=== PATIENT | male | born 1940 | race Caucasian/White ===

== ENCOUNTER → 2017-12-11 09:37 | Outpatient (CLI) | payer MEDICARE, OTHER, SELFPAY ==
--- NOTE | 2017-12-11 09:43 | ECHOD_ITS ---
Reason For Study: S/P CABG Procedure This was a 2D Doppler, Color Flow transthoracic echocardiogram. Exam performed in department. Left Ventricle Normal LV size. Left ventricular systolic function is normal. The estimated ejection fraction is 50 %. Transmitral diastolic flow velocities suggest severe (stage 3) diastolic dysfunction. No regional wall motion abnormalities noted. Right Ventricle Normal RV size. Normal systolic function. Atria Normal left atrium. Normal right atrium. Mitral Valve Bileaflet diffuse mitral valve thickening. Mild (1+) eccentric mitral valve insufficiency. Tricuspid Valve Normal tricuspid valve. Mild (1+) tricuspid valve insufficiency. Pulmonary artery systolic pressure is 35 mmHg. Aortic Valve Trisinus/trileaflet aortic valve. Mild diffuse aortic valve thickening. Pulmonic Valve Normal pulmonic valve. Mild (1+) pulmonic valve insufficiency. Great Vessels Normal aortic root. The pulmonary artery is normal size. Normal inferior vena cava. Pericardium/Pleural Small pericardial effusion. MMode/2D Measurements & Calculations LVIDd: 5.6 cm IVSd: 1.1 cm Ao root diam: 3.1 cm LVIDs: 4.4 cm LVPWd: 1.1 cm RVDd: 3.3 cm FS: 21.0 % LAV(MOD-bp): 51.8 ml EDV(MOD-sp4): 157.6 ml SV(MOD-sp4): 77.5 ml LAV(MOD-bp) Indexed: 24.4 ml/m2 ESV(MOD-sp4): 80.1 ml LAV(MOD-sp2): 54.1 ml EF(MOD-sp4): 49.2 % LAV(MOD-sp4): 46.0 ml LA A4 area: 17.0 cm2 RA A4 area: 16.3 cm2 Doppler Measurements & Calculations MV E max dre: 90.9 cm/sec Lat Peak E' Dre: 7.4 cm/sec Med Peak E' Dre: 4.8 cm/sec MV A max dre: 39.4 cm/sec E/E' lat: 12.3 E/E' med: 19.0 MV E/A: 2.3 Ao V2 max: 128.9 cm/sec LV V1 max: 105.0 cm/sec PA V2 max: 128.1 cm/sec Ao max P.6 mmHg LV V1 max P.4 mmHg TR max dre: 278.4 cm/sec TR max P.0 mmHg Interpretation Summary Normal LV size. Left ventricular systolic function is normal. The estimated ejection fraction is 50 %. Transmitral diastolic flow velocities suggest severe (stage 3) diastolic dysfunction Mild (1+) tricuspid valve insufficiency. Bileaflet diffuse mitral valve thickening. Compared to prior study, changes are noted. Ordering Physician: Jose Marquez Referring Physician: YESSICA KOWALSKI Performed By: Taya Amezcua, ANNEMARIE
== END ==
PROVIDERS: Family Provider Internal Medicine; PCP Internal Medicine; Visit Provider Internal Medicine Cardiovascular Disease
DX: Z98.890 Other specified postprocedural states (principal)
CPT/HCPCS: 93306

== ENCOUNTER → 2018-03-25 09:31 | Outpatient (CLI) | payer MEDICARE, OTHER, SELFPAY ==
[2018-03-25 11:21] LABS: AST(SGOT) 24 U/L (15-37); Alanine Aminotransfer ALT/SGPT 29 U/L (16-61); Albumin, Serum 3.4 g/dL (3.2-5.0); Alkaline Phosphatase 52 U/L (45-117); Bilirubin, Direct 0.23 mg/dL (0.00-0.30); Cholesterol 115 mg/dL (200); Globulin 3.8 g/dL (2.2-4.2); High Density Lipoprotein 44 mg/dL; Protein, Total 7.2 g/dL (6.4-8.2); Triglycerides 67 mg/dL; Very Low Density Lipoprotein 13 mg/dL (5-40)
--- NOTE | 2018-03-25 13:09 | LEAS ---
Arterial Study - Arterial Study Arterial Study: Bilateral extremity noninvasive arterial exam at rest Right lower extremity The right PT and DP ankle-brachial indices at rest are 0.39 and 0.37 respectively with digital index of 0.35. The right PT and DP upper waveforms are biphasic. Volume pulse recordings do demonstrate application the calf but the ankle waveforms are moderately depressed as are the digital waveforms. Left lower extremity The left PT and DP ankle-brachial index at rest are 1.06 and 1.06 respectively. The left digital index is 0.53. The left PT and DP Doppler waveforms are biphasic. Volume pulse recordings do not demonstrate amplification the calf ankle waveforms moderately depressed but interestingly the digital waveforms are well maintained. Impression Findings are consistent with multi segmental peripheral vascular occlusive disease involving the right lower extremity in the range of rest pain. The location of the disease cannot be determined the likely popliteal and infrageniculate. Resting indices are normal for the left lower extremity but digital brachial index are diminished suggestive distal small vessel disease. The patient could not be exercised secondary to the severe disease on the right. An exercise protocol might further delineate additional disease on the left. Clinical correlation would be appropriate. Julio Cesar Suarez M.D., F.A.C.S.
== END ==
PROVIDERS: Family Provider Internal Medicine; PCP Internal Medicine; Visit Provider Physician Assistant Medical
DX: I73.9 Peripheral vascular disease, unspecified (principal); I25.10 Atherosclerotic heart disease of native coronary artery without angina pectoris; I77.9 Disorder of arteries and arterioles, unspecified; I25.2 Old myocardial infarction
CPT/HCPCS: 36415; 80061; 80076; 93923

== ENCOUNTER → 2018-10-28 09:26 | Outpatient (CLI) | payer MEDICARE, OTHER, SELFPAY ==
[2018-10-07 10:01] VITALS: BMI 24.9
--- NOTE | 2018-10-28 09:30 | CDU_ITS ---
Reason For Study: bruit Rt. Velocities/BP Lt. Velocities/BP Prox CCA 51.3/9.5 cm/sec. Prox CCA 65.6/9.5 cm/sec. Mid CCA 51.3/5.2 cm/sec. Mid CCA 55.1/10.8 cm/sec. Dist CCA 47.3/9.5 cm/sec. Dist CCA 40.8/8.2 cm/sec. Prox ICA 46.0/10.8 cm/sec. Prox ICA 76.0/13.4 cm/sec. Mid ICA 90.4/21.3 cm/sec. Mid ICA 130.2/27.9 cm/sec. Dist ICA 86.5/18.6 cm/sec. Dist ICA 95.5/20.6 cm/sec. Rt. ICA/CCA = 1.8. Lt. ICA/CCA = 2.4. Prox ECA 59.1 cm/sec. Prox ECA 69.5 cm/sec. Rt. Vert. 53.9/9.5 cm/sec. Lt. Vert. 35.5/10.2 cm/sec. Right Extracranial There is homogeneous, smooth atherosclerotic plaque noted in the right common carotid artery. There is homogeneous, smooth atherosclerotic plaque noted in the right internal carotid artery. There is heterogeneous, irregular atherosclerotic plaque noted in the right external carotid artery. Antegrade flow is noted in the right vertebral artery. Left Extracranial There is homogeneous, smooth atherosclerotic plaque noted in the left common carotid artery. There is heterogeneous, irregular atherosclerotic plaque noted in the left internal carotid artery. There is homogeneous, smooth atherosclerotic plaque noted in the left external carotid artery. Antegrade flow is noted in the left vertebral artery. 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
== END ==
PROVIDERS: Family Provider Internal Medicine; PCP Internal Medicine; Referring Provider Internal Medicine Cardiovascular Disease; Visit Provider Internal Medicine Cardiovascular Disease
DX: I77.9 Disorder of arteries and arterioles, unspecified (principal); R55 Syncope and collapse
CPT/HCPCS: 93880

== ENCOUNTER → 2019-04-29 12:50 | Outpatient (CLI) | payer MEDICARE, OTHER, SELFPAY ==
[2019-04-12 13:26] VITALS: BMI 24.7
--- NOTE | 2019-04-29 12:52 | ECHOCS_ITS ---
Reason For Study: MURMUR Procedure This was a 2D Doppler, Color Flow transthoracic echocardiogram. The study was technically difficult. PT had difficulty lying in the left lateral decubitus position even with wedge aids. Contrast injection was performed. Exam performed in department. Left Ventricle Normal LV size. The estimated ejection fraction is 40 %. Moderate segmental systolic dysfunction (see wall motion). Stage 2 diastolic dysfunction. Mid-Inferior: Akinetic. Infero-Basal: Akinetic. Inferior [place] : Hypokinetic. Basal inferoseptal: Hypokinetic. Mid-Posterior: Hypokinetic. Right Ventricle Normal RV size. Normal systolic function. Atria The left atrium is moderately enlarged. Normal right atrium. Mitral Valve Mild diffuse mitral valve thickening. Mild (1+) eccentric mitral valve insufficiency. Tricuspid Valve Normal tricuspid valve. Aortic Valve Trisinus/trileaflet aortic valve. Mild focal aortic valve calcification. Pulmonic Valve Normal pulmonic valve. Great Vessels Normal aortic root. The pulmonary artery is normal size. Normal inferior vena cava. Pericardium/Pleural No pericardial effusion. Medication 22 gauge I.V. with prn adaptor inserted into right arm. Diluted definity 3.0ml given slow IV push to enhance endocardial definition. MMode/2D Measurements & Calculations LVIDd: 5.8 cm IVSd: 1.1 cm Ao root diam: 3.1 cm LVIDs: 3.9 cm LVPWd: 1.1 cm FS: 32.4 % LAV(MOD-bp): 90.6 ml LA A4 area: 26.3 cm2 LA dimension(2D): 4.0 cm LAV(MOD-bp) Indexed: 44.3 ml/m2 LAV(MOD-sp2): 77.5 ml LAV(MOD-sp4): 101.7 ml RA A4 area: 17.1 cm2 Time Measurements MV dec time: 0.18 sec Doppler Measurements & Calculations MV E max dre: 79.2 cm/sec Lat Peak E' Dre: 7.7 cm/sec Med Peak E' Dre: 3.7 cm/sec MV A max dre: 62.8 cm/sec E/E' lat: 10.3 E/E' med: 21.1 MV E/A: 1.3 Ao V2 max: 95.1 cm/sec LV V1 max: 72.8 cm/sec PA V2 max: 100.3 cm/sec Ao max P.6 mmHg LV V1 max P.1 mmHg Interpretation Summary Normal LV size. The estimated ejection fraction is 40 %. Moderate segmental systolic dysfunction (see wall motion). Stage 2 diastolic dysfunction. The left atrium is moderately enlarged. Segmental wall motion is new. Compared to previous study, the left ventricular systolic function has worsened.. Ordering Physician: Seema Yanes Referring Physician: Karen Lowe Performed By: Tamika Marley RDCS, RVT
== END ==
PROVIDERS: Family Provider Internal Medicine; PCP Internal Medicine; Referring Provider Physician Assistant Medical; Visit Provider Physician Assistant Medical
DX: I25.10 Atherosclerotic heart disease of native coronary artery without angina pectoris (principal); R01.1 Cardiac murmur, unspecified
CPT/HCPCS: 93306; Q9957; A4216; C8929

== ENCOUNTER 2019-08-21 20:11 | Emergency (ER) | payer MEDICARE, OTHER, SELFPAY ==
[2019-04-12 13:26] VITALS: BMI 24.7
[2019-08-21 20:12] VITALS: BP 149/84; PULSE 107; RESP 24; TEMP 36.8; O2SAT 100; BMI 25.2
--- NOTE | 2019-08-21 20:40 | EKG12_ITS ---
Test Reason : WEAKNESS Blood Pressure : / mmHG Vent. Rate : 103 BPM Atrial Rate : 103 BPM P-R Int : 218 ms QRS Dur : 138 ms QT Int : 352 ms P-R-T Axes : 037 -65 095 degrees QTc Int : 461 ms Sinus tachycardia with 1st degree A-V block with Premature supraventricular complexes Possible Left atrial enlargement Left axis deviation Right bundle branch block Left ventricular hypertrophy with repolarization abnormality Lateral infarct , age undetermined Inferior infarct , age undetermined Abnormal ECG Confirmed by LUISA URENA, CARLOS ([id number]), book or script editor JUANITA JANE ([id number]) on 08/24/2019 1:40:31 PM Referred By: BOUBACAR Confirmed By:CARLOS MORAN MD
--- NOTE | 2019-08-21 20:40 | RAD_ITS ---
STUDY: X-RAY CHEST REASON FOR EXAM: Male, 79 years old. Pt has been weak for last 2 days, Pleural effusion, CAD, CABG TECHNIQUE: Single frontal view of the chest. COMPARISON: 07/31/27. FINDINGS: Cardiac silhouette unremarkable. Pulmonary vascularity unremarkable. Aorta unremarkable. Median sternotomy wires are noted. Left base opacity opacity No pleural effusions. Upper abdomen unremarkable. Osseous structures intact. No pneumothorax. RAD/Chest 1 View (Portable) IMPRESSION: Opacity at the left base most likely represents atelectasis and effusion. Underlying pneumonia should be excluded clinically. Electronically Signed: Zohaib Carrillo, at 21:09 EST Tel , Service support ,
[2019-08-21 20:55] LABS: Absolute Neutrophil Count 14.3 X10^3/uL (2.0-7.7); Basophil# 0.03 X10^3/uL; Basophil% 0.2 % (0-1); Eosinophil# 0.03 X10^3/uL; Eosinophils% 0.2 % (0-5); Hematocrit 39.4 % (40-54); Hemoglobin 13.2 g/dL (13.0-16.5); Lymphocyte % 3.6 % (19-41); Mean Corp Hgb Conc 33.5 g/dL (32-36); Mean Corpuscular Hgb 30.3 pg (27.0-32.0); Mean Corpuscular Volume 90.4 fL (80-94); Mean Platelet Vol. 11.5 fl (6.2-12.0); Monocyte# 1.66 X10^3/uL; NRBC Flagged by Analyzer 0 % (0-5); Neutrophil # 14.25 X10^3/uL (2.7-7.7); Neutrophil % 85.5 % (47-70); POSITIVE DIFFERENTIAL YES; Platelet Count 250 K/mm3 (150-450); RBC Distribution Width CV 13.9 % (11.6-14.6); RBC Distribution Width SD 46.3 fl (35.1-43.9); Red Blood Count 4.36 M/mm3 (4.6-6.2); White Blood Count 16.7 K/mm3 (4.4-11.0)
[2019-08-21 20:56] LABS: Differential Indicated SCAN CRITERIA MET
[2019-08-21 21:01] LABS: International Normalized Ratio 1.3; Prothrombin Time (Protime)PT. 16.4 SECONDS (11.7-14.9)
[2019-08-21 21:02] LABS: Partial Thromboplast Time 42.6 Seconds (24.1-36.2)
[2019-08-21] MEDS: 0.9% Normal Saline 1,000 ML 999 ML IV (21:05)
[2019-08-21 21:06] VITALS: BP 142/78; PULSE 99; RESP 18; O2SAT 99
[2019-08-21 21:10] LABS: ALB/GLOB Ratio 0.7 RATIO (0.9-2.4); AST(SGOT) 159 U/L (15-37); Alanine Aminotransfer ALT/SGPT 132 U/L (16-61); Albumin, Serum 3.1 g/dL (3.2-5.0); Alkaline Phosphatase 107 U/L (45-117); Anion Gap 7 (5-15); BUN 26 mg/dL (7-18); BUN/Creat Ratio 19.3 RATIO (10-20); Calcium,Total 9.5 mg/dL (8.5-10.1); Chloride 102 mmol/L (98-107); Creatinine, Serum 1.35 mg/dL (0.70-1.30); EST Glomerular Filtration Rate 54 mL/min (>60); Est Glom Filt Rate - Afr Amer 66 mL/min (>60); Globulin 4.6 g/dL (2.2-4.2); Glucose 198 mg/dL (74-106); Potassium 4.2 mmol/L (3.5-5.1); Protein, Total 7.7 g/dL (6.4-8.2); Sodium Level 136 mmol/L (136-145)
--- NOTE | 2019-08-21 21:26 | CT_ITS ---
ACR Level 3 findings have been noted. An addendum which confirms receipt of the report will follow. HISTORY: WEAKNESS X 2 DAYS,ELEVATED WBC,LT SIDED PLEURAL EFFUSION BOGDAN ON CXR,VOMITINGHX:DIABETES,CAD WITH CABG TECHNIQUE: Helically acquired images were obtained of the chest. A radiation dose optimization technique was used for this scan. IV Contrast dosage and agent: None. COMPARISON: Comparison chest x-ray is from 1-1/2 hours earlier FINDINGS: # of images incl. paperwork: [phone] Sternal wires are present. The sternum has incompletely healed from the median sternotomy, but it is a chronic finding. Mediastinal clips related to CABG LUNGS AND LARGE AIRWAYS: Left lower lobe is mostly collapsed with little aeration. Volume loss within the left upper lobe as well. An assessory fissure is present within the right lower lobe extending from a right hilar partially calcified mass. This mass measures 3.7 x 2.5 cm. There appears to be some gas in a cavity surrounding this mass. There is some bronchiectasis to the bronchi surrounding the mass and peripheral to the mass. This mass appears to be within the bronchus to the right lower lobe perhaps. PLEURA: The moderate-sized left pleural effusion appears to have an enhancing rind of tissue surrounding it suggesting that it is chronic and possibly an empyema. Tiny right pleural effusion BONES: Degenerative disc disease. No lytic or blastic disease. Within the thoracic spine vertebral body height is well preserved other than some mild wedging of mid thoracic spine at the apex of a mild kyphosis. Many bridging anterior enthesophytes. Some facet arthropathy. Ossification of the interspinous ligaments at many levels without ankylosing. No acute rib lesions are perceived HEART AND PERICARDIUM: Severe coronary artery calcific ASCVD. Some left ventricular hypertrophy VESSELS: Atherosclerotic plaque within the thoracic aorta with slight elongation of the aorta, but without aneurysm MEDIASTINUM AND ELINA: Some mediastinal adenopathy is present. I can perceived no hilar adenopathy, however, differentiation of hilar tissues without the use of intravenous contrast is diminished SOFT TISSUES: Included thyroid gland is unremarkable. There is no axillary, supraclavicular or lower cervical adenopathy. UPPER ABDOMEN: The gallbladder is distended. A right renal mass is present, likely a benign cyst. CT/Chest without Contrast IMPRESSION: Moderately sized loculated left pleural effusion possibly an empyema. Severe left lower lobe volume loss. Severe coronary artery calcific ASCVD. 3.7 x 2.5 cm mass within the right hilar region extending to the right lower lobe with air surrounding this mass. I believe this may be a large broncholith. A fungus ball with calcification from chronic infection is also within the differential. Individualized dose optimization techniques were used for this CT. at 2323 Reported and signed by: Antonino Kohli MD Electronically Signed: Antonino Kohli MD at 23:21 EST Tel , Service support ,
--- NOTE | 2019-08-21 21:26 | CT_ITS ---
HISTORY: WEAKNESS AND VOMITING X 2 DAYS,ELEVATED WBC,LT SIDED PLEURAL EFFUSION SEEN ON CXRHX:DIABETES,CAD WITH CABG TECHNIQUE: Helically acquired images were obtained of the abdomen and pelvis following the intravenous administration of 100 ML of Isovue 300 Iodinated contrast. 2D reformats. No oral contrast was administered. A radiation dose optimization technique was used for this scan. COMPARISON: No previous cross-sectional imaging of the abdomen and pelvis FINDINGS: # of images incl. paperwork: [phone] LUNG BASES: Rim-enhancing rind of left pleural fluid suggestive of possible empyema. Severe volume loss to the left hemithorax. Some interstitial pulmonary edema. Coronary artery calcific ASCVD. Left ventricular hypertrophy. CT abdomen: Distended gallbladder with thickened enhancing wall. The gallbladder is without identified stones. Multilevel degenerative disc disease with lower lumbar spine facet arthropathy. Liver, spleen, pancreas, and adrenal glands, are normal. Hypodense mass within the right kidney statistically represents a benign cyst. There appears to be some old scarring within the superior lateral aspect of the left kidney.. The aorta is diseased with atherosclerotic plaque, without aneurysm or dissection. CT pelvis: No ascites is present. The prostate gland is not enlarged. The appendix is normal. Series 5 image 84. The bladder is normal. Bowel-gas pattern is normal. CT/Abdomen/Pelvis W IV Cont ONLY IMPRESSION: Rind of tissue in the left hemithorax consistent with a empyema. Calcified mass within the bronchi to the right lower lobe better described on the chest CT findings. Gallbladder wall thickening and distention of the gallbladder suggestive of acute cholecystitis. Some additional images were obtained through the pelvis and scrotum after a delay. The bladder begins to fill with excreted contrast. A specific mass is present within the right hemipelvis of unknown etiology. It measures 8 cm. It may just be a large right hydrocele. It appears to be herniating up into the right inguinal canal. Recommend comparison to physical exam, and consider possible testicular ultrasound for further evaluation. Individualized dose optimization techniques were used for this CT. at 2328 Reported and signed by: Antonino Kohli MD Electronically Signed: Antonino Kohli MD at 23:27 EST Tel , Service support ,
[2019-08-21 21:31] LABS: Differential Comment SCANNED
[2019-08-21 21:56] VITALS: TEMP 37.4
[2019-08-21 22:30] LABS: Lactic Acid 1.3 mmol/L (0.4-1.9)
--- NOTE | 2019-08-21 22:34 | ED.DCSUM_ITS ---
History of Present Illness Chief Complaint: Weakness Informant: Patient Onset: Days Context: Gradual Onset Timing: Continuous Narrative: Patient is a 79-year-old male presenting with worsening weakness. His symptoms have been significantly worsened over the past few days but the exact time of onset is not clear. She notes 3 days ago he had an episode of vomiting. He notes he had intermittent pain in his right upper quadrant that he describes as a gas bubble. He feels that if he rubs it the pain gets better. Patient also notes has had intermittent pain in his arms and his shoulders. He denies any shortness of breath or chest pain. He has had associated cough. Today he was so weak that he was not able to get himself out of bed. Family called 911 because of this. Patient actually had a lower himself to the ground because he was so weak he could not stand. Patient denies any fever or chills. He states his cough is been productive of some sputum intermittently. Patient notes he has been eating and drinking less because he has been feeling so unwell. Patient denies any other complaints at this time. Past Medical History - Allergies and Home Meds Allergies/Adverse Reactions: Allergies Ovvgejj-Kon-Clc Reductase Inhibitor Adverse Reaction (Severe, Verified 08/21/19 20:15) mylagias Primary Care Physician: Karen Lowe MD [Primary Care Provider] - Past Medical History: - - [place] artery disease, history of [place], insulin-dependent diabetes mellitus, history of stroke as a complication of his CABG Surgical History: coronary bypass surgery Smoking Status: Never smoker Alcohol: None Drugs: None - Family History Paternal Family History: Reports: Heart Disease Review of Systems General: Reports: Malaise, Sweats. Denies: Chills, Fever Eyes: Denies: Visual changes - bilaterally, Diplopia ENT: Denies: Rhinorrhea, Sore throat Cardiovascular: Denies: Chest pain, Palpitations Respiratory: Reports: Cough. Denies: Dyspnea, Dyspnea on exertion Gastrointestinal: Reports: Abdominal pain - Upper quadrant?intermittent, Nausea, Vomiting - X1. Denies: Diarrhea, Melena, Hematochezia Genitourinary: Denies: Dysuria, Hematuria, Frequency Musculoskeletal: Denies: Back pain, Extremity Pain Skin: Denies: Rash, Wounds Neurological: Reports: Weakness - Generalized. Denies: Headache, Numbness Physical Exam Vital Signs/Narrative: Vital Signs Temp Pulse Resp BP Pulse Ox 08/21/19 21:56 99.4 F H 08/21/19 21:06 99 18 142/78 H 99 08/21/19 20:12 98.3 F 107 H 24 H 149/84 H 100 Inital Vital Signs reviewed: Yes General: Well nourished, Well developed, No Acute Distress Head: Normocephalic, Atraumatic Eyes: Perrl, EOMI ENT: Moist mucous membranes, No rhinorrhea, TM's clear Neck: Supple, Nontender, No JVD Cardiovascular: Regular rhythm, No murmurs, Tachycardia Respiratory: No distress, Chest nontender, Diminished - Left side. Negative for: Rales, Rhonchi, Wheezing, Chest tenderness Abdomen: Soft, Nondistended, Normal bowel sounds, Tender - Mild tenderness, nonspecific. Negative for: Guarding, Rebound tenderness Back: Nontender, Normal Inspection. Negative for: CVA tenderness Extremities: Nontender, No edema Skin: Normal color, No rash Neurological: Alert, Oriented x3, Cranial nerves II-XII grossly intact, Normal Strength, Normal Sensation Psychological: Normal affect, Normal Mood Diagnostic/Tx/Re-eval Chest X-Ray - ED: 1 View, Read by ED Physician, Read by Radiologist, Left Effusion Clinical Impression(s) from Imaging Studies Chest X-Ray 08/21/19 20:40 IMPRESSION: Opacity at the left base most likely represents atelectasis and effusion. Underlying pneumonia should be excluded clinically. Electronically Signed: Zohaib Carrillo, at 21:09 EST Tel , Service support , Abdomen/Pelvis CT 08/21/19 21:26 IMPRESSION: Rind of tissue in the left hemithorax consistent with a empyema. Calcified mass within the bronchi to the right lower lobe better described on the chest CT findings. Gallbladder wall thickening and distention of the gallbladder suggestive of acute cholecystitis. Some additional images were obtained through the pelvis and scrotum after a delay. The bladder begins to fill with excreted contrast. A specific mass is present within the right hemipelvis of unknown etiology. It measures 8 cm. It may just be a large right hydrocele. It appears to be herniating up into the right inguinal canal. Recommend comparison to physical exam, and consider possible testicular ultrasound for further evaluation. Individualized dose optimization techniques were used for this CT. at 2328 Reported and signed by: Antonino Kohli MD Electronically Signed: Antonino Kohli MD at 23:27 EST Tel , Service support , Chest CT 08/21/19 21:26 IMPRESSION: Moderately sized loculated left pleural effusion possibly an empyema. Severe left lower lobe volume loss. Severe coronary artery calcific ASCVD. 3.7 x 2.5 cm mass within the right hilar region extending to the right lower lobe with air surrounding this mass. I believe this may be a large broncholith. A fungus ball with calcification from chronic infection is also within the differential. Individualized dose optimization techniques were used for this CT. at 2323 Reported and signed by: Antonino Kohli MD Electronically Signed: Antonino Kohli MD at 23:21 EST Tel , Service support , ADDENDUM: 08/21/19 2332 IMPRESSION: Moderately sized loculated left pleural effusion possibly an empyema. Severe left lower lobe volume loss. Severe coronary artery calcific ASCVD. 3.7 x 2.5 cm mass within the right hilar region extending to the right lower lobe with air surrounding this mass. I believe this may be a large broncholith. A fungus ball with calcification from chronic infection is also within the differential. Individualized dose optimization techniques were used for this CT. at 2323 Reported and signed by: Antonino Kohli MD N.B. : Dr. Angela Peraza MD, confirmed on 08/21/2019 23:25:54 (ET) that the referring physician received the radiology report. Electronically Signed: Antonino Kohli MD at 23:21 EST Tel , Service support , Laboratory Data 08/21/19 08/21/19 08/21/19 20:20 20:20 20:20 WBC 16.7 H RBC 4.36 L Hgb 13.2 Hct 39.4 L MCV 90.4 MCH 30.3 MCHC 33.5 RDW Std Deviation 46.3 H RDW Coeff of Sacha 13.9 Plt Count 250 MPV 11.5 Immature Gran % (Auto) 0.500 Neut % (Auto) 85.5 H Lymph % (Auto) 3.6 L [place] % (Auto) 10.0 Eos % (Auto) 0.2 Baso % (Auto) 0.2 Absolute Neuts (auto) 14.3 H Absolute Lymphs (auto) 0.60 L Nucleated RBC % 0 Differential Comment SCANNED Diff Path Review May foll PT 16.4 H INR 1.3 APTT 42.6 H Sodium 136 Potassium 4.2 Chloride 102 Carbon Dioxide 27.0 Anion Gap 7 BUN 26 H Creatinine 1.35 H Estim Creat Clear Calc 49.50 Est GFR (MDRD) Af Amer 66 Est GFR (MDRD) Non-Af 54 L BUN/Creatinine Ratio 19.3 Glucose 198 H Lactic Acid Calcium 9.5 Total Bilirubin 4.30 H Direct Bilirubin AST 159 H ALT 132 H Alkaline Phosphatase 107 Troponin I 0.033 Total Protein 7.7 Albumin 3.1 L Globulin 4.6 H Albumin/Globulin Ratio 0.7 L Urine Color Urine Clarity Urine pH Ur Specific [place] Urine Protein Urine Glucose (UA) Urine Ketones Urine Occult Blood Urine Nitrite Urine Bilirubin Urine Urobilinogen Ur Leukocyte Esterase Urine RBC Urine WBC Ur Squamous Epith Cells Ur Renal Epithelial Cell Urine Bacteria Hyaline Casts Urine Mucus 08/21/19 08/21/19 08/21/19 20:20 20:58 21:50 WBC RBC Hgb Hct MCV MCH MCHC RDW Std Deviation RDW Coeff of Sacha Plt Count MPV Immature Gran % (Auto) Neut % (Auto) Lymph % (Auto) [place] % (Auto) Eos % (Auto) Baso % (Auto) Absolute Neuts (auto) Absolute Lymphs (auto) Nucleated RBC % Differential Comment Diff Path Review PT INR APTT Sodium Potassium Chloride Carbon Dioxide Anion Gap BUN Creatinine Estim Creat Clear Calc Est GFR (MDRD) Af Amer Est GFR (MDRD) Non-Af BUN/Creatinine Ratio Glucose Lactic Acid Cancelled 1.3 Calcium Total Bilirubin Direct Bilirubin 3.33 H AST ALT Alkaline Phosphatase Troponin I Total Protein Albumin Globulin Albumin/Globulin Ratio Urine Color Urine Clarity Urine pH Ur Specific [place] Urine Protein Urine Glucose (UA) Urine Ketones Urine Occult Blood Urine Nitrite Urine Bilirubin Urine Urobilinogen Ur Leukocyte Esterase Urine RBC Urine WBC Ur Squamous Epith Cells Ur Renal Epithelial Cell Urine Bacteria Hyaline Casts Urine Mucus 08/21/19 22:45 WBC RBC Hgb Hct MCV MCH MCHC RDW Std Deviation RDW Coeff of Sacha Plt Count MPV Immature Gran % (Auto) Neut % (Auto) Lymph % (Auto) [place] % (Auto) Eos % (Auto) Baso % (Auto) Absolute Neuts (auto) Absolute Lymphs (auto) Nucleated RBC % Differential Comment Diff Path Review PT INR APTT Sodium Potassium Chloride Carbon Dioxide Anion Gap BUN Creatinine Estim Creat Clear Calc Est GFR (MDRD) Af Amer Est GFR (MDRD) Non-Af BUN/Creatinine Ratio Glucose Lactic Acid Calcium Total Bilirubin Direct Bilirubin AST ALT Alkaline Phosphatase Troponin I Total Protein Albumin Globulin Albumin/Globulin Ratio Urine Color Dk Yello Urine Clarity Sl. Cloudy Urine pH 5.0 Ur Specific [place] 1.015 Urine Protein 100 H Urine Glucose (UA) Normal Urine Ketones 5 H Urine Occult Blood 25 H Urine Nitrite Negative Urine Bilirubin 3 H Urine Urobilinogen 12 H Ur Leukocyte Esterase 25 H Urine RBC 0 SEEN Urine WBC 0 SEEN Ur Squamous Epith Cells 0-5 SEEN Ur Renal Epithelial Cell 0-5 SEEN Urine Bacteria RARE Hyaline Casts 0-5 SEEN Urine Mucus RARE - Rhythm Strip Rhythm Strip: Sinus Tach Rate: 103 Ectopy: None - EKG Initial EKG Interpretation: Sinus Tachycardia, RBBB, - - Sinus tachycardia at a rate of 103 with first-degree AV block AR interval 218 QRS 138 QTc [address] depressions in V2 and V3, no reciprocal changes Compared to prior EKG on 07/21/[address] depressions are more pronounced but there is no other changes - Medical Decision Making She is evaluated for generalized weakness. On arrival he is tachycardic and tachypneic. He is not requiring supplemental oxygen and his blood pressure is normal. Patient does appear clinically dry. He also comments that he has had episode of vomiting and this intermittent abdominal discomfort. Flu swab is negative. EKG shows some ST depressions in V3. I suspect this is more of a strain pattern secondary to his critical illness. Patient's troponin is normal. He is not having any chest pain. Patient is given a liter of IV fluids. Chest x-ray shows a possible effusion on the left side with questionable underlying pneumonia. CT of the chest without contrast is added on for further evaluation of this. In addition patient is found to have an elevated bilirubin, ALT and AST. His alkaline phosphatase is normal. Leukocytosis is present on his CBC. Patient has a mild VALERIO. On repeat abdominal exam patient is having some tenderness in his right upper quadrant. A CT of the abdomen pelvis with IV contrast is added on. CT of the chest shows a likely empyema on the left as wel l as mass on the right concerning for broncholith or possibly a fungal ball. CT of the abdomen and pelvis shows likely acute cholecystitis as well as a right hemipelvis mass (is possibly a large right hydrocele). Patient's clinical presentation is most concerning for acute cholecystitis. He is not been having any testicular pain or swelling. I discussed with Dr. Power, surgery on- call, who is concerned because we do not have cardiothoracic capabilities and recommends transfer to a higher level of care. Patient and family would like to go to [facility]. Transfer line discussed the case with cardiothoracic as well as general surgery. They request the patient be transferred to the emergency room where surgical scrub technologist can evaluate him and final disposition can be made. Case discussed with ER physician, Dr. Arango who is agreeable with plan. Patient is started on vancomycin and Zosyn prior to transfer. Patient is kept n.p.o. Patient and family are counseled on plan. Patient remains hemodynamically stable in the emergency room. ED Disposition - Plan for ED Patient: Disposition: [facility] Diagnosis: Acute cholecystitis, Transaminitis, Leukocytosis, Elevated bilirubin, Empyema of left pleural space, Mass of right lung, Dehydration, Abnormal EKG, VALERIO (acute kidney injury) Referrals: Karen Lowe MD [Primary Care Provider] -
[2019-08-21 22:52] LABS: Red Blood Cells-Urine 0 SEEN /hpf (0-5); White Blood Cells 0 SEEN /hpf (0-5)
[2019-08-21 22:58] LABS: Glucose, Dipstick Normal (Normal); Ketone-Dipstick 5 mg/dl (Negative); Leukocyte Esterase-Dipstick 25 /ul (Negative); Nitrite-Dipstick Negative (Negative); Occult Blood-Urine 25 /ul (Negative); Protein-Dipstick 100 mg/dl (Negative); Specific Gravity, Urine 1.015 (1.002-1.030); Urine Clarity Sl. Cloudy (Clear); Urine Urobilinogen 12 mg/dl (Normal)
[2019-08-21 22:59] VITALS: BP 136/68; PULSE 95; RESP 20; O2SAT 98
[2019-08-21 22:59] LABS: Color, Urine Dk Yello (Yellow); Urine Bilirubin Dipstick 3 mg/dL (Negative)
[2019-08-21 22:59] LABS: Bilirubin, Direct 3.33 mg/dL (0.00-0.30)
[2019-08-21 23:00] VITALS: BP 136/68; PULSE 95; RESP 20; O2SAT 98
[2019-08-21 23:04] LABS: Renal Epithelial Cells 0-5 SEEN /hpf (0-5); Squamous Epithelial Cells - UA 0-5 SEEN /hpf (0-5)
[2019-08-21 23:05] LABS: Bacteria RARE /hpf (None Seen); Mucous, Urine RARE /hpf (<or=2+)
[2019-08-21 23:06] LABS: Hyaline Cast 0-5 SEEN /lpf (0-5)
[2019-08-22 00:14] VITALS: BP 147/77; PULSE 94; RESP 20; TEMP 36.6; O2SAT 98
--- NOTE | 2019-08-22 00:16 | ED.RN ---
DR. GRANDA INFORMED OF SEPSIS ALERT. NO NEW ORDERS AT THIS TIME. PT AWAITING TRANSFER TO [facility].
[2019-08-22 01:03] VITALS: BP 153/74; PULSE 95; RESP 27; TEMP 36.6; O2SAT 98
[2019-08-22 01:05] VITALS: TEMP 36.6
--- NOTE | 2019-08-22 01:38 | ED.RN ---
IV VANCOMYCIN CONTINUED ON TRANSPORT.
[2019-08-22 12:30] LABS: Pathologist Review Reviewed
== END 2019-08-22 01:45 | disposition short-term general hospital (02) ==
PROVIDERS: Emergency Provider Emergency Medicine; PCP Internal Medicine
DX: K81.0 Acute cholecystitis (principal); R74.0 Nonspecific elevation of levels of transaminase and lactic acid dehydrogenase [LDH]; D72.829 Elevated white blood cell count, unspecified; E80.6 Other disorders of bilirubin metabolism; J86.9 Pyothorax without fistula; R91.8 Other nonspecific abnormal finding of lung field; E86.0 Dehydration; R94.31 Abnormal electrocardiogram [ECG] [EKG]; N17.9 Acute kidney failure, unspecified; R10.11 Right upper quadrant pain; I45.10 Unspecified right bundle-branch block; I25.2 Old myocardial infarction; E11.9 Type 2 diabetes mellitus without complications; Z79.4 Long term (current) use of insulin; Z95.1 Presence of aortocoronary bypass graft; Z86.73 Personal history of transient ischemic attack (TIA), and cerebral infarction without residual deficits
CPT/HCPCS: 36415; 71045; 71250; 74177; 80053; 81001; 82248; 83605; 84484; 85025; 85610; 85730; 87040; 87086; 87804; 93005; 96361; 96365; 96367; 99285; J7030; J7050; Q9967; A4216

== ENCOUNTER 2020-07-22 12:02 | Inpatient (IN) | payer MEDICARE, OTHER, SELFPAY ==
[2020-05-16 13:01] VITALS: BMI 25.0
[2020-07-22] VITALS (12 sets, daily range): BP systolic 135–169; BP diastolic 11–101; PULSE 81–104; RESP 15–27; TEMP 36.7–37.3; O2SAT 95–100; BMI 25.2; BMI 24.6
--- NOTE | 2020-07-22 12:34 | RAD_ITS ---
STUDY: X-RAY CHEST REASON FOR EXAM: Male, 79 years old. Slid out of bed yesterday TECHNIQUE: Single AP portable view of the chest. COMPARISON: 08/21/2019 FINDINGS: Persistent blunting of left costophrenic angle. Mild stranding/scarring in the left lung base. No new infiltrate is seen. Sternal cerclage wires and vascular clips are present from a prior sternotomy and coronary artery bypass graft procedure (CABG). Normal mediastinum and pretty. Normal visualized pulmonary arteries. Normal visualized aortic arch and descending thoracic aorta. No demonstrated acute osseous changes. There is no demonstrated abnormality of the visualized soft tissue structures of the upper abdomen. RAD/Chest 1 View (Portable) IMPRESSION: Blunting of the left costophrenic angle likely due to pleural thickening. Otherwise no active pulmonary disease. Electronically Signed: Esteban Zaidi MD at 13:24 EST Tel , Service support ,
--- NOTE | 2020-07-22 12:34 | EKG12_ITS ---
Test Reason : Blood Pressure : / mmHG Vent. Rate : 095 BPM Atrial Rate : 095 BPM P-R Int : 292 ms QRS Dur : 140 ms QT Int : 404 ms P-R-T Axes : -23 -65 100 degrees QTc Int : 507 ms Sinus rhythm with 1st degree A-V block with Premature supraventricular complexes and with occasional Premature ventricular complexes Left axis deviation Right bundle branch block Left ventricular hypertrophy with repolarization abnormality Possible Lateral infarct , age undetermined Inferior infarct , age undetermined Abnormal ECG Confirmed by KRIS URENA, MARCO ([id number]), supervising editor trailer JUANITA JANE ([id number]) on 07/26/2020 10:19:07 AM Referred By: GUILLAUME Confirmed By:STEPHANIE PONCE MD
--- NOTE | 2020-07-22 12:36 | ED.DCSUM_ITS ---
History of Present Illness Chief Complaint: General Illness Informant: Patient Narrative: 79-year-old male presenting with generalized weakness. He states he had a fall yesterday in which he states he slid down off of his mattress. He denies hitting his head. Prior to this he felt lightheaded and generally weak. Normally is able to ambulate. He does not describe vertiginous dizziness. He denies chest pain, palpitations, shortness of breath. He has a chronic cough which is unchanged. She denies fever, chills, change in taste or smell. On arrival to the ED he had one episode of emesis but he states it is because the EMS cot was spun around several times and made him feel dizzy. 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 Past Medical History - Allergies and Home Meds Allergies/Adverse Reactions: Allergies Mheyjyn-Ipl-Qzp Reductase Inhibitor Adverse Reaction (Severe, Verified 07/22/20 12:09) mylagias lisinopril Adverse Reaction (Verified 07/22/20 12:09) cough Prior records reviewed: Yes Past Medical History: - - Reviewed in problem list Surgical History: coronary bypass surgery Lives: Alone Smoking Status: Never smoker Alcohol: None Drugs: None - Family History Paternal Family History: Reports: Heart Disease Maternal Family History: Reports: - - Patient denies any [place] maternal family history including heart disease, diabetes, cancer. Review of Systems General: Reports: Malaise, - - Lightheadedness. Denies: Chills, Fever, Sweats Eyes: Denies: Visual changes - bilaterally, Diplopia ENT: Denies: Rhinorrhea, Sore throat Cardiovascular: Denies: Chest pain, Palpitations, Heart racing Respiratory: Denies: Dyspnea, Sputum Gastrointestinal: Denies: Abdominal pain, Nausea, Vomiting Genitourinary: Denies: Dysuria, Hematuria Musculoskeletal: Reports: Back pain. Denies: Myalgias, Arthralgias Skin: Denies: Rash, Wounds Neurological: Denies: Parasthesia, Numbness Psych: Denies: Depression Physical Exam Vital Signs/Narrative: Vital Signs Temp Pulse Resp BP Pulse Ox 07/22/20 12:08 169/85 H 07/22/20 12:03 99.1 F 104 H 20 H 95 General: Well nourished, No Acute Distress Head: Normocephalic, Atraumatic Eyes: Perrl, EOMI ENT: Moist mucous membranes, No rhinorrhea Cardiovascular: Regular rate, Regular rhythm Respiratory: No distress, Diminished - Left lung base Abdomen: Soft, Nontender : - - Right-sided scrotal swelling. Nontender. No ecchymosis. No rash. Extremities: Negative for: Nontender, No edema Skin: Negative for: Normal color, No rash, Cyanosis Neurological: Alert, Oriented x3, Cranial nerves II-XII grossly intact Psychological: Normal affect, Normal Mood Diagnostic/Tx/Re-eval Clinical Impression(s) from Imaging Studies Chest X-Ray 07/22/20 12:34 IMPRESSION: Blunting of the left costophrenic angle likely due to pleural thickening. Otherwise no active pulmonary disease. Electronically Signed: Esteban Zaidi MD at 13:24 EST Tel , Service support , Lumbar Spine X-Ray 07/22/20 12:39 IMPRESSION: 1. Degenerative changes of the spine, as detailed above. 2. No demonstrated acute fracture. Electronically Signed: Esteban Zaidi MD at 13:26 EST Tel , Service support , Chest CTA 07/22/20 14:16 IMPRESSION: Normal CTA chest examination, without a demonstrated pulmonary embolism or arterial dissection. Stable prominent loculated left pleural effusion with a thick wall causing marked compressive atelectasis of the left lung. Electronically Signed: Juancarlos Lynch MD at 15:35 EST , Service support , Laboratory Data 07/22/20 07/22/20 07/22/20 12:23 12:23 12:23 WBC 9.8 RBC 4.17 L Hgb 12.6 L Hct 38.2 L MCV 91.6 MCH 30.2 MCHC 33.0 RDW Std Deviation 46.7 H RDW Coeff of Sacha 14.1 Plt Count 223 MPV 11.3 Immature Gran % (Auto) 0.200 Neut % (Auto) 88.6 H Lymph % (Auto) 3.5 L [place] % (Auto) 7.4 Eos % (Auto) 0.1 Baso % (Auto) 0.2 Absolute Neuts (auto) 8.7 H Absolute Lymphs (auto) 0.34 L Nucleated RBC % 0 Differential Comment SCANNED D-Dimer Quant (PE/DVT) Sodium 136 Potassium 4.3 Chloride 104 Carbon Dioxide 26.0 Anion Gap 6 BUN 22 H Creatinine 1.10 Estim Creat Clear Calc 60.75 Est GFR (MDRD) Af Amer 83 Est GFR (MDRD) Non-Af 69 BUN/Creatinine Ratio 20.0 Glucose 221 H Lactic Acid 1.7 Calcium 8.8 Total Bilirubin 1.30 H AST 25 ALT 24 Alkaline Phosphatase 59 Troponin I 0.136 H Total Protein 7.3 Albumin 3.2 Globulin 4.1 Albumin/Globulin Ratio 0.8 L Procalcitonin Urine Color Urine Clarity Urine pH Ur Specific [place] Urine Protein Urine Glucose (UA) Urine Ketones Urine Occult Blood Urine Nitrite Urine Bilirubin Urine Urobilinogen Ur Leukocyte Esterase Urine RBC Urine WBC Ur Squamous Epith Cells Ur Transition Epith Cell Ur Renal Epithelial Cell Urine Bacteria Hyaline Casts Urine Mucus 07/22/20 07/22/20 07/22/20 12:23 12:23 12:40 WBC RBC Hgb Hct MCV MCH MCHC RDW Std Deviation RDW Coeff of Sacha Plt Count MPV Immature Gran % (Auto) Neut % (Auto) Lymph % (Auto) [place] % (Auto) Eos % (Auto) Baso % (Auto) Absolute Neuts (auto) Absolute Lymphs (auto) Nucleated RBC % Differential Comment D-Dimer Quant (PE/DVT) 2.68 H* Sodium Potassium Chloride Carbon Dioxide Anion Gap BUN Creatinine Estim Creat Clear Calc Est GFR (MDRD) Af Amer Est GFR (MDRD) Non-Af BUN/Creatinine Ratio Glucose Lactic Acid Calcium Total Bilirubin AST ALT Alkaline Phosphatase Troponin I Total Protein Albumin Globulin Albumin/Globulin Ratio Procalcitonin 0.18 H Urine Color Yellow Urine Clarity Clear Urine pH 5.0 Ur Specific [place] 1.020 Urine Protein 100 H Urine Glucose (UA) Normal Urine Ketones 50 H Urine Occult Blood 25 H Urine Nitrite Negative Urine Bilirubin Negative Urine Urobilinogen Normal Ur Leukocyte Esterase 25 H Urine RBC 0-5 SEEN Urine WBC 0-5 SEEN Ur Squamous Epith Cells 0-5 SEEN Ur Transition Epith Cell 0-5 SEEN Ur Renal Epithelial Cell 0-5 SEEN Urine Bacteria 1+ Hyaline Casts 0-5 SEEN Urine Mucus 0 SEEN 07/22/20 17:00 WBC RBC Hgb Hct MCV MCH MCHC RDW Std Deviation RDW Coeff of Sacha Plt Count MPV Immature Gran % (Auto) Neut % (Auto) Lymph % (Auto) [place] % (Auto) Eos % (Auto) Baso % (Auto) Absolute Neuts (auto) Absolute Lymphs (auto) Nucleated RBC % Differential Comment D-Dimer Quant (PE/DVT) Sodium Potassium Chloride Carbon Dioxide Anion Gap BUN Creatinine Estim Creat Clear Calc Est GFR (MDRD) Af Amer Est GFR (MDRD) Non-Af BUN/Creatinine Ratio Glucose Lactic Acid Calcium Total Bilirubin AST ALT Alkaline Phosphatase Troponin I 0.161 H Total Protein Albumin Globulin Albumin/Globulin Ratio Procalcitonin Urine Color Urine Clarity Urine pH Ur Specific [place] Urine Protein Urine Glucose (UA) Urine Ketones Urine Occult Blood Urine Nitrite Urine Bilirubin Urine Urobilinogen Ur Leukocyte Esterase Urine RBC Urine WBC Ur Squamous Epith Cells Ur Transition Epith Cell Ur Renal Epithelial Cell Urine Bacteria Hyaline Casts Urine Mucus - Rhythm Strip Rhythm Strip: Sinus Rhythm Rate: 95 - EKG Initial EKG Interpretation: Sinus Rhythm, RBBB, - - LVH Prior: Unchanged Follow-up EKG Interpretation: Sinus Rhythm, No Acute Injury Pattern, RBBB Prior: Unchanged - Medical Decision Making 79-year-old male presenting with weakness and falls. He states has been lightheaded for the last 2 days. He also reports that his son had to pick him up off the floor twice today. He denies hitting his head or LOC. He states he has had a chronic cough which is fairly unchanged with his generalized weakness. Given his symptoms of near syncopal event I did check an EKG which is interpreted by myself to have a sinus rhythm without acute ischemic change. There are no changes from previous. His delta EKG is interpreted by myself looks very similar. Chest x-ray is interpreted by myself and the radiologist shows no acute pulmonary findings. His lab work shows that he is slightly dehydrated however his troponin is also elevated at 0.136 with the second troponin at 0.161. He was given aspirin. Given his elevated troponin and the fact that he is a poor informant of his history I felt that the patient would benefit for admission to the hospital for monitoring. Patient was amenable to this plan. Patient is admitted to the hospital in stabilized condition. Impression: 1. Near syncope 2. Generalized weakness 3. Indeterminate troponins ED Disposition - Plan for ED Patient: Disposition: Acute Care Hospital [facility]
--- NOTE | 2020-07-22 12:39 | RAD_ITS ---
STUDY: X-RAY - LUMBAR SPINE REASON FOR EXAM: Male, 79 years old. Slid out of bed yesterday, back pain TECHNIQUE: AP and lateral view(s) of the lumbar spine were obtained. COMPARISON: None FINDINGS: Normal lumbar lordosis. There is no substantial scoliosis. There is a normal alignment of the vertebrae. There is no demonstrated acute compression fracture deformity. Narrowing of L3-L4 and L4-L5 disc spaces. Posterior degenerative spur at the level of L2-L3. Degenerative osteophyte formations at multiple levels. There is atherosclerotic calcification of the abdominal aorta without a demonstrated aneurysm. RAD/Lumbar Spine 2 or 3 Views IMPRESSION: 1. Degenerative changes of the spine, as detailed above. 2. No demonstrated acute fracture. Electronically Signed: Esteban Zaidi MD at 13:26 EST Tel , Service support ,
[2020-07-22 12:45] LABS: Absolute Lymphocyte Count 0.34 X10^3/uL (0.83-4.51); Absolute Neutrophil Count 8.7 X10^3/uL (2.0-7.7); Basophil# 0.02 X10^3/uL; Basophil% 0.2 % (0-1); Eosinophil# 0.01 X10^3/uL; Eosinophils% 0.1 % (0-5); Hematocrit 38.2 % (40-54); Hemoglobin 12.6 g/dL (13.0-16.5); Lymphocyte # 0.34 X10^3/ul (4.0); Lymphocyte % 3.5 % (19-41); Mean Corpuscular Hgb 30.2 pg (27.0-32.0); Mean Corpuscular Volume 91.6 fL (80-94); Mean Platelet Vol. 11.3 fl (6.2-12.0); Monocyte# 0.73 X10^3/uL; Monocyte% 7.4 % (0-10); NRBC Flagged by Analyzer 0 % (0-5); Neutrophil % 88.6 % (47-70); POSITIVE DIFFERENTIAL YES; Platelet Count 223 K/mm3 (150-450); RBC Distribution Width CV 14.1 % (11.6-14.6); RBC Distribution Width SD 46.7 fl (35.1-43.9); Red Blood Count 4.17 M/mm3 (4.6-6.2); White Blood Count 9.8 K/mm3 (4.4-11.0)
[2020-07-22 12:47] LABS: Mucous, Urine 0 SEEN /hpf (<or=2+)
[2020-07-22] MEDS: Ondansetron 4 MG/2 ML Vial IM (12:50)
[2020-07-22 12:53] LABS: Color, Urine Yellow (Yellow); Glucose, Dipstick Normal (Normal); Ketone-Dipstick 50 mg/dl (Negative); Leukocyte Esterase-Dipstick 25 /ul (Negative); Nitrite-Dipstick Negative (Negative); Occult Blood-Urine 25 /ul (Negative); Protein-Dipstick 100 mg/dl (Negative); Urine Bilirubin Dipstick Negative (Negative); Urine Clarity Clear (Clear); Urine Urobilinogen Normal (Normal)
[2020-07-22 13:00] LABS: Bacteria 1+ /hpf (None Seen); Hyaline Cast 0-5 SEEN /lpf (0-5); Red Blood Cells-Urine 0-5 SEEN /hpf (0-5); Renal Epithelial Cells 0-5 SEEN /hpf (0-5); Squamous Epithelial Cells - UA 0-5 SEEN /hpf (0-5); Transitional Epithelial - Ur 0-5 SEEN /hpf (0-5); White Blood Cells 0-5 SEEN /hpf (0-5)
[2020-07-22 13:01] LABS: ALB/GLOB Ratio 0.8 RATIO (0.9-2.4); AST(SGOT) 25 U/L (15-37); Alanine Aminotransfer ALT/SGPT 24 U/L (16-61); Albumin, Serum 3.2 g/dL (3.2-5.0); Alkaline Phosphatase 59 U/L (45-117); Anion Gap 6 (5-15); BUN 22 mg/dL (7-18); Calcium,Total 8.8 mg/dL (8.5-10.1); Chloride 104 mmol/L (98-107); EST Glomerular Filtration Rate 69 mL/min (>60); Est Glom Filt Rate - Afr Amer 83 mL/min (>60); Estimated Creatinine Clearance 60.75 ml/min; Globulin 4.1 g/dL (2.2-4.2); Glucose 221 mg/dL (74-106); Lactic Acid 1.7 mmol/L (0.4-1.9); Potassium 4.3 mmol/L (3.5-5.1); Protein, Total 7.3 g/dL (6.4-8.2); Sodium Level 136 mmol/L (136-145)
[2020-07-22 13:03] LABS: Differential Comment SCANNED; Differential Indicated SCAN CRITERIA MET
[2020-07-22 13:05] LABS: Procalcitonin 0.18 ng/mL (0.00-0.09)
[2020-07-22] MEDS: Aspirin 81 MG TAB.CHEW 324 MG PO (14:06)
[2020-07-22 14:12] LABS: D-Dimer Quantitative (DVT/PE) 2.68 FEU/ug/m (0.27-0.49)
--- NOTE | 2020-07-22 14:16 | CT_ITS ---
STUDY: CTA CHEST REASON FOR EXAM: Male, 79 years old. Cough, weakness. Hx MS, CABG, diabetes. RADIATION DOSAGE (If Supplied By Facility): CTDIvol = ( 13.75 ) mGy, DLP = ( 561.04 ) mGycm TECHNIQUE: The examination was performed with the intravenous administration of IV 100mL Isovue-370. Post-processing of the angiographic images was performed, with multiplanar reformation and 3D reconstruction. Individualized dose optimization techniques were used for this CT. COMPARISON: None. FINDINGS: Normal enhancement of the main pulmonary artery and right and left pulmonary arteries. Normal enhancement of the bilateral peripheral pulmonary arteries. There is no demonstrated pulmonary embolism. Normal thoracic aorta and visualized great vessels. There is no demonstrated aortic dissection. Normal heart and pericardium. There are calcifications of the coronary arteries. Normal mediastinum. Stable calcified mass 3.2 cm size in the right infrahilar region. Normal visualized trachea and bronchi. The lungs are hyper expanded, with flattening of the hemidiaphragms. Diffuse interstitial prominence is seen possible fibrosis or interstitial edema. Stable loculated thick walled chronic pleural effusion along the posterior and posterolateral aspects of the left hemithorax causing marked compressive atelectasis of the left lower lobe. Trace right pleural effusion and mild subsegmental atelectasis of the right lower lobe. There are degenerative changes of thoracic spine. Normal visualized upper abdomen. CT/CTA Chest W/WO Contrast IMPRESSION: Normal CTA chest examination, without a demonstrated pulmonary embolism or arterial dissection. Stable prominent loculated left pleural effusion with a thick wall causing marked compressive atelectasis of the left lung. Electronically Signed: Juancarlos Lynch MD at 15:35 EST , Service support ,
[2020-07-22] MEDS: TICAGRELOR 90 MG TABLET 180 MG PO (15:17)
--- NOTE | 2020-07-22 16:52 | EKG12_ITS ---
Test Reason : REPEAT Blood Pressure : / mmHG Vent. Rate : 080 BPM Atrial Rate : 080 BPM P-R Int : 258 ms QRS Dur : 134 ms QT Int : 434 ms P-R-T Axes : 079 -65 102 degrees QTc Int : 500 ms Sinus rhythm with 1st degree A-V block Left axis deviation Right bundle branch block Possible Lateral infarct , age undetermined Inferior infarct , age undetermined Abnormal ECG Confirmed by KRIS URENA, MARCO ([id number]), desk editor JUANITA JANE ([id number]) on 07/26/2020 10:18:42 AM Referred By: GUILLAUME Confirmed By:STEPHANIE PONCE MD
--- NOTE | 2020-07-22 17:51 | HP.PCM_ITS ---
Problem List (1) Elevation of cardiac enzymes Status: Acute (2) Near syncope Status: Acute (3) CAD (coronary artery disease) Status: Chronic Qualifiers: Coronary Disease-Associated Artery/Lesion type: unspecified vessel or lesion type [place] vs. transplanted heart: unspecified whether [place] or transplanted heart Associated angina: angina presence unspecified Qualified Code(s): I25.10 - Atherosclerotic heart disease of [place] coronary artery without angina pectoris (4) Pleural effusion on left Status: Chronic Comment: loculated per CT Chest 07/2019 thoracentesis 07/2019 (5) Atherosclerotic heart disease of [place] coronary artery without angina p ectoris Status: Chronic Qualifiers: [place] vs. transplanted heart: [place] heart Qualified Code(s): I25.10 - Atherosclerotic heart disease of [place] coronary artery without angina pectoris (6) History of non-ST elevation myocardial infarction (NSTEMI) Status: Resolved (7) Ischemic cardiomyopathy Status: Chronic (8) H/O coronary artery bypass surgery Status: Resolved (9) History of CVA (cerebrovascular accident) Status: Chronic (10) Carotid artery stenosis Status: Chronic Qualifiers: Laterality: right Qualified Code(s): I65.21 - Occlusion and stenosis of right carotid artery Comment: R CEA 2018 (11) Essential (primary) hypertension Status: Chronic (12) Peripheral vascular occlusive disease Status: Chronic Comment: RLE History of Present Illness Date of Admission: 07/22/20 Chief Complaint: Weakness, debility, recent fall The patient is a 79 y/o M w/ PMHx: CAD s/p CABG, Ischemic cardiomyopathy, Carotid disease s/p R CEA, Diabetes mellitus type II, HTN, LD, Hx CVA, PVD/PAOD, Hx L pleural space empyema who presents to the [facility] ED on 07/22/20 with history of fatigue, weakness, notable lightheadedness, recent fall with back discomfort following x 2 days with no recent fever, chills, nausea, emesis, chest pain, diarrhea, alteration to his sense of taste/smell with unchanged chronic cough per his report with no recent increased dyspnea associated. He notes he was seen earlier in the year secondary to L sided loculated effusion with drainage with no abx therapy administered at that time. He specifically denies any chest discomfort recently or previously in the last several weeks and denies any dyspnea or exertional dyspnea. Work-up in the ED included T 99.1, heart rate initially 104, BP 169/85, respiratory rate 20, 95% on room air, CBC with WC 9.8, hemoglobin 12.6, platelet 223 with left shift and lymphopenia, D-dimer 2.68, CMP with BUN/creatinine 22/1.10, glucose 221, lactic acid 1.7, total bilirubin 1.30, AST/ALT 25/24, alk phos 59, initial troponin 0.136 with repeat 0.161, procalcitonin 0.18, urinalysis with specific gravity 1.020, protein 100, ketone 50, occult blood 25, leukocyte esterase 25, urine WBC 0-5 with 1+ urine bacteria, blood culture x2 pending per ED, SARS rapid antigen testing negative, chest x-ray with blunting of the left costophrenic angle likely secondary to pleural thickening with no other active cardio pulmonary findings, plain film of the lumbar spine with degenerative changes with no demonstrated acute fracture, CTPA with no demonstrated pulmonary emboli or arterial dissection with a stable prominent loculated left pleural effusion with a thick wall causing marked compressive atelectasis of the left lung, EKG with sinus rhythm with right bundle branch block with no acute evidence of ischemia unchanged from previous. In the ED patient ministered aspirin 324 mg p.o. x1, normal saline and Zofran. Past Medical History Past Medical History (Chronic Problems): Chronic Problems (Last Reviewed 05/16/20 @ 13:29 by Seema REID, PA) CAD (coronary artery disease) (Chronic) Pleural effusion on left (Chronic) loculated per CT Chest 07/2019 thoracentesis 07/2019 Mass of right lung (Chronic) bronchoscopy 07/2019 Old inferior wall myocardial infarction (Chronic) Atherosclerotic heart disease of [place] coronary artery without angina pectoris (Chronic) Ischemic cardiomyopathy (Chronic) History of CVA (cerebrovascular accident) (Chronic 07/2017) Right bundle branch block (RBBB) (Chronic) Carotid artery stenosis (Chronic) R CEA 2018 Essential (primary) hypertension (Chronic) Claudication of both lower extremities (Chronic) Peripheral vascular occlusive disease (Chronic) RLE Medical History: Medical History (Last Reviewed 05/16/20 @ 13:29 by Seema REID, PA) Pleural effusion on left (Chronic) J90 loculated per CT Chest 07/2019 thoracentesis 07/2019 Elevated LFTs (Resolved) R79.89 Hepatic steatosis Mass of right lung (Chronic) R91.8 bronchoscopy 07/2019 Old inferior wall myocardial infarction (Chronic) I25.2 Atherosclerotic heart disease of [place] coronary artery without angina pectoris (Chronic) I25.10 History of non-ST elevation myocardial infarction (NSTEMI) (Resolved) Onset Date: 07/21/17 I25.2 Ischemic cardiomyopathy (Chronic) I25.5 History of CVA (cerebrovascular accident) (Chronic) Onset Date: 07/2017 Z86.73 Right bundle branch block (RBBB) (Chronic) I45.10 Carotid artery stenosis (Chronic) I65.29 R CEA 2018 Essential (primary) hypertension (Chronic) I10 Claudication of both lower extremities (Chronic) I73.9 Peripheral vascular occlusive disease (Chronic) I73.9 RLE DM2 (diabetes mellitus, type 2) E11.9 Hepatic steatosis K76.0 Hydrocele, right N43.3 Pleural effusion (Resolved) J90 Empyema of left pleural space (Ruled-out) J86.9 Allergies Rgchdyx-Rhl-Uhw Reductase Inhibitor Adverse Reaction (Severe, Verified 07/22/20 12:09) mylagias lisinopril Adverse Reaction (Verified 07/22/20 12:09) cough Home Medications: Ambulatory Orders Medication Instructions Recorded insulin human U-100 NPH-regulr 12 unit SC .COMPLEX 11/18/17 70-30 mix 100 unit/mL subcutaneous susp ascorbic acid (vitamin C) 1,000 mg 1 g PO DAILY tab 11/15/19 tablet aspirin 81 mg tablet,delayed 81 mg PO DAILY 11/15/19 release chromium picolinate 1,000 mcg 1,000 mcg PO DAILY 11/15/19 tablet coenzyme Q10 200 mg capsule 200 mg PO DAILY 11/15/19 dandelion 500 mg capsule 500 mg PO DAILY cap 11/15/19 grape seed extract 50 mg capsule 50 mg PO DAILY cap 11/15/19 pantoprazole 40 mg tablet,delayed 40 mg PO DAILY tab 11/15/19 release losartan 25 mg tablet 25 mg PO DAILY #30 tab 05/16/20 montelukast 10 mg tablet 10 mg PO DAILY 05/16/20 Surgical History: Surgical History (Last Reviewed 05/16/20 @ 13:29 by Seema Yanes PA, PA) H/O coronary artery bypass surgery (Resolved) Onset Date: 08/04/17 Z95.1 History of bronchoscopy Onset Date: 08/25/19 Z98.890 LUNG, RIGHT LOWER LOBE, BIOPSY - FEATURES SUGGEST ORGANIZING INFLAMMATION. SEE COMMENT. 08/25/2019 COMMENT; There is no evidence of malignancy. Immunohistochemical stain for S100 is negative for Langerhans cells. Special stains for AFB and GMS were negative for fungal elements and mycobacteria, respectively. History of right-sided carotid endarterectomy Onset Date: 09/24/17 Z98.890 09/24/[address] Reyes @ [facility] History of thoracentesis Onset Date: 07/2019 Z98.890 left Surgical History: coronary bypass surgery, - - CABG x3, right CEA. Psychiatric History: No pertinent psych hx Lives: Alone Smoking Status: Never smoker Tobacco Use: Non-smoker Alcohol: None Drugs: None - *Family History Paternal History Items: Heart Disease Maternal History Items: - - Patient denies any market maternal family history including heart disease, diabetes, cancer. Review of Systems Constitutional: Reports: Anorexia, Malaise, Weakness, Fatigue. Denies: Chills, Fever, Weight Change HEENT: Denies: Head Aches, Sinus Congestion, Sinus Drainage Cardiovascular: Denies: Chest Pain, Palpitations Respiratory: Reports: Cough. Denies: Shortness of Breath, Shortness of breath at rest, Shortness of breath upon exertion, Sputum production, Wheezing Gastrointestinal: Denies: Abdominal Pain, Nausea, Vomiting Genitourinary: Denies: Dysuria Musculoskeletal: Reports: Back Pain, Joint Pain. Denies: Joint Tenderness Skin: Denies: Rash, Wounds Neurological: Denies: Numbness, Tingling, Focal weakness Psychiatric: Denies: Anxiety, Depression, Homicidal Ideations, Suicidal Idea tions Hematologic/ Lymphatic: Reports: Easy Bruising, Easy Bleeding VTE Information - Inpt Only VTE Present on Admission: No VTE Mechan Device Prophylaxis: SCD's VTE Pharm Prophylaxis ordered?: Yes Subjective: Patient seated upright in ED bed, fatigued appearing, no acute distress, denies any current chest discomfort. Objective: Physical Examination: General: awake, alert, oriented x 3, hard of hearing, remains cooperative, sea hung upright in the ED bed, fatigued appearing, denies any chest discomfort. Skin: normal color, turgor, no icterus, cyanosis. HEENT: AT/NC, EOMI, PERRLA, dry MM, no carotid bruits or JVD noted. Lungs: Diminished breath sounds, greater bases, moderate effort, no rales, ronchi or wheezing. Heart: Regular rate and rhythm; no gallop, rub audible. Abdomen: soft, NTTP, ND, normal BS, no HSM. Extremities: no cyanosis, clubbing, or edema. Neurological: patient awake, alert, oriented as noted; cognitive function suspect near baseline intact; pupils equally reactive to light and accomodation; cranial nerves II-XII grossly normal, moving all 4 extremities, strength moderately to severely globally decreased. Psychiatric: affect appears fatigued otherwise normal, no acute evidence of depressive or anxiety feelings. - Physical Exam Vitals/I&O's: Vital Signs Temp Pulse Resp BP Pulse Ox 99.1 F 81 25 H 135/76 H 97 07/22/20 12:03 07/22/20 17:34 07/22/20 17:34 07/22/20 17:34 07/22/20 17:34 Oxygen Delivery Method Room Air Weight: 186 lb 4.65 oz Body Mass Index (BMI) 25.2 Intake and Output for Last 24 Hours 07/20/20 07/21/20 07/22/20 23:59 23:59 23:59 Intake Total 500 / 500 Balance 500 / 500 Microbiology Past 72 Hours 07/22/20 12:39 Mucosa - Nose SARS-CoV-2 Antigen (Rapid) - Final Laboratory Results 07/22/20 12:23: WBC 9.8, RBC 4.17 L, Hgb 12.6 L, Hct 38.2 L, MCV 91.6, MCH 30.2, MCHC 33.0, RDW Std Deviation 46.7 H, RDW Coeff of Sacha 14.1, Plt Count 223, MPV 11.3, Immature Gran % (Auto) 0.200, Neut % (Auto) 88.6 H, Lymph % (Auto) 3.5 L, [place] % (Auto) 7.4, Eos % (Auto) 0.1, Baso % (Auto) 0.2, Absolute Neuts (auto) 8.7 H, Absolute Lymphs (auto) 0.34 L, Nucleated RBC % 0, Differential Comment SCANNED 07/22/20 12:23: Sodium 136, Potassium 4.3, Chloride 104, Carbon Dioxide 26.0, Anion Gap 6, BUN 22 H, Creatinine 1.10, Estim Creat Clear Calc 60.75, Est GFR (MDRD) Af Amer 83, Est GFR (MDRD) Non-Af 69, BUN/Creatinine Ratio 20.0, Glucose 221 H, Calcium 8.8, Total Bilirubin 1.30 H, AST 25, ALT 24, Alkaline Phosphatase 59, Troponin I 0.136 H, Total Protein 7.3, Albumin 3.2, Globulin 4.1, Albumin/Globulin Ratio 0.8 L 07/22/20 12:23: Lactic Acid 1.7 07/22/20 12:23: Procalcitonin 0.18 H 07/22/20 12:23: D-Dimer Quant (PE/DVT) 2.68 H* 07/22/20 12:40: Urine Color Yellow, Urine Clarity Clear, Urine pH 5.0, Ur Specific [place] 1.020, Urine Protein 100 H, Urine Glucose (UA) Normal, Urine Ketones 50 H, Urine Occult Blood 25 H, Urine Nitrite Negative, Urine Bilirubin Negative, Urine Urobilinogen Normal, Ur Leukocyte Esterase 25 H, Urine RBC 0-5 SEEN, Urine WBC 0-5 SEEN, Ur Squamous Epith Cells 0-5 SEEN, Ur Transition Epith Cell 0-5 SEEN, Ur Renal Epithelial Cell 0-5 SEEN, Urine Bacteria 1+, Hyaline Casts 0-5 SEEN, Urine Mucus 0 SEEN 07/22/20 17:00: Troponin I 0.161 H Assessment/Plan All Active Problems (Last Reviewed 05/16/20 @ 13:29 by Seema Yanes PA, PA) Elevation of cardiac enzymes (Acute) Near syncope (Acute) Elevated LFTs (Resolved) History of non-ST elevation myocardial infarction (NSTEMI) (Resolved 07/21/17) H/O coronary artery bypass surgery (Resolved 08/04/17) Pleural effusion (Resolved) Empyema of left pleural space (Ruled-out) The patient is a 79 y/o M w/ PMHx: CAD s/p CABG, Ischemic cardiomyopathy, Carotid disease s/p R CEA, Diabetes mellitus type II, HTN, LD, Hx CVA, PVD/PAOD, Hx L pleural space empyema who presents to the [facility] ED on 07/22/20 with history of fatigue, weakness, notable lightheadedness, recent fall with back discomfort following x 2 days with no recent fever, chills, nausea, emesis, chest pain, diarrhea, alteration to his sense of taste/smell with unchanged chronic cough per his report with no recent increased dyspnea associated. 1. Acute Near Syncope with Indeterminant Cardiac Enzyme, ? early NSTEMI: EKG in ED w/ sinus rhythm with right bundle branch block unchanged from prior with no acute evidence of ischemia, chest x-ray with blunting of the left costophrenic angle likely secondary to pleural thickening with no other active cardio pulmonary findings, plain film of the lumbar spine with degenerative changes with no demonstrated acute fracture, CTPA with no demonstrated pulmonary emboli or arterial dissection with a stable prominent loculated left pleural effusion with a thick wall causing marked compressive atelectasis of the left lung. Will admit to PCU, maintain on a monitored bed, continue serial cardiac enzymes and EKGs. ECHO requested. Obtain orthostatic VS. Judiciously hydrate. Obtain magnesium level upon admission. Will start therapeutic lovenox in case troponin further rises, will request Cardiology consultation given ongoing rise. Continue medical management w/ asa, add BB, noted statin allergy w/ AM FLP. Cardiology consulted given cardiac history and increasing enzyme. Maintain NPO after midnight in case of intervention versus stress decision. ASA, NG, morphine. 2. Chronic left-sided effusion, loculated: Patient previously seen for this, evaluated at [facility], status post prior thoracentesis and notes that he was not treated with any antibiotics at that time but not the best historian, records requested. Patient is afebrile and CBC with no marked WBC elevation, continue to monitor and if further concerning needs may require repeat assessment. 3. CAD with Ischemic cardiomyopathy: Status post CABG previously, will continue aspirin as noted, not on statin secondary to allergy, adding low-dose beta- kam, continue losartan, continue treatment as noted above #1. 4. Carotid disease, POD: Status post right CEA previously, significant vasculopath, will continue aspirin, not on statin secondary to allergy, adjusting BP regimen as noted, will obtain hemoglobin A1c given significant blood sugar elevation, continue diabetic regimen pending this result. 5. Diabetes mellitus type II: Hold oral home regimen, continue home insulin regimen, hemoglobin A1c pending and suspect will need further regimen adjustments, ADA diet until n.p.o. status, accu checks w/ ISS. 6. History CVA: We will continue aspirin, not on statin secondary to allergy, continue hypertensive and diabetic regimen with adjustments as noted. 7. Hypertension: Continue home regimen including losartan, adding low-dose beta-kam, PRN hydralazine. 8. Hyperlipidemia: Noted statin allergy, FLP in AM. 9. GERD: We will continue PPI. 10. DVT Prophylaxis: SCDs, lovenox. 11. CODE status: Patient leaves that his son is his healthcare power of workers compensation attorney but denies having living will in place. Encouraged him to discuss these items with case management/social work to assure these items are set up appropriately. Discussed CODE status at length including difference between FULL code, DNR-CCA and DNR-CC status. Following discussions about the differences in these status, requested Full Code status. Advanced Care Planning Face to Face Time: 16 minutes. Inpatient E&M: 83595 Init Hosp L3 Procedures: 30609 Advncd Care Plan 30 Min
--- NOTE | 2020-07-22 18:37 | EKG12_ITS ---
Test Reason : NON-STEMI Blood Pressure : / mmHG Vent. Rate : 091 BPM Atrial Rate : 091 BPM P-R Int : 276 ms QRS Dur : 138 ms QT Int : 404 ms P-R-T Axes : 070 -61 102 degrees QTc Int : 496 ms Sinus rhythm with 1st degree A-V block with Premature atrial complexes Left axis deviation Right bundle branch block Left ventricular hypertrophy with repolarization abnormality Lateral infarct , age undetermined Inferior infarct , age undetermined Abnormal ECG When compared with ECG of 22-JUL-2020 17:06, MANUAL COMPARISON REQUIRED, DATA IS UNCONFIRMED Confirmed by KRIS URENA, MARCO ([id number]), assistant editor JUANITA JANE ([id number]) on 07/26/2020 11:58:39 AM Referred By: DR FERREIRA Confirmed By:STEPHANIE PONCE MD
--- NOTE | 2020-07-22 18:37 | ECHOCS_ITS ---
Reason For Study: CAD/ASHD, NSTEMI Procedure This was a 2D Doppler, Color Flow transthoracic echocardiogram. Very technically difficult study, patient unable to stay on left side for testing even with wedges. Contrast injection was performed. Exam performed in department. Left Ventricle Normal LV size. The estimated ejection fraction is 25-30 %. Stage 1 diastolic dysfunction. Hypokinesis of the inferior wall, lateral wall and septum. Right Ventricle Normal RV size. Normal systolic function. Atria The left atrium is mildly enlarged. Normal right atrium. No doppler evidence for ASD. Mitral Valve There is no mitral valve stenosis. Trivial mitral valve insufficiency. Tricuspid Valve There is no tricuspid stenosis. Trivial tricuspid valve insufficiency. Unable to estimate RV systolic pressure due to insufficient tricuspid regurgitant envelope. Aortic Valve Aortic sclerosis, no stenosis. No aortic valve insufficiency. Pulmonic Valve There is no pulmonic valvular stenosis. Trivial pulmonic valve insufficiency. Great Vessels Normal aortic root. Pericardium/Pleural No pericardial effusion. Medication Diluted definity 4ml given slow IV push to enhance endocardial definition. MMode/2D Measurements & Calculations LVIDd: 5.5 cm IVSd: 1.2 cm LA dimension: 4.3 cm LVIDs: 4.8 cm LVPWd: 1.3 cm FS: 11.7 % LAV(MOD-sp4): 52.1 ml LVAd ap4: 45.9 cm2 SV(MOD-sp4): 52.9 ml EDV(MOD-sp4): 184.6 ml EDV(sp4-el): 195.3 ml LVAs ap4: 35.1 cm2 ESV(MOD-sp4): 131.7 ml ESV(sp4-el): 134.5 ml EF(MOD-sp4): 28.7 % EF(sp4-el): 31.1 % SV(sp4-el): 60.8 ml LA A4 area: 19.8 cm2 RA A4 area: 17.8 cm2 Time Measurements MV dec time: 0.24 sec Doppler Measurements & Calculations MV E max dre: 87.0 cm/sec Lat Peak E' Dre: 6.8 cm/sec Med Peak E' Dre: 2.3 cm/sec MV A max dre: 65.9 cm/sec E/E' lat: 12.7 E/E' med: 38.0 MV E/A: 1.3 Ao V2 max: 124.6 cm/sec LV V1 max: 95.6 cm/sec MR max dre: 501.3 cm/sec Ao max P.2 mmHg LV V1 max P.7 mmHg MR max P.5 mmHg PA V2 max: 83.8 cm/sec Interpretation Summary The estimated ejection fraction is 25-30 %. Stage 1 diastolic dysfunction. Hypokinesis of the inferior wall, lateral wall and septum Trivial mitral valve insufficiency. Ordering Physician: Chloe Marshall Referring Physician: Karen Lowe Performed By: Julito Mccarty RCS
[2020-07-22 19:00] LABS: Magnesium 1.4 mg/dL (1.6-2.6)
[2020-07-22] MEDS: Enoxaparin 100 MG/ML Syringe 90 MG SC (20:16)
[2020-07-22] MEDS: 0.9% Normal Saline 1,000 ML 100 ML IV (20:17)
[2020-07-22] MEDS: Insulin Lispro 100 UNIT/ML INSULN.PEN SC (20:31)
[2020-07-22] MEDS: 0.9% Saline Lock 10 ML Syringe IV (20:32)
[2020-07-22 21:25] LABS: Bedside Glucose 202 mg/dL (70-110)
--- NOTE | 2020-07-22 21:37 | PCM.CONS.C ---
Problem List (1) Elevation of cardiac enzymes Status: Acute (2) CAD (coronary artery disease) Status: Chronic Qualifiers: Coronary Disease-Associated Artery/Lesion type: unspecified vessel or lesion type [place] vs. 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 Due to the worsening in his symptoms, the patient presented inpatient for further evaluation. During the work-up for the patient presyncopal episode, the patient was found to have elevated troponin level. For this reason, cardiology was consulted for further evaluation. Further discussion with the patient reviewed that the patient is not complaining of any typical anginal symptoms. Patient reported he ran out of his co-Q10 vitamins recently. He thinks this is the reason why he is feeling on this. Other than this, the patient said he has been taking all his medication as instructed. The patient does admit to feeling more fatigue lately. The patient denies any recent exposure to COVID-19, fever, out of the ordinary shortness of breath, recent travel. Past Medical History Allergies/Adverse Reactions: Allergies Pqkykaq-Cag-Etu Reductase Inhibitor Adverse Reaction (Severe, Verified 07/22/20 12:09) mylagias lisinopril Adverse Reaction (Verified 07/22/20 12:09) cough Home Medications: Ambulatory Orders Medication Instructions Recorded insulin human U-100 NPH-regulr 12 unit SC .COMPLEX 11/18/17 70-30 mix 100 unit/mL subcutaneous susp ascorbic acid (vitamin C) 1,000 mg 1 g PO DAILY tab 11/15/19 tablet aspirin 81 mg tablet,delayed 81 mg PO DAILY 11/15/19 release chromium picolinate 1,000 mcg 1,000 mcg PO DAILY 11/15/19 tablet coenzyme Q10 200 mg capsule 200 mg PO DAILY 11/15/19 dandelion 500 mg capsule 500 mg PO DAILY cap 11/15/19 grape seed extract 50 mg capsule 50 mg PO DAILY cap 11/15/19 pantoprazole 40 mg tablet,delayed 40 mg PO DAILY tab 11/15/19 release losartan 25 mg tablet 25 mg PO DAILY #30 tab 05/16/20 montelukast 10 mg tablet 10 mg PO DAILY 05/16/20 Past Medical History (Chronic Problems): Chronic Problems (Last Reviewed 05/16/20 @ 13:29 by Seema Yanes PA, PA) CAD (coronary artery disease) (Chronic) Pleural effusion on left (Chronic) loculated per CT Chest 07/2019 thoracentesis 07/2019 Mass of right lung (Chronic) bronchoscopy 07/2019 Old inferior wall myocardial infarction (Chronic) Atherosclerotic heart disease of [place] coronary artery without angina pectoris (Chronic) Ischemic cardiomyopathy (Chronic) History of CVA (cerebrovascular accident) (Chronic 07/2017) Right bundle branch block (RBBB) (Chronic) Carotid artery stenosis (Chronic) R CEA 2017 Essential (primary) hypertension (Chronic) Claudication of both lower extremities (Chronic) Peripheral vascular occlusive disease (Chronic) RLE Surgical History: coronary bypass surgery, - - CABG x3, right CEA. Psychiatric History: No pertinent psych hx - *Family History Paternal History Items: Heart Disease Maternal History Items: - - Patient denies any [place] maternal family history including heart disease, diabetes, cancer. Lives: Alone Smoking Status: Never smoker Tobacco Use: Non-smoker Alcohol: None Drugs: None Objective: Vital Signs Temp Pulse Resp BP Pulse Ox 98.1 F 95 18 156/93 H 95 07/22/20 18:41 07/22/20 18:41 07/22/20 19:15 07/22/20 18:41 07/22/20 19:15 Oxygen Delivery Method Room Air Weight: 181 lb 11.2 oz Body Mass Index (BMI) 24.6 Intake and Output for Last 24 Hours 07/20/20 07/21/20 07/22/20 23:59 23:59 23:59 Intake Total 561.67 / 561.67 Balance 561.67 / 561.67 The 14 point review of system was done. Pertinent positive are mentioned in HPI. Physical Exam GENERAL: This is a nourished who is appropriate and articulate at the time of evaluation. VITAL SIGNS: please see collected data HEENT: Exam is benign. Normocephalic and atraumatic. Oral mucosa is pink and moist. NECK: Jugular venous pulsations are normal. Carotid upstrokes are palpable bilaterally. There is no audible bruit. LUNGS: Clear to Auscultation Bilaterally, No rales, rhonchi or wheezes CARDIAC: Regular rhythm and rate. S1 and S2 with JAYDEN at apex, no rub, or gallop appreciated. The point of maximal impulse is normal. ABDOMEN: Obese, soft with active bowel sounds. No organomegaly. No audible bruit. Nontender To Palpation EXTREMITIES: Femoral pulses were deferred. No Lower extremities edema. Pulse +2/4 OMM: Patient was examined in supine position; there was no acute tissue changes other stated in Lymphs: No lymphadenopathy Neuro: CN 2-12 are grossly intact, no focal neurological deficit. Psych: No anxiety 07/22/20 12:23: WBC 9.8, RBC 4.17 L, Hgb 12.6 L, Hct 38.2 L, MCV 91.6, MCH 30.2, MCHC 33.0, Plt Count 223, MPV 11.3, Immature Gran % (Auto) 0.200, Neut % (Auto) 88.6 H, Lymph % (Auto) 3.5 L, [place] % (Auto) 7.4, Eos % (Auto) 0.1, Baso % (Auto) 0.2, Absolute Neuts (auto) 8.7 H, Nucleated RBC % 0 07/22/20 12:23: Sodium 136, Potassium 4.3, Chloride 104, Carbon Dioxide 26.0, Anion Gap 6, BUN 22 H, Creatinine 1.10, Est GFR (MDRD) Af Amer 83, Est GFR (MDRD) Non-Af 69, BUN/Creatinine Ratio 20.0, Glucose 221 H, Calcium 8.8, Total Bilirubin 1.30 H, Troponin I 0.136 H 07/22/20 12:23: Lactic Acid 1.7 07/22/20 12:23: D-Dimer Quant (PE/DVT) 2.68 H* 07/22/20 12:40: Urine Color Yellow, Urine Clarity Clear, Urine pH 5.0, Ur Specific [place] 1.020, Urine Protein 100 H, Urine Glucose (UA) Normal, Urine Ketones 50 H, Urine Occult Blood 25 H, Urine Nitrite Negative, Urine Bilirubin Negative, Urine Urobilinogen Normal, Ur Leukocyte Esterase 25 H, Urine RBC 0-5 SEEN, Urine WBC 0-5 SEEN 07/22/20 17:00: Troponin I 0.161 H 07/22/20 : Magnesium 1.4 L Rhythm: EKG: ECHO: Stress Test: Cardiac Cath: PCI: CT Surgery: Holter monitor: EPS: PPM: CXR: Chest CT Scan: Assessment/Plan Impression and recommendation + NSTEMI -Likely multifactorial. ECG shows sinus rhythm with right bundle branch block. There is no acute ischemic changes. The patient is not having any typical anginal symptoms. The patient received IV fluid, and he is feeling better. The patient procalcitonin is elevated, but then we are not sure of the source of infection. The patient does have chronic lung disease with empyema. -The patient was resumed on his aspirin and was started on full dose Lovenox. Depending on how the troponin trends, will determine whether the patient will need a stress test versus a coronary angiogram for further evaluation. Meanwhile, we recommend continue with the optimizing the medical therapy. -Echo is ordered to evaluate for LV and structure + Coronary disease with history of CABG likely LEIGH to the LAD, SVG to the OM and to the RCA possibly to the diagonal -The patient has a cath done in June 2017 which showed multivessel coronary disease and then he underwent CABG -We recommend resume home medications -See recommendation above + History of carotid artery disease status post right CEA -The patient may need carotid ultrasound to rule out progressive disease + Hypertension -Monitor for now + Hyperlipidemia -The patient has allergy to statin + Diabetes type 2 -We recommend close blood sugar control. +Chronic left-sided effusion with history of empyema -Primary team is managing
[2020-07-23] VITALS (13 sets, daily range): BP systolic 132–152; BP diastolic 65–86; PULSE 75–109; RESP 16–18; TEMP 36.4–37.2; O2SAT 94–99
[2020-07-23] MEDS: Aspirin 81 MG TAB.CHEW PO (05:46)
[2020-07-23] MEDS: Losartan Potassium 25 MG Tablet PO (05:46)
--- NOTE | 2020-07-23 05:55 | EKG12_ITS ---
Test Reason : MORNING EKG Blood Pressure : / mmHG Vent. Rate : 095 BPM Atrial Rate : 095 BPM P-R Int : 250 ms QRS Dur : 134 ms QT Int : 388 ms P-R-T Axes : 044 -61 099 degrees QTc Int : 487 ms Sinus rhythm with 1st degree A-V block with Premature atrial complexes Left axis deviation Right bundle branch block Left ventricular hypertrophy with repolarization abnormality Lateral infarct , age undetermined Inferior infarct , age undetermined Abnormal ECG When compared with ECG of 22-JUL-2020 19:23, MANUAL COMPARISON REQUIRED, DATA IS UNCONFIRMED Confirmed by KRIS URENA, MARCO ([id number]), state editor JUANITA JANE ([id number]) on 07/30/2020 9:37:02 AM Referred By: HANNA Confirmed By:STEPHANIE PONCE MD
[2020-07-23 06:14] LABS: Absolute Lymphocyte Count 0.54 X10^3/uL (0.83-4.51); Absolute Neutrophil Count 8.8 X10^3/uL (2.0-7.7); Basophil# 0.02 X10^3/uL; Basophil% 0.2 % (0-1); Eosinophil# 0.04 X10^3/uL; Eosinophils% 0.4 % (0-5); Hematocrit 36.8 % (40-54); Lymphocyte # 0.54 X10^3/ul (4.0); Lymphocyte % 5.2 % (19-41); Mean Corp Hgb Conc 32.6 g/dL (32-36); Mean Corpuscular Hgb 29.6 pg (27.0-32.0); Mean Corpuscular Volume 90.6 fL (80-94); Mean Platelet Vol. 11.4 fl (6.2-12.0); Monocyte# 1.07 X10^3/uL; Monocyte% 10.2 % (0-10); NRBC Flagged by Analyzer 0 % (0-5); Neutrophil # 8.75 X10^3/uL (2.7-7.7); Neutrophil % 83.7 % (47-70); POSITIVE DIFFERENTIAL YES; Platelet Count 215 K/mm3 (150-450); RBC Distribution Width CV 14.1 % (11.6-14.6); RBC Distribution Width SD 47.3 fl (35.1-43.9); Red Blood Count 4.06 M/mm3 (4.6-6.2); White Blood Count 10.5 K/mm3 (4.4-11.0)
[2020-07-23 06:18] LABS: Differential Indicated SCAN CRITERIA MET
[2020-07-23 06:41] LABS: Bedside Glucose 170 mg/dL (70-110)
[2020-07-23 06:43] LABS: ALB/GLOB Ratio 0.7 RATIO (0.9-2.4); AST(SGOT) 35 U/L (15-37); Alanine Aminotransfer ALT/SGPT 24 U/L (16-61); Albumin, Serum 2.8 g/dL (3.2-5.0); Alkaline Phosphatase 54 U/L (45-117); Anion Gap 7 (5-15); BUN 19 mg/dL (7-18); BUN/Creat Ratio 19.6 RATIO (10-20); Calcium,Total 8.2 mg/dL (8.5-10.1); Chloride 104 mmol/L (98-107); Cholesterol 123 mg/dL (200); Creatinine, Serum 0.97 mg/dL (0.70-1.30); EST Glomerular Filtration Rate 80 mL/min (>60); Est Glom Filt Rate - Afr Amer 96 mL/min (>60); Estimated Creatinine Clearance 68.89 ml/min; Globulin 3.8 g/dL (2.2-4.2); Glucose 171 mg/dL (74-106); High Density Lipoprotein 39 mg/dL; Potassium 3.9 mmol/L (3.5-5.1); Protein, Total 6.6 g/dL (6.4-8.2); Sodium Level 137 mmol/L (136-145); Triglycerides 83 mg/dL; Very Low Density Lipoprotein 17 mg/dL (5-40)
[2020-07-23] MEDS: 0.9% Normal Saline 1,000 ML 100 ML IV ×3 (06:57→20:22)
[2020-07-23 09:32] LABS: Magnesium 1.6 mg/dL (1.6-2.6)
[2020-07-23] MEDS: Metoprolol(XL)Succ 25 MG Tablet 12.5 MG PO (10:23)
[2020-07-23] MEDS: Montelukast 10 MG Tablet PO (10:24)
[2020-07-23] MEDS: Pantoprazole Sodium 40 MG Tablet PO (10:24)
[2020-07-23] MEDS: Insulin Lispro 100 UNIT/ML INSULN.PEN SC (11:02)
[2020-07-23 11:10] LABS: Bedside Glucose 247 mg/dL (70-110)
--- NOTE | 2020-07-23 11:52 | STRESSREP_ITS ---
Stress Test Report Date: 07/23/2020 Procedure: Pharmacologic stress nuclear imaging study Indications: Near syncope Consent: Per the patient Procedure: The patient underwent pharmacologic (Regadenoson) evaluation with a peak heart rate of 96 beats per minute (67% predicted maximal heart rate) and a peak blood pressure of 130/66 mmHg. The baseline ECG demonstrated normal sinus rhythm, right bundle branch block, occasional PVCs, occasional PACs. EKG during lexiscan infusion revealed no significant ischemic changes. EKG post infusion revealed no significant ischemic changes [There were no significant cardiac dysrhythmias pretest, during pharmacologic infusion, or recovery]. [There was no complaint of chest discomfort during pharmacologic infusion or recovery]. The examination was discontinued secondary to completion of protocol. Impression: 1. Lexiscan stress test test is negative for Lexiscan infusion induced EKG changes of ischemia. 2. Lexiscan stress test test is negative for Lexiscan infusion induced chest pain. 3. Results of the nuclear portion of the test is as below Myocardial perfusion imaging study: Technique: The patient was injected with 11.9 millicuries of technetium 99m Cardiolite and subsequently rest SPECT Cardiolite nuclear imaging was obtained in the horizontal long, vertical long, and short axis views. The patient underwent pharmacologic (Regadenoson) evaluation. Please see above for details. The patient was injected with 33.3 millicuries of technetium 99m Cardiolite and subsequently stress SPECT Cardiolite nuclear imaging was obtained in the horizontal long, vertical long, and short axis views. A gated Cardiolite study at peak stress was obtained. Interpretation: Rest and stress SPECT Cardiolite nuclear imaging status post realignment, normalization, and attenuation correction demonstrate absent myocardial radioisotope uptake in the inferior wall on both the rest and stress images and moderately decreased radioisotope uptake in the inferolateral wall on both the rest and stress images. There is no significant reversibility suggestive of ischemia. These findings are suggestive of prior inferior and inferolateral myocardial infarction. Gated images reveal severe hypokinesis of the inferior wall and lateral wall, moderate hypokinesis of the septum. The reported LVEF is 25%. Impression: 1. There is no evidence of significant ischemia. Evidence of prior inferior and inferolateral myocardial infarction. 2. Estimated ejection fraction is 25%. This note was generated with [employer] software. It may contain incorrect words, spelling, and punctuation that were not noted in checking the note before signing.
--- NOTE | 2020-07-23 13:02 | PN_ITS ---
<John Sierra - Last Filed: 07/23/20 13:02> Patient Problems: Active and Suspected Problems (Last Reviewed 05/16/20 @ 13:29 by Seema REID, PA) Elevation of cardiac enzymes (Acute) Near syncope (Acute) Reason for Visit: Pt denies chest pain, pressure, tightness, heaviness. He denies lightheaded or dizziness. He has no SOB. He states he has just been very weak. He never lost consciousness. He denies LH leading to his collapse. He states that he felt overall extremely weak, could not lift his legs to get in bed, felt too weak to continue sitting on the bed, so he slid down on to the floor where he then called for help. Vitals/I&O's: Vital Signs Temp Pulse Resp BP Pulse Ox 97.6 F L 86 18 132/65 H 98 07/23/20 10:22 07/23/20 10:23 07/23/20 10:22 07/23/20 10:23 07/23/20 10:22 Oxygen Delivery Method Room Air Weight: 181 lb 3.52 oz Body Mass Index (BMI) 24.6 Orthostatic Vital Signs Start: 07/22/20 22:54 Freq: q24h Status: Active Protocol: Activity Type Activity Date Activity User E-Sign Co-Sign Detail Recorded Client Recorded Date Recorded By Document 07/23/20 02:30 AML [id number] 07/23/20 04:18 AML 07/23/20 02:30 Orthostatic Vitals Sitting -Blood Pressure (90/60-120/80) 147/83 H -Extremity Use Right Arm -Pulse Rate (60-100) 89 Lying -Blood Pressure (90/60-120/80) 152/77 H -Extremity Use Right Arm -Pulse Rate (60-100) 79 Intake and Output for Last 24 Hours 07/21/20 07/22/20 07/23/20 23:59 23:59 23:59 Intake Total 660.47 / 900.47 1643.33 / 1643.33 Output Total 600 / 600 Balance 660.47 / 700.47 1043.33 / 1043.33 General: Alert, Oriented x3, Cooperative, - - masked facies HEENT: Atraumatic, PERRLA, EOMI, Normocephalic Neck: Supple, No JVD, Negative Carotid Bruits Lungs: Clear to auscultation, Normal air movement Cardiovascular: No murmurs, Irregular Rate Abdomen: Bowel Sounds Present, Soft, Non Tender Extremities: No edema, Capillary Refill Less than 3 Seconds Skin: No rashes, No breakdown Musculoskeletal: No Tenderness to Palpation of Joints or Extremities Neurological: Cranial nerves II-XII grossly intact, - - difficulty tracking with eyes, particularly upward, delayed responses Psych/Mental Status: Normal Affect, Appropriate, Alert and oriented to time, place, person, mood and affect Microbiology Past 72 Hours 07/22/20 19:25 Mucosa - Nasopharyngeal Respiratory Panel (PCR) - Final 07/22/20 12:39 Mucosa - Nose SARS-CoV-2 Antigen (Rapid) - Final Laboratory Results 07/22/20 12:23: WBC 9.8, RBC 4.17 L, Hgb 12.6 L, Hct 38.2 L, MCV 91.6, MCH 30.2, MCHC 33.0, RDW Std Deviation 46.7 H, RDW Coeff of Sacha 14.1, Plt Count 223, MPV 11.3, Immature Gran % (Auto) 0.200, Neut % (Auto) 88.6 H, Lymph % (Auto) 3.5 L, [place] % (Auto) 7.4, Eos % (Auto) 0.1, Baso % (Auto) 0.2, Absolute Neuts (auto) 8.7 H, Absolute Lymphs (auto) 0.34 L, Nucleated RBC % 0, Differential Comment SCANNED 07/22/20 12:23: Procalcitonin 0.18 H 07/22/20 12:23: D-Dimer Quant (PE/DVT) 2.68 H* 07/22/20 17:00: Troponin I 0.161 H 07/22/20 20:14: POC Glucose 202 H 07/22/20 23:14: Troponin I 0.153 H 07/22/20 : Magnesium 1.4 L 07/23/20 05:20: WBC 10.5, RBC 4.06 L, Hgb 12.0 L, Hct 36.8 L, MCV 90.6, MCH 29.6, MCHC 32.6, RDW Std Deviation 47.3 H, RDW Coeff of Sacha 14.1, Plt Count 215, MPV 11.4, Immature Gran % (Auto) 0.300, Neut % (Auto) 83.7 H, Lymph % (Auto) 5.2 L, [place] % (Auto) 10.2 H, Eos % (Auto) 0.4, Baso % (Auto) 0.2, Absolute Neuts (auto) 8.8 H, Absolute Lymphs (auto) 0.54 L, Nucleated RBC % 0 07/23/20 05:20: Sodium 137, Potassium 3.9, Chloride 104, Carbon Dioxide 26.0, Anion Gap 7, BUN 19 H, Creatinine 0.97, Estim Creat Clear Calc 68.89, Est GFR (MDRD) Af Amer 96, Est GFR (MDRD) Non-Af 80, BUN/Creatinine Ratio 19.6, Glucose 171 H, Calcium 8.2 L, Total Bilirubin 1.40 H, AST 35, ALT 24, Alkaline Phosphatase 54, Total Protein 6.6, Albumin 2.8 L, Globulin 3.8, Albumin/Globulin Ratio 0.7 L, Triglycerides 83, Cholesterol 123, LDL Cholesterol 67, VLDL Cholest richard 17, HDL Cholesterol 39 L 07/23/20 05:20: Phosphorus 2.0 L, Magnesium 1.6 07/23/20 05:42: POC Glucose 170 H 07/23/20 11:01: POC Glucose 247 H Current Medications Acetaminophen (Acetaminophen 325 Mg Tablet) 650 mg PO Q6H PRN PRN PRN Reason: Pain Score 1-10/Temp > 100.7 F Al Hydroxide/Mg Hydroxide (Mag Hydrox/Al Hydrox/Simeth 30 Ml Udc) 30 ml PO Q6H PRN PRN PRN Reason: Gastric Burning Albuterol Sulfate (Albuterol 2.5 Mg/3 Ml Vial.Neb.) 2.5 mg INHALATION Q2H PRN PRN PRN Reason: Dyspnea, wheezing Aspirin (Aspirin 81 Mg Tab.Chew) 81 mg PO DAILY@0800 [facility] Last Admin: 07/23/20 05:46 Dose: 81 mg Documented by: Enoxaparin Sodium (Enoxaparin 100 Mg/Ml Syringe) 90 mg SC Q12@0600,1800 [facility] Last Admin: 07/23/20 01:16 Dose: Not Given Documented by: Guaifenesin (Guaifenesin 10 Ml Udc (200mg/10ml)) 20 ml PO Q4H PRN PRN PRN Reason: COUGH Hydralazine HCl (Hydralazine 20 Mg/Ml Vial) 10 mg IV Q4H PRN PRN PRN Reason: SBP > 160 Sodium Chloride () 1,000 mls @ 100 mls/hr IV .Q10H [facility] Last Admin: 07/23/20 10:26 Dose: 100 mls/hr Documented by: Insulin Human Lispro (Insulin Lispro 100 Unit/Ml Insuln.Pen) 0 unit SC ACHS [facility]; Protocol Last Admin: 07/23/20 11:02 Dose: 3 u Documented by: Insulin Lispro Protam/Lispro Human (Insulin Human 75/25 [place]) 20 unit SC BREAKFAST [facility] Last Admin: 07/23/20 09:26 Dose: Not Given Documented by: Insulin Lispro Protam/Lispro Human (Insulin Human 75/25 [place]) 10 unit SC DINNER [facility] Losartan Potassium (Losartan Potassium 25 Mg Tablet) 25 mg PO DAILY [facility] Last Admin: 07/23/20 05:46 Dose: 25 mg Documented by: Magnesium Hydroxide (Magnesium Hydroxide 30 Ml Udc) 30 ml PO DAILY PRN PRN PRN Reason: Constipation Melatonin (Melatonin 3 Mg Tablet) 3 mg PO QHS PRN PRN PRN Reason: INSOMNIA Metoprolol Succinate (Metoprolol(Xl)Succ 25 Mg Tablet) 12.5 mg PO DAILY [facility] Last Admin: 07/23/20 10:23 Dose: 12.5 mg Documented by: Montelukast Sodium (Montelukast 10 Mg Tablet) 10 mg PO DAILY [facility] Last Admin: 07/23/20 10:24 Dose: 10 mg Documented by: Morphine Sulfate (Morphine 2 Mg/Ml Syringe) 2 mg IV Q3H PRN PRN PRN Reason: Pain Score 6-10 Nitroglycerin (Nitroglycerin (Inpatient Use) 0.4 Mg Tab.Subl) 0.4 mg SUBLINGUAL Q5M PRN PRN Reason: CARDIAC/CHEST PAIN Ondansetron HCl (Ondansetron 4 Mg/2 Ml Vial) 4 mg IV Q8H PRN PRN PRN Reason: NAUSEA/VOMITING Oxycodone HCl (Oxycodone 5 Mg Tablet) 5 mg PO Q4H PRN PRN PRN Reason: Pain Score 4-5 Pantoprazole Sodium (Pantoprazole Sodium 40 Mg Tablet) 40 mg PO DAILY [facility] Last Admin: 07/23/20 10:24 Dose: 40 mg Documented by: Prochlorperazine Edisylate (Prochlorperazine 10 Mg/2 Ml Vial) 5 mg IV Q4H PRN PRN PRN Reason: Breakthrough Nausea/Vomiting Psyllium Hydrophilic Mucilloid (Psyllium 1 Packet) 1 packet PO DAILY PRN PRN PRN Reason: Constipation Senna/Docusate Sodium (Senna/Docusate Sodium 1 Tablet) 2 tablet PO BID PRN PRN PRN Reason: Constipation Sodium Chloride (0.9% Saline Lock 10 Ml Syringe) 10 - 40 ml IV UD PRN PRN Reason: SALINE FLUSH Last Admin: 07/22/20 20:32 Dose: 10 ml Documented by: Throat Lozenges (Benzocaine/Menthol 1 Lozenge) 1 lozenge MUCOUS MEM Q2H PRN PRN PRN Reason: SORE THROAT STROKE Vital Signs/Narrative: Vital Signs Temp Pulse Resp BP Pulse Ox 07/23/20 10:23 86 132/65 H 07/23/20 10:22 97.6 F L 86 18 132/65 H 98 Medical Necessity - Tobacco Use Smoking Status: Never smoker Tobacco Use: Non-smoker Assessment/Plan All Active Problems (Last Reviewed 05/16/20 @ 13:29 by Seema REID, PA) Elevation of cardiac enzymes (Acute) Near syncope (Acute) Elevated LFTs (Resolved) History of non-ST elevation myocardial infarction (NSTEMI) (Resolved 07/21/17) H/O coronary artery bypass surgery (Resolved 08/04/17) Pleural effusion (Resolved) Empyema of left pleural space (Ruled-out) 1. Near syncope vs generalized weakness - tele with PVCs, no chest pain. Trop indeterminate (max 0.161). Decreased EF per Stress test - no acute ischemic changes. Obtain PTOT evals. Check orthostatic vitals. CTA with no PE. 2. Abnormal trop - as above 3. Suspected parkinsons - masked facies, weakness, soft voice. recommend neuro follow up. PTOT evals. 4. Hx CAD with prior CABG - continue home meds. 5. Chronic Systolic CHF/ischemic CM - no acute process at this time. Chronic pleural effusion. 6. DMt2 - continue home insulin regimen. 7. hx CVA - asp/statin DVT ppx: Lovenox DC planning: PTOT evals. Attempted to call son (he has been helping at home), no answer at this time. This patient was seen by John Sierra PA-C under the supervision of Dr Ledezma <Yosi Ledezma - Last Filed: 07/23/20 15:02> Subjective: [place] weak and to be helped up by family. Denies any chest pain. Denies falls. Still drives. Vitals/I&O's: Vital Signs Temp Pulse Resp BP Pulse Ox 36.4 C L 86 18 132/65 H 98 07/23/20 10:22 07/23/20 10:23 07/23/20 10:22 07/23/20 10:23 07/23/20 10:22 Oxygen Delivery Method Room Air Weight: 82.2 kg Body Mass Index (BMI) 24.6 Orthostatic Vital Signs Start: 07/22/20 22:54 Freq: q24h Status: Active Protocol: Activity Type Activity Date Activity User E-Sign Co-Sign Detail Recorded Client Recorded Date Recorded By Document 07/23/20 02:30 AML [id number] 07/23/20 04:18 AML 07/23/20 02:30 Orthostatic Vitals Sitting -Blood Pressure (90/60-120/80) 147/83 H -Extremity Use Right Arm -Pulse Rate (60-100) 89 Lying -Blood Pressure (90/60-120/80) 152/77 H -Extremity Use Right Arm -Pulse Rate (60-100) 79 Intake and Output for Last 24 Hours 07/21/20 07/22/20 07/23/20 23:59 23:59 23:59 Intake Total 660.47 / 900.47 1643.33 / 1643.33 Output Total 600 / 600 Balance 660.47 / 700.47 1043.33 / 1043.33 General: Alert, Cooperative, - HEENT: - - impaired vertical saccades. horizontal nystagmus. Neck: Supple, Negative Carotid Bruits Lungs: Clear to auscultation, Normal air movement Cardiovascular: No murmurs, Irregular Rate Abdomen: Bowel Sounds Present, Soft, Non Tender Extremities: No edema, No Calf Tenderness Skin: No rashes, No breakdown Musculoskeletal: No Tenderness to Palpation of Joints or Extremities Psych/Mental Status: Normal Affect, Appropriate Microbiology Past 72 Hours 07/22/20 19:25 Mucosa - Nasopharyngeal Respiratory Panel (PCR) - Final 07/22/20 12:39 Mucosa - Nose SARS-CoV-2 Antigen (Rapid) - Final Laboratory Results 07/22/20 17:00: Troponin I 0.161 H 07/22/20 20:14: POC Glucose 202 H 07/22/20 23:14: Troponin I 0.153 H 07/22/20 : Magnesium 1.4 L 07/23/20 05:20: WBC 10.5, RBC 4.06 L, Hgb 12.0 L, Hct 36.8 L, MCV 90.6, MCH 29.6, MCHC 32.6, RDW Std Deviation 47.3 H, RDW Coeff of Sacha 14.1, Plt Count 215, MPV 11.4, Immature Gran % (Auto) 0.300, Neut % (Auto) 83.7 H, Lymph % (Auto) 5.2 L, [place] % (Auto) 10.2 H, Eos % (Auto) 0.4, Baso % (Auto) 0.2, Absolute Neuts (auto) 8.8 H, Absolute Lymphs (auto) 0.54 L, Nucleated RBC % 0 07/23/20 05:20: Sodium 137, Potassium 3.9, Chloride 104, Carbon Dioxide 26.0, Anion Gap 7, BUN 19 H, Creatinine 0.97, Estim Creat Clear Calc 68.89, Est GFR (MDRD) Af Amer 96, Est GFR (MDRD) Non-Af 80, BUN/Creatinine Ratio 19.6, Glucose 171 H, Calcium 8.2 L, Total Bilirubin 1.40 H, AST 35, ALT 24, Alkaline Phosphatase 54, Total Protein 6.6, Albumin 2.8 L, Globulin 3.8, Albumin/Globulin Ratio 0.7 L, Triglycerides 83, Cholesterol 123, LDL Cholesterol 67, VLDL Cholesterol 17, HDL Cholesterol 39 L 07/23/20 05:20: Phosphorus 2.0 L, Magnesium 1.6 07/23/20 05:42: POC Glucose 170 H 07/23/20 11:01: POC Glucose 247 H Current Medications Acetaminophen (Acetaminophen 325 Mg Tablet) 650 mg PO Q6H PRN PRN PRN Reason: Pain Score 1-10/Temp > 100.7 F Al Hydroxide/Mg Hydroxide (Mag Hydrox/Al Hydrox/Simeth 30 Ml Udc) 30 ml PO Q6H PRN PRN PRN Reason: Gastric Burning Albuterol Sulfate (Albuterol 2.5 Mg/3 Ml Vial.Neb.) 2.5 mg INHALATION Q2H PRN PRN PRN Reason: Dyspnea, wheezing Aspirin (Aspirin 81 Mg Tab.Chew) 81 mg PO DAILY@0800 [facility] Last Admin: 07/23/20 05:46 Dose: 81 mg Documented by: Enoxaparin Sodium (Enoxaparin 100 Mg/Ml Syringe) 90 mg SC Q12@0600,1800 [facility] Last Admin: 07/23/20 01:16 Dose: Not Given Documented by: Guaifenesin (Guaifenesin 10 Ml Udc (200mg/10ml)) 20 ml PO Q4H PRN PRN PRN Reason: COUGH Hydralazine HCl (Hydralazine 20 Mg/Ml Vial) 10 mg IV Q4H PRN PRN PRN Reason: SBP > 160 Sodium Chloride () 1,000 mls @ 100 mls/hr IV .Q10H [facility] Last Admin: 07/23/20 10:26 Dose: 100 mls/hr Documented by: Insulin Human Lispro (Insulin Lispro 100 Unit/Ml Insuln.Pen) 0 unit SC ACHS [facility]; Protocol Last Admin: 07/23/20 11:02 Dose: 3 u Documented by: Insulin Lispro Protam/Lispro Human (Insulin Human 75/25 Kwickpen) 20 unit SC BREAKFAST [facility] Last Admin: 07/23/20 09:26 Dose: Not Given Documented by: Insulin Lispro Protam/Lispro Human (Insulin Human 75/25 [place]wickpen) 10 unit SC DINNER [facility] Losartan Potassium (Losartan Potassium 25 Mg Tablet) 25 mg PO DAILY [facility] Last Admin: 07/23/20 05:46 Dose: 25 mg Documented by: Magnesium Hydroxide (Magnesium Hydroxide 30 Ml Udc) 30 ml PO DAILY PRN PRN PRN Reason: Constipation Melatonin (Melatonin 3 Mg Tablet) 3 mg PO QHS PRN PRN PRN Reason: INSOMNIA Metoprolol Succinate (Metoprolol(Xl)Succ 25 Mg Tablet) 12.5 mg PO DAILY [facility] Last Admin: 07/23/20 10:23 Dose: 12.5 mg Documented by: Montelukast Sodium (Montelukast 10 Mg Tablet) 10 mg PO DAILY [facility] Last Admin: 07/23/20 10:24 Dose: 10 mg Documented by: Morphine Sulfate (Morphine 2 Mg/Ml Syringe) 2 mg IV Q3H PRN PRN PRN Reason: Pain Score 6-10 Nitroglycerin (Nitroglycerin (Inpatient Use) 0.4 Mg Tab.Subl) 0.4 mg SUBLINGUAL Q5M PRN PRN Reason: CARDIAC/CHEST PAIN Ondansetron HCl (Ondansetron 4 Mg/2 Ml Vial) 4 mg IV Q8H PRN PRN PRN Reason: NAUSEA/VOMITING Oxycodone HCl (Oxycodone 5 Mg Tablet) 5 mg PO Q4H PRN PRN PRN Reason: Pain Score 4-5 Pantoprazole Sodium (Pantoprazole Sodium 40 Mg Tablet) 40 mg PO DAILY [facility] Last Admin: 07/23/20 10:24 Dose: 40 mg Documented by: Prochlorperazine Edisylate (Prochlorperazine 10 Mg/2 Ml Vial) 5 mg IV Q4H PRN PRN PRN Reason: Breakthrough Nausea/Vomiting Psyllium Hydrophilic Mucilloid (Psyllium 1 Packet) 1 packet PO DAILY PRN PRN PRN Reason: Constipation Senna/Docusate Sodium (Senna/Docusate Sodium 1 Tablet) 2 tablet PO BID PRN PRN PRN Reason: Constipation Sodium Chloride (0.9% Saline Lock 10 Ml Syringe) 10 - 40 ml IV UD PRN PRN Reason: SALINE FLUSH Last Admin: 07/22/20 20:32 Dose: 10 ml Documented by: Throat Lozenges (Benzocaine/Menthol 1 Lozenge) 1 lozenge MUCOUS MEM Q2H PRN PRN PRN Reason: SORE THROAT Assessment/Plan Patient seen and examined independently. Data reviewed. I agree with the above note by the physician golf player assistant. 1. NSTEMI: * peak troponin 0.161 * stress test negative for acute ischemia * likely type 2 * follow up echo * cardiology following. 2. failure to thrive * suspect patient has an underlying neurodegenerative disorder (parkinson's, PSP, MSA). Pt dismissive to the prospect, however, pt w impaired vertical saccades, masked facies, hypophonia * PT recommends additional therapy, max assistance with walking * pt lives by himself Inpatient E&M: [id number] Subs Hosp L2
--- NOTE | 2020-07-23 13:20 | NURSING ---
RN CM Assessment Introduced role of RN CM to patient.? Patient is alert, oriented and able?to participate in RN CM Assessment. ?Care providers, pharmacy, and demographics verified. Admit Dx: Near syncope, ? NSTEMI Re-Admit: No Barriers/Issues: Patient lives alone, does wear a medical alert device. States did get OOB with PT- pending assessment/recommendation notes- RNCM to f/u. Patient provided a list of SNF facilities to look over if recommended. Patient denies HHC as he states both him and his () had in the past and they did not do much/help. Patient states may be open to outpatient PT but would have to discuss it with his son. PCP: Karen Lowe Specialists: None [facility]acy: [facility] Insurance: [employer] A/B, [employer] Rx Benefit:?Yes LNOK: Son Emanuel Baker, Dtr Elida Marcia LW/HPOA: None. Denies wanting to complete on this admission or wanting any information. Aware can return as an outpatient to complete with social service dept and to notify staff if changes mind and wishing to complete on this admit. Living Arrangements:?Lives alone in a [place] [facility], 3 steps to enter with rails. ADL?s: Ambulates independently, independent with ADLs Transportation: Patient states that he drives some, dtr drives for grocery shopping and gi Castellanos drives when road conditions/weather conditions are bad and will upon hospital DC DME: Two 2WW and 2-3 cans that his had and is accessible for use. States she also had other DME. Patient has Medical alert device. HHC: Past, cannot recall agency. SNF: [facility] in the past Goal: Patient would like to go home and states/feels that he would do better in his home environment as he has his own regimen of rails by bed to get up ect. States if PT recommends additional therapy at SNF level- not opposed and would have to think about it, look over list that was provided. Does not want HH but would consider outpatient PT and would have to discuss with his son. Denies any other issues, concerns, or questions with DC planning at this time and aware RNCM remains available for any emerging needs. DC PLAN: TBD- F/u PT/OT recommendations. SNF vs Home with outpatient PT/OT. F/u on anticoagulation needs. Brie Vieira RNCM
[2020-07-23] MEDS: Na Biphos/Potassium Phosphate PACKET 1 PACKET PO ×3 (16:45→20:32)
[2020-07-23] MEDS: Magnesium Chloride 64 MG Delay Rel.Tablet 128 MG PO ×2 (16:45→20:32)
[2020-07-23] MEDS: Insulin Human 75/25 Kwickpen 20 UNIT SC (16:46)
[2020-07-23] MEDS: Insulin Human 75/25 Kwickpen 10 UNIT SC (16:49)
[2020-07-23] MEDS: Enoxaparin 100 MG/ML Syringe 90 MG SC (16:56)
[2020-07-23 17:40] LABS: Bedside Glucose 126 mg/dL (70-110)
[2020-07-23 20:45] LABS: Bedside Glucose 136 mg/dL (70-110)
[2020-07-24] VITALS (11 sets, daily range): BP systolic 138–152; BP diastolic 70–98; PULSE 70–98; RESP 16–20; TEMP 36.7–37.1; O2SAT 97–100
[2020-07-24] MEDS: guaiFENesin 10 ML UDC (200MG/10ML) 20 ML PO (03:35)
[2020-07-24] MEDS: Enoxaparin 100 MG/ML Syringe 90 MG SC (05:09)
[2020-07-24] MEDS: 0.9% Normal Saline 1,000 ML 100 ML IV ×2 (06:30→17:28)
[2020-07-24] MEDS: Insulin Lispro 100 UNIT/ML INSULN.PEN SC (06:35)
[2020-07-24 07:00] LABS: Bedside Glucose 153 mg/dL (70-110)
[2020-07-24] MEDS: Aspirin 81 MG TAB.CHEW PO (08:21)
[2020-07-24] MEDS: Magnesium Chloride 64 MG Delay Rel.Tablet 128 MG PO ×2 (08:21→22:14)
[2020-07-24] MEDS: Losartan Potassium 25 MG Tablet PO (08:21)
[2020-07-24] MEDS: Pantoprazole Sodium 40 MG Tablet PO (08:22)
[2020-07-24] MEDS: Metoprolol(XL)Succ 25 MG Tablet 12.5 MG PO (08:22)
[2020-07-24] MEDS: Montelukast 10 MG Tablet PO (08:22)
[2020-07-24] MEDS: Insulin Human 75/25 Kwickpen 20 UNIT SC (08:40)
--- NOTE | 2020-07-24 08:49 | CASEMGMT ---
MIRTHA met with patient. MIRTHA introduced self and role at [facility]. SW asked patient if he feels like he is safe to go home. He said he feels like he is fine to go home at discharge. MIRTHA asked if he would like home health. MIRTHA explained he would not have to pay for it as Medicare covers it. He said he will think about it. MIRTHA told him we will see how he does with therapy today. Stephie CASTILLO
--- NOTE | 2020-07-24 10:18 | NURSING ---
wound photo: right great toe
[2020-07-24 11:50] LABS: Bedside Glucose 111 mg/dL (70-110)
[2020-07-24] MEDS: Na Biphos/Potassium Phosphate PACKET 1 PACKET PO (14:03)
--- NOTE | 2020-07-24 14:27 | PCM.PN.HOSP ---
<John Sierra - Last Filed: 07/24/20 14:27> Patient Problems: Active and Suspected Problems (Last Reviewed 05/16/20 @ 13:29 by Seema REID PA) Elevation of cardiac enzymes (Acute) Near syncope (Acute) Reason for Visit: Weakness Subjective: Pt with ongoing weakness tho he is ambulating with 1 assist today, able to stand up and get out of bed on his own. He has wounds on his great toes as well. He has no fever/chills. There is redness and pain in the great toes. He has not seen a manager council before. Vitals/I&O's: Vital Signs Temp Pulse Resp BP Pulse Ox 98.0 F 76 18 138/70 H 98 07/24/20 11:30 07/24/20 12:46 07/24/20 11:30 07/24/20 11:30 07/24/20 11:30 Oxygen Delivery Method Room Air Weight: 186 lb 1.122 oz Body Mass Index (BMI) 24.6 Orthostatic Vital Signs Start: 07/22/20 22:54 Freq: q24h Status: Active Protocol: Activity Type Activity Date Activity User E-Sign Co-Sign Detail Recorded Client Recorded Date Recorded By Document 07/23/20 16:53 [id number] 07/23/20 16:54 07/23/20 16:53 Orthostatic Vitals Standing -Blood Pressure (90/60-120/80) 147/72 H -Pulse Rate (60-100) 86 Sitting -Blood Pressure (90/60-120/80) 151/72 H -Pulse Rate (60-100) 84 Lying -Blood Pressure (90/60-120/80) 145/86 H -Pulse Rate (60-100) 83 Intake and Output for Last 24 Hours 07/22/20 07/23/20 07/24/20 23:59 23:59 23:59 Intake Total 660.47 / 900.47 2876.66 / 2976.66 1450 / 1450 Output Total 700 / 775 675 / 675 Balance 660.47 / 700.47 2176.66 / 2201.66 775 / 775 General: Alert, Oriented x3, Cooperative HEENT: Atraumatic, PERRLA, EOMI, Normocephalic Neck: Supple, No JVD, Negative Carotid Bruits Lungs: Clear to auscultation, Normal air movement Cardiovascular: Regular rate, No murmurs Abdomen: Bowel Sounds Present, Soft, Non Tender Extremities: No edema, Capillary Refill Less than 3 Seconds Skin: No rashes, No breakdown, - - right great toe with ulceration, black eschar, surrounding erythema and warmth. left great toe with ulceration. BL feet with onychomycosis, right foot with dry skin, cracked, peeling Musculoskeletal: No Tenderness to Palpation of Joints or Extremities Neurological: Cranial nerves II-XII grossly intact Psych/Mental Status: Normal Affect, Appropriate Microbiology Past 72 Hours 07/22/20 12:25 Blood Culture (Wb) - Left Hand Blood Culture - Preliminary No growth in 48 hours. 07/22/20 12:23 Blood Culture (Wb) - Left Forearm Blood Culture - Preliminary No growth in 48 hours. 07/22/20 19:25 Mucosa - Nasopharyngeal Respiratory Panel (PCR) - Final 07/22/20 12:39 Mucosa - Nose SARS-CoV-2 Antigen (Rapid) - Final Laboratory Results 07/23/20 16:44: POC Glucose 126 H 07/23/20 20:39: POC Glucose 136 H 07/24/20 06:34: POC Glucose 153 H 07/24/20 11:43: POC Glucose 111 H Current Medications Acetaminophen (Acetaminophen 325 Mg Tablet) 650 mg PO Q6H PRN PRN PRN Reason: Pain Score 1-10/Temp > 100.7 F Al Hydroxide/Mg Hydroxide (Mag Hydrox/Al Hydrox/Simeth 30 Ml Udc) 30 ml PO Q6H PRN PRN PRN Reason: Gastric Burning Albuterol Sulfate (Albuterol 2.5 Mg/3 Ml Vial.Neb.) 2.5 mg INHALATION Q2H PRN PRN PRN Reason: Dyspnea, wheezing Aspirin (Aspirin 81 Mg Tab.Chew) 81 mg PO DAILY@0800 [facility] Last Admin: 07/24/20 08:21 Dose: 81 mg Documented by: Enoxaparin Sodium (Enoxaparin 100 Mg/Ml Syringe) 90 mg SC Q12@0600,1800 [facility] Last Admin: 07/24/20 05:09 Dose: 90 mg Documented by: Guaifenesin (Guaifenesin 10 Ml Udc (200mg/10ml)) 20 ml PO Q4H PRN PRN PRN Reason: COUGH Last Admin: 07/24/20 03:35 Dose: 20 ml Documented by: Hydralazine HCl (Hydralazine 20 Mg/Ml Vial) 10 mg IV Q4H PRN PRN PRN Reason: SBP > 160 Sodium Chloride () 1,000 mls @ 100 mls/hr IV .Q10H [facility] Last Admin: 07/24/20 06:30 Dose: 100 mls/hr Documented by: Insulin Human Lispro (Insulin Lispro 100 Unit/Ml Insuln.Pen) 0 unit SC ACHS [facility]; Protocol Last Admin: 07/24/20 12:07 Dose: Not Given Documented by: Insulin Lispro Protam/Lispro Human (Insulin Human 75/25 [place]) 20 unit SC BREAKFAST [facility] Last Admin: 07/24/20 08:40 Dose: 20 u Documented by: Insulin Lispro Protam/Lispro Human (Insulin Human 75/25 [place]) 10 unit SC DINNER [facility] Last Admin: 07/23/20 16:49 Dose: 10 u Documented by: Losartan Potassium (Losartan Potassium 25 Mg Tablet) 25 mg PO DAILY [facility] Last Admin: 07/24/20 08:21 Dose: 25 mg Documented by: Magnesium Chloride (Magnesium Chloride 64 Mg Delay Rel.Tablet) 128 mg PO BID [facility] Last Admin: 07/24/20 08:21 Dose: 128 mg Documented by: Magnesium Hydroxide (Magnesium Hydroxide 30 Ml Udc) 30 ml PO DAILY PRN PRN PRN Reason: Constipation Melatonin (Melatonin 3 Mg Tablet) 3 mg PO QHS PRN PRN PRN Reason: INSOMNIA Metoprolol Succinate (Metoprolol(Xl)Succ 25 Mg Tablet) 12.5 mg PO DAILY [facility] Last Admin: 07/24/20 08:22 Dose: 12.5 mg Documented by: Montelukast Sodium (Montelukast 10 Mg Tablet) 10 mg PO DAILY [facility] Last Admin: 07/24/20 08:22 Dose: 10 mg Documented by: Morphine Sulfate (Morphine 2 Mg/Ml Syringe) 2 mg IV Q3H PRN PRN PRN Reason: Pain Score 6-10 Nitroglycerin (Nitroglycerin (Inpatient Use) 0.4 Mg Tab.Subl) 0.4 mg SUBLINGUAL Q5M PRN PRN Reason: CARDIAC/CHEST PAIN Ondansetron HCl (Ondansetron 4 Mg/2 Ml Vial) 4 mg IV Q8H PRN PRN PRN Reason: NAUSEA/VOMITING Oxycodone HCl (Oxycodone 5 Mg Tablet) 5 mg PO Q4H PRN PRN PRN Reason: Pain Score 4-5 Pantoprazole Sodium (Pantoprazole Sodium 40 Mg Tablet) 40 mg PO DAILY [facility] Last Admin: 07/24/20 08:22 Dose: 40 mg Documented by: Prochlorperazine Edisylate (Prochlorperazine 10 Mg/2 Ml Vial) 5 mg IV Q4H PRN PRN PRN Reason: Breakthrough Nausea/Vomiting Psyllium Hydrophilic Mucilloid (Psyllium 1 Packet) 1 packet PO DAILY PRN PRN PRN Reason: Constipation Senna/Docusate Sodium (Senna/Docusate Sodium 1 Tablet) 2 tablet PO BID PRN PRN PRN Reason: Constipation Sodium Chloride (0.9% Saline Lock 10 Ml Syringe) 10 - 40 ml IV UD PRN PRN Reason: SALINE FLUSH Last Admin: 07/22/20 20:32 Dose: 10 ml Documented by: Throat Lozenges (Benzocaine/Menthol 1 Lozenge) 1 lozenge MUCOUS MEM Q2H PRN PRN PRN Reason: SORE THROAT STROKE Vital Signs/Narrative: Vital Signs Temp Pulse Resp BP Pulse Ox 07/24/20 12:46 76 07/24/20 11:30 98.0 F 70 18 138/70 H 98 Medical Necessity - Tobacco Use Smoking Status: Never smoker Tobacco Use: Non-smoker Assessment/Plan All Active Problems (Last Reviewed 05/16/20 @ 13:29 by Seema REID, PA) Elevation of cardiac enzymes (Acute) Near syncope (Acute) Elevated LFTs (Resolved) History of non-ST elevation myocardial infarction (NSTEMI) (Resolved 07/21/17) H/O coronary artery bypass surgery (Resolved 08/04/17) Pleural effusion (Resolved) Empyema of left pleural space (Ruled-out) 1. Near syncope vs generalized weakness - this does not appear to have been syncope/near syncope but rather generalized workup. acute cardiac workup thus far negative. 2. Abnormal trop - as above. no further workup at this time. follow up as outpatient with cardiology. 3. BL great toe ulcerations likely nonhealing diabetic wounds - right toe appears to have acute cellulitis. Podiatry consulted. Xray ordered. Unasyn started. Obtain culture. BL onychomycosis and right tinea pedis as well - clotrimazole added. callus' and nails need trimming. No fever/leukocytosis. 4. Suspected parkinsons - masked facies, weakness, soft voice. recommend neuro follow up. PTOT evals. 5. Hx CAD with prior CABG - continue home meds. 6. Chronic Systolic CHF/ischemic CM - no acute process at this time. Chronic pleural effusion. EF 25%. 7. DMt2 - continue home insulin regimen. 8. hx CVA - asp/statin DVT ppx: Lovenox [place] planning: PTOT evals. Pt weak but wants to go home. [facility]. No driving at [place]. This patient was seen by John Sierra PA-C under the supervision of Dr Ledezma <Yosi Ledezma - Last Filed: 07/24/20 14:52> Subjective: Patient continues to states that he will be fine, states that he is fine driving unsure is at people have a safe distance in front of them. States that he has not changed his driving behavior whatsoever and feels that he is strong enough to return home. When addressing the fact that he falls and that he even states that he patient places a chair right next to his bed in case he falls, he is dismissive of that. Patient states that he developed a sore on his right toe and was pouring Listerine over it. States that he wears very tight fitting shoes because anything looser makes him feel unsteady. Vitals/I&O's: Vital Signs Temp Pulse Resp BP Pulse Ox 36.7 C 76 18 138/70 H 98 07/24/20 11:30 07/24/20 12:46 07/24/20 11:30 07/24/20 11:30 07/24/20 11:30 Oxygen Delivery Method Room Air Weight: 84.4 kg Body Mass Index (BMI) 24.6 Orthostatic Vital Signs Start: 07/22/20 22:54 Freq: q24h Status: Active Protocol: Activity Type Activity Date Activity User E-Sign Co-Sign Detail Recorded Client Recorded Date Recorded By Document 07/23/20 16:53 [id number] 07/23/20 16:54 07/23/20 16:53 Orthostatic Vitals Standing -Blood Pressure (90/60-120/80) 147/72 H -Pulse Rate (60-100) 86 Sitting -Blood Pressure (90/60-120/80) 151/72 H -Pulse Rate (60-100) 84 Lying -Blood Pressure (90/60-120/80) 145/86 H -Pulse Rate (60-100) 83 Intake and Output for Last 24 Hours 07/22/20 07/23/20 07/24/20 23:59 23:59 23:59 Intake Total 660.47 / 900.47 2876.66 / 2976.66 1450 / 1450 Output Total 700 / 775 675 / 675 Balance 660.47 / 700.47 2176.66 / 2201.66 775 / 775 General: Alert, Cooperative HEENT: Atraumatic, Normocephalic Lungs: Clear to auscultation, Normal air movement, No rhonchi, No wheeze Cardiovascular: Regular rate, Regular Rhythm, Normal S1, Normal S2, No murmurs Abdomen: Bowel Sounds Present, Soft, Non Tender, Non-Distended Extremities: No edema Skin: Ulcer/ Wound - Patient has calluses on the distal great toes bilaterally. Patient has discoloration at the right great toe callus. Patient was has erythema extending up his right great toe to the foot. Neurological: - - Patient set up on his own took roughly about 2 minutes. Then had the patient stand up. Patient was able to stand up on his own however rested this back of his legs against the bed. Masked facies. Voice is a little bit stronger but still weak overall. Microbiology Past 72 Hours 07/22/20 12:25 Blood Culture (Wb) - Left Hand Blood Culture - Preliminary No growth in 48 hours. 07/22/20 12:23 Blood Culture (Wb) - Left Forearm Blood Culture - Preliminary No growth in 48 hours. 07/22/20 19:25 Mucosa - Nasopharyngeal Respiratory Panel (PCR) - Final 07/22/20 12:39 Mucosa - Nose SARS-CoV-2 Antigen (Rapid) - Final Laboratory Results 07/23/20 16:44: POC Glucose 126 H 07/23/20 20:39: POC Glucose 136 H 07/24/20 06:34: POC Glucose 153 H 07/24/20 11:43: POC Glucose 111 H Current Medications Acetaminophen (Acetaminophen 325 Mg Tablet) 650 mg PO Q6H PRN PRN PRN Reason: Pain Score 1-10/Temp > 100.7 F Al Hydroxide/Mg Hydroxide (Mag Hydrox/Al Hydrox/Simeth 30 Ml Udc) 30 ml PO Q6H PRN PRN PRN Reason: Gastric Burning Albuterol Sulfate (Albuterol 2.5 Mg/3 Ml Vial.Neb.) 2.5 mg INHALATION Q2H PRN PRN PRN Reason: Dyspnea, wheezing Aspirin (Aspirin 81 Mg Tab.Chew) 81 mg PO DAILY@0800 [facility] Last Admin: 07/24/20 08:21 Dose: 81 mg Documented by: Clotrimazole (Clotrimazole 1 Tube) 1 applicatio TOPICAL BID [facility]; Protocol Enoxaparin Sodium (Enoxaparin 40 Mg/0.4 Ml Syringe) 40 mg SC DAILY@0600 [facility] Guaifenesin (Guaifenesin 10 Ml Udc (200mg/10ml)) 20 ml PO Q4H PRN PRN PRN Reason: COUGH Last Admin: 07/24/20 03:35 Dose: 20 ml Documented by: Hydralazine HCl (Hydralazine 20 Mg/Ml Vial) 10 mg IV Q4H PRN PRN PRN Reason: SBP > 160 Sodium Chloride () 1,000 mls @ 100 mls/hr IV .Q10H [facility] Last Admin: 07/24/20 06:30 Dose: 100 mls/hr Documented by: Ampicillin Sodium/Sulbactam (Sodium 3 gm/ Sodium Chloride) 112 mls @ 150 mls/hr IV Q8 [facility] Insulin Human Lispro (Insulin Lispro 100 Unit/Ml Insuln.Pen) 0 unit SC ACHS [facility]; Protocol Last Admin: 07/24/20 12:07 Dose: Not Given Documented by: Insulin Lispro Protam/Lispro Human (Insulin Human 75/25 [place]) 20 unit SC BREAKFAST [facility] Last Admin: 07/24/20 08:40 Dose: 20 u Documented by: Insulin Lispro Protam/Lispro Human (Insulin Human 75/25 [place]) 10 unit SC DINNER [facility] Last Admin: 07/23/20 16:49 Dose: 10 u Documented by: Losartan Potassium (Losartan Potassium 25 Mg Tablet) 25 mg PO DAILY [facility] Last Admin: 07/24/20 08:21 Dose: 25 mg Documented by: Magnesium Chloride (Magnesium Chloride 64 Mg Delay Rel.Tablet) 128 mg PO BID [facility] Last Admin: 07/24/20 08:21 Dose: 128 mg Documented by: Magnesium Hydroxide (Magnesium Hydroxide 30 Ml Udc) 30 ml PO DAILY PRN PRN PRN Reason: Constipation Melatonin (Melatonin 3 Mg Tablet) 3 mg PO QHS PRN PRN PRN Reason: INSOMNIA Metoprolol Succinate (Metoprolol(Xl)Succ 25 Mg Tablet) 12.5 mg PO DAILY [facility] Last Admin: 07/24/20 08:22 Dose: 12.5 mg Documented by: Montelukast Sodium (Montelukast 10 Mg Tablet) 10 mg PO DAILY [facility] Last Admin: 07/24/20 08:22 Dose: 10 mg Documented by: Morphine Sulfate (Morphine 2 Mg/Ml Syringe) 2 mg IV Q3H PRN PRN PRN Reason: Pain Score 6-10 Nitroglycerin (Nitroglycerin (Inpatient Use) 0.4 Mg Tab.Subl) 0.4 mg SUBLINGUAL Q5M PRN PRN Reason: CARDIAC/CHEST PAIN Ondansetron HCl (Ondansetron 4 Mg/2 Ml Vial) 4 mg IV Q8H PRN PRN PRN Reason: NAUSEA/VOMITING Oxycodone HCl (Oxycodone 5 Mg Tablet) 5 mg PO Q4H PRN PRN PRN Reason: Pain Score 4-5 Pantoprazole Sodium (Pantoprazole Sodium 40 Mg Tablet) 40 mg PO DAILY [facility] Last Admin: 07/24/20 08:22 Dose: 40 mg Documented by: Prochlorperazine Edisylate (Prochlorperazine 10 Mg/2 Ml Vial) 5 mg IV Q4H PRN PRN PRN Reason: Breakthrough Nausea/Vomiting Psyllium Hydrophilic Mucilloid (Psyllium 1 Packet) 1 packet PO DAILY PRN PRN PRN Reason: Constipation Senna/Docusate Sodium (Senna/Docusate Sodium 1 Tablet) 2 tablet PO BID PRN PRN PRN Reason: Constipation Sodium Chloride (0.9% Saline Lock 10 Ml Syringe) 10 - 40 ml IV UD PRN PRN Reason: SALINE FLUSH Last Admin: 07/22/20 20:32 Dose: 10 ml Documented by: Throat Lozenges (Benzocaine/Menthol 1 Lozenge) 1 lozenge MUCOUS MEM Q2H PRN PRN PRN Reason: SORE THROAT STROKE Vital Signs/Narrative: Vital Signs Temp Pulse Resp BP Pulse Ox 07/24/20 12:46 76 07/24/20 11:30 36.7 C 70 18 138/70 H 98 Assessment/Plan Patient seen and examined independently. Data reviewed. I agree with the above note by the physician mortgage loan assistant. 1. NSTEMI: peak troponin 0.161 stress test negative for acute ischemia likely type 2 follow up echo cardiology following. 2. failure to thrive suspect patient has an underlying neurodegenerative disorder (parkinson's, PSP, MSA). Pt dismissive to the prospect, however, pt w impaired vertical saccades, masked facies, hypophonia PT recommends additional therapy, max assistance with walking pt lives by himself Had a long conversation about the patient's weakness and his falls. As mentioned earlier, patient was dismissive of disclaims though he does endorse that he falls but states that he has family history of falls regards to his father and uncles and so forth. Explained that if he falls another time by going home that he could potentially fracture something such as a hip from his back worse have some more severe injury. And also expressed concern about his reaction time being potentially impaired and I did advise that he hold off on driving until he is a former geriatric driving assessment to see if his reaction time is appropriate enough to drive safely. Patient expressed no interest in doing that. I told them that given his overall debility that he is at higher risk of causing an accident because his reaction time may be impaired though no fault of his own. I did tell him that if he were to cause any accident or injury that he could be personally liable for injuries potentially sustained. I did tell him this several times. The told him that if he were to cause an accident appeared to be deposed that he should answer honestly if he was ever told that he should not drive. 3. Right great toe cellulitis: Likely from the large callus that he has Started on ampicillin/sulbactam Check culture Likely from him wearing tight fitting shoes Podiatry on consultation Check foot x-ray. Patient may need further imaging if there is any concern for osteomyelitis. Greater than 35 minutes of which greater than 50% time was at bedside discussing with the patient about his weakness, potential etiology, returning home and driving restrictions. Inpatient E&M: 84850 Subs Hosp L3
--- NOTE | 2020-07-24 15:29 | RAD_ITS ---
STUDY: X-RAY - RIGHT FOOT CLINICAL: Male, 79 years old. GREAT TOE ULCERATION. TECHNIQUE: 3 view(s) of the foot. COMPARISON: None. FINDINGS: Normal talus, calcaneus, and tarsal bones. Calcific atherosclerotic disease. Normal visualized subtalar, talonavicular, calcaneocuboid, tarsal and tarsometatarsal articulations. Normal metatarsi. Normal metatarsophalangeal joint of the great toe. Normal tibial and fibular sesamoid bones. Normal interphalangeal joint of the great toe. Normal phalanges of the great toe. Normal second through fifth metatarsophalangeal joints. Normal interphalangeal joints and phalanges of the lesser toes. The soft tissue structures are unremarkable. RAD/Foot min 3 Views IMPRESSION: Normal x-ray examination of the foot. Electronically Signed: Jacques Killian MD at 20:35 EST , Service support ,
--- NOTE | 2020-07-24 16:58 | MRI_ITS ---
RIGHT distal great toe wound x 2 weeks, diabetes EXAMINATION: MR Forefoot W/O Contrast TECHNIQUE: Sagittal T1 and STIR, axial T1 and T2 and coronal T2 IV Contrast dosage and agent: None COMPARISON: Radiograph of the right foot on July 24, 2020 FINDINGS: JOINTS: Small joint effusion is seen at the first metatarsophalangeal joint BONE: There is marrow edema involving the distal phalanx of the great toe demonstrating decreased signal on T1-weighted images there is a subtle area of low density is seen at the base of the tuft. I cannot exclude a small nondisplaced fracture. This is seen on coronal image 9 series 9 and sagittal image 11 series 3. Differential includes osteomyelitis. No additional edema is seen within the osseous structures visualized. SOFT TISSUES: There is edema surrounding the great toe in the soft tissues. A bandage overlies the medial tip of the great toe partially obscuring visualization. There is no evidence of tenosynovitis. Minimal subcutaneous edema is seen overlying the lateral dorsum of the foot. No gross plantar plate injury MRI/Lower Ext/No Jt/w/o IMPRESSION: Marrow edema is seen within the distal phalanx of the great toe. There is an overlying soft tissue defect and bandage. Question linear area of low density seen at the base of the tuft. I cannot exclude a displaced fracture. These findings are suspicious for osteomyelitis. Would consider a CT scan follow-up to assess for fracture. Without contrast it is difficult to assess for an abscess There is subcutaneous edema overlying the lateral dorsal aspect of the foot. at [id number] Reported and signed by: Zina Carrasco DO Electronically Signed: Zina Carrasco DO at 22:47 EST Tel , Service support ,
--- NOTE | 2020-07-24 16:58 | ART_ITS ---
Reason For Study: ulcer Procedure A bilateral lower extremity continuous wave Doppler with analog waveform analysis,segmental pressures,and ankle brachial indexes without exercise. Left Segmental Pressures Left posterior tibial artery = 254mmHg. Left digit = 68 mmHg. DPA is noncompressible. The left dorsalis pedis waveforms are biphasic. The left posterior tibial artery waveforms are biphasic. Right Segmental Pressures Right brachial= 169mmHg. Right thigh = 175mmHg. Right calf = 115mmHg. Right posterior tibial artery = 82mmHg. Right dorsalis pedis artery = 102mmHg. Right digit = 32 mmHg. The right dorsalis pedis waveforms are monophasic. The right posterior tibial artery waveforms are monophasic. Indices The right ankle brachial index by the dorsalis pedis is .6. The right ankle brachial index by the posterior tibial artery is .49. The left ankle brachial index by the posterior tibial artery is 1.16. The left digital-brachial index is .4. DPA is noncompressible. 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 Abnormal right digital brachial index of only 0.19 Minimal investigation of the left lower extremity with a normal left PT ankle-brachial index of 1.16 but a noncalculable left DP index due to noncompressibility. Based upon left posterior tibial and dorsalis pedis biphasic waveforms moderately severe occlusive disease noted Abnormal left digital brachial index 0.4 Ordering Physician: Clarita Carbajal Performed By: REJI MAS Shara
--- NOTE | 2020-07-24 17:02 | CON.PCM_ITS ---
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 right foot cellulitis History of Present Illness: The patient is a 79 year old M who presents to the hospital for debility and near syncable episode. Patient complained of toe pain was was noted to have ulceration to his right hallux. Patient relates that he has had this for about a week. He states he has been soaking it in listerine. Patient states he has some pain in area sometimes. Patient denies any vascular problems. Patient states he isn't much of a 'doctor person', He states he is diabetic but it is well controlled. Patient denies any N/F/V/C/CP/SOB/Streaking/purulence/cough.[] Past Medical History Past Medical History (Chronic Problems): Chronic Problems (Last Reviewed 05/16/20 @ 13:29 by Seema REID, PA) CAD (coronary artery disease) (Chronic) Pleural effusion on left (Chronic) loculated per CT Chest 07/2019 thoracentesis 07/2019 Mass of right lung (Chronic) bronchoscopy 07/2019 Old inferior wall myocardial infarction (Chronic) Atherosclerotic heart disease of kaw coronary artery without angina pectoris (Chronic) Ischemic cardiomyopathy (Chronic) History of CVA (cerebrovascular accident) (Chronic 07/2017) Right bundle branch block (RBBB) (Chronic) Carotid artery stenosis (Chronic) R CEA 2018 Essential (primary) hypertension (Chronic) Claudication of both lower extremities (Chronic) Peripheral vascular occlusive disease (Chronic) RLE Medical History: Medical History (Last Reviewed 05/16/20 @ 13:29 by Seema REID, PA) Pleural effusion on left (Chronic) J90 loculated per CT Chest 07/2019 thoracentesis 07/2019 Elevated LFTs (Resolved) R79.89 Hepatic steatosis Mass of right lung (Chronic) R91.8 bronchoscopy 07/2019 Old inferior wall myocardial infarction (Chronic) I25.2 Atherosclerotic heart disease of kaw coronary artery without angina pectoris (Chronic) I25.10 History of non-ST elevation myocardial infarction (NSTEMI) (Resolved) Onset Date: 07/21/17 I25.2 Ischemic cardiomyopathy (Chronic) I25.5 History of CVA (cerebrovascular accident) (Chronic) Onset Date: 07/2017 Z86.73 Right bundle branch block (RBBB) (Chronic) I45.10 Carotid artery stenosis (Chronic) I65.29 R CEA 2018 Essential (primary) hypertension (Chronic) I10 Claudication of both lower extremities (Chronic) I73.9 Peripheral vascular occlusive disease (Chronic) I73.9 RLE DM2 (diabetes mellitus, type 2) E11.9 Hepatic steatosis K76.0 Hydrocele, right N43.3 Pleural effusion (Resolved) J90 Empyema of left pleural space (Ruled-out) J86.9 Allergies Atxauhc-Zlm-Gyt Reductase Inhibitor Adverse Reaction (Severe, Verified 07/22/20 12:09) mylagias lisinopril Adverse Reaction (Verified 07/22/20 12:09) cough Home Medications: Ambulatory Orders Medication Instructions Recorded insulin human U-100 NPH-regulr 12 unit SC .COMPLEX 11/18/17 70-30 mix 100 unit/mL subcutaneous susp ascorbic acid (vitamin C) 1,000 mg 1 g PO DAILY tab 11/15/19 tablet aspirin 81 mg tablet,delayed 81 mg PO DAILY 11/15/19 release chromium picolinate 1,000 mcg 1,000 mcg PO DAILY 11/15/19 tablet coenzyme Q10 200 mg capsule 200 mg PO DAILY 11/15/19 dandelion 500 mg capsule 500 mg PO DAILY cap 11/15/19 grape seed extract 50 mg capsule 50 mg PO DAILY cap 11/15/19 pantoprazole 40 mg tablet,delayed 40 mg PO DAILY tab 11/15/19 release losartan 25 mg tablet 25 mg PO DAILY #30 tab 05/16/20 montelukast 10 mg tablet 10 mg PO DAILY 05/16/20 Surgical History: Surgical History (Last Reviewed 07/24/20 @ 17:[address] Clarita Carbajal, DPM) H/O coronary artery bypass surgery (Resolved) Onset Date: 08/04/17 Z95.1 History of bronchoscopy Onset Date: 08/25/19 Z98.890 LUNG, RIGHT LOWER LOBE, BIOPSY - FEATURES SUGGEST ORGANIZING INFLAMMATION. SEE COMMENT. 08/25/2019 COMMENT; There is no evidence of malignancy. Immunohistochemical stain for S100 is negative for Langerhans cells. Special stains for AFB and GMS were negative for fungal elements and mycobacteria, respectively. History of right-sided carotid endarterectomy Onset Date: 09/24/17 Z98.890 09/24/[address] Reyes @ [facility] History of thoracentesis Onset Date: 07/2019 Z98.890 left Surgical History: coronary bypass surgery, - - CABG x3, right CEA. Psychiatric History: No pertinent psych hx Lives: Alone Smoking Status: Never smoker Tobacco Use: Non-smoker Alcohol: None Drugs: None - *Family History Paternal History Items: Heart Disease Maternal History Items: - - Patient denies any market maternal family history including heart disease, diabetes, cancer. Review of Systems Constitutional: Denies: Chills, Fever Cardiovascular: Denies: Chest Pain Respiratory: Reports: Cough - chronic. 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 (Acute) - Physical Exam Vitals/I&O's: Vital Signs Temp Pulse Resp BP Pulse Ox 98.0 F 81 20 H 143/77 H 99 07/24/20 15:30 07/24/20 15:30 07/24/20 15:30 07/24/20 15:30 07/24/20 15:30 Oxygen Delivery Method Room Air Weight: 84.4 kg Body Mass Index (BMI) 24.6 Orthostatic Vital Signs Start: 07/22/20 22:54 Freq: q24h Status: Active Protocol: Activity Type Activity Date Activity User E-Sign Co-Sign Detail Recorded Client Recorded Date Recorded By Document 07/23/20 16:53 [id number] 07/23/20 16:54 07/23/20 16:53 Orthostatic Vitals Standing -Blood Pressure (90/60-120/80) 147/72 H -Pulse Rate (60-100) 86 Sitting -Blood Pressure (90/60-120/80) 151/72 H -Pulse Rate (60-100) 84 Lying -Blood Pressure (90/60-120/80) 145/86 H -Pulse Rate (60-100) 83 Intake and Output for Last 24 Hours 07/22/20 07/23/20 07/24/20 23:59 23:59 23:59 Intake Total 660.47 / 900.47 2876.66 / 2976.66 2363.33 / 2363.33 Output Total 700 / 775 675 / 675 Balance 660.47 / 700.47 2176.66 / 2201.66 1688.33 / 1688.33 General: Alert, Cooperative HEENT: Atraumatic Extremities: No clubbing, No cyanosis, Capillary Refill Less than 3 Seconds, No Calf Tenderness, Diminished Peripheral Pulses - bilateral PT and DP, Edema - right foot, Tenderness - right great toe, - - elongated, thickened, discolored, dystrophic nails 1-5 bilateral Skin: Ulcer/ Wound - Right distal hallux. Probes to bone. Necrotic tissue noted. Sanginous drainage. Surrounding erythema/edema/callus tissue. No malodor, no purulence. Surrounding erythema and edema noted Musculoskeletal: Muscle Wasting, Tenderness - right hallux Neurological: - - decreased light touch sensation Psych/Mental Status: Normal Affect, Appropriate Microbiology Past 72 Hours 07/22/20 12:25 Blood Culture (Wb) - Left Hand Blood Culture - Preliminary No growth in 48 hours. 07/22/20 12:23 Blood Culture (Wb) - Left Forearm Blood Culture - Preliminary No growth in 48 hours. 07/22/20 19:25 Mucosa - Nasopharyngeal Respiratory Panel (PCR) - Final 07/22/20 12:39 Mucosa - Nose SARS-CoV-2 Antigen (Rapid) - Final Laboratory Results 07/23/20 16:44: POC Glucose 126 H 07/23/20 20:39: POC Glucose 136 H 07/24/20 06:34: POC Glucose 153 H 07/24/20 11:43: POC Glucose 111 H Current Medications Acetaminophen (Acetaminophen 325 Mg Tablet) 650 mg PO Q6H PRN PRN PRN Reason: Pain Score 1-10/Temp > 100.7 F Al Hydroxide/Mg Hydroxide (Mag Hydrox/Al Hydrox/Simeth 30 Ml Udc) 30 ml PO Q6H PRN PRN PRN Reason: Gastric Burning Albuterol Sulfate (Albuterol 2.5 Mg/3 Ml Vial.Neb.) 2.5 mg INHALATION Q2H PRN PRN PRN Reason: Dyspnea, wheezing Aspirin (Aspirin 81 Mg Tab.Chew) 81 mg PO DAILY@0800 [facility] Last Admin: 07/24/20 08:21 Dose: 81 mg Documented by: Clotrimazole (Clotrimazole 1 Tube) 1 applicatio TOPICAL BID [facility]; Protocol Enoxaparin Sodium (Enoxaparin 40 Mg/0.4 Ml Syringe) 40 mg SC DAILY@0600 [facility] Guaifenesin (Guaifenesin 10 Ml Udc (200mg/10ml)) 20 ml PO Q4H PRN PRN PRN Reason: COUGH Last Admin: 07/24/20 03:35 Dose: 20 ml Documented by: Hydralazine HCl (Hydralazine 20 Mg/Ml Vial) 10 mg IV Q4H PRN PRN PRN Reason: SBP > 160 Sodium Chloride () 1,000 mls @ 100 mls/hr IV .Q10H [facility] Last Infusion: 07/24/20 15:38 Dose: 0 mls/hr Documented by: Ampicillin Sodium/Sulbactam (Sodium 3 gm/ Sodium Chloride) 112 mls @ 150 mls/hr IV Q8 [facility] Last Admin: 07/24/20 15:38 Dose: 150 mls/hr Documented by: Insulin Human Lispro (Insulin Lispro 100 Unit/Ml Insuln.Pen) 0 unit SC ACHS [facility]; Protocol Last Admin: 07/24/20 12:07 Dose: Not Given Documented by: Insulin Lispro Protam/Lispro Human (Insulin Human 75/25 [place]) 20 unit SC BREAKFAST [facility] Last Admin: 07/24/20 08:40 Dose: 20 u Documented by: Insulin Lispro Protam/Lispro Human (Insulin Human 75/25 [place]wick[place]) 10 unit SC DINNER [facility] Last Admin: 07/23/20 16:49 Dose: 10 u Documented by: Losartan Potassium (Losartan Potassium 25 Mg Tablet) 25 mg PO DAILY [facility] Last Admin: 07/24/20 08:21 Dose: 25 mg Documented by: Magnesium Chloride (Magnesium Chloride 64 Mg Delay Rel.Tablet) 128 mg PO BID [facility] Last Admin: 07/24/20 08:21 Dose: 128 mg Documented by: Magnesium Hydroxide (Magnesium Hydroxide 30 Ml Udc) 30 ml PO DAILY PRN PRN PRN Reason: Constipation Melatonin (Melatonin 3 Mg Tablet) 3 mg PO QHS PRN PRN PRN Reason: INSOMNIA Metoprolol Succinate (Metoprolol(Xl)Succ 25 Mg Tablet) 12.5 mg PO DAILY [facility] Last Admin: 07/24/20 08:22 Dose: 12.5 mg Documented by: Montelukast Sodium (Montelukast 10 Mg Tablet) 10 mg PO DAILY [facility] Last Admin: 07/24/20 08:22 Dose: 10 mg Documented by: Morphine Sulfate (Morphine 2 Mg/Ml Syringe) 2 mg IV Q3H PRN PRN PRN Reason: Pain Score 6-10 Nitroglycerin (Nitroglycerin (Inpatient Use) 0.4 Mg Tab.Subl) 0.4 mg SUBLINGUAL Q5M PRN PRN Reason: CARDIAC/CHEST PAIN Ondansetron HCl (Ondansetron 4 Mg/2 Ml Vial) 4 mg IV Q8H PRN PRN PRN Reason: NAUSEA/VOMITING Oxycodone HCl (Oxycodone 5 Mg Tablet) 5 mg PO Q4H PRN PRN PRN Reason: Pain Score 4-5 Pantoprazole Sodium (Pantoprazole Sodium 40 Mg Tablet) 40 mg PO DAILY [facility] Last Admin: 07/24/20 08:22 Dose: 40 mg Documented by: Prochlorperazine Edisylate (Prochlorperazine 10 Mg/2 Ml Vial) 5 mg IV Q4H PRN PRN PRN Reason: Breakthrough Nausea/Vomiting Psyllium Hydrophilic Mucilloid (Psyllium 1 Packet) 1 packet PO DAILY PRN PRN PRN Reason: Constipation Senna/Docusate Sodium (Senna/Docusate Sodium 1 Tablet) 2 tablet PO BID PRN PRN PRN Reason: Constipation Sodium Chloride (0.9% Saline Lock 10 Ml Syringe) 10 - 40 ml IV UD PRN PRN Reason: SALINE FLUSH Last Admin: 07/22/20 20:32 Dose: 10 ml Documented by: Throat Lozenges (Benzocaine/Menthol 1 Lozenge) 1 lozenge MUCOUS MEM Q2H PRN PRN PRN Reason: SORE THROAT Assessment/Plan All Active Problems (Last Reviewed 05/16/20 @ 13:29 by Seema REID, PA) Elevation of cardiac enzymes (Acute) Near syncope (Acute) 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 (Acute) 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 without evidence of necrosis (Acute) Elevated LFTs (Resolved) History of non-ST elevation myocardial infarction (NSTEMI) (Resolved 07/21/17) H/O coronary artery bypass surgery (Resolved 08/04/17) Pleural effusion (Resolved) Empyema of left pleural space (Ruled-out) Right hallux ulceration- suspected osteomyelitis right foot cellulitis PVD DM with neuropathy onychogryphosis Patient seen and examined Noted wound with surrounding callus tissue noted to right hallux Sharp excisional nonselective debridement of right hallux ulceration into the level of bone carried out with a #15 blade with sanguinous drainage noted. Removal of devitalized, slough, biofilm, fibrous, necrotic tissue. Tolerated due to neuropathy. Without incident. Predebridement measurements 1.5x2.5x0.1cm, post debridement measurements are 2x3x0.4cm. Right hallux and surrounding foot is erythematous and edematous Wound cultures taken. Follow results ESR/CRP/Hgb a1c ordered no leukocytosis noted LEAS ordered Patient noted to have LEAS done in February 2018 showing right GABBI of 0.39 and TBI of 0.35 and left GABBI 1.06 and TBI 0.53. DP and PT were biphasic bilaterally. Patient denies any intervention or following up with a vascular specialist MRI ordered to assess for OM as wound probed to bone Patient started on unasyn Discussed with the patient the potential for bone infection which may require long course of IV antibiotics, wound care, surgical debridement or amputation. Will discuss further with patient once LEAS, MRI, and blood work returns. Podiatry will continue to follow. Thank you for the consult. Please contact if any concerns
[2020-07-24 17:25] LABS: Bedside Glucose 148 mg/dL (70-110)
[2020-07-24 17:49] LABS: Hemoglobin A1c 5.9 % (3.8-5.6)
[2020-07-24] MEDS: Insulin Human 75/25 Kwickpen 10 UNIT SC (18:24)
--- NOTE | 2020-07-24 18:30 | RAD_ITS ---
STUDY: X-RAY - ORBITS REASON FOR EXAM: Male, 79 years old. PRE MRI. HX OF METAL TO EYE. TECHNIQUE: 2 view(s) of the orbits were obtained. COMPARISON: None. FINDINGS: Normal bilateral orbits without a metallic orbital foreign body. Normal visualized facial bones. Normal paranasal sinuses. The soft tissue structures are unremarkable. RAD/Orbits for Foreign Body IMPRESSION: No demonstrated metallic orbital foreign body. The patient is cleared for an MRI examination. Electronically Signed: Jacques Killian MD at 19:04 EST , Service support ,
[2020-07-24 18:41] LABS: Erythrocyte Sedimentation Rate 46 mm/hr (0-20)
[2020-07-24] MEDS: BENZOCAINE/MENTHOL 1 LOZENGE MUCOUS MEM (22:14)
[2020-07-24] MEDS: 0.9% Saline Lock 10 ML Syringe IV (22:19)
[2020-07-24 22:25] LABS: Bedside Glucose 139 mg/dL (70-110)
[2020-07-25] VITALS (12 sets, daily range): BP systolic 140–159; BP diastolic 71–88; PULSE 63–89; RESP 16–20; TEMP 36.6–37.2; O2SAT 94–99
[2020-07-25] MEDS: 0.9% Normal Saline 1,000 ML 100 ML IV ×2 (05:41→18:10)
[2020-07-25] MEDS: Enoxaparin 40 MG/0.4 ML Syringe SC (05:41)
[2020-07-25 08:21] LABS: Bedside Glucose 129 mg/dL (70-110)
--- NOTE | 2020-07-25 08:30 | BONBX_PTH ---
PATIENT: TATI MARIA LOC: [facility] U#:[id number] AGE/SX: 79/M ROOM: [facility] RE07/22/[address]: Dr. Fly Taylor MD : 1940 BED: 1 DIS: 07/31/2020 SPEC #: [id number] RECD: 07/25/20 08:39 STATUS: MAKENNA KERRY #: [id number] LAURENT: 07/25/20 08:[address]: Clarita Carbajal DEPT: SURGICAL PATHOLOGY RECD BY: Doug Gao ENTERED: 07/25/20 10:26 SP TYPE: Bone OTHR DR: MD Dr. Chloe Rhodes MD Dr. Eric Jopperi, DO Dr. Robert Leininger, MD Dr. Tu Cao, MD Tissues: Bone of foot, NOS Procedures: Decalcification bone/plaque Surgery Specimen Level IV HEADER OPERATION: Bone biopsy right distal phalanx, hallux PRE-OP DIAGNOSIS: Osteomyelitis, DM2 foot ulcer TISSUE SUBMITTED: Bone distal phalanx right hallux MICROSCOPIC DIAGNOSIS Bone, distal phalanx, right hallux, biopsy: Fibrocartilaginous tissue with microcalcifications. Minute fragment of bone with no pathologic change. No evidence of acute osteomyelitis. AM:tyler 07/26/20 MICROSCOPIC DESCRIPTION Slides are reviewed. GROSS DESCRIPTION Received in fixative is one container labeled with the patient's name and designated bone. The specimen consists of an irregular fragment of packer bone measuring 0.5 x 0.5 x 0.1 cm. The specimen is submitted in one cassette after light decalcification. / AM:tyler 07/25/20 TC:5 CPT: 00746, [id number]
--- NOTE | 2020-07-25 08:34 | PN_ITS ---
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 Patient denies any new pedal complaints. Patient denies nausea, fever, vomiting, chills, chest pain, shortness of breath, streaking, purulence - Physical Exam Vitals/I&O's: Vital Signs Temp Pulse Resp BP Pulse Ox 98 F 85 18 159/78 H 94 07/25/20 03:00 07/25/20 06:59 07/25/20 03:00 07/25/20 03:00 07/25/20 07:15 Oxygen Delivery Method Room Air Weight: 88.178 kg Body Mass Index (BMI) 24.6 Orthostatic Vital Signs Start: 07/22/20 22:54 Freq: q24h Status: Active Protocol: Activity Type Activity Date Activity User E-Sign Co-Sign Detail Recorded Client Recorded Date Recorded By Document 07/23/20 16:53 [id number] 07/23/20 16:54 07/23/20 16:53 Orthostatic Vitals Standing -Blood Pressure (90/60-120/80) 147/72 H -Pulse Rate (60-100) 86 Sitting -Blood Pressure (90/60-120/80) 151/72 H -Pulse Rate (60-100) 84 Lying -Blood Pressure (90/60-120/80) 145/86 H -Pulse Rate (60-100) 83 Intake and Output for Last 24 Hours 07/23/20 07/24/20 07/25/20 23:59 23:59 23:59 Intake Total 2876.66 / 2976.66 3864.00 / 3864.00 867 / 867 Output Total 700 / 775 675 / 675 100 / 100 Balance 2176.66 / 2201.66 3189.00 / 3189.00 767 / 767 General: Alert, Oriented x3 HEENT: Atraumatic Extremities: No cyanosis, Capillary Refill Less than 3 Seconds, No Calf Tenderness, Diminished Peripheral Pulses, Edema - right foot/toes, - - elongated, thickened, dystrophic, discolored nails [id number] bilateral Skin: Ulcer/ Wound - right plantar distal hallux ulceration to bone. Sanginous draiange with minimal purulent drainage. Surrounding erythema/edema. about 50% of plantar aspect of hallux distal phalanx exposed. Bone is soft. No malodor. Necrotic tissue present Musculoskeletal: Muscle Wasting, Tenderness - right hallux ulceration, mild Neurological: - - decreased epicritic sensation Psych/Mental Status: Normal Affect, Appropriate Microbiology Past 72 Hours 07/22/20 12:25 Blood Culture (Wb) - Left Hand Blood Culture - Preliminary No growth in 48 hours. 07/22/20 12:23 Blood Culture (Wb) - Left Forearm Blood Culture - Preliminary No growth in 48 hours. 07/22/20 19:25 Mucosa - Nasopharyngeal Respiratory Panel (PCR) - Final 07/22/20 12:39 Mucosa - Nose SARS-CoV-2 Antigen (Rapid) - Final Laboratory Results 07/24/20 05:20: C-React Prot Ext Range 97.60 H 07/24/20 05:20: Hemoglobin A1c 5.9 H 07/24/20 11:43: POC Glucose 111 H 07/24/20 17:15: POC Glucose 148 H 07/24/20 17:45: ESR 46 H 07/24/20 22:12: POC Glucose 139 H 07/25/20 08:10: POC Glucose 129 H Current Medications Acetaminophen (Acetaminophen 325 Mg Tablet) 650 mg PO Q6H PRN PRN PRN Reason: Pain Score 1-10/Temp > 100.7 F Al Hydroxide/Mg Hydroxide (Mag Hydrox/Al Hydrox/Simeth 30 Ml Udc) 30 ml PO Q6H PRN PRN PRN Reason: Gastric Burning Albuterol Sulfate (Albuterol 2.5 Mg/3 Ml Vial.Neb.) 2.5 mg INHALATION Q2H PRN PRN PRN Reason: Dyspnea, wheezing Aspirin (Aspirin 81 Mg Tab.Chew) 81 mg PO DAILY@0800 [facility] Last Admin: 07/24/20 08:21 Dose: 81 mg Documented by: Clotrimazole (Clotrimazole 1 Tube) 1 applicatio TOPICAL BID [facility]; Protocol Last Admin: 07/25/20 07:26 Dose: 1 applicatio Documented by: Enoxaparin Sodium (Enoxaparin 40 Mg/0.4 Ml Syringe) 40 mg SC DAILY@0600 [facility] Last Admin: 07/25/20 05:41 Dose: 40 mg Documented by: Guaifenesin (Guaifenesin 10 Ml Udc (200mg/10ml)) 20 ml PO Q4H PRN PRN PRN Reason: COUGH Last Admin: 07/24/20 03:35 Dose: 20 ml Documented by: Hydralazine HCl (Hydralazine 20 Mg/Ml Vial) 10 mg IV Q4H PRN PRN PRN Reason: SBP > 160 Sodium Chloride () 1,000 mls @ 100 mls/hr IV .Q10H [facility] Last Infusion: 07/25/20 06:26 Dose: 100 mls/hr Documented by: Ampicillin Sodium/Sulbactam (Sodium 3 gm/ Sodium Chloride) 112 mls @ 150 mls/hr IV Q8 [facility] Last Infusion: 07/25/20 06:26 Dose: Infused Documented by: Insulin Human Lispro (Insulin Lispro 100 Unit/Ml Insuln.Pen) 0 unit SC ACHS [facility]; Protocol Last Admin: 07/24/20 22:14 Dose: Not Given Documented by: Insulin Lispro Protam/Lispro Human (Insulin Human 75/25 [place]) 20 unit SC BREAKFAST [facility] Last Admin: 07/24/20 08:40 Dose: 20 u Documented by: Insulin Lispro Protam/Lispro Human (Insulin Human 75/25 [place]) 10 unit SC DINNER [facility] Last Admin: 07/24/20 18:24 Dose: 10 u Documented by: Losartan Potassium (Losartan Potassium 25 Mg Tablet) 25 mg PO DAILY [facility] Last Admin: 07/24/20 08:21 Dose: 25 mg Documented by: Magnesium Chloride (Magnesium Chloride 64 Mg Delay Rel.Tablet) 128 mg PO BID [facility] Last Admin: 07/24/20 22:14 Dose: 128 mg Documented by: Magnesium Hydroxide (Magnesium Hydroxide 30 Ml Udc) 30 ml PO DAILY PRN PRN PRN Reason: Constipation Melatonin (Melatonin 3 Mg Tablet) 3 mg PO QHS PRN PRN PRN Reason: INSOMNIA Metoprolol Succinate (Metoprolol(Xl)Succ 25 Mg Tablet) 12.5 mg PO DAILY [facility] Last Admin: 07/24/20 08:22 Dose: 12.5 mg Documented by: Montelukast Sodium (Montelukast 10 Mg Tablet) 10 mg PO DAILY [facility] Last Admin: 07/24/20 08:22 Dose: 10 mg Documented by: Nitroglycerin (Nitroglycerin (Inpatient Use) 0.4 Mg Tab.Subl) 0.4 mg SUBLINGUAL Q5M PRN PRN Reason: CARDIAC/CHEST PAIN Ondansetron HCl (Ondansetron 4 Mg/2 Ml Vial) 4 mg IV Q8H PRN PRN PRN Reason: NAUSEA/VOMITING Oxycodone HCl (Oxycodone 5 Mg Tablet) 5 mg PO Q4H PRN PRN PRN Reason: Pain Score 4-5 Pantoprazole Sodium (Pantoprazole Sodium 40 Mg Tablet) 40 mg PO DAILY [facility] Last Admin: 07/24/20 08:22 Dose: 40 mg Documented by: Prochlorperazine Edisylate (Prochlorperazine 10 Mg/2 Ml Vial) 5 mg IV Q4H PRN PRN PRN Reason: Breakthrough Nausea/Vomiting Psyllium Hydrophilic Mucilloid (Psyllium 1 Packet) 1 packet PO DAILY PRN PRN PRN Reason: Constipation Senna/Docusate Sodium (Senna/Docusate Sodium 1 Tablet) 2 tablet PO BID PRN PRN PRN Reason: Constipation Sodium Chloride (0.9% Saline Lock 10 Ml Syringe) 10 - 40 ml IV UD PRN PRN Reason: SALINE FLUSH Last Admin: 07/24/20 22:19 Dose: 10 ml Documented by: Throat Lozenges (Benzocaine/Menthol 1 Lozenge) 1 lozenge MUCOUS MEM Q2H PRN PRN PRN Reason: SORE THROAT Last Admin: 07/24/20 22:14 Dose: 1 lozenge Documented by: Medical Necessity - Tobacco Use Smoking Status: Never smoker Tobacco Use: Non-smoker Assessment/Plan All Active Problems (Last Reviewed 05/16/20 @ 13:29 by Seema REID, PA) Elevation of cardiac enzymes (Acute) Near syncope (Acute) 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 Follow results Bone biopsy taken. Follow results Some pus noted from wound site today with necrotic tissue and bone exposed Continue daily dressing changes with aquacel silver covered by DSD. Patient has noted muscle weakness. Try to not put weight through right hallux. Discussed this with PT and realize that due to patient's high fall risk this may not be feasible. Patient is aware of this and knows that putting weight through toe will slow wound healing. ESR 46, CRP 97.6, Hgb a1c 5.9 no leukocytosis noted Patient started on unasyn New LEAS ordered, will follow results Patient noted to have LEAS done in February 2018 showing right GABBI of 0.39 and TBI of 0.35 and left GABBI 1.06 and TBI 0.53. DP and PT were biphasic bilaterally. Patient denies any intervention or following up with a vascular specialist MRI showed suspicion for OM as well as possible fracture to the distal phalanx of hallux. Discussed with the patient at length the results of the MRI showing likely bone infection. Also discussed that clinically about 50% of the plantar aspect of the distal phalanx is visible through the wound defect which is highly suspicious for bone infection. Discussed his lab results as well. Discussed options including long course of IV antibiotics, wound care, surgical debridement or amputation in depth with the patient. Discussed that due to the amount of bone exposed and how soft the bone is that I believe the bone is infected and that any wound care options would take months to try to get this to heal. Discussed my recommendation would be an amputation especially as patient has some contraction to his hallux which would predispose him to future ulcerations in this area. Patient would like to try to save the toe and would like to try wound care with IV antibiotics. Patient would also like to discuss this with family. If he changes his mind patient instructed to let his nurse know who can let the rest of his care team know. All questions answered. Recommend ID consult for management of IV antibiotics outpatient Bedside bone biopsy was taken through ulceration site. This was done after verbal consent was obtained by the patient. A sample of bone was obtained and sent to both pathology and microbiology with tissue nippers. This was well tolerated due to patient's neuropathy. Good healthy bleeding was noted. Distal phalanx bone of the hallux was soft. [place]brided[place] [address] bilateral toenails, manually with a nail nipper, nail nippers were angled to reduce height as well. This was done without incident. Follow up in 2-3 months, sooner if needed. This is medically necessary due to neuropathy findings, and performance of this service by a nonprofessional person would put the patient at risk. Podiatry will continue to follow. Patient to follow up with Dr Carbajal at wound care center at [place] in 1 week Please contact if any concerns
--- NOTE | 2020-07-25 09:07 | CASEMGMT ---
Addendum entered by Luz Lindsay 07/25/20 10:09: Referral sent to [facility]. KALYN Dubois Original Note: SW met w/pt in regard to going home vs going to a group home at discharge. Pt states he wants to go home and feels he can manage at home. Pt states he only needs to get himself breakfast, go to his chair to watch TV, and get to bed. Pt feels he can manage this on his own. SW asked if his children would be able to stay w/him for a few days after discharge, as he is needing minimal assist to get up. Pt states he can get up on his own, just needs to take his time. Pt states he will speak to his children today to see what they think. SW offered to call pt's children, he states he will call them. He states his son helps him w/finances. Pt did state that [facility] is close to where he lives, did give SW permission to call and check on bed availability. Pt states also that he is concerned about getting COVID in a group home. SW explained we can call [facility] and at least check on beds, pt agreeable to this. SW explained will check back with him later today after he talks to his children. Pt now asking to get back to bed, aide to room to assist pt. SW called [facility], they may have beds available. SW will send an initial referral. KALYN Dubois
[2020-07-25] MEDS: Aspirin 81 MG TAB.CHEW PO (10:15)
[2020-07-25] MEDS: Insulin Human 75/25 Kwickpen 20 UNIT SC (10:16)
[2020-07-25] MEDS: Losartan Potassium 25 MG Tablet PO (10:17)
[2020-07-25] MEDS: Metoprolol(XL)Succ 25 MG Tablet 12.5 MG PO (10:17)
[2020-07-25] MEDS: Magnesium Chloride 64 MG Delay Rel.Tablet 128 MG PO (10:17)
[2020-07-25] MEDS: Montelukast 10 MG Tablet PO (10:17)
[2020-07-25] MEDS: Pantoprazole Sodium 40 MG Tablet PO (10:17)
[2020-07-25] MEDS: Insulin Lispro 100 UNIT/ML INSULN.PEN SC (12:00)
[2020-07-25 12:51] LABS: Bedside Glucose 167 mg/dL (70-110)
--- NOTE | 2020-07-25 13:10 | PCM.PN.HOSP ---
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 Pt underwent bedside debridement with podiatry today down to the bone with no sensation in the affected area. No fever/chills. No CP, pressure, tightness, SOB, or LH Vitals/I&O's: Vital Signs Temp Pulse Resp BP Pulse Ox 98.1 F 79 18 140/71 H 98 07/25/20 09:00 07/25/20 10:17 07/25/20 09:00 07/25/20 10:17 07/25/20 09:00 Oxygen Delivery Method Room Air Weight: 194 lb 6.4 oz Body Mass Index (BMI) 24.6 Orthostatic Vital Signs Start: 07/22/20 22:54 Freq: q24h Status: Active Protocol: Activity Type Activity Date Activity User E-Sign Co-Sign Detail Recorded Client Recorded Date Recorded By Document 07/23/20 16:53 [id number] 07/23/20 16:54 07/23/20 16:53 Orthostatic Vitals Standing -Blood Pressure (90/60-120/80) 147/72 H -Pulse Rate (60-100) 86 Sitting -Blood Pressure (90/60-120/80) 151/72 H -Pulse Rate (60-100) 84 Lying -Blood Pressure (90/60-120/80) 145/86 H -Pulse Rate (60-100) 83 Intake and Output for Last 24 Hours 07/23/20 07/24/20 07/25/20 23:59 23:59 23:59 Intake Total 2876.66 / 2976.66 3864.00 / 3864.00 867 / 867 Output Total 700 / 775 675 / 675 100 / 100 Balance 2176.66 / 2201.66 3189.00 / 3189.00 767 / 767 General: Alert, Oriented x3, Cooperative HEENT: Atraumatic, PERRLA, EOMI, Normocephalic Neck: Supple, No JVD, Negative Carotid Bruits Lungs: Clear to auscultation, Normal air movement Cardiovascular: Regular rate, No murmurs Abdomen: Bowel Sounds Present, Soft, Non Tender Extremities: No edema, Capillary Refill Less than 3 Seconds Skin: No rashes, No breakdown Musculoskeletal: No Tenderness to Palpation of Joints or Extremities Neurological: Cranial nerves II-XII grossly intact Psych/Mental Status: Normal Affect, Appropriate, Alert and oriented to time, place, person, mood and affect Microbiology Past 72 Hours 07/25/20 08:30 Other - Toe Gram Stain - Final 07/24/20 16:50 Wound - Toe Gram Stain - Final 07/24/20 16:50 Wound - Toe Wound Culture - Preliminary Staphylococcus aureus 07/22/20 12:25 Blood Culture (Wb) - Left Hand Blood Culture - Preliminary No growth in 48 hours. 07/22/20 12:23 Blood Culture (Wb) - Left Forearm Blood Culture - Preliminary No growth in 48 hours. 07/22/20 19:25 Mucosa - Nasopharyngeal Respiratory Panel (PCR) - Final 07/22/20 12:39 Mucosa - Nose SARS-CoV-2 Antigen (Rapid) - Final Laboratory Results 07/24/20 05:20: C-React Prot Ext Range 97.60 H 07/24/20 05:20: Hemoglobin A1c 5.9 H 07/24/20 17:15: POC Glucose 148 H 07/24/20 17:45: ESR 46 H 07/24/20 22:12: POC Glucose 139 H 07/25/20 08:10: POC Glucose 129 H 07/25/20 11:58: POC Glucose 167 H Current Medications Acetaminophen (Acetaminophen 325 Mg Tablet) 650 mg PO Q6H PRN PRN PRN Reason: Pain Score 1-10/Temp > 100.7 F Al Hydroxide/Mg Hydroxide (Mag Hydrox/Al Hydrox/Simeth 30 Ml Udc) 30 ml PO Q6H PRN PRN PRN Reason: Gastric Burning Albuterol Sulfate (Albuterol 2.5 Mg/3 Ml Vial.Neb.) 2.5 mg INHALATION Q2H PRN PRN PRN Reason: Dyspnea, wheezing Aspirin (Aspirin 81 Mg Tab.Chew) 81 mg PO DAILY@0800 JOSIE Last Admin: 07/25/20 10:15 Dose: 81 mg Documented by: Clotrimazole (Clotrimazole 1 Tube) 1 applicatio TOPICAL BID [facility]; Protocol Last Admin: 07/25/20 07:26 Dose: 1 applicatio Documented by: Enoxaparin Sodium (Enoxaparin 40 Mg/0.4 Ml Syringe) 40 mg SC DAILY@0600 [facility] Last Admin: 07/25/20 05:41 Dose: 40 mg Documented by: Guaifenesin (Guaifenesin 10 Ml Udc (200mg/10ml)) 20 ml PO Q4H PRN PRN PRN Reason: COUGH Last Admin: 07/24/20 03:35 Dose: 20 ml Documented by: Hydralazine HCl (Hydralazine 20 Mg/Ml Vial) 10 mg IV Q4H PRN PRN PRN Reason: SBP > 160 Sodium Chloride () 1,000 mls @ 100 mls/hr IV .Q10H [facility] Last Infusion: 07/25/20 06:26 Dose: 100 mls/hr Documented by: Ampicillin Sodium/Sulbactam (Sodium 3 gm/ Sodium Chloride) 112 mls @ 150 mls/hr IV Q8 [facility] Last Infusion: 07/25/20 06:26 Dose: Infused Documented by: Insulin Human Lispro (Insulin Lispro 100 Unit/Ml Insuln.Pen) 0 unit SC ACHS [facility]; Protocol Last Admin: 07/25/20 12:00 Dose: 1 u Documented by: Insulin Lispro Protam/Lispro Human (Insulin Human 75/25 [place]) 20 unit SC BREAKFAST [facility] Last Admin: 07/25/20 10:16 Dose: 20 u Documented by: Insulin Lispro Protam/Lispro Human (Insulin Human 75/25 [place]) 10 unit SC DINNER [facility] Last Admin: 07/24/20 18:24 Dose: 10 u Documented by: Losartan Potassium (Losartan Potassium 25 Mg Tablet) 25 mg PO DAILY [facility] Last Admin: 07/25/20 10:17 Dose: 25 mg Documented by: Magnesium Chloride (Magnesium Chloride 64 Mg Delay Rel.Tablet) 128 mg PO BID [facility] Last Admin: 07/25/20 10:17 Dose: 128 mg Documented by: Magnesium Hydroxide (Magnesium Hydroxide 30 Ml Udc) 30 ml PO DAILY PRN PRN PRN Reason: Constipation Melatonin (Melatonin 3 Mg Tablet) 3 mg PO QHS PRN PRN PRN Reason: INSOMNIA Metoprolol Succinate (Metoprolol(Xl)Succ 25 Mg Tablet) 12.5 mg PO DAILY [facility] Last Admin: 07/25/20 10:17 Dose: 12.5 mg Documented by: Montelukast Sodium (Montelukast 10 Mg Tablet) 10 mg PO DAILY [facility] Last Admin: 07/25/20 10:17 Dose: 10 mg Documented by: Nitroglycerin (Nitroglycerin (Inpatient Use) 0.4 Mg Tab.Subl) 0.4 mg SUBLINGUAL Q5M PRN PRN Reason: CARDIAC/CHEST PAIN Ondansetron HCl (Ondansetron 4 Mg/2 Ml Vial) 4 mg IV Q8H PRN PRN PRN Reason: NAUSEA/VOMITING Oxycodone HCl (Oxycodone 5 Mg Tablet) 5 mg PO Q4H PRN PRN PRN Reason: Pain Score 4-5 Pantoprazole Sodium (Pantoprazole Sodium 40 Mg Tablet) 40 mg PO DAILY [facility] Last Admin: 07/25/20 10:17 Dose: 40 mg Documented by: Prochlorperazine Edisylate (Prochlorperazine 10 Mg/2 Ml Vial) 5 mg IV Q4H PRN PRN PRN Reason: Breakthrough Nausea/Vomiting Psyllium Hydrophilic Mucilloid (Psyllium 1 Packet) 1 packet PO DAILY PRN PRN PRN Reason: Constipation Senna/Docusate Sodium (Senna/Docusate Sodium 1 Tablet) 2 tablet PO BID PRN PRN PRN Reason: Constipation Sodium Chloride (0.9% Saline Lock 10 Ml Syringe) 10 - 40 ml IV UD PRN PRN Reason: SALINE FLUSH Last Admin: 07/24/20 22:19 Dose: 10 ml Documented by: Throat Lozenges (Benzocaine/Menthol 1 Lozenge) 1 lozenge MUCOUS MEM Q2H PRN PRN PRN Reason: SORE THROAT Last Admin: 07/24/20 22:14 Dose: 1 lozenge Documented by: STROKE Vital Signs/Narrative: Vital Signs Pulse BP 07/25/20 10:17 79 140/71 H Medical Necessity - Tobacco Use Smoking Status: Never smoker Tobacco Use: Non-smoker Assessment/Plan All Active Problems (Last Reviewed 05/16/20 @ 13:29 by Seema REID, PA) Elevation of cardiac enzymes (Acute) Near syncope (Acute) 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 Near syncope vs generalized weakness - this does not appear to have been syncope/near syncope but rather generalized workup. acute cardiac workup thus far negative. 2. Abnormal trop - as above. no further workup at this time. follow up as outpatient with cardiology. 3. Right great toe osteomyelitis - debrided per podiatry. Culture shows staph. No hx MRSA. Continue unasyn while culture pending. infectious disease consulted for [facility] abx management. 4. Suspected parkinsons - masked facies, weakness, soft voice. Recommend neuro follow up. PTOT evals. 5. Hx CAD with prior CABG - continue home meds. 6. Chronic Systolic CHF/ischemic CM - no acute process at this time. Chronic pleural effusion. EF 25%. 7. DMt2 - continue home insulin regimen. 8. hx CVA - asp/statin DVT ppx: Lovenox DC planning: PTOT evals. Pt weak but wants to go home. [facility]. No driving at [place]. This patient was seen by John Sierra PA-C under the supervision of Dr Ledezma <Yosi Ledezma - Last Filed: 07/25/20 13:23> Vitals/I&O's: Vital Signs Temp Pulse Resp BP Pulse Ox 36.7 C 79 18 140/71 H 98 07/25/20 09:00 07/25/20 10:17 07/25/20 09:00 07/25/20 10:17 07/25/20 09:00 Oxygen Delivery Method Room Air Weight: 88.178 kg Body Mass Index (BMI) 24.6 Orthostatic Vital Signs Start: 07/22/20 22:54 Freq: q24h Status: Active Protocol: Activity Type Activity Date Activity User E-Sign Co-Sign Detail Recorded Client Recorded Date Recorded By Document 07/23/20 16:53 [id number] 07/23/20 16:54 07/23/20 16:53 Orthostatic Vitals Standing -Blood Pressure (90/60-120/80) 147/72 H -Pulse Rate (60-100) 86 Sitting -Blood Pressure (90/60-120/80) 151/72 H -Pulse Rate (60-100) 84 Lying -Blood Pressure (90/60-120/80) 145/86 H -Pulse Rate (60-100) 83 Intake and Output for Last 24 Hours 07/23/20 07/24/20 07/25/20 23:59 23:59 23:59 Intake Total 2876.66 / 2976.66 3864.00 / 3864.00 1267 / 1267 Output Total 700 / 775 675 / 675 100 / 100 Balance 2176.66 / 2201.66 3189.00 / 3189.00 1167 / 1167 General: Alert, Cooperative HEENT: Atraumatic, Normocephalic Lungs: Clear to auscultation, Normal air movement Cardiovascular: Regular rate, No murmurs Abdomen: Bowel Sounds Present, Soft, Non Tender Skin: No rashes, No breakdown Microbiology Past 72 Hours 07/25/20 08:30 Other - Toe Gram Stain - Final 07/24/20 16:50 Wound - Toe Gram Stain - Final 07/24/20 16:50 Wound - Toe Wound Culture - Preliminary Staphylococcus aureus 07/22/20 12:25 Blood Culture (Wb) - Left Hand Blood Culture - Preliminary No growth in 48 hours. 07/22/20 12:23 Blood Culture (Wb) - Left Forearm Blood Culture - Preliminary No growth in 48 hours. 07/22/20 19:25 Mucosa - Nasopharyngeal Respiratory Panel (PCR) - Final 07/22/20 12:39 Mucosa - Nose SARS-CoV-2 Antigen (Rapid) - Final Laboratory Results 07/24/20 05:20: C-React Prot Ext Range 97.60 H 07/24/20 05:20: Hemoglobin A1c 5.9 H 07/24/20 17:15: POC Glucose 148 H 07/24/20 17:45: ESR 46 H 07/24/20 22:12: POC Glucose 139 H 07/25/20 08:10: POC Glucose 129 H 07/25/20 11:58: POC Glucose 167 H Current Medications Acetaminophen (Acetaminophen 325 Mg Tablet) 650 mg PO Q6H PRN PRN PRN Reason: Pain Score 1-10/Temp > 100.7 F Al Hydroxide/Mg Hydroxide (Mag Hydrox/Al Hydrox/Simeth 30 Ml Udc) 30 ml PO Q6H PRN PRN PRN Reason: Gastric Burning Albuterol Sulfate (Albuterol 2.5 Mg/3 Ml Vial.Neb.) 2.5 mg INHALATION Q2H PRN PRN PRN Reason: Dyspnea, wheezing Aspirin (Aspirin 81 Mg Tab.Chew) 81 mg PO DAILY@0800 [facility] Last Admin: 07/25/20 10:15 Dose: 81 mg Documented by: Clotrimazole (Clotrimazole 1 Tube) 1 applicatio TOPICAL BID [facility]; Protocol Last Admin: 07/25/20 07:26 Dose: 1 applicatio Documented by: Enoxaparin Sodium (Enoxaparin 40 Mg/0.4 Ml Syringe) 40 mg SC DAILY@0600 [facility] Last Admin: 07/25/20 05:41 Dose: 40 mg Documented by: Guaifenesin (Guaifenesin 10 Ml Udc (200mg/10ml)) 20 ml PO Q4H PRN PRN PRN Reason: COUGH Last Admin: 07/24/20 03:35 Dose: 20 ml Documented by: Hydralazine HCl (Hydralazine 20 Mg/Ml Vial) 10 mg IV Q4H PRN PRN PRN Reason: SBP > 160 Sodium Chloride () 1,000 mls @ 100 mls/hr IV .Q10H [facility] Last Infusion: 07/25/20 06:26 Dose: 100 mls/hr Documented by: Ampicillin Sodium/Sulbactam (Sodium 3 gm/ Sodium Chloride) 112 mls @ 150 mls/hr IV Q8 [facility] Last Infusion: 07/25/20 06:26 Dose: Infused Documented by: Vancomycin IV Pharmacy to Dose (1 ea/ Sodium Chloride) 500 mls @ 250 mls/hr IV X1 PRN; Protocol PRN Reason: Rx to Dose Insulin Human Lispro (Insulin Lispro 100 Unit/Ml Insuln.Pen) 0 unit SC ACHS [facility]; Protocol Last Admin: 07/25/20 12:00 Dose: 1 u Documented by: Insulin Lispro Protam/Lispro Human (Insulin Human 75/25 [place]) 20 unit SC BREAKFAST [facility] Last Admin: 07/25/20 10:16 Dose: 20 u Documented by: Insulin Lispro Protam/Lispro Human (Insulin Human 75/25 [place]) 10 unit SC DINNER [facility] Last Admin: 07/24/20 18:24 Dose: 10 u Documented by: Losartan Potassium (Losartan Potassium 25 Mg Tablet) 25 mg PO DAILY [facility] Last Admin: 07/25/20 10:17 Dose: 25 mg Documented by: Magnesium Chloride (Magnesium Chloride 64 Mg Delay Rel.Tablet) 128 mg PO BID [facility] Last Admin: 07/25/20 10:17 Dose: 128 mg Documented by: Magnesium Hydroxide (Magnesium Hydroxide 30 Ml Udc) 30 ml PO DAILY PRN PRN PRN Reason: Constipation Melatonin (Melatonin 3 Mg Tablet) 3 mg PO QHS PRN PRN PRN Reason: INSOMNIA Metoprolol Succinate (Metoprolol(Xl)Succ 25 Mg Tablet) 12.5 mg PO DAILY [facility] Last Admin: 07/25/20 10:17 Dose: 12.5 mg Documented by: Montelukast Sodium (Montelukast 10 Mg Tablet) 10 mg PO DAILY [facility] Last Admin: 07/25/20 10:17 Dose: 10 mg Documented by: Nitroglycerin (Nitroglycerin (Inpatient Use) 0.4 Mg Tab.Subl) 0.4 mg SUBLINGUAL Q5M PRN PRN Reason: CARDIAC/CHEST PAIN Ondansetron HCl (Ondansetron 4 Mg/2 Ml Vial) 4 mg IV Q8H PRN PRN PRN Reason: NAUSEA/VOMITING Oxycodone HCl (Oxycodone 5 Mg Tablet) 5 mg PO Q4H PRN PRN PRN Reason: Pain Score 4-5 Pantoprazole Sodium (Pantoprazole Sodium 40 Mg Tablet) 40 mg PO DAILY [facility] Last Admin: 07/25/20 10:17 Dose: 40 mg Documented by: Prochlorperazine Edisylate (Prochlorperazine 10 Mg/2 Ml Vial) 5 mg IV Q4H PRN PRN PRN Reason: Breakthrough Nausea/Vomiting Psyllium Hydrophilic Mucilloid (Psyllium 1 Packet) 1 packet PO DAILY PRN PRN PRN Reason: Constipation Senna/Docusate Sodium (Senna/Docusate Sodium 1 Tablet) 2 tablet PO BID PRN PRN PRN Reason: Constipation Sodium Chloride (0.9% Saline Lock 10 Ml Syringe) 10 - 40 ml IV UD PRN PRN Reason: SALINE FLUSH Last Admin: 07/24/20 22:19 Dose: 10 ml Documented by: Throat Lozenges (Benzocaine/Menthol 1 Lozenge) 1 lozenge MUCOUS MEM Q2H PRN PRN PRN Reason: SORE THROAT Last Admin: 07/24/20 22:14 Dose: 1 lozenge Documented by: STROKE Vital Signs/Narrative: Vital Signs Pulse BP 07/25/20 10:17 79 140/71 H Assessment/Plan 1. NSTEMI: peak troponin 0.161 stress test negative for acute ischemia likely type 2 follow up echo cardiology following. 2. failure to thrive suspect patient has an underlying neurodegenerative disorder (parkinson's, PSP, MSA). Pt dismissive to the prospect, however, pt w impaired vertical saccades, masked facies, hypophonia PT recommends additional therapy, max assistance with walking pt lives by himself Had a long conversation about the patient's weakness and his falls. As mentioned earlier, patient was dismissive of disclaims though he does endorse that he falls but states that he has family history of falls regards to his father and uncles and so forth. Explained that if he falls another time by going home that he could potentially fracture something such as a hip from his back worse have some more severe injury. And also expressed concern about his reaction time being potentially impaired and I did advise that he hold off on driving until he is a former geriatric driving assessment to see if his reaction time is appropriate enough to drive safely. Patient expressed no interest in doing that. I told them that given his overall debility that he is at higher risk of causing an accident because his reaction time may be impaired though no fault of his own. I did tell him that if he were to cause any accident or injury that he could be personally liable for injuries potentially sustained. I did tell him this several times. The told him that if he were to cause an accident appeared to be deposed that he should answer honestly if he was ever told that he should not drive. 3. Right great toe cellulitis and OM: Likely from the large callus that he has Started on ampicillin/sulbactam Check culture Likely from him wearing tight fitting shoes Patient preferring to salvage his toe continue with IV antibiotics. Infectious disease on consultation to help facilitate course and length of antibiotics. Wound culture growing out staph aureus. On vancomycin Inpatient E&M: 49747 Subs Hosp L2
--- NOTE | 2020-07-25 14:12 | CASEMGMT ---
SW spoke w/Tanya from [facility]. They may be able to take pt, it will depend on what, if any, IV antibiotics are needed. Also, he will need a negative COVID test. SW spoke w/pt again about discharge plan. He states he has not spoken with his children about the discharge plan as they have not been in to see him. SW asked pt again about how going home would work as he will need dressing changes and possibly IV antibiotics. Pt still stating he thinks he can go home, states he was taught how to do the dressing change and he goes to the wound center. Pt explained he needs to know the timeline to make a decision. SW explained that we are waiting for cultures from his foot and for the infectious disease doctor to see him, in regard to what type of antibiotics pt will need. Pt again stated he needs to know the timeline. SW again reiterated that we are waiting for cultures and the other doctor to see him. SW did let pt know that [facility] may be able to take him if needed. SW will continue to follow, will follow up w/pt again in regard to discharge plan. KALYN Dubois
[2020-07-25 14:56] LABS: Magnesium 1.5 mg/dL (1.6-2.6)
[2020-07-25 15:06] LABS: Anion Gap 3 (5-15); BUN 16 mg/dL (7-18); BUN/Creat Ratio 16.6 RATIO (10-20); Calcium,Total 8.2 mg/dL (8.5-10.1); Chloride 109 mmol/L (98-107); Creatinine, Serum 0.97 mg/dL (0.70-1.30); EST Glomerular Filtration Rate 80 mL/min (>60); Est Glom Filt Rate - Afr Amer 97 mL/min (>60); Estimated Creatinine Clearance 68.89 ml/min; Glucose 168 mg/dL (74-106); Potassium 3.9 mmol/L (3.5-5.1); Sodium Level 138 mmol/L (136-145)
--- NOTE | 2020-07-25 15:20 | NURSING ---
wound photo: right great toe
--- NOTE | 2020-07-25 16:03 | PCM.HP.ID ---
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 Ledezma History of Present Illness: The patient is a 79 year old M with DM, PVD, presented with several weeks of R 1st toe swelling, pain, redness, drainage. No inciting event. No fever, no outpt abx. Denies any neuropathy or issues with blood flow. Lives by himself. MRI done. Seen by podiatry, bone biopsy done at bedside without anaesthesia. On unasyn. Full ROS performed and neg except as noted above. - Medical History Past Medical History (Chronic Problems): Chronic Problems (Last Reviewed 05/16/20 @ 13:29 by Seema Yanes PA, PA) CAD (coronary artery disease) (Chronic) Pleural effusion on left (Chronic) loculated per CT Chest 07/2019 thoracentesis 07/2019 Mass of right lung (Chronic) bronchoscopy 07/2019 Old inferior wall myocardial infarction (Chronic) Atherosclerotic heart disease of hoh coronary artery without angina pectoris (Chronic) Ischemic cardiomyopathy (Chronic) History of CVA (cerebrovascular accident) (Chronic 07/2017) Right bundle branch block (RBBB) (Chronic) Carotid artery stenosis (Chronic) R CEA 2018 Essential (primary) hypertension (Chronic) Claudication of both lower extremities (Chronic) Peripheral vascular occlusive disease (Chronic) RLE Allergies/Adverse Reactions: Allergies Tatbhsj-Dns-Tjd Reductase Inhibitor Adverse Reaction (Severe, Verified 07/22/20 12:09) mylagias lisinopril Adverse Reaction (Verified 07/22/20 12:09) cough Home Medications: Ambulatory Orders Medication Instructions Recorded insulin human U-100 NPH-regulr 12 unit SC .COMPLEX 11/18/17 70-30 mix 100 unit/mL subcutaneous susp ascorbic acid (vitamin C) 1,000 mg 1 g PO DAILY tab 11/15/19 tablet aspirin 81 mg tablet,delayed 81 mg PO DAILY 11/15/19 release chromium picolinate 1,000 mcg 1,000 mcg PO DAILY 11/15/19 tablet coenzyme Q10 200 mg capsule 200 mg PO DAILY 11/15/19 dandelion 500 mg capsule 500 mg PO DAILY cap 11/15/19 grape seed extract 50 mg capsule 50 mg PO DAILY cap 11/15/19 pantoprazole 40 mg tablet,delayed 40 mg PO DAILY tab 11/15/19 release losartan 25 mg tablet 25 mg PO DAILY #30 tab 05/16/20 montelukast 10 mg tablet 10 mg PO DAILY 05/16/20 - Social History Tobacco Use: non-smoker Vital Signs Temp Pulse Resp BP Pulse Ox 98.1 F 81 18 140/71 H 98 07/25/20 09:00 07/25/20 14:02 07/25/20 09:00 07/25/20 10:17 07/25/20 09:00 Oxygen Delivery Method Room Air Weight: 88.178 kg Body Mass Index (BMI) 24.6 Orthostatic Vital Signs Start: 07/22/20 22:54 Freq: q24h Status: Active Protocol: Activity Type Activity Date Activity User E-Sign Co-Sign Detail Recorded Client Recorded Date Recorded By Document 07/23/20 16:53 [id number] 07/23/20 16:54 07/23/20 16:53 Orthostatic Vitals Standing -Blood Pressure (90/60-120/80) 147/72 H -Pulse Rate (60-100) 86 Sitting -Blood Pressure (90/60-120/80) 151/72 H -Pulse Rate (60-100) 84 Lying -Blood Pressure (90/60-120/80) 145/86 H -Pulse Rate (60-100) 83 Microbiology Past 72 Hours 07/25/20 08:30 Gram Stain - Final Other - Toe 07/24/20 16:50 Gram Stain - Final Wound - Toe Wound Culture - Preliminary Staphylococcus aureus 07/22/20 12:25 Blood Culture - Preliminary Blood Culture (Wb) - Left Hand No growth in 48 hours. 07/22/20 12:23 Blood Culture - Preliminary Blood Culture (Wb) - Left Forearm No growth in 48 hours. 07/22/20 19:25 Respiratory Panel (PCR) - Final Mucosa - Nasopharyngeal 07/22/20 12:39 SARS-CoV-2 Antigen (Rapid) - Final Mucosa - Nose Laboratory Tests Past 24 Hrs 07/24/20 07/24/20 07/24/20 05:20 05:20 17:45 ESR 46 H Sodium Potassium Chloride Carbon Dioxide Anion Gap BUN Creatinine Estim Creat Clear Calc Est GFR (MDRD) Af Amer Est GFR (MDRD) Non-Af BUN/Creatinine Ratio Glucose Hemoglobin A1c 5.9 H Calcium Magnesium C-React Prot Ext Range 97.60 H 07/25/20 07/25/20 14:35 14:35 ESR Sodium 138 Potassium 3.9 Chloride 109 H Carbon Dioxide 26.0 Anion Gap 3 L BUN 16 Creatinine 0.97 Estim Creat Clear Calc 68.89 Est GFR (MDRD) Af Amer 97 Est GFR (MDRD) Non-Af 80 BUN/Creatinine Ratio 16.6 Glucose 168 H Hemoglobin A1c Calcium 8.2 L Magnesium 1.5 L C-React Prot Ext Range - Other Studies Radiology: [] reviewed Other Studies: [] Route of nutrition/ use of supplements: [] Nutritional Intake: [] IV Site: [] Rosenberg Catheter: [] - Physical Exam General: Alert, Cooperative, No apparent distress HEENT: Atraumatic, PERRLA, EOMI Neck: Supple, No Nodes Lungs: Clear to auscultation, Normal air movement Cardiovascular: Irregular Rate, Murmur Abdomen: Soft, Non Tender, Non-Distended Extremities: No edema Skin: Ulcer/ Wound - reviewed photo IV Site: Peripheral, without redness Musculoskeletal: No Tenderness to Palpation of Joints or Extremities Neurological: Cranial nerves II-XII grossly intact - Assessment/Plan Antibiotics: [] Assessment/Plan: [] Active and Suspected Problems (Last Reviewed 05/16/20 @ 13:29 by Seema Yanes PA, PA) Elevation of cardiac enzymes (Acute) Near syncope (Acute) 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 Carbajal pending. Pt does not want to go to [facility], but I doubt his ability to manage wound care and iv abx. Discussed benefits of amputation to avoid need for [place] [facility] abx, but he is not interested. States he has normal feeling in his feet, normal blood flow, and can drive and take care of himself without any problem. Cont unasyn, will add vanc empirically. Will follow, thank you, d/w case investigator and primary team.
--- NOTE | 2020-07-25 16:42 | PCM.RX.CS ---
Consult Pharmacy has been consulted to manage selected antiobiotic: Vancomycin Type of Consult: New start Suspected Infection: Osteomyelitis Prior Doses of Antibiotics Received/Current Regimen: FIRST DOSE OF 1250MG ADMINISTERED 07/25/20 AT 1552 Labs: Sodium 138 mmol/L (136-145) 07/25/20 14:35 Potassium 3.9 mmol/L (3.5-5.1) 07/25/20 14:35 Chloride 109 mmol/L (98-107) H 07/25/20 14:35 Carbon Dioxide 26.0 mmol/L (21.0-32.0) 07/25/20 14:35 Anion Gap 3 (5-15) L 07/25/20 14:35 BUN 16 mg/dL (7-18) 07/25/20 14:35 Creatinine 0.97 mg/dL (0.70-1.30) 07/25/20 14:35 Est GFR (MDRD) Af Amer 97 mL/min (>60) 07/25/20 14:35 Est GFR (MDRD) Non-Af 80 mL/min (>60) 07/25/20 14:35 BUN/Creatinine Ratio 16.6 RATIO (10-20) 07/25/20 14:35 Glucose 168 mg/dL (74-106) H 07/25/20 14:35 VANCO TROUGH ORDERED PRIOR TO 4TH DOSE = 07/27/20 AT 0330 Microbiology: Microbiology 07/25/20 08:30 Other - Toe Gram Stain - Final 07/24/20 16:50 Wound - Toe Gram Stain - Final 07/24/20 16:50 Wound - Toe Wound Culture - Preliminary Staphylococcus aureus 07/22/20 12:25 Blood Culture (Wb) - Left Hand Blood Culture - Preliminary No growth in 48 hours. 07/22/20 12:23 Blood Culture (Wb) - Left Forearm Blood Culture - Preliminary No growth in 48 hours. 07/22/20 19:25 Mucosa - Nasopharyngeal Respiratory Panel (PCR) - Final 07/22/20 12:39 Mucosa - Nose SARS-CoV-2 Antigen (Rapid) - Final Weight used for dosin.2 kg Estimated Creatinine Clearance: 69 Goal Trough: 15-20 mcg/mL Pharmacy Plan for Drug Dosing: Pharmacy Service will continue to monitor and adjust dosing as required.
[2020-07-25 17:31] LABS: Bedside Glucose 138 mg/dL (70-110)
[2020-07-25] MEDS: Insulin Human 75/25 Kwickpen 10 UNIT SC (18:08)
[2020-07-25] MEDS: Acetaminophen 325 MG Tablet 650 MG PO (22:28)
[2020-07-25 22:41] LABS: Bedside Glucose 134 mg/dL (70-110)
[2020-07-26] VITALS (12 sets, daily range): BP systolic 130–156; BP diastolic 74–93; PULSE 60–89; RESP 16–20; TEMP 36.4–37.2; O2SAT 95–98
[2020-07-26] MEDS: Vancomycin IV 1,000 MG/200 ML BAG 200 MG IV ×2 (03:35→16:04)
[2020-07-26] MEDS: Enoxaparin 40 MG/0.4 ML Syringe SC (05:05)
[2020-07-26 05:28] LABS: Absolute Lymphocyte Count 1.24 X10^3/uL (0.83-4.51); Absolute Neutrophil Count 9.8 X10^3/uL (2.0-7.7); Basophil# 0.06 X10^3/uL; Basophil% 0.5 % (0-1); Eosinophil# 0.39 X10^3/uL; Eosinophils% 3.1 % (0-5); Hematocrit 36.8 % (40-54); Hemoglobin 11.2 g/dL (13.0-16.5); Lymphocyte # 1.24 X10^3/ul (4.0); Lymphocyte % 9.8 % (19-41); Mean Corp Hgb Conc 30.4 g/dL (32-36); Mean Corpuscular Hgb 29.3 pg (27.0-32.0); Mean Corpuscular Volume 96.3 fL (80-94); Mean Platelet Vol. 11.6 fl (6.2-12.0); Monocyte# 1.14 X10^3/uL; NRBC Flagged by Analyzer 0 % (0-5); Neutrophil # 9.83 X10^3/uL (2.7-7.7); Neutrophil % 77.2 % (47-70); Platelet Count 243 K/mm3 (150-450); RBC Distribution Width CV 14.4 % (11.6-14.6); RBC Distribution Width SD 50.4 fl (35.1-43.9); Red Blood Count 3.82 M/mm3 (4.6-6.2); White Blood Count 12.7 K/mm3 (4.4-11.0)
[2020-07-26 05:46] LABS: Anion Gap 6 (5-15); BUN 15 mg/dL (7-18); Calcium,Total 8.1 mg/dL (8.5-10.1); Chloride 107 mmol/L (98-107); Creatinine, Serum 0.83 mg/dL (0.70-1.30); EST Glomerular Filtration Rate 95 mL/min (>60); Est Glom Filt Rate - Afr Amer 114 mL/min (>60); Estimated Creatinine Clearance 80.51 ml/min; Glucose 104 mg/dL (74-106); Potassium 3.6 mmol/L (3.5-5.1); Sodium Level 136 mmol/L (136-145)
[2020-07-26] MEDS: 0.9% Normal Saline 1,000 ML 100 ML IV ×3 (06:10→22:12)
[2020-07-26 07:41] LABS: Bedside Glucose 118 mg/dL (70-110)
[2020-07-26] MEDS: Insulin Human 75/25 Kwickpen 20 UNIT SC (08:26)
[2020-07-26] MEDS: Aspirin 81 MG TAB.CHEW PO (08:26)
[2020-07-26] MEDS: Pantoprazole Sodium 40 MG Tablet PO (09:39)
[2020-07-26] MEDS: Losartan Potassium 25 MG Tablet PO (09:39)
[2020-07-26] MEDS: Metoprolol(XL)Succ 25 MG Tablet 12.5 MG PO (09:39)
[2020-07-26] MEDS: Montelukast 10 MG Tablet PO (09:39)
--- NOTE | 2020-07-26 09:57 | PCM.PROGNOTE ---
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 Patient denies any new pedal complaints. Patient denies nausea, fever, vomiting, chills, chest pain, shortness of breath, streaking, purulence - Physical Exam Vitals/I&O's: Vital Signs Temp Pulse Resp BP Pulse Ox 98.2 F 84 16 156/78 H 96 07/26/20 09:24 07/26/20 09:39 07/26/20 09:24 07/26/20 09:24 07/26/20 09:24 Oxygen Delivery Method Room Air Weight: 89.9 kg Body Mass Index (BMI) 24.6 Orthostatic Vital Signs Start: 07/22/20 22:54 Freq: q24h Status: Active Protocol: Activity Type Activity Date Activity User E-Sign Co-Sign Detail Recorded Client Recorded Date Recorded By Document 07/25/20 16:00 bm [id number] 07/25/20 16:24 bm 07/25/20 16:00 Orthostatic Vitals Standing -Blood Pressure (90/60-120/80) 155/83 H -Extremity Use Right Arm -Pulse Rate (60-100) 70 Sitting -Blood Pressure (90/60-120/80) 149/76 H -Extremity Use Right Arm -Pulse Rate (60-100) 80 Lying -Blood Pressure (90/60-120/80) 154/85 H -Extremity Use Right Arm -Pulse Rate (60-100) 83 Intake and Output for Last 24 Hours 07/24/20 07/25/20 07/26/20 23:59 23:59 23:59 Intake Total 3864.00 / 3864.00 2965 / 3085 1332 / 1332 Output Total 675 / 675 500 / 925 1025 / 1025 Balance 3189.00 / 3189.00 2465 / 2160 307 / 307 General: Alert, Oriented x3 HEENT: Atraumatic Extremities: No clubbing, No cyanosis, Capillary Refill Less than 3 Seconds, Diminished Peripheral Pulses, Edema - right foot/hallux Skin: Ulcer/ Wound - right hallux ucler, no malodor, probes to bone, sanginous drainage, periwound erythema and edema no change, periwound area is warm wound is cool with necrotic base, increase in necrotic tissue noted to base likely from poor blood flow even though bleeding is noted when wound was debrided, no pus Musculoskeletal: Muscle Wasting, Tenderness - toes Neurological: - - decreased epicritic sensation Psych/Mental Status: Normal Affect, Appropriate Microbiology Past 72 Hours 07/24/20 16:50 Wound - Toe Gram Stain - Final 07/24/20 16:50 Wound - Toe Wound Culture - Final Staphylococcus aureus 07/24/20 16:50 Wound - Toe Anaerobic Culture - Preliminary Checking for anaerobes, further studies to follow. 07/25/20 18:25 Mucosa - Nose SARS-CoV-2 Antigen (Rapid) - Final 07/25/20 08:30 Other - Toe Gram Stain - Final 07/22/20 12:25 Blood Culture (Wb) - Left Hand Blood Culture - Preliminary No growth in 48 hours. 07/22/20 12:23 Blood Culture (Wb) - Left Forearm Blood Culture - Preliminary No growth in 48 hours. Laboratory Results 07/25/20 11:58: POC Glucose 167 H 07/25/20 14:35: Magnesium 1.5 L 07/25/20 14:35: Sodium 138, Potassium 3.9, Chloride 109 H, Carbon Dioxide 26.0, Anion Gap 3 L, BUN 16, Creatinine 0.97, Estim Creat Clear Calc 68.89, Est GFR (MDRD) Af Amer 97, Est GFR (MDRD) Non-Af 80, BUN/Creatinine Ratio 16.6, Glucose 168 H, Calcium 8.2 L 07/25/20 16:48: POC Glucose 138 H 07/25/20 22:24: POC Glucose 134 H 07/26/20 04:58: WBC 12.7 H, RBC 3.82 L, Hgb 11.2 L, Hct 36.8 L, MCV 96.3 H D, MCH 29.3, MCHC 30.4 L D, RDW Std Deviation 50.4 H, RDW Coeff of Sacha 14.4, Plt Count 243, MPV 11.6, Immature Gran % (Auto) 0.400, Neut % (Auto) 77.2 H, Lymph % (Auto) 9.8 L, [place] % (Auto) 9.0, Eos % (Auto) 3.1, Baso % (Auto) 0.5, Absolute Neuts (auto) 9.8 H, Absolute Lymphs (auto) 1.24, Nucleated RBC % 0 07/26/20 04:58: Sodium 136, Potassium 3.6, Chloride 107, Carbon Dioxide 23.0, Anion Gap 6, BUN 15, Creatinine 0.83, Estim Creat Clear Calc 80.51, Est GFR (MDRD) Af Amer 114, Est GFR (MDRD) Non-Af 95, BUN/Creatinine Ratio 18.0, Glucose 104, Calcium 8.1 L 07/26/20 07:34: POC Glucose 118 H Current Medications Acetaminophen (Acetaminophen 325 Mg Tablet) 650 mg PO Q6H PRN PRN PRN Reason: Pain Score 1-10/Temp > 100.7 F Last Admin: 07/25/20 22:28 Dose: 650 mg Documented by: Al Hydroxide/Mg Hydroxide (Mag Hydrox/Al Hydrox/Simeth 30 Ml Udc) 30 ml PO Q6H PRN PRN PRN Reason: Gastric Burning Albuterol Sulfate (Albuterol 2.5 Mg/3 Ml Vial.Neb.) 2.5 mg INHALATION Q2H PRN PRN PRN Reason: Dyspnea, wheezing Aspirin (Aspirin 81 Mg Tab.Chew) 81 mg PO DAILY@0800 [facility] Last Admin: 07/26/20 08:26 Dose: 81 mg Documented by: Clotrimazole (Clotrimazole 1 Tube) 1 applicatio TOPICAL BID [facility]; Protocol Last Admin: 07/26/20 09:45 Dose: 1 applicatio Documented by: Enoxaparin Sodium (Enoxaparin 40 Mg/0.4 Ml Syringe) 40 mg SC DAILY@0600 [facility] Last Admin: 07/26/20 05:05 Dose: 40 mg Documented by: Guaifenesin (Guaifenesin 10 Ml Udc (200mg/10ml)) 20 ml PO Q4H PRN PRN PRN Reason: COUGH Last Admin: 07/24/20 03:35 Dose: 20 ml Documented by: Hydralazine HCl (Hydralazine 20 Mg/Ml Vial) 10 mg IV Q4H PRN PRN PRN Reason: SBP > 160 Sodium Chloride () 1,000 mls @ 100 mls/hr IV .Q10H [facility] Last Admin: 07/26/20 06:10 Dose: 100 mls/hr Documented by: Ampicillin Sodium/Sulbactam (Sodium 3 gm/ Sodium Chloride) 112 mls @ 150 mls/hr IV Q8 [facility] Last Infusion: 07/26/20 05:53 Dose: Infused Documented by: Vancomycin IV Pharmacy to Dose (1 ea/ Sodium Chloride) 500 mls @ 250 mls/hr IV X1 PRN; Protocol PRN Reason: Rx to Dose Vancomycin HCl (Vancomycin) 1,000 mg in 200 mls @ 200 mls/hr IV Q12H [facility] Last Infusion: 07/26/20 04:37 Dose: Infused Documented by: Insulin Human Lispro (Insulin Lispro 100 Unit/Ml Insuln.Pen) 0 unit SC ACHS [facility]; Protocol Last Admin: 07/26/20 08:22 Dose: Not Given Documented by: Insulin Lispro Protam/Lispro Human (Insulin Human 75/25 [place]) 20 unit SC BREAKFAST [facility] Last Admin: 07/26/20 08:26 Dose: 20 u Documented by: Insulin Lispro Protam/Lispro Human (Insulin Human 75/25 [place]) 10 unit SC DINNER [facility] Last Admin: 07/25/20 18:08 Dose: 10 u Documented by: Losartan Potassium (Losartan Potassium 25 Mg Tablet) 25 mg PO DAILY [facility] Last Admin: 07/26/20 09:39 Dose: 25 mg Documented by: Magnesium Hydroxide (Magnesium Hydroxide 30 Ml Udc) 30 ml PO DAILY PRN PRN PRN Reason: Constipation Melatonin (Melatonin 3 Mg Tablet) 3 mg PO QHS PRN PRN PRN Reason: INSOMNIA Metoprolol Succinate (Metoprolol(Xl)Succ 25 Mg Tablet) 12.5 mg PO DAILY [facility] Last Admin: 07/26/20 09:39 Dose: 12.5 mg Documented by: Montelukast Sodium (Montelukast 10 Mg Tablet) 10 mg PO DAILY [facility] Last Admin: 07/26/20 09:39 Dose: 10 mg Documented by: Nitroglycerin (Nitroglycerin (Inpatient Use) 0.4 Mg Tab.Subl) 0.4 mg SUBLINGUAL Q5M PRN PRN Reason: CARDIAC/CHEST PAIN Ondansetron HCl (Ondansetron 4 Mg/2 Ml Vial) 4 mg IV Q8H PRN PRN PRN Reason: NAUSEA/VOMITING Oxycodone HCl (Oxycodone 5 Mg Tablet) 5 mg PO Q4H PRN PRN PRN Reason: Pain Score 4-5 Pantoprazole Sodium (Pantoprazole Sodium 40 Mg Tablet) 40 mg PO DAILY [facility] Last Admin: 07/26/20 09:39 Dose: 40 mg Documented by: Prochlorperazine Edisylate (Prochlorperazine 10 Mg/2 Ml Vial) 5 mg IV Q4H PRN PRN PRN Reason: Breakthrough Nausea/Vomiting Psyllium Hydrophilic Mucilloid (Psyllium 1 Packet) 1 packet PO DAILY PRN PRN PRN Reason: Constipation Senna/Docusate Sodium (Senna/Docusate Sodium 1 Tablet) 2 tablet PO BID PRN PRN PRN Reason: Constipation Sodium Chloride (0.9% Saline Lock 10 Ml Syringe) 10 - 40 ml IV UD PRN PRN Reason: SALINE FLUSH Last Admin: 07/24/20 22:19 Dose: 10 ml Documented by: Throat Lozenges (Benzocaine/Menthol 1 Lozenge) 1 lozenge MUCOUS MEM Q2H PRN PRN PRN Reason: SORE THROAT Last Admin: 07/24/20 22:14 Dose: 1 lozenge Documented by: Medical Necessity - Tobacco Use Smoking Status: Never smoker Tobacco Use: Non-smoker Assessment/Plan All Active Problems (Last Reviewed 05/16/20 @ 13:29 by Seema Yanes PA, PA) Elevation of cardiac enzymes (Acute) Near syncope (Acute) 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 Growing staph aureus Bone biopsy taken. Follow results Some serous necrotic drainage noted from wound site today with increased necrotic tissue and bone exposed Continue daily dressing changes with aquacel silver covered by DSD. Patient has noted muscle weakness. Try to not put weight through right hallux. Discussed this with PT and realize that due to patient's high fall risk this may not be feasible. Patient is aware of this and knows that putting weight through toe will slow wound healing. Surgical shoe ordered ESR 46, CRP 97.6, Hgb a1c 5.9 WBC 12.7 Cont antibiotics per ID New LEAS ordered showing Left biphasic with GABBI 1.16 on PT and DP is noncompressible TBI 0.4 as well as on right is monophasic wiht GABBI 1.49 and TBI 0.19. This is not adaquate to allow for wound healing either of wound or of amputation site. Discussed this with the patient. Recommend vascular consult to assess if any intervention is possible. Given the amount of new necrotic tissue present to wound since yesterday I don't think he is currently capable of healing the wound or amputation at this time. Would recommend vascular intervention prior to any podiatry intervention. Patient noted to have LEAS done in February 2018 showing right GABBI of 0.39 and TBI of 0.35 and left GABBI 1.06 and TBI 0.53. DP and PT were biphasic bilaterally. Patient denies any intervention or following up with a vascular specialist MRI showed suspicion for OM as well as possible fracture to the distal phalanx of hallux. Discussed with the patient at length the results of the MRI showing likely bone infection. Also discussed that clinically about 50% of the plantar aspect of the distal phalanx is visible through the wound defect which is highly suspicious for bone infection. Discussed his lab results as well. Discussed options including long course of IV antibiotics, wound care, surgical debridement or amputation in depth with the patient. Discussed that due to the amount of bone exposed and how soft the bone is that I believe the bone is infected and that any wound care options would take months to try to get this to heal. Discussed my recommendation would be an amputation especially as patient has some contraction to his hallux which would predispose him to future ulcerations in this area. Patient has changed his mind and would like to have an amputation now. Discussed that he currently doesn't have the blood flow to heal an amputation. Discussed doing vascular intervention prior to any podiatry intervention. Patient understood. Discussed all risks, benefits, alternatives, and complications including but not limited to infection, delayed healing, non healing, need for further surgery or wound care or amputation. All questions answered. Patient understood and agreed to treatment course Discussed case with Dr Ledezma, patient is stable to undergo surgery. Given amount of necrotic tissue buildup overnight recommend vascular consult and intervention prior to podiatry intervention Podiatry will continue to follow. Please contact if any concerns
--- NOTE | 2020-07-26 12:19 | PN_ITS ---
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 States that he would be fine at home given himself antibiotics and take care of himself. When asked why he is here he really does not give a specific answer and seems to be evasive pertaining to this other than he can take care of himself. . The patient that I feel uncomfortable with him going home and being able to administer IV antibiotics being that is not able to adequately care for himself at home. He then states that he would be fine to just get an amputation. I did tell him that there still could be an issue in regards to his ambulation as he would not be able to have any weight on his forefoot because of the surgery on his right foot if he does have an amputation. And he is already unsteady on his feet. Vitals/I&O's: Vital Signs Temp Pulse Resp BP Pulse Ox 36.8 C 80 16 156/78 H 96 07/26/20 09:24 07/26/20 09:58 07/26/20 09:24 07/26/20 09:24 07/26/20 09:24 Oxygen Delivery Method Room Air Weight: 89.9 kg Body Mass Index (BMI) 24.6 Orthostatic Vital Signs Start: 07/22/20 22:54 Freq: q24h Status: Active Protocol: Activity Type Activity Date Activity User E-Sign Co-Sign Detail Recorded Client Recorded Date Recorded By Document 07/25/20 16:00 bm [id number] 07/25/20 16:24 bm 07/25/20 16:00 Orthostatic Vitals Standing -Blood Pressure (90/60-120/80) 155/83 H -Extremity Use Right Arm -Pulse Rate (60-100) 70 Sitting -Blood Pressure (90/60-120/80) 149/76 H -Extremity Use Right Arm -Pulse Rate (60-100) 80 Lying -Blood Pressure (90/60-120/80) 154/85 H -Extremity Use Right Arm -Pulse Rate (60-100) 83 Intake and Output for Last 24 Hours 07/24/20 07/25/20 07/26/20 23:59 23:59 23:59 Intake Total 3864.00 / 3864.00 2965 / 3085 1332 / 1332 Output Total 675 / 675 500 / 925 1025 / 1025 Balance 3189.00 / 3189.00 2465 / 2160 307 / 307 General: Alert, No apparent distress HEENT: Atraumatic, Normocephalic Oral: Moist Mucosa, No Gingival or Mucosal Lesions/ Ulcerations Neck: No Nodes, Thyroid Normal Size and Texture Lungs: Clear to auscultation, Normal air movement, No rhonchi, No wheeze Cardiovascular: Regular rate, Regular Rhythm, Normal S1, Normal S2 Abdomen: Bowel Sounds Present, Soft, Non Tender, Non-Distended, No Hepato- splenomegaly Extremities: - - decreased erythema of right great toe. Skin: No rashes, No breakdown Psych/Mental Status: Normal Affect, Appropriate Microbiology Past 72 Hours 07/25/20 08:30 Other - Toe Miscellaneous Culture - Preliminary Staphylococcus aureus 07/25/20 08:30 Other - Toe Gram Stain - Final 07/24/20 16:50 Wound - Toe Gram Stain - Final 07/24/20 16:50 Wound - Toe Wound Culture - Final Staphylococcus aureus 07/24/20 16:50 Wound - Toe Anaerobic Culture - Preliminary Checking for anaerobes, further studies to follow. 07/25/20 18:25 Mucosa - Nose SARS-CoV-2 Antigen (Rapid) - Final 07/22/20 12:25 Blood Culture (Wb) - Left Hand Blood Culture - Preliminary No growth in 48 hours. 07/22/20 12:23 Blood Culture (Wb) - Left Forearm Blood Culture - Preliminary No growth in 48 hours. Laboratory Results 07/25/20 11:58: POC Glucose 167 H 07/25/20 14:35: Magnesium 1.5 L 07/25/20 14:35: Sodium 138, Potassium 3.9, Chloride 109 H, Carbon Dioxide 26.0, Anion Gap 3 L, BUN 16, Creatinine 0.97, Estim Creat Clear Calc 68.89, Est GFR (MDRD) Af Amer 97, Est GFR (MDRD) Non-Af 80, BUN/Creatinine Ratio 16.6, Glucose 168 H, Calcium 8.2 L 07/25/20 16:48: POC Glucose 138 H 07/25/20 22:24: POC Glucose 134 H 07/26/20 04:58: WBC 12.7 H, RBC 3.82 L, Hgb 11.2 L, Hct 36.8 L, MCV 96.3 H D, MCH 29.3, MCHC 30.4 L D, RDW Std Deviation 50.4 H, RDW Coeff of Sacha 14.4, Plt Count 243, MPV 11.6, Immature Gran % (Auto) 0.400, Neut % (Auto) 77.2 H, Lymph % (Auto) 9.8 L, [place] % (Auto) 9.0, Eos % (Auto) 3.1, Baso % (Auto) 0.5, Absolute Neuts (auto) 9.8 H, Absolute Lymphs (auto) 1.24, Nucleated RBC % 0 07/26/20 04:58: Sodium 136, Potassium 3.6, Chloride 107, Carbon Dioxide 23.0, Anion Gap 6, BUN 15, Creatinine 0.83, Estim Creat Clear Calc 80.51, Est GFR (MDRD) Af Amer 114, Est GFR (MDRD) Non-Af 95, BUN/Creatinine Ratio 18.0, Glucose 104, Calcium 8.1 L 07/26/20 07:34: POC Glucose 118 H Current Medications Acetaminophen (Acetaminophen 325 Mg Tablet) 650 mg PO Q6H PRN PRN PRN Reason: Pain Score 1-10/Temp > 100.7 F Last Admin: 07/25/20 22:28 Dose: 650 mg Documented by: Al Hydroxide/Mg Hydroxide (Mag Hydrox/Al Hydrox/Simeth 30 Ml Udc) 30 ml PO Q6H PRN PRN PRN Reason: Gastric Burning Albuterol Sulfate (Albuterol 2.5 Mg/3 Ml Vial.Neb.) 2.5 mg INHALATION Q2H PRN PRN PRN Reason: Dyspnea, wheezing Aspirin (Aspirin 81 Mg Tab.Chew) 81 mg PO DAILY@0800 [facility] Last Admin: 07/26/20 08:26 Dose: 81 mg Documented by: Clotrimazole (Clotrimazole 1 Tube) 1 applicatio TOPICAL BID [facility]; Protocol Last Admin: 07/26/20 09:45 Dose: 1 applicatio Documented by: Enoxaparin Sodium (Enoxaparin 40 Mg/0.4 Ml Syringe) 40 mg SC DAILY@0600 [facility] Last Admin: 07/26/20 05:05 Dose: 40 mg Documented by: Guaifenesin (Guaifenesin 10 Ml Udc (200mg/10ml)) 20 ml PO Q4H PRN PRN PRN Reason: COUGH Last Admin: 07/24/20 03:35 Dose: 20 ml Documented by: Hydralazine HCl (Hydralazine 20 Mg/Ml Vial) 10 mg IV Q4H PRN PRN PRN Reason: SBP > 160 Sodium Chloride () 1,000 mls @ 100 mls/hr IV .Q10H [facility] Last Admin: 07/26/20 06:10 Dose: 100 mls/hr Documented by: Ampicillin Sodium/Sulbactam (Sodium 3 gm/ Sodium Chloride) 112 mls @ 150 mls/hr IV Q8 [facility] Last Infusion: 07/26/20 05:53 Dose: Infused Documented by: Vancomycin IV Pharmacy to Dose (1 ea/ Sodium Chloride) 500 mls @ 250 mls/hr IV X1 PRN; Protocol PRN Reason: Rx to Dose Vancomycin HCl (Vancomycin) 1,000 mg in 200 mls @ 200 mls/hr IV Q12H [facility] Last Infusion: 07/26/20 04:37 Dose: Infused Documented by: Insulin Human Lispro (Insulin Lispro 100 Unit/Ml Insuln.Pen) 0 unit SC ACHS [facility]; Protocol Last Admin: 07/26/20 08:22 Dose: Not Given Documented by: Insulin Lispro Protam/Lispro Human (Insulin Human 75/25 [place]) 20 unit SC BREAKFAST [facility] Last Admin: 07/26/20 08:26 Dose: 20 u Documented by: Insulin Lispro Protam/Lispro Human (Insulin Human 75/25 [place]) 10 unit SC DINNER [facility] Last Admin: 07/25/20 18:08 Dose: 10 u Documented by: Losartan Potassium (Losartan Potassium 25 Mg Tablet) 25 mg PO DAILY [facility] Last Admin: 07/26/20 09:39 Dose: 25 mg Documented by: Magnesium Hydroxide (Magnesium Hydroxide 30 Ml Udc) 30 ml PO DAILY PRN PRN PRN Reason: Constipation Melatonin (Melatonin 3 Mg Tablet) 3 mg PO QHS PRN PRN PRN Reason: INSOMNIA Metoprolol Succinate (Metoprolol(Xl)Succ 25 Mg Tablet) 12.5 mg PO DAILY [facility] Last Admin: 07/26/20 09:39 Dose: 12.5 mg Documented by: Montelukast Sodium (Montelukast 10 Mg Tablet) 10 mg PO DAILY [facility] Last Admin: 07/26/20 09:39 Dose: 10 mg Documented by: Nitroglycerin (Nitroglycerin (Inpatient Use) 0.4 Mg Tab.Subl) 0.4 mg SUBLINGUAL Q5M PRN PRN Reason: CARDIAC/CHEST PAIN Ondansetron HCl (Ondansetron 4 Mg/2 Ml Vial) 4 mg IV Q8H PRN PRN PRN Reason: NAUSEA/VOMITING Oxycodone HCl (Oxycodone 5 Mg Tablet) 5 mg PO Q4H PRN PRN PRN Reason: Pain Score 4-5 Pantoprazole Sodium (Pantoprazole Sodium 40 Mg Tablet) 40 mg PO DAILY [facility] Last Admin: 07/26/20 09:39 Dose: 40 mg Documented by: Prochlorperazine Edisylate (Prochlorperazine 10 Mg/2 Ml Vial) 5 mg IV Q4H PRN PRN PRN Reason: Breakthrough Nausea/Vomiting Psyllium Hydrophilic Mucilloid (Psyllium 1 Packet) 1 packet PO DAILY PRN PRN PRN Reason: Constipation Senna/Docusate Sodium (Senna/Docusate Sodium 1 Tablet) 2 tablet PO BID PRN PRN PRN Reason: Constipation Sodium Chloride (0.9% Saline Lock 10 Ml Syringe) 10 - 40 ml IV UD PRN PRN Reason: SALINE FLUSH Last Admin: 07/24/20 22:19 Dose: 10 ml Documented by: Throat Lozenges (Benzocaine/Menthol 1 Lozenge) 1 lozenge MUCOUS MEM Q2H PRN PRN PRN Reason: SORE THROAT Last Admin: 07/24/20 22:14 Dose: 1 lozenge Documented by: STROKE Vital Signs/Narrative: Vital Signs Temp Pulse Resp BP Pulse Ox 07/26/20 09:58 80 07/26/20 09:45 84 07/26/20 09:39 84 07/26/20 09:24 36.8 C 82 16 156/78 H 96 Medical Necessity - Tobacco Use Smoking Status: Never smoker Tobacco Use: Non-smoker Assessment/Plan All Active Problems (Last Reviewed 05/16/20 @ 13:29 by Seema REID, PA) Elevation of cardiac enzymes (Acute) Near syncope (Acute) 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 NSTEMI: * peak troponin 0.161 * stress test negative for acute ischemia * likely type 2 * follow up echo * cardiology following. 2. failure to thrive * suspect patient has an underlying neurodegenerative disorder (parkinson's, PSP, MSA). Pt dismissive to the prospect, however, pt w impaired vertical saccades, masked facies, hypophonia * PT recommends additional therapy, max assistance with walking * pt lives by himself * Had a long conversation about the patient's weakness and his falls. As mentioned earlier, patient was dismissive of disclaims though he does endorse that he falls but states that he has family history of falls regards to his father and uncles and so forth. Explained that if he falls another time by going home that he could potentially fracture something such as a hip from his back worse have some more severe injury. And also expressed concern about his reaction time being potentially impaired and I did advise that he hold off on driving until he is a former geriatric driving assessment to see if his reaction time is appropriate enough to drive safely. Patient expressed no interest in doing that. I told them that given his overall debility that he is at higher risk of causing an accident because his reaction time may be impaired though no fault of his own. I did tell him that if he were to cause any accident or injury that he could be personally liable for injuries pote ntially sustained. I did tell him this several times. The told him that if he were to cause an accident, be deposed that he should answer honestly if he was ever told that he should not drive. * Outpatient: follow up with movement disorder specialist ([facility], , etc.) and geriatric driving assessment. 3. Right great toe cellulitis and OM: * Likely from the large callus that he has * Started on ampicillin/sulbactam * Check culture * Likely from him wearing tight fitting shoes * Patient preferring to salvage his toe continue with IV antibiotics. Infectious disease on consultation to help facilitate course and length of antibiotics. * Wound culture growing out staph aureus. * +MSSA * I had a long conversation with the patient today and he reluctantly agrees to get the amputation as is been told by me as well as others that IV antibiotics may likely be futile and that he may require eventual amputation but also he changed his mind because I told him that I was not comfortable with him going home and administering these antibiotics as I do not feel that he would be capable of doing so given whatever neurologic condition is affecting him. I discussed with Dr. Carbajal who plans on doing surgery but given his significant PAD would like vascular involvement prior to him undergoing surgery. 4. PAD: * Right lower extremity: GABBI 0.6, TBI 0.19. 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 * As above, podiatry would like this addressed (if feasible) prior to amputation * Vascular consult. 5. DM2 * fair control * a1c 5.9 * continue 75/25 (70/30 at home) plus SSI 6. VTE prophylaxis: LMWH Greater than 40 minutes of which greater than 50% of time was counseling the patient in regards to treatment for his osteomyelitis, including amputation, home antibiotics. Also did discuss the possibility of hospice if he does not wish to proceed with any of that but he stated that he does not have any interest in hospice at this time. Also according care with podiatry and following up on data from his vascular studies. Inpatient E&M: [id number] [facility] L[facility]
[2020-07-26 12:56] LABS: Bedside Glucose 147 mg/dL (70-110)
--- NOTE | 2020-07-26 13:30 | PN.ID_ITS ---
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 (Acute) Subjective: Feeling ok, no fever, no n/v/d, wants to leave hospital but understands he will need surgery - Physical Exam Vitals/I&O's: Vital Signs Temp Pulse Resp BP Pulse Ox 98.2 F 80 16 156/78 H 96 07/26/20 09:24 07/26/20 09:58 07/26/20 09:24 07/26/20 09:24 07/26/20 09:24 Oxygen Delivery Method Room Air Weight: 89.9 kg Body Mass Index (BMI) 24.6 Orthostatic Vital Signs Start: 07/22/20 22:54 Freq: q24h Status: Active Protocol: Activity Type Activity Date Activity User E-Sign Co-Sign Detail Recorded Client Recorded Date Recorded By Document 07/25/20 16:00 bm [id number] 07/25/20 16:24 bm 07/25/20 16:00 Orthostatic Vitals Standing -Blood Pressure (90/60-120/80) 155/83 H -Extremity Use Right Arm -Pulse Rate (60-100) 70 Sitting -Blood Pressure (90/60-120/80) 149/76 H -Extremity Use Right Arm -Pulse Rate (60-100) 80 Lying -Blood Pressure (90/60-120/80) 154/85 H -Extremity Use Right Arm -Pulse Rate (60-100) 83 Intake and Output for Last 24 Hours 07/24/20 07/25/20 07/26/20 23:59 23:59 23:59 Intake Total 3864.00 / 3864.00 2965 / 3085 1632 / 1632 Output Total 675 / 675 500 / 925 1025 / 1025 Balance 3189.00 / 3189.00 2465 / 2160 607 / 607 General: Alert, No apparent distress Lungs: Clear to auscultation, Normal air movement Cardiovascular: Regular rate, Regular Rhythm Abdomen: Soft, Non Tender, Non-Distended Skin: No rashes Microbiology Past 72 Hours 07/25/20 08:30 Other - Toe Miscellaneous Culture - Preliminary Staphylococcus aureus 07/25/20 08:30 Other - Toe Gram Stain - Final 07/24/20 16:50 Wound - Toe Gram Stain - Final 07/24/20 16:50 Wound - Toe Wound Culture - Final Staphylococcus aureus 07/24/20 16:50 Wound - Toe Anaerobic Culture - Preliminary Checking for anaerobes, further studies to follow. 07/25/20 18:25 Mucosa - Nose SARS-CoV-2 Antigen (Rapid) - Final 07/22/20 12:25 Blood Culture (Wb) - Left Hand Blood Culture - Preliminary No growth in 48 hours. 07/22/20 12:23 Blood Culture (Wb) - Left Forearm Blood Culture - Preliminary No growth in 48 hours. Laboratory Results 07/25/20 14:35: Magnesium 1.5 L 07/25/20 14:35: Sodium 138, Potassium 3.9, Chloride 109 H, Carbon Dioxide 26.0, Anion Gap 3 L, BUN 16, Creatinine 0.97, Estim Creat Clear Calc 68.89, Est GFR (MDRD) Af Amer 97, Est GFR (MDRD) Non-Af 80, BUN/Creatinine Ratio 16.6, Glucose 168 H, Calcium 8.2 L 07/25/20 16:48: POC Glucose 138 H 07/25/20 22:24: POC Glucose 134 H 07/26/20 04:58: WBC 12.7 H, RBC 3.82 L, Hgb 11.2 L, Hct 36.8 L, MCV 96.3 H D, MCH 29.3, MCHC 30.4 L D, RDW Std Deviation 50.4 H, RDW Coeff of Sacha 14.4, Plt Count 243, MPV 11.6, Immature Gran % (Auto) 0.400, Neut % (Auto) 77.2 H, Lymph % (Auto) 9.8 L, [place] % (Auto) 9.0, Eos % (Auto) 3.1, Baso % (Auto) 0.5, Absolute Neuts (auto) 9.8 H, Absolute Lymphs (auto) 1.24, Nucleated RBC % 0 07/26/20 04:58: Sodium 136, Potassium 3.6, Chloride 107, Carbon Dioxide 23.0, Anion Gap 6, BUN 15, Creatinine 0.83, Estim Creat Clear Calc 80.51, Est GFR (MDRD) Af Amer 114, Est GFR (MDRD) Non-Af 95, BUN/Creatinine Ratio 18.0, Glucose 104, Calcium 8.1 L 07/26/20 07:34: POC Glucose 118 H 07/26/20 12:38: POC Glucose 147 H Current Medications Acetaminophen (Acetaminophen 325 Mg Tablet) 650 mg PO Q6H PRN PRN PRN Reason: Pain Score 1-10/Temp > 100.7 F Last Admin: 07/25/20 22:28 Dose: 650 mg Documented by: Al Hydroxide/Mg Hydroxide (Mag Hydrox/Al Hydrox/Simeth 30 Ml Udc) 30 ml PO Q6H PRN PRN PRN Reason: Gastric Burning Albuterol Sulfate (Albuterol 2.5 Mg/3 Ml Vial.Neb.) 2.5 mg INHALATION Q2H PRN PRN PRN Reason: Dyspnea, wheezing Aspirin (Aspirin 81 Mg Tab.Chew) 81 mg PO DAILY@0800 [facility] Last Admin: 07/26/20 08:26 Dose: 81 mg Documented by: Clotrimazole (Clotrimazole 1 Tube) 1 applicatio TOPICAL BID [facility]; Protocol Last Admin: 07/26/20 09:45 Dose: 1 applicatio Documented by: Enoxaparin Sodium (Enoxaparin 40 Mg/0.4 Ml Syringe) 40 mg SC DAILY@0600 [facility] Last Admin: 07/26/20 05:05 Dose: 40 mg Documented by: Guaifenesin (Guaifenesin 10 Ml Udc (200mg/10ml)) 20 ml PO Q4H PRN PRN PRN Reason: COUGH Last Admin: 07/24/20 03:35 Dose: 20 ml Documented by: Hydralazine HCl (Hydralazine 20 Mg/Ml Vial) 10 mg IV Q4H PRN PRN PRN Reason: SBP > 160 Sodium Chloride () 1,000 mls @ 100 mls/hr IV .Q10H [facility] Last Admin: 07/26/20 06:10 Dose: 100 mls/hr Documented by: Ampicillin Sodium/Sulbactam (Sodium 3 gm/ Sodium Chloride) 112 mls @ 150 mls/hr IV Q8 [facility] Last Infusion: 07/26/20 05:53 Dose: Infused Documented by: Vancomycin IV Pharmacy to Dose (1 ea/ Sodium Chloride) 500 mls @ 250 mls/hr IV X1 PRN; Protocol PRN Reason: Rx to Dose Vancomycin HCl (Vancomycin) 1,000 mg in 200 mls @ 200 mls/hr IV Q12H [facility] Last Infusion: 07/26/20 04:37 Dose: Infused Documented by: Insulin Human Lispro (Insulin Lispro 100 Unit/Ml Insuln.Pen) 0 unit SC ACHS [facility]; Protocol Last Admin: 07/26/20 12:39 Dose: Not Given Documented by: Insulin Lispro Protam/Lispro Human (Insulin Human 75/25 [place]) 20 unit SC BREAKFAST [facility] Last Admin: 07/26/20 08:26 Dose: 20 u Documented by: Insulin Lispro Protam/Lispro Human (Insulin Human 75/25 [place]) 10 unit SC DINNER [facility] Last Admin: 07/25/20 18:08 Dose: 10 u Documented by: Losartan Potassium (Losartan Potassium 25 Mg Tablet) 25 mg PO DAILY [facility] Last Admin: 07/26/20 09:39 Dose: 25 mg Documented by: Magnesium Hydroxide (Magnesium Hydroxide 30 Ml Udc) 30 ml PO DAILY PRN PRN PRN Reason: Constipation Melatonin (Melatonin 3 Mg Tablet) 3 mg PO QHS PRN PRN PRN Reason: INSOMNIA Metoprolol Succinate (Metoprolol(Xl)Succ 25 Mg Tablet) 12.5 mg PO DAILY [facility] Last Admin: 07/26/20 09:39 Dose: 12.5 mg Documented by: Montelukast Sodium (Montelukast 10 Mg Tablet) 10 mg PO DAILY [facility] Last Admin: 07/26/20 09:39 Dose: 10 mg Documented by: Nitroglycerin (Nitroglycerin (Inpatient Use) 0.4 Mg Tab.Subl) 0.4 mg SUBLINGUAL Q5M PRN PRN Reason: CARDIAC/CHEST PAIN Ondansetron HCl (Ondansetron 4 Mg/2 Ml Vial) 4 mg IV Q8H PRN PRN PRN Reason: NAUSEA/VOMITING Oxycodone HCl (Oxycodone 5 Mg Tablet) 5 mg PO Q4H PRN PRN PRN Reason: Pain Score 4-5 Pantoprazole Sodium (Pantoprazole Sodium 40 Mg Tablet) 40 mg PO DAILY [facility] Last Admin: 07/26/20 09:39 Dose: 40 mg Documented by: Prochlorperazine Edisylate (Prochlorperazine 10 Mg/2 Ml Vial) 5 mg IV Q4H PRN PRN PRN Reason: Breakthrough Nausea/Vomiting Psyllium Hydrophilic Mucilloid (Psyllium 1 Packet) 1 packet PO DAILY PRN PRN PRN Reason: Constipation Senna/Docusate Sodium (Senna/Docusate Sodium 1 Tablet) 2 tablet PO BID PRN PRN PRN Reason: Constipation Sodium Chloride (0.9% Saline Lock 10 Ml Syringe) 10 - 40 ml IV UD PRN PRN Reason: SALINE FLUSH Last Admin: 07/24/20 22:19 Dose: 10 ml Documented by: Throat Lozenges (Benzocaine/Menthol 1 Lozenge) 1 lozenge MUCOUS MEM Q2H PRN PRN PRN Reason: SORE THROAT Last Admin: 07/24/20 22:14 Dose: 1 lozenge Documented by: Medical Necessity - Tobacco Use Smoking Status: Never smoker Tobacco Use: Non-smoker Route of nutrition/ use of supplements: [] Nutritional Intake: [] IV Site: [] Rosenberg Catheter: [] - Assessment/Plan Antibiotics: [] Assessment/Plan: [] Active and Suspected Problems (Last Reviewed 05/16/20 @ 13:29 by Seema Yanes PA, PA) Elevation of cardiac enzymes (Acute) Near syncope (Acute) 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 Carbajal pending. Poor bloodflow, vascular to eval. Cont vanc/unasyn. Cx with MSSA so far. Will follow, d/w primary team.
--- NOTE | 2020-07-26 15:25 | PCM.CONS.GEN ---
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 Written copy of my surgical consult recommendations will be present in the charting. The patient is already consulted on and being seen by Dr. Clarita Carbajal. The patient has evidence of gangrene and suspected osteomyelitis growing staph aureus of the right great toe. The patient minimizes his problem. He still seems not to understand that the toe is not salvageable. He wants to be discharged from the hospital. Apparently after multiple times saying he did not want to have surgical intervention now today he is suggesting that he does not want surgical intervention. As I entered the room his son was present with him today and was able to listen to the description provided. The patient had noninvasive arterial studies today. This demonstrates based upon waveforms that he has adequate flow to the popliteal level but particularly on the right leg the indices are markedly abnormal and waveforms monophasic consistent with severe occlusive disease of the infrageniculate runoff vessels. This is consistent with multi segmental disease. The left lower extremity has biphasic waveforms from the knee distally. The patient denies having neuropathy although that is documented in his clinical charting. He had an MRI suspicious for osteomyelitis. He has evidence on today's wound inspection of advancing necrosis. He is being treated with ampicillin sulbactam. Is receiving vancomycin IV. He is on 81 mg aspirin. He is receiving subcutaneous Lovenox. In addition he is on insulin therapy. Past Medical History Past Medical History (Chronic Problems): Chronic Problems (Last Reviewed 05/16/20 @ 13:29 by Seema REID, PA) CAD (coronary artery disease) (Chronic) Pleural effusion on left (Chronic) loculated per CT Chest 07/2019 thoracentesis 07/2019 Mass of right lung (Chronic) bronchoscopy 07/2019 Old inferior wall myocardial infarction (Chronic) Atherosclerotic heart disease of false pass coronary artery without angina pectoris (Chronic) Ischemic cardiomyopathy (Chronic) History of CVA (cerebrovascular accident) (Chronic 07/2017) Right bundle branch block (RBBB) (Chronic) Carotid artery stenosis (Chronic) R CEA 2018 Essential (primary) hypertension (Chronic) Claudication of both lower extremities (Chronic) Peripheral vascular occlusive disease (Chronic) RLE Medical History: Medical History (Last Reviewed 05/16/20 @ 13:29 by Seema Yanes PA, PA) Pleural effusion on left (Chronic) J90 loculated per CT Chest 07/2019 thoracentesis 07/2019 Elevated LFTs (Resolved) R79.89 Hepatic steatosis Mass of right lung (Chronic) R91.8 bronchoscopy 07/2019 Old inferior wall myocardial infarction (Chronic) I25.2 Atherosclerotic heart disease of false pass coronary artery without angina pectoris (Chronic) I25.10 History of non-ST elevation myocardial infarction (NSTEMI) (Resolved) Onset Date: 07/21/17 I25.2 Ischemic cardiomyopathy (Chronic) I25.5 History of CVA (cerebrovascular accident) (Chronic) Onset Date: 07/2017 Z86.73 Right bundle branch block (RBBB) (Chronic) I45.10 Carotid artery stenosis (Chronic) I65.29 R CEA 2018 Essential (primary) hypertension (Chronic) I10 Claudication of both lower extremities (Chronic) I73.9 Peripheral vascular occlusive disease (Chronic) I73.9 RLE DM2 (diabetes mellitus, type 2) E11.9 Hepatic steatosis K76.0 Hydrocele, right N43.3 Pleural effusion (Resolved) J90 Empyema of left pleural space (Ruled-out) J86.9 Allergies Ertxqkh-Rpl-Dyp Reductase Inhibitor Adverse Reaction (Severe, Verified 07/22/20 12:09) mylagias lisinopril Adverse Reaction (Verified 07/22/20 12:09) cough Home Medications: Ambulatory Orders Medication Instructions Recorded insulin human U-100 NPH-regulr 12 unit SC .COMPLEX 11/18/17 70-30 mix 100 unit/mL subcutaneous susp ascorbic acid (vitamin C) 1,000 mg 1 g PO DAILY tab 11/15/19 tablet aspirin 81 mg tablet,delayed 81 mg PO DAILY 11/15/19 release chromium picolinate 1,000 mcg 1,000 mcg PO DAILY 11/15/19 tablet coenzyme Q10 200 mg capsule 200 mg PO DAILY 11/15/19 dandelion 500 mg capsule 500 mg PO DAILY cap 11/15/19 grape seed extract 50 mg capsule 50 mg PO DAILY cap 11/15/19 pantoprazole 40 mg tablet,delayed 40 mg PO DAILY tab 11/15/19 release losartan 25 mg tablet 25 mg PO DAILY #30 tab 05/16/20 montelukast 10 mg tablet 10 mg PO DAILY 05/16/20 Surgical History: Surgical History (Last Reviewed 07/24/20 @ 17:[address] Clarita Carbajal, DPM) H/O coronary artery bypass surgery (Resolved) Onset Date: 08/04/17 Z95.1 History of bronchoscopy Onset Date: 08/25/19 Z98.890 LUNG, RIGHT LOWER LOBE, BIOPSY - FEATURES SUGGEST ORGANIZING INFLAMMATION. SEE COMMENT. 08/25/2019 COMMENT; There is no evidence of malignancy. Immunohistochemical stain for S100 is negative for Langerhans cells. Special stains for AFB and GMS were negative for fungal elements and mycobacteria, respectively. History of right-sided carotid endarterectomy Onset Date: 09/24/17 Z98.890 09/24/[address] Reyes @ [facility] History of thoracentesis Onset Date: 07/2019 Z98.890 left Surgical History: coronary bypass surgery, - - CABG x3, right CEA. Psychiatric History: No pertinent psych hx Lives: Alone Smoking Status: Never smoker Tobacco Use: Non-smoker Alcohol: None Drugs: None - *Family History Paternal History Items: Heart Disease Maternal History Items: - - Patient denies any market maternal family history including heart disease, diabetes, cancer. 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 (Acute) 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 without evidence of necrosis (Acute) - Physical Exam Vitals/I&O's: Vital Signs Temp Pulse Resp BP Pulse Ox 99.0 F 89 18 151/86 H 95 07/26/20 15:02 07/26/20 15:02 07/26/20 15:02 07/26/20 15:02 07/26/20 15:02 Oxygen Delivery Method Room Air Weight: 198 lb 3.129 oz Body Mass Index (BMI) 24.6 Orthostatic Vital Signs Start: 07/22/20 22:54 Freq: q24h Status: Active Protocol: Activity Type Activity Date Activity User E-Sign Co-Sign Detail Recorded Client Recorded Date Recorded By Document 07/25/20 16:00 bm [id number] 07/25/20 16:24 bm 07/25/20 16:00 Orthostatic Vitals Standing -Blood Pressure (90/60-120/80) 155/83 H -Extremity Use Right Arm -Pulse Rate (60-100) 70 Sitting -Blood Pressure (90/60-120/80) 149/76 H -Extremity Use Right Arm -Pulse Rate (60-100) 80 Lying -Blood Pressure (90/60-120/80) 154/85 H -Extremity Use Right Arm -Pulse Rate (60-100) 83 Intake and Output for Last 24 Hours 07/24/20 07/25/20 07/26/20 23:59 23:59 23:59 Intake Total 3864.00 / 3864.00 2965 / 3085 2514 / 2514 Output Total 675 / 675 500 / 925 1025 / 1025 Balance 3189.00 / 3189.00 2465 / 2160 1489 / 1489 General: Alert, No apparent distress Oral: Moist Mucosa Lungs: Clear to auscultation, Diminished - Diminished in bases Cardiovascular: Regular rate, Regular Rhythm, - - Bilateral femorals are 3+. Bilateral popliteals 3+. Bilateral PT and DP pulses are absent Extremities: - - Significant changes bilateral feet with hair loss and shiny skin and bulbous toes and dependent rubor and elevation pallor and hypertrophic nails Right great toe is in dressing with staining through Neurological: - - Thought not completely logical in order Microbiology Past 72 Hours 07/25/20 08:30 Other - Toe Miscellaneous Culture - Preliminary Staphylococcus aureus 07/25/20 08:30 Other - Toe Gram Stain - Final 07/24/20 16:50 Wound - Toe Gram Stain - Final 07/24/20 16:50 Wound - Toe Wound Culture - Final Staphylococcus aureus 07/24/20 16:50 Wound - Toe Anaerobic Culture - Preliminary Checking for anaerobes, further studies to follow. 07/25/20 18:25 Mucosa - Nose SARS-CoV-2 Antigen (Rapid) - Final 07/22/20 12:25 Blood Culture (Wb) - Left Hand Blood Culture - Preliminary No growth in 48 hours. 07/22/20 12:23 Blood Culture (Wb) - Left Forearm Blood Culture - Preliminary No growth in 48 hours. Laboratory Results 07/25/20 16:48: POC Glucose 138 H 07/25/20 22:24: POC Glucose 134 H 07/26/20 04:58: WBC 12.7 H, RBC 3.82 L, Hgb 11.2 L, Hct 36.8 L, MCV 96.3 H D, MCH 29.3, MCHC 30.4 L D, RDW Std Deviation 50.4 H, RDW Coeff of Sacha 14.4, Plt Count 243, MPV 11.6, Immature Gran % (Auto) 0.400, Neut % (Auto) 77.2 H, Lymph % (Auto) 9.8 L, [place] % (Auto) 9.0, Eos % (Auto) 3.1, Baso % (Auto) 0.5, Absolute Neuts (auto) 9.8 H, Absolute Lymphs (auto) 1.24, Nucleated RBC % 0 07/26/20 04:58: Sodium 136, Potassium 3.6, Chloride 107, Carbon Dioxide 23.0, Anion Gap 6, BUN 15, Creatinine 0.83, Estim Creat Clear Calc 80.51, Est GFR (MDRD) Af Amer 114, Est GFR (MDRD) Non-Af 95, BUN/Creatinine Ratio 18.0, Glucose 104, Calcium 8.1 L 07/26/20 07:34: POC Glucose 118 H 07/26/20 12:38: POC Glucose 147 H Current Medications Acetaminophen (Acetaminophen 325 Mg Tablet) 650 mg PO Q6H PRN PRN PRN Reason: Pain Score 1-10/Temp > 100.7 F Last Admin: 07/25/20 22:28 Dose: 650 mg Documented by: Al Hydroxide/Mg Hydroxide (Mag Hydrox/Al Hydrox/Simeth 30 Ml Udc) 30 ml PO Q6H PRN PRN PRN Reason: Gastric Burning Albuterol Sulfate (Albuterol 2.5 Mg/3 Ml Vial.Neb.) 2.5 mg INHALATION Q2H PRN PRN PRN Reason: Dyspnea, wheezing Aspirin (Aspirin 81 Mg Tab.Chew) 81 mg PO DAILY@0800 [facility] Last Admin: 07/26/20 08:26 Dose: 81 mg Documented by: Clotrimazole (Clotrimazole 1 Tube) 1 applicatio TOPICAL BID [facility]; Protocol Last Admin: 07/26/20 09:45 Dose: 1 applicatio Documented by: Enoxaparin Sodium (Enoxaparin 40 Mg/0.4 Ml Syringe) 40 mg SC DAILY@0600 [facility] Last Admin: 07/26/20 05:05 Dose: 40 mg Documented by: Guaifenesin (Guaifenesin 10 Ml Udc (200mg/10ml)) 20 ml PO Q4H PRN PRN PRN Reason: COUGH Last Admin: 07/24/20 03:35 Dose: 20 ml Documented by: Hydralazine HCl (Hydralazine 20 Mg/Ml Vial) 10 mg IV Q4H PRN PRN PRN Reason: SBP > 160 Sodium Chloride () 1,000 mls @ 100 mls/hr IV .Q10H [facility] Last Infusion: 07/26/20 14:37 Dose: 100 mls/hr Documented by: Ampicillin Sodium/Sulbactam (Sodium 3 gm/ Sodium Chloride) 112 mls @ 150 mls/hr IV Q8 [facility] Last Infusion: 07/26/20 14:37 Dose: Infused Documented by: Vancomycin IV Pharmacy to Dose (1 ea/ Sodium Chloride) 500 mls @ 250 mls/hr IV X1 PRN; Protocol PRN Reason: Rx to Dose Vancomycin HCl (Vancomycin) 1,000 mg in 200 mls @ 200 mls/hr IV Q12H [facility] Last Infusion: 07/26/20 04:37 Dose: Infused Documented by: Insulin Human Lispro (Insulin Lispro 100 Unit/Ml Insuln.Pen) 0 unit SC ACHS [facility]; Protocol Last Admin: 07/26/20 12:39 Dose: Not Given Documented by: Insulin Lispro Protam/Lispro Human (Insulin Human 75/25 [place]) 20 unit SC BREAKFAST [facility] Last Admin: 07/26/20 08:26 Dose: 20 u Documented by: Insulin Lispro Protam/Lispro Human (Insulin Human 75/25 [place]) 10 unit SC DINNER [facility] Last Admin: 07/25/20 18:08 Dose: 10 u Documented by: Losartan Potassium (Losartan Potassium 25 Mg Tablet) 25 mg PO DAILY [facility] Last Admin: 07/26/20 09:39 Dose: 25 mg Documented by: Magnesium Hydroxide (Magnesium Hydroxide 30 Ml Udc) 30 ml PO DAILY PRN PRN PRN Reason: Constipation Melatonin (Melatonin 3 Mg Tablet) 3 mg PO QHS PRN PRN PRN Reason: INSOMNIA Metoprolol Succinate (Metoprolol(Xl)Succ 25 Mg Tablet) 12.5 mg PO DAILY [facility] Last Admin: 07/26/20 09:39 Dose: 12.5 mg Documented by: Montelukast Sodium (Montelukast 10 Mg Tablet) 10 mg PO DAILY [facility] Last Admin: 07/26/20 09:39 Dose: 10 mg Documented by: Nitroglycerin (Nitroglycerin (Inpatient Use) 0.4 Mg Tab.Subl) 0.4 mg SUBLINGUAL Q5M PRN PRN Reason: CARDIAC/CHEST PAIN Ondansetron HCl (Ondansetron 4 Mg/2 Ml Vial) 4 mg IV Q8H PRN PRN PRN Reason: NAUSEA/VOMITING Oxycodone HCl (Oxycodone 5 Mg Tablet) 5 mg PO Q4H PRN PRN PRN Reason: Pain Score 4-5 Pantoprazole Sodium (Pantoprazole Sodium 40 Mg Tablet) 40 mg PO DAILY [facility] Last Admin: 07/26/20 09:39 Dose: 40 mg Documented by: Prochlorperazine Edisylate (Prochlorperazine 10 Mg/2 Ml Vial) 5 mg IV Q4H PRN PRN PRN Reason: Breakthrough Nausea/Vomiting Psyllium Hydrophilic Mucilloid (Psyllium 1 Packet) 1 packet PO DAILY PRN PRN PRN Reason: Constipation Senna/Docusate Sodium (Senna/Docusate Sodium 1 Tablet) 2 tablet PO BID PRN PRN PRN Reason: Constipation Sodium Chloride (0.9% Saline Lock 10 Ml Syringe) 10 - 40 ml IV UD PRN PRN Reason: SALINE FLUSH Last Admin: 07/24/20 22:19 Dose: 10 ml Documented by: Throat Lozenges (Benzocaine/Menthol 1 Lozenge) 1 lozenge MUCOUS MEM Q2H PRN PRN PRN Reason: SORE THROAT Last Admin: 07/24/20 22:14 Dose: 1 lozenge Documented by: Assessment/Plan All Active Problems (Last Reviewed 05/16/20 @ 13:29 by Seema Yanes PA, PA) Elevation of cardiac enzymes (Acute) Near syncope (Acute) 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 He is desiring to be discharged from the hospital. He seems to be not completely cognizant that the right great toe has a severe infection and is not retrievable with antibiotic therapy alone. With the patient's son present I described to him that he has severe critical ischemia to the right foot and great toe. Based upon clinical examination and noninvasive testing he has severe occlusive disease of his infrageniculate vessels. His vessels are noncompressible consistent with diffuse calcific disease which diminishes the possibility of endovascular success. I have described to him the technique of retrograde access left common femoral artery with then a right lower extremity arteriogram with attempt at endovascular intervention. We have discussed the technique, benefit, risk and alternatives. Absolutely no guarantees of success were offered. The patient was instructed that blood flow actually could be worse after intervention. It is my impression that he will not resolve his infection without improve blood flow. I believe that he is at risk for losing the toe or losing the foot or losing the leg and this has been described to the patient and his son. They have had an opportunity to ask and have questions answered. They are aware that I am not available for this procedure until July 30. Dr. Ledezma is also aware that I am not cosmetic surgeon today or this weekend. I have contacted the specials procedures laboratory and have tentatively scheduled him for an endovascular procedure on Thursday, July 30, 2020. We will proceed at his discretion. I appreciate the opportunity of assisting with her surgical care Julio Cesar Suarez M.D., F.A.C.S.
[2020-07-26] MEDS: Insulin Human 75/25 Kwickpen 10 UNIT SC (16:12)
[2020-07-26] MEDS: Insulin Lispro 100 UNIT/ML INSULN.PEN SC (16:12)
[2020-07-26 16:41] LABS: Bedside Glucose 194 mg/dL (70-110)
--- NOTE | 2020-07-26 19:00 | PCS.PANDOC ---
PANDEMIC DOCUMENTATION INITIATED: Date: 07/22/20 Time: 18:40
[2020-07-26] MEDS: BENZOCAINE/MENTHOL 1 LOZENGE MUCOUS MEM (22:01)
[2020-07-26 22:16] LABS: Bedside Glucose 112 mg/dL (70-110)
[2020-07-27] VITALS (12 sets, daily range): BP systolic 111–151; BP diastolic 70–85; PULSE 49–96; RESP 18–28; TEMP 36.3–37; O2SAT 95–100
[2020-07-27] MEDS: Acetaminophen 325 MG Tablet 650 MG PO (03:44)
[2020-07-27] MEDS: guaiFENesin 10 ML UDC (200MG/10ML) 20 ML PO ×3 (03:44→18:21)
[2020-07-27] MEDS: Vancomycin IV 1,000 MG/200 ML BAG 200 MG IV (03:48)
[2020-07-27 03:54] LABS: Anion Gap 6 (5-15); BUN 14 mg/dL (7-18); BUN/Creat Ratio 16.6 RATIO (10-20); Calcium,Total 8.2 mg/dL (8.5-10.1); Chloride 108 mmol/L (98-107); Creatinine, Serum 0.84 mg/dL (0.70-1.30); EST Glomerular Filtration Rate 93 mL/min (>60); Est Glom Filt Rate - Afr Amer 113 mL/min (>60); Estimated Creatinine Clearance 79.55 ml/min; Glucose 112 mg/dL (74-106); Magnesium 1.5 mg/dL (1.6-2.6); Potassium 3.7 mmol/L (3.5-5.1); Sodium Level 138 mmol/L (136-145)
[2020-07-27 03:57] LABS: Vancomycin, Trough Level 11.2 ug/mL (5.0-15.0)
[2020-07-27] MEDS: Albuterol 2.5 MG/3 ML VIAL.NEB. INHALATION ×2 (04:05→18:37)
[2020-07-27] MEDS: Magnesium Sulfate 4gm/100mL 4 GM/100 ML IV.SOLN. IV (04:41)
[2020-07-27] MEDS: Enoxaparin 40 MG/0.4 ML Syringe SC (05:03)
--- NOTE | 2020-07-27 06:23 | PCM.RX.CS ---
Consult Pharmacy has been consulted to manage selected antiobiotic: Vancomycin Type of Consult: Follow-up Labs: Sodium 138 mmol/L (136-145) 07/27/20 03:25 Potassium 3.7 mmol/L (3.5-5.1) 07/27/20 03:25 Chloride 108 mmol/L (98-107) H 07/27/20 03:25 Carbon Dioxide 24.0 mmol/L (21.0-32.0) 07/27/20 03:25 Anion Gap 6 (5-15) 07/27/20 03:25 BUN 14 mg/dL (7-18) 07/27/20 03:25 Creatinine 0.84 mg/dL (0.70-1.30) 07/27/20 03:25 Est GFR (MDRD) Af Amer 113 mL/min (>60) 07/27/20 03:25 Est GFR (MDRD) Non-Af 93 mL/min (>60) 07/27/20 03:25 BUN/Creatinine Ratio 16.6 RATIO (10-20) 07/27/20 03:25 Glucose 112 mg/dL (74-106) H 07/27/20 03:25 Vancomycin Trough 11.2 ug/mL (5.0-15.0) 07/27/20 03:25 Microbiology: Microbiology 07/25/20 08:30 Other - Toe Miscellaneous Culture - Preliminary Staphylococcus aureus 07/25/20 08:30 Other - Toe Gram Stain - Final 07/24/20 16:50 Wound - Toe Gram Stain - Final 07/24/20 16:50 Wound - Toe Wound Culture - Final Staphylococcus aureus 07/24/20 16:50 Wound - Toe Anaerobic Culture - Preliminary Checking for anaerobes, further studies to follow. 07/25/20 18:25 Mucosa - Nose SARS-CoV-2 Antigen (Rapid) - Final 07/22/20 12:25 Blood Culture (Wb) - Left Hand Blood Culture - Preliminary No growth in 48 hours. 07/22/20 12:23 Blood Culture (Wb) - Left Forearm Blood Culture - Preliminary No growth in 48 hours. 07/22/20 19:25 Mucosa - Nasopharyngeal Respiratory Panel (PCR) - Final 07/22/20 12:39 Mucosa - Nose SARS-CoV-2 Antigen (Rapid) - Final Goal Trough: 15-20 mcg/mL Pharmacy Plan for Drug Dosing: Pharmacy Service will continue to monitor and adjust dosing as required. TROUGH 11.2 INCREASE TO 1250MG Q12H Follow-Up Labs: Trough Vancomycin Labs to be done on [date and time ordered]: 07/29 @ [id number]
--- NOTE | 2020-07-27 07:00 | RAD_ITS ---
STUDY: X-RAY CHEST REASON FOR EXAM: Male, 79 years old. SOB, HX NEAR SYNCOPE TECHNIQUE: PA and lateral views of the chest. COMPARISON: 07/22/2020 FINDINGS: Status post median sternotomy. Alveolar opacity in both lung bases consistent with bibasilar pneumonia. Small left pleural effusion which is unchanged. There is moderate cardiac enlargement. Normal mediastinum and pretty. Normal visualized pulmonary arteries. Normal visualized aortic arch and descending thoracic aorta. Normal visualized thoracic spine. Normal visualized ribs, clavicles, and shoulders. There is no demonstrated abnormality of the visualized soft tissue structures of the upper abdomen. RAD/Chest PA and Lateral IMPRESSION: Bibasilar pneumonia with a small left pleural effusion. Electronically Signed: See Pineda MD at 9:14 EST Tel , Service support ,
--- NOTE | 2020-07-27 07:38 | PN_ITS ---
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 (Acute) Reason for Visit: Adult failure to thrive Osteomyelitis involving the right big toe Subjective: Patient is a 79-year-old gentleman with multiple comorbidities admitted with ge neralized weakness and falls Objective: GENERAL: cooperative HEENT: Atraumatic; EYES; Anicteric, Normal Conjunctiva NECK; supple, normal thyroid, RESPIRATORY: Diminished to auscultation CARDIOVASCULAR: Regular S1 S2, GI: soft, normoactive bowel sounds, : No Renal angle tenderness; EXTREMITIES: Right big toe in surgical dressing MUSCULOSKELETAL: no muscle waisting NEURO: Awake; no lateralizing signs. SKIN: No Rash PSYCH; Flat affect Vitals/I&O's: Vital Signs Temp Pulse Resp BP Pulse Ox 97.6 F L 70 22 H 145/70 H 96 07/27/20 05:10 07/27/20 05:10 07/27/20 05:10 07/27/20 05:10 07/27/20 05:10 Oxygen Flow Rate (L/min) 2 Oxygen Delivery Method Nasal Cannula Weight: 89.5 kg Body Mass Index (BMI) 24.6 Intake and Output for Last 24 Hours 07/25/20 07/26/20 07/27/20 23:59 23:59 23:59 Intake Total 2965 / 3085 3486.00 / 3606.00 1173.67 / 1173.67 Output Total 500 / 925 1025 / 1425 600 / 600 Balance 2465 / 2160 2461.00 / 2181.00 573.67 / 573.67 Microbiology Past 72 Hours 07/25/20 08:30 Other - Toe Miscellaneous Culture - Final Staphylococcus aureus 07/25/20 08:30 Other - Toe Gram Stain - Final 07/24/20 16:50 Wound - Toe Gram Stain - Final 07/24/20 16:50 Wound - Toe Wound Culture - Final Staphylococcus aureus 07/24/20 16:50 Wound - Toe Anaerobic Culture - Preliminary Checking for anaerobes, further studies to follow. 07/25/20 18:25 Mucosa - Nose SARS-CoV-2 Antigen (Rapid) - Final 07/22/20 12:25 Blood Culture (Wb) - Left Hand Blood Culture - Preliminary No growth in 48 hours. 07/22/20 12:23 Blood Culture (Wb) - Left Forearm Blood Culture - Preliminary No growth in 48 hours. Laboratory Results 07/26/20 07:34: POC Glucose 118 H 07/26/20 12:38: POC Glucose 147 H 07/26/20 16:10: POC Glucose 194 H 07/26/20 21:51: POC Glucose 112 H 07/27/20 03:25: Vancomycin Trough 11.2 07/27/20 03:25: Sodium 138, Potassium 3.7, Chloride 108 H, Carbon Dioxide 24.0, Anion Gap 6, BUN 14, Creatinine 0.84, Estim Creat Clear Calc 79.55, Est GFR (MDRD) Af Amer 113, Est GFR (MDRD) Non-Af 93, BUN/Creatinine Ratio 16.6, Glucose 112 H, Calcium 8.2 L, Magnesium 1.5 L Current Medications Acetaminophen (Acetaminophen 325 Mg Tablet) 650 mg PO Q6H PRN PRN PRN Reason: Pain Score 1-10/Temp > 100.7 F Last Admin: 07/27/20 03:44 Dose: 650 mg Documented by: Al Hydroxide/Mg Hydroxide (Mag Hydrox/Al Hydrox/Simeth 30 Ml Udc) 30 ml PO Q6H PRN PRN PRN Reason: Gastric Burning Albuterol Sulfate (Albuterol 2.5 Mg/3 Ml Vial.Neb.) 2.5 mg INHALATION Q2H PRN PRN PRN Reason: Dyspnea, wheezing Last Admin: 07/27/20 04:05 Dose: 2.5 mg Documented by: Aspirin (Aspirin 81 Mg Tab.Chew) 81 mg PO DAILY@0800 [facility] Last Admin: 07/26/20 08:26 Dose: 81 mg Documented by: Clotrimazole (Clotrimazole 1 Tube) 1 applicatio TOPICAL BID [facility]; Protocol Last Admin: 07/26/20 21:56 Dose: 1 applicatio Documented by: Enoxaparin Sodium (Enoxaparin 40 Mg/0.4 Ml Syringe) 40 mg SC DAILY@0600 [facility] Last Admin: 07/27/20 05:03 Dose: 40 mg Documented by: Guaifenesin (Guaifenesin 10 Ml Udc (200mg/10ml)) 20 ml PO Q4H PRN PRN PRN Reason: COUGH Last Admin: 07/27/20 03:44 Dose: 20 ml Documented by: Hydralazine HCl (Hydralazine 20 Mg/Ml Vial) 10 mg IV Q4H PRN PRN PRN Reason: SBP > 160 Ampicillin Sodium/Sulbactam (Sodium 3 gm/ Sodium Chloride) 112 mls @ 150 mls/hr IV Q8 [facility] Last Infusion: 07/27/20 06:04 Dose: Infused Documented by: Vancomycin IV Pharmacy to Dose (1 ea/ Sodium Chloride) 500 mls @ 250 mls/hr IV X1 PRN; Protocol PRN Reason: Rx to Dose Magnesium Sulfate () 4 gm in 100 mls @ 25 mls/hr IV X1 ONE Stop: 07/27/20 08:20 Last Admin: 07/27/20 04:41 Dose: 25 mls/hr Documented by: Vancomycin HCl 1,250 mg/ (Sodium Chloride) 275 mls @ 167 mls/hr IV Q12H [facility] Insulin Human Lispro (Insulin Lispro 100 Unit/Ml Insuln.Pen) 0 unit SC ACHS [facility]; Protocol Last Admin: 07/26/20 21:54 Dose: Not Given Documented by: Insulin Lispro Protam/Lispro Human (Insulin Human 75/25 Kwickpen) 20 unit SC BREAKFAST [facility] Last Admin: 07/26/20 08:26 Dose: 20 u Documented by: Insulin Lispro Protam/Lispro Human (Insulin Human 75/25 [place]) 10 unit SC DINNER [facility] Last Admin: 07/26/20 16:12 Dose: 10 u Documented by: Losartan Potassium (Losartan Potassium 25 Mg Tablet) 25 mg PO DAILY [facility] Last Admin: 07/26/20 09:39 Dose: 25 mg Documented by: Magnesium Hydroxide (Magnesium Hydroxide 30 Ml Udc) 30 ml PO DAILY PRN PRN PRN Reason: Constipation Melatonin (Melatonin 3 Mg Tablet) 3 mg PO QHS PRN PRN PRN Reason: INSOMNIA Metoprolol Succinate (Metoprolol(Xl)Succ 25 Mg Tablet) 12.5 mg PO DAILY [facility] Last Admin: 07/26/20 09:39 Dose: 12.5 mg Documented by: Montelukast Sodium (Montelukast 10 Mg Tablet) 10 mg PO DAILY [facility] Last Admin: 07/26/20 09:39 Dose: 10 mg Documented by: Nitroglycerin (Nitroglycerin (Inpatient Use) 0.4 Mg Tab.Subl) 0.4 mg SUBLINGUAL Q5M PRN PRN Reason: CARDIAC/CHEST PAIN Ondansetron HCl (Ondansetron 4 Mg/2 Ml Vial) 4 mg IV Q8H PRN PRN PRN Reason: NAUSEA/VOMITING Oxycodone HCl (Oxycodone 5 Mg Tablet) 5 mg PO Q4H PRN PRN PRN Reason: Pain Score 4-5 Pantoprazole Sodium (Pantoprazole Sodium 40 Mg Tablet) 40 mg PO DAILY [facility] Last Admin: 07/26/20 09:39 Dose: 40 mg Documented by: Prochlorperazine Edisylate (Prochlorperazine 10 Mg/2 Ml Vial) 5 mg IV Q4H PRN PRN PRN Reason: Breakthrough Nausea/Vomiting Psyllium Hydrophilic Mucilloid (Psyllium 1 Packet) 1 packet PO DAILY PRN PRN PRN Reason: Constipation Senna/Docusate Sodium (Senna/Docusate Sodium 1 Tablet) 2 tablet PO BID PRN PRN PRN Reason: Constipation Sodium Chloride (0.9% Saline Lock 10 Ml Syringe) 10 - 40 ml IV UD PRN PRN Reason: SALINE FLUSH Last Admin: 07/24/20 22:19 Dose: 10 ml Documented by: Throat Lozenges (Benzocaine/Menthol 1 Lozenge) 1 lozenge MUCOUS MEM Q2H PRN PRN PRN Reason: SORE THROAT Last Admin: 07/26/20 22:01 Dose: 1 lozenge Documented by: STROKE Vital Signs/Narrative: Vital Signs Temp Pulse Resp BP Pulse Ox 07/27/20 05:10 97.6 F L 70 22 H 145/70 H 96 07/27/20 04:07 86 28 H 07/27/20 03:50 98.6 F 96 26 H 151/85 H 95 Medical Necessity - Tobacco Use Smoking Status: Never smoker Tobacco Use: Non-smoker Assessment/Plan All Active Problems (Last Reviewed 05/16/20 @ 13:29 by Seema Yanes PA, PA) Elevation of cardiac enzymes (Acute) Near syncope (Acute) 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 Right great toe cellulitis with osteomyelitis ?Cultures so far positive for MSSA ID on consult patient is on vancomycin and Unasyn. Patient is scheduled to undergo bone biopsy by podiatry surgery on 2. Physical deconditioning - Requested for PT OT eval and director of social services to assist with discharge planning 3. Elevated troponin -secondary to demand ischemia patient underwent a nuclear stress test which was negative for stress-induced ischemia 4. Coronary artery disease ?With previous CABG 5. Diabetes mellitus type II -patient's oral hypoglycemics held. -Placed on long acting insulin, Accu-Cheks a.c. and at bedtime and covered with sliding scale insulin 6. Peripheral arterial disease ?Patient ABIs performed consistent with moderately severe right lower extremity arterial occlusive disease consult subsequently placed to vascular surgery . Carotid artery disease ?Patient has undergone previous right CEA 8. Hypertension - Blood pressure controlled, home medications continued with dose adjustment as needed 9. Dyslipidemia ?Patient is not on statin therapy due to allergy 10. GERD on PPI 11. DVT prophylaxis ?Lovenox 12. Hypomagnesemia ?Corrected per protocol Inpatient E&M: 23660 Subs Hosp L2
[2020-07-27] MEDS: Aspirin 81 MG TAB.CHEW PO (08:56)
[2020-07-27] MEDS: Insulin Human 75/25 Kwickpen 20 UNIT SC (08:57)
[2020-07-27] MEDS: Losartan Potassium 25 MG Tablet PO (08:58)
[2020-07-27] MEDS: Pantoprazole Sodium 40 MG Tablet PO (08:59)
[2020-07-27] MEDS: Metoprolol(XL)Succ 25 MG Tablet 12.5 MG PO (08:59)
[2020-07-27] MEDS: Montelukast 10 MG Tablet PO (08:59)
[2020-07-27 09:06] LABS: Bedside Glucose 128 mg/dL (70-110)
[2020-07-27 11:30] LABS: Bedside Glucose 166 mg/dL (70-110)
--- NOTE | 2020-07-27 13:55 | PN_ITS ---
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 Patient denies any new pedal complaints. Patient denies nausea, fever, vomiting, chills, chest pain, shortness of breath, streaking, purulence - Physical Exam Vitals/I&O's: Vital Signs Temp Pulse Resp BP Pulse Ox 97.5 F L 75 18 111/71 100 07/27/20 08:53 07/27/20 08:59 07/27/20 08:53 07/27/20 08:59 07/27/20 08:53 Oxygen Flow Rate (L/min) 2 Oxygen Delivery Method Nasal Cannula Weight: 89.5 kg Body Mass Index (BMI) 24.6 Intake and Output for Last 24 Hours 07/25/20 07/26/20 07/27/20 23:59 23:59 23:59 Intake Total 2965 / 3085 3486.00 / 3606.00 1623.67 / 1623.67 Output Total 500 / 925 1025 / 1425 1050 / 1050 Balance 2465 / 2160 2461.00 / 2181.00 573.67 / 573.67 General: Alert, Oriented x3 HEENT: Atraumatic Extremities: No clubbing, No cyanosis, Capillary Refill Less than 3 Seconds, No Calf Tenderness, Cool - hallux right wound site, Diminished Peripheral Pulses, Edema, Tenderness - right toes, worse than yesterday Skin: Ulcer/ Wound - Right hallux ulcer, no malodor, probes to bone, mild sanginous drainage, periwound erythema and edema no change, periwound area is warm wound is cool with necrotic base, increase in necrotic tissue noted to base, no pus Musculoskeletal: Muscle Wasting, Tenderness - right toes Neurological: - - decreased epicritic sensation Psych/Mental Status: Normal Affect, Appropriate Microbiology Past 72 Hours 07/22/20 12:25 Blood Culture (Wb) - Left Hand Blood Culture - Final No growth in 5 days. 07/22/20 12:23 Blood Culture (Wb) - Left Forearm Blood Culture - Final No growth in 5 days. 07/25/20 08:30 Other - Toe Miscellaneous Culture - Final Staphylococcus aureus 07/25/20 08:30 Other - Toe Gram Stain - Final 07/24/20 16:50 Wound - Toe Gram Stain - Final 07/24/20 16:50 Wound - Toe Wound Culture - Final Staphylococcus aureus 07/24/20 16:50 Wound - Toe Anaerobic Culture - Preliminary Checking for anaerobes, further studies to follow. 07/25/20 18:25 Mucosa - Nose SARS-CoV-2 Antigen (Rapid) - Final Laboratory Results 07/26/20 16:10: POC Glucose 194 H 07/26/20 21:51: POC Glucose 112 H 07/27/20 03:25: Vancomycin Trough 11.2 07/27/20 03:25: Sodium 138, Potassium 3.7, Chloride 108 H, Carbon Dioxide 24.0, Anion Gap 6, BUN 14, Creatinine 0.84, Estim Creat Clear Calc 79.55, Est GFR (MDRD) Af Amer 113, Est GFR (MDRD) Non-Af 93, BUN/Creatinine Ratio 16.6, Glucose 112 H, Calcium 8.2 L, Magnesium 1.5 L 07/27/20 08:48: POC Glucose 128 H 07/27/20 11:25: POC Glucose 166 H Current Medications Acetaminophen (Acetaminophen 325 Mg Tablet) 650 mg PO Q6H PRN PRN PRN Reason: Pain Score 1-10/Temp > 100.7 F Last Admin: 07/27/20 03:44 Dose: 650 mg Documented by: Al Hydroxide/Mg Hydroxide (Mag Hydrox/Al Hydrox/Simeth 30 Ml Udc) 30 ml PO Q6H PRN PRN PRN Reason: Gastric Burning Albuterol Sulfate (Albuterol 2.5 Mg/3 Ml Vial.Neb.) 2.5 mg INHALATION Q2H PRN PRN PRN Reason: Dyspnea, wheezing Last Admin: 07/27/20 04:05 Dose: 2.5 mg Documented by: Aspirin (Aspirin 81 Mg Tab.Chew) 81 mg PO DAILY@0800 [facility] Last Admin: 07/27/20 08:56 Dose: 81 mg Documented by: Clotrimazole (Clotrimazole 1 Tube) 1 applicatio TOPICAL BID [facility]; Protocol Last Admin: 07/27/20 08:59 Dose: 1 applicatio Documented by: Enoxaparin Sodium (Enoxaparin 40 Mg/0.4 Ml Syringe) 40 mg SC DAILY@0600 [facility] Last Admin: 07/27/20 05:03 Dose: 40 mg Documented by: Guaifenesin (Guaifenesin 10 Ml Udc (200mg/10ml)) 20 ml PO Q4H PRN PRN PRN Reason: COUGH Last Admin: 07/27/20 09:02 Dose: 20 ml Documented by: Hydralazine HCl (Hydralazine 20 Mg/Ml Vial) 10 mg IV Q4H PRN PRN PRN Reason: SBP > 160 Ampicillin Sodium/Sulbactam (Sodium 3 gm/ Sodium Chloride) 112 mls @ 150 mls/hr IV Q8 [facility] Last Infusion: 07/27/20 06:04 Dose: Infused Documented by: Vancomycin IV Pharmacy to Dose (1 ea/ Sodium Chloride) 500 mls @ 250 mls/hr IV X1 PRN; Protocol PRN Reason: Rx to Dose Vancomycin HCl 1,250 mg/ (Sodium Chloride) 275 mls @ 167 mls/hr IV Q12H [facility] Insulin Human Lispro (Insulin Lispro 100 Unit/Ml Insuln.Pen) 0 unit SC ACHS [facility]; Protocol Last Admin: 07/27/20 11:26 Dose: Not Given Documented by: Insulin Lispro Protam/Lispro Human (Insulin Human 75/25 Kwickpen) 20 unit SC B REAKFAST [facility] Last Admin: 07/27/20 08:57 Dose: 20 u Documented by: Insulin Lispro Protam/Lispro Human (Insulin Human 75/25 Kwickpen) 10 unit SC DINNER [facility] Last Admin: 07/26/20 16:12 Dose: 10 u Documented by: Losartan Potassium (Losartan Potassium 25 Mg Tablet) 25 mg PO DAILY [facility] Last Admin: 07/27/20 08:58 Dose: 25 mg Documented by: Magnesium Hydroxide (Magnesium Hydroxide 30 Ml Udc) 30 ml PO DAILY PRN PRN PRN Reason: Constipation Melatonin (Melatonin 3 Mg Tablet) 3 mg PO QHS PRN PRN PRN Reason: INSOMNIA Metoprolol Succinate (Metoprolol(Xl)Succ 25 Mg Tablet) 12.5 mg PO DAILY [facility] Last Admin: 07/27/20 08:59 Dose: 12.5 mg Documented by: Montelukast Sodium (Montelukast 10 Mg Tablet) 10 mg PO DAILY [facility] Last Admin: 07/27/20 08:59 Dose: 10 mg Documented by: Nitroglycerin (Nitroglycerin (Inpatient Use) 0.4 Mg Tab.Subl) 0.4 mg SUBLINGUAL Q5M PRN PRN Reason: CARDIAC/CHEST PAIN Ondansetron HCl (Ondansetron 4 Mg/2 Ml Vial) 4 mg IV Q8H PRN PRN PRN Reason: NAUSEA/VOMITING Oxycodone HCl (Oxycodone 5 Mg Tablet) 5 mg PO Q4H PRN PRN PRN Reason: Pain Score 4-5 Pantoprazole Sodium (Pantoprazole Sodium 40 Mg Tablet) 40 mg PO DAILY [facility] Last Admin: 07/27/20 08:59 Dose: 40 mg Documented by: Prochlorperazine Edisylate (Prochlorperazine 10 Mg/2 Ml Vial) 5 mg IV Q4H PRN PRN PRN Reason: Breakthrough Nausea/Vomiting Psyllium Hydrophilic Mucilloid (Psyllium 1 Packet) 1 packet PO DAILY PRN PRN PRN Reason: Constipation Senna/Docusate Sodium (Senna/Docusate Sodium 1 Tablet) 2 tablet PO BID PRN PRN PRN Reason: Constipation Sodium Chloride (0.9% Saline Lock 10 Ml Syringe) 10 - 40 ml IV UD PRN PRN Reason: SALINE FLUSH Last Admin: 07/24/20 22:19 Dose: 10 ml Documented by: Throat Lozenges (Benzocaine/Menthol 1 Lozenge) 1 lozenge MUCOUS MEM Q2H PRN PRN PRN Reason: SORE THROAT Last Admin: 07/26/20 22:01 Dose: 1 lozenge Documented by: Medical Necessity - Tobacco Use Smoking Status: Never smoker Tobacco Use: Non-smoker Assessment/Plan All Active Problems (Last Reviewed 05/16/20 @ 13:29 by Seema Yanes PA, PA) Elevation of cardiac enzymes (Acute) Near syncope (Acute) 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 (Acute) 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 without evidence of n ecrosis (Acute) Elevated LFTs (Resolved) History of non-ST elevation myocardial infarction (NSTEMI) (Resolved 07/21/17) H/O coronary artery bypass surgery (Resolved 08/04/17) Pleural effusion (Resolved) Empyema of left pleural space (Ruled-out) Right hallux ulceration- suspected osteomyelitis right foot cellulitis PVD DM with neuropathy onychogryphosis Patient seen and examined Right hallux and surrounding foot is erythematous and edematous without change, there is an increase in necrotic tissue Wound cultures taken. Growing staph aureus Bone biopsy taken. Growing staph aureus Continue daily dressing changes with aquacel silver covered by DSD. Patient has noted muscle weakness. Try to not put weight through right hallux. Discussed this with PT and realize that due to patient's high fall risk this may not be feasible. Patient is aware of this and knows that putting weight through toe will slow wound healing. Surgical shoe ordered ESR 46, CRP 97.6, Hgb a1c 5.9 WBC 12.7 Cont antibiotics per ID New LEAS ordered showing Left biphasic with GABBI 1.16 on PT and DP is noncompressible TBI 0.4 as well as on right is monophasic with GABBI 1.49 and TBI 0.19. This is not adaquate to allow for wound healing either of wound or of amputation site. Discussed this with the patient. Given the amount of necrotic tissue build up over hospital stay I don't think he is currently capable of h ealing the wound or an amputation at this time. Would recommend vascular intervention prior to any podiatry intervention. Patient noted to have LEAS done in February 2018 showing right GABBI of 0.39 and TBI of 0.35 and left GABBI 1.06 and TBI 0.53. DP and PT were biphasic bilaterally. Patient denies any intervention or following up with a vascular specialist MRI showed suspicion for OM as well as possible fracture to the distal phalanx of hallux. Follow vascular recommendations Patient is planned to undergo vascular intervention Thursday. Patient is aware that there may not be anything possible to be done to increase the blood flow. He is aware that if this is the case a more proximal amputation may be required in order for healing to occur. Depending on success of vascular intervention Thursday, may move forward with toe amputation to remove infection and necrotic tissue. Will await results of vascular intervention to determine chances of a hallux amputation healing or if a more proximal intervention may need to be discussed. I talked with patient's son yesterday on the phone and reviewed case and options in depth with him. Patient made aware and if patient or son has further questio ns to reach out to nursing to get a hold of me Podiatry will continue to follow. Please contact if any concerns
[2020-07-27] MEDS: Insulin Human 75/25 Kwickpen 10 UNIT SC (17:24)
[2020-07-27 17:31] LABS: Bedside Glucose 166 mg/dL (70-110)
--- NOTE | 2020-07-27 18:55 | NURSING ---
Pt refused insulin dosing of 1 U x 3 this shift. Says he doesnt need insulin when it's just one unit
[2020-07-27] MEDS: Ondansetron 4 MG/2 ML Vial IV (20:54)
[2020-07-27 21:35] LABS: Bedside Glucose 117 mg/dL (70-110)
[2020-07-28] VITALS (11 sets, daily range): BP systolic 125–158; BP diastolic 61–81; PULSE 59–84; RESP 18–22; TEMP 36.3–36.8; O2SAT 93–97
[2020-07-28] MEDS: Acetaminophen 325 MG Tablet 650 MG PO ×2 (01:38→20:02)
[2020-07-28] MEDS: Enoxaparin 40 MG/0.4 ML Syringe SC (05:13)
[2020-07-28] MEDS: Albuterol 2.5 MG/3 ML VIAL.NEB. INHALATION (05:32)
[2020-07-28 06:40] LABS: Hematocrit 34.3 % (40-54); Mean Corp Hgb Conc 32.1 g/dL (32-36); Mean Corpuscular Hgb 29.8 pg (27.0-32.0); Mean Platelet Vol. 11.7 fl (6.2-12.0); Platelet Count 307 K/mm3 (150-450); RBC Distribution Width CV 14.2 % (11.6-14.6); Red Blood Count 3.69 M/mm3 (4.6-6.2); White Blood Count 16.3 K/mm3 (4.4-11.0)
[2020-07-28 07:06] LABS: Anion Gap 8 (5-15); BUN 21 mg/dL (7-18); BUN/Creat Ratio 21.6 RATIO (10-20); Calcium,Total 8.4 mg/dL (8.5-10.1); Chloride 105 mmol/L (98-107); Creatinine, Serum 0.97 mg/dL (0.70-1.30); EST Glomerular Filtration Rate 79 mL/min (>60); Est Glom Filt Rate - Afr Amer 96 mL/min (>60); Estimated Creatinine Clearance 68.89 ml/min; Glucose 156 mg/dL (74-106); Potassium 4.3 mmol/L (3.5-5.1); Sodium Level 136 mmol/L (136-145)
[2020-07-28] MEDS: Insulin Human 75/25 Kwickpen 20 UNIT SC (08:26)
[2020-07-28] MEDS: Aspirin 81 MG TAB.CHEW PO (08:26)
[2020-07-28] MEDS: Insulin Lispro 100 UNIT/ML INSULN.PEN SC (08:26)
[2020-07-28] MEDS: Losartan Potassium 25 MG Tablet PO (08:28)
[2020-07-28] MEDS: Pantoprazole Sodium 40 MG Tablet PO (08:28)
[2020-07-28] MEDS: Montelukast 10 MG Tablet PO (08:28)
[2020-07-28] MEDS: Metoprolol(XL)Succ 25 MG Tablet 12.5 MG PO (08:29)
[2020-07-28 08:41] LABS: Bedside Glucose 156 mg/dL (70-110)
--- NOTE | 2020-07-28 11:16 | PCM.PROGNOTE ---
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 States he did not sleep well overnight. Reports episode of abdominal pain overnight which has since resolved. Denies constipation. Denies other symptoms or complaints. - Physical Exam Vitals/I&O's: Vital Signs Temp Pulse Resp BP Pulse Ox 97.4 F L 84 18 125/81 H 97 07/28/20 10:25 07/28/20 10:25 07/28/20 10:25 07/28/20 10:25 07/28/20 10:25 Oxygen Flow Rate (L/min) 2 Oxygen Delivery Method Nasal Cannula Weight: 201 lb 8.04 oz Body Mass Index (BMI) 24.6 Intake and Output for Last 24 Hours 07/26/20 07/27/20 07/28/20 23:59 23:59 23:59 Intake Total 3486.00 / 3606.00 2472.67 / 2672.67 707 / 707 Output Total 1025 / 1425 1500 / 1700 400 / 400 Balance 2461.00 / 2181.00 972.67 / 972.67 307 / 307 General: Alert, Oriented x3, Cooperative HEENT: Atraumatic, PERRLA, EOMI, Normocephalic Neck: Supple, No JVD, Negative Carotid Bruits Lungs: Clear to auscultation, Normal air movement Cardiovascular: Regular rate, No murmurs Abdomen: Bowel Sounds Present, Soft, Non Tender, Non-Distended Extremities: No clubbing, No cyanosis, No edema, Capillary Refill Less than 3 Seconds Skin: No rashes, No breakdown, - - Right foot dressing dry and intact Musculoskeletal: No Tenderness to Palpation of Joints or Extremities Neurological: Cranial nerves II-XII grossly intact, Neuro grossly intact Psych/Mental Status: Normal Affect, Appropriate Microbiology Past 72 Hours 07/24/20 16:50 Wound - Toe Gram Stain - Final 07/24/20 16:50 Wound - Toe Wound Culture - Final Staphylococcus aureus 07/24/20 16:50 Wound - Toe Anaerobic Culture - Final Anaerobic cocci 07/22/20 12:25 Blood Culture (Wb) - Left Hand Blood Culture - Final No growth in 5 days. 07/22/20 12:23 Blood Culture (Wb) - Left Forearm Blood Culture - Final No growth in 5 days. 07/25/20 08:30 Other - Toe Miscellaneous Culture - Final Staphylococcus aureus 07/25/20 08:30 Other - Toe Gram Stain - Final 07/25/20 18:25 Mucosa - Nose SARS-CoV-2 Antigen (Rapid) - Final Laboratory Results 07/27/20 11:25: POC Glucose 166 H 07/27/20 17:15: POC Glucose 166 H 07/27/20 20:53: POC Glucose 117 H 07/28/20 05:30: Sodium 136, Potassium 4.3, Chloride 105, Carbon Dioxide 23.0, Anion Gap 8, BUN 21 H, Creatinine 0.97, Estim Creat Clear Calc 68.89, Est GFR (MDRD) Af Amer 96, Est GFR (MDRD) Non-Af 79, BUN/Creatinine Ratio 21.6 H, Glucose 156 H, Calcium 8.4 L, Magnesium 2.0 07/28/20 05:30: WBC 16.3 H, RBC 3.69 L, Hgb 11.0 L, Hct 34.3 L, MCV 93.0, MCH 29.8, MCHC 32.1 D, RDW Std Deviation 48.0 H, RDW Coeff of Sacha 14.2, Plt Count 307, MPV 11.7 07/28/20 08:23: POC Glucose 156 H Current Medications Acetaminophen (Acetaminophen 325 Mg Tablet) 650 mg PO Q6H PRN PRN PRN Reason: Pain Score 1-10/Temp > 100.7 F Last Admin: 07/28/20 01:38 Dose: 650 mg Documented by: Al Hydroxide/Mg Hydroxide (Mag Hydrox/Al Hydrox/Simeth 30 Ml Udc) 30 ml PO Q6H PRN PRN PRN Reason: Gastric Burning Albuterol Sulfate (Albuterol 2.5 Mg/3 Ml Vial.Neb.) 2.5 mg INHALATION Q2H PRN PRN PRN Reason: Dyspnea, wheezing Last Admin: 07/28/20 05:32 Dose: 2.5 mg Documented by: Aspirin (Aspirin 81 Mg Tab.Chew) 81 mg PO DAILY@0800 [facility] Last Admin: 07/28/20 08:26 Dose: 81 mg Documented by: Clotrimazole (Clotrimazole 1 Tube) 1 applicatio TOPICAL BID [facility]; Protocol Last Admin: 07/28/20 08:28 Dose: 1 applicatio Documented by: Enoxaparin Sodium (Enoxaparin 40 Mg/0.4 Ml Syringe) 40 mg SC DAILY@0600 [facility] Last Admin: 07/28/20 05:13 Dose: 40 mg Documented by: Guaifenesin (Guaifenesin 10 Ml Udc (200mg/10ml)) 20 ml PO Q4H PRN PRN PRN Reason: COUGH Last Admin: 07/27/20 18:21 Dose: 20 ml Documented by: Hydralazine HCl (Hydralazine 20 Mg/Ml Vial) 10 mg IV Q4H PRN PRN PRN Reason: SBP > 160 Ampicillin Sodium/Sulbactam (Sodium 3 gm/ Sodium Chloride) 112 mls @ 150 mls/hr IV Q8 [facility] Last Infusion: 07/28/20 06:35 Dose: Infused Documented by: Vancomycin IV Pharmacy to Dose (1 ea/ Sodium Chloride) 500 mls @ 250 mls/hr IV X1 PRN; Protocol PRN Reason: Rx to Dose Vancomycin HCl 1,250 mg/ (Sodium Chloride) 275 mls @ 167 mls/hr IV Q12H [facility] Last Infusion: 07/28/20 05:18 Dose: Infused Documented by: Insulin Human Lispro (Insulin Lispro 100 Unit/Ml Insuln.Pen) 0 unit SC ACHS [facility]; Protocol Last Admin: 07/28/20 08:26 Dose: 1 u Documented by: Insulin Lispro Protam/Lispro Human (Insulin Human 75/25 Kwickpen) 20 unit SC BREAKFAST [facility] Last Admin: 07/28/20 08:26 Dose: 20 u Documented by: Insulin Lispro Protam/Lispro Human (Insulin Human 75/25 Kwickpen) 10 unit SC DINNER [facility] Last Admin: 07/27/20 17:24 Dose: 10 u Documented by: Losartan Potassium (Losartan Potassium 25 Mg Tablet) 25 mg PO DAILY [facility] Last Admin: 07/28/20 08:28 Dose: 25 mg Documented by: Magnesium Hydroxide (Magnesium Hydroxide 30 Ml Udc) 30 ml PO DAILY PRN PRN PRN Reason: Constipation Melatonin (Melatonin 3 Mg Tablet) 3 mg PO QHS PRN PRN PRN Reason: INSOMNIA Metoprolol Succinate (Metoprolol(Xl)Succ 25 Mg Tablet) 12.5 mg PO DAILY [facility] Last Admin: 07/28/20 08:29 Dose: 12.5 mg Documented by: Montelukast Sodium (Montelukast 10 Mg Tablet) 10 mg PO DAILY [facility] Last Admin: 07/28/20 08:28 Dose: 10 mg Documented by: Nitroglycerin (Nitroglycerin (Inpatient Use) 0.4 Mg Tab.Subl) 0.4 mg SUBLINGUAL Q5M PRN PRN Reason: CARDIAC/CHEST PAIN Ondansetron HCl (Ondansetron 4 Mg/2 Ml Vial) 4 mg IV Q8H PRN PRN PRN Reason: NAUSEA/VOMITING Last Admin: 07/27/20 20:54 Dose: 4 mg Documented by: Oxycodone HCl (Oxycodone 5 Mg Tablet) 5 mg PO Q4H PRN PRN PRN Reason: Pain Score 4-5 Pantoprazole Sodium (Pantoprazole Sodium 40 Mg Tablet) 40 mg PO DAILY [facility] Last Admin: 07/28/20 08:28 Dose: 40 mg Documented by: Prochlorperazine Edisylate (Prochlorperazine 10 Mg/2 Ml Vial) 5 mg IV Q4H PRN PRN PRN Reason: Breakthrough Nausea/Vomiting Psyllium Hydrophilic Mucilloid (Psyllium 1 Packet) 1 packet PO DAILY PRN PRN PRN Reason: Constipation Senna/Docusate Sodium (Senna/Docusate Sodium 1 Tablet) 2 tablet PO BID PRN PRN PRN Reason: Constipation Sodium Chloride (0.9% Saline Lock 10 Ml Syringe) 10 - 40 ml IV UD PRN PRN Reason: SALINE FLUSH Last Admin: 07/24/20 22:19 Dose: 10 ml Documented by: Throat Lozenges (Benzocaine/Menthol 1 Lozenge) 1 lozenge MUCOUS MEM Q2H PRN PRN PRN Reason: SORE THROAT Last Admin: 07/26/20 22:01 Dose: 1 lozenge Documented by: Medical Necessity - Tobacco Use Smoking Status: Never smoker Tobacco Use: Non-smoker Assessment/Plan All Active Problems (Last Reviewed 05/16/20 @ 13:29 by Seema Yanes PA, PA) Elevation of cardiac enzymes (Acute) Near syncope (Acute) 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 Right great toe cellulitis with osteomyelitis-ID and podiatry following. Cultures growing MSSA. Continue vancomycin and Unasyn. Bone biopsy 07/25/2020 without evidence of acute osteomyelitis. Continue dressing changes as ordered. Pending vascular intervention on Thursday, further debridement of infected tissue versus toe amputation following. Nonweightbearing right hallux. 2. PAD-arterial studies show moderately severe right lower extremity arterial occlusive disease. Vascular surgery consulted. Plan for vascular intervention 07/30/2020. 3. Debility, failure to thrive-history of falls. PT/OT. SNF recommended. 4. Type 2 diabetes itnlzvis-Mqor-Zienn with sliding scale insulin. Hemoglobin A1c 5.9%. 5. CAD with history of CABG/ischemic cardiomyopathy-on aspirin. Allergy to statin. 6. Carotid artery disease-history of right carotid endarterectomy. On aspirin. Allergy to statin as noted above. 7. Hypertension-stable, continue losartan regimen. 8. Hyperlipidemia- allergy to statin. 9. GERD-continue PPI. 10. Abnormal troponin-patient underwent stress test 07/23/2020 which showed no evidence of ischemia. EF 25%. Outpatient follow-up with cardiology. 11. 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 Worsening weakness and falls. Recommend outpatient neuro follow-up. DVT prophylaxis-Lovenox subcu Discharge planning: Patient recommended SNF, unclear at this time if patient is amenable. This patient was seen by AUGUSTA Short under the supervision of Dr. Alejandre. <Antwan Alejandre - Last Filed: 07/28/20 12:28> - Physical Exam Vitals/I&O's: Vital Signs Temp Pulse Resp BP Pulse Ox 97.4 F L 84 18 125/81 H 97 07/28/20 10:25 07/28/20 10:25 07/28/20 10:25 07/28/20 10:25 07/28/20 10:25 Oxygen Flow Rate (L/min) 2 Oxygen Delivery Method Nasal Cannula Weight: 91.4 kg Body Mass Index (BMI) 24.6 Intake and Output for Last 24 Hours 07/26/20 07/27/20 07/28/20 23:59 23:59 23:59 Intake Total 3486.00 / 3606.00 2472.67 / 2672.67 707 / 707 Output Total 1025 / 1425 1500 / 1700 400 / 400 Balance 2461.00 / 2181.00 972.67 / 972.67 307 / 307 Microbiology Past 72 Hours 07/24/20 16:50 Wound - Toe Gram Stain - Final 07/24/20 16:50 Wound - Toe Wound Culture - Final Staphylococcus aureus 07/24/20 16:50 Wound - Toe Anaerobic Culture - Final Anaerobic cocci 07/22/20 12:25 Blood Culture (Wb) - Left Hand Blood Culture - Final No growth in 5 days. 07/22/20 12:23 Blood Culture (Wb) - Left Forearm Blood Culture - Final No growth in 5 days. 07/25/20 08:30 Other - Toe Miscellaneous Culture - Final Staphylococcus aureus 07/25/20 08:30 Other - Toe Gram Stain - Final 07/25/20 18:25 Mucosa - Nose SARS-CoV-2 Antigen (Rapid) - Final Laboratory Results 07/27/20 17:15: POC Glucose 166 H 07/27/20 20:53: POC Glucose 117 H 07/28/20 05:30: Sodium 136, Potassium 4.3, Chloride 105, Carbon Dioxide 23.0, Anion Gap 8, BUN 21 H, Creatinine 0.97, Estim Creat Clear Calc 68.89, Est GFR (MDRD) Af Amer 96, Est GFR (MDRD) Non-Af 79, BUN/Creatinine Ratio 21.6 H, Glucose 156 H, Calcium 8.4 L, Magnesium 2.0 07/28/20 05:30: WBC 16.3 H, RBC 3.69 L, Hgb 11.0 L, Hct 34.3 L, MCV 93.0, MCH 29.8, MCHC 32.1 D, RDW Std Deviation 48.0 H, RDW Coeff of Sacha 14.2, Plt Count 307, MPV 11.7 07/28/20 08:23: POC Glucose 156 H 07/28/20 12:14: POC Glucose 164 H Current Medications Acetaminophen (Acetaminophen 325 Mg Tablet) 650 mg PO Q6H PRN PRN PRN Reason: Pain Score 1-10/Temp > 100.7 F Last Admin: 07/28/20 01:38 Dose: 650 mg Documented by: Al Hydroxide/Mg Hydroxide (Mag Hydrox/Al Hydrox/Simeth 30 Ml Udc) 30 ml PO Q6H PRN PRN PRN Reason: Gastric Burning Albuterol Sulfate (Albuterol 2.5 Mg/3 Ml Vial.Neb.) 2.5 mg INHALATION Q2H PRN PRN PRN Reason: Dyspnea, wheezing Last Admin: 07/28/20 05:32 Dose: 2.5 mg Documented by: Aspirin (Aspirin 81 Mg Tab.Chew) 81 mg PO DAILY@0800 [facility] Last Admin: 07/28/20 08:26 Dose: 81 mg Documented by: Clotrimazole (Clotrimazole 1 Tube) 1 applicatio TOPICAL BID [facility]; Protocol Last Admin: 07/28/20 08:28 Dose: 1 applicatio Documented by: Enoxaparin Sodium (Enoxaparin 40 Mg/0.4 Ml Syringe) 40 mg SC DAILY@0600 [facility] Last Admin: 07/28/20 05:13 Dose: 40 mg Documented by: Guaifenesin (Guaifenesin 10 Ml Udc (200mg/10ml)) 20 ml PO Q4H PRN PRN PRN Reason: COUGH Last Admin: 07/28/20 12:24 Dose: 20 ml Documented by: Hydralazine HCl (Hydralazine 20 Mg/Ml Vial) 10 mg IV Q4H PRN PRN PRN Reason: SBP > 160 Ampicillin Sodium/Sulbactam (Sodium 3 gm/ Sodium Chloride) 112 mls @ 150 mls/hr IV Q8 [facility] Last Admin: 07/28/20 12:19 Dose: 150 mls/hr Documented by: Vancomycin IV Pharmacy to Dose (1 ea/ Sodium Chloride) 500 mls @ 250 mls/hr IV X1 PRN; Protocol PRN Reason: Rx to Dose Vancomycin HCl 1,250 mg/ (Sodium Chloride) 275 mls @ 167 mls/hr IV Q12H [facility] Last Infusion: 07/28/20 05:18 Dose: Infused Documented by: Insulin Human Lispro (Insulin Lispro 100 Unit/Ml Insuln.Pen) 0 unit SC ACHS [facility]; Protocol Last Admin: 07/28/20 08:26 Dose: 1 u Documented by: Insulin Lispro Protam/Lispro Human (Insulin Human 75/25 Kwickpen) 20 unit SC BREAKFAST [facility] Last Admin: 07/28/20 08:26 Dose: 20 u Documented by: Insulin Lispro Protam/Lispro Human (Insulin Human 75/25 Kwickpen) 10 unit SC DINNER [facility] Last Admin: 07/27/20 17:24 Dose: 10 u Documented by: Losartan Potassium (Losartan Potassium 25 Mg Tablet) 25 mg PO DAILY [facility] Last Admin: 07/28/20 08:28 Dose: 25 mg Documented by: Magnesium Hydroxide (Magnesium Hydroxide 30 Ml Udc) 30 ml PO DAILY PRN PRN PRN Reason: Constipation Melatonin (Melatonin 3 Mg Tablet) 3 mg PO QHS PRN PRN PRN Reason: INSOMNIA Metoprolol Succinate (Metoprolol(Xl)Succ 25 Mg Tablet) 12.5 mg PO DAILY [facility] Last Admin: 07/28/20 08:29 Dose: 12.5 mg Documented by: Montelukast Sodium (Montelukast 10 Mg Tablet) 10 mg PO DAILY [facility] Last Admin: 07/28/20 08:28 Dose: 10 mg Documented by: Nitroglycerin (Nitroglycerin (Inpatient Use) 0.4 Mg Tab.Subl) 0.4 mg SUBLINGUAL Q5M PRN PRN Reason: CARDIAC/CHEST PAIN Ondansetron HCl (Ondansetron 4 Mg/2 Ml Vial) 4 mg IV Q8H PRN PRN PRN Reason: NAUSEA/VOMITING Last Admin: 07/27/20 20:54 Dose: 4 mg Documented by: Oxycodone HCl (Oxycodone 5 Mg Tablet) 5 mg PO Q4H PRN PRN PRN Reason: Pain Score 4-5 Pantoprazole Sodium (Pantoprazole Sodium 40 Mg Tablet) 40 mg PO DAILY [facility] Last Admin: 07/28/20 08:28 Dose: 40 mg Documented by: Prochlorperazine Edisylate (Prochlorperazine 10 Mg/2 Ml Vial) 5 mg IV Q4H PRN PRN PRN Reason: Breakthrough Nausea/Vomiting Psyllium Hydrophilic Mucilloid (Psyllium 1 Packet) 1 packet PO DAILY PRN PRN PRN Reason: Constipation Senna/Docusate Sodium (Senna/Docusate Sodium 1 Tablet) 2 tablet PO BID PRN PRN PRN Reason: Constipation Sodium Chloride (0.9% Saline Lock 10 Ml Syringe) 10 - 40 ml IV UD PRN PRN Reason: SALINE FLUSH Last Admin: 07/24/20 22:19 Dose: 10 ml Documented by: Throat Lozenges (Benzocaine/Menthol 1 Lozenge) 1 lozenge MUCOUS MEM Q2H PRN PRN PRN Reason: SORE THROAT Last Admin: 07/26/20 22:01 Dose: 1 lozenge Documented by: Assessment/Plan This patient was seen in conjunction with AUGUSTA Short . I have independently interviewed and examined the patient and reviewed pertinent historical, laboratory, and other data. Please refer to AUGUSTA Short note for details of this patient's presentation, findings, and recommendations. I have reviewed AUGUSTA Short note and concur with documented findings. In brief, Patient is a 79-year-old gentleman with multiple comorbidities admitted with generalized weakness and falls Physical Examination: GENERAL: cooperative HEENT: Atraumatic; EYES; Anicteric, Normal Conjunctiva NECK; supple, normal thyroid, RESPIRATORY: Diminished to auscultation CARDIOVASCULAR: Regular S1 S2, GI: soft, normoactive bowel sounds, : No Renal angle tenderness; EXTREMITIES: Right big toe in surgical dressing MUSCULOSKELETAL: no muscle waisting NEURO: Awake; no lateralizing signs. SKIN: No Rash PSYCH; Flat affect Assessment: 1. Right great toe cellulitis with osteomyelitis with MSSA 2. Physical deconditioning 3. Elevated troponin -secondary to demand ischemia 4. Coronary artery disease ?With previous CABG 5. Diabetes mellitus type II 6. Peripheral arterial disease-with moderately severe right lower extremity arterial occlusive disease 7. Carotid artery disease s/p right CEA 8. Hypertension 9. Dyslipidemia 10. GERD on PPI 11. DVT prophylaxis 12. Hypomagnesemia Recommendations: 1. I have discussed the results of my overview and impressions with the patient 2. Options for management were reviewed Inpatient E&M: 97590 Subs Hosp L2
[2020-07-28 12:21] LABS: Bedside Glucose 164 mg/dL (70-110)
[2020-07-28] MEDS: guaiFENesin 10 ML UDC (200MG/10ML) 20 ML PO ×2 (12:24→20:01)
--- NOTE | 2020-07-28 14:30 | PN_ITS ---
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 Patient denies any new pedal complaints. Patient denies any nausea, fever, and chest pain, shortness of breath, chills, cough, streaking, purulence, vomiting. - Physical Exam Vitals/I&O's: Vital Signs Temp Pulse Resp BP Pulse Ox 97.4 F L 84 18 125/81 H 97 07/28/20 10:25 07/28/20 10:25 07/28/20 10:25 07/28/20 10:25 07/28/20 10:25 Oxygen Flow Rate (L/min) 2 Oxygen Delivery Method Nasal Cannula Weight: 91.4 kg Body Mass Index (BMI) 24.6 Intake and Output for Last 24 Hours 07/26/20 07/27/20 07/28/20 23:59 23:59 23:59 Intake Total 3486.00 / 3606.00 2472.67 / 2672.67 969 / 969 Output Total 1025 / 1425 1500 / 1700 850 / 850 Balance 2461.00 / 2181.00 972.67 / 972.67 119 / 119 General: Alert, Oriented x3 HEENT: Atraumatic Extremities: No clubbing, No cyanosis, Capillary Refill Less than 3 Seconds, No Calf Tenderness, Cool - Right hallux ulceration, Diminished Peripheral Pulses, Edema Skin: Ulcer/ Wound - Right hallux ulcer, no malodor, probes to bone, mild sanginous drainage, periwound erythema and edema no change, periwound area is warm wound is cool with necrotic base, increase in necrotic tissue noted to base, no pus Musculoskeletal: Muscle Wasting, Tenderness - Right toes Neurological: - - Decreased epicritic sensation Psych/Mental Status: Normal Affect, Appropriate Microbiology Past 72 Hours 07/24/20 16:50 Wound - Toe Gram Stain - Final 07/24/20 16:50 Wound - Toe Wound Culture - Final Staphylococcus aureus 07/24/20 16:50 Wound - Toe Anaerobic Culture - Final Anaerobic cocci 07/22/20 12:25 Blood Culture (Wb) - Left Hand Blood Culture - Final No growth in 5 days. 07/22/20 12:23 Blood Culture (Wb) - Left Forearm Blood Culture - Final No growth in 5 days. 07/25/20 08:30 Other - Toe Miscellaneous Culture - Final Staphylococcus aureus 07/25/20 08:30 Other - Toe Gram Stain - Final 07/25/20 18:25 Mucosa - Nose SARS-CoV-2 Antigen (Rapid) - Final Laboratory Results 07/27/20 17:15: POC Glucose 166 H 07/27/20 20:53: POC Glucose 117 H 07/28/20 05:30: Sodium 136, Potassium 4.3, Chloride 105, Carbon Dioxide 23.0, Anion Gap 8, BUN 21 H, Creatinine 0.97, Estim Creat Clear Calc 68.89, Est GFR (MDRD) Af Amer 96, Est GFR (MDRD) Non-Af 79, BUN/Creatinine Ratio 21.6 H, Glucose 156 H, Calcium 8.4 L, Magnesium 2.0 07/28/20 05:30: WBC 16.3 H, RBC 3.69 L, Hgb 11.0 L, Hct 34.3 L, MCV 93.0, MCH 29.8, MCHC 32.1 D, RDW Std Deviation 48.0 H, RDW Coeff of Sacha 14.2, Plt Count 307, MPV 11.7 07/28/20 08:23: POC Glucose 156 H 07/28/20 12:14: POC Glucose 164 H Current Medications Acetaminophen (Acetaminophen 325 Mg Tablet) 650 mg PO Q6H PRN PRN PRN Reason: Pain Score 1-10/Temp > 100.7 F Last Admin: 07/28/20 01:38 Dose: 650 mg Documented by: Al Hydroxide/Mg Hydroxide (Mag Hydrox/Al Hydrox/Simeth 30 Ml Udc) 30 ml PO Q6H PRN PRN PRN Reason: Gastric Burning Albuterol Sulfate (Albuterol 2.5 Mg/3 Ml Vial.Neb.) 2.5 mg INHALATION Q2H PRN PRN PRN Reason: Dyspnea, wheezing Last Admin: 07/28/20 05:32 Dose: 2.5 mg Documented by: Aspirin (Aspirin 81 Mg Tab.Chew) 81 mg PO DAILY@0800 JOSIE Last Admin: 07/28/20 08:26 Dose: 81 mg Documented by: Clotrimazole (Clotrimazole 1 Tube) 1 applicatio TOPICAL BID [facility] [place]; Protocol Last Admin: 07/28/20 08:28 Dose: 1 applicatio Documented by: Enoxaparin Sodium (Enoxaparin 40 Mg/0.4 Ml Syringe) 40 mg SC DAILY@0600 [facility] [place] Last Admin: 07/28/20 05:13 Dose: 40 mg Documented by: Guaifenesin (Guaifenesin 10 Ml Udc (200mg/10ml)) 20 ml PO Q4H PRN PRN PRN Reason: COUGH Last Admin: 07/28/20 12:24 Dose: 20 ml Documented by: Hydralazine HCl (Hydralazine 20 Mg/Ml Vial) 10 mg IV Q4H PRN PRN PRN Reason: SBP > 160 Ampicillin Sodium/Sulbactam (Sodium 3 gm/ Sodium Chloride) 112 mls @ 150 mls/hr IV Q8 [facility] [place] Last Infusion: 07/28/20 13:33 Dose: Infused Documented by: Vancomycin IV Pharmacy to Dose (1 ea/ Sodium Chloride) 500 mls @ 250 mls/hr IV X1 PRN; Protocol PRN Reason: Rx to Dose Vancomycin HCl 1,250 mg/ (Sodium Chloride) 275 mls @ 167 mls/hr IV Q12H [facility] [place] Last Infusion: 07/28/20 05:18 Dose: Infused Documented by: Insulin Human Lispro (Insulin Lispro 100 Unit/Ml Insuln.Pen) 0 unit SC ACHS [facility] [place]; Protocol Last Admin: 07/28/20 12:26 Dose: Not Given Documented by: Insulin Lispro Protam/Lispro Human (Insulin Human 75/25 [place]) 20 unit SC BREAKFAST [facility] [place] Last Admin: 07/28/20 08:26 Dose: 20 u Documented by: Insulin Lispro Protam/Lispro Human (Insulin Human 75/25 [place]) 10 unit SC DINNER [facility] [place] Last Admin: 07/27/20 17:24 Dose: 10 u Documented by: Losartan Potassium (Losartan Potassium 25 Mg Tablet) 25 mg PO DAILY [facility] [place] Last Admin: 07/28/20 08:28 Dose: 25 mg Documented by: Magnesium Hydroxide (Magnesium Hydroxide 30 Ml Udc) 30 ml PO DAILY PRN PRN PRN Reason: Constipation Melatonin (Melatonin 3 Mg Tablet) 3 mg PO QHS PRN PRN PRN Reason: INSOMNIA Metoprolol Succinate (Metoprolol(Xl)Succ 25 Mg Tablet) 12.5 mg PO DAILY [facility] [place] Last Admin: 07/28/20 08:29 Dose: 12.5 mg Documented by: Montelukast Sodium (Montelukast 10 Mg Tablet) 10 mg PO DAILY [facility] [place] Last Admin: 07/28/20 08:28 Dose: 10 mg Documented by: Nitroglycerin (Nitroglycerin (Inpatient Use) 0.4 Mg Tab.Subl) 0.4 mg SUBLINGUAL Q5M PRN PRN Reason: CARDIAC/CHEST PAIN Ondansetron HCl (Ondansetron 4 Mg/2 Ml Vial) 4 mg IV Q8H PRN PRN PRN Reason: NAUSEA/VOMITING Last Admin: 07/27/20 20:54 Dose: 4 mg Documented by: Oxycodone HCl (Oxycodone 5 Mg Tablet) 5 mg PO Q4H PRN PRN PRN Reason: Pain Score 4-5 Pantoprazole Sodium (Pantoprazole Sodium 40 Mg Tablet) 40 mg PO DAILY [facility] [place] Last Admin: 07/28/20 08:28 Dose: 40 mg Documented by: Prochlorperazine Edisylate (Prochlorperazine 10 Mg/2 Ml Vial) 5 mg IV Q4H PRN PRN PRN Reason: Breakthrough Nausea/Vomiting Psyllium Hydrophilic Mucilloid (Psyllium 1 Packet) 1 packet PO DAILY PRN PRN PRN Reason: Constipation Senna/Docusate Sodium (Senna/Docusate Sodium 1 Tablet) 2 tablet PO BID PRN PRN PRN Reason: Constipation Sodium Chloride (0.9% Saline Lock 10 Ml Syringe) 10 - 40 ml IV UD PRN PRN Reason: SALINE FLUSH Last Admin: 07/24/20 22:19 Dose: 10 ml Documented by: Throat Lozenges (Benzocaine/Menthol 1 Lozenge) 1 lozenge MUCOUS MEM Q2H PRN PRN PRN Reason: SORE THROAT Last Admin: 07/26/20 22:01 Dose: 1 lozenge Documented by: Medical Necessity - Tobacco Use Smoking Status: Never smoker Tobacco Use: Non-smoker Assessment/Plan All Active Problems (Last Reviewed 05/16/20 @ 13:29 by Seema REID, PA) Elevation of cardiac enzymes (Acute) Near syncope (Acute) 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 (Acute) 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 Growing staph aureus Bone biopsy taken. Growing staph aureus Continue daily dressing changes with aquacel silver covered by DSD. Patient has noted muscle weakness. Try to not put weight through right hallux. Discussed this with PT and realize that due to patient's high fall risk this may not be feasible. Patient is aware of this and knows that putting weight through toe will slow wound healing. Surgical shoe ordered ESR 46, CRP 97.6, Hgb a1c 5.9 WBC 16.3 which has been increasing over hospital stay Cont antibiotics per ID New LEAS ordered showing Left biphasic with GABBI 1.16 on PT and DP is noncompressible TBI 0.4 as well as on right is monophasic with GABBI 1.49 and TBI 0.19. This is not adequate to allow for wound healing either of wound or of amputation site. Discussed this with the patient. Given the amount of necrotic tissue build up over hospital stay I don't think he is currently capable of healing the wound or an amputation at this time. Would recommend vascular intervention prior to any podiatry intervention. Patient noted to have LEAS done in February 2018 showing right GABBI of 0.39 and TBI of 0.35 and left GABBI 1.06 and TBI 0.53. DP and PT were biphasic bilaterally. Patient denies any intervention or following up with a vascular specialist MRI showed suspicion for OM as well as possible fracture to the distal phalanx of hallux. Follow vascular recommendations Patient is planned to undergo vascular intervention Thursday. Patient is aware that there may not be anything possible to be done to increase the blood flow. He is aware that if this is the case a more proximal amputation may be required in order for healing to occur. Depending on success of vascular intervention Thursday, may move forward with toe amputation to remove infection and necrotic tissue. Will await results of vascular intervention to determine chances of a hallux amputation healing or if a more proximal intervention may need to be discussed. Podiatry will continue to follow. Please contact if any concerns
[2020-07-28] MEDS: Insulin Human 75/25 Kwickpen 10 UNIT SC (16:46)
--- NOTE | 2020-07-28 18:57 | NURSING ---
Pt refused sliding scale insulin this shift
[2020-07-28 21:35] LABS: Bedside Glucose 164 mg/dL (70-110)
[2020-07-28 22:01] LABS: Bedside Glucose 136 mg/dL (70-110)
[2020-07-29] VITALS (10 sets, daily range): BP systolic 132–175; BP diastolic 62–76; PULSE 55–86; RESP 16–22; TEMP 36.3–37.4; O2SAT 94–98; BMI 27.3
[2020-07-29 03:36] LABS: Hematocrit 31.6 % (40-54); Hemoglobin 10.2 g/dL (13.0-16.5); Mean Corp Hgb Conc 32.3 g/dL (32-36); Mean Corpuscular Hgb 29.9 pg (27.0-32.0); Mean Corpuscular Volume 92.7 fL (80-94); Mean Platelet Vol. 11.4 fl (6.2-12.0); Platelet Count 321 K/mm3 (150-450); RBC Distribution Width CV 14.5 % (11.6-14.6); RBC Distribution Width SD 49.3 fl (35.1-43.9); Red Blood Count 3.41 M/mm3 (4.6-6.2); White Blood Count 12.7 K/mm3 (4.4-11.0)
[2020-07-29 04:33] LABS: Anion Gap 5 (5-15); BUN 29 mg/dL (7-18); Calcium,Total 8.3 mg/dL (8.5-10.1); Chloride 107 mmol/L (98-107); Creatinine, Serum 0.94 mg/dL (0.70-1.30); EST Glomerular Filtration Rate 83 mL/min (>60); Est Glom Filt Rate - Afr Amer 100 mL/min (>60); Estimated Creatinine Clearance 71.09 ml/min; Glucose 80 mg/dL (74-106); Potassium 3.9 mmol/L (3.5-5.1); Sodium Level 138 mmol/L (136-145)
[2020-07-29 04:37] LABS: Vancomycin, Trough Level 22.2 ug/mL (5.0-15.0)
[2020-07-29] MEDS: Enoxaparin 40 MG/0.4 ML Syringe SC (05:04)
--- NOTE | 2020-07-29 05:20 | PCM.RX.CS ---
Consult Pharmacy has been consulted to manage selected antiobiotic: Vancomycin Type of Consult: Follow-up Labs: Sodium 138 mmol/L (136-145) 07/29/20 03:25 Potassium 3.9 mmol/L (3.5-5.1) 07/29/20 03:25 Chloride 107 mmol/L (98-107) 07/29/20 03:25 Carbon Dioxide 26.0 mmol/L (21.0-32.0) 07/29/20 03:25 Anion Gap 5 (5-15) 07/29/20 03:25 BUN 29 mg/dL (7-18) H 07/29/20 03:25 Creatinine 0.94 mg/dL (0.70-1.30) 07/29/20 03:25 Est GFR (MDRD) Af Amer 100 mL/min (>60) 07/29/20 03:25 Est GFR (MDRD) Non-Af 83 mL/min (>60) 07/29/20 03:25 BUN/Creatinine Ratio 31.0 RATIO (10-20) H 07/29/20 03:25 Glucose 80 mg/dL (74-106) 07/29/20 03:25 Vancomycin Trough 22.2 ug/mL (5.0-15.0) H 07/29/20 03:25 Microbiology: Microbiology 07/24/20 16:50 Wound - Toe Gram Stain - Final 07/24/20 16:50 Wound - Toe Wound Culture - Final Staphylococcus aureus 07/24/20 16:50 Wound - Toe Anaerobic Culture - Final Anaerobic cocci 07/22/20 12:25 Blood Culture (Wb) - Left Hand Blood Culture - Final No growth in 5 days. 07/22/20 12:23 Blood Culture (Wb) - Left Forearm Blood Culture - Final No growth in 5 days. 07/25/20 08:30 Other - Toe Miscellaneous Culture - Final Staphylococcus aureus 07/25/20 08:30 Other - Toe Gram Stain - Final 07/25/20 18:25 Mucosa - Nose SARS-CoV-2 Antigen (Rapid) - Final 07/22/20 19:25 Mucosa - Nasopharyngeal Respiratory Panel (PCR) - Final 07/22/20 12:39 Mucosa - Nose SARS-CoV-2 Antigen (Rapid) - Final Goal Trough: 15-20 mcg/mL Pharmacy Plan for Drug Dosing: Pharmacy Service will continue to monitor and adjust dosing as required. TROUGH 22.2 HOLD DOSE AND DRAW RANDOM LEVEL 07/29 @ 1530 Follow-Up Labs: Trough Vancomycin Labs to be done on [date and time ordered]: 07/29 @ 1530
[2020-07-29] MEDS: BENZOCAINE/MENTHOL 1 LOZENGE MUCOUS MEM (06:33)
[2020-07-29 08:21] LABS: Bedside Glucose 95 mg/dL (70-110)
--- NOTE | 2020-07-29 09:16 | PCM.PROGNOTE ---
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 No acute events overnight. Amenable to vascular intervention tomorrow. Denies current symptoms or complaints. - Physical Exam Vitals/I&O's: Vital Signs Temp Pulse Resp BP Pulse Ox 97.4 F L 69 16 132/63 H 97 07/29/20 02:00 07/29/20 07:00 07/29/20 02:00 07/29/20 02:00 07/29/20 02:00 Oxygen Flow Rate (L/min) 2 Oxygen Delivery Method Room Air Weight: 202 lb Body Mass Index (BMI) 24.6 Intake and Output for Last 24 Hours 07/27/20 07/28/20 07/29/20 23:59 23:59 23:59 Intake Total 2472.67 / 2672.67 1456 / 1456 112 / 112 Output Total 1500 / 1700 1250 / 1250 250 / 250 Balance 972.67 / 972.67 206 / 206 -138 / -138 General: Alert, Oriented x3, Cooperative HEENT: Atraumatic, PERRLA, EOMI, Normocephalic Neck: Supple, No JVD, Negative Carotid Bruits Lungs: Clear to auscultation, Normal air movement Cardiovascular: Regular rate, No murmurs Abdomen: Bowel Sounds Present, Soft, Non Tender Extremities: No clubbing, No cyanosis, No edema, Capillary Refill Less than 3 Seconds Skin: No rashes, No breakdown, - - Right foot dressing dry and intact Musculoskeletal: No Tenderness to Palpation of Joints or Extremities Neurological: Cranial nerves II-XII grossly intact, Neuro grossly intact Psych/Mental Status: Normal Affect, Appropriate Microbiology Past 72 Hours 07/24/20 16:50 Wound - Toe Gram Stain - Final 07/24/20 16:50 Wound - Toe Wound Culture - Final Staphylococcus aureus 07/24/20 16:50 Wound - Toe Anaerobic Culture - Final Anaerobic cocci 07/22/20 12:25 Blood Culture (Wb) - Left Hand Blood Culture - Final No growth in 5 days. 07/22/20 12:23 Blood Culture (Wb) - Left Forearm Blood Culture - Final No growth in 5 days. 07/25/20 08:30 Other - Toe Miscellaneous Culture - Final Staphylococcus aureus 07/25/20 08:30 Other - Toe Gram Stain - Final Laboratory Results 07/28/20 12:14: POC Glucose 164 H 07/28/20 16:40: POC Glucose 164 H 07/28/20 21:32: POC Glucose 136 H 07/29/20 03:25: Vancomycin Trough 22.2 H 07/29/20 03:25: WBC 12.7 H, RBC 3.41 L, Hgb 10.2 L, Hct 31.6 L, MCV 92.7, MCH 29.9, MCHC 32.3, RDW Std Deviation 49.3 H, RDW Coeff of Sacha 14.5, Plt Count 321, MPV 11.4 07/29/20 03:25: Sodium 138, Potassium 3.9, Chloride 107, Carbon Dioxide 26.0, Anion Gap 5, BUN 29 H, Creatinine 0.94, Estim Creat Clear Calc 71.09, Est GFR (MDRD) Af Amer 100, Est GFR (MDRD) Non-Af 83, BUN/Creatinine Ratio 31.0 H, Glucose 80, Calcium 8.3 L 07/29/20 08:15: POC Glucose 95 Current Medications Acetaminophen (Acetaminophen 325 Mg Tablet) 650 mg PO Q6H PRN PRN PRN Reason: Pain Score 1-10/Temp > 100.7 F Last Admin: 07/28/20 20:02 Dose: 650 mg Documented by: Al Hydroxide/Mg Hydroxide (Mag Hydrox/Al Hydrox/Simeth 30 Ml Udc) 30 ml PO Q6H PRN PRN PRN Reason: Gastric Burning Albuterol Sulfate (Albuterol 2.5 Mg/3 Ml Vial.Neb.) 2.5 mg INHALATION Q2H PRN PRN PRN Reason: Dyspnea, wheezing Last Admin: 07/28/20 05:32 Dose: 2.5 mg Documented by: Aspirin (Aspirin 81 Mg Tab.Chew) 81 mg PO DAILY@0800 JOSIE Last Admin: 07/28/20 08:26 Dose: 81 mg Documented by: Clotrimazole (Clotrimazole 1 Tube) 1 applicatio TOPICAL BID [facility]; Protocol Last Admin: 07/28/20 21:33 Dose: 1 applicatio Documented by: Enoxaparin Sodium (Enoxaparin 40 Mg/0.4 Ml Syringe) 40 mg SC DAILY@0600 [facility] Last Admin: 07/29/20 05:04 Dose: 40 mg Documented by: Guaifenesin (Guaifenesin 10 Ml Udc (200mg/10ml)) 20 ml PO Q4H PRN PRN PRN Reason: COUGH Last Admin: 07/28/20 20:01 Dose: 20 ml Documented by: Hydralazine HCl (Hydralazine 20 Mg/Ml Vial) 10 mg IV Q4H PRN PRN PRN Reason: SBP > 160 Ampicillin Sodium/Sulbactam (Sodium 3 gm/ Sodium Chloride) 112 mls @ 150 mls/hr IV Q8 [facility] Last Infusion: 07/29/20 05:49 Dose: Infused Documented by: Vancomycin IV Pharmacy to Dose (1 ea/ Sodium Chloride) 500 mls @ 250 mls/hr IV X1 PRN; Protocol PRN Reason: Rx to Dose Insulin Human Lispro (Insulin Lispro 100 Unit/Ml Insuln.Pen) 0 unit SC ACHS [facility]; Protocol Last Admin: 07/29/20 08:23 Dose: Not Given Documented by: Insulin Lispro Protam/Lispro Human (Insulin Human 75/25 [place]) 20 unit SC BREAKFAST [facility] Last Admin: 07/28/20 08:26 Dose: 20 u Documented by: Insulin Lispro Protam/Lispro Human (Insulin Human 75/25 [place]) 10 unit SC DINNER [facility] Last Admin: 07/28/20 16:46 Dose: 10 u Documented by: Losartan Potassium (Losartan Potassium 25 Mg Tablet) 25 mg PO DAILY [facility] Last Admin: 07/28/20 08:28 Dose: 25 mg Documented by: Magnesium Hydroxide (Magnesium Hydroxide 30 Ml Udc) 30 ml PO DAILY PRN PRN PRN Reason: Constipation Melatonin (Melatonin 3 Mg Tablet) 3 mg PO QHS PRN PRN PRN Reason: INSOMNIA Metoprolol Succinate (Metoprolol(Xl)Succ 25 Mg Tablet) 12.5 mg PO DAILY [facility] Last Admin: 07/28/20 08:29 Dose: 12.5 mg Documented by: Montelukast Sodium (Montelukast 10 Mg Tablet) 10 mg PO DAILY [facility] Last Admin: 07/28/20 08:28 Dose: 10 mg Documented by: Nitroglycerin (Nitroglycerin (Inpatient Use) 0.4 Mg Tab.Subl) 0.4 mg SUBLINGUAL Q5M PRN PRN Reason: CARDIAC/CHEST PAIN Ondansetron HCl (Ondansetron 4 Mg/2 Ml Vial) 4 mg IV Q8H PRN PRN PRN Reason: NAUSEA/VOMITING Last Admin: 07/27/20 20:54 Dose: 4 mg Documented by: Oxycodone HCl (Oxycodone 5 Mg Tablet) 5 mg PO Q4H PRN PRN PRN Reason: Pain Score 4-5 Pantoprazole Sodium (Pantoprazole Sodium 40 Mg Tablet) 40 mg PO DAILY [facility] Last Admin: 07/28/20 08:28 Dose: 40 mg Documented by: Prochlorperazine Edisylate (Prochlorperazine 10 Mg/2 Ml Vial) 5 mg IV Q4H PRN PRN PRN Reason: Breakthrough Nausea/Vomiting Psyllium Hydrophilic Mucilloid (Psyllium 1 Packet) 1 packet PO DAILY PRN PRN PRN Reason: Constipation Senna/Docusate Sodium (Senna/Docusate Sodium 1 Tablet) 2 tablet PO BID PRN PRN PRN Reason: Constipation Sodium Chloride (0.9% Saline Lock 10 Ml Syringe) 10 - 40 ml IV UD PRN PRN Reason: SALINE FLUSH Last Admin: 07/24/20 22:19 Dose: 10 ml Documented by: Throat Lozenges (Benzocaine/Menthol 1 Lozenge) 1 lozenge MUCOUS MEM Q2H PRN PRN PRN Reason: SORE THROAT Last Admin: 07/29/20 06:33 Dose: 1 lozenge Documented by: Medical Necessity - Tobacco Use Smoking Status: Never smoker Tobacco Use: Non-smoker Assessment/Plan All Active Problems (Last Reviewed 05/16/20 @ 13:29 by Seema Yanes PA, PA) Elevation of cardiac enzymes (Acute) Near syncope (Acute) 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 Right great toe cellulitis with osteomyelitis-ID and podiatry following. Cultures growing MSSA. Continue vancomycin and Unasyn. Bone biopsy 07/25/2020 without evidence of acute osteomyelitis. Continue dressing changes as ordered. Pending vascular intervention on Thursday, further debridement of infected tissue versus toe amputation following. Nonweightbearing right hallux. 2. PAD-arterial studies show moderately severe right lower extremity arterial occlusive disease. Vascular surgery consulted. Plan for vascular intervention 07/30/2020. 3. Debility, failure to thrive-history of falls. PT/OT. SNF recommended. 4. Type 2 diabetes [id number] with sliding scale insulin. Hemoglobin A1c 5.9%. 5. CAD with history of CABG/ischemic cardiomyopathy-on aspirin. Allergy to statin. 6. Carotid artery disease-history of right carotid endarterectomy. On aspirin. Allergy to statin as noted above. 7. Hypertension-stable, continue losartan regimen. 8. Hyperlipidemia- allergy to statin. 9. GERD-continue PPI. 10. Abnormal troponin-patient underwent stress test 07/23/2020 which showed no evidence of ischemia. EF 25%. Outpatient follow-up with cardiology. 11. 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 Worsening weakness and falls. Recommend outpatient neuro follow-up. DVT prophylaxis-Lovenox subcu Discharge planning: Patient recommended SNF, unclear at this time if patient is amenable. This patient was seen by AUGUSTA Short under the supervision of Dr. Alejandre. <Antwan Alejandre - Last Filed: 07/29/20 11:08> - Physical Exam Vitals/I&O's: Vital Signs Temp Pulse Resp BP Pulse Ox 97.4 F L 69 18 136/62 H 98 07/29/20 09:35 07/29/20 09:55 07/29/20 09:35 07/29/20 09:35 07/29/20 09:35 Oxygen Flow Rate (L/min) 2 Oxygen Delivery Method Room Air Weight: 91.626 kg Body Mass Index (BMI) 24.6 Intake and Output for Last 24 Hours 07/27/20 07/28/20 07/29/20 23:59 23:59 23:59 Intake Total 2472.67 / 2672.67 1456 / 1456 112 / 112 Output Total 1500 / 1700 1250 / 1250 250 / 250 Balance 972.67 / 972.67 206 / 206 -138 / -138 Microbiology Past 72 Hours 07/24/20 16:50 Wound - Toe Gram Stain - Final 07/24/20 16:50 Wound - Toe Wound Culture - Final Staphylococcus aureus 07/24/20 16:50 Wound - Toe Anaerobic Culture - Final Anaerobic cocci 07/22/20 12:25 Blood Culture (Wb) - Left Hand Blood Culture - Final No growth in 5 days. 07/22/20 12:23 Blood Culture (Wb) - Left Forearm Blood Culture - Final No growth in 5 days. 07/25/20 08:30 Other - Toe Miscellaneous Culture - Final Staphylococcus aureus 07/25/20 08:30 Other - Toe Gram Stain - Final Laboratory Results 07/28/20 12:14: POC Glucose 164 H 07/28/20 16:40: POC Glucose 164 H 07/28/20 21:32: POC Glucose 136 H 07/29/20 03:25: Vancomycin Trough 22.2 H 07/29/20 03:25: WBC 12.7 H, RBC 3.41 L, Hgb 10.2 L, Hct 31.6 L, MCV 92.7, MCH 29.9, MCHC 32.3, RDW Std Deviation 49.3 H, RDW Coeff of Sacha 14.5, Plt Count 321, MPV 11.4 07/29/20 03:25: Sodium 138, Potassium 3.9, Chloride 107, Carbon Dioxide 26.0, Anion Gap 5, BUN 29 H, Creatinine 0.94, Estim Creat Clear Calc 71.09, Est GFR (MDRD) Af Amer 100, Est GFR (MDRD) Non-Af 83, BUN/Creatinine Ratio 31.0 H, Glucose 80, Calcium 8.3 L 07/29/20 08:15: POC Glucose 95 Current Medications Acetaminophen (Acetaminophen 325 Mg Tablet) 650 mg PO Q6H PRN PRN PRN Reason: Pain Score 1-10/Temp > 100.7 F Last Admin: 07/28/20 20:02 Dose: 650 mg Documented by: Al Hydroxide/Mg Hydroxide (Mag Hydrox/Al Hydrox/Simeth 30 Ml Udc) 30 ml PO Q6H PRN PRN PRN Reason: Gastric Burning Albuterol Sulfate (Albuterol 2.5 Mg/3 Ml Vial.Neb.) 2.5 mg INHALATION Q2H PRN PRN PRN Reason: Dyspnea, wheezing Last Admin: 07/28/20 05:32 Dose: 2.5 mg Documented by: Aspirin (Aspirin 81 Mg Tab.Chew) 81 mg PO DAILY@0800 [facility] Last Admin: 07/28/20 08:26 Dose: 81 mg Documented by: Clotrimazole (Clotrimazole 1 Tube) 1 applicatio TOPICAL BID [facility]; Protocol Last Admin: 07/29/20 09:49 Dose: 1 applicatio Documented by: Enoxaparin Sodium (Enoxaparin 40 Mg/0.4 Ml Syringe) 40 mg SC DAILY@0600 [facility] Last Admin: 07/29/20 05:04 Dose: 40 mg Documented by: Guaifenesin (Guaifenesin 10 Ml Udc (200mg/10ml)) 20 ml PO Q4H PRN PRN PRN Reason: COUGH Last Admin: 07/28/20 20:01 Dose: 20 ml Documented by: Hydralazine HCl (Hydralazine 20 Mg/Ml Vial) 10 mg IV Q4H PRN PRN PRN Reason: SBP > 160 Ampicillin Sodium/Sulbactam (Sodium 3 gm/ Sodium Chloride) 112 mls @ 150 mls/hr IV Q8 [facility] Last Infusion: 07/29/20 05:49 Dose: Infused Documented by: Vancomycin IV Pharmacy to Dose (1 ea/ Sodium Chloride) 500 mls @ 250 mls/hr IV X1 PRN; Protocol PRN Reason: Rx to Dose Insulin Human Lispro (Insulin Lispro 100 Unit/Ml Insuln.Pen) 0 unit SC ACHS [facility]; Protocol Last Admin: 07/29/20 08:23 Dose: Not Given Documented by: Insulin Lispro Protam/Lispro Human (Insulin Human 75/25 [place]) 20 unit SC BREAKFAST [facility] Last Admin: 07/29/20 09:53 Dose: 20 u Documented by: Insulin Lispro Protam/Lispro Human (Insulin Human 75/25 [place]) 10 unit SC DINNER [facility] Last Admin: 07/28/20 16:46 Dose: 10 u Documented by: Losartan Potassium (Losartan Potassium 25 Mg Tablet) 25 mg PO DAILY [facility] Last Admin: 07/29/20 09:48 Dose: 25 mg Documented by: Magnesium Hydroxide (Magnesium Hydroxide 30 Ml Udc) 30 ml PO DAILY PRN PRN PRN Reason: Constipation Melatonin (Melatonin 3 Mg Tablet) 3 mg PO QHS PRN PRN PRN Reason: INSOMNIA Metoprolol Succinate (Metoprolol(Xl)Succ 25 Mg Tablet) 12.5 mg PO DAILY [facility] Last Admin: 07/29/20 09:55 Dose: 12.5 mg Documented by: Montelukast Sodium (Montelukast 10 Mg Tablet) 10 mg PO DAILY [facility] Last Admin: 07/29/20 09:48 Dose: 10 mg Documented by: Nitroglycerin (Nitroglycerin (Inpatient Use) 0.4 Mg Tab.Subl) 0.4 mg SUBLINGUAL Q5M PRN PRN Reason: CARDIAC/CHEST PAIN Ondansetron HCl (Ondansetron 4 Mg/2 Ml Vial) 4 mg IV Q8H PRN PRN PRN Reason: NAUSEA/VOMITING Last Admin: 07/27/20 20:54 Dose: 4 mg Documented by: Oxycodone HCl (Oxycodone 5 Mg Tablet) 5 mg PO Q4H PRN PRN PRN Reason: Pain Score 4-5 Pantoprazole Sodium (Pantoprazole Sodium 40 Mg Tablet) 40 mg PO DAILY [facility] Last Admin: 07/29/20 09:49 Dose: 40 mg Documented by: Prochlorperazine Edisylate (Prochlorperazine 10 Mg/2 Ml Vial) 5 mg IV Q4H PRN PRN PRN Reason: Breakthrough Nausea/Vomiting Psyllium Hydrophilic Mucilloid (Psyllium 1 Packet) 1 packet PO DAILY PRN PRN PRN Reason: Constipation Senna/Docusate Sodium (Senna/Docusate Sodium 1 Tablet) 2 tablet PO BID PRN PRN PRN Reason: Constipation Sodium Chloride (0.9% Saline Lock 10 Ml Syringe) 10 - 40 ml IV UD PRN PRN Reason: SALINE FLUSH Last Admin: 07/24/20 22:19 Dose: 10 ml Documented by: Throat Lozenges (Benzocaine/Menthol 1 Lozenge) 1 lozenge MUCOUS MEM Q2H PRN PRN PRN Reason: SORE THROAT Last Admin: 07/29/20 06:33 Dose: 1 lozenge Documented by: Assessment/Plan This patient was seen in conjunction with AUGUSTA Short . I have independently interviewed and examined the patient and reviewed pertinent historical, laboratory, and other data. Please refer to AUGUSTA Short note for details of this patient's presentation, findings, and recommendations. I have reviewed AUGUSTA Short note and concur with documented findings. In brief, Patient is a 79-year-old gentleman with multiple comorbidities admitted with generalized weakness and falls 07/29/2020; patient seen and scheduled to undergo vascular intervention by Dr. Suarez on 07/30/2020 Physical Examination: GENERAL: cooperative HEENT: Atraumatic; EYES; Anicteric, Normal Conjunctiva NECK; supple, normal thyroid, RESPIRATORY: Diminished to auscultation CARDIOVASCULAR: Regular S1 S2, GI: soft, normoactive bowel sounds, : No Renal angle tenderness; EXTREMITIES: Right big toe in surgical dressing MUSCULOSKELETAL: no muscle waisting NEURO: Awake; no lateralizing signs. SKIN: No Rash PSYCH; Flat affect Assessment: 1. Right great toe cellulitis with osteomyelitis with MSSA 2. Physical deconditioning 3. Elevated troponin -secondary to demand ischemia 4. Coronary artery disease ?With previous CABG 5. Diabetes mellitus type II 6. Peripheral arterial disease-with moderately severe right lower extremity arterial occlusive disease 7. Carotid artery disease s/p right CEA 8. Hypertension 9. Dyslipidemia 10. GERD on PPI 11. DVT prophylaxis 12. Hypomagnesemia Recommendations: 1. I have discussed the results of my overview and impressions with the patient 2. Options for management were reviewed Inpatient E&M: 13797 Subs Hosp L2
[2020-07-29] MEDS: Losartan Potassium 25 MG Tablet PO (09:48)
[2020-07-29] MEDS: Montelukast 10 MG Tablet PO (09:48)
[2020-07-29] MEDS: Pantoprazole Sodium 40 MG Tablet PO (09:49)
[2020-07-29] MEDS: Insulin Human 75/25 Kwickpen 20 UNIT SC (09:53)
[2020-07-29] MEDS: Metoprolol(XL)Succ 25 MG Tablet 12.5 MG PO (09:55)
[2020-07-29 11:45] LABS: Bedside Glucose 143 mg/dL (70-110)
--- NOTE | 2020-07-29 14:21 | PCM.PROGNOTE ---
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 Patient denies any new pedal complaints. Patient denies nausea, fever, vomiting, chills, chest pain, shortness of breath, streaking, purulence - Physical Exam Vitals/I&O's: Vital Signs Temp Pulse Resp BP Pulse Ox 97.4 F L 69 18 136/62 H 98 07/29/20 09:35 07/29/20 09:55 07/29/20 09:35 07/29/20 09:35 07/29/20 09:35 Oxygen Flow Rate (L/min) 2 Oxygen Delivery Method Room Air Weight: 91.626 kg Body Mass Index (BMI) 24.6 Intake and Output for Last 24 Hours 07/27/20 07/28/20 07/29/20 23:59 23:59 23:59 Intake Total 2472.67 / 2672.67 1456 / 1456 112 / 112 Output Total 1500 / 1700 1250 / 1250 250 / 250 Balance 972.67 / 972.67 206 / 206 -138 / -138 General: Alert, Oriented x3 HEENT: Atraumatic Extremities: No clubbing, No cyanosis, Capillary Refill Less than 3 Seconds, No Calf Tenderness, Cool - right hallux ulceration area, Diminished Peripheral Pulses, Edema Skin: Ulcer/ Wound - Right hallux ulcer, no malodor, probes to bone, mild serosanginous drainage, periwound erythema and edema no change, foot is warm and wound is cool with necrotic base, no pus, - - triangular ulceration noted to dorsal midfoot with surrounding erythema/edema, no drainage, doesn't probe, stable Musculoskeletal: Muscle Wasting, Tenderness - right toes to palpation and ROM Neurological: - - decreased epicritic sensation Psych/Mental Status: Normal Affect, Appropriate Microbiology Past 72 Hours 07/24/20 16:50 Wound - Toe Gram Stain - Final 07/24/20 16:50 Wound - Toe Wound Culture - Final Staphylococcus aureus 07/24/20 16:50 Wound - Toe Anaerobic Culture - Final Anaerobic cocci 07/22/20 12:25 Blood Culture (Wb) - Left Hand Blood Culture - Final No growth in 5 days. 07/22/20 12:23 Blood Culture (Wb) - Left Forearm Blood Culture - Final No growth in 5 days. 07/25/20 08:30 Other - Toe Miscellaneous Culture - Final Staphylococcus aureus 07/25/20 08:30 Other - Toe Gram Stain - Final Laboratory Results 07/28/20 16:40: POC Glucose 164 H 07/28/20 21:32: POC Glucose 136 H 07/29/20 03:25: Vancomycin Trough 22.2 H 07/29/20 03:25: WBC 12.7 H, RBC 3.41 L, Hgb 10.2 L, Hct 31.6 L, MCV 92.7, MCH 29.9, MCHC 32.3, RDW Std Deviation 49.3 H, RDW Coeff of Sacha 14.5, Plt Count 321, MPV 11.4 07/29/20 03:25: Sodium 138, Potassium 3.9, Chloride 107, Carbon Dioxide 26.0, Anion Gap 5, BUN 29 H, Creatinine 0.94, Estim Creat Clear Calc 71.09, Est GFR (MDRD) Af Amer 100, Est GFR (MDRD) Non-Af 83, BUN/Creatinine Ratio 31.0 H, Glucose 80, Calcium 8.3 L 07/29/20 08:15: POC Glucose 95 07/29/20 11:41: POC Glucose 143 H Current Medications Acetaminophen (Acetaminophen 325 Mg Tablet) 650 mg PO Q6H PRN PRN PRN Reason: Pain Score 1-10/Temp > 100.7 F Last Admin: 07/28/20 20:02 Dose: 650 mg Documented by: Al Hydroxide/Mg Hydroxide (Mag Hydrox/Al Hydrox/Simeth 30 Ml Udc) 30 ml PO Q6H PRN PRN PRN Reason: Gastric Burning Albuterol Sulfate (Albuterol 2.5 Mg/3 Ml Vial.Neb.) 2.5 mg INHALATION Q2H PRN PRN PRN Reason: Dyspnea, wheezing Last Admin: 07/28/20 05:32 Dose: 2.5 mg Documented by: Aspirin (Aspirin 81 Mg Tab.Chew) 81 mg PO DAILY@0800 JOSIE Last Admin: 07/28/20 08:26 Dose: 81 mg Documented by: Clotrimazole (Clotrimazole 1 Tube) 1 applicatio TOPICAL BID [facility]; Protocol Last Admin: 07/29/20 09:49 Dose: 1 applicatio Documented by: Enoxaparin Sodium (Enoxaparin 40 Mg/0.4 Ml Syringe) 40 mg SC DAILY@0600 [facility] Last Admin: 07/29/20 05:04 Dose: 40 mg Documented by: Guaifenesin (Guaifenesin 10 Ml Udc (200mg/10ml)) 20 ml PO Q4H PRN PRN PRN Reason: COUGH Last Admin: 07/28/20 20:01 Dose: 20 ml Documented by: Hydralazine HCl (Hydralazine 20 Mg/Ml Vial) 10 mg IV Q4H PRN PRN PRN Reason: SBP > 160 Ampicillin Sodium/Sulbactam (Sodium 3 gm/ Sodium Chloride) 112 mls @ 150 mls/hr IV Q8 [facility] Last Admin: 07/29/20 14:04 Dose: 150 mls/hr Documented by: Vancomycin IV Pharmacy to Dose (1 ea/ Sodium Chloride) 500 mls @ 250 mls/hr IV X1 PRN; Protocol PRN Reason: Rx to Dose Insulin Human Lispro (Insulin Lispro 100 Unit/Ml Insuln.Pen) 0 unit SC ACHS [facility]; Protocol Last Admin: 07/29/20 11:42 Dose: Not Given Documented by: Insulin Lispro Protam/Lispro Human (Insulin Human 75/25 [place]) 20 unit SC BREAKFAST [facility] Last Admin: 07/29/20 09:53 Dose: 20 u Documented by: Insulin Lispro Protam/Lispro Human (Insulin Human 75/25 [place]) 10 unit SC DINNER [facility] Last Admin: 07/28/20 16:46 Dose: 10 u Documented by: Losartan Potassium (Losartan Potassium 25 Mg Tablet) 25 mg PO DAILY [facility] Last Admin: 07/29/20 09:48 Dose: 25 mg Documented by: Magnesium Hydroxide (Magnesium Hydroxide 30 Ml Udc) 30 ml PO DAILY PRN PRN PRN Reason: Constipation Melatonin (Melatonin 3 Mg Tablet) 3 mg PO QHS PRN PRN PRN Reason: INSOMNIA Metoprolol Succinate (Metoprolol(Xl)Succ 25 Mg Tablet) 12.5 mg PO DAILY [facility] Last Admin: 07/29/20 09:55 Dose: 12.5 mg Documented by: Montelukast Sodium (Montelukast 10 Mg Tablet) 10 mg PO DAILY [facility] Last Admin: 07/29/20 09:48 Dose: 10 mg Documented by: Nitroglycerin (Nitroglycerin (Inpatient Use) 0.4 Mg Tab.Subl) 0.4 mg SUBLINGUAL Q5M PRN PRN Reason: CARDIAC/CHEST PAIN Ondansetron HCl (Ondansetron 4 Mg/2 Ml Vial) 4 mg IV Q8H PRN PRN PRN Reason: NAUSEA/VOMITING Last Admin: 07/27/20 20:54 Dose: 4 mg Documented by: Oxycodone HCl (Oxycodone 5 Mg Tablet) 5 mg PO Q4H PRN PRN PRN Reason: Pain Score 4-5 Pantoprazole Sodium (Pantoprazole Sodium 40 Mg Tablet) 40 mg PO DAILY [facility] Last Admin: 07/29/20 09:49 Dose: 40 mg Documented by: Prochlorperazine Edisylate (Prochlorperazine 10 Mg/2 Ml Vial) 5 mg IV Q4H PRN PRN PRN Reason: Breakthrough Nausea/Vomiting Psyllium Hydrophilic Mucilloid (Psyllium 1 Packet) 1 packet PO DAILY PRN PRN PRN Reason: Constipation Senna/Docusate Sodium (Senna/Docusate Sodium 1 Tablet) 2 tablet PO BID PRN PRN PRN Reason: Constipation Sodium Chloride (0.9% Saline Lock 10 Ml Syringe) 10 - 40 ml IV UD PRN PRN Reason: SALINE FLUSH Last Admin: 07/24/20 22:19 Dose: 10 ml Documented by: Throat Lozenges (Benzocaine/Menthol 1 Lozenge) 1 lozenge MUCOUS MEM Q2H PRN PRN PRN Reason: SORE THROAT Last Admin: 07/29/20 06:33 Dose: 1 lozenge Documented by: Medical Necessity - Tobacco Use Smoking Status: Never smoker Tobacco Use: Non-smoker Assessment/Plan All Active Problems (Last Reviewed 05/16/20 @ 13:29 by Seema Yanes PA, PA) Elevation of cardiac enzymes (Acute) Near syncope (Acute) 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 (Acute) 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 Growing staph aureus, MSSA Bone biopsy taken. Growing staph aureus, MSSA Continue daily dressing changes with aquacel silver covered by DSD. Patient has noted muscle weakness. Try to not put weight through right hallux. Discussed this with PT and I realize that due to patient's high fall risk this may not be feasible. Patient is aware of this and knows that putting weight through toe will slow wound healing. Surgical shoe ordered ESR 46, CRP 97.6, Hgb a1c 5.9 WBC 12.7 Cont antibiotics per ID New LEAS ordered showing Left biphasic with GABBI 1.16 on PT and DP is noncompressible TBI 0.4 as well as on right is monophasic with GABBI 1.49 and TBI 0.19. This is not adequate to allow for wound healing either of wound or of amputation site. Discussed this with the patient. Given the amount of necrotic tissue build up over hospital stay I don't think he is currently capable of healing the wound or an amputation at this time. Would recommend vascular intervention prior to any podiatry intervention. Patient noted to have LEAS done in February 2018 showing right GABBI of 0.39 and TBI of 0.35 and left GABBI 1.06 and TBI 0.53. DP and PT were biphasic bilaterally. Patient denies any intervention or following up with a vascular specialist MRI showed suspicion for OM as well as possible fracture to the distal phalanx of hallux. Follow vascular recommendations Patient is planned to undergo vascular intervention Thursday. Patient is aware that there may not be anything possible to be done to increase the blood flow. He is aware that if this is the case a more proximal amputation may be required in order for healing to occur. Depending on success of vascular intervention Thursday, may move forward with toe amputation to remove infection and necrotic tissue. Will await results of vascular intervention to determine chances of a hallux amputation healing or if a more proximal intervention may need to be discussed. Podiatry will continue to follow. Please contact if any concerns
[2020-07-29 16:14] LABS: Vancomycin, Random Level 14.4 ug/mL (0.0-15.0)
--- NOTE | 2020-07-29 16:31 | PCM.RX.CS ---
Consult Pharmacy has been consulted to manage selected antiobiotic: Vancomycin Type of Consult: Follow-up Suspected Infection: Skin/Soft tissue, Osteomyelitis Prior Doses of Antibiotics Received/Current Regimen: The patient was most recently on 1250mg IV q12h but the dose this morning was held after the high trough value of 22.2. Labs: Sodium 138 mmol/L (136-145) 07/29/20 03:25 Potassium 3.9 mmol/L (3.5-5.1) 07/29/20 03:25 Chloride 107 mmol/L (98-107) 07/29/20 03:25 Carbon Dioxide 26.0 mmol/L (21.0-32.0) 07/29/20 03:25 Anion Gap 5 (5-15) 07/29/20 03:25 BUN 29 mg/dL (7-18) H 07/29/20 03:25 Creatinine 0.94 mg/dL (0.70-1.30) 07/29/20 03:25 Est GFR (MDRD) Af Amer 100 mL/min (>60) 07/29/20 03:25 Est GFR (MDRD) Non-Af 83 mL/min (>60) 07/29/20 03:25 BUN/Creatinine Ratio 31.0 RATIO (10-20) H 07/29/20 03:25 Glucose 80 mg/dL (74-106) 07/29/20 03:25 Vancomycin Trough 22.2 ug/mL (5.0-15.0) H 07/29/20 03:25 Random Vancomycin 14.4 ug/mL (0.0-15.0) 07/29/20 15:27 Microbiology: Microbiology 07/24/20 16:50 Wound - Toe Gram Stain - Final 07/24/20 16:50 Wound - Toe Wound Culture - Final Staphylococcus aureus 07/24/20 16:50 Wound - Toe Anaerobic Culture - Final Anaerobic cocci 07/22/20 12:25 Blood Culture (Wb) - Left Hand Blood Culture - Final No growth in 5 days. 07/22/20 12:23 Blood Culture (Wb) - Left Forearm Blood Culture - Final No growth in 5 days. 07/25/20 08:30 Other - Toe Miscellaneous Culture - Final Staphylococcus aureus 07/25/20 08:30 Other - Toe Gram Stain - Final 07/25/20 18:25 Mucosa - Nose SARS-CoV-2 Antigen (Rapid) - Final 07/22/20 19:25 Mucosa - Nasopharyngeal Respiratory Panel (PCR) - Final 07/22/20 12:39 Mucosa - Nose SARS-CoV-2 Antigen (Rapid) - Final Weight used for dosin.6 kg Estimated Creatinine Clearance: 71ml/min Goal Trough: 15-20 mcg/mL Pharmacy Plan for Drug Dosing: The random vanc level drawn this afternoon at 15:27 came back as 14.4. This is back below 20 so we can restart dosing. Will drop dosing back down to 1000mg IV q12h (previous dose before the 1250mg q12h). Repeat trough again before the 4th dose, aiming to keep it in the range of 15-20. Pharmacy Service will continue to monitor and adjust dosing as required. Follow-Up Labs: Trough Vancomycin Labs to be done on [date and time ordered]: 07/31/20 04:30
[2020-07-29] MEDS: Insulin Human 75/25 Kwickpen 10 UNIT SC (17:04)
[2020-07-29] MEDS: Vancomycin IV 1,000 MG/200 ML BAG 200 MG IV (17:25)
[2020-07-29 18:51] LABS: Bedside Glucose 75 mg/dL (70-110)
[2020-07-29] MEDS: 0.9% Saline Lock 10 ML Syringe IV (21:38)
[2020-07-29 22:06] LABS: Bedside Glucose 116 mg/dL (70-110)
[2020-07-30] VITALS (9 sets, daily range): BP systolic 143–171; BP diastolic 74–87; PULSE 57–89; RESP 18–22; TEMP 36.6–36.9; O2SAT 93–97
[2020-07-30] MEDS: 0.9% Saline Lock 10 ML Syringe IV ×2 (04:13→21:32)
[2020-07-30] MEDS: Vancomycin IV 1,000 MG/200 ML BAG 200 MG IV (04:13)
--- NOTE | 2020-07-30 05:00 | EKG12_ITS ---
Test Reason : AM EKG Blood Pressure : / mmHG Vent. Rate : 066 BPM Atrial Rate : 066 BPM P-R Int : 248 ms QRS Dur : 138 ms QT Int : 442 ms P-R-T Axes : 074 -55 119 degrees QTc Int : 463 ms Sinus rhythm with 1st degree A-V block Left axis deviation Right bundle branch block Left ventricular hypertrophy with repolarization abnormality Inferior infarct , age undetermined Abnormal ECG When compared with ECG of 23-JUL-2020 05:13, MANUAL COMPARISON REQUIRED, DATA IS UNCONFIRMED Confirmed by MER URENA, BRITTANY ([id number]), fashion editor JUANITA JANE ([id number]) on 07/31/2020 8:58:32 AM Referred By: KERRI Confirmed By:BRITTANY DEL ANGEL MD
[2020-07-30 05:33] LABS: Hematocrit 31.6 % (40-54); Hemoglobin 10.3 g/dL (13.0-16.5); Mean Corp Hgb Conc 32.6 g/dL (32-36); Mean Corpuscular Volume 92.1 fL (80-94); Mean Platelet Vol. 11.3 fl (6.2-12.0); Platelet Count 364 K/mm3 (150-450); RBC Distribution Width CV 14.4 % (11.6-14.6); RBC Distribution Width SD 48.3 fl (35.1-43.9); Red Blood Count 3.43 M/mm3 (4.6-6.2); White Blood Count 13.5 K/mm3 (4.4-11.0)
[2020-07-30 05:55] LABS: Anion Gap 7 (5-15); BUN 26 mg/dL (7-18); BUN/Creat Ratio 28.8 RATIO (10-20); Calcium,Total 8.3 mg/dL (8.5-10.1); Chloride 105 mmol/L (98-107); EST Glomerular Filtration Rate 86 mL/min (>60); Est Glom Filt Rate - Afr Amer 104 mL/min (>60); Estimated Creatinine Clearance 74.25 ml/min; Glucose 115 mg/dL (74-106); Potassium 3.7 mmol/L (3.5-5.1); Sodium Level 138 mmol/L (136-145)
[2020-07-30 06:36] LABS: Bedside Glucose 108 mg/dL (70-110)
--- NOTE | 2020-07-30 11:20 | OP.PCM_ITS ---
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 79-year-old gent was taken to the special procedures lab placed on the table. Bilateral groins were sterilely p repped and draped. He received 50 mcg of fentanyl and 1 mg of Versed is intravenous sedation. Under ultrasound guidance 2% lidocaine was instilled in the left groin followed by ultrasound-guided micropuncture technique. Micropuncture wire was inserted. Micropuncture sheath inserted. 035 J-wire inserted a 5 [place] short sheath catheter was inserted. Using an 035 angled Glidewire a universal flush catheter was placed in the mid infrarenal aorta. Using 15 cc a second for 10 cc a AP abdominal pelvic arteriogram was obtained. Then using the 035 angled Glidewire the flush catheter was advanced down to the proximal right superficial femoral artery. Static views of the right thigh were obtained. We then obtained use of the infrageniculate area. I was able to advance an 035 quick cross catheter over a Glidewire placing that suprageniculate and obtaining runoff used to the right leg. Having achieved that there did not appear to be any named vessel patent in the right lower extremity distal to an occluded infrageniculate popliteal. Down in the distal third there was suggestion of possible refilling of the posterior tibialis. I did try to advance the quick cross catheter and used a airplane patrol pilot 150 wire however I could not get easy advancement. Could not get the wire to tract. Repeat images failed to demonstrate any viable vessel in which she interact. I elected to complete the procedure. The catheter was removed over the wire. A Mynx device was deployed in the left groin. Additional pressure was used for hemostasis. No apparent complication blood loss minimal. Abdomen pelvis demonstrate widely patent abdominal aorta common iliacs internal iliacs external iliacs. The right profundofemoral and superficial femoral was patent throughout. The suprageniculate and retrogenerative popliteal is patent. There is severe disease of the infrageniculate popliteal which then occludes at the trifurcation. None of the 3 named infrageniculate vessels are patent. The very distal third of the lower extremity there is a suggestion of retrograde filling of the posterior tibial. There is no name flow that extends to the foot There is extensive collateralization noted throughout the right lower extremity. The findings would suggest very long-term chronic occlusive disease. I have discussed the situation with Dr. Clarita Carbajal. Julio Cesar Suarez M.D., F.A.C.S. Type of Anesthesia:: IV Sedation
--- NOTE | 2020-07-30 11:26 | PCM.PN.BLA ---
Progress Note No endovascular intervention feasible for the right lower extremity. Denise STROKE Vital Signs/Narrative: Vital Signs Temp Pulse Resp BP Pulse Ox 07/30/20 09:12 97.8 F 79 18 160/85 H 95
[2020-07-30 11:31] LABS: ACT Activated Clotting Time 153 sec (74-137)
--- NOTE | 2020-07-30 12:35 | PCM.PROGNOTE ---
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 Complains of stomachache overnight which is since resolved. Denies other symptoms or complaints. 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 - Physical Exam Vitals/I&O's: Vital Signs Temp Pulse Resp BP Pulse Ox 97.8 F 79 18 160/85 H 95 07/30/20 09:12 07/30/20 09:12 07/30/20 09:12 07/30/20 09:12 07/30/20 09:12 Oxygen Flow Rate (L/min) 2 Oxygen Delivery Method Room Air Weight: 200 lb 6.403 oz Body Mass Index (BMI) 27.3 Intake and Output for Last 24 Hours 07/28/20 07/29/20 07/30/20 23:59 23:59 23:59 Intake Total 1456 / 1456 1016 / 1136 432 / 432 Output Total 1250 / 1250 850 / 1225 475 / 475 Balance 206 / 206 166 / -89 -43 / -43 General: Alert, Oriented x3, Cooperative HEENT: Atraumatic, PERRLA, EOMI, Normocephalic Neck: Supple, No JVD, Negative Carotid Bruits Lungs: Clear to auscultation, Normal air movement Cardiovascular: Regular rate, No murmurs Abdomen: Bowel Sounds Present, Soft, Non Tender, Non-Distended Extremities: No clubbing, No cyanosis, No edema, Capillary Refill Less than 3 Seconds Skin: No rashes, No breakdown, - - Right foot dressing intact Musculoskeletal: No Tenderness to Palpation of Joints or Extremities Neurological: Cranial nerves II-XII grossly intact, Neuro grossly intact Psych/Mental Status: Normal Affect, Appropriate Microbiology Past 72 Hours 07/24/20 16:50 Wound - Toe Gram Stain - Final 07/24/20 16:50 Wound - Toe Wound Culture - Final Staphylococcus aureus 07/24/20 16:50 Wound - Toe Anaerobic Culture - Final Anaerobic cocci 07/22/20 12:25 Blood Culture (Wb) - Left Hand Blood Culture - Final No growth in 5 days. 07/22/20 12:23 Blood Culture (Wb) - Left Forearm Blood Culture - Final No growth in 5 days. Laboratory Results 07/29/20 15:27: Random Vancomycin 14.4 07/29/20 17:03: POC Glucose 75 07/29/20 21:33: POC Glucose 116 H 07/30/20 05:05: WBC 13.5 H, RBC 3.43 L, Hgb 10.3 L, Hct 31.6 L, MCV 92.1, MCH 30.0, MCHC 32.6, RDW Std Deviation 48.3 H, RDW Coeff of Sacha 14.4, Plt Count 364, MPV 11.3 07/30/20 05:05: Sodium 138, Potassium 3.7, Chloride 105, Carbon Dioxide 26.0, Anion Gap 7, BUN 26 H, Creatinine 0.90, Estim Creat Clear Calc 74.25, Est GFR (MDRD) Af Amer 104, Est GFR (MDRD) Non-Af 86, BUN/Creatinine Ratio 28.8 H, Glucose 115 H, Calcium 8.3 L 07/30/20 06:26: POC Glucose 108 07/30/20 10:44: Activated Clotting Time 153 H Current Medications Acetaminophen (Acetaminophen 325 Mg Tablet) 650 mg PO Q6H PRN PRN PRN Reason: Pain Score 1-10/Temp > 100.7 F Last Admin: 07/30/20 00:00 Dose: 650 mg Documented by: Al Hydroxide/Mg Hydroxide (Mag Hydrox/Al Hydrox/Simeth 30 Ml Udc) 30 ml PO Q6H PRN PRN PRN Reason: Gastric Burning Albuterol Sulfate (Albuterol 2.5 Mg/3 Ml Vial.Neb.) 2.5 mg INHALATION Q2H PRN PRN PRN Reason: Dyspnea, wheezing Last Admin: 07/28/20 05:32 Dose: 2.5 mg Documented by: Aspirin (Aspirin 81 Mg Tab.Chew) 81 mg PO DAILY@0800 [facility] Last Admin: 07/28/20 08:26 Dose: 81 mg Documented by: Clotrimazole (Clotrimazole 1 Tube) 1 applicatio TOPICAL BID [facility]; Protocol Last Admin: 07/29/20 21:38 Dose: 1 applicatio Documented by: Enoxaparin Sodium (Enoxaparin 40 Mg/0.4 Ml Syringe) 40 mg SC DAILY@0600 [facility] Last Admin: 07/29/20 05:04 Dose: 40 mg Documented by: Guaifenesin (Guaifenesin 10 Ml Udc (200mg/10ml)) 20 ml PO Q4H PRN PRN PRN Reason: COUGH Last Admin: 07/28/20 20:01 Dose: 20 ml Documented by: Hydralazine HCl (Hydralazine 20 Mg/Ml Vial) 10 mg IV Q4H PRN PRN PRN Reason: SBP > 160 Ampicillin Sodium/Sulbactam (Sodium 3 gm/ Sodium Chloride) 112 mls @ 150 mls/hr IV Q8 [facility] Last Infusion: 07/30/20 06:22 Dose: Infused Documented by: Vancomycin IV Pharmacy to Dose (1 ea/ Sodium Chloride) 500 mls @ 250 mls/hr IV X1 PRN; Protocol PRN Reason: Rx to Dose Vancomycin HCl (Vancomycin) 1,000 mg in 200 mls @ 200 mls/hr IV Q12H [facility] Last Infusion: 07/30/20 05:19 Dose: Infused Documented by: Insulin Human Lispro (Insulin Lispro 100 Unit/Ml Insuln.Pen) 0 unit SC ACHS [facility]; Protocol Last Admin: 07/30/20 05:59 Dose: Not Given Documented by: Insulin Lispro Protam/Lispro Human (Insulin Human 75/25 [place]) 20 unit SC BREAKFAST [facility] Last Admin: 07/30/20 08:16 Dose: Not Given Documented by: Insulin Lispro Protam/Lispro Human (Insulin Human 75/25 [place]) 10 unit SC DINNER [facility] Last Admin: 07/29/20 17:04 Dose: 10 u Documented by: Losartan Potassium (Losartan Potassium 25 Mg Tablet) 25 mg PO DAILY [facility] Last Admin: 07/29/20 09:48 Dose: 25 mg Documented by: Magnesium Hydroxide (Magnesium Hydroxide 30 Ml Udc) 30 ml PO DAILY PRN PRN PRN Reason: Constipation Melatonin (Melatonin 3 Mg Tablet) 3 mg PO QHS PRN PRN PRN Reason: INSOMNIA Metoprolol Succinate (Metoprolol(Xl)Succ 25 Mg Tablet) 12.5 mg PO DAILY [facility] Last Admin: 07/29/20 09:55 Dose: 12.5 mg Documented by: Montelukast Sodium (Montelukast 10 Mg Tablet) 10 mg PO DAILY [facility] Last Admin: 07/29/20 09:48 Dose: 10 mg Documented by: Nitroglycerin (Nitroglycerin (Inpatient Use) 0.4 Mg Tab.Subl) 0.4 mg SUBLINGUAL Q5M PRN PRN Reason: CARDIAC/CHEST PAIN Ondansetron HCl (Ondansetron 4 Mg/2 Ml Vial) 4 mg IV Q8H PRN PRN PRN Reason: NAUSEA/VOMITING Last Admin: 07/27/20 20:54 Dose: 4 mg Documented by: Oxycodone HCl (Oxycodone 5 Mg Tablet) 5 mg PO Q4H PRN PRN PRN Reason: Pain Score 4-5 Pantoprazole Sodium (Pantoprazole Sodium 40 Mg Tablet) 40 mg PO DAILY [facility] Last Admin: 07/29/20 09:49 Dose: 40 mg Documented by: Prochlorperazine Edisylate (Prochlorperazine 10 Mg/2 Ml Vial) 5 mg IV Q4H PRN PRN PRN Reason: Breakthrough Nausea/Vomiting Psyllium Hydrophilic Mucilloid (Psyllium 1 Packet) 1 packet PO DAILY PRN PRN PRN Reason: Constipation Senna/Docusate Sodium (Senna/Docusate Sodium 1 Tablet) 2 tablet PO BID PRN PRN PRN Reason: Constipation Sodium Chloride (0.9% Saline Lock 10 Ml Syringe) 10 - 40 ml IV UD PRN PRN Reason: SALINE FLUSH Last Admin: 07/30/20 04:13 Dose: 10 ml Documented by: Throat Lozenges (Benzocaine/Menthol 1 Lozenge) 1 lozenge MUCOUS MEM Q2H PRN PRN PRN Reason: SORE THROAT Last Admin: 07/29/20 06:33 Dose: 1 lozenge Documented by: Medical Necessity - Tobacco Use Smoking Status: Never smoker Tobacco Use: Non-smoker Assessment/Plan All Active Problems (Last Reviewed 05/16/20 @ 13:29 by Seema Yanes PA, PA) Elevation of cardiac enzymes (Acute) Near syncope (Acute) 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 Right great toe cellulitis with osteomyelitis-ID and podiatry following. Cultures growing MSSA. Continue vancomycin and Unasyn. Bone biopsy 07/25/2020 without evidence of acute osteomyelitis. Continue dressing changes as ordered. Nonweightbearing right hallux. 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 No intervention indicated. Await further podiatry and ID recommendations. Today is day 7 of IV antibiotics, possible discontinuation pending ID eval. 2. PAD-arterial studies show moderately severe right lower extremity arterial occlusive disease. Vascular surgery consulted. Right lower extremity arteriogram as noted above. 3. Debility, failure to thrive-history of falls. PT/OT. SNF recommended. 4. Type 2 diabetes vadklizu-[id number] with sliding scale insulin. Hemoglobin A1c 5.9%. 5. CAD with history of CABG/ischemic cardiomyopathy-on aspirin. Allergy to statin. 6. Carotid artery disease-history of right carotid endarterectomy. On aspirin. Allergy to statin as noted above. 7. Hypertension-stable, continue losartan regimen. 8. Hyperlipidemia- allergy to statin. 9. GERD-continue PPI. 10. Abnormal troponin-patient underwent stress test 07/23/2020 which showed no evidence of ischemia. EF 25%. Outpatient follow-up with cardiology. 11. 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 Worsening weakness and falls. Recommend outpatient neuro follow-up. DVT prophylaxis-Lovenox subcu Discharge planning: Patient recommended SNF, will continue to discuss with patient. This patient was seen by AUGUSTA Short under the supervision of Dr. Taylor. <Fly Taylor E - Last Filed: 07/30/20 13:48> - Physical Exam Vitals/I&O's: Vital Signs Temp Pulse Resp BP Pulse Ox 97.8 F 79 18 160/85 H 95 07/30/20 09:12 07/30/20 09:12 07/30/20 09:12 07/30/20 09:12 07/30/20 09:12 Oxygen Flow Rate (L/min) 2 Oxygen Delivery Method Room Air Weight: 200 lb 6.403 oz Body Mass Index (BMI) 27.3 Intake and Output for Last 24 Hours 07/28/20 07/29/20 07/30/20 23:59 23:59 23:59 Intake Total 1456 / 1456 1016 / 1136 432 / 432 Output Total 1250 / 1250 850 / 1225 475 / 475 Balance 206 / 206 166 / -89 -43 / -43 Microbiology Past 72 Hours 07/24/20 16:50 Wound - Toe Gram Stain - Final 07/24/20 16:50 Wound - Toe Wound Culture - Final Staphylococcus aureus 07/24/20 16:50 Wound - Toe Anaerobic Culture - Final Anaerobic cocci 07/22/20 12:25 Blood Culture (Wb) - Left Hand Blood Culture - Final No growth in 5 days. 07/22/20 12:23 Blood Culture (Wb) - Left Forearm Blood Culture - Final No growth in 5 days. Laboratory Results 07/29/20 15:27: Random Vancomycin 14.4 07/29/20 17:03: POC Glucose 75 07/29/20 21:33: POC Glucose 116 H 07/30/20 05:05: WBC 13.5 H, RBC 3.43 L, Hgb 10.3 L, Hct 31.6 L, MCV 92.1, MCH 30.0, MCHC 32.6, RDW Std Deviation 48.3 H, RDW Coeff of Sacha 14.4, Plt Count 364, MPV 11.3 07/30/20 05:05: Sodium 138, Potassium 3.7, Chloride 105, Carbon Dioxide 26.0, Anion Gap 7, BUN 26 H, Creatinine 0.90, Estim Creat Clear Calc 74.25, Est GFR (MDRD) Af Amer 104, Est GFR (MDRD) Non-Af 86, BUN/Creatinine Ratio 28.8 H, Glucose 115 H, Calcium 8.3 L 07/30/20 06:26: POC Glucose 108 07/30/20 10:44: Activated Clotting Time 153 H Current Medications Acetaminophen (Acetaminophen 325 Mg Tablet) 650 mg PO Q6H PRN PRN PRN Reason: Pain Score 1-10/Temp > 100.7 F Last Admin: 07/30/20 00:00 Dose: 650 mg Documented by: Al Hydroxide/Mg Hydroxide (Mag Hydrox/Al Hydrox/Simeth 30 Ml Udc) 30 ml PO Q6H PRN PRN PRN Reason: Gastric Burning Albuterol Sulfate (Albuterol 2.5 Mg/3 Ml Vial.Neb.) 2.5 mg INHALATION Q2H PRN PRN PRN Reason: Dyspnea, wheezing Last Admin: 07/28/20 05:32 Dose: 2.5 mg Documented by: Aspirin (Aspirin 81 Mg Tab.Chew) 81 mg PO DAILY@0800 [facility] Last Admin: 07/28/20 08:26 Dose: 81 mg Documented by: Clotrimazole (Clotrimazole 1 Tube) 1 applicatio TOPICAL BID [facility]; Protocol Last Admin: 07/29/20 21:38 Dose: 1 applicatio Documented by: Enoxaparin Sodium (Enoxaparin 40 Mg/0.4 Ml Syringe) 40 mg SC DAILY@0600 [facility] Last Admin: 07/29/20 05:04 Dose: 40 mg Documented by: Guaifenesin (Guaifenesin 10 Ml Udc (200mg/10ml)) 20 ml PO Q4H PRN PRN PRN Reason: COUGH Last Admin: 07/28/20 20:01 Dose: 20 ml Documented by: Hydralazine HCl (Hydralazine 20 Mg/Ml Vial) 10 mg IV Q4H PRN PRN PRN Reason: SBP > 160 Ampicillin Sodium/Sulbactam (Sodium 3 gm/ Sodium Chloride) 112 mls @ 150 mls/hr IV Q8 [facility] Last Infusion: 07/30/20 06:22 Dose: Infused Documented by: Insulin Human Lispro (Insulin Lispro 100 Unit/Ml Insuln.Pen) 0 unit SC ACHS [facility]; Protocol Last Admin: 07/30/20 05:59 Dose: Not Given Documented by: Insulin Lispro Protam/Lispro Human (Insulin Human 75/25 [place]) 20 unit SC BREAKFAST [facility] Last Admin: 07/30/20 08:16 Dose: Not Given Documented by: Insulin Lispro Protam/Lispro Human (Insulin Human 75/25 [place]) 10 unit SC DINNER [facility] Last Admin: 07/29/20 17:04 Dose: 10 u Documented by: Losartan Potassium (Losartan Potassium 25 Mg Tablet) 25 mg PO DAILY [facility] Last Admin: 07/29/20 09:48 Dose: 25 mg Documented by: Magnesium Hydroxide (Magnesium Hydroxide 30 Ml Udc) 30 ml PO DAILY PRN PRN PRN Reason: Constipation Melatonin (Melatonin 3 Mg Tablet) 3 mg PO QHS PRN PRN PRN Reason: INSOMNIA Metoprolol Succinate (Metoprolol(Xl)Succ 25 Mg Tablet) 12.5 mg PO DAILY [facility] Last Admin: 07/29/20 09:55 Dose: 12.5 mg Documented by: Montelukast Sodium (Montelukast 10 Mg Tablet) 10 mg PO DAILY [facility] Last Admin: 07/29/20 09:48 Dose: 10 mg Documented by: Nitroglycerin (Nitroglycerin (Inpatient Use) 0.4 Mg Tab.Subl) 0.4 mg SUBLINGUAL Q5M PRN PRN Reason: CARDIAC/CHEST PAIN Ondansetron HCl (Ondansetron 4 Mg/2 Ml Vial) 4 mg IV Q8H PRN PRN PRN Reason: NAUSEA/VOMITING Last Admin: 07/27/20 20:54 Dose: 4 mg Documented by: Oxycodone HCl (Oxycodone 5 Mg Tablet) 5 mg PO Q4H PRN PRN PRN Reason: Pain Score 4-5 Pantoprazole Sodium (Pantoprazole Sodium 40 Mg Tablet) 40 mg PO DAILY [facility] Last Admin: 07/29/20 09:49 Dose: 40 mg Documented by: Prochlorperazine Edisylate (Prochlorperazine 10 Mg/2 Ml Vial) 5 mg IV Q4H PRN PRN PRN Reason: Breakthrough Nausea/Vomiting Psyllium Hydrophilic Mucilloid (Psyllium 1 Packet) 1 packet PO DAILY PRN PRN PRN Reason: Constipation Senna/Docusate Sodium (Senna/Docusate Sodium 1 Tablet) 2 tablet PO BID PRN PRN PRN Reason: Constipation Sodium Chloride (0.9% Saline Lock 10 Ml Syringe) 10 - 40 ml IV UD PRN PRN Reason: SALINE FLUSH Last Admin: 07/30/20 04:13 Dose: 10 ml Documented by: Throat Lozenges (Benzocaine/Menthol 1 Lozenge) 1 lozenge MUCOUS MEM Q2H PRN PRN PRN Reason: SORE THROAT Last Admin: 07/29/20 06:33 Dose: 1 lozenge Documented by: Assessment/Plan Hospitalist note: I am seeing this patient in conjunction with Vangie Friedman. I independently seen and examined the patient. Progress note above, laboratory data and imaging studies reviewed and I concur with the above treatment plan. Patient just came back from the OR after he underwent angiography. He denied any significant complaints. His blood pressure slight elevated, other vital signs are stable. - Physical Exam General: Alert, Oriented x3, Cooperative, No apparent distress. HEENT: Atraumatic, PERRLA, EOMI. Neck: Supple, No JVD, Negative Carotid Bruits, Trachea Midline, Thyroid Normal. Lungs: Diminished breath sounds bilateral, otherwise clear no rhonchi, No wheeze, No rales. Cardiovascular: Regular rate, Regular Rhythm, Normal S1, Normal S2, PMI Normal. Abdomen: Bowel Sounds Present, Soft, Non Tender, Non-Distended, No Hepato-splenomegaly. Extremities: No clubbing, No cyanosis, No edema Skin: No rashes, No breakdown Neurological: Cranial nerves are intact, neuro grossly intact Assessment and plan: #1 right big toe cellulitis/osteomyelitis: He is on IV vancomycin and Unasyn. Wound culture reviewed growing MSSA. Bone biopsy revealed no evidence of acute osteomyelitis although MRI right foot revealed possible osteomyelitis. Infectious disease as well as podiatry medicine are on the case. Plan to continue same treatment. #2 severe peripheral vascular disease: Status post angiography that revealed chronic arterial occlusive disease, no interventions performed. Continue aspirin. #3 abnormal cardiac enzymes: EKG without acute hemic changes. Patient had stress test during this hospital stay that showed no evidence of stress-induced myocardial ischemia. 2D echocardiogram revealed ejection fraction of 25 to 30%, stage I diastolic dysfunction. Continue losartan and metoprolol. #4 other chronic medical problems: Stable, continue current medications. This note was generated with [employer] dictation software. It may contain incorrect words, spelling, and punctuation that were not noted in checking the note before signing. Inpatient E&M: 68662 Subs Hosp L2
--- NOTE | 2020-07-30 12:53 | PN_ITS ---
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 Patient with severe PAD had lower extremity angiogram today by Dr. Suarez. Patient is currently laying flat, has no complaints of fever, chills, nausea or vomiting. - Physical Exam Vitals/I&O's: Vital Signs Temp Pulse Resp BP Pulse Ox 97.8 F 79 18 160/85 H 95 07/30/20 09:12 07/30/20 09:12 07/30/20 09:12 07/30/20 09:12 07/30/20 09:12 Oxygen Flow Rate (L/min) 2 Oxygen Delivery Method Room Air Weight: 90.9 kg Body Mass Index (BMI) 27.3 Intake and Output for Last 24 Hours 07/28/20 07/29/20 07/30/20 23:59 23:59 23:59 Intake Total 1456 / 1456 1016 / 1136 432 / 432 Output Total 1250 / 1250 850 / 1225 475 / 475 Balance 206 / 206 166 / -89 -43 / -43 General: Alert, Oriented x3, Cooperative, No apparent distress Extremities: - - Dry stable eshcar/necrotic tissue to the distal right 1st toe, there is some erythema to the toe, there is no drainage, no maloder, no fluctuance, no streaking; no other open lesions to the right foot or ankle. No new areas of break down right 1st toe. Psych/Mental Status: Appropriate Microbiology Past 72 Hours 07/24/20 16:50 Wound - Toe Gram Stain - Final 07/24/20 16:50 Wound - Toe Wound Culture - Final Staphylococcus aureus 07/24/20 16:50 Wound - Toe Anaerobic Culture - Final Anaerobic cocci 07/22/20 12:25 Blood Culture (Wb) - Left Hand Blood Culture - Final No growth in 5 days. 07/22/20 12:23 Blood Culture (Wb) - Left Forearm Blood Culture - Final No growth in 5 days. Laboratory Results 07/29/20 15:27: Random Vancomycin 14.4 07/29/20 17:03: POC Glucose 75 07/29/20 21:33: POC Glucose 116 H 07/30/20 05:05: WBC 13.5 H, RBC 3.43 L, Hgb 10.3 L, Hct 31.6 L, MCV 92.1, MCH 30.0, MCHC 32.6, RDW Std Deviation 48.3 H, RDW Coeff of Sacha 14.4, Plt Count 364, MPV 11.3 07/30/20 05:05: Sodium 138, Potassium 3.7, Chloride 105, Carbon Dioxide 26.0, Anion Gap 7, BUN 26 H, Creatinine 0.90, Estim Creat Clear Calc 74.25, Est GFR (MDRD) Af Amer 104, Est GFR (MDRD) Non-Af 86, BUN/Creatinine Ratio 28.8 H, Glucose 115 H, Calcium 8.3 L 07/30/20 06:26: POC Glucose 108 07/30/20 10:44: Activated Clotting Time 153 H Current Medications Acetaminophen (Acetaminophen 325 Mg Tablet) 650 mg PO Q6H PRN PRN PRN Reason: Pain Score 1-10/Temp > 100.7 F Last Admin: 07/30/20 00:00 Dose: 650 mg Documented by: Al Hydroxide/Mg Hydroxide (Mag Hydrox/Al Hydrox/Simeth 30 Ml Udc) 30 ml PO Q6H PRN PRN PRN Reason: Gastric Burning Albuterol Sulfate (Albuterol 2.5 Mg/3 Ml Vial.Neb.) 2.5 mg INHALATION Q2H PRN PRN PRN Reason: Dyspnea, wheezing Last Admin: 07/28/20 05:32 Dose: 2.5 mg Documented by: Aspirin (Aspirin 81 Mg Tab.Chew) 81 mg PO DAILY@0800 [facility] Last Admin: 07/28/20 08:26 Dose: 81 mg Documented by: Clotrimazole (Clotrimazole 1 Tube) 1 applicatio TOPICAL BID [facility]; Protocol Last Admin: 07/29/20 21:38 Dose: 1 applicatio Documented by: Enoxaparin Sodium (Enoxaparin 40 Mg/0.4 Ml Syringe) 40 mg SC DAILY@0600 [facility] Last Admin: 07/29/20 05:04 Dose: 40 mg Documented by: Guaifenesin (Guaifenesin 10 Ml Udc (200mg/10ml)) 20 ml PO Q4H PRN PRN PRN Reason: COUGH Last Admin: 07/28/20 20:01 Dose: 20 ml Documented by: Hydralazine HCl (Hydralazine 20 Mg/Ml Vial) 10 mg IV Q4H PRN PRN PRN Reason: SBP > 160 Ampicillin Sodium/Sulbactam (Sodium 3 gm/ Sodium Chloride) 112 mls @ 150 mls/hr IV Q8 [facility] Last Infusion: 07/30/20 06:22 Dose: Infused Documented by: Insulin Human Lispro (Insulin Lispro 100 Unit/Ml Insuln.Pen) 0 unit SC ACHS [facility]; Protocol Last Admin: 07/30/20 05:59 Dose: Not Given Documented by: Insulin Lispro Protam/Lispro Human (Insulin Human 75/25 [place]wickpen) 20 unit SC BREAKFAST [facility] Last Admin: 07/30/20 08:16 Dose: Not Given Documented by: Insulin Lispro Protam/Lispro Human (Insulin Human 75/25 [place]wickpen) 10 unit SC DINNER [facility] Last Admin: 07/29/20 17:04 Dose: 10 u Documented by: Losartan Potassium (Losartan Potassium 25 Mg Tablet) 25 mg PO DAILY [facility] Last Admin: 07/29/20 09:48 Dose: 25 mg Documented by: Magnesium Hydroxide (Magnesium Hydroxide 30 Ml Udc) 30 ml PO DAILY PRN PRN PRN Reason: Constipation Melatonin (Melatonin 3 Mg Tablet) 3 mg PO QHS PRN PRN PRN Reason: INSOMNIA Metoprolol Succinate (Metoprolol(Xl)Succ 25 Mg Tablet) 12.5 mg PO DAILY [facility] Last Admin: 07/29/20 09:55 Dose: 12.5 mg Documented by: Montelukast Sodium (Montelukast 10 Mg Tablet) 10 mg PO DAILY [facility] Last Admin: 07/29/20 09:48 Dose: 10 mg Documented by: Nitroglycerin (Nitroglycerin (Inpatient Use) 0.4 Mg Tab.Subl) 0.4 mg SUBLINGUAL Q5M PRN PRN Reason: CARDIAC/CHEST PAIN Ondansetron HCl (Ondansetron 4 Mg/2 Ml Vial) 4 mg IV Q8H PRN PRN PRN Reason: NAUSEA/VOMITING Last Admin: 07/27/20 20:54 Dose: 4 mg Documented by: Oxycodone HCl (Oxycodone 5 Mg Tablet) 5 mg PO Q4H PRN PRN PRN Reason: Pain Score 4-5 Pantoprazole Sodium (Pantoprazole Sodium 40 Mg Tablet) 40 mg PO DAILY [facility] Last Admin: 07/29/20 09:49 Dose: 40 mg Documented by: Prochlorperazine Edisylate (Prochlorperazine 10 Mg/2 Ml Vial) 5 mg IV Q4H PRN PRN PRN Reason: Breakthrough Nausea/Vomiting Psyllium Hydrophilic Mucilloid (Psyllium 1 Packet) 1 packet PO DAILY PRN PRN PRN Reason: Constipation Senna/Docusate Sodium (Senna/Docusate Sodium 1 Tablet) 2 tablet PO BID PRN PRN PRN Reason: Constipation Sodium Chloride (0.9% Saline Lock 10 Ml Syringe) 10 - 40 ml IV UD PRN PRN Reason: SALINE FLUSH Last Admin: 07/30/20 04:13 Dose: 10 ml Documented by: Throat Lozenges (Benzocaine/Menthol 1 Lozenge) 1 lozenge MUCOUS MEM Q2H PRN PRN PRN Reason: SORE THROAT Last Admin: 07/29/20 06:33 Dose: 1 lozenge Documented by: Medical Necessity - Tobacco Use Smoking Status: Never smoker Tobacco Use: Non-smoker Assessment/Plan All Active Problems (Last Reviewed 05/16/20 @ 13:29 by Seema Yanes PA, PA) Elevation of cardiac enzymes (Acute) Near syncope (Acute) 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 Reviewed diagnostic data. We have discussed/consulted with Dr. Suarez who performed lower extremity angiogram today. Patient has poor arterial flow to toe and foot, and has very questionable healing potential for any toe or partial foot amputation. Right 1st toe is dry and stable at this time. Also of note patient would like to hold off on any amputation at this time. We will continue to perform monitoring of the toe, let demarcate, perform local wound care, as well as offloading; and patient also on antibiotics at this time. Patient understands eventually he may require an amputation. Continue daily dressing changes with aquacel silver covered by [facility]. Continue with antibiotic therapy per Infectious Disease/ID service. Discussed with Dr. Garcia. No weightbearing to right forefoot, ok to put weight on right heel for transitions only. Podiatry will continue to follow. Please contact if any concerns. Recommend patient follow up with Dr. Carbajal at wound center within 1 week of discharge from hospital.
--- NOTE | 2020-07-30 14:17 | CASEMGMT ---
Addendum entered by Luz Lindsay 07/30/20 14:46: SW spoke w/son, let him know [facility] would be able to take pt. He is going to speak w/pt when he comes in to see him this afternoon. KALYN Dubois Original Note: SW spoke w/pt again in room in regard to discharge plan. SW reminded pt he needs PT, needs IV antibiotics, dressing changes, and needs to stay off of his foot. Pt states understanding, initially said his family could come stay w/him or he could go stay w/them. After further discussion he did okay SW to see if [facility] would have a bed. Pt asked ask how it is covered, SW explained that insurance would cover it. Pt also asked how long he would need to be there, SW explained is not certain, will depend possibly on how long he needs IV antibiotics. Pt may be agreeable to TCU, agreeable to have SW call and see if they would be able to take him. After some discussion, pt also okay w/SW calling pt's son. Pt also states he would be speaking w/pt this evening. SW called son Emanuel in regard to pt and the discharge plan. SW explained spoke w/pt a few times, pt gave permission for SW to call him today. SW explained we have been speaking w/him about going somewhere for rehab, and initially pt wasn't agreeable. SW explained that now pt is at least agreeable to have SW see if [facility] can take pt. Son explained that pt makes his decisions but understands pt may need rehab. He states the pt and family's goal is for pt to be able to ultimately return home. SW reviewed that pt needs dressing changes, IV antibiotics and therapy. SW explained that this would be the goal in TCU as well. SW explained still need to see if [facility] would have a bed for pt. SW explained pt had said family could come stay w/him, son states that he and his works as does his daughter and her . Son states he thinks pt does realize he needs to go to rehab. He states will speak w/pt tonight, and will follow up w/SW tomorrow. SW called [facility]CU, they would be able to take pt tomorrow. SW will continue to follow. KALYN Dubois
--- NOTE | 2020-07-30 14:18 | CRPHASE1_ITS ---
Patient Communication Former Patient:: Phase I PHII Cardiac Rehab Discussed with Patient:: Yes Guide to Cardiac Rehab Given to Patient:: Yes Cardiac Rehab Facility Choice List Given to Patient:: Yes Choice Program [facility] PHII:: Communication Given to CR, Refer to [facility] Moisture Meter Operator:: Yosi Patiño Phase II Cardiac Rehab:: Yes Sessions:: 36 sessions - 3 days/wk, 12 weeks Risk Factors/Lifestyle Laboratory Values: Cardiac Rehab Phase I Labs Hemoglobin A1c 5.9 % (3.8-5.6) H 07/24/20 05:20 Triglycerides 83 mg/dL (-199) 07/23/20 05:20 Cholesterol 123 mg/dL (200) 07/23/20 05:20 LDL Cholesterol 67 mg/dL (0-130) 07/23/20 05:20 HDL Cholesterol 39 mg/dL (40-) L 07/23/20 05:20 Cardiac Rehabilitation Info Cardiac Rehabilitation Program Information: Cardiac Rehabilitation is important for patients like you who are recovering from a heart problem. Cardiac rehabilitation programs are recognized as integral to the continued care of the patient with coronary heart disease. The cardiac rehabilitation program is designed to optimize a patient's physical, psychological, and social functioning. Health youth care worker work in cardiac rehabilitation programs and assist you with getting the treatments you need to get stronger and healthier - like exercise, healthy eating habits, and medications. Cardiac rehabilitation has been show to help people with heart problems live longer and have better life enjoyment than people who do not go to cardiac rehabilitation. Please contact the Cardiac Rehabilitation Program at [facility] at in two weeks if you have not heard from them.
--- NOTE | 2020-07-30 14:20 | CRPH1.INSTRU ---
General Education CAD and cardiac anatomy and function:: Needs reinforcement Explanation of diagnoses and procedures:: Needs reinforcement Sign/Symptoms of NV:: Needs reinforcement Antiplatelet therapy: Needs reinforcement Proper use of NTG-SL: Needs reinforcement Emergency procedures and activation of EMS: Needs reinforcement Compliance of all prescribed medications: Needs reinforcement Smoking Nicotine/Smoking Response Code:: Needs reinforcement Dyslipidemia Dyslipidemia Response Code:: Needs reinforcement Overweight/Obesity Patient Overweight/Obesity Risk Factors Are:: BMI Normal [24-29 & > 65 years old] Overweight/Obesity:: Needs reinforcement Hypertension Hypertension:: Needs reinforcement Heart Disease Heart Disease Response Code:: Needs reinforcement Diabetes Diabetes:: Needs reinforcement Metabolic Syndrome Metabolic Syndrome Response Code:: Needs reinforcement Sedentary Sedentary Response Code:: Needs reinforcement
[2020-07-30] MEDS: Losartan Potassium 25 MG Tablet PO (14:33)
[2020-07-30] MEDS: Pantoprazole Sodium 40 MG Tablet PO (14:34)
[2020-07-30] MEDS: Metoprolol(XL)Succ 25 MG Tablet 12.5 MG PO (14:34)
[2020-07-30] MEDS: Montelukast 10 MG Tablet PO (14:34)
--- NOTE | 2020-07-30 15:38 | PCM.PN.ID ---
Patient Problems: Active and Suspected Problems (Last Updated 07/30/20 @ 13:[address] 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 Says he was told blood flow is good enough for healthy function. - Physical Exam Vitals/I&O's: Vital Signs Temp Pulse Resp BP Pulse Ox 98.3 F 80 19 H 171/87 H 95 07/30/20 13:32 07/30/20 14:34 07/30/20 13:32 07/30/20 13:32 07/30/20 13:32 Oxygen Flow Rate (L/min) 2 Oxygen Delivery Method Nasal Cannula Weight: 90.9 kg Body Mass Index (BMI) 27.3 Intake and Output for Last 24 Hours 07/28/20 07/29/20 07/30/20 23:59 23:59 23:59 Intake Total 1456 / 1456 1016 / 1136 432 / 432 Output Total 1250 / 1250 850 / 1225 475 / 475 Balance 206 / 206 166 / -89 -43 / -43 General: Alert, Cooperative, No apparent distress Lungs: Clear to auscultation, Normal air movement Cardiovascular: Regular rate, Regular Rhythm Abdomen: Soft, Non Tender, Non-Distended Skin: No rashes, Ulcer/ Wound - foot wrapped Microbiology Past 72 Hours 07/24/20 16:50 Wound - Toe Gram Stain - Final 07/24/20 16:50 Wound - Toe Wound Culture - Final Staphylococcus aureus 07/24/20 16:50 Wound - Toe Anaerobic Culture - Final Anaerobic cocci 07/22/20 12:25 Blood Culture (Wb) - Left Hand Blood Culture - Final No growth in 5 days. 07/22/20 12:23 Blood Culture (Wb) - Left Forearm Blood Culture - Final No growth in 5 days. Laboratory Results 07/29/20 15:27: Random Vancomycin 14.4 07/29/20 17:03: POC Glucose 75 07/29/20 21:33: POC Glucose 116 H 07/30/20 05:05: WBC 13.5 H, RBC 3.43 L, Hgb 10.3 L, Hct 31.6 L, MCV 92.1, MCH 30.0, MCHC 32.6, RDW Std Deviation 48.3 H, RDW Coeff of Sacha 14.4, Plt Count 364, MPV 11.3 07/30/20 05:05: Sodium 138, Potassium 3.7, Chloride 105, Carbon Dioxide 26.0, Anion Gap 7, BUN 26 H, Creatinine 0.90, Estim Creat Clear Calc 74.25, Est GFR (MDRD) Af Amer 104, Est GFR (MDRD) Non-Af 86, BUN/Creatinine Ratio 28.8 H, Glucose 115 H, Calcium 8.3 L 07/30/20 06:26: POC Glucose 108 07/30/20 10:44: Activated Clotting Time 153 H Current Medications Acetaminophen (Acetaminophen 325 Mg Tablet) 650 mg PO Q6H PRN PRN PRN Reason: Pain Score 1-10/Temp > 100.7 F Last Admin: 07/30/20 00:00 Dose: 650 mg Documented by: Al Hydroxide/Mg Hydroxide (Mag Hydrox/Al Hydrox/Simeth 30 Ml Udc) 30 ml PO Q6H PRN PRN PRN Reason: Gastric Burning Albuterol Sulfate (Albuterol 2.5 Mg/3 Ml Vial.Neb.) 2.5 mg INHALATION Q2H PRN PRN PRN Reason: Dyspnea, wheezing Last Admin: 07/28/20 05:32 Dose: 2.5 mg Documented by: Aspirin (Aspirin 81 Mg Tab.Chew) 81 mg PO DAILY@0800 [facility] Last Admin: 07/28/20 08:26 Dose: 81 mg Documented by: Clotrimazole (Clotrimazole 1 Tube) 1 applicatio TOPICAL BID [facility]; Protocol Last Admin: 07/30/20 10:12 Dose: Not Given Documented by: Enoxaparin Sodium (Enoxaparin 40 Mg/0.4 Ml Syringe) 40 mg SC DAILY@0600 [facility] Last Admin: 07/29/20 05:04 Dose: 40 mg Documented by: Guaifenesin (Guaifenesin 10 Ml Udc (200mg/10ml)) 20 ml PO Q4H PRN PRN PRN Reason: COUGH Last Admin: 07/28/20 20:01 Dose: 20 ml Documented by: Hydralazine HCl (Hydralazine 20 Mg/Ml Vial) 10 mg IV Q4H PRN PRN PRN Reason: SBP > 160 Ampicillin Sodium/Sulbactam (Sodium 3 gm/ Sodium Chloride) 112 mls @ 150 mls/hr IV Q8 [facility] Last Admin: 07/30/20 14:50 Dose: 150 mls/hr Documented by: Insulin Human Lispro (Insulin Lispro 100 Unit/Ml Insuln.Pen) 0 unit SC ACHS [facility]; Protocol Last Admin: 07/30/20 11:00 Dose: Not Given Documented by: Insulin Lispro Protam/Lispro Human (Insulin Human 75/25 Kwickpen) 20 unit SC BREAKFAST [facility] Last Admin: 07/30/20 08:16 Dose: Not Given Documented by: Insulin Lispro Protam/Lispro Human (Insulin Human 75/25 [place]wickpen) 10 unit SC DINNER [facility] Last Admin: 07/29/20 17:04 Dose: 10 u Documented by: Losartan Potassium (Losartan Potassium 25 Mg Tablet) 25 mg PO DAILY [facility] Last Admin: 07/30/20 14:33 Dose: 25 mg Documented by: Magnesium Hydroxide (Magnesium Hydroxide 30 Ml Udc) 30 ml PO DAILY PRN PRN PRN Reason: Constipation Melatonin (Melatonin 3 Mg Tablet) 3 mg PO QHS PRN PRN PRN Reason: INSOMNIA Metoprolol Succinate (Metoprolol(Xl)Succ 25 Mg Tablet) 12.5 mg PO DAILY [facility] Last Admin: 07/30/20 14:34 Dose: 12.5 mg Documented by: Montelukast Sodium (Montelukast 10 Mg Tablet) 10 mg PO DAILY [facility] Last Admin: 07/30/20 14:34 Dose: 10 mg Documented by: Nitroglycerin (Nitroglycerin (Inpatient Use) 0.4 Mg Tab.Subl) 0.4 mg SUBLINGUAL Q5M PRN PRN Reason: CARDIAC/CHEST PAIN Ondansetron HCl (Ondansetron 4 Mg/2 Ml Vial) 4 mg IV Q8H PRN PRN PRN Reason: NAUSEA/VOMITING Last Admin: 07/27/20 20:54 Dose: 4 mg Documented by: Oxycodone HCl (Oxycodone 5 Mg Tablet) 5 mg PO Q4H PRN PRN PRN Reason: Pain Score 4-5 Pantoprazole Sodium (Pantoprazole Sodium 40 Mg Tablet) 40 mg PO DAILY [facility] Last Admin: 07/30/20 14:34 Dose: 40 mg Documented by: Prochlorperazine Edisylate (Prochlorperazine 10 Mg/2 Ml Vial) 5 mg IV Q4H PRN PRN PRN Reason: Breakthrough Nausea/Vomiting Psyllium Hydrophilic Mucilloid (Psyllium 1 Packet) 1 packet PO DAILY PRN PRN PRN Reason: Constipation Senna/Docusate Sodium (Senna/Docusate Sodium 1 Tablet) 2 tablet PO BID PRN PRN PRN Reason: Constipation Sodium Chloride (0.9% Saline Lock 10 Ml Syringe) 10 - 40 ml IV UD PRN PRN Reason: SALINE FLUSH Last Admin: 07/30/20 04:13 Dose: 10 ml Documented by: Throat Lozenges (Benzocaine/Menthol 1 Lozenge) 1 lozenge MUCOUS MEM Q2H PRN PRN PRN Reason: SORE THROAT Last Admin: 07/29/20 06:33 Dose: 1 lozenge Documented by: Medical Necessity - Tobacco Use Smoking Status: Never smoker Tobacco Use: Non-smoker Route of nutrition/ use of supplements: [] Nutritional Intake: [] IV Site: [] Rosenberg Catheter: [] - Assessment/Plan Antibiotics: [] Assessment/Plan: [] Active and Suspected Problems (Last Reviewed 05/16/20 @ 13:29 by Seema Yanes PA, PA) Elevation of cardiac enzymes (Acute) Near syncope (Acute) 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 Carbajal neg so far. Poor bloodflow, angio done today. Cont unasyn. Cx with MSSA and anaerobes. If he is not getting an amputation, will write for picc and 6 weeks ertapenem once daily to try to make it easier in terms of dosing. Stop date 09/04/20, weekly bmp, cbc, LFT, and esr. ID followup in 2-3 weeks. Will follow, d/w primary team and Dr. Tom
[2020-07-30] MEDS: Insulin Human 75/25 Kwickpen 10 UNIT SC (16:42)
[2020-07-30] MEDS: Insulin Lispro 100 UNIT/ML INSULN.PEN SC ×2 (16:43→21:36)
[2020-07-30 16:51] LABS: Bedside Glucose 161 mg/dL (70-110)
--- NOTE | 2020-07-30 18:10 | NURSING ---
Patient calls for assistance to go to restroom. Son at bedside. Patient expresses desire to have a bowel movement, Patient made aware that he uis very weak and nurse will need to get a bedside commode to prevent fall. Patient states that we're wasting time and starts to move to the edge of bed. Shortness of breath noted with increased activity at this time and nurse tells patient to sit at the edge of the bed prior to getting up to prevent any dizziness. Patient continues with effort to get out of bed and states, let's go. Nonskid socks on feet and patient continues with great effort to get out of bed, despite verbalized concern for safety from nurse. son remains at bedside. Education provided to patient regarding medication side effects that can cause orthostatic hypotension and safety related to fall prevention. Patient verbalized understanding.
--- NOTE | 2020-07-30 20:18 | NURSING ---
3 CG at bedside indicates tip is in SVC, however, irregular rhythm on EKG present and therefore will confirm with xray also
--- NOTE | 2020-07-30 20:20 | RAD_ITS ---
STUDY: X-RAY CHEST REASON FOR EXAM: Male, 79 years old. PICC LINE PLACEMENT TECHNIQUE: Frontal view COMPARISON: 07/27/2020 FINDINGS: Stable sternotomy wires. There is a right-sided PICC line with tip at the proximal SVC. The lungs are expanded. Bilateral pleural effusions and bilateral patchy infiltrates, left more than right. Normal size heart. Normal mediastinum and pretty. Normal visualized pulmonary arteries. Normal visualized aortic arch and descending thoracic aorta. Degenerative changes of the thoracic spine. Normal visualized ribs, clavicles, and shoulders. There is no demonstrated abnormality of the visualized soft tissue structures of the upper abdomen. RAD/Chest 1 View (Portable) IMPRESSION: Bilateral pleural effusions and bilateral patchy infiltrates, left more than right. Electronically Signed: Darío Noe DO at 22:34 EST Tel [phone], Service support ,
[2020-07-30] MEDS: Acetaminophen 325 MG Tablet 650 MG PO ×2 (21:43)
[2020-07-30 21:45] LABS: Bedside Glucose 187 mg/dL (70-110)
[2020-07-31 02:59] VITALS: PULSE 79
[2020-07-31 03:30] VITALS: BP 145/81; PULSE 62; RESP 18; TEMP 36.7; O2SAT 95
[2020-07-31] MEDS: 0.9% Saline Lock 10 ML Syringe IV ×2 (06:27→13:01)
[2020-07-31] MEDS: Enoxaparin 40 MG/0.4 ML Syringe SC (06:29)
[2020-07-31 06:47] VITALS: O2SAT 95
[2020-07-31 07:00] VITALS: PULSE 75
[2020-07-31] MEDS: Insulin Lispro 100 UNIT/ML INSULN.PEN SC ×2 (08:04→11:14)
[2020-07-31] MEDS: Insulin Human 75/25 Kwickpen 20 UNIT SC (08:05)
[2020-07-31] MEDS: Aspirin 81 MG TAB.CHEW PO (08:06)
[2020-07-31 08:20] LABS: Bedside Glucose 176 mg/dL (70-110)
--- NOTE | 2020-07-31 09:58 | NURSING ---
Wound photo: right great toe
--- NOTE | 2020-07-31 09:59 | NURSING ---
wound photo: right great toe
[2020-07-31 10:00] VITALS: BP 136/69; PULSE 69; RESP 14; TEMP 36.7; O2SAT 96
[2020-07-31 10:05] VITALS: PULSE 69
[2020-07-31] MEDS: Montelukast 10 MG Tablet PO (10:05)
[2020-07-31] MEDS: Metoprolol(XL)Succ 25 MG Tablet 12.5 MG PO (10:05)
[2020-07-31] MEDS: Losartan Potassium 25 MG Tablet PO (10:05)
[2020-07-31] MEDS: Pantoprazole Sodium 40 MG Tablet PO (10:06)
--- NOTE | 2020-07-31 10:21 | PCM.PN.ID ---
Patient Problems: Active and Suspected Problems (Last Updated 07/30/20 @ 13:[address] 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 without evidence of necrosis (Acute) Subjective: Feeling ok, picc in place, no fever - Physical Exam Vitals/I&O's: Vital Signs Temp Pulse Resp BP Pulse Ox 98.1 F 69 14 136/69 H 96 07/31/20 10:00 07/31/20 10:05 07/31/20 10:00 07/31/20 10:00 07/31/20 10:00 Oxygen Flow Rate (L/min) 2 Oxygen Delivery Method Room Air Weight: 89.1 kg Body Mass Index (BMI) 27.3 Intake and Output for Last 24 Hours 07/29/20 07/30/20 07/31/20 23:59 23:59 23:59 Intake Total 1016 / 1136 656 / 706 162 / 162 Output Total 850 / 1225 475 / 725 450 / 450 Balance 166 / -89 181 / -19 -288 / -288 General: Alert, Cooperative, No apparent distress Lungs: Clear to auscultation, Normal air movement Cardiovascular: Regular rate, Regular Rhythm Abdomen: Soft, Non Tender, Non-Distended Skin: Ulcer/ Wound - foot wrapped Microbiology Past 72 Hours 07/24/20 16:50 Wound - Toe Gram Stain - Final 07/24/20 16:50 Wound - Toe Wound Culture - Final Staphylococcus aureus 07/24/20 16:50 Wound - Toe Anaerobic Culture - Final Anaerobic cocci Laboratory Results 07/30/20 10:44: Activated Clotting Time 153 H 07/30/20 16:39: POC Glucose 161 H 07/30/20 21:26: POC Glucose 187 H 07/31/20 08:01: POC Glucose 176 H Current Medications Acetaminophen (Acetaminophen 325 Mg Tablet) 650 mg PO Q6H PRN PRN PRN Reason: Pain Score 1-10/Temp > 100.7 F Last Admin: 07/30/20 21:43 Dose: 650 mg Documented by: Al Hydroxide/Mg Hydroxide (Mag Hydrox/Al Hydrox/Simeth 30 Ml Udc) 30 ml PO Q6H PRN PRN PRN Reason: Gastric Burning Albuterol Sulfate (Albuterol 2.5 Mg/3 Ml Vial.Neb.) 2.5 mg INHALATION Q2H PRN PRN PRN Reason: Dyspnea, wheezing Last Admin: 07/28/20 05:32 Dose: 2.5 mg Documented by: Aspirin (Aspirin 81 Mg Tab.Chew) 81 mg PO DAILY@0800 [facility] Last Admin: 07/31/20 08:06 Dose: 81 mg Documented by: Clotrimazole (Clotrimazole 1 Tube) 1 applicatio TOPICAL BID [facility]; Protocol Last Admin: 07/31/20 10:05 Dose: 1 applicatio Documented by: Enoxaparin Sodium (Enoxaparin 40 Mg/0.4 Ml Syringe) 40 mg SC DAILY@0600 [facility] Last Admin: 07/31/20 06:29 Dose: 40 mg Documented by: Guaifenesin (Guaifenesin 10 Ml Udc (200mg/10ml)) 20 ml PO Q4H PRN PRN PRN Reason: COUGH Last Admin: 07/28/20 20:01 Dose: 20 ml Documented by: Hydralazine HCl (Hydralazine 20 Mg/Ml Vial) 10 mg IV Q4H PRN PRN PRN Reason: SBP > 160 Ampicillin Sodium/Sulbactam (Sodium 3 gm/ Sodium Chloride) 112 mls @ 150 mls/hr IV Q8 [facility] Last Infusion: 07/31/20 07:40 Dose: Infused Documented by: Insulin Human Lispro (Insulin Lispro 100 Unit/Ml Insuln.Pen) 0 unit SC ACHS [facility]; Protocol Last Admin: 07/31/20 08:04 Dose: 1 u Documented by: Insulin Lispro Protam/Lispro Human (Insulin Human 75/25 Kwickpen) 20 unit SC BREAKFAST [facility] Last Admin: 07/31/20 08:05 Dose: 20 u Documented by: Insulin Lispro Protam/Lispro Human (Insulin Human 75/25 Kwickpen) 10 unit SC DINNER [facility] Last Admin: 07/30/20 16:42 Dose: 10 u Documented by: Losartan Potassium (Losartan Potassium 25 Mg Tablet) 25 mg PO DAILY [facility] Last Admin: 07/31/20 10:05 Dose: 25 mg Documented by: Magnesium Hydroxide (Magnesium Hydroxide 30 Ml Udc) 30 ml PO DAILY PRN PRN PRN Reason: Constipation Melatonin (Melatonin 3 Mg Tablet) 3 mg PO QHS PRN PRN PRN Reason: INSOMNIA Metoprolol Succinate (Metoprolol(Xl)Succ 25 Mg Tablet) 12.5 mg PO DAILY [facility] Last Admin: 07/31/20 10:05 Dose: 12.5 mg Documented by: Montelukast Sodium (Montelukast 10 Mg Tablet) 10 mg PO DAILY [facility] Last Admin: 07/31/20 10:05 Dose: 10 mg Documented by: Nitroglycerin (Nitroglycerin (Inpatient Use) 0.4 Mg Tab.Subl) 0.4 mg SUBLINGUAL Q5M PRN PRN Reason: CARDIAC/CHEST PAIN Ondansetron HCl (Ondansetron 4 Mg/2 Ml Vial) 4 mg IV Q8H PRN PRN PRN Reason: NAUSEA/VOMITING Last Admin: 07/27/20 20:54 Dose: 4 mg Documented by: Oxycodone HCl (Oxycodone 5 Mg Tablet) 5 mg PO Q4H PRN PRN PRN Reason: Pain Score 4-5 Pantoprazole Sodium (Pantoprazole Sodium 40 Mg Tablet) 40 mg PO DAILY [facility] Last Admin: 07/31/20 10:06 Dose: 40 mg Documented by: Prochlorperazine Edisylate (Prochlorperazine 10 Mg/2 Ml Vial) 5 mg IV Q4H PRN PRN PRN Reason: Breakthrough Nausea/Vomiting Psyllium Hydrophilic Mucilloid (Psyllium 1 Packet) 1 packet PO DAILY PRN PRN PRN Reason: Constipation Senna/Docusate Sodium (Senna/Docusate Sodium 1 Tablet) 2 tablet PO BID PRN PRN PRN Reason: Constipation Sodium Chloride (0.9% Saline Lock 10 Ml Syringe) 10 - 40 ml IV UD PRN PRN Reason: SALINE FLUSH Last Admin: 07/31/20 06:27 Dose: 10 ml Documented by: Throat Lozenges (Benzocaine/Menthol 1 Lozenge) 1 lozenge MUCOUS MEM Q2H PRN PRN PRN Reason: SORE THROAT Last Admin: 07/29/20 06:33 Dose: 1 lozenge Documented by: Medical Necessity - Tobacco Use Smoking Status: Never smoker Tobacco Use: Non-smoker Route of nutrition/ use of supplements: [] Nutritional Intake: [] IV Site: [] Rosenberg Catheter: [] - Assessment/Plan Antibiotics: [] Assessment/Plan: [] Active and Suspected Problems (Last Reviewed 05/16/20 @ 13:29 by Seema Yanes PA, PA) Elevation of cardiac enzymes (Acute) Near syncope (Acute) 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 Carbajal neg so far. Poor bloodflow, angio done and no intervention able to be performed. Cont unasyn. Cx with MSSA and anaerobes. Has picc, wrote for 6 weeks ertapenem once daily to try to make it easier in terms of dosing. Stop date 09/04/20, weekly bmp, cbc, LFT, and esr. ID followup in 2-3 weeks. He will need dose of ertapenem 1gm x1 prior to discharge home or to ECF. Will follow
[2020-07-31 11:20] LABS: Bedside Glucose 191 mg/dL (70-110)
--- NOTE | 2020-07-31 11:29 | CASEMGMT ---
MIRTHA called patient's son, Emanuel. MIRTHA introduced self and role at [facility]. Emanuel said he spoke with patient yesterday as did his sister and patient seemed to be in agreement with TCU. He said he would like to see him before he goes to TCU. MIRTHA told him SW or the RN will call and let him know when he will be going to TCU. Stephie CASTILLO
--- NOTE | 2020-07-31 11:35 | PCM.EXTCARCO ---
- Diet 07/30/20 13:27 Carb [Diet: Carbohydrate Controlled] Type of Dietary Supplement:: Magic Cup Dessert Is pt able to select menu?: Yes Diet Comments: Christian w/ breakfast and dinner; MC at dinner only - Routine Orders/Code Status Enema Type: Fleetz Enema Frequency: Daily PRN Suppository Type: Dulcolax 10mg Suppository Frequency: Daily PRN O2 Liters per Minute: 2 O2 Frequency: PRN Keep PO Greater than or Equal to (%): 90 Routine Lab Work: - - Weekly BMP, CBC, LFT, ESR Code Status: Full Code - Wound(s) R great toe Wound Type: Neuropathic/Diabetic Foot Ulcer Dressing Change: AntiMicrobial (Aquacel AG, etc) - Suggestions for Active Care Change Position every (hours): 2 Times a day to sit in chair: 3 - Therapies Physical Therapy: Eval and Treat Occupational Therapy: Eval and Treat - Problem/Diagnosis (1) Elevation of cardiac enzymes Status: Acute Comment: Normal stress test (2) CAD (coronary artery disease) Status: Chronic (3) 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 Status: Acute (4) History of CVA (cerebrovascular accident) Status: Chronic (5) Carotid artery stenosis Status: Chronic Comment: R CEA 2018 (6) Essential (primary) hypertension Status: Chronic (7) 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 (8) Peripheral vascular occlusive disease Status: Chronic Comment: RLE - Allergies/Procedures Done in Hospital Allergies/Adverse Reactions: Allergies Rtelopz-Lyi-Uks Reductase Inhibitor Adverse Reaction (Severe, Verified 07/22/20 12:09) mylagias lisinopril Adverse Reaction (Verified 07/22/20 12:09) cough Procedures: Nuclear Stress Test, - - , Right lower extremity arteriogram right great toe bone biopsy - Type of Care/Length of Stay Estimated LOS: Convalescent Care Less Than 30 days Type of Care Needed: Skilled Rehab Potential: Fair Prognosis: Fair - Additional Orders/Day of Discharge Additional Orders: Daily dressing changes right great toe with Aquacel silver covered by dry sterile dressing. Nonweightbearing to right forefoot. Day of Discharge: 07/31/20 - Dietary and Speech Recommendations Dietitian Recommendations/Changes: Resume CHO controlled diet post-procedure. Continue magic cup w/ dinner and Christian BID for wound healing. - Follow Up Care Primary Care Physician: Karen Lowe MD [Primary Care Provider] - Please follow up with your Primary Care Physician in: 1 Week Please Follow Up With: Clarita Carbajal DPM When: Follow-up at wound center within 1 week of discharge Please Follow Up With: Calvin Livingston MD When: Recommend follow up with neurology at discharge
--- NOTE | 2020-07-31 11:42 | DS.PCM_ITS ---
<Vangie Friedman [employer] - Last Filed: 07/31/20 11:48> Discharge Date and Diagnosis - Problem List Patient Problems: Active and Suspected Problems (Last Updated 07/30/20 @ 13:[address] 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 Fly Taylor MD) 1. Right great toe cellulitis with osteomyelitis 2. PAD 3. Debility, failure to thrive 4. Type 2 diabetes mellitus 5. CAD with history of CABG/ischemic cardiomyopathy 6. Carotid artery disease 7. Hypertension 8. Hyperlipidemia 9. GERD 10. Abnormal troponin-patient underwent stress test 07/23/2020 which showed no evidence of ischemia. 11. Suspected neurodegenerative disorder - Secondary Discharge Diagnosis Chronic Problems: Chronic Problems (Last Updated 07/30/20 @ 13:[address] Fly Taylor MD) CAD (coronary artery disease) (Chronic) Pleural effusion on left (Chronic) loculated per CT Chest 07/2019 thoracentesis 07/2019 Mass of right lung (Chronic) bronchoscopy 07/2019 Old inferior wall myocardial infarction (Chronic) Atherosclerotic heart disease of council coronary artery without angina pectoris (Chronic) History of non-ST elevation myocardial infarction (NSTEMI) (Chronic 07/21/17) Ischemic cardiomyopathy (Chronic) H/O coronary artery bypass surgery (Chronic 08/04/17) History of CVA (cerebrovascular accident) (Chronic 07/2017) Right bundle branch block (RBBB) (Chronic) Carotid artery stenosis (Chronic) R CEA 2017 Essential (primary) hypertension (Chronic) Claudication of both lower extremities (Chronic) Peripheral vascular occlusive disease (Chronic) RLE Hospital Course and Treatment Imaging Results: Diagnostic Data Lumbar Spine X-Ray 07/22/20 12:39 IMPRESSION: 1. Degenerative changes of the spine, as detailed above. 2. No demonstrated acute fracture. Electronically Signed: Esteban Zaidi MD at 13:26 EST Tel , Service support , Chest CTA 07/22/20 14:16 IMPRESSION: Normal CTA chest examination, without a demonstrated pulmonary embolism or arterial dissection. Stable prominent loculated left pleural effusion with a thick wall causing marked compressive atelectasis of the left lung. Electronically Signed: Juancarlos Lynch MD at 15:35 EST , Service support , Foot X-Ray 07/24/20 15:29 IMPRESSION: Normal x-ray examination of the foot. Electronically Signed: Jacques Killian MD at 20:35 EST , Service support , Lower Extremity MRI 07/24/20 16:58 IMPRESSION: Marrow edema is seen within the distal phalanx of the great toe. There is an overlying soft tissue defect and bandage. Question linear area of low density seen at the base of the tuft. I cannot exclude a displaced fracture. These findings are suspicious for osteomyelitis. Would consider a CT scan follow-up to assess for fracture. Without contrast it is difficult to assess for an abscess There is subcutaneous edema overlying the lateral dorsal aspect of the foot. at 2248 Reported and signed by: Zina Carrasco DO Electronically Signed: Zina Carrasco DO at 22:47 EST Tel , Service support , Orbit X-Ray 07/24/20 18:30 IMPRESSION: No demonstrated metallic orbital foreign body. The patient is cleared for an MRI examination. Electronically Signed: Jacques Killian MD at 19:04 EST , Service support , Chest X-Ray 07/30/20 20:20 IMPRESSION: Bilateral pleural effusions and bilateral patchy infiltrates, left more than right. Electronically Signed: Darío Noe DO at 22:34 EST Tel [phone], Service support , Consultations 07/24/20 09:11 Consult: Onc/Wound/protective services officer Routine Comment: Dr. Dennis- Cardiology Dr. Carbajal- Podiatry Dr. Garcia- ID Dr. Suarez- vascular surgery Operations: None Procedures: Stress test, - - Right great toe bone biopsy, right lower extremity arteriogram Summary of Care Provided: The patient is a 79 year old M admitted 07/22/2020 due to weakness, debility with recent fall. 1. Right great toe cellulitis with osteomyelitis-ID and podiatry following. Cultures growing MSSA. Bone biopsy 07/25/2020 without evidence of acute osteomyelitis. Continue dressing changes as ordered. Nonweightbearing right hallux. Underwent right lower extremity arteriogram 07/30/2020 which showed occlusion of the right posterior tibial and peroneal and anterior tibial arteries with extensive collateralization. No intervention indicated. PICC line in place. Plan for 6 weeks of ertapenem per ID recommendations. Follow-up with podiatry within 1 week of discharge from TCU. 2. PAD-arterial studies show moderately severe right lower extremity arterial o cclusive disease. Vascular surgery consulted during admission. Right lower extremity arteriogram as noted above. 3. Debility, failure to thrive-history of falls. TCU at discharge, PT/OT. 4. Type 2 diabetes [id number] with sliding scale insulin. Hemoglobin A1c 5.9%. 5. CAD with history of CABG/ischemic cardiomyopathy-on aspirin. Allergy to statin. 6. Carotid artery disease-history of right carotid endarterectomy. On aspirin. Allergy to statin as noted above. 7. Hypertension-stable, continue losartan regimen. 8. Hyperlipidemia- allergy to statin. 9. GERD-continue PPI. 10. Abnormal troponin-patient underwent stress test 07/23/2020 which showed no evidence of ischemia. EF 25%. Outpatient follow-up with cardiology. 11. 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 Worsening weakness and falls. Recommend outpatient neuro follow-up. General: Alert, Oriented x3, Cooperative HEENT: Atraumatic, PERRLA, EOMI, Normocephalic Neck: Supple, No JVD, Negative Carotid Bruits Lungs: Clear to auscultation, Normal air movement Cardiovascular: Regular rate, No murmurs Abdomen: Bowel Sounds Present, Soft, Non Tender, Non-Distended Extremities: No clubbing, No cyanosis, No edema, Capillary Refill Less than 3 Seconds Skin: No rashes, No breakdown, - - Right foot dressing intact Musculoskeletal: No Tenderness to Palpation of Joints or Extremities Neurological: Cranial nerves II-XII grossly intact, Neuro grossly intact Psych/Mental Status: Normal Affect, Appropriate Patient seen and examined prior to discharge. Physical assessment as noted above. Patient is stable for discharge with follow up recommendations as noted above. This patient was seen by AUGUSTA Short under the supervision of Dr. Taylor. Patient Problems: Active and Suspected Problems (Last Updated 07/30/20 @ 13:[address] 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 (Acute) 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 without evidence of necrosis (Acute) - Physical Exam Vitals/I&O's: Vital Signs Temp Pulse Resp BP Pulse Ox 98.1 F 69 14 136/69 H 96 07/31/20 10:00 07/31/20 10:05 07/31/20 10:00 07/31/20 10:00 07/31/20 10:00 Oxygen Flow Rate (L/min) 2 Oxygen Delivery Method Room Air Weight: 196 lb 6.91 oz Body Mass Index (BMI) 27.3 Intake and Output for Last 24 Hours 07/29/20 07/30/20 07/31/20 23:59 23:59 23:59 Intake Total 1016 / 1136 656 / 706 162 / 162 Output Total 850 / 1225 475 / 725 450 / 450 Balance 166 / -89 181 / -19 -288 / -288 Microbiology Past 72 Hours 07/24/20 16:50 Wound - Toe Gram Stain - Final 07/24/20 16:50 Wound - Toe Wound Culture - Final Staphylococcus aureus 07/24/20 16:50 Wound - Toe Anaerobic Culture - Final Anaerobic cocci Laboratory Results 07/30/20 16:39: POC Glucose 161 H 07/30/20 21:26: POC Glucose 187 H 07/31/20 08:01: POC Glucose 176 H 07/31/20 11:13: POC Glucose 191 H Current Medications Acetaminophen (Acetaminophen 325 Mg Tablet) 650 mg PO Q6H PRN PRN PRN Reason: Pain Score 1-10/Temp > 100.7 F Last Admin: 07/30/20 21:43 Dose: 650 mg Documented by: Al Hydroxide/Mg Hydroxide (Mag Hydrox/Al Hydrox/Simeth 30 Ml Udc) 30 ml PO Q6H PRN PRN PRN Reason: Gastric Burning Albuterol Sulfate (Albuterol 2.5 Mg/3 Ml Vial.Neb.) 2.5 mg INHALATION Q2H PRN PRN PRN Reason: Dyspnea, wheezing Last Admin: 07/28/20 05:32 Dose: 2.5 mg Documented by: Aspirin (Aspirin 81 Mg Tab.Chew) 81 mg PO DAILY@0800 [facility] Last Admin: 07/31/20 08:06 Dose: 81 mg Documented by: Clotrimazole (Clotrimazole 1 Tube) 1 applicatio TOPICAL BID [facility]; Protocol Last Admin: 07/31/20 10:05 Dose: 1 applicatio Documented by: Enoxaparin Sodium (Enoxaparin 40 Mg/0.4 Ml Syringe) 40 mg SC DAILY@0600 [facility] Last Admin: 07/31/20 06:29 Dose: 40 mg Documented by: Guaifenesin (Guaifenesin 10 Ml Udc (200mg/10ml)) 20 ml PO Q4H PRN PRN PRN Reason: COUGH Last Admin: 07/28/20 20:01 Dose: 20 ml Documented by: Hydralazine HCl (Hydralazine 20 Mg/Ml Vial) 10 mg IV Q4H PRN PRN PRN Reason: SBP > 160 Ampicillin Sodium/Sulbactam (Sodium 3 gm/ Sodium Chloride) 112 mls @ 150 mls/hr IV Q8 [facility] Last Infusion: 07/31/20 07:40 Dose: Infused Documented by: Insulin Human Lispro (Insulin Lispro 100 Unit/Ml Insuln.Pen) 0 unit SC [facility]; Protocol Last Admin: 07/31/20 11:14 Dose: 2 u Documented by: Insulin Lispro Protam/Lispro Human (Insulin Human 75/25 [place]) 20 unit SC BREAKFAST [facility] Last Admin: 07/31/20 08:05 Dose: 20 u Documented by: Insulin Lispro Protam/Lispro Human (Insulin Human 75/25 [place]) 10 unit SC DINNER [facility] Last Admin: 07/30/20 16:42 Dose: 10 u Documented by: Losartan Potassium (Losartan Potassium 25 Mg Tablet) 25 mg PO DAILY [facility] Last Admin: 07/31/20 10:05 Dose: 25 mg Documented by: Magnesium Hydroxide (Magnesium Hydroxide 30 Ml Udc) 30 ml PO DAILY PRN PRN PRN Reason: Constipation Melatonin (Melatonin 3 Mg Tablet) 3 mg PO QHS PRN PRN PRN Reason: INSOMNIA Metoprolol Succinate (Metoprolol(Xl)Succ 25 Mg Tablet) 12.5 mg PO DAILY [facility] Last Admin: 07/31/20 10:05 Dose: 12.5 mg Documented by: Montelukast Sodium (Montelukast 10 Mg Tablet) 10 mg PO DAILY [facility] Last Admin: 07/31/20 10:05 Dose: 10 mg Documented by: Nitroglycerin (Nitroglycerin (Inpatient Use) 0.4 Mg Tab.Subl) 0.4 mg SUBLINGUAL Q5M PRN PRN Reason: CARDIAC/CHEST PAIN Ondansetron HCl (Ondansetron 4 Mg/2 Ml Vial) 4 mg IV Q8H PRN PRN PRN Reason: NAUSEA/VOMITING Last Admin: 07/27/20 20:54 Dose: 4 mg Documented by: Oxycodone HCl (Oxycodone 5 Mg Tablet) 5 mg PO Q4H PRN PRN PRN Reason: Pain Score 4-5 Pantoprazole Sodium (Pantoprazole Sodium 40 Mg Tablet) 40 mg PO DAILY [facility] Last Admin: 07/31/20 10:06 Dose: 40 mg Documented by: Prochlorperazine Edisylate (Prochlorperazine 10 Mg/2 Ml Vial) 5 mg IV Q4H PRN PRN PRN Reason: Breakthrough Nausea/Vomiting Psyllium Hydrophilic Mucilloid (Psyllium 1 Packet) 1 packet PO DAILY PRN PRN PRN Reason: Constipation Senna/Docusate Sodium (Senna/Docusate Sodium 1 Tablet) 2 tablet PO BID PRN PRN PRN Reason: Constipation Sodium Chloride (0.9% Saline Lock 10 Ml Syringe) 10 - 40 ml IV UD PRN PRN Reason: SALINE FLUSH Last Admin: 07/31/20 06:27 Dose: 10 ml Documented by: Throat Lozenges (Benzocaine/Menthol 1 Lozenge) 1 lozenge MUCOUS MEM Q2H PRN PRN PRN Reason: SORE THROAT Last Admin: 07/29/20 06:33 Dose: 1 lozenge Documented by: Home Medications: Medications to take at Discharge insulin human U-100 NPH-regulr 70-30 mix 100 unit/mL subcutaneous susp 12 unit SC .COMPLEX 11/18/17 ascorbic acid (vitamin C) 1,000 mg tablet 1 g PO DAILY tab 11/15/19 aspirin 81 mg tablet,delayed release 81 mg PO DAILY 11/15/19 chromium picolinate 1,000 mcg tablet 1,000 mcg PO DAILY 11/15/19 coenzyme Q10 200 mg capsule 200 mg PO DAILY 11/15/19 dandelion 500 mg capsule 500 mg PO DAILY cap 11/15/19 grape seed extract 50 mg capsule 50 mg PO DAILY cap 11/15/19 pantoprazole 40 mg tablet,delayed release 40 mg PO DAILY tab 11/15/19 losartan 25 mg tablet 25 mg PO DAILY #30 tab 05/16/20 montelukast 10 mg tablet 10 mg PO DAILY 05/16/20 Ertapenem Sodium [Ertapenem] 1 gm IV DAILY 35 Days #35 vial 07/30/20 Metoprolol(XL)Succ [Toprol Xl (Beta Nikolay)] 12.5 mg PO DAILY tab 07/31/20 Following Prescriptions Were Given to Patient: Ertapenem Sodium [Ertapenem] 1 gm IV DAILY 35 Days #35 vial Prescription Printed Primary Care Physician: Karen Lowe MD [Primary Care Provider] - Please follow up with your Primary Care Physician in: 1 Week Please Follow Up With: Clarita Carbajal DPM When: Follow-up at wound center within 1 week of discharge Please Follow Up With: Calvin Livingston MD When: Recommend follow up with neurology at discharge Disposition: [facility] facility Minutes spent on discharge:: 35 Patient Condition:: Stable Medical Necessity - Tobacco Use Smoking Status: Never smoker Tobacco Use: Non-smoker Meaningful Use Info Meaningful Use Diagnoses (Choose all that apply): None applicable <Fly Taylor E - Last Filed: 07/31/20 14:20> Discharge Date and Diagnosis - Primary Discharge Diagnosis Acute Problems: Active Problems (Last Updated 07/30/20 @ 13:[address] 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 Fly Taylor MD) CAD (coronary artery disease) (Chronic) Pleural effusion on left (Chronic) loculated per CT Chest 07/2019 thoracentesis 07/2019 Mass of right lung (Chronic) bronchoscopy 07/2019 Old inferior wall myocardial infarction (Chronic) Atherosclerotic heart disease of [place] coronary artery without angina pectoris (Chronic) History of non-ST elevation myocardial infarction (NSTEMI) (Chronic 07/21/17) Ischemic cardiomyopathy (Chronic) H/O coronary artery bypass surgery (Chronic 08/04/17) History of CVA (cerebrovascular accident) (Chronic 07/2017) Right bundle branch block (RBBB) (Chronic) Carotid artery stenosis (Chronic) R CEA 2018 Essential (primary) hypertension (Chronic) Claudication of both lower extremities (Chronic) Peripheral vascular occlusive disease (Chronic) RLE Hospital Course and Treatment Consultations 07/24/20 09:11 Consult: Onc/Wound/protective services officer Routine Comment: Summary of Care Provided: Hospitalist note: Discharge summary above reviewed and I concur with above discharge and treatment plan. Patient presented to the emergency room on July 22, 2020 because of weakness, debility and recent fall. He was found to have MSSA right great toe cellulitis with osteomyelitis. He had prolonged hospital stay due to multiple medical problems. He was treated with IV vancomycin and Unasyn for the right big toe cellulitis and osteomyelitis. Wound culture revealed MSSA. Bone biopsy done and revealed no evidence of osteomyelitis although MRI of right foot revealed possible osteomyelitis. Infectious disease consulted and patient was continued on IV antibiotics. He was found to have abnormal cardiac enzymes. His EKG revealed no acute ischemic changes. Patient had nuclear stress test during this hospital stay that showed no evidence of stress-induced myocardial ischemia. 2D echocardiogram revealed ejection fraction of 25 to 30% and stage I diastolic function. There was no evidence of acute CHF. Patient had severe peripheral vascular disease. Dr. Suarez was consulted and he underwent angiography that revealed extensive chronic arterial occlusive disease and no interventions performed. Patient was kept on aspirin. Patient lives alone at home and she has been having issues with multiple falls. Patient was evaluated by PT OT and recommended placement to residential facility. Initially, patient refused to go to residential facility but after discussion with him and his family, he agreed to go to TCU. Patient discharged to TCU in a stable medical condition, discharged on ertapenem IV according to infectious disease recommendation and stop date is September 04, 2020, continued on his previous home medications including losartan, metoprolol and aspirin, plan to follow-up with podiatry medicine in 1 week, follow-up with neurology which will be scheduled later, recommended follow-up with PCP in 1 week. General: Alert, Oriented x3, Cooperative HEENT: Atraumatic, PERRLA, EOMI, Normocephalic Neck: Supple, No JVD, Negative Carotid Bruits Lungs: Clear to auscultation, Normal air movement Cardiovascular: Regular rate, No murmurs Abdomen: Bowel Sounds Present, Soft, Non Tender, Non-Distended Extremities: No clubbing, No cyanosis, No edema, Capillary Refill Less than 3 Seconds Skin: No rashes, No breakdown, - - Right foot dressing intact Musculoskeletal: No Tenderness to Palpation of Joints or Extremities Neurological: Cranial nerves II-XII grossly intact, Neuro grossly intact Psych/Mental Status: Normal Affect, Appropriate. This note was generated with [employer] dictation software. It may contain incorrect words, spelling, and punctuation that were not noted in checking the note before signing. - Physical Exam Vitals/I&O's: Vital Signs Temp Pulse Resp BP Pulse Ox 98.1 F 69 14 136/69 H 96 07/31/20 10:00 07/31/20 10:05 07/31/20 10:00 07/31/20 10:07/31/20 10:00 Oxygen Flow Rate (L/min) 2 Oxygen Delivery Method Room Air Weight: 196 lb 6.91 oz Body Mass Index (BMI) 27.3 Intake and Output for Last 24 Hours 07/29/20 07/30/20 07/31/20 23:59 23:59 23:59 Intake Total 1016 / 1136 656 / 706 522 / 522 Output Total 850 / 1225 475 / 725 450 / 450 Balance 166 / -89 181 / -19 72 / 72 Microbiology Past 72 Hours 07/24/20 16:50 Wound - Toe Gram Stain - Final 07/24/20 16:50 Wound - Toe Wound Culture - Final Staphylococcus aureus 07/24/20 16:50 Wound - Toe Anaerobic Culture - Final Anaerobic cocci Laboratory Results 07/30/20 16:39: POC Glucose 161 H 07/30/20 21:26: POC Glucose 187 H 07/31/20 08:01: POC Glucose 176 H 07/31/20 11:13: POC Glucose 191 H Current Medications Acetaminophen (Acetaminophen 325 Mg Tablet) 650 mg PO Q6H PRN PRN PRN Reason: Pain Score 1-10/Temp > 100.7 F Last Admin: 07/30/20 21:43 Dose: 650 mg Documented by: Al Hydroxide/Mg Hydroxide (Mag Hydrox/Al Hydrox/Simeth 30 Ml Udc) 30 ml PO Q6H PRN PRN PRN Reason: Gastric Burning Albuterol Sulfate (Albuterol 2.5 Mg/3 Ml Vial.Neb.) 2.5 mg INHALATION Q2H PRN PRN PRN Reason: Dyspnea, wheezing Last Admin: 07/28/20 05:32 Dose: 2.5 mg Documented by: Aspirin (Aspirin 81 Mg Tab.Chew) 81 mg PO DAILY@0800 [facility] Last Admin: 07/31/20 08:06 Dose: 81 mg Documented by: Clotrimazole (Clotrimazole 1 Tube) 1 applicatio TOPICAL BID [facility]; Protocol Last Admin: 07/31/20 10:05 Dose: 1 applicatio Documented by: Enoxaparin Sodium (Enoxaparin 40 Mg/0.4 Ml Syringe) 40 mg SC DAILY@0600 [facility] Last Admin: 07/31/20 06:29 Dose: 40 mg Documented by: Guaifenesin (Guaifenesin 10 Ml Udc (200mg/10ml)) 20 ml PO Q4H PRN PRN PRN Reason: COUGH Last Admin: 07/28/20 20:01 Dose: 20 ml Documented by: Hydralazine HCl (Hydralazine 20 Mg/Ml Vial) 10 mg IV Q4H PRN PRN PRN Reason: SBP > 160 Ampicillin Sodium/Sulbactam (Sodium 3 gm/ Sodium Chloride) 112 mls @ 150 mls/hr IV Q8 [facility] Last Admin: 07/31/20 13:01 Dose: 150 mls/hr Documented by: Insulin Human Lispro (Insulin Lispro 100 Unit/Ml Insuln.Pen) 0 unit SC ACHS [facility]; Protocol Last Admin: 07/31/20 11:14 Dose: 2 u Documented by: Insulin Lispro Protam/Lispro Human (Insulin Human 75/25 Kwickpen) 20 unit SC BREAKFAST [facility] Last Admin: 07/31/20 08:05 Dose: 20 u Documented by: Insulin Lispro Protam/Lispro Human (Insulin Human 75/25 [place]wickpen) 10 unit SC DINNER [facility] Last Admin: 07/30/20 16:42 Dose: 10 u Documented by: Losartan Potassium (Losartan Potassium 25 Mg Tablet) 25 mg PO DAILY [facility] Last Admin: 07/31/20 10:05 Dose: 25 mg Documented by: Magnesium Hydroxide (Magnesium Hydroxide 30 Ml Udc) 30 ml PO DAILY PRN PRN PRN Reason: Constipation Melatonin (Melatonin 3 Mg Tablet) 3 mg PO QHS PRN PRN PRN Reason: INSOMNIA Metoprolol Succinate (Metoprolol(Xl)Succ 25 Mg Tablet) 12.5 mg PO DAILY [facility] Last Admin: 07/31/20 10:05 Dose: 12.5 mg Documented by: Montelukast Sodium (Montelukast 10 Mg Tablet) 10 mg PO DAILY [facility] Last Admin: 07/31/20 10:05 Dose: 10 mg Documented by: Nitroglycerin (Nitroglycerin (Inpatient Use) 0.4 Mg Tab.Subl) 0.4 mg SUBLINGUAL Q5M PRN PRN Reason: CARDIAC/CHEST PAIN Ondansetron HCl (Ondansetron 4 Mg/2 Ml Vial) 4 mg IV Q8H PRN PRN PRN Reason: NAUSEA/VOMITING Last Admin: 07/27/20 20:54 Dose: 4 mg Documented by: Oxycodone HCl (Oxycodone 5 Mg Tablet) 5 mg PO Q4H PRN PRN PRN Reason: Pain Score 4-5 Pantoprazole Sodium (Pantoprazole Sodium 40 Mg Tablet) 40 mg PO DAILY [facility] Last Admin: 07/31/20 10:06 Dose: 40 mg Documented by: Prochlorperazine Edisylate (Prochlorperazine 10 Mg/2 Ml Vial) 5 mg IV Q4H PRN PRN PRN Reason: Breakthrough Nausea/Vomiting Psyllium Hydrophilic Mucilloid (Psyllium 1 Packet) 1 packet PO DAILY PRN PRN PRN Reason: Constipation Senna/Docusate Sodium (Senna/Docusate Sodium 1 Tablet) 2 tablet PO BID PRN PRN PRN Reason: Constipation Sodium Chloride (0.9% Saline Lock 10 Ml Syringe) 10 - 40 ml IV UD PRN PRN Reason: SALINE FLUSH Last Admin: 07/31/20 13:01 Dose: 10 ml Documented by: Throat Lozenges (Benzocaine/Menthol 1 Lozenge) 1 lozenge MUCOUS MEM Q2H PRN PRN PRN Reason: SORE THROAT Last Admin: 07/29/20 06:33 Dose: 1 lozenge Documented by: Disposition: [facility] facility Minutes spent on discharge:: 32 Patient Condition:: Stable Meaningful Use Info Meaningful Use Diagnoses (Choose all that apply): None applicable Inpatient E&M: 04114 [facility]
--- NOTE | 2020-07-31 13:38 | CASEMGMT ---
Patient's discharge is in the computer. SW spoke with RN and she said patient's son is in patient's room already. She will call report and see when they are ready for patient. Plan: [facility] under skilled level of care. Stephie BERUMEN MSW
--- NOTE | 2020-07-31 13:47 | NURSING ---
Report called to [facility]. Pt can come over whenever and is going to room 18.
--- NOTE | 2020-08-01 11:52 | PHA.DC.MR ---
Pharmacy Service has performed discharge medication reconciliation for this patient. Med Rec performed 07/31/20 @ 1400 The patient's discharge medication list was reviewed for discrepancies and discrepancies were resolved. Home Medications insulin human U-100 NPH-regulr 70-30 mix 100 unit/mL subcutaneous susp 12 unit SC .COMPLEX 11/18/17 ascorbic acid (vitamin C) 1,000 mg tablet 1 g PO DAILY tab 11/15/19 aspirin 81 mg tablet,delayed release 81 mg PO DAILY 11/15/19 chromium picolinate 1,000 mcg tablet 1,000 mcg PO DAILY 11/15/19 coenzyme Q10 200 mg capsule 200 mg PO DAILY 11/15/19 dandelion 500 mg capsule 500 mg PO DAILY cap 11/15/19 grape seed extract 50 mg capsule 50 mg PO DAILY cap 11/15/19 pantoprazole 40 mg tablet,delayed release 40 mg PO DAILY tab 11/15/19 montelukast 10 mg tablet 10 mg PO DAILY 05/16/20 Ertapenem Sodium [Ertapenem] 1 gm IV DAILY 07/31/20 Losartan Potassium [Cozaar] 25 mg PO DAILY 07/31/20 Metoprolol(XL)Succ [Toprol Xl (Beta Nikolay)] 12.5 mg PO DAILY 07/31/20
== END 2020-07-31 14:00 | disposition skilled nursing facility (03) | DRG 629 ==
LOC: ED 13:17 → PCU 18:26
PROVIDERS: Internal Medicine; Internal Medicine Infectious Disease; Physician Assistant; Podiatrist Foot & Ankle Surgery; Admitting Provider Family Medicine; Emergency Provider Student in an Organized Health Care Education/Training Program; PCP Internal Medicine; Visit Provider Hospitalist
DX: E11.69 Type 2 diabetes mellitus with other specified complication (principal); M86.9 Osteomyelitis, unspecified; E11.52 Type 2 diabetes mellitus with diabetic peripheral angiopathy with gangrene; I50.22 Chronic systolic (congestive) heart failure; J90 Pleural effusion, not elsewhere classified; J98.11 Atelectasis; L03.031 Cellulitis of right toe; B95.61 Methicillin susceptible Staphylococcus aureus infection as the cause of diseases classified elsewhere; E11.40 Type 2 diabetes mellitus with diabetic neuropathy, unspecified; R53.83 Other fatigue; R62.7 Adult failure to thrive; E78.5 Hyperlipidemia, unspecified; K21.9 Gastro-esophageal reflux disease without esophagitis; I25.10 Atherosclerotic heart disease of native coronary artery without angina pectoris; I25.2 Old myocardial infarction; I25.5 Ischemic cardiomyopathy; I11.0 Hypertensive heart disease with heart failure; I65.21 Occlusion and stenosis of right carotid artery; I45.10 Unspecified right bundle-branch block; B35.1 Tinea unguium; B35.3 Tinea pedis; R29.6 Repeated falls; L84 Corns and callosities; E11.621 Type 2 diabetes mellitus with foot ulcer; L97.514 Non-pressure chronic ulcer of other part of right foot with necrosis of bone; G20 Parkinson's disease; L60.2 Onychogryphosis; E83.42 Hypomagnesemia; R91.8 Other nonspecific abnormal finding of lung field; Z95.1 Presence of aortocoronary bypass graft; Z88.8 Allergy status to other drugs, medicaments and biological substances; Z79.4 Long term (current) use of insulin; Z79.82 Long term (current) use of aspirin; Z79.899 Other long term (current) drug therapy; Z86.73 Personal history of transient ischemic attack (TIA), and cerebral infarction without residual deficits
CPT/HCPCS: 36200; 36245; 36415; 36569; 70030; 71045; 71046; 71275; 72100; 73630; 73718; 75625; 75710; 76937; 78452; 80048; 80053; 80061; 80202; 81001; 82962; 83036; 83605; 83735; 84100; 84145; 84484; 85025; 85027; 85347; 85379; 85652; 86140; 87040; 87070; 87075; 87077; 87176; 87186; 87205; 87426; 87633; 88305; 88307; 88311; 93005; 93017; 93306; 93923; 94640; 97110; 97116; 97162; 97166; 97530; 97535; 97802; 97803; 99152; 99153; 99251; 99285; A9500; C1760; J7030; J7040; J7050; P9612; Q9957; Q9967; A4216; C1769; C1887; C8929; G0463; J0295; J2405; J2785

== ENCOUNTER 2020-07-31 14:20 | Inpatient (IN) | payer MEDICARE, OTHER, SELFPAY ==
[2020-07-29 22:32] VITALS: BMI 27.3
[2020-07-31 14:40] VITALS: BP 154/85; PULSE 76; RESP 20; TEMP 36.8; O2SAT 94
[2020-07-31 14:41] VITALS: BP 154/85; PULSE 76; RESP 20; TEMP 36.8; O2SAT 94
[2020-07-31 15:55] VITALS: BMI 27.2
[2020-07-31 16:05] VITALS: BMI 27.3
[2020-07-31 16:12] VITALS: PULSE 76; RESP 20; O2SAT 94
[2020-07-31 16:51] LABS: Bedside Glucose 163 mg/dL (70-110)
[2020-07-31] MEDS: Insulin Human 75/25 Kwickpen 10 UNIT SC (18:17)
--- NOTE | 2020-07-31 20:34 | PCM.HP.STD ---
Problem List (1) Debility Status: Acute (2) Multiple falls Status: Acute (3) Elevated troponin Status: Acute (4) Chronic systolic congestive heart failure Status: Chronic (5) Osteomyelitis of great toe of right foot Status: Acute (6) Peripheral arterial occlusive disease Status: Chronic (7) Hypertension Status: Chronic (8) Stroke Status: Chronic (9) Hyperlipidemia Status: Chronic (10) Near syncope Status: Acute (11) CAD (coronary artery disease) Status: Chronic Qualifiers: (12) Carotid artery stenosis Status: Chronic Qualifiers: Comment: R CEA 2018 (13) Diabetes mellitus Status: Chronic History of Present Illness Date of Admission: 07/31/20 Chief Complaint: Here for rehabilitation, strengthening, intravenous antibiotics, prior to discharge home alone. 07/22/20 The patient is a 79 year old Male with below past medical history presented to [facility] Emergency Department with generalized illness. 07/22/20 EKG sinus rhythm with first degree AV block, premature supraventricular complexes, occasional premature ventricular contractions, left axis deviation, right bundle branch block, left ventricular hypertrophy with repolarization abnormality, possible lateral infarct, age undetermined, inferior infarct, age undetermined. 07/22/20 CTA chest negative pulmonay embolism, stable loculated left pleural effusion with compressive atelectasis of left lung. 07/22/20 X-ray lumbar spine showed degenerative changes. 07/23/20 Pharmacologic stress test negative significant ischemia, shows prior inferior, inferolateral infarct, EF 25%. Generalized weakness, fall, sliding off mattress. Near Syncope. Elevated troponin. 07/22/20 Admit to Hospital. 07/23/20 Echo EF 25-30%. Stage 1 diastolic dysfunction. Hypokinesis of inferior wall, lateral wall, septum. 07/24/20 Arterial study shows severe bilateral lower extremity occlusive disease. 07/24/20 MRI right foot shows osteomyelitis great toe. MSSA right great toe cellulitis, osteomyelitis. Treated with IV Vancomycin, IV Unasyn. Angiogram of legs done, no intervention performed. PT/OT recommended SNF due to multiple falls, living alone. Infectious Disease recommended IV Ertapenem thru 09/04/2020 for right great toe osteomyelitis. 07/31/20 Admit to TCU with debility, here for rehabilitation, strengthening intravenous antibiotics, prior to discharge home alone. Past Medical History Past Medical History (Chronic Problems): Chronic Problems (Last Updated 07/30/20 @ 13:[address] Fly Taylor MD) Chronic systolic congestive heart failure (Chronic) Peripheral arterial occlusive disease (Chronic) Hypertension (Chronic) Stroke (Chronic) Hyperlipidemia (Chronic) Diabetes mellitus (Chronic) CAD (coronary artery disease) (Chronic) Pleural effusion on left (Chronic) loculated per CT Chest 07/2019 thoracentesis 07/2019 Mass of right lung (Chronic) bronchoscopy 07/2019 Old inferior wall myocardial infarction (Chronic) Atherosclerotic heart disease of [place] coronary artery without angina pectoris (Chronic) History of non-ST elevation myocardial infarction (NSTEMI) (Chronic 07/21/17) Ischemic cardiomyopathy (Chronic) H/O coronary artery bypass surgery (Chronic 08/04/17) History of CVA (cerebrovascular accident) (Chronic 07/2017) Right bundle branch block (RBBB) (Chronic) Carotid artery stenosis (Chronic) R CEA 2018 Essential (primary) hypertension (Chronic) Claudication of both lower extremities (Chronic) Peripheral vascular occlusive disease (Chronic) RLE Medical History: Medical History (Last Updated 07/30/20 @ 13:[address] Fly Taylor MD) Pleural effusion on left (Chronic) J90 loculated per CT Chest 07/2019 thoracentesis 07/2019 Mass of right lung (Chronic) R91.8 bronchoscopy 07/2019 Old inferior wall myocardial infarction (Chronic) I25.2 Atherosclerotic heart disease of [place] coronary artery without angina pectoris (Chronic) I25.10 History of non-ST elevation myocardial infarction (NSTEMI) (Chronic) Onset Date: 07/21/17 I25.2 Ischemic cardiomyopathy (Chronic) I25.5 History of CVA (cerebrovascular accident) (Chronic) Onset Date: 07/2017 Z86.73 Right bundle branch block (RBBB) (Chronic) I45.10 Carotid artery stenosis (Chronic) I65.29 R CEA 2018 Essential (primary) hypertension (Chronic) I10 Claudication of both lower extremities (Chronic) I73.9 Peripheral vascular occlusive disease (Chronic) I73.9 RLE DM2 (diabetes mellitus, type 2) E11.9 Hepatic steatosis K76.0 Hydrocele, right N43.3 Pleural effusion (Inactive) J90 Allergies Zbuxivl-Ubo-Mwg Reductase Inhibitor Adverse Reaction (Severe, Verified 07/22/20 12:09) mylagias lisinopril Adverse Reaction (Verified 07/22/20 12:09) cough Home Medications: Ambulatory Orders Medication Instructions Recorded insulin human U-100 NPH-regulr 12 unit SC .COMPLEX 11/18/17 70-30 mix 100 unit/mL subcutaneous susp ascorbic acid (vitamin C) 1,000 mg 1 g PO DAILY tab 11/15/19 tablet aspirin 81 mg tablet,delayed 81 mg PO DAILY 11/15/19 release chromium picolinate 1,000 mcg 1,000 mcg PO DAILY 11/15/19 tablet coenzyme Q10 200 mg capsule 200 mg PO DAILY 11/15/19 dandelion 500 mg capsule 500 mg PO DAILY cap 11/15/19 grape seed extract 50 mg capsule 50 mg PO DAILY cap 11/15/19 pantoprazole 40 mg tablet,delayed 40 mg PO DAILY tab 11/15/19 release montelukast 10 mg tablet 10 mg PO DAILY 05/16/20 Ertapenem Sodium [Ertapenem] 1 gm IV DAILY 07/31/20 Losartan Potassium [Cozaar] 25 mg PO DAILY 07/31/20 Metoprolol(XL)Succ [Toprol Xl 12.5 mg PO DAILY 07/31/20 (Beta Nikolay)] Surgical History: Surgical History (Last Updated 07/30/20 @ 13:[address] Fly Taylor MD) H/O coronary artery bypass surgery (Chronic) Onset Date: 08/04/17 Z95.1 History of bronchoscopy Onset Date: 08/25/19 Z98.890 LUNG, RIGHT LOWER LOBE, BIOPSY - FEATURES SUGGEST ORGANIZING INFLAMMATION. SEE COMMENT. 08/25/2019 COMMENT; There is no evidence of malignancy. Immunohistochemical stain for S100 is negative for Langerhans cells. Special stains for AFB and GMS were negative for fungal elements and mycobacteria, respectively. History of right-sided carotid endarterectomy Onset Date: 09/24/17 Z98.890 09/24/[address] Reyes @ [facility] History of thoracentesis Onset Date: 07/2019 Z98.890 left Surgical History: coronary bypass surgery - x 3., - - Right CEA. Psychiatric History: No pertinent psych hx Lives: Alone Smoking Status: Never smoker Tobacco Use: Non-smoker Alcohol: None Drugs: None - *Family History Maternal History Items: - - Patient denies any market maternal family history including heart disease, diabetes, cancer. Paternal History Items: Heart Disease Review of Systems Constitutional: Denies: Chills, Fever, Weight Change HEENT: Denies: Head Aches, Sinus Congestion, Sinus Drainage Cardiovascular: Denies: Chest Pain, Palpitations Respiratory: Denies: Cough, Shortness of breath at rest, Sputum production Gastrointestinal: Denies: Abdominal Pain, Nausea, Vomiting Genitourinary: Denies: Dysuria Musculoskeletal: Denies: Joint Pain, Joint Tenderness Skin: Denies: Rash, Wounds Neurological: Denies: Numbness, Tingling, Focal weakness Psychiatric: Denies: Anxiety, Depression, Homicidal Ideations, Suicidal Ideations Hematologic/ Lymphatic: Denies: Easy Bruising, Easy Bleeding VTE Information - Inpt Only VTE Present on Admission: No VTE Mechan Device Prophylaxis: Knee High SYED Hose VTE Pharm Prophylaxis ordered?: Yes Patient Problems: Active and Suspected Problems (Last Updated 07/30/20 @ 13:[address] Fly Taylor MD) Debility (Acute) Multiple falls (Acute) Elevated troponin (Acute) Osteomyelitis of great toe of right foot (Acute) Near syncope (Acute) - Physical Exam Vitals/I&O's: Vital Signs Temp Pulse Resp BP Pulse Ox 98.3 F 76 20 H 154/85 H 94 07/31/20 14:41 07/31/20 16:12 07/31/20 16:12 07/31/20 14:41 07/31/20 16:12 Oxygen Delivery Method Room Air Weight: 91.217 kg Body Mass Index (BMI) 27.2 General: Alert, Oriented x3, Cooperative HEENT: Atraumatic, PERRLA, EOMI, Normocephalic Neck: Supple, No JVD, Negative Carotid Bruits Lungs: Clear to auscultation, Normal air movement Cardiovascular: Regular rate, No murmurs Abdomen: Bowel Sounds Present, Soft, Non Tender Extremities: No edema, Capillary Refill Less than 3 Seconds, - - Right upper extremity PICC line. Bilateral lower extremities dressed. Skin: No rashes, No breakdown Musculoskeletal: No Tenderness to Palpation of Joints or Extremities Neurological: Cranial nerves II-XII grossly intact Psych/Mental Status: Normal Affect, Appropriate Laboratory Results 07/31/20 15:30: COVID-19 (ADRIEL) Pending 07/31/20 16:40: POC Glucose 163 H Current Medications Ascorbic Acid (Ascorbic Acid 500 Mg Tablet) 1,000 mg PO DAILY [facility] Aspirin (Aspirin E.C. 81 Mg Tablet) 81 mg PO DAILYCM [facility] Bisacodyl (Bisacodyl 10 Mg Suppository) 10 mg RECTAL DAILY PRN PRN Reason: CONSTIPATION Heparin Sodium (Beef Lung) (Heparin Pf Lock 10 Units/Ml 50 Units/5 Ml Syringe) 50 units IV UD PRN PRN Reason: PICC Line Heparin Flush Ertapenem 1 gm/ Sodium (Chloride) 50 mls @ 100 mls/hr IV DAILY JOSIE Stop: 09/04/20 00:00 Insulin Lispro Protam/Lispro Human (Insulin Human 75/25 [place]) 20 unit SC BREAKFAST JOSIE Insulin Lispro Protam/Lispro Human (Insulin Human 75/25 [place]wick[place]) 10 unit SC DINNER JOSIE Last Admin: 07/31/20 18:17 Dose: 10 units Documented by: Losartan Potassium (Losartan Potassium 25 Mg Tablet) 25 mg PO DAILY [facility] Metoprolol Succinate (Metoprolol(Xl)Succ 25 Mg Tablet) 12.5 mg PO DAILY [facility]IE Montelukast Sodium (Montelukast 10 Mg Tablet) 10 mg PO DAILY [facility]OS[facility] Pantoprazole Sodium (Pantoprazole Sodium 40 Mg Tablet) 40 mg PO DAILY [facility] Sodium Chloride (0.9% Saline Lock 10 Ml Syringe) 10 - 40 ml IV UD PRN PRN Reason: Open End PICC Flush Sodium Chloride (0.9 % Nacl (Sterile) Posiflush 10 Ml) 10 - 40 ml IV UD PRN PRN Reason: Port access or dressing change Tuberculin PPD (Tuberculin,Purif.Prot.Deriv. 50 Tu/Ml Vial) 5 tu ID X1 ONE Stop: 08/01/20 10:01 Tuberculin PPD (Tuberculin,Purif.Prot.Deriv. 50 Tu/Ml Vial) 5 tu ID X1 ONE Stop: 08/08/20 10:01 Assessment/Plan All Active Problems (Last Updated 07/30/20 @ 13:[address] 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 Debility - PT/OT. Pain - Tylenol 1000MG Q6H PRN pain (1-10). Bowel - Miralax 17GM daily, Senna/colace 1 tablet BID, MOM 30ML daily PRN, Dulcolax 10MG [place] daily PRN. Adult immunization - Administer Prevnar 13, Pneumovax 23, Fluzone as appropriate. DVT prophylaxis - Lovenox 40MG SC daily. Vitamin C deficiency - Vitamin C 1000MG daily. Coronary Artery Disease - Metoprolol succinate 12.5MG daily, Losartan 25MG daily, Aspirin 81MG daily. Right great toe osteomyelitis - Ertapenem 1GM IV daily thru 09/04/2020, Consult Dr. Garcia, Dr. Carbajal. Diabetes Mellitus II - Humalog 75/25 20 units AM, 10 units with dinner. Allergic Rhinitis - Singulair 10MG daily. GERD - Pantoprazole 40MG daily.
[2020-07-31 21:35] LABS: Bedside Glucose 168 mg/dL (70-110)
[2020-08-01 04:26] LABS: Bedside Glucose 104 mg/dL (70-110)
[2020-08-01 05:15] LABS: Absolute Lymphocyte Count 1.19 X10^3/uL (0.83-4.51); Basophil# 0.08 X10^3/uL; Basophil% 0.5 % (0-1); Eosinophil# 0.44 X10^3/uL; Eosinophils% 2.9 % (0-5); Hematocrit 32.7 % (40-54); Hemoglobin 10.5 g/dL (13.0-16.5); Lymphocyte # 1.19 X10^3/ul (4.0); Lymphocyte % 7.7 % (19-41); Mean Corp Hgb Conc 32.1 g/dL (32-36); Mean Corpuscular Hgb 29.5 pg (27.0-32.0); Mean Corpuscular Volume 91.9 fL (80-94); Mean Platelet Vol. 11.2 fl (6.2-12.0); Monocyte# 1.51 X10^3/uL; Monocyte% 9.8 % (0-10); NRBC Flagged by Analyzer 0 % (0-5); Neutrophil # 12.02 X10^3/uL (2.7-7.7); Neutrophil % 78.1 % (47-70); POSITIVE DIFFERENTIAL YES; Platelet Count 412 K/mm3 (150-450); RBC Distribution Width CV 14.4 % (11.6-14.6); RBC Distribution Width SD 47.9 fl (35.1-43.9); Red Blood Count 3.56 M/mm3 (4.6-6.2); White Blood Count 15.4 K/mm3 (4.4-11.0)
[2020-08-01 05:22] LABS: Erythrocyte Sedimentation Rate 64 mm/hr (0-20)
[2020-08-01 05:23] LABS: Differential Indicated SCAN CRITERIA MET
[2020-08-01 05:31] VITALS: BP 164/72; PULSE 81; RESP 18; TEMP 36.9; O2SAT 94
[2020-08-01 05:33] LABS: Anion Gap 8 (5-15); BUN 21 mg/dL (7-18); BUN/Creat Ratio 21.6 RATIO (10-20); Calcium,Total 8.3 mg/dL (8.5-10.1); Chloride 105 mmol/L (98-107); Creatinine, Serum 0.97 mg/dL (0.70-1.30); EST Glomerular Filtration Rate 79 mL/min (>60); Est Glom Filt Rate - Afr Amer 96 mL/min (>60); Estimated Creatinine Clearance 67.78 ml/min; Glucose 117 mg/dL (74-106); Potassium 3.6 mmol/L (3.5-5.1); Sodium Level 138 mmol/L (136-145)
[2020-08-01] MEDS: Enoxaparin 40 MG/0.4 ML Syringe SC (05:34)
[2020-08-01] MEDS: Senna/Docusate Sodium 1 Tablet PO ×2 (05:34→17:28)
[2020-08-01] MEDS: Polyethylene Glycol 3350 17 GM PACKET PO (05:34)
[2020-08-01 05:35] VITALS: BP 164/72; PULSE 81
[2020-08-01] MEDS: Losartan Potassium 25 MG Tablet PO (05:35)
[2020-08-01] MEDS: Pantoprazole Sodium 40 MG Tablet PO (05:35)
[2020-08-01] MEDS: Metoprolol(XL)Succ 25 MG Tablet 12.5 MG PO (05:35)
[2020-08-01] MEDS: Montelukast 10 MG Tablet PO (05:35)
[2020-08-01] MEDS: Ascorbic Acid 500 MG Tablet 1000 MG PO (05:36)
[2020-08-01] MEDS: 0.9% Saline Lock 10 ML Syringe IV ×2 (05:50→08:32)
[2020-08-01 05:58] LABS: Differential Comment SCANNED
[2020-08-01 06:30] LABS: Bedside Glucose 146 mg/dL (70-110)
[2020-08-01] MEDS: Aspirin E.C. 81 MG Tablet PO (08:35)
[2020-08-01] MEDS: Insulin Human 75/25 Kwickpen 20 UNIT SC (08:35)
[2020-08-01] MEDS: Tuberculin,Purif.prot.deriv. 50 TU/ML Vial 5 ML ID (10:57)
[2020-08-01 11:16] LABS: Bedside Glucose 123 mg/dL (70-110)
[2020-08-01 11:43] LABS: Pathologist Review Reviewed
--- NOTE | 2020-08-01 14:47 | NURSING ---
wound photo: right great toe
--- NOTE | 2020-08-01 14:49 | NURSING ---
wound photo: right great toe
[2020-08-01 15:56] VITALS: BP 158/78; PULSE 76; RESP 18; TEMP 36.8; O2SAT 97
--- NOTE | 2020-08-01 16:09 | PN.ID_ITS ---
Patient Problems: Active and Suspected Problems (Last Updated 07/30/20 @ 13:[address] Fly Taylor MD) Debility (Acute) Multiple falls (Acute) Elevated troponin (Acute) Osteomyelitis of great toe of right foot (Acute) Near syncope (Acute) Subjective: Feeling ok, no fever, no n/v/d, no complaints - Physical Exam Vitals/I&O's: Vital Signs Temp Pulse Resp BP Pulse Ox 98.2 F 76 18 158/78 H 97 08/01/20 15:56 08/01/20 15:56 08/01/20 15:56 08/01/20 15:56 08/01/20 15:56 Oxygen Delivery Method Room Air Weight: 91.217 kg Body Mass Index (BMI) 27.2 Intake and Output for Last 24 Hours 07/30/20 07/31/20 08/01/20 23:59 23:59 23:59 Intake Total 360 / 360 360 / 360 Balance 360 / 360 360 / 360 General: Alert, Cooperative, No apparent distress Lungs: Clear to auscultation, Normal air movement Cardiovascular: Regular rate, Regular Rhythm Abdomen: Soft, Non Tender, Non-Distended Skin: No rashes Laboratory Results 07/31/20 16:40: POC Glucose 163 H 07/31/20 21:26: POC Glucose 168 H 08/01/20 04:24: POC Glucose 104 08/01/20 04:35: WBC 15.4 H, RBC 3.56 L, Hgb 10.5 L, Hct 32.7 L, MCV 91.9, MCH 29.5, MCHC 32.1, RDW Std Deviation 47.9 H, RDW Coeff of Sacha 14.4, Plt Count 412, MPV 11.2, Immature Gran % (Auto) 1.000 H, Neut % (Auto) 78.1 H, Lymph % (Auto) 7.7 L, Morgan % (Auto) 9.8, Eos % (Auto) 2.9, Baso % (Auto) 0.5, Absolute Neuts (auto) 12.0 H, Absolute Lymphs (auto) 1.19, Nucleated RBC % 0, Differential Comment SCANNED, Diff Path Review Reviewed, ESR 64 H 08/01/20 04:35: Sodium 138, Potassium 3.6, Chloride 105, Carbon Dioxide 25.0, Anion Gap 8, BUN 21 H, Creatinine 0.97, Estim Creat Clear Calc 67.78, Est GFR (MDRD) Af Amer 96, Est GFR (MDRD) Non-Af 79, BUN/Creatinine Ratio 21.6 H, Glucose 117 H, Calcium 8.3 L 08/01/20 06:18: POC Glucose 146 H 08/01/20 11:08: POC Glucose 123 H Current Medications Acetaminophen (Acetaminophen 500 Mg Tablet) 1,000 mg PO Q6H PRN PRN PRN Reason: Pain Score 1-10 Ascorbic Acid (Ascorbic Acid 500 Mg Tablet) 1,000 mg PO DAILY [facility] Last Admin: 08/01/20 05:36 Dose: 1,000 mg Documented by: Aspirin (Aspirin E.C. 81 Mg Tablet) 81 mg PO DAILYCM [facility] Last Admin: 08/01/20 08:35 Dose: 81 mg Documented by: Bisacodyl (Bisacodyl 10 Mg Suppository) 10 mg RECTAL DAILY PRN PRN Reason: CONSTIPATION Enoxaparin Sodium (Enoxaparin 40 Mg/0.4 Ml Syringe) 40 mg SC DAILY@0600 [facility] Last Admin: 08/01/20 05:34 Dose: 40 mg Documented by: Heparin Sodium (Beef Lung) (Heparin Pf Lock 10 Units/Ml 50 Units/5 Ml Syringe) 50 units IV UD PRN PRN Reason: PICC Line Heparin Flush Ertapenem 1 gm/ Sodium (Chloride) 50 mls @ 100 mls/hr IV DAILY [facility] Stop: 09/04/20 00:00 Last Admin: 08/01/20 05:52 Dose: 100 mls/hr Documented by: Sodium Chloride () 250 mls @ 15 mls/hr IV .[id number] PRN PRN Reason: Saline Flush Last Admin: 08/01/20 05:45 Dose: 15 mls/hr Documented by: Sodium Chloride () 250 mls @ 15 mls/hr IV .[id number] PRN PRN Reason: Additional IVPB Infusion Insulin Lispro Protam/Lispro Human (Insulin Human 75/25 [place]) 20 unit SC BREAKFAST [facility] Last Admin: 08/01/20 08:35 Dose: 20 units Documented by: Insulin Lispro Protam/Lispro Human (Insulin Human 75/25 [place]) 10 unit SC DINNER [facility] Last Admin: 07/31/20 18:17 Dose: 10 units Documented by: Losartan Potassium (Losartan Potassium 25 Mg Tablet) 25 mg PO DAILY [facility] Last Admin: 08/01/20 05:35 Dose: 25 mg Documented by: Magnesium Hydroxide (Magnesium Hydroxide 30 Ml Udc) 30 ml PO DAILY PRN PRN Reason: Constipation Metoprolol Succinate (Metoprolol(Xl)Succ 25 Mg Tablet) 12.5 mg PO DAILY [facility] Last Admin: 08/01/20 05:35 Dose: 12.5 mg Documented by: Montelukast Sodium (Montelukast 10 Mg Tablet) 10 mg PO DAILY [facility] Last Admin: 08/01/20 05:35 Dose: 10 mg Documented by: Pantoprazole Sodium (Pantoprazole Sodium 40 Mg Tablet) 40 mg PO DAILY [facility] Last Admin: 08/01/20 05:35 Dose: 40 mg Documented by: Polyethylene Glycol (Polyethylene Glycol 3350 17 Gm Packet) 17 gm PO DAILY [facility] Last Admin: 08/01/20 05:34 Dose: 17 gm Documented by: Senna/Docusate Sodium (Senna/Docusate Sodium 1 Tablet) 1 tablet PO BID [facility] Last Admin: 08/01/20 05:34 Dose: 1 tablet Documented by: Sodium Chloride (0.9% Saline Lock 10 Ml Syringe) 10 - 40 ml IV UD PRN PRN Reason: Open End PICC Flush Last Admin: 08/01/20 08:32 Dose: 10 ml Documented by: Sodium Chloride (0.9 % Nacl (Sterile) Posiflush 10 Ml) 10 - 40 ml IV UD PRN PRN Reason: Port access or dressing change Tuberculin PPD (Tuberculin,Purif.Prot.Deriv. 50 Tu/Ml Vial) 5 tu ID X1 ONE Stop: 08/08/20 10:01 Medical Necessity - Tobacco Use Smoking Status: Never smoker Tobacco Use: Non-smoker Route of nutrition/ use of supplements: [] Nutritional Intake: [] IV Site: [] Rosenberg Catheter: [] - Assessment/Plan Antibiotics: [] Assessment/Plan: [] Active and Suspected Problems (Last Updated 07/30/20 @ 13:[address] 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 Carbajal neg so far. Poor bloodflow, angio done and no intervention able to be performed. Cont ertapenem. Cx with MSSA and anaerobes. Has picc, since he is in TCU, will narrow abx back to unasyn. Stop date 09/04/20. Will follow
[2020-08-01 16:45] LABS: Bedside Glucose 108 mg/dL (70-110)
--- NOTE | 2020-08-01 16:51 | CHAPLAIN ---
Type of Pastoral Visit _x__ Initial Visit ___ Follow-up Visit ___ On-call Visit ___ General Patient Visit ___ Spiritual Assessment ___ Family Conference ___ Bereavement ___ Rapid Response ___ Code Blue ___ Other (describe below) Pastoral Care Referral From _x__ Patient ___ Family ___ Nurse ___ Physician ___ Baker ___ Line Painting Machine Operator ___ Other (describe below) Sacrament/Intervention _x__ Active listening ___ Anointing ___ Orthodoxy ___ Bereavement ___ Communion _x__ Pham exploration ___ ___ Life review _x__ Prayer ___ Reconciliation ___ Sacrament of Sick _x__ Supportive presence ___ Wedding ___ Other (describe below) Pastoral Comments
[2020-08-01] MEDS: Insulin Human 75/25 Kwickpen 10 UNIT SC (18:15)
[2020-08-01] MEDS: Ciprofloxacin 0.3% 2.5ml Bottle 1 DRP RIGHT EYE (21:17)
[2020-08-01 21:30] LABS: Bedside Glucose 117 mg/dL (70-110)
[2020-08-02] MEDS: Ciprofloxacin 0.3% 2.5ml Bottle 1 DRP RIGHT EYE ×6 (01:35→21:20)
[2020-08-02] MEDS: Acetaminophen 500 MG Tablet 1000 MG PO (03:23)
[2020-08-02 05:49] VITALS: BP 114/72; PULSE 74; RESP 18; TEMP 36.6; O2SAT 92
[2020-08-02 05:55] LABS: AST(SGOT) 24 U/L (15-37); Alanine Aminotransfer ALT/SGPT 22 U/L (16-61); Albumin, Serum 2.1 g/dL (3.2-5.0); Alkaline Phosphatase 79 U/L (45-117); Bilirubin, Direct 0.32 mg/dL (0.00-0.30); Globulin 4.2 g/dL (2.2-4.2); Protein, Total 6.3 g/dL (6.4-8.2)
[2020-08-02 05:57] LABS: Erythrocyte Sedimentation Rate 65 mm/hr (0-20)
[2020-08-02 05:59] VITALS: BP 114/72; PULSE 74
[2020-08-02] MEDS: Metoprolol(XL)Succ 25 MG Tablet 12.5 MG PO (05:59)
[2020-08-02] MEDS: Polyethylene Glycol 3350 17 GM PACKET PO (05:59)
[2020-08-02] MEDS: Enoxaparin 40 MG/0.4 ML Syringe SC (05:59)
[2020-08-02] MEDS: Ascorbic Acid 500 MG Tablet 1000 MG PO (05:59)
[2020-08-02] MEDS: Senna/Docusate Sodium 1 Tablet PO ×2 (06:00→17:38)
[2020-08-02] MEDS: Pantoprazole Sodium 40 MG Tablet PO (06:00)
[2020-08-02] MEDS: Montelukast 10 MG Tablet PO (06:00)
[2020-08-02] MEDS: Losartan Potassium 25 MG Tablet PO (06:00)
[2020-08-02 06:15] LABS: Bedside Glucose 130 mg/dL (70-110)
[2020-08-02] MEDS: Insulin Human 75/25 Kwickpen 20 UNIT SC (08:09)
[2020-08-02] MEDS: Aspirin E.C. 81 MG Tablet PO (08:10)
[2020-08-02] MEDS: 0.9% Saline Lock 10 ML Syringe IV ×2 (08:17→13:05)
--- NOTE | 2020-08-02 09:08 | CON.PCM_ITS ---
Reason for Consult Date of Consultation: 08/01/20 Reason for Consultation: Right 1st toe - continued care History of Present Illness: The patient is a 80 year old gentleman was seen today for follow up on right 1st toe. Patient is resting comfortably in bed, no complaints, no complaints of fever, chills, nausea or vomiting. He denies any pain to toe or rest of feet. Past Medical History Past Medical History (Chronic Problems): Chronic Problems (Last Updated 07/30/20 @ 13:[address] Fly Taylor MD) Chronic systolic congestive heart failure (Chronic) Peripheral arterial occlusive disease (Chronic) Hypertension (Chronic) Stroke (Chronic) Hyperlipidemia (Chronic) Diabetes mellitus (Chronic) CAD (coronary artery disease) (Chronic) Pleural effusion on left (Chronic) loculated per CT Chest 07/2019 thoracentesis 07/2019 Mass of right lung (Chronic) bronchoscopy 07/2019 Old inferior wall myocardial infarction (Chronic) Atherosclerotic heart disease of [place] coronary artery without angina pectoris (Chronic) History of non-ST elevation myocardial infarction (NSTEMI) (Chronic 07/21/17) Ischemic cardiomyopathy (Chronic) H/O coronary artery bypass surgery (Chronic 08/04/17) History of CVA (cerebrovascular accident) (Chronic 07/2017) Right bundle branch block (RBBB) (Chronic) Carotid artery stenosis (Chronic) R CEA 2018 Essential (primary) hypertension (Chronic) Claudication of both lower extremities (Chronic) Peripheral vascular occlusive disease (Chronic) RLE Medical History: Medical History (Last Updated 07/30/20 @ 13:[address] Fly Taylor MD) Pleural effusion on left (Chronic) J90 loculated per CT Chest 07/2019 thoracentesis 07/2019 Mass of right lung (Chronic) R91.8 bronchoscopy 07/2019 Old inferior wall myocardial infarction (Chronic) I25.2 Atherosclerotic heart disease of [place] coronary artery without angina pectoris (Chronic) I25.10 History of non-ST elevation myocardial infarction (NSTEMI) (Chronic) Onset Date: 07/21/17 I25.2 Ischemic cardiomyopathy (Chronic) I25.5 History of CVA (cerebrovascular accident) (Chronic) Onset Date: 07/2017 Z86.73 Right bundle branch block (RBBB) (Chronic) I45.10 Carotid artery stenosis (Chronic) I65.29 R CEA 2018 Essential (primary) hypertension (Chronic) I10 Claudication of both lower extremities (Chronic) I73.9 Peripheral vascular occlusive disease (Chronic) I73.9 RLE DM2 (diabetes mellitus, type 2) E11.9 Hepatic steatosis K76.0 Hydrocele, right N43.3 Pleural effusion (Inactive) J90 Allergies Zjfcbhw-Mcl-Gbu Reductase Inhibitor Adverse Reaction (Severe, Verified 07/22/20 12:09) mylagias lisinopril Adverse Reaction (Verified 07/22/20 12:09) cough Home Medications: Ambulatory Orders Medication Instructions Recorded insulin human U-100 NPH-regulr 12 unit SC .COMPLEX 11/18/17 70-30 mix 100 unit/mL subcutaneous susp ascorbic acid (vitamin C) 1,000 mg 1 g PO DAILY tab 11/15/19 tablet aspirin 81 mg tablet,delayed 81 mg PO DAILY 11/15/19 release chromium picolinate 1,000 mcg 1,000 mcg PO DAILY 11/15/19 tablet coenzyme Q10 200 mg capsule 200 mg PO DAILY 11/15/19 dandelion 500 mg capsule 500 mg PO DAILY cap 11/15/19 grape seed extract 50 mg capsule 50 mg PO DAILY cap 11/15/19 pantoprazole 40 mg tablet,delayed 40 mg PO DAILY tab 11/15/19 release montelukast 10 mg tablet 10 mg PO DAILY 05/16/20 Ertapenem Sodium [Ertapenem] 1 gm IV DAILY 07/31/20 Losartan Potassium [Cozaar] 25 mg PO DAILY 07/31/20 Metoprolol(XL)Succ [Toprol Xl 12.5 mg PO DAILY 07/31/20 (Beta Nikolay)] Surgical History: Surgical History (Last Updated 07/30/20 @ 13:[address] Fly Taylor MD) H/O coronary artery bypass surgery (Chronic) Onset Date: 08/04/17 Z95.1 History of bronchoscopy Onset Date: 08/25/19 Z98.890 LUNG, RIGHT LOWER LOBE, BIOPSY - FEATURES SUGGEST ORGANIZING INFLAMMATION. SEE COMMENT. 08/25/2019 COMMENT; There is no evidence of malignancy. Immunohistochemical stain for S100 is negative for Langerhans cells. Special stains for AFB and GMS were negative for fungal elements and mycobacteria, respectively. History of right-sided carotid endarterectomy Onset Date: 09/24/17 Z98.890 09/24/[address] Reyes @ [facility] History of thoracentesis Onset Date: 07/2019 Z98.890 left Surgical History: coronary bypass surgery - x 3., - - Right CEA. Psychiatric History: No pertinent psych hx Lives: Alone Smoking Status: Never smoker Tobacco Use: Non-smoker Alcohol: None Drugs: None - *Family History Paternal History Items: Heart Disease Maternal History Items: - - Patient denies any market maternal family history including heart disease, diabetes, cancer. Review of Systems Constitutional: Denies: Chills, Fever Gastrointestinal: Denies: Nausea, Vomiting Patient Problems: Active and Suspected Problems (Last Updated 07/30/20 @ 13:[address] Fly Taylor MD) Debility (Acute) Multiple falls (Acute) Elevated troponin (Acute) Osteomyelitis of great toe of right foot (Acute) Near syncope (Acute) - Physical Exam Vitals/I&O's: Vital Signs Temp Pulse Resp BP Pulse Ox 98 F 74 18 114/72 92 08/02/20 05:49 08/02/20 05:59 08/02/20 05:49 08/02/20 05:59 08/02/20 05:49 Oxygen Delivery Method Room Air Weight: 91.217 kg Body Mass Index (BMI) 27.2 Intake and Output for Last 24 Hours 07/31/20 08/01/20 08/02/20 23:59 23:59 23:59 Intake Total 360 / 360 882 / 882 Balance 360 / 360 882 / 882 General: Alert, Oriented x3, Cooperative, No apparent distress Extremities: - - Right 1st toe with dry necrosis to the distal aspect, no drainage, there is some erythema around the toe, no streaking, no maloder, nothing wet - it is dry and stable. There are no other open lesions or areas, necrosis or tissue breakdown bilateral foot or ankle. Musculoskeletal: - - No pain to the foot or ankle bilateal, sensation is de creased bilateral foot. Psych/Mental Status: Appropriate Laboratory Results 08/01/20 04:35: Diff Path Review Reviewed 08/01/20 11:08: POC Glucose 123 H 08/01/20 16:42: POC Glucose 108 08/01/20 21:22: POC Glucose 117 H 08/02/20 05:20: ESR 65 H 08/02/20 05:20: Total Bilirubin 0.90, Direct Bilirubin 0.32 H, AST 24, ALT 22, Alkaline Phosphatase 79, Total Protein 6.3 L, Albumin 2.1 L, Globulin 4.2 08/02/20 06:11: POC Glucose 130 H Current Medications Acetaminophen (Acetaminophen 500 Mg Tablet) 1,000 mg PO Q6H PRN PRN PRN Reason: Pain Score 1-10 Last Admin: 08/02/20 03:23 Dose: 1,000 mg Documented by: Ascorbic Acid (Ascorbic Acid 500 Mg Tablet) 1,000 mg PO DAILY [facility] Last Admin: 08/02/20 05:59 Dose: 1,000 mg Documented by: Aspirin (Aspirin E.C. 81 Mg Tablet) 81 mg PO DAILYCM [facility] Last Admin: 08/02/20 08:10 Dose: 81 mg Documented by: Bisacodyl (Bisacodyl 10 Mg Suppository) 10 mg RECTAL DAILY PRN PRN Reason: CONSTIPATION Ciprofloxacin HCl (Ciprofloxacin 0.3% 2.5ml Bottle) 1 drop RIGHT EYE Q4 [facility] Stop: 08/08/20 18:01 Last Admin: 08/02/20 06:00 Dose: 1 drop Documented by: Enoxaparin Sodium (Enoxaparin 40 Mg/0.4 Ml Syringe) 40 mg SC DAILY@0600 [facility] Last Admin: 08/02/20 05:59 Dose: 40 mg Documented by: Heparin Sodium (Beef Lung) (Heparin Pf Lock 10 Units/Ml 50 Units/5 Ml Syringe) 50 units IV UD PRN PRN Reason: PICC Line Heparin Flush Sodium Chloride () 250 mls @ 15 mls/hr IV .[id number] PRN PRN Reason: Saline Flush Last Admin: 08/01/20 05:45 Dose: 15 mls/hr Documented by: Sodium Chloride () 250 mls @ 15 mls/hr IV .[id number] PRN PRN Reason: Additional IVPB Infusion Ampicillin Sodium/Sulbactam (Sodium 3 gm/ Sodium Chloride) 112 mls @ 150 mls/hr IV Q8 [facility] Stop: 09/04/20 18:01 Last Admin: 08/02/20 05:56 Dose: 150 mls/hr Documented by: Insulin Lispro Protam/Lispro Human (Insulin Human 75/25 [place]) 20 unit SC BREAKFAST [facility] Last Admin: 08/02/20 08:09 Dose: 20 units Documented by: Insulin Lispro Protam/Lispro Human (Insulin Human 75/25 [place]) 10 unit SC DINNER [facility] Last Admin: 08/01/20 18:15 Dose: 10 units Documented by: Losartan Potassium (Losartan Potassium 25 Mg Tablet) 25 mg PO DAILY [facility] Last Admin: 08/02/20 06:00 Dose: 25 mg Documented by: Magnesium Hydroxide (Magnesium Hydroxide 30 Ml Udc) 30 ml PO DAILY PRN PRN Reason: Constipation Metoprolol Succinate (Metoprolol(Xl)Succ 25 Mg Tablet) 12.5 mg PO DAILY [facility] Last Admin: 08/02/20 05:59 Dose: 12.5 mg Documented by: Montelukast Sodium (Montelukast 10 Mg Tablet) 10 mg PO DAILY [facility] Last Admin: 08/02/20 06:00 Dose: 10 mg Documented by: Pantoprazole Sodium (Pantoprazole Sodium 40 Mg Tablet) 40 mg PO DAILY [facility] Last Admin: 08/02/20 06:00 Dose: 40 mg Documented by: Polyethylene Glycol (Polyethylene Glycol 3350 17 Gm Packet) 17 gm PO DAILY [facility] Last Admin: 08/02/20 05:59 Dose: 17 gm Documented by: Senna/Docusate Sodium (Senna/Docusate Sodium 1 Tablet) 1 tablet PO BID [facility] Last Admin: 08/02/20 06:00 Dose: 1 tablet Documented by: Sodium Chloride (0.9% Saline Lock 10 Ml Syringe) 10 - 40 ml IV UD PRN PRN Reason: Open End PICC Flush Last Admin: 08/02/20 08:17 Dose: 20 ml Documented by: Sodium Chloride (0.9 % Nacl (Sterile) Posiflush 10 Ml) 10 - 40 ml IV UD PRN PRN Reason: Port access or dressing change Tuberculin PPD (Tuberculin,Purif.Prot.Deriv. 50 Tu/Ml Vial) 5 tu ID X1 ONE Stop: 08/08/20 10:01 Assessment/Plan All Active Problems (Last Updated 07/30/20 @ 13:[address] 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 Reviewed diagnostic data. We have discussed/consulted with Dr. Suarez who performed lower extremity angiogram - Patient has poor arterial flow to toe and foot, and has very questionable healing potential for any toe or partial foot amputation. Right 1st toe is dry and stable at this time. We discussed the options and with patient permission discussed with patient's son Emanuel...at this time we have decided we will continue to perform monitoring of the toe, let demarcate, perform local wound care, as well as offloading; and patient also on antibiotics at this time - followed by Dr. Garcia/ID. Patient understands eventually he may require an amputation. Continue daily dressing changes with betadine covered by DSD. Continue with antibiotic therapy per Infectious Disease/ID service. Discussed with Dr. Garcia. No weightbearing to right forefoot, ok to put weight on right heel for transitions only. Podiatry will continue to follow. Please contact if any concerns.
[2020-08-02 10:56] LABS: Bedside Glucose 129 mg/dL (70-110)
--- NOTE | 2020-08-02 11:47 | CASEMGMT ---
Social Work Discussed patient's code status. Pt confirmed full code. MOLST form reviewed, communication to , placed in chart. Olga Templeton, DIE TESTER STENOTYPE MACHINE OPERATOR
--- NOTE | 2020-08-02 13:24 | NURSING ---
R' NOTIFIED OF COVID STATUS ON UNIT.
[2020-08-02 14:27] VITALS: BP 156/71; PULSE 68; RESP 17; TEMP 36.2; O2SAT 96
--- NOTE | 2020-08-02 14:32 | NURSING ---
Resident and family updated on current Covid status on the unit.
--- NOTE | 2020-08-02 14:52 | PCM.PN.RX ---
<Char Mclean - Last Filed: 08/02/20 14:52> Progress Note - Pharmacy Subjective: TCU Admission Objective: Allergies Wscnvnl-Eld-Eky Reductase Inhibitor Adverse Reaction (Severe, Verified 07/22/20 12:09) mylagias lisinopril Adverse Reaction (Verified 07/22/20 12:09) cough Current Medications Generic Name Dose Route Start Last Admin Trade Name Anupamq PRN Reason Stop Dose Admin Acetaminophen 1,000 mg 07/31/20 20:51 08/02/20 03:23 Acetaminophen 500 Mg Tablet PO 1,000 mg Q6H PRN PRN Administration Pain Score 1-10 Ascorbic Acid 1,000 mg 08/01/20 06:00 08/02/20 05:59 Ascorbic Acid 500 Mg Tablet PO 1,000 mg DAILY JOSIE Administration Aspirin 81 mg 08/01/20 08:00 08/02/20 08:10 Aspirin E.C. 81 Mg Tablet PO 81 mg DAILYCM JOSIE Administration Bisacodyl 10 mg 07/31/20 15:02 Bisacodyl 10 Mg Suppository RECTAL DAILY PRN CONSTIPATION Ciprofloxacin HCl 1 drop 08/01/20 18:00 08/02/20 13:06 Ciprofloxacin 0.3% 2.5ml Bottle RIGHT EYE 08/08/20 18:01 1 drop Q4 JOSIE Administration Enoxaparin Sodium 40 mg 08/01/20 06:00 08/02/20 05:59 Enoxaparin 40 Mg/0.4 Ml Syringe SC 40 mg DAILY@0600 JOSIE Administration Heparin Sodium (Beef Lung) 50 units 07/31/20 14:42 Heparin Pf Lock 10 Units/Ml 50 Units/5 Ml Syringe IV UD PRN PICC Line Heparin Flush Sodium Chloride 250 mls @ 15 mls/hr 08/01/20 05:38 08/01/20 05:45 IV 15 mls/hr .[id number] PRN Administration Saline Flush Sodium Chloride 250 mls @ 15 mls/hr 08/01/20 05:38 IV .[id number] PRN Additional IVPB Infusion Ampicillin Sodium/Sulbactam 112 mls @ 150 mls/hr 08/01/20 18:00 08/02/20 14:10 Sodium 3 gm/ Sodium Chloride IV 09/04/20 18:01 Infused Q8 JOSIE Infusion Insulin Lispro Protam/Lispro Human 20 unit 08/01/20 08:00 08/02/20 08:09 Insulin Human 75/25 [place] SC 20 units BREAKFAST JOSIE Administration Insulin Lispro Protam/Lispro Human 10 unit 07/31/20 17:00 08/01/20 18:15 Insulin Human 75/25 [place] SC 10 units DINNER JOSIE Administration Losartan Potassium 25 mg 08/01/20 06:00 08/02/20 06:00 Losartan Potassium 25 Mg Tablet PO 25 mg DAILY JOSIE Administration Magnesium Hydroxide 30 ml 07/31/20 20:52 Magnesium Hydroxide 30 Ml Udc PO DAILY PRN Constipation Metoprolol Succinate 12.5 mg 08/01/20 06:00 08/02/20 05:59 Metoprolol(Xl)Succ 25 Mg Tablet PO 12.5 mg DAILY JOSIE Administration Montelukast Sodium 10 mg 08/01/20 06:00 08/02/20 06:00 Montelukast 10 Mg Tablet PO 10 mg DAILY JOSIE Administration Pantoprazole Sodium 40 mg 08/01/20 06:00 08/02/20 06:00 Pantoprazole Sodium 40 Mg Tablet PO 40 mg DAILY JOSIE Administration Polyethylene Glycol 17 gm 08/01/20 06:00 08/02/20 05:59 Polyethylene Glycol 3350 17 Gm Packet PO 17 gm DAILY JOSIE Administration Senna/Docusate Sodium 1 tablet 08/01/20 06:00 08/02/20 06:00 Senna/Docusate Sodium 1 Tablet PO 1 tablet BID JOSIE Administration Sodium Chloride 10 - 40 ml 07/31/20 14:42 08/02/20 13:05 0.9% Saline Lock 10 Ml Syringe IV 20 ml UD PRN Administration Open End PICC Flush Sodium Chloride 10 - 40 ml 07/31/20 14:42 0.9 % Nacl (Sterile) Posiflush 10 Ml IV UD PRN Port access or dressing change Tuberculin PPD 5 tu 08/08/20 10:00 Tuberculin,Purif.Prot.Deriv. 50 Tu/Ml Vial ID 08/08/20 10:01 X1 ONE Problem List (Last Updated 07/30/20 @ 13:[address] Fly Taylor MD) Debility (Acute) Multiple falls (Acute) Elevated troponin (Acute) Chronic systolic congestive heart failure (Chronic) Osteomyelitis of great toe of right foot (Acute) Peripheral arterial occlusive disease (Chronic) Hypertension (Chronic) Stroke (Chronic) Hyperlipidemia (Chronic) Diabetes mellitus (Chronic) Near syncope (Acute) CAD (coronary artery disease) (Chronic) Carotid artery stenosis (Chronic) Vital Signs Temp Pulse Resp BP Pulse Ox 97.2 F L 68 17 156/71 H 96 08/02/20 14:27 08/02/20 14:27 08/02/20 14:27 08/02/20 14:27 08/02/20 14:27 Oxygen Delivery Method Room Air Weight: 91.217 kg Body Mass Index (BMI) 27.2 Sodium 138 mmol/L (136-145) 08/01/20 04:35 Potassium 3.6 mmol/L (3.5-5.1) 08/01/20 04:35 Chloride 105 mmol/L (98-107) 08/01/20 04:35 Carbon Dioxide 25.0 mmol/L (21.0-32.0) 08/01/20 04:35 Anion Gap 8 (5-15) 08/01/20 04:35 BUN 21 mg/dL (7-18) H 08/01/20 04:35 Creatinine 0.97 mg/dL (0.70-1.30) 08/01/20 04:35 Est GFR (MDRD) Af Amer 96 mL/min (>60) 08/01/20 04:35 Est GFR (MDRD) Non-Af 79 mL/min (>60) 08/01/20 04:35 BUN/Creatinine Ratio 21.6 RATIO (10-20) H 08/01/20 04:35 Glucose 117 mg/dL (74-106) H 08/01/20 04:35 Assessment/Plan: 1. Pain: acetaminophen 1000mg PO Q6H PRN pain -05/05. Please continue to monitor for increased pain and PRN usage. 2. DVT prophylaxis: enoxaparin 40mg SC daily. Please continue to monitor for S/S of bleeding, hemoglobin (last 10.5g/dL), platelets (last 412,000), and renal function. 3. Great right toe osteomyelitis: ampicillin/sulbactam 3gm IV Q8H thru 09/04/20. Please continue to monitor for S/S of infection, diarrhea, and renal function. 4. CAD: metoprolol succinate 12.5mg PO daily, losartan 25mg PO daily, and aspirin 81mg PO daily. Please continue to monitor HR (last 68), BP (last 156/71), renal function and S/S of bleeding. 5. Diabetes mellitus II: Humalog mix 75/25 - 20units SC breakfast and 10units SC dinner. Please continue to monitor for S/S of hypoglycemia, hemoglobin A1c (last 5.9%) and blood sugars (last 117mg/dL). 6. Allergic rhinitis: montelukast 10mg PO daily. Please continue to monitor. 7. GERD: pantoprazole 40mg PO daily. Please continue to monitor for S/S of GERD and diarrhea. 8. Vitamin C deficiency: ascorbic acid 1000mg PO daily. Please continue to monitor. Psychotropic Medications: None Unnecessary Medications: ciprofloxacin 0.3% ophthalmic drops 1gtt in the right eye Q4H thru 08/08/20. I did not see a documented indication for ciprofloxacin. Please consider adding an indication. Bowel Regimen: Miralax 17gm PO daily, senna/docusate 1T PO BID, MOM 30mL PO daily PRN constipation, and bisacodyl 10mg [place] daily PRN constipation. Please continue to monitor for S/S of constipation and PRN usage. Date of Note:: 08/02/20 - Provider Comments Provider responsibility: Provider responsible to enter orders to implement recommendations <Vishal Alejo Chi - Last Filed: 08/02/20 17:59> Progress Note - Pharmacy Subjective: [] Objective: Allergies Gbcsavs-Hyd-Waf Reductase Inhibitor Adverse Reaction (Severe, Verified 07/22/20 12:09) mylagias lisinopril Adverse Reaction (Verified 07/22/20 12:09) cough Current Medications Generic Name Dose Route Start Last Admin Trade Name Freq PRN Reason Stop Dose Admin Acetaminophen 1,000 mg 07/31/20 20:51 08/02/20 03:23 Acetaminophen 500 Mg Tablet PO 1,000 mg Q6H PRN PRN Administration Pain Score 1-10 Ascorbic Acid 1,000 mg 08/01/20 06:00 08/02/20 05:59 Ascorbic Acid 500 Mg Tablet PO 1,000 mg DAILY JOSIE Administration Aspirin 81 mg 08/01/20 08:00 08/02/20 08:10 Aspirin E.C. 81 Mg Tablet PO 81 mg DAILYCM JOSIE Administration Bisacodyl 10 mg 07/31/20 15:02 Bisacodyl 10 Mg Suppository RECTAL DAILY PRN CONSTIPATION Ciprofloxacin HCl 1 drop 08/01/20 18:00 08/02/20 17:37 Ciprofloxacin 0.3% 2.5ml Bottle RIGHT EYE 08/08/20 18:01 1 drop Q4 JOSIE Administration Enoxaparin Sodium 40 mg 08/01/20 06:00 08/02/20 05:59 Enoxaparin 40 Mg/0.4 Ml Syringe SC 40 mg DAILY@0600 JOSIE Administration Heparin Sodium (Beef Lung) 50 units 07/31/20 14:42 Heparin Pf Lock 10 Units/Ml 50 Units/5 Ml Syringe IV UD PRN PICC Line Heparin Flush Sodium Chloride 250 mls @ 15 mls/hr 08/01/20 05:38 08/01/20 05:45 IV 15 mls/hr .[id number] PRN Administration Saline Flush Sodium Chloride 250 mls @ 15 mls/hr 08/01/20 05:38 IV .[id number] PRN Additional IVPB Infusion Ampicillin Sodium/Sulbactam 112 mls @ 150 mls/hr 08/01/20 18:00 08/02/20 14:10 Sodium 3 gm/ Sodium Chloride IV 09/04/20 18:01 Infused Q8 JOSIE Infusion Insulin Lispro Protam/Lispro Human 20 unit 08/01/20 08:00 08/02/20 08:09 Insulin Human 75/25 [place] SC 20 units BREAKFAST JOSIE Administration Insulin Lispro Protam/Lispro Human 10 unit 07/31/20 17:00 08/02/20 17:37 Insulin Human 75/25 [place] SC 10 units DINNER JSOIE Administration Losartan Potassium 25 mg 08/01/20 06:00 08/02/20 06:00 Losartan Potassium 25 Mg Tablet PO 25 mg DAILY JOSIE Administration Magnesium Hydroxide 30 ml 07/31/20 20:52 Magnesium Hydroxide 30 Ml Udc PO DAILY PRN Constipation Metoprolol Succinate 12.5 mg 08/01/20 06:00 08/02/20 05:59 Metoprolol(Xl)Succ 25 Mg Tablet PO 12.5 mg DAILY JOSIE Administration Montelukast Sodium 10 mg 08/01/20 06:00 08/02/20 06:00 Montelukast 10 Mg Tablet PO 10 mg DAILY JOSIE Administration Pantoprazole Sodium 40 mg 08/01/20 06:00 08/02/20 06:00 Pantoprazole Sodium 40 Mg Tablet PO 40 mg DAILY JOSIE Administration Polyethylene Glycol 17 gm 08/01/20 06:00 08/02/20 05:59 Polyethylene Glycol 3350 17 Gm Packet PO 17 gm DAILY JOSIE Administration Senna/Docusate Sodium 1 tablet 08/01/20 06:00 08/02/20 17:38 Senna/Docusate Sodium 1 Tablet PO 1 tablet BID JOSIE Administration Sodium Chloride 10 - 40 ml 07/31/20 14:42 08/02/20 13:05 0.9% Saline Lock 10 Ml Syringe IV 20 ml UD PRN Administration Open End PICC Flush Sodium Chloride 10 - 40 ml 07/31/20 14:42 0.9 % Nacl (Sterile) Posiflush 10 Ml IV UD PRN Port access or dressing change Tuberculin PPD 5 tu 08/08/20 10:00 Tuberculin,Purif.Prot.Deriv. 50 Tu/Ml Vial ID 08/08/20 10:01 X1 ONE Problem List (Last Updated 07/30/20 @ 13:[address] Fly Taylor MD) Debility (Acute) Multiple falls (Acute) Elevated troponin (Acute) Chronic systolic congestive heart failure (Chronic) Osteomyelitis of great toe of right foot (Acute) Peripheral arterial occlusive disease (Chronic) Hypertension (Chronic) Stroke (Chronic) Hyperlipidemia (Chronic) Diabetes mellitus (Chronic) Near syncope (Acute) CAD (coronary artery disease) (Chronic) Carotid artery stenosis (Chronic) Vital Signs Temp Pulse Resp BP Pulse Ox 97.2 F L 68 17 156/71 H 96 08/02/20 14:27 08/02/20 14:27 08/02/20 14:27 08/02/20 14:27 08/02/20 14:27 Oxygen Delivery Method Room Air Weight: 91.217 kg Body Mass Index (BMI) 27.2 Sodium 138 mmol/L (136-145) 08/01/20 04:35 Potassium 3.6 mmol/L (3.5-5.1) 08/01/20 04:35 Chloride 105 mmol/L (98-107) 08/01/20 04:35 Carbon Dioxide 25.0 mmol/L (21.0-32.0) 08/01/20 04:35 Anion Gap 8 (5-15) 08/01/20 04:35 BUN 21 mg/dL (7-18) H 08/01/20 04:35 Creatinine 0.97 mg/dL (0.70-1.30) 08/01/20 04:35 Est GFR (MDRD) Af Amer 96 mL/min (>60) 08/01/20 04:35 Est GFR (MDRD) Non-Af 79 mL/min (>60) 08/01/20 04:35 BUN/Creatinine Ratio 21.6 RATIO (10-20) H 08/01/20 04:35 Glucose 117 mg/dL (74-106) H 08/01/20 04:35 Assessment/Plan: Psychotropic Medications: Unnecessary Medications: Bowel Regimen: - Provider Comments Provider responsibility: Provider responsible to enter orders to implement recommendations Provider Comments to Recommendations by Pharmacy: Agree
[2020-08-02 16:56] LABS: Bedside Glucose 165 mg/dL (70-110)
[2020-08-02] MEDS: Insulin Human 75/25 Kwickpen 10 UNIT SC (17:37)
[2020-08-02 20:36] LABS: Bedside Glucose 197 mg/dL (70-110)
[2020-08-03] VITALS (7 sets, daily range): BP systolic 150–153; BP diastolic 74–93; PULSE 74–91; RESP 18–24; TEMP 36.9–37.2; O2SAT 88–98
[2020-08-03] MEDS: Ciprofloxacin 0.3% 2.5ml Bottle 1 DRP RIGHT EYE ×6 (03:14→21:38)
--- NOTE | 2020-08-03 03:44 | NURSING ---
In to assist patient with urinal. Patient c/o having a cough with sore throat. Patient vital signs BP 150/93 P 91 R 22 T 98.4 Temporal O2 88 on Room air, Patient placed on 2 L of O2 at this time. Patient now 93 on 3 L O2.
[2020-08-03 05:51] LABS: Erythrocyte Sedimentation Rate 60 mm/hr (0-20)
[2020-08-03 05:55] LABS: AST(SGOT) 20 U/L (15-37); Alanine Aminotransfer ALT/SGPT 22 U/L (16-61); Albumin, Serum 2.2 g/dL (3.2-5.0); Alkaline Phosphatase 82 U/L (45-117); Bilirubin, Direct 0.25 mg/dL (0.00-0.30); Globulin 4.3 g/dL (2.2-4.2); Protein, Total 6.5 g/dL (6.4-8.2)
[2020-08-03] MEDS: Enoxaparin 40 MG/0.4 ML Syringe SC (06:25)
[2020-08-03] MEDS: Montelukast 10 MG Tablet PO (06:26)
[2020-08-03] MEDS: Pantoprazole Sodium 40 MG Tablet PO (06:26)
[2020-08-03] MEDS: Losartan Potassium 25 MG Tablet PO (06:26)
[2020-08-03] MEDS: Metoprolol(XL)Succ 25 MG Tablet 12.5 MG PO (06:26)
[2020-08-03] MEDS: Ascorbic Acid 500 MG Tablet 1000 MG PO (06:29)
[2020-08-03 08:33] LABS: Bedside Glucose 155 mg/dL (70-110)
[2020-08-03] MEDS: Aspirin E.C. 81 MG Tablet PO (08:40)
[2020-08-03] MEDS: Insulin Human 75/25 Kwickpen 20 UNIT SC (08:40)
[2020-08-03 08:56] LABS: Absolute Lymphocyte Count 0.96 X10^3/uL (0.83-4.51); Absolute Neutrophil Count 12.8 X10^3/uL (2.0-7.7); Basophil# 0.09 X10^3/uL; Basophil% 0.6 % (0-1); Eosinophil# 0.28 X10^3/uL; Eosinophils% 1.8 % (0-5); Hematocrit 35.7 % (40-54); Hemoglobin 11.2 g/dL (13.0-16.5); Lymphocyte # 0.96 X10^3/ul (4.0); Lymphocyte % 6.3 % (19-41); Mean Corp Hgb Conc 31.4 g/dL (32-36); Mean Corpuscular Volume 92.5 fL (80-94); Mean Platelet Vol. 10.5 fl (6.2-12.0); Monocyte# 1.02 X10^3/uL; Monocyte% 6.7 % (0-10); NRBC Flagged by Analyzer 0 % (0-5); Neutrophil # 12.76 X10^3/uL (2.7-7.7); Neutrophil % 83.4 % (47-70); Platelet Count 453 K/mm3 (150-450); RBC Distribution Width CV 14.5 % (11.6-14.6); RBC Distribution Width SD 48.1 fl (35.1-43.9); Red Blood Count 3.86 M/mm3 (4.6-6.2); White Blood Count 15.3 K/mm3 (4.4-11.0)
[2020-08-03 09:14] LABS: Anion Gap 7 (5-15); BUN 16 mg/dL (7-18); BUN/Creat Ratio 17.5 RATIO (10-20); Calcium,Total 8.5 mg/dL (8.5-10.1); Chloride 107 mmol/L (98-107); Creatinine, Serum 0.92 mg/dL (0.70-1.30); EST Glomerular Filtration Rate 85 mL/min (>60); Est Glom Filt Rate - Afr Amer 103 mL/min (>60); Estimated Creatinine Clearance 71.46 ml/min; Glucose 219 mg/dL (74-106); Sodium Level 139 mmol/L (136-145)
--- NOTE | 2020-08-03 09:48 | NURSING ---
dr staples ordered chest xray, labs, covid & resp panel swabs. pt with moist prod cough, but pt states he has had this for months, not new. seen several doctors & pt was taking mucinex for sputum. dr staples notified, new order mucinex 600mg BID.
--- NOTE | 2020-08-03 10:03 | RAD_ITS ---
STUDY: X-RAY CHEST REASON FOR EXAM: Male, 80 years old. COUGH TECHNIQUE: AP and lateral views of the chest. COMPARISON: Comparison is made with prior examination dated 07/30/2020. FINDINGS: EKG electrodes are seen. A right-sided PICC line catheter is in situ with the tip at the junction of superior vena cava and right atrium. Since prior study, there has been progressive infiltrates in both lungs worse in the left lower lobe. Blunting of both cosmetic angles. Sternal cerclage wires and vascular clips are present from a prior sternotomy and coronary artery bypass graft procedure (CABG). Normal mediastinum and pretty. Normal visualized pulmonary arteries. Normal visualized aortic arch and descending thoracic aorta. There are diffuse degenerative changes of the visualized thoracic spine. Normal visualized ribs, clavicles, and shoulders. There is no demonstrated abnormality of the visualized soft tissue structures of the upper abdomen. RAD/Chest PA and Lateral IMPRESSION: Progressive bilateral pulmonary infiltrates worse at the left lung base with small bilateral pleural effusions worse on the left side. Electronically Signed: Parker Solorzano, at 10:24 EST , Service support ,
[2020-08-03 11:01] LABS: Bedside Glucose 151 mg/dL (70-110)
[2020-08-03] MEDS: levoFLOXacin IV 750 MG/150 ML BAG 100 MG IV (16:19)
[2020-08-03 16:40] LABS: Bedside Glucose 166 mg/dL (70-110)
--- NOTE | 2020-08-03 17:31 | NURSING ---
Patient's daughter updated on current status. Appreciative of call and update.
[2020-08-03] MEDS: guaiFENesin 600 MG Tablet PO (17:35)
[2020-08-03] MEDS: Insulin Human 75/25 Kwickpen 10 UNIT SC (18:15)
[2020-08-03] MEDS: Albuterol 2.5 MG/3 ML VIAL.NEB. INHALATION (18:39)
[2020-08-03] MEDS: Ipratropium/Albuterol Sulfate 3 ML AMPUL.NEB INHALATION (20:25)
[2020-08-03 21:36] LABS: Bedside Glucose 127 mg/dL (70-110)
[2020-08-03] MEDS: 0.9% Saline Lock 10 ML Syringe IV (21:50)
[2020-08-04 06:18] VITALS: BP 166/73; PULSE 84; RESP 22; TEMP 36.6; O2SAT 96
[2020-08-04] MEDS: Ciprofloxacin 0.3% 2.5ml Bottle 1 DRP RIGHT EYE ×5 (06:20→20:46)
[2020-08-04] MEDS: Pantoprazole Sodium 40 MG Tablet PO (06:22)
[2020-08-04] MEDS: guaiFENesin 600 MG Tablet PO ×2 (06:22→17:58)
[2020-08-04] MEDS: Ascorbic Acid 500 MG Tablet 1000 MG PO (06:22)
[2020-08-04] MEDS: Montelukast 10 MG Tablet PO (06:22)
[2020-08-04] MEDS: Losartan Potassium 25 MG Tablet PO (06:22)
[2020-08-04 06:23] VITALS: PULSE 84
[2020-08-04] MEDS: Enoxaparin 40 MG/0.4 ML Syringe SC (06:23)
[2020-08-04] MEDS: Metoprolol(XL)Succ 25 MG Tablet 12.5 MG PO (06:23)
[2020-08-04 06:25] LABS: Bedside Glucose 125 mg/dL (70-110)
[2020-08-04 07:48] LABS: Erythrocyte Sedimentation Rate 61 mm/hr (0-20)
[2020-08-04 08:01] LABS: AST(SGOT) 20 U/L (15-37); Alanine Aminotransfer ALT/SGPT 22 U/L (16-61); Alkaline Phosphatase 76 U/L (45-117); Bilirubin, Direct 0.27 mg/dL (0.00-0.30); Globulin 4.3 g/dL (2.2-4.2); Protein, Total 6.3 g/dL (6.4-8.2)
[2020-08-04] MEDS: Insulin Human 75/25 Kwickpen 20 UNIT SC (08:02)
[2020-08-04] MEDS: Aspirin E.C. 81 MG Tablet PO (08:03)
[2020-08-04] MEDS: 0.9% Saline Lock 10 ML Syringe IV ×2 (10:20→20:49)
[2020-08-04] MEDS: levoFLOXacin IV 750 MG/150 ML BAG 100 MG IV (10:21)
[2020-08-04] MEDS: Albuterol 2.5 MG/3 ML VIAL.NEB. INHALATION (10:30)
[2020-08-04 10:41] VITALS: PULSE 58; RESP 18
[2020-08-04 11:21] LABS: Bedside Glucose 85 mg/dL (70-110)
[2020-08-04 16:40] LABS: Bedside Glucose 106 mg/dL (70-110)
[2020-08-04 19:35] VITALS: BP 152/78; PULSE 72; RESP 20; TEMP 36.5; O2SAT 97
[2020-08-04 21:36] LABS: Bedside Glucose 206 mg/dL (70-110)
[2020-08-04] MEDS: Acetaminophen 500 MG Tablet 1000 MG PO (23:40)
[2020-08-05] VITALS (8 sets, daily range): BP systolic 152–161; BP diastolic 70–78; PULSE 57–103; RESP 16–22; TEMP 36.5–36.7; O2SAT 92–98
[2020-08-05] MEDS: Ciprofloxacin 0.3% 2.5ml Bottle 1 DRP RIGHT EYE ×5 (06:11→21:08)
[2020-08-05] MEDS: Ascorbic Acid 500 MG Tablet 1000 MG PO (06:11)
[2020-08-05] MEDS: Metoprolol(XL)Succ 25 MG Tablet 12.5 MG PO (06:12)
[2020-08-05] MEDS: Losartan Potassium 25 MG Tablet PO (06:12)
[2020-08-05] MEDS: Pantoprazole Sodium 40 MG Tablet PO (06:12)
[2020-08-05] MEDS: Senna/Docusate Sodium 1 Tablet PO ×2 (06:12→17:22)
[2020-08-05] MEDS: guaiFENesin 600 MG Tablet PO ×2 (06:12→17:22)
[2020-08-05] MEDS: Montelukast 10 MG Tablet PO (06:13)
[2020-08-05] MEDS: Enoxaparin 40 MG/0.4 ML Syringe SC (06:14)
[2020-08-05 06:36] LABS: Bedside Glucose 160 mg/dL (70-110)
[2020-08-05 06:56] LABS: Erythrocyte Sedimentation Rate 74 mm/hr (0-20)
[2020-08-05 07:31] LABS: AST(SGOT) 27 U/L (15-37); Alanine Aminotransfer ALT/SGPT 20 U/L (16-61); Albumin, Serum 2.1 g/dL (3.2-5.0); Alkaline Phosphatase 80 U/L (45-117); Bilirubin, Direct 0.28 mg/dL (0.00-0.30); Globulin 4.5 g/dL (2.2-4.2); Protein, Total 6.6 g/dL (6.4-8.2)
[2020-08-05] MEDS: Aspirin E.C. 81 MG Tablet PO (08:04)
[2020-08-05] MEDS: Insulin Human 75/25 Kwickpen 20 UNIT SC (08:04)
[2020-08-05] MEDS: 0.9% Saline Lock 10 ML Syringe IV ×2 (10:22→21:08)
[2020-08-05] MEDS: levoFLOXacin IV 750 MG/150 ML BAG 100 MG IV (10:22)
[2020-08-05 11:26] LABS: Bedside Glucose 185 mg/dL (70-110)
[2020-08-05 16:50] LABS: Bedside Glucose 201 mg/dL (70-110)
[2020-08-05] MEDS: Albuterol 2.5 MG/3 ML VIAL.NEB. INHALATION ×2 (17:25→21:02)
[2020-08-05] MEDS: Insulin Human 75/25 Kwickpen 10 UNIT SC (18:09)
[2020-08-05 21:25] LABS: Bedside Glucose 168 mg/dL (70-110)
[2020-08-06] VITALS (7 sets, daily range): BP systolic 128–150; BP diastolic 63–83; PULSE 68–90; RESP 16–24; TEMP 36.3–36.8; O2SAT 89–97
[2020-08-06] MEDS: Ciprofloxacin 0.3% 2.5ml Bottle 1 DRP RIGHT EYE ×6 (01:52→21:40)
[2020-08-06] MEDS: Albuterol 2.5 MG/3 ML VIAL.NEB. INHALATION ×2 (02:39→08:30)
[2020-08-06] MEDS: 0.9% Saline Lock 10 ML Syringe IV ×4 (05:33→21:37)
[2020-08-06] MEDS: Pantoprazole Sodium 40 MG Tablet PO (05:37)
[2020-08-06] MEDS: Senna/Docusate Sodium 1 Tablet PO ×2 (05:38→17:35)
[2020-08-06] MEDS: Metoprolol(XL)Succ 25 MG Tablet 12.5 MG PO (05:38)
[2020-08-06] MEDS: Ascorbic Acid 500 MG Tablet 1000 MG PO (05:38)
[2020-08-06] MEDS: guaiFENesin 600 MG Tablet PO ×2 (05:38→17:36)
[2020-08-06] MEDS: Losartan Potassium 25 MG Tablet PO (05:38)
[2020-08-06] MEDS: Montelukast 10 MG Tablet PO (05:38)
[2020-08-06] MEDS: Enoxaparin 40 MG/0.4 ML Syringe SC (05:42)
[2020-08-06 05:48] LABS: Erythrocyte Sedimentation Rate 63 mm/hr (0-20)
[2020-08-06 06:00] LABS: AST(SGOT) 23 U/L (15-37); Alanine Aminotransfer ALT/SGPT 20 U/L (16-61); Alkaline Phosphatase 70 U/L (45-117); Bilirubin, Direct 0.28 mg/dL (0.00-0.30); Globulin 4.2 g/dL (2.2-4.2); Protein, Total 6.2 g/dL (6.4-8.2)
[2020-08-06 06:35] LABS: Bedside Glucose 127 mg/dL (70-110)
[2020-08-06] MEDS: Insulin Human 75/25 Kwickpen 20 UNIT SC (07:56)
[2020-08-06] MEDS: Aspirin E.C. 81 MG Tablet PO (07:56)
[2020-08-06] MEDS: levoFLOXacin IV 750 MG/150 ML BAG 100 MG IV (10:30)
[2020-08-06 11:15] LABS: Bedside Glucose 208 mg/dL (70-110)
--- NOTE | 2020-08-06 16:05 | PN.ID_ITS ---
Patient Problems: Active and Suspected Problems (Last Updated 07/30/20 @ 13:[address] Fly Taylor MD) Debility (Acute) Multiple falls (Acute) Elevated troponin (Acute) Osteomyelitis of great toe of right foot (Acute) Near syncope (Acute) Subjective: Some dyspnea, feeling ok, no fever, no n/v/d. - Physical Exam Vitals/I&O's: Vital Signs Temp Pulse Resp BP Pulse Ox 97.4 F L 83 24 H 150/79 H 97 08/06/20 14:36 08/06/20 14:36 08/06/20 14:36 08/06/20 14:36 08/06/20 14:36 Oxygen Flow Rate (L/min) 1 Oxygen Delivery Method Nasal Cannula Weight: 91.217 kg Body Mass Index (BMI) 27.2 Intake and Output for Last 24 Hours 08/04/20 08/05/20 08/06/20 23:59 23:59 23:59 Intake Total 906 / 906 766 / 766 721.5 / 721.5 Balance 906 / 906 766 / 766 721.5 / 721.5 General: Alert, Cooperative, No apparent distress Lungs: Clear to auscultation, Normal air movement Cardiovascular: Regular rate, Regular Rhythm Abdomen: Soft, Non Tender, Non-Distended Skin: No rashes Microbiology Past 72 Hours 08/06/20 11:45 Nasal Secretion SARS-CoV-2 Antigen (Rapid) - Final 08/05/20 06:00 Sputum, Expectorated/Coughed Gram Stain - Final 08/05/20 06:00 Sputum, Expectorated/Coughed Respiratory Culture - Preliminary Culture exhibits no growth. 08/03/20 08:32 Mucosa - Nasopharyngeal Respiratory Panel (PCR) - Final Laboratory Results 08/05/20 16:41: POC Glucose 201 H 08/05/20 21:05: POC Glucose 168 H 08/06/20 05:25: ESR 63 H 08/06/20 05:25: Total Bilirubin 0.80, Direct Bilirubin 0.28, AST 23, ALT 20, Alkaline Phosphatase 70, Total Protein 6.2 L, Albumin 2.0 L, Globulin 4.2 08/06/20 06:17: POC Glucose 127 H 08/06/20 11:00: POC Glucose 208 H Current Medications Acetaminophen (Acetaminophen 500 Mg Tablet) 1,000 mg PO Q6H PRN PRN PRN Reason: Pain Score 1-10 Last Admin: 08/04/20 23:40 Dose: 1,000 mg Documented by: Albuterol Sulfate (Albuterol 2.5 Mg/3 Ml Vial.Neb.) 2.5 mg INHALATION Q2H PRN PRN PRN Reason: SHORTNESS OF BREATH Last Admin: 08/06/20 08:30 Dose: 2.5 mg Documented by: Ascorbic Acid (Ascorbic Acid 500 Mg Tablet) 1,000 mg PO DAILY [facility] Last Admin: 08/06/20 05:38 Dose: 1,000 mg Documented by: Aspirin (Aspirin E.C. 81 Mg Tablet) 81 mg PO DAILYCM [facility] Last Admin: 08/06/20 07:56 Dose: 81 mg Documented by: Bisacodyl (Bisacodyl 10 Mg Suppository) 10 mg RECTAL DAILY PRN PRN Reason: CONSTIPATION Ciprofloxacin HCl (Ciprofloxacin 0.3% 2.5ml Bottle) 1 drop RIGHT EYE Q4 [facility] Stop: 08/08/20 18:01 Last Admin: 08/06/20 14:51 Dose: 1 drop Documented by: Enoxaparin Sodium (Enoxaparin 40 Mg/0.4 Ml Syringe) 40 mg SC DAILY@0600 [facility] Last Admin: 08/06/20 05:42 Dose: 40 mg Documented by: Guaifenesin (Guaifenesin 600 Mg Tablet) 600 mg PO BID [facility] Last Admin: 08/06/20 05:38 Dose: 600 mg Documented by: Heparin Sodium (Beef Lung) (Heparin Pf Lock 10 Units/Ml 50 Units/5 Ml Syringe) 50 units IV UD PRN PRN Reason: PICC Line Heparin Flush Last Admin: 08/03/20 07:34 Dose: 50 units Documented by: Sodium Chloride () 250 mls @ 15 mls/hr IV .[id number] PRN PRN Reason: Saline Flush Last Infusion: 08/06/20 06:41 Dose: 0 mls/hr Documented by: Sodium Chloride () 250 mls @ 15 mls/hr IV .[id number] PRN PRN Reason: Additional IVPB Infusion Ampicillin Sodium/Sulbactam (Sodium 3 gm/ Sodium Chloride) 112 mls @ 150 mls/hr IV Q8 [facility] Stop: 09/04/20 18:01 Last Infusion: 08/06/20 15:45 Dose: Infused Documented by: Levofloxacin (Levaquin Iv) 750 mg in 150 mls @ 100 mls/hr IV Q24 [facility] Stop: 08/11/20 10:01 Last Admin: 08/06/20 10:30 Dose: 100 mls/hr Documented by: Insulin Lispro Protam/Lispro Human (Insulin Human 75/25 [place]) 20 unit SC BREAKFAST [facility] Last Admin: 08/06/20 07:56 Dose: 20 units Documented by: Insulin Lispro Protam/Lispro Human (Insulin Human 75/25 [place]) 10 unit SC DINNER [facility] Last Admin: 08/05/20 18:09 Dose: 10 units Documented by: Losartan Potassium (Losartan Potassium 25 Mg Tablet) 25 mg PO DAILY [facility] Last Admin: 08/06/20 05:38 Dose: 25 mg Documented by: Magnesium Hydroxide (Magnesium Hydroxide 30 Ml Udc) 30 ml PO DAILY PRN PRN Reason: Constipation Metoprolol Succinate (Metoprolol(Xl)Succ 25 Mg Tablet) 12.5 mg PO DAILY [facility] Last Admin: 08/06/20 05:38 Dose: 12.5 mg Documented by: Montelukast Sodium (Montelukast 10 Mg Tablet) 10 mg PO DAILY [facility] Last Admin: 08/06/20 05:38 Dose: 10 mg Documented by: Pantoprazole Sodium (Pantoprazole Sodium 40 Mg Tablet) 40 mg PO DAILY [facility] Last Admin: 08/06/20 05:37 Dose: 40 mg Documented by: Polyethylene Glycol (Polyethylene Glycol 3350 17 Gm Packet) 17 gm PO DAILY [facility] Last Admin: 08/06/20 05:38 Dose: Not Given Documented by: Senna/Docusate Sodium (Senna/Docusate Sodium 1 Tablet) 1 tablet PO BID [facility] Last Admin: 08/06/20 05:38 Dose: 1 tablet Documented by: Sodium Chloride (0.9% Saline Lock 10 Ml Syringe) 10 - 40 ml IV UD PRN PRN Reason: Open End PICC Flush Last Admin: 08/06/20 14:51 Dose: 20 ml Documented by: Sodium Chloride (0.9 % Nacl (Sterile) Posiflush 10 Ml) 10 - 40 ml IV UD PRN PRN Reason: Port access or dressing change Tuberculin PPD (Tuberculin,Purif.Prot.Deriv. 50 Tu/Ml Vial) 5 tu ID X1 ONE Stop: 08/08/20 10:01 Medical Necessity - Tobacco Use Smoking Status: Never smoker Tobacco Use: Non-smoker Route of nutrition/ use of supplements: [] Nutritional Intake: [] IV Site: [] Rosenberg Catheter: [] - Assessment/Plan Antibiotics: [] Assessment/Plan: [] Active and Suspected Problems (Last Updated 07/30/20 @ 13:[address] 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 Raven garvey so far. Poor bloodflow, angio done and no intervention able to be performed. Cx with MSSA and anaerobes. Has picc, on unasyn. Stop date 09/04/20. CXR and hypoxia worsened, levaquin added for empiric pneumonia coverage. Will follow
[2020-08-06] MEDS: Acetaminophen 500 MG Tablet 1000 MG PO (16:10)
[2020-08-06 17:15] LABS: Bedside Glucose 167 mg/dL (70-110)
[2020-08-06] MEDS: Insulin Human 75/25 Kwickpen 10 UNIT SC (17:34)
[2020-08-06 21:31] LABS: Bedside Glucose 175 mg/dL (70-110)
[2020-08-07] VITALS (8 sets, daily range): BP systolic 144–158; BP diastolic 82–84; PULSE 67–90; RESP 16–28; TEMP 36.7–36.8; O2SAT 92–96
[2020-08-07] MEDS: Enoxaparin 40 MG/0.4 ML Syringe SC (05:02)
[2020-08-07] MEDS: Ciprofloxacin 0.3% 2.5ml Bottle 1 DRP RIGHT EYE ×5 (05:06→21:15)
[2020-08-07] MEDS: 0.9% Saline Lock 10 ML Syringe IV ×3 (05:06→13:59)
[2020-08-07] MEDS: Losartan Potassium 25 MG Tablet PO (05:07)
[2020-08-07] MEDS: guaiFENesin 600 MG Tablet PO ×2 (05:07→18:09)
[2020-08-07] MEDS: Metoprolol(XL)Succ 25 MG Tablet 12.5 MG PO (05:07)
[2020-08-07] MEDS: Montelukast 10 MG Tablet PO (05:08)
[2020-08-07] MEDS: Senna/Docusate Sodium 1 Tablet PO ×2 (05:08→18:09)
[2020-08-07] MEDS: Pantoprazole Sodium 40 MG Tablet PO (05:08)
[2020-08-07] MEDS: Ascorbic Acid 500 MG Tablet 1000 MG PO (05:08)
[2020-08-07] MEDS: Povidone-Iodine Swabstick 1 PACKET TOPICAL (05:09)
[2020-08-07 05:51] LABS: Erythrocyte Sedimentation Rate 53 mm/hr (0-20)
[2020-08-07 06:05] LABS: AST(SGOT) 24 U/L (15-37); Alanine Aminotransfer ALT/SGPT 19 U/L (16-61); Alkaline Phosphatase 68 U/L (45-117); Bilirubin, Direct 0.31 mg/dL (0.00-0.30); Globulin 4.6 g/dL (2.2-4.2); Protein, Total 6.6 g/dL (6.4-8.2)
[2020-08-07 06:15] LABS: Bedside Glucose 167 mg/dL (70-110)
[2020-08-07] MEDS: Insulin Human 75/25 Kwickpen 20 UNIT SC (08:04)
[2020-08-07] MEDS: Aspirin E.C. 81 MG Tablet PO (08:05)
[2020-08-07] MEDS: Albuterol 2.5 MG/3 ML VIAL.NEB. INHALATION ×4 (08:50→23:22)
[2020-08-07] MEDS: levoFLOXacin IV 750 MG/150 ML BAG 100 MG IV (10:18)
[2020-08-07 10:46] LABS: Bedside Glucose 157 mg/dL (70-110)
[2020-08-07 16:15] LABS: Bedside Glucose 197 mg/dL (70-110)
[2020-08-07] MEDS: Insulin Human 75/25 Kwickpen 10 UNIT SC (18:07)
[2020-08-07 21:25] LABS: Bedside Glucose 138 mg/dL (70-110)
[2020-08-08] MEDS: Ciprofloxacin 0.3% 2.5ml Bottle 1 DRP RIGHT EYE ×5 (01:47→17:24)
[2020-08-08 05:42] VITALS: BP 159/72; PULSE 83; RESP 22; TEMP 36.9; O2SAT 95
[2020-08-08] MEDS: Metoprolol(XL)Succ 25 MG Tablet 12.5 MG PO (05:42)
[2020-08-08 05:45] LABS: Absolute Lymphocyte Count 0.79 X10^3/uL (0.83-4.51); Absolute Neutrophil Count 8.8 X10^3/uL (2.0-7.7); Basophil# 0.06 X10^3/uL; Basophil% 0.5 % (0-1); Eosinophil# 0.56 X10^3/uL; Eosinophils% 4.9 % (0-5); Hematocrit 32.3 % (40-54); Hemoglobin 10.3 g/dL (13.0-16.5); Lymphocyte # 0.79 X10^3/ul (4.0); Lymphocyte % 6.9 % (19-41); Mean Corp Hgb Conc 31.9 g/dL (32-36); Mean Corpuscular Hgb 29.7 pg (27.0-32.0); Mean Corpuscular Volume 93.1 fL (80-94); Mean Platelet Vol. 10.6 fl (6.2-12.0); Monocyte# 1.07 X10^3/uL; Monocyte% 9.4 % (0-10); NRBC Flagged by Analyzer 0 % (0-5); Neutrophil # 8.83 X10^3/uL (2.7-7.7); Neutrophil % 77.5 % (47-70); Platelet Count 349 K/mm3 (150-450); RBC Distribution Width CV 14.2 % (11.6-14.6); RBC Distribution Width SD 47.9 fl (35.1-43.9); Red Blood Count 3.47 M/mm3 (4.6-6.2); White Blood Count 11.4 K/mm3 (4.4-11.0)
[2020-08-08] MEDS: Losartan Potassium 25 MG Tablet PO (05:45)
[2020-08-08] MEDS: guaiFENesin 600 MG Tablet PO ×2 (05:46→17:25)
[2020-08-08] MEDS: Montelukast 10 MG Tablet PO (05:46)
[2020-08-08] MEDS: Pantoprazole Sodium 40 MG Tablet PO (05:47)
[2020-08-08] MEDS: Enoxaparin 40 MG/0.4 ML Syringe SC (05:52)
[2020-08-08 06:08] LABS: AST(SGOT) 20 U/L (15-37); Alanine Aminotransfer ALT/SGPT 18 U/L (16-61); Albumin, Serum 1.9 g/dL (3.2-5.0); Alkaline Phosphatase 66 U/L (45-117); Anion Gap 4 (5-15); BUN 14 mg/dL (7-18); BUN/Creat Ratio 16.9 RATIO (10-20); Bilirubin, Direct 0.27 mg/dL (0.00-0.30); Calcium,Total 8.3 mg/dL (8.5-10.1); Chloride 103 mmol/L (98-107); Creatinine, Serum 0.83 mg/dL (0.70-1.30); EST Glomerular Filtration Rate 95 mL/min (>60); Est Glom Filt Rate - Afr Amer 115 mL/min (>60); Estimated Creatinine Clearance 79.21 ml/min; Globulin 4.5 g/dL (2.2-4.2); Glucose 124 mg/dL (74-106); Potassium 3.9 mmol/L (3.5-5.1); Protein, Total 6.4 g/dL (6.4-8.2); Sodium Level 137 mmol/L (136-145)
[2020-08-08 06:21] LABS: Bedside Glucose 131 mg/dL (70-110)
[2020-08-08] MEDS: Aspirin E.C. 81 MG Tablet PO (08:24)
[2020-08-08] MEDS: Insulin Human 75/25 Kwickpen 20 UNIT SC (08:24)
[2020-08-08] MEDS: Tuberculin,Purif.prot.deriv. 50 TU/ML Vial 5 ML ID (10:19)
[2020-08-08] MEDS: 0.9% Saline Lock 10 ML Syringe IV ×4 (10:19→21:11)
[2020-08-08] MEDS: levoFLOXacin IV 750 MG/150 ML BAG 100 MG IV (10:25)
[2020-08-08 10:41] LABS: Bedside Glucose 147 mg/dL (70-110)
--- NOTE | 2020-08-08 11:49 | NURSING ---
R' REQUESTED TO THERAPY FOR OFFLOADING SHOE IF OKAY WITH DR. PAZ. CALLED DR. PAZ'S OFFICE AND SPOKE WITH ABBI. SHE WILL ASK DR PAZ AND CALL BACK. NOTIFIED HER THAT R' IS NOT WALKING, BUT TRANSITIONING ONLY D/T WEIGHTBEARING STATUS.
--- NOTE | 2020-08-08 12:37 | NURSING ---
R' UNABLE TO VOID. C/O DISCOMFORT TO BLADDER. BLADDER SCANNED FOR 389CC. UPDATED DR. HARPER. STRAIGHT CATH AT THIS TIME FOR RELIEF. START FLOMAX DAILY AND BLADDER SCAN PRN.
[2020-08-08] MEDS: Albuterol 2.5 MG/3 ML VIAL.NEB. INHALATION (12:45)
--- NOTE | 2020-08-08 13:23 | NURSING ---
STRAIGHT CATH'D FOR 400CC CLEAR, FABRICIO URINE. URINE HAD STRONG/FOUL ODOR. C/O SLIGHT BURNING. DR HARPER WAS NOTIFIED BY Rolando ENGLAND. ORDER FOR UA C+S.
[2020-08-08 13:30] VITALS: PULSE 83; RESP 28; O2SAT 92
[2020-08-08 13:32] LABS: Bacteria 0 SEEN /hpf (None Seen); Mucous, Urine 0 SEEN /hpf (<or=2+); Red Blood Cells-Urine 0 SEEN /hpf (0-5); Squamous Epithelial Cells - UA 0 SEEN /hpf (0-5); White Blood Cells 0 SEEN /hpf (0-5)
[2020-08-08 13:46] LABS: Color, Urine Yellow (Yellow); Glucose, Dipstick Normal (Normal); Ketone-Dipstick Negative (Negative); Leukocyte Esterase-Dipstick Negative /ul (Negative); Nitrite-Dipstick Negative (Negative); Occult Blood-Urine Negative /ul (Negative); Protein-Dipstick 100 mg/dl (Negative); Urine Bilirubin Dipstick Negative (Negative); Urine Clarity Clear (Clear); Urine Urobilinogen Normal (Normal)
--- NOTE | 2020-08-08 13:52 | CPS ---
patient was on 1L and weaned to room air
[2020-08-08 13:55] VITALS: BP 164/75; PULSE 91; RESP 25; TEMP 36.4; O2SAT 92
[2020-08-08] MEDS: Alteplase 2 MG/2 ML Vial IV (14:46)
--- NOTE | 2020-08-08 15:18 | CASEMGMT ---
Social Work IDT met with patient, dtr and son via conference call for care plan meeting. Discussed patient's progress in therapy. Pt is mod for bed mobility, SPT modx2 with FWW, not ambulating. Pt is min for UE ADLs, max for LE ADLs, modx2 for SPT to toilet, dependent x2 for toileting tasks. Pt is very weak, SOB with activity, retropulsive in sitting and standing. Pt is on 1800 calorie cardiac diet, intake 50-100%, receiving Christian, and weight is stable. Pt is out of isolation 08/14, IV ATB until 09/04, and new on O2. Explained Medicare benefit. The goal is for pt to return to home alone; however, pt making limited progress at this time. SW discussed alternative DC plan once IVs are done. Explained at length Medicaid and SNF intermediate care with Part B therapies. Children and pt expressed understanding and agreeable to have alternative plan in place. Emailed [facility] application and SNF list to children. Will continue to follow. Olga Templeton, [employer]ONATHAN [employer] PROGRAM MANAGER
--- NOTE | 2020-08-08 16:15 | NURSING ---
DR GONSALES CHANGED DRESSING TO RT TOE.
--- NOTE | 2020-08-08 16:15 | PCM.PROGNOTE ---
Patient Problems: Active and Suspected Problems (Last Updated 07/30/20 @ 13:[address] Fly Taylor MD) Debility (Acute) Multiple falls (Acute) Elevated troponin (Acute) Osteomyelitis of great toe of right foot (Acute) Near syncope (Acute) Subjective: The patient is a 80 year old gentleman was seen today for follow up on right great toe. Patient is resting comfortably in bed, no complaints, no complaints of fever, chills, nausea or vomiting. He denies toe pain at this time. - Physical Exam Vitals/I&O's: Vital Signs Temp Pulse Resp BP Pulse Ox 97.6 F L 91 25 H 164/75 H 92 08/08/20 13:55 08/08/20 13:55 08/08/20 13:55 08/08/20 13:55 08/08/20 13:55 Oxygen Flow Rate (L/min) 1 Oxygen Delivery Method Nasal Cannula Weight: 89.868 kg Body Mass Index (BMI) 27.2 Intake and Output for Last 24 Hours 08/06/20 08/07/20 08/08/20 23:59 23:59 23:59 Intake Total 1103.5 / 1103.5 1661.00 / 1661.00 914 / 914 Output Total 400 / 400 Balance 1103.5 / 1103.5 1661.00 / 1661.00 514 / 514 General: Alert, Oriented x3, Cooperative HEENT: Atraumatic Extremities: No Calf Tenderness, Diminished Peripheral Pulses Skin: Ulcer/ Wound - Dry eschar to distal hallux and dorsal hallux that is well adhered. No bogginess or fluctuance. No purulence on expression. No erythema, streaking, odor. His adjacent skin is hairless and atrophic. Musculoskeletal: No Tenderness to Palpation of Joints or Extremities, Muscle Wasting, - - Compartment soft to palpate. Active range of motion toes right foot Psych/Mental Status: Normal Affect, Appropriate Microbiology Past 72 Hours 08/05/20 06:00 Sputum, Expectorated/Coughed Gram Stain - Final 08/05/20 06:00 Sputum, Expectorated/Coughed Respiratory Culture - Final Culture exhibits no growth. 08/06/20 11:45 Nasal Secretion SARS-CoV-2 Antigen (Rapid) - Final Laboratory Results 08/07/20 16:11: POC Glucose 197 H 08/07/20 21:20: POC Glucose 138 H 08/08/20 05:25: WBC 11.4 H, RBC 3.47 L, Hgb 10.3 L, Hct 32.3 L, MCV 93.1, MCH 29.7, MCHC 31.9 L, RDW Std Deviation 47.9 H, RDW Coeff of Sacha 14.2, Plt Count 349, MPV 10.6, Immature Gran % (Auto) 0.800, Neut % (Auto) 77.5 H, Lymph % (Auto) 6.9 L, [place]ade % (Auto) 9.4, Eos % (Auto) 4.9, Baso % (Auto) 0.5, Absolute Neuts (auto) 8.8 H, Absolute Lymphs (auto) 0.79 L, Nucleated RBC % 0 08/08/20 05:25: Sodium 137, Potassium 3.9, Chloride 103, Carbon Dioxide 30.0, Anion Gap 4 L, BUN 14, Creatinine 0.83, Estim Creat Clear Calc 79.21, Est GFR (MDRD) Af Amer 115, Est GFR (MDRD) Non-Af 95, BUN/Creatinine Ratio 16.9, Glucose 124 H, Calcium 8.3 L, Total Bilirubin 0.60, Direct Bilirubin 0.27, AST 20, ALT 18, Alkaline Phosphatase 66, Total Protein 6.4, Albumin 1.9 L, Globulin 4.5 H 08/08/20 06:13: POC Glucose 131 H 08/08/20 10:33: POC Glucose 147 H 08/08/20 13:15: Urine Color Yellow, Urine Clarity Clear, Urine pH 5.0, Ur Specific [place] 1.020, Urine Protein 100 H, Urine Glucose (UA) Normal, Urine Ketones Negative, Urine Occult Blood Negative, Urine Nitrite Negative, Urine Bilirubin Negative, Urine Urobilinogen Normal, Ur Leukocyte Esterase Negative, Urine RBC 0 SEEN, Urine WBC 0 SEEN, Ur Squamous Epith Cells 0 SEEN, Urine Bacteria 0 SEEN, Urine Mucus 0 SEEN Current Medications Acetaminophen (Acetaminophen 500 Mg Tablet) 1,000 mg PO Q6H PRN PRN PRN Reason: Pain Score 1-10 Last Admin: 08/06/20 16:10 Dose: 1,000 mg Documented by: Albuterol Sulfate (Albuterol 2.5 Mg/3 Ml Vial.Neb.) 2.5 mg INHALATION Q6H.RT [facility] Last Admin: 08/08/20 12:45 Dose: 2.5 mg Documented by: Ascorbic Acid (Ascorbic Acid 500 Mg Tablet) 1,000 mg PO DAILY [facility] Last Admin: 08/08/20 05:57 Dose: Not Given Documented by: Aspirin (Aspirin E.C. 81 Mg Tablet) 81 mg PO DAILYCM [facility] Last Admin: 08/08/20 08:24 Dose: 81 mg Documented by: Bisacodyl (Bisacodyl 10 Mg Suppository) 10 mg RECTAL DAILY PRN PRN Reason: CONSTIPATION Ciprofloxacin HCl (Ciprofloxacin 0.3% 2.5ml Bottle) 1 drop RIGHT EYE Q4 [facility] Stop: 08/08/20 18:01 Last Admin: 08/08/20 12:54 Dose: 1 drop Documented by: Enoxaparin Sodium (Enoxaparin 40 Mg/0.4 Ml Syringe) 40 mg SC DAILY@0600 [facility] Last Admin: 08/08/20 05:52 Dose: 40 mg Documented by: Guaifenesin (Guaifenesin 600 Mg Tablet) 600 mg PO BID [facility] Last Admin: 08/08/20 05:46 Dose: 600 mg Documented by: Heparin Sodium (Beef Lung) (Heparin Pf Lock 10 Units/Ml 50 Units/5 Ml Syringe) 50 units IV UD PRN PRN Reason: PICC Line Heparin Flush Last Admin: 08/03/20 07:34 Dose: 50 units Documented by: Sodium Chloride () 250 mls @ 15 mls/hr IV .[id number] PRN PRN Reason: Saline Flush Last Infusion: 08/07/20 21:54 Dose: 15 mls/hr Documented by: Sodium Chloride () 250 mls @ 15 mls/hr IV .[id number] PRN PRN Reason: Additional IVPB Infusion Ampicillin Sodium/Sulbactam (Sodium 3 gm/ Sodium Chloride) 112 mls @ 150 mls/hr IV Q8 [facility] Stop: 09/04/20 18:01 Last Infusion: 08/08/20 13:50 Dose: Infused Documented by: Levofloxacin (Levaquin Iv) 750 mg in 150 mls @ 100 mls/hr IV Q24 [facility] Stop: 08/11/20 10:01 Last Infusion: 08/08/20 12:15 Dose: Infused Documented by: Insulin Lispro Protam/Lispro Human (Insulin Human 75/25 [place]) 20 unit SC BREAKFAST [facility] Last Admin: 08/08/20 08:24 Dose: 20 units Documented by: Insulin Lispro Protam/Lispro Human (Insulin Human 75/25 [place]) 10 unit SC DINNER [facility] Last Admin: 08/07/20 18:07 Dose: 10 units Documented by: Losartan Potassium (Losartan Potassium 25 Mg Tablet) 25 mg PO DAILY [facility] Last Admin: 08/08/20 05:45 Dose: 25 mg Documented by: Magnesium Hydroxide (Magnesium Hydroxide 30 Ml Udc) 30 ml PO DAILY PRN PRN Reason: Constipation Metoprolol Succinate (Metoprolol(Xl)Succ 25 Mg Tablet) 12.5 mg PO DAILY [facility] Last Admin: 08/08/20 05:42 Dose: 12.5 mg Documented by: Montelukast Sodium (Montelukast 10 Mg Tablet) 10 mg PO DAILY [facility] Last Admin: 08/08/20 05:46 Dose: 10 mg Documented by: Nutritional Formula ([facility]al [facility] (Christian) Packet) [facility] Last Admin: 08/08/20 10:19 Dose: 1 packet Documented by: Pantoprazole Sodium (Pantoprazole Sodium 40 Mg Tablet) 40 mg PO DAILY [facility] Last Admin: 08/08/20 05:47 Dose: 40 mg Documented by: Polyethylene Glycol (Polyethylene Glycol 3350 17 Gm Packet) 17 gm PO DAILY [facility] Last Admin: 08/08/20 05:57 Dose: Not Given Documented by: Povidone Iodine (Povidone-Iodine Swabstick) 0 packet TOPICAL 1000 [facility]; Protocol Senna/Docusate Sodium (Senna/Docusate Sodium 1 Tablet) 1 tablet PO BID [facility] Last Admin: 08/08/20 05:57 Dose: Not Given Documented by: Sodium Chloride (0.9% Saline Lock 10 Ml Syringe) 10 - 40 ml IV UD PRN PRN Reason: Open End PICC Flush Last Admin: 08/08/20 15:35 Dose: 40 ml Documented by: Sodium Chloride (0.9 % Nacl (Sterile) Posiflush 10 Ml) 10 - 40 ml IV UD PRN PRN Reason: Port access or dressing change Tamsulosin HCl (Tamsulosin Hcl 0.4 Mg Capsule) 0.4 mg PO DAILY@1730 [facility] Medical Necessity - Tobacco Use Smoking Status: Never smoker Tobacco Use: Non-smoker Assessment/Plan All Active Problems (Last Updated 07/30/20 @ 13:[address] 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 Reviewed diagnostic data. WBC decreased to 11.4. He is afebrile with vital signs stable. His right hallux dressing was changed and reapplied with Betadine and gauze. The site appears stable. There is a dry eschar to the distal and dorsal aspect of his hallux and this will continue to be monitored for demarcation. Patient understands eventually he may require an amputation. He has significant peripheral vascular disease and intervention is not possible to restore lower extremity perfusion. He is also being treated for osteomyelitis of this hallux. Continue with antibiotic therapy per Infectious Disease/ID service. This includes Unasyn: PICC line placed. His stop date is 09-04-2020. No weightbearing to right forefoot, ok to put weight on right heel for transitions only. Surgical shoe was ordered. Podiatry will continue to follow weekly while in house. Please contact if any concerns or questions. Dasha Bartlett DPM, FACF[facility] [phone]
[2020-08-08] MEDS: Povidone-Iodine Swabstick 1 PACKET TOPICAL (16:19)
[2020-08-08 16:50] LABS: Bedside Glucose 109 mg/dL (70-110)
[2020-08-08] MEDS: Insulin Human 75/25 Kwickpen 10 UNIT SC (17:24)
[2020-08-08] MEDS: Tamsulosin HCl 0.4 MG Capsule PO (17:25)
[2020-08-08 21:16] LABS: Bedside Glucose 133 mg/dL (70-110)
[2020-08-08 22:39] VITALS: O2SAT 98
[2020-08-09 03:56] VITALS: BP 157/77; PULSE 71; RESP 20; TEMP 35.9; O2SAT 95
[2020-08-09] MEDS: 0.9% Saline Lock 10 ML Syringe IV ×3 (05:11→21:27)
[2020-08-09] MEDS: Ascorbic Acid 500 MG Tablet 1000 MG PO (05:15)
[2020-08-09] MEDS: Enoxaparin 40 MG/0.4 ML Syringe SC (05:15)
[2020-08-09 05:16] VITALS: BP 157/77; PULSE 71
[2020-08-09] MEDS: Losartan Potassium 25 MG Tablet PO (05:16)
[2020-08-09] MEDS: Montelukast 10 MG Tablet PO (05:16)
[2020-08-09] MEDS: Pantoprazole Sodium 40 MG Tablet PO (05:16)
[2020-08-09] MEDS: Senna/Docusate Sodium 1 Tablet PO (05:16)
[2020-08-09] MEDS: guaiFENesin 600 MG Tablet PO ×2 (05:16→16:49)
[2020-08-09] MEDS: Metoprolol(XL)Succ 25 MG Tablet 12.5 MG PO (05:16)
[2020-08-09 06:25] LABS: Bedside Glucose 140 mg/dL (70-110)
[2020-08-09 06:55] VITALS: PULSE 85; RESP 20; O2SAT 93
[2020-08-09] MEDS: Albuterol 2.5 MG/3 ML VIAL.NEB. INHALATION ×2 (06:55→13:05)
--- NOTE | 2020-08-09 08:08 | RAD_ITS ---
STUDY: X-RAY CHEST REASON FOR EXAM: Male, 80 years old. Cough, shortness of breath. TECHNIQUE: AP and lateral views of the chest. COMPARISON: Comparison is made with prior study dated 08/03/2020. FINDINGS: A right sided PICC line catheter is in situ. The tip is at the junction of the superior vena cava and right atrium. Since prior study, there has been progressive infiltrates in both lungs. Small bilateral pleural effusions more prominent on the left side. Sternal cerclage wires and vascular clips are present from a prior sternotomy and coronary artery bypass graft procedure (CABG). Normal mediastinum and pretty. Normal visualized pulmonary arteries. Normal visualized aortic arch and descending thoracic aorta. Normal visualized thoracic spine. Normal visualized ribs, clavicles, and shoulders. There is no demonstrated abnormality of the visualized soft tissue structures of the upper abdomen. RAD/Chest PA and Lateral IMPRESSION: Progressive bilateral pulmonary infiltrates with small bilateral effusions worse on the left side. Electronically Signed: Parker Solorzano, at 11:08 EST , Service support ,
--- NOTE | 2020-08-09 08:09 | RAD_ITS ---
STUDY: X-RAY - ABDOMEN/PELVIS REASON FOR EXAM: Male, 80 years old. Constipation. TECHNIQUE: Single AP view of the abdomen / pelvis. COMPARISON: None. FINDINGS: There is a moderate amount of colonic fecal material. The visualized liver, spleen and kidneys are grossly normal in size and morphology. Normal soft tissue structures. There are diffuse degenerative changes of the visualized lumbar spine. RAD/Abdomen Single View IMPRESSION: Moderate amount of fecal material is seen in the colon. Electronically Signed: Parker Solorzano, at 11:07 EST , Service support ,
[2020-08-09] MEDS: Insulin Human 75/25 Kwickpen 20 UNIT SC (08:24)
[2020-08-09] MEDS: Aspirin E.C. 81 MG Tablet PO (08:24)
[2020-08-09 08:57] LABS: Absolute Lymphocyte Count 0.63 X10^3/uL (0.83-4.51); Absolute Neutrophil Count 10.2 X10^3/uL (2.0-7.7); Basophil# 0.07 X10^3/uL; Basophil% 0.6 % (0-1); Eosinophil# 0.37 X10^3/uL; Hematocrit 36.1 % (40-54); Hemoglobin 11.2 g/dL (13.0-16.5); Lymphocyte # 0.63 X10^3/ul (4.0); Lymphocyte % 5.2 % (19-41); Mean Corpuscular Hgb 29.4 pg (27.0-32.0); Mean Corpuscular Volume 94.8 fL (80-94); Mean Platelet Vol. 10.8 fl (6.2-12.0); Monocyte# 0.86 X10^3/uL; NRBC Flagged by Analyzer 0 % (0-5); Neutrophil # 10.22 X10^3/uL (2.7-7.7); Neutrophil % 83.5 % (47-70); Platelet Count 332 K/mm3 (150-450); RBC Distribution Width CV 14.1 % (11.6-14.6); RBC Distribution Width SD 48.7 fl (35.1-43.9); Red Blood Count 3.81 M/mm3 (4.6-6.2); White Blood Count 12.2 K/mm3 (4.4-11.0)
[2020-08-09 09:08] LABS: Anion Gap 3 (5-15); BUN 21 mg/dL (7-18); BUN/Creat Ratio 24.7 RATIO (10-20); Calcium,Total 8.7 mg/dL (8.5-10.1); Chloride 105 mmol/L (98-107); Creatinine, Serum 0.85 mg/dL (0.70-1.30); EST Glomerular Filtration Rate 92 mL/min (>60); Est Glom Filt Rate - Afr Amer 112 mL/min (>60); Estimated Creatinine Clearance 77.35 ml/min; Glucose 179 mg/dL (74-106); Potassium 4.2 mmol/L (3.5-5.1); Sodium Level 138 mmol/L (136-145)
[2020-08-09] MEDS: levoFLOXacin IV 750 MG/150 ML BAG 150 MG IV (10:46)
[2020-08-09 10:56] LABS: Bedside Glucose 142 mg/dL (70-110)
[2020-08-09] MEDS: Povidone-Iodine Swabstick TOPICAL (12:49)
[2020-08-09 13:05] VITALS: PULSE 87; RESP 20
[2020-08-09 13:06] VITALS: BP 152/76; PULSE 81; RESP 20; TEMP 36.2; O2SAT 100
--- NOTE | 2020-08-09 14:46 | NURSING ---
wound photo: right great toe
[2020-08-09 16:35] LABS: Bedside Glucose 140 mg/dL (70-110)
[2020-08-09] MEDS: Tamsulosin HCl 0.4 MG Capsule PO (16:50)
[2020-08-09] MEDS: Insulin Human 75/25 Kwickpen 10 UNIT SC (16:51)
[2020-08-09] MEDS: Magnesium Citrate 300 ML PO (18:45)
[2020-08-09 19:40] VITALS: PULSE 88; RESP 18; O2SAT 98
[2020-08-09] MEDS: Ipratropium/Albuterol Sulfate 3 ML AMPUL.NEB INHALATION (19:54)
[2020-08-09 21:26] LABS: Bedside Glucose 102 mg/dL (70-110)
[2020-08-10] VITALS (7 sets, daily range): BP systolic 140–151; BP diastolic 76–78; PULSE 79–89; RESP 18–21; TEMP 36.4–36.6; O2SAT 91–96
--- NOTE | 2020-08-10 00:19 | NURSING ---
Bladder scanned dt pt attempting to void and unable, bladder scanned for 68 ml, no results yet from mag citrate
[2020-08-10] MEDS: Albuterol 2.5 MG/3 ML VIAL.NEB. INHALATION (03:31)
[2020-08-10] MEDS: Polyethylene Glycol 3350 17 GM PACKET PO (05:09)
[2020-08-10] MEDS: Losartan Potassium 25 MG Tablet PO (05:10)
[2020-08-10] MEDS: Ascorbic Acid 500 MG Tablet 1000 MG PO (05:10)
[2020-08-10] MEDS: Enoxaparin 40 MG/0.4 ML Syringe SC (05:10)
[2020-08-10] MEDS: Metoprolol(XL)Succ 25 MG Tablet 12.5 MG PO (05:10)
[2020-08-10] MEDS: guaiFENesin 600 MG Tablet PO ×2 (05:11→18:10)
[2020-08-10] MEDS: 0.9% Saline Lock 10 ML Syringe IV ×5 (05:11→20:57)
[2020-08-10] MEDS: Senna/Docusate Sodium 1 Tablet PO (05:11)
[2020-08-10] MEDS: Pantoprazole Sodium 40 MG Tablet PO (05:11)
[2020-08-10] MEDS: Montelukast 10 MG Tablet PO (05:11)
[2020-08-10 06:25] LABS: Bedside Glucose 146 mg/dL (70-110)
[2020-08-10] MEDS: Ipratropium/Albuterol Sulfate 3 ML AMPUL.NEB INHALATION ×2 (07:30→13:41)
[2020-08-10] MEDS: Insulin Human 75/25 Kwickpen 20 UNIT SC (08:10)
[2020-08-10] MEDS: Aspirin E.C. 81 MG Tablet PO (08:10)
[2020-08-10] MEDS: levoFLOXacin IV 750 MG/150 ML BAG 100 MG IV (10:37)
[2020-08-10 11:01] LABS: Bedside Glucose 195 mg/dL (70-110)
--- NOTE | 2020-08-10 14:20 | MDS.RN ---
Information for the mds was obtained from review of the clinical record, interview of resident, staff, and direct observation of resident's care.
[2020-08-10 16:30] LABS: Bedside Glucose 149 mg/dL (70-110)
[2020-08-10] MEDS: Tamsulosin HCl 0.4 MG Capsule PO (18:09)
[2020-08-10] MEDS: Povidone-Iodine Swabstick TOPICAL (20:54)
[2020-08-10] MEDS: Insulin Human 75/25 Kwickpen 10 UNIT SC (20:55)
[2020-08-10 21:00] LABS: Bedside Glucose 224 mg/dL (70-110)
[2020-08-11] VITALS (8 sets, daily range): BP systolic 121–128; BP diastolic 63–72; PULSE 58–78; RESP 20–32; TEMP 35.7–36.3; O2SAT 96–99
[2020-08-11] MEDS: Enoxaparin 40 MG/0.4 ML Syringe SC (05:22)
[2020-08-11] MEDS: guaiFENesin 600 MG Tablet PO ×2 (05:22→17:37)
[2020-08-11] MEDS: Ascorbic Acid 500 MG Tablet 1000 MG PO (05:22)
[2020-08-11] MEDS: Montelukast 10 MG Tablet PO (05:23)
[2020-08-11] MEDS: Losartan Potassium 25 MG Tablet PO (05:23)
[2020-08-11] MEDS: Metoprolol(XL)Succ 25 MG Tablet 12.5 MG PO (05:23)
[2020-08-11] MEDS: Pantoprazole Sodium 40 MG Tablet PO (05:23)
[2020-08-11] MEDS: Senna/Docusate Sodium 1 Tablet PO ×2 (05:23→17:36)
[2020-08-11] MEDS: FLUoxetine 10 MG Capsule PO (05:24)
[2020-08-11] MEDS: 0.9% Saline Lock 10 ML Syringe IV ×3 (05:30→14:38)
[2020-08-11] MEDS: Nystatin Powder 15gm Bottle 1 APPLIC TOPICAL ×2 (05:40→17:39)
[2020-08-11] MEDS: Menthol/Lanolin/Calamine/Znox 113 GM Tube 1 APPLIC TOPICAL ×2 (05:41→17:42)
[2020-08-11 06:21] LABS: Bedside Glucose 174 mg/dL (70-110)
[2020-08-11] MEDS: Aspirin E.C. 81 MG Tablet PO (07:47)
[2020-08-11] MEDS: Insulin Human 75/25 Kwickpen 20 UNIT SC (07:49)
[2020-08-11] MEDS: levoFLOXacin IV 750 MG/150 ML BAG 100 MG IV (09:29)
[2020-08-11 11:50] LABS: Bedside Glucose 145 mg/dL (70-110)
[2020-08-11 16:56] LABS: Bedside Glucose 145 mg/dL (70-110)
[2020-08-11] MEDS: Insulin Human 75/25 Kwickpen 10 UNIT SC (17:36)
[2020-08-11] MEDS: Povidone-Iodine Swabstick TOPICAL (17:37)
[2020-08-11] MEDS: Tamsulosin HCl 0.4 MG Capsule PO (17:37)
[2020-08-11] MEDS: Ipratropium/Albuterol Sulfate 3 ML AMPUL.NEB INHALATION (19:45)
[2020-08-11 21:35] LABS: Bedside Glucose 186 mg/dL (70-110)
[2020-08-11] MEDS: Albuterol 2.5 MG/3 ML VIAL.NEB. INHALATION (23:10)
[2020-08-12 04:11] VITALS: BP 159/89; PULSE 85; RESP 20; TEMP 36.1; O2SAT 96
[2020-08-12 04:12] VITALS: BP 159/89; PULSE 85
[2020-08-12] MEDS: Montelukast 10 MG Tablet PO (04:12)
[2020-08-12] MEDS: Losartan Potassium 25 MG Tablet PO (04:12)
[2020-08-12] MEDS: Pantoprazole Sodium 40 MG Tablet PO (04:12)
[2020-08-12] MEDS: FLUoxetine 10 MG Capsule PO (04:12)
[2020-08-12] MEDS: Metoprolol(XL)Succ 25 MG Tablet 12.5 MG PO (04:12)
[2020-08-12] MEDS: guaiFENesin 600 MG Tablet PO (04:13)
[2020-08-12] MEDS: Ascorbic Acid 500 MG Tablet 1000 MG PO (04:13)
[2020-08-12] MEDS: Enoxaparin 40 MG/0.4 ML Syringe SC (04:13)
[2020-08-12] MEDS: Menthol/Lanolin/Calamine/Znox 113 GM Tube 1 APPLIC TOPICAL (04:17)
[2020-08-12] MEDS: Nystatin Powder 15gm Bottle 1 APPLIC TOPICAL (04:17)
[2020-08-12 04:30] VITALS: PULSE 85; RESP 20
[2020-08-12] MEDS: Albuterol 2.5 MG/3 ML VIAL.NEB. INHALATION (04:30)
[2020-08-12 06:21] LABS: Bedside Glucose 153 mg/dL (70-110)
[2020-08-12 07:00] VITALS: PULSE 80; RESP 18; O2SAT 99
[2020-08-12] MEDS: Ipratropium/Albuterol Sulfate 3 ML AMPUL.NEB INHALATION (07:00)
[2020-08-12] MEDS: Insulin Human 75/25 Kwickpen 20 UNIT SC (07:55)
[2020-08-12] MEDS: Aspirin E.C. 81 MG Tablet PO (07:55)
[2020-08-12 10:23] VITALS: BP 178/85; PULSE 81; RESP 22; TEMP 36.2; O2SAT 97
--- NOTE | 2020-08-12 10:31 | NURSING ---
Addendum entered by Vangie Godoy 08/12/20 10:57: Emanuel called back, updated by this nurse Addendum entered by Sara Benson 08/12/20 10:44: attempted to call Emaneul & Elida, no answer. will try again. Original Note: pt c/o sob, cant breath. sat 97% on 4 liters, rhonchi t/o ant/post rees. vitals WNL. dr staples updated, new order to send to ER for evaluation.
--- NOTE | 2020-08-12 19:58 | DCINST_ITS ---
- Discharge Diagnoses Current Active Problems: Current Active and Chronic Problems (Last Updated 07/30/20 @ 13:[address] Fly Taylor MD) Debility (Chronic) Multiple falls (Chronic) Elevated troponin (Chronic) Osteomyelitis of great toe of right foot (Acute) Peripheral arterial occlusive disease (Chronic) Hypertension (Chronic) Stroke (Chronic) Hyperlipidemia (Chronic) Diabetes mellitus (Chronic) Near syncope (Chronic) CAD (coronary artery disease) (Chronic) Carotid artery stenosis (Chronic) R CEA 2017 You will use the following diet at home:: No restrictions, Regular Your food should be the consistency of: Regular Your liquids should be the consistency of: Regular/Thin Discharge Activity: Return to Normal Activity, May Shower, Use Walker Weight Bearing Status: Weight bearing as tolerated Call your doctor if you observe: Fever of 101 or Higher, Inability to urinate, Inability to have a bowel movement, Shortness of breath, Chest pain, Uncontrolled pain Allergies/Adverse Reactions: Allergies Zlvyvie-Wvb-Gbd Reductase Inhibitor Adverse Reaction (Severe, Verified 08/12/20 10:51) mylagias lisinopril Adverse Reaction (Verified 08/12/20 10:51) cough Medications to take at Discharge ascorbic acid (vitamin C) 1,000 mg tablet 1 g PO DAILY tab 11/15/19 aspirin 81 mg tablet,delayed release 81 mg PO DAILY 11/15/19 chromium picolinate 1,000 mcg tablet 1,000 mcg PO DAILY 11/15/19 pantoprazole 40 mg tablet,delayed release 40 mg PO DAILY tab 11/15/19 montelukast 10 mg tablet 10 mg PO DAILY 05/16/20 Losartan Potassium [Cozaar] 25 mg PO DAILY 07/31/20 0.9 % Sodium Chloride [Sodium Chloride] 10 - 40 ml IV PRN PRN 08/12/20 Bisacodyl 10 mg RC DAILY PRN PRN 08/12/20 Ertapenem Sodium [Ertapenem] 1 gm IV DAILY 08/12/20 Heparin Sodium,Porcine/Pf [Heparin Flush 10 Units/ml Syr] 50 unit IV PRN PRN 08/12/20 Insulin Human 75/25 [Humalog Mix 75-25 Kwikpen (BKC)] 10 unit SQ DINNER 08/12/20 Insulin Lispro Protamin/Lispro [Insulin Lispro Mix 75-25 Kwkpn] 20 unit SQ BREAKFAST 08/12/20 Metoprolol Succinate 12.5 mg PO DAILY 08/12/20 Primary Care Physician: Karen Lowe MD [Primary Care Provider] - Please follow up with your Primary Care Physician in: 1 week. Test Results: Test results from this visit will be discussed in further detail at your follow- up appointment, if applicable. Please Follow Up With: Clarita Carbajal DPM When: F/U at [facility] within 1 week of discharge Please Follow Up With: Calvin Livingston MD When: F/U with neurology at discharge Proposed Discharge Date: 08/12/20
--- NOTE | 2020-08-12 20:00 | DS.PCM_ITS ---
Discharge Date and Diagnosis - Problem List Patient Problems: Active and Suspected Problems (Last Updated 07/30/20 @ 13:[address] Fly Taylor MD) Osteomyelitis of great toe of right foot (Acute) Date of Admission: 08/12/20 Date of Discharge: 08/12/20 - Primary Discharge Diagnosis Acute Problems: Active Problems (Last Updated 07/30/20 @ 13:[address] Fly Taylor MD) Osteomyelitis of great toe of right foot (Acute) - Secondary Discharge Diagnosis Chronic Problems: Chronic Problems (Last Updated 07/30/20 @ 13:[address] 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 evidence of necrosis (Chronic) Pleural effusion on left (Chronic) loculated per CT Chest 07/2019 thoracentesis 07/2019 Mass of right lung (Chronic) bronchoscopy 07/2019 Old inferior wall myocardial infarction (Chronic) Atherosclerotic heart disease of [place] coronary artery without angina pectoris (Chronic) History of non-ST elevation myocardial infarction (NSTEMI) (Chronic 07/21/17) Ischemic cardiomyopathy (Chronic) H/O coronary artery bypass surgery (Chronic 08/04/17) History of CVA (cerebrovascular accident) (Chronic 07/2017) Right bundle branch block (RBBB) (Chronic) Carotid artery stenosis (Chronic) R CEA 2018 Essential (primary) hypertension (Chronic) Claudication of both lower extremities (Chronic) Peripheral vascular occlusive disease (Chronic) [facility] Hospital Course and Treatment Consultations 07/31/20 16:43 Consult: Onc/Wound/traffic attendant Routine Comment: Right great toe wound Operations: None Procedures: None Summary of Care Provided: The patient is a 80 year old Male with below past medical history hospitalized for near syncope, complicated by right great toe MSSA osteomyelitis, elevated troponin, severe bilateral peripheral arterial occlusive disease, admitted to TCU with debility, here for rehabilitation, strengthening, intravenous antibiotics, prior to discharge home alone. 08/12/2020 Worsening respiratory status due to pneumonia, despite Unasyn, Levaquin IV. Discharge to [facility] [place] Emergency Department for evaluation, admission to Hospital. Patient Problems: Active and Suspected Problems (Last Updated 07/30/20 @ 13:[address] Fly wilson MD) Osteomyelitis of great toe of right foot (Acute) - Physical Exam Vitals/I&O's: Vital Signs Temp Pulse Resp BP Pulse Ox 97.2 F L 81 22 H 178/85 H 97 08/12/20 10:23 08/12/20 10:23 08/12/20 10:23 08/12/20 10:23 08/12/20 10:23 Oxygen Flow Rate (L/min) 4 Oxygen Delivery Method Nasal Cannula Weight: 89.868 kg Body Mass Index (BMI) 27.2 Intake and Output for Last 24 Hours 08/10/20 08/11/20 08/12/20 23:59 23:59 23:59 Intake Total 846 / 846 1326 / 1326 352 / 352 Output Total 150 / 150 Balance 846 / 846 1176 / 1176 352 / 352 Microbiology Past 72 Hours 08/08/20 13:15 Urine, Catheterized Urine Culture - Final Culture exhibits no growth. Laboratory Results 08/11/20 21:31: POC Glucose 186 H 08/12/20 06:14: POC Glucose 153 H Discharge Diet: No Restrictions Discharge Activity: Return to Normal Activity, May Shower, Use Walker Weight Bearing Status: Weight bearing as tolerated Call your doctor if you observe: Fever of 101 or Higher, Inability to urinate, Inability to have a bowel movement, Shortness of breath, Chest pain, Uncontrolled pain Home Medications: Medications to take at Discharge ascorbic acid (vitamin C) 1,000 mg tablet 1 g PO DAILY tab 11/15/19 aspirin 81 mg tablet,delayed release 81 mg PO DAILY 11/15/19 chromium picolinate 1,000 mcg tablet 1,000 mcg PO DAILY 11/15/19 pantoprazole 40 mg tablet,delayed release 40 mg PO DAILY tab 11/15/19 montelukast 10 mg tablet 10 mg PO DAILY 05/16/20 Losartan Potassium [Cozaar] 25 mg PO DAILY 07/31/20 0.9 % Sodium Chloride [Sodium Chloride] 10 - 40 ml IV PRN PRN 08/12/20 Bisacodyl 10 mg RC DAILY PRN PRN 08/12/20 Ertapenem Sodium [Ertapenem] 1 gm IV DAILY 08/12/20 Heparin Sodium,Porcine/Pf [Heparin Flush 10 Units/ml Syr] 50 unit IV PRN PRN 08/12/20 Insulin Human 75/25 [Humalog Mix 75-25 Kwikpen (BKC)] 10 unit SQ DINNER 08/12/20 Insulin Lispro Protamin/Lispro [Insulin Lispro Mix 75-25 Kwkpn] 20 unit SQ BREAKFAST 08/12/20 Metoprolol Succinate 12.5 mg PO DAILY 08/12/20 Primary Care Physician: Karen Lowe MD [Primary Care Provider] - Please follow up with your Primary Care Physician in: 1 week. Please Follow Up With: Clarita Carbajal DPM When: F/U at wound center within 1 week of discharge Please Follow Up With: Calvin Livingston MD When: F/U with neurology at discharge Disposition: Acute care Hospital Minutes spent on discharge:: 30 Patient Condition:: Guarded Medical Necessity - Tobacco Use Smoking Status: Never smoker Tobacco Use: Non-smoker Meaningful Use Info Meaningful Use Diagnoses (Choose all that apply): None applicable
== END 2020-08-12 10:31 | disposition short-term general hospital (02) | DRG 637 ==
PROVIDERS: Admitting Provider Family Medicine Geriatric Medicine; PCP Internal Medicine; Visit Provider Family Medicine Geriatric Medicine
DX: E11.69 Type 2 diabetes mellitus with other specified complication (principal); J18.9 Pneumonia, unspecified organism; M86.171 Other acute osteomyelitis, right ankle and foot; I50.22 Chronic systolic (congestive) heart failure; L97.516 Non-pressure chronic ulcer of other part of right foot with bone involvement without evidence of necrosis; B95.61 Methicillin susceptible Staphylococcus aureus infection as the cause of diseases classified elsewhere; I25.10 Atherosclerotic heart disease of native coronary artery without angina pectoris; K21.9 Gastro-esophageal reflux disease without esophagitis; E11.51 Type 2 diabetes mellitus with diabetic peripheral angiopathy without gangrene; E11.621 Type 2 diabetes mellitus with foot ulcer; I11.0 Hypertensive heart disease with heart failure; E78.5 Hyperlipidemia, unspecified; R29.6 Repeated falls; I25.2 Old myocardial infarction; L03.031 Cellulitis of right toe; Z95.1 Presence of aortocoronary bypass graft; F32.9 Major depressive disorder, single episode, unspecified; I25.5 Ischemic cardiomyopathy; L60.2 Onychogryphosis; E11.40 Type 2 diabetes mellitus with diabetic neuropathy, unspecified
CPT/HCPCS: 36415; 71046; 74018; 80048; 80076; 81001; 82962; 85025; 85652; 87070; 87086; 87205; 87426; 87633; 87635; 94640; 94667; 94668; 97110; 97162; 97166; 97530; 97535; J2997; J7050; U0005; A4216; J0295; U0003

== ENCOUNTER 2020-08-12 10:40 | Inpatient (IN) | payer MEDICARE, OTHER, SELFPAY ==
[2020-08-12] VITALS (21 sets, daily range): BP systolic 145–178; BP diastolic 67–93; PULSE 58–85; RESP 12–27; TEMP 35.8–36.3; O2SAT 90–100; BMI 28.2; BMI 27.6
--- NOTE | 2020-08-12 10:51 | EKG12_ITS ---
Test Reason : Blood Pressure : / mmHG Vent. Rate : 081 BPM Atrial Rate : 081 BPM P-R Int : 244 ms QRS Dur : 136 ms QT Int : 422 ms P-R-T Axes : 088 -55 114 degrees QTc Int : 490 ms Sinus rhythm with 1st degree A-V block with frequent and consecutive Premature ventricular complexes Left axis deviation Right bundle branch block Left ventricular hypertrophy with repolarization abnormality Inferior infarct , age undetermined Abnormal ECG Confirmed by MER URENA, BRITTANY ([id number]), editor at large HERNAN RAYMOND ([id number]) on 08/15/2020 6:53:39 AM Referred By: CL Confirmed By:BRITTANY DEL ANGEL MD
--- NOTE | 2020-08-12 11:19 | ED.DCSUM_ITS ---
History of Present Illness Chief Complaint: Shortness of Breath Informant: Patient Narrative: 80 yo M presents from transitional care unit with concern for worsening respiratory status. Patient was admitted for right great toe osteomyelitis. Recently diagnosed with bilateral pneumonia. Patient currently on Unasyn and Levaquin. Increasing oxygen demand and decreasing respiratory status brought the patient to the emergency department. Patient states that he is very fatigued. Denies any significant cough or fever. Denies any chest pain. Patient does admit to being short of breath. Denies any nausea, vomiting, abdominal pain. Past Medical History - Allergies and Home Meds Allergies/Adverse Reactions: Allergies Dbpfcpf-Gvs-Ian Reductase Inhibitor Adverse Reaction (Severe, Verified 08/12/20 10:51) mylagias lisinopril Adverse Reaction (Verified 08/12/20 10:51) cough Prior records reviewed: Yes Past Medical History: - - HTN, CHF, DMII, CAD Surgical History: coronary bypass surgery - x 3., - - Right CEA. Lives: [facility] Smoking Status: Never smoker Alcohol: None Drugs: None - Family History Maternal Family History: Reports: - - Patient denies any market maternal family history including heart disease, diabetes, cancer. Paternal Family History: Reports: Heart Disease Review of Systems General: Reports: Malaise. Denies: Chills, Fever, Sweats Eyes: Denies: Visual changes - bilaterally, Diplopia ENT: Denies: Rhinorrhea, Sore throat Cardiovascular: Denies: Chest pain, Palpitations Respiratory: Reports: Dyspnea. Denies: Cough, Dyspnea on exertion Gastrointestinal: Denies: Abdominal pain, Nausea, Vomiting, Diarrhea, Melena, Hematochezia Genitourinary: Denies: Dysuria, Hematuria, Frequency Musculoskeletal: Denies: Back pain, Extremity Pain Skin: Denies: Rash, Wounds Neurological: Denies: Headache, Weakness, Numbness Physical Exam Vital Signs/Narrative: Vital Signs Temp Pulse Resp BP Pulse Ox 08/12/20 10:41 96.9 F L 79 24 H 171/89 H 98 Inital Vital Signs reviewed: Yes General: Well nourished, Well developed, No Acute Distress Head: Normocephalic, Atraumatic Eyes: Perrl, EOMI ENT: Moist mucous membranes, No rhinorrhea Neck: Supple, Nontender Cardiovascular: Regular rate, Regular rhythm, No murmurs Respiratory: No distress, Chest nontender, - - Bilateral crackles and diminished air movement. Abdomen: Soft, Nontender, Nondistended, Normal bowel sounds Back: Nontender, Normal Inspection Extremities: Nontender, No edema Skin: Normal color, No rash Neurological: Alert, Oriented x3, Cranial nerves II-XII grossly intact, Normal Strength, Normal Sensation Psychological: Normal affect, Normal Mood Diagnostic/Tx/Re-eval Chest X-Ray - ED: 1 View, Read by ED Physician, Read by Radiologist, - - Bilateral infiltrates with left pleural effusion. - Rhythm Strip Rhythm Strip: Sinus Rhythm Ectopy: None - EKG Initial EKG Interpretation: Sinus Rhythm - Sinus rhythm. No evidence of acute ischemia. QTC and LA within normal limits. - Medical Decision Making Patient has coarse breath sounds bilaterally. Tachypneic. Requiring 4 L by nasal cannula. Chest x-ray shows concern for significant pneumonia. Patient was given vancomycin as he is already on Levaquin and Unasyn. Patient does appear somewhat volume overloaded and was given Lasix. Poke with hospitalist who is agreeable with admitting patient to the intensive care unit. Impression 1. Bilateral pneumonia 2. Volume overload 3. Hypoxemia ED Disposition - Plan for ED Patient: Disposition: Acute Care Hospital [facility]
[2020-08-12 11:25] LABS: Absolute Neutrophil Count 10.9 X10^3/uL (2.0-7.7); Basophil# 0.06 X10^3/uL; Basophil% 0.5 % (0-1); Eosinophil# 0.16 X10^3/uL; Eosinophils% 1.3 % (0-5); Hematocrit 34.7 % (40-54); Hemoglobin 10.3 g/dL (13.0-16.5); Lymphocyte % 3.2 % (19-41); Mean Corp Hgb Conc 29.7 g/dL (32-36); Mean Corpuscular Hgb 28.5 pg (27.0-32.0); Mean Corpuscular Volume 96.1 fL (80-94); Mean Platelet Vol. 10.5 fl (6.2-12.0); Monocyte# 0.76 X10^3/uL; Monocyte% 6.2 % (0-10); NRBC Flagged by Analyzer 0 % (0-5); Neutrophil # 10.87 X10^3/uL (2.7-7.7); Neutrophil % 88.2 % (47-70); POSITIVE DIFFERENTIAL YES; Platelet Count 298 K/mm3 (150-450); RBC Distribution Width SD 49.3 fl (35.1-43.9); Red Blood Count 3.61 M/mm3 (4.6-6.2); White Blood Count 12.3 K/mm3 (4.4-11.0)
[2020-08-12 11:26] LABS: Differential Indicated SCAN CRITERIA MET
[2020-08-12 11:34] LABS: International Normalized Ratio 1.3; Prothrombin Time (Protime)PT. 15.4 SECONDS (11.7-14.9)
[2020-08-12 11:35] LABS: Partial Thromboplast Time 40.1 Seconds (24.1-36.2)
[2020-08-12 11:50] LABS: ALB/GLOB Ratio 0.5 RATIO (0.9-2.4); AST(SGOT) 25 U/L (15-37); Alanine Aminotransfer ALT/SGPT 24 U/L (16-61); Albumin, Serum 2.2 g/dL (3.2-5.0); Alkaline Phosphatase 86 U/L (45-117); BNP,B-Type NATRIURETIC PEPTIDE 568.2 pg/mL (0-100); BUN 28 mg/dL (7-18); BUN/Creat Ratio 37.2 RATIO (10-20); Calcium,Total 8.9 mg/dL (8.5-10.1); Chloride 104 mmol/L (98-107); Creatinine, Serum 0.75 mg/dL (0.70-1.30); EST Glomerular Filtration Rate 106 mL/min (>60); Est Glom Filt Rate - Afr Amer 129 mL/min (>60); Estimated Creatinine Clearance 65.74 ml/min; Globulin 4.8 g/dL (2.2-4.2); Glucose 157 mg/dL (74-106); Potassium 4.5 mmol/L (3.5-5.1); Sodium Level 138 mmol/L (136-145)
[2020-08-12 11:51] LABS: Anion Gap 0 (5-15)
--- NOTE | 2020-08-12 12:07 | RAD_ITS ---
STUDY: X-RAY CHEST REASON FOR EXAM: Male, 80 years old. hypoxia, sob, weakness TECHNIQUE: Single AP portable view of the chest. COMPARISON: 08/09/2020 FINDINGS: Right upper extremity PICC which is unchanged. Status post median sternotomy. No change in the alveolar opacities in both lungs consistent with bilateral pneumonia, pulmonary edema, or ARDS. Also no change in the small bilateral pleural effusions are There is moderate cardiac enlargement. Normal mediastinum and pretty. Normal visualized pulmonary arteries. Normal visualized aortic arch and descending thoracic aorta. Normal visualized thoracic spine. Normal visualized ribs, clavicles, and shoulders. There is no demonstrated abnormality of the visualized soft tissue structures of the upper abdomen. RAD/Chest 1 View (Portable) IMPRESSION: No change from 08/09/2020. Electronically Signed: See Pineda MD at 12:52 EST Tel , Service support ,
--- NOTE | 2020-08-12 13:25 | PCM.HP.STD ---
Problem List (1) Acute hypoxic respiratory failure Status: Acute (2) Debility Status: Chronic (3) Multiple falls Status: Chronic (4) Elevated troponin Status: Chronic (5) Osteomyelitis of great toe of right foot Status: Acute (6) Peripheral arterial occlusive disease Status: Chronic (7) Hypertension Status: Chronic (8) Stroke Status: Chronic (9) Hyperlipidemia Status: Chronic (10) Diabetes mellitus Status: Chronic (11) Elevation of cardiac enzymes Status: Chronic Comment: Normal stress test (12) Near syncope Status: Chronic (13) CAD (coronary artery disease) Status: Chronic Qualifiers: (14) 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 Status: Chronic (15) 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 transplanted heart: [place] heart Qualified Code(s): I25.10 - Atherosclerotic heart disease of [place] coronary artery without angina pectoris (20) History of non-ST elevation myocardial infarction (NSTEMI) Status: Chronic (21) Ischemic cardiomyopathy Status: Chronic (22) H/O coronary artery bypass surgery Status: Chronic (23) History of CVA (cerebrovascular accident) Status: Chronic (24) Right bundle branch block (RBBB) Status: Chronic (25) Carotid artery stenosis Status: Chronic Qualifiers: Comment: R CEA 2017 (26) Essential (primary) hypertension Status: Chronic (27) 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 (28) Peripheral vascular occlusive disease Status: Chronic Comment: RLE (29) Acute on chronic systolic and diastolic heart failure, NYHA class 3 Status: Acute History of Present Illness Date of Admission: 08/12/20 Chief Complaint: Progressive worsening of shortness of breath. I cannot breathe The patient is a 80 year old M with multiple comorbidities and recent hospitalization from 07/22?07/31 for near syncope, right great toe diabetic ulcer osteomyelitis, peripheral occlusive right lower extremity arterial disease was sent from TCU to ER for evaluation of worsening of shortness of breath. As per triage note, patient shortness of breath is not improving with pneumonia, diagnosed 08/03 and osteomyelitis of right toes on IV ertapenem. When I saw the patient, he is gasping for breath, tachypneic, drowsy and lethargic with frequently closing his eyes. Detailed history is unobtainable because of shortness of breath and drowsiness. He denies chest pressure or tightness but feels rattling in the lungs. Labored breathing. Vitals in ER afebrile, blood pressure 153/74, respiratory rate 24-28/min, tachypneic, 92% on 2 L of oxygen ABG and BiPAP ordered. Patient had Lasix 40 mg in ED. EKG shows normal sinus rhythm with first-degree AV block, RBBB, LAD, LVH with repolarization abnormality and multiple PVCs at 81 bpm. Chest x-ray AP portable individually reviewed and shows diffuse alveolar opacities in both lungs, central congestion, pulmonary edema. Clinically it looks worse than previous chest x-ray of 08/09. Past Medical History Past Medical History (Chronic Problems): Chronic Problems (Last Updated 07/30/20 @ 13:[address] 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 evidence of necrosis (Chronic) Pleural effusion on left (Chronic) loculated per CT Chest 07/2019 thoracentesis 07/2019 Mass of right lung (Chronic) bronchoscopy 07/2019 Old inferior wall myocardial infarction (Chronic) Atherosclerotic heart disease of [place] coronary artery without angina pectoris (Chronic) History of non-ST elevation myocardial infarction (NSTEMI) (Chronic 07/21/17) Ischemic cardiomyopathy (Chronic) H/O coronary artery bypass surgery (Chronic 08/04/17) History of CVA (cerebrovascular accident) (Chronic 07/2017) Right bundle branch block (RBBB) (Chronic) Carotid artery stenosis (Chronic) R CEA 2017 Essential (primary) hypertension (Chronic) Claudication of both lower extremities (Chronic) Peripheral vascular occlusive disease (Chronic) RLE Medical History: Medical History (Last Updated 07/30/20 @ 13:[address] Fly Taylor MD) Pleural effusion on left (Chronic) J90 loculated per CT Chest 07/2019 thoracentesis 07/2019 Mass of right lung (Chronic) R91.8 bronchoscopy 07/2019 Old inferior wall myocardial infarction (Chronic) I25.2 Atherosclerotic heart disease of [place] coronary artery without angina pectoris (Chronic) I25.10 History of non-ST elevation myocardial infarction (NSTEMI) (Chronic) Onset Date: 07/21/17 I25.2 Ischemic cardiomyopathy (Chronic) I25.5 History of CVA (cerebrovascular accident) (Chronic) Onset Date: 07/2017 Z86.73 Right bundle branch block (RBBB) (Chronic) I45.10 Carotid artery stenosis (Chronic) I65.29 R CEA 2018 Essential (primary) hypertension (Chronic) I10 Claudication of both lower extremities (Chronic) I73.9 Peripheral vascular occlusive disease (Chronic) I73.9 RLE DM2 (diabetes mellitus, type 2) E11.9 Hepatic steatosis K76.0 Hydrocele, right N43.3 Pleural effusion (Inactive) J90 Allergies Dzzxhrc-Pqy-Vdn Reductase Inhibitor Adverse Reaction (Severe, Verified 08/12/20 10:51) mylagias lisinopril Adverse Reaction (Verified 08/12/20 10:51) cough Home Medications: Ambulatory Orders Medication Instructions Recorded ascorbic acid (vitamin C) 1,000 mg 1 g PO DAILY tab 11/15/19 tablet aspirin 81 mg tablet,delayed 81 mg PO DAILY 11/15/19 release chromium picolinate 1,000 mcg 1,000 mcg PO DAILY 11/15/19 tablet pantoprazole 40 mg tablet,delayed 40 mg PO DAILY tab 11/15/19 release montelukast 10 mg tablet 10 mg PO DAILY 05/16/20 Losartan Potassium [Cozaar] 25 mg PO DAILY 07/31/20 0.9 % Sodium Chloride [Sodium 10 - 40 ml IV PRN PRN 08/12/20 Chloride] Bisacodyl 10 mg RC DAILY PRN PRN 08/12/20 Ertapenem Sodium [Ertapenem] 1 gm IV DAILY 08/12/20 Heparin Sodium,Porcine/Pf [Heparin 50 unit IV PRN PRN 08/12/20 Flush 10 Units/ml Syr] Insulin Human 75/25 [Humalog Mix 10 unit SQ DINNER 08/12/20 75-25 Kwikpen (BKC)] Insulin Lispro Protamin/Lispro 20 unit SQ BREAKFAST 08/12/20 [Insulin Lispro Mix 75-25 Kwkpn] Metoprolol Succinate 12.5 mg PO DAILY 08/12/20 Surgical History: Surgical History (Last Updated 07/30/20 @ 13:[address] Fly Taylor MD) H/O coronary artery bypass surgery (Chronic) Onset Date: 08/04/17 Z95.1 History of bronchoscopy Onset Date: 08/25/19 Z98.890 LUNG, RIGHT LOWER LOBE, BIOPSY - FEATURES SUGGEST ORGANIZING INFLAMMATION. SEE COMMENT. 08/25/2019 COMMENT; There is no evidence of malignancy. Immunohistochemical stain for S100 is negative for Langerhans cells. Special stains for AFB and GMS were negative for fungal elements and mycobacteria, respectively. History of right-sided carotid endarterectomy Onset Date: 09/24/17 Z98.890 09/24/[address] Reyes @ [facility] History of thoracentesis Onset Date: 07/2019 Z98.890 left Surgical History: coronary bypass surgery - x 3., - - Right CEA. Psychiatric History: No pertinent psych hx Lives: Longterm Smoking Status: Never smoker Alcohol: None Drugs: None - *Family History Paternal History Items: Heart Disease Maternal History Items: - - Patient denies any market maternal family history including heart disease, diabetes, cancer. Review of Systems Constitutional: Reports: Weakness, Fatigue Cardiovascular: Denies: Chest Pain, Chest Pressure, Chest Tightness Respiratory: Reports: Shortness of Breath, Shortness of breath at rest, Shortness of breath upon exertion Skin: Reports: Wounds - Right great toe ulcer Neurological: Reports: Balance problems, Incoordination, - - Recurrent fall, debility Unable to obtain accurate/complete ROS d/t: Respiratory failure, shortness of breath, altered mental status VTE Information - Inpt Only VTE Present on Admission: No VTE Mechan Device Prophylaxis: None VTE Pharm Prophylaxis ordered?: Yes Patient Problems: Active and Suspected Problems (Last Updated 07/30/20 @ 13:[address] Fly Taylor MD) Osteomyelitis of great toe of right foot (Acute) Acute hypoxic respiratory failure (Acute) Acute on chronic systolic and diastolic heart failure, NYHA class 3 (Acute) Objective: Physical exam General: Drowsy, lethargic, confused and disoriented. Respiratory distress HEENT: Atraumatic, PERRLA, EOMI, Normocephalic Oral: No Gingival or Mucosal Lesions/ Ulcerations Neck: Supple, bilateral JVD, Negative Carotid Bruits Lungs: Air entry fairly diminished in bilateral lung bases. Bilateral coarse crepitations. Tachypneic, mild hypoxia Cardiovascular: Regular rate, Regular Rhythm, Normal S1, Normal S2, No murmurs. Multiple PVCs. Distal pulses of right popliteal, PT and DP is not palpable Abdomen: Bowel Sounds Present, Soft, Non Tender, Non-Distended : No renal angle tenderness. No suprapubic tenderness. Extremities: Bilateral lower extremity 3+ edema up to thigh level, Capillary Refill Less than 3 Seconds right arm PICC line Skin: Chronic ulcer of right great toe with black necrotic skin patch near toenail. Musculoskeletal: No Tenderness to Palpation of Joints or Extremities Neurological: Cranial nerves II-XII grossly intact, Deep Tendon Reflexes 2+/4 and Symmetrical, Neuro grossly intact Psych/Mental Status: Drowsy - Physical Exam Vitals/I&O's: Vital Signs Temp Pulse Resp BP Pulse Ox 97.0 F L 81 25 H 166/85 H 98 08/12/20 13:00 08/12/20 13:00 08/12/20 13:00 08/12/20 13:00 08/12/20 13:00 Oxygen Flow Rate (L/min) 4 Oxygen Delivery Method Nasal Cannula Weight: 208 lb 1.862 oz Body Mass Index (BMI) 28.2 General: Confused, Disoriented, Lethargic, - - In respiratory distress HEENT: Atraumatic, PERRLA, EOMI, Normocephalic Oral: Dry Mucosa Neck: Supple, Negative Carotid Bruits, Negative Hepatojugular Reflux, JVD, Bilateral Microbiology Past 72 Hours 08/12/20 11:35 Mucosa - Nose SARS-CoV-2 Antigen (Rapid) - Final Laboratory Results 08/12/20 11:05: WBC 12.3 H, RBC 3.61 L, Hgb 10.3 L, Hct 34.7 L, MCV 96.1 H, MCH 28.5, MCHC 29.7 L, RDW Std Deviation 49.3 H, RDW Coeff of [place] 14.0, Plt Count 298, MPV 10.5, Immature Gran % (Auto) 0.600, Neut % (Auto) 88.2 H, Lymph % (Auto) 3.2 L, Hayes % (Auto) 6.2, Eos % (Auto) 1.3, Baso % (Auto) 0.5, Absolute Neuts (auto) 10.9 H, Absolute Lymphs (auto) 0.40 L, Nucleated RBC % 0 08/12/20 11:05: PT 15.4 H, INR 1.3, APTT 40.1 H 08/12/20 11:05: Sodium 138, Potassium 4.5, Chloride 104, Carbon Dioxide 34.0 H, Anion Gap 0 L, BUN 28 H, Creatinine 0.75, Estim Creat Clear Calc 65.74, Est GFR (MDRD) Af Amer 129, Est GFR (MDRD) Non-Af 106, BUN/Creatinine Ratio 37.2 H, Glucose 157 H, Calcium 8.9, Total Bilirubin 0.40, AST 25, ALT 24, Alkaline Phosphatase 86, Troponin I 0.025, Total Protein 7.0, Albumin 2.2 L, Globulin 4.8 H, Albumin/Globulin Ratio 0.5 L 08/12/20 11:05: Lactic Acid 1.0 08/12/20 11:05: B-Natriuretic Peptide 568.2 H Current Medications Vancomycin HCl 1,250 mg/ (Sodium Chloride) 275 mls @ 167 mls/hr IV X1 ONE Stop: 08/12/20 14:18 Sodium Chloride () 250 mls @ 15 mls/hr IV .[id number] PRN PRN Reason: Additional IVPB Infusion Assessment/Plan All Active Problems (Last Updated 07/30/20 @ 13:[address] Fly Taylor MD) Osteomyelitis of great toe of right foot (Acute) Acute hypoxic respiratory failure (Acute) Acute on chronic systolic and diastolic heart failure, NYHA class 3 (Acute) The patient is a 80 year old M with multiple comorbidities and recent hospitalization from 07/22?07/31 for near syncope, right great toe diabetic ulcer osteomyelitis, peripheral occlusive right lower extremity arterial disease was sent from TCU to ER for evaluation of worsening of shortness of breath. As per triage note, patient shortness of breath is not improving with pneumonia, diagnosed 08/03 and osteomyelitis of right toes on IV ertapenem. EKG shows normal sinus rhythm with first-degree AV block, RBBB, LAD, LVH with repolarization abnormality and multiple PVCs at 81 bpm. Chest x-ray AP portable individually reviewed and shows diffuse alveolar opacities in both lungs, central congestion, pulmonary edema. Clinically it looks worse than previous chest x-ray of 08/09. 1. Acute hypoxic and hypercarbic respiratory failure with respiratory distress secondary to bilateral pulmonary edema complicated with recent pneumonia: Patient is being admitted in ICU. Leukocytosis with relative neutrophilia and lymphopenia. ABG 7.31/73/88/39 on 4 L of oxygen. Pulmonary consult. Total Lasix 80 mg IV bolus and then 10 mg/h infusion. Consult hydroelectric station chief. BiPAP ordered. 2. Acute on chronic systolic and diastolic heart failure: Patient recently had echo on 07/23/2020. EF 25 to 30% with a stage I diastolic dysfunction. Hypokinesis of inferior wall, lateral wall and septum, LA mildly enlarged. Normal right atrium. Trivial MR no significant valvular abnormality reported. Heart failure core measures including intake and output, fluid restriction less than 1500 mL, daily weight monitoring, kidney and electrolytes monitoring. Lasix drip as mentioned above. Patient on aspirin, losartan continued. Resume metoprolol succinate once patient is euvolemic. 3. Acute encephalopathy most likely metabolic/infectious, multiple etiologies: We will treat the underlying cause. 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 Patient had MRI positive of acute osteomyelitis but bone biopsy was negative. Patient is being managed by calibration tester Dr. Agarwal and ID Dr. Garcia. They are consulted. Patient also had right lower extremity angiogram during last hospital stay by Dr. Suarez and found chronic occlusion with collaterals at infragenicular level. PCI/angioplasty not feasible. Patient is on ertapenem through right arm PICC line. Antibiotic changed to IV vancomycin and Zosyn pending further ID recommendation. Panculture blood cultures x2, sputum culture ordered. MRSA nasal screen. SARS-CoV-2 rapid antigen negative on 08/12, 08/03 and 07/22. Respiratory panel negative on 08/03 4. Type 2 diabetes dxypjnlb-Bcor-Iqimj every 4 hourly with sliding scale Humalog insulin Hemoglobin A1c 5.9%. 5. CAD with history of CABG/ischemic cardiomyopathy-on aspirin continued. Allergy to statin. Patient had elevated troponin during previous hospitalization and had a stress test on 07/23 which showed no evidence of ischemia. 6. Carotid artery disease with history of right carotid endarterectomy. 7. Hypertension-stable, continue losartan regimen. 8. Hyperlipidemia- allergy to statin. 9. GERD-continue PPI. 10. 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 After discussion of benefits/risks procedures involved with full code, DNR CC arrest and DNR CC, the patient opted for DNR-CC Arrest with intubation. Patient is drowsy and lethargic but he said he he prefers not intubated until last resort. Patient does not want chest compression/CPR. Total time spent in [id number] encounter in discussion of advanced directive 16 minutes. Clinical Impression(s) from Imaging Studies Chest X-Ray 08/12/20 12:07 IMPRESSION: No change from 08/09/2020. Microbiology Past 72 Hours 08/12/20 11:35 Mucosa - Nose SARS-CoV-2 Antigen (Rapid) - Final Laboratory Results 08/12/20 11:05: WBC 12.3 H, RBC 3.61 L, Hgb 10.3 L, Hct 34.7 L, MCV 96.1 H, MCH 28.5, MCHC 29.7 L, RDW Std Deviation 49.3 H, RDW Coeff of Sacha 14.0, Plt Count 298, MPV 10.5, Immature Gran % (Auto) 0.600, Neut % (Auto) 88.2 H, Lymph % (Auto) 3.2 L, Hayes % (Auto) 6.2, Eos % (Auto) 1.3, Baso % (Auto) 0.5, Absolute Neuts (auto) 10.9 H, Absolute Lymphs (auto) 0.40 L, Nucleated RBC % 0 08/12/20 11:05: PT 15.4 H, INR 1.3, APTT 40.1 H 08/12/20 11:05: Sodium 138, Potassium 4.5, Chloride 104, Carbon Dioxide 34.0 H, Anion Gap 0 L, BUN 28 H, Creatinine 0.75, Estim Creat Clear Calc 65.74, Est GFR (MDRD) Af Amer 129, Est GFR (MDRD) Non-Af 106, BUN/Creatinine Ratio 37.2 H, Glucose 157 H, Calcium 8.9, Total Bilirubin 0.40, AST 25, ALT 24, Alkaline Phosphatase 86, Troponin I 0.025, Total Protein 7.0, Albumin 2.2 L, Globulin 4.8 H, Albumin/Globulin Ratio 0.5 L 08/12/20 11:05: Lactic Acid 1.0 08/12/20 11:05: B-Natriuretic Peptide 568.2 H 08/12/20 13:50: Urine Color Yellow, Urine Clarity Clear, Urine pH 5.0, Ur Specific [place] 1.025, Urine Protein 100 H, Urine Glucose (UA) Normal, Urine Ketones Negative, Urine Occult Blood Negative, Urine Nitrite Negative, Urine Bilirubin Negative, Urine Urobilinogen Normal, Ur Leukocyte Esterase Negative, Urine RBC 0 SEEN, Urine WBC 0 SEEN, Ur Squamous Epith Cells 0 SEEN, Urine Bacteria 0 SEEN, Urine Mucus 0 SEEN 08/12/20 14:21: Specimen Type ART, Sample Site L Radial, pH 7.31 L, Bicarbonate Actual 36.6 H, Total CO2 39, Base Excess 10 H, O2 Saturation 95, ABG pCO2 72.8 H*, ABG pO2 88, Reggie Test Positive, O2 Delivery Device Cannula, Liter Flow 4.0 Inpatient E&M: 04764 Init Hosp L3 Procedures: 83785 Advncd Care Plan 30 Min
[2020-08-12] MEDS: Furosemide 40 MG/4 ML Vial IV (13:32)
[2020-08-12 13:59] LABS: Bacteria 0 SEEN /hpf (None Seen); Mucous, Urine 0 SEEN /hpf (<or=2+); Red Blood Cells-Urine 0 SEEN /hpf (0-5); Squamous Epithelial Cells - UA 0 SEEN /hpf (0-5); White Blood Cells 0 SEEN /hpf (0-5)
[2020-08-12 14:08] LABS: Color, Urine Yellow (Yellow); Glucose, Dipstick Normal (Normal); Ketone-Dipstick Negative (Negative); Leukocyte Esterase-Dipstick Negative /ul (Negative); Nitrite-Dipstick Negative (Negative); Occult Blood-Urine Negative /ul (Negative); Protein-Dipstick 100 mg/dl (Negative); Specific Gravity, Urine 1.025 (1.002-1.030); Urine Bilirubin Dipstick Negative (Negative); Urine Clarity Clear (Clear); Urine Urobilinogen Normal (Normal)
[2020-08-12 14:26] LABS: Allen Test Positive; Base Excess 10 mmol/L (-2 to +2); Bicarbonate 36.6 mmol/L (22-26); Blood Gas Specimen Type ART; O2 Delivery Device Cannula; PO2 88 mmHG (75-100); SITE L Radial; SO2 95 % (95-99); Total Carbon Dioxide 39 mmol/L; pCO2 72.8 mmHg (35-45); pH 7.31 (7.35-7.45)
--- NOTE | 2020-08-12 14:37 | CPS ---
critical values, doctor Jefferson notified by Kandy
[2020-08-12 15:02] LABS: Magnesium 1.8 mg/dL (1.6-2.6)
[2020-08-12 15:36] LABS: Bedside Glucose 107 mg/dL (70-110)
[2020-08-12] MEDS: Lidocaine Jelly 2% 20 ML Syringe (URO-JET) 20 APPLIC TOPICAL (16:06)
[2020-08-12] MEDS: Furosemide 500 MG in Empty Viaflex 50 mL 1 EACH CONT INF (16:06)
--- NOTE | 2020-08-12 16:35 | NURSING ---
Emanuel Velasco, notified of patient in ICU and updated on pt status and plan of care.
[2020-08-12 16:56] LABS: M R Staph aureus DNA By PCR Negative (Negative); Probe Check PASS; Specimen Processing Control PASS
[2020-08-12] MEDS: Losartan Potassium 50 MG Tablet PO (18:13)
[2020-08-12 18:21] LABS: Bedside Glucose 99 mg/dL (70-110)
--- NOTE | 2020-08-12 19:16 | PCM.RX.CS ---
Consult Pharmacy has been consulted to manage selected antiobiotic: Vancomycin Type of Consult: New start Suspected Infection: Pneumonia Prior Doses of Antibiotics Received/Current Regimen: Received 1250mg iv x 1 on 08.12.20. Labs: Sodium 138 mmol/L (136-145) 08/12/20 11:05 Potassium 4.5 mmol/L (3.5-5.1) 08/12/20 11:05 Chloride 104 mmol/L (98-107) 08/12/20 11:05 Carbon Dioxide 34.0 mmol/L (21.0-32.0) H 08/12/20 11:05 Anion Gap 0 (5-15) L 08/12/20 11:05 BUN 28 mg/dL (7-18) H 08/12/20 11:05 Creatinine 0.75 mg/dL (0.70-1.30) 08/12/20 11:05 Est GFR (MDRD) Af Amer 129 mL/min (>60) 08/12/20 11:05 Est GFR (MDRD) Non-Af 106 mL/min (>60) 08/12/20 11:05 BUN/Creatinine Ratio 37.2 RATIO (10-20) H 08/12/20 11:05 Glucose 157 mg/dL (74-106) H 08/12/20 11:05 Microbiology: Microbiology 08/12/20 11:35 Mucosa - Nose SARS-CoV-2 Antigen (Rapid) - Final Weight used for dosin kg Estimated Creatinine Clearance: 66 ml/min Goal Trough: 15-20 mcg/mL Pharmacy Plan for Drug Dosing: Will start 1 gm iv q12h per protocol. Trough level ordered for 08.14.20 before 4th total dose. Pharmacy Service will continue to monitor and adjust dosing as required. Follow-Up Labs: Trough Vancomycin - 08.14.20 @0030 before 0100 dose
--- NOTE | 2020-08-12 21:40 | NURSING ---
Placed pt. on bipap. Pt. looked comfortable. Resting with eyes closed. RN left room. Within 5minutes pt. had taken bipap mask off saying he didn't like it. Talked with pt. about importance of bipap. Asked pt. if he would try again. Pt. stated he would. Bipap placed back on pt. Pt. lasted about 25minutes until he removed mask again stating he couldn't wear it. Placed back on 2L NC. Respiratory notified.
[2020-08-12 22:00] LABS: Bedside Glucose 107 mg/dL (70-110)
--- NOTE | 2020-08-12 23:12 | CPS ---
Pt cannot tolerate PAP therapy and is refusing at this time.
[2020-08-13] VITALS (22 sets, daily range): BP systolic 114–163; BP diastolic 50–80; PULSE 57–86; RESP 12–23; TEMP 35.9–36.8; O2SAT 90–100
[2020-08-13] MEDS: Vancomycin IV 1,000 MG/200 ML BAG 200 MG IV ×2 (01:57→12:38)
[2020-08-13 04:07] LABS: Absolute Neutrophil Count 14.3 X10^3/uL (2.0-7.7); Basophil# 0.07 X10^3/uL; Basophil% 0.4 % (0-1); Eosinophil# 0.23 X10^3/uL; Eosinophils% 1.4 % (0-5); Hematocrit 34.1 % (40-54); Hemoglobin 10.7 g/dL (13.0-16.5); Lymphocyte % 3.7 % (19-41); Mean Corp Hgb Conc 31.4 g/dL (32-36); Mean Corpuscular Hgb 29.5 pg (27.0-32.0); Mean Corpuscular Volume 93.9 fL (80-94); Mean Platelet Vol. 10.9 fl (6.2-12.0); Monocyte# 1.06 X10^3/uL; Monocyte% 6.5 % (0-10); NRBC Flagged by Analyzer 0 % (0-5); Neutrophil # 14.31 X10^3/uL (2.7-7.7); Neutrophil % 87.4 % (47-70); POSITIVE DIFFERENTIAL YES; Platelet Count 323 K/mm3 (150-450); RBC Distribution Width CV 13.7 % (11.6-14.6); RBC Distribution Width SD 47.1 fl (35.1-43.9); Red Blood Count 3.63 M/mm3 (4.6-6.2); White Blood Count 16.4 K/mm3 (4.4-11.0)
[2020-08-13] MEDS: 0.9% Saline Lock 10 ML Syringe IV ×3 (04:11→17:44)
[2020-08-13 04:25] LABS: Anion Gap 2 (5-15); BUN 25 mg/dL (7-18); BUN/Creat Ratio 29.3 RATIO (10-20); Chloride 95 mmol/L (98-107); Cholesterol 98 mg/dL (200); Creatinine, Serum 0.85 mg/dL (0.70-1.30); EST Glomerular Filtration Rate 92 mL/min (>60); Est Glom Filt Rate - Afr Amer 111 mL/min (>60); Estimated Creatinine Clearance 77.35 ml/min; Glucose 137 mg/dL (74-106); High Density Lipoprotein 39 mg/dL; Magnesium 1.5 mg/dL (1.6-2.6); Potassium 3.8 mmol/L (3.5-5.1); Sodium Level 136 mmol/L (136-145); Triglycerides 58 mg/dL; Very Low Density Lipoprotein 12 mg/dL (5-40)
[2020-08-13 07:15] LABS: Allen Test Positive; Base Excess 15 mmol/L (-2 to +2); Bicarbonate 39.3 mmol/L (22-26); Blood Gas Specimen Type ART; O2 Delivery Device Cannula; PO2 56 mmHG (75-100); SITE L Radial; SO2 89 % (95-99); Total Carbon Dioxide 41 mmol/L; pCO2 58.5 mmHg (35-45); pH 7.44 (7.35-7.45)
--- NOTE | 2020-08-13 07:20 | CON.PCM_ITS ---
Problem List (1) Debility Status: Chronic (2) Multiple falls Status: Chronic (3) Osteomyelitis of great toe of right foot Status: Acute (4) Peripheral arterial occlusive disease Status: Chronic (5) Hypertension Status: Chronic (6) Stroke Status: Chronic (7) Hyperlipidemia Status: Chronic (8) Diabetes mellitus Status: Chronic (9) Acute on chronic systolic and diastolic heart failure, NYHA class 3 Status: Acute (10) Elevation of cardiac enzymes Status: Chronic Comment: Normal stress test (11) 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 Status: Chronic (12) 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 without evidence of necrosis Status: Chronic (13) Atherosclerotic heart disease of [place] coronary artery without angina pectoris Status: Chronic Qualifiers: [place] vs. transplanted heart: [place] heart Qualified Code(s): I25.10 - Atherosclerotic heart disease of [place] coronary artery without angina pectoris (14) Ischemic cardiomyopathy Status: Chronic (15) H/O coronary artery bypass surgery Status: Chronic (16) Right bundle branch block (RBBB) Status: Chronic (17) Carotid artery stenosis Status: Chronic Qualifiers: Comment: R CEA 2018 (18) 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 Reason for Consult Date of Consultation: 08/13/20 Reason for Consultation: Sepsis History of Present Illness: The patient is a 80 year old M, with past medical history listed below, who presented to [facility] on 08/12/2020 secondary to concerns on the transitional care unit with worsening shortness of breath and increasing oxygen demand. Patient reportedly was being treated with Unasyn and Levaquin secondary to recent bilateral pneumonia with right great toe osteomyelitis. Patient had not had any recent cough or fever and had not reported any chest pain. Patient did report dyspnea, but denied any nausea, vomiting, aspiration event or abdominal pain. In the ER, patient was hypertensive at 171/89, but requiring supplemental oxygen to maintain saturations. A chest x-ray showed bilateral infiltrates with a left pleural effusion. Urinalysis was unremarkable. ABG did show some hypercarbic respiratory failure with poor compensation and marginal oxygenation on 4 L nasal cannula. Clinically, the ER physician thought the patient was volume overloaded and did administer Lasix. EKG was relatively unremarkable. Patient was admitted to the intensive care unit on the Lasix drip with orders for BiPAP. Since being in the intensive care unit, patient has been somewhat uncooperative with therapy. Patient did allow for nasal cannula, but was refusing any BiPAP. Oxygenation has improved overnight, but patient is becoming more confused. Patient has had desaturation with removal of nasal cannula. Patient has responded well to Lasix drip, but telemetry has been notable for some nonsustained V. tach. Patient does not report chest pain associated with these events. Difficult to obtain a review of systems at this time secondary to confusion. Past Medical History Past Medical History (Chronic Problems): Chronic Problems (Last Updated 07/30/20 @ 13:[address] 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 evidence of necrosis (Chronic) Pleural effusion on left (Chronic) loculated per CT Chest 07/2019 thoracentesis 07/2019 Mass of right lung (Chronic) bronchoscopy 07/2019 Old inferior wall myocardial infarction (Chronic) Atherosclerotic heart disease of [place] coronary artery without angina pectoris (Chronic) History of non-ST elevation myocardial infarction (NSTEMI) (Chronic 07/21/17) Ischemic cardiomyopathy (Chronic) H/O coronary artery bypass surgery (Chronic 08/04/17) History of CVA (cerebrovascular accident) (Chronic 07/2017) Right bundle branch block (RBBB) (Chronic) Carotid artery stenosis (Chronic) R CEA 2018 Essential (primary) hypertension (Chronic) Claudication of both lower extremities (Chronic) Peripheral vascular occlusive disease (Chronic) RLE Medical History: Medical History (Last Updated 07/30/20 @ 13:[address] Fly Taylor MD) Pleural effusion on left (Chronic) J90 loculated per CT Chest 07/2019 thoracentesis 07/2019 Mass of right lung (Chronic) R91.8 bronchoscopy 07/2019 Old inferior wall myocardial infarction (Chronic) I25.2 Atherosclerotic heart disease of [place] coronary artery without angina pectoris (Chronic) I25.10 History of non-ST elevation myocardial infarction (NSTEMI) (Chronic) Onset Date: 07/21/17 I25.2 Ischemic cardiomyopathy (Chronic) I25.5 History of CVA (cerebrovascular accident) (Chronic) Onset Date: 07/2017 Z86.73 Right bundle branch block (RBBB) (Chronic) I45.10 Carotid artery stenosis (Chronic) I65.29 R CEA 2018 Essential (primary) hypertension (Chronic) I10 Claudication of both lower extremities (Chronic) I73.9 Peripheral vascular occlusive disease (Chronic) I73.9 RLE DM2 (diabetes mellitus, type 2) E11.9 Hepatic steatosis K76.0 Hydrocele, right N43.3 Pleural effusion (Inactive) J90 Allergies Fhpwxvg-Val-Nup Reductase Inhibitor Adverse Reaction (Severe, Verified 08/12/20 10:51) mylagias lisinopril Adverse Reaction (Verified 08/12/20 10:51) cough Home Medications: Ambulatory Orders Medication Instructions Recorded ascorbic acid (vitamin C) 1,000 mg 1 g PO DAILY tab 11/15/19 tablet aspirin 81 mg tablet,delayed 81 mg PO DAILY 11/15/19 release chromium picolinate 1,000 mcg 1,000 mcg PO DAILY 11/15/19 tablet pantoprazole 40 mg tablet,delayed 40 mg PO DAILY tab 11/15/19 release montelukast 10 mg tablet 10 mg PO DAILY 05/16/20 Losartan Potassium [Cozaar] 25 mg PO DAILY 07/31/20 0.9 % Sodium Chloride [Sodium 10 - 40 ml IV PRN PRN 08/12/20 Chloride] Bisacodyl 10 mg RC DAILY PRN PRN 08/12/20 Ertapenem Sodium [Ertapenem] 1 gm IV DAILY 08/12/20 Heparin Sodium,Porcine/Pf [Heparin 50 unit IV PRN PRN 08/12/20 Flush 10 Units/ml Syr] Insulin Human 75/25 [Humalog Mix 10 unit SQ DINNER 08/12/20 75-25 Kwikpen (BKC)] Insulin Lispro Protamin/Lispro 20 unit SQ BREAKFAST 08/12/20 [Insulin Lispro Mix 75-25 Kwkpn] Metoprolol Succinate 12.5 mg PO DAILY 08/12/20 Surgical History: Surgical History (Last Updated 07/30/20 @ 13:[address] Fly Taylor MD) H/O coronary artery bypass surgery (Chronic) Onset Date: 08/04/17 Z95.1 History of bronchoscopy Onset Date: 08/25/19 Z98.890 LUNG, RIGHT LOWER LOBE, BIOPSY - FEATURES SUGGEST ORGANIZING INFLAMMATION. SEE COMMENT. 08/25/2019 COMMENT; There is no evidence of malignancy. Immunohistochemical stain for S100 is negative for Langerhans cells. Special stains for AFB and GMS were negative for fungal elements and mycobacteria, respectively. History of right-sided carotid endarterectomy Onset Date: 09/24/17 Z98.890 09/24/[address] Reyes @ [facility] History of thoracentesis Onset Date: 07/2019 Z98.890 left Surgical History: coronary bypass surgery - x 3., - - Right CEA. Psychiatric History: No pertinent psych hx Lives: [facility] Smoking Status: Never smoker Alcohol: None Drugs: None - *Family History Paternal History Items: Heart Disease Maternal History Items: - - Patient denies any [place] maternal family history including heart disease, diabetes, cancer. Review of Systems Unable to obtain accurate/complete ROS d/t: Current mental status Patient Problems: Active and Suspected Problems (Last Updated 07/30/20 @ 13:[address] Fly Taylor MD) Osteomyelitis of great toe of right foot (Acute) Acute hypoxic respiratory failure (Acute) Acute on chronic systolic and diastolic heart failure, NYHA class 3 (Acute) Objective: Chest x-ray was personally reviewed and shows no significant change compared to previous x-ray. Patient does have a pleural effusion. Last echocardiogram was in June 2020 showing an EF of 25 to 30% with stage I diastolic dysfunction and focal hypokinesis. Unable to quantify right-sided pressures. Patient has never had pulmonary function testing. - Physical Exam Vitals/I&O's: Vital Signs Temp Pulse Resp BP Pulse Ox 35.9 C L 57 L 16 140/72 H 96 08/13/20 04:00 08/13/20 06:00 08/13/20 06:00 08/13/20 06:00 08/13/20 06:00 Oxygen Flow Rate (L/min) 1 Oxygen Delivery Method Nasal Cannula Weight: 86.5 kg Body Mass Index (BMI) 27.6 Intake and Output for Last 24 Hours 08/11/20 08/12/20 08/13/20 23:59 23:59 23:59 Intake Total 375 / 375 324.47 / 324.47 Output Total 4650 / 4650 2200 / 2200 Balance -4275 / -4275 -1875.53 / -1875.53 General: Alert, Cooperative - Intermittently, - - Appears stated age. Thin build. HEENT: Atraumatic, PERRLA, EOMI, Normocephalic, - - Injection without icterus Oral: No Gingival or Mucosal Lesions/ Ulcerations, Dry Mucosa, - - Difficult to understand speech Neck: Supple, No JVD, No Nodes, Trachea Midline Lungs: No rhonchi, No wheeze, Diminished, Rales Cardiovascular: Normal S1, Normal S2, Irregular Rate, - - Multiple PVCs Abdomen: Bowel Sounds Present, Soft, Non Tender Extremities: No clubbing, No cyanosis Skin: Ulcer/ Wound - Black eschar with desquamation noted on the right big toe Musculoskeletal: No Tenderness to Palpation of Joints or Extremities Lymphatic: No Cervical, Supraclavicular, or Inguinal Adenopathy Neurological: Neuro grossly intact, - - Decreased sensation peripherally. Patient does have some dysarthria, but this appears to be secondary to dry mouth. Psych/Mental Status: Impulsive, Restless Microbiology Past 72 Hours 08/12/20 11:35 Mucosa - Nose SARS-CoV-2 Antigen (Rapid) - Final Laboratory Results 08/12/20 11:05: WBC 12.3 H, RBC 3.61 L, Hgb 10.3 L, Hct 34.7 L, MCV 96.1 H, MCH 28.5, MCHC 29.7 L, RDW Std Deviation 49.3 H, RDW Coeff of Sach[place] 14.0, Plt Count 298, MPV 10.5, Immature Gran % (Auto) 0.600, Neut % (Auto) 88.2 H, Lymph % (Auto) 3.2 L, [place] % (Auto) 6.2, Eos % (Auto) 1.3, Baso % (Auto) 0.5, Absolute Neuts (auto) 10.9 H, Absolute Lymphs (auto) 0.40 L, Nucleated RBC % 0 08/12/20 11:05: PT 15.4 H, INR 1.3, APTT 40.1 H 08/12/20 11:05: Sodium 138, Potassium 4.5, Chloride 104, Carbon Dioxide 34.0 H, Anion Gap 0 L, BUN 28 H, Creatinine 0.75, Estim Creat Clear Calc 65.74, Est GFR (MDRD) Af Amer 129, Est GFR (MDRD) Non-Af 106, BUN/Creatinine Ratio 37.2 H, Glucose 157 H, Calcium 8.9, Total Bilirubin 0.40, AST 25, ALT 24, Alkaline Phosphatase 86, Troponin I 0.025, Total Protein 7.0, Albumin 2.2 L, Globulin 4.8 H, Albumin/Globulin Ratio 0.5 L 08/12/20 11:05: Lactic Acid 1.0 08/12/20 11:05: B-Natriuretic Peptide 568.2 H 08/12/20 11:05: Magnesium 1.8 08/12/20 13:50: Urine Color Yellow, Urine Clarity Clear, Urine pH 5.0, Ur Specific [place] 1.025, Urine Protein 100 H, Urine Glucose (UA) Normal, Urine Ketones Negative, Urine Occult Blood Negative, Urine Nitrite Negative, Urine Bilirubin Negative, Urine Urobilinogen Normal, Ur Leukocyte Esterase Negative, Urine RBC 0 SEEN, Urine WBC 0 SEEN, Ur Squamous Epith Cells 0 SEEN, Urine Bact eria 0 SEEN, Urine Mucus 0 SEEN 08/12/20 14:21: Specimen Type ART, Sample Site L Radial, pH 7.31 L, Bicarbonate Actual 36.6 H, Total CO2 39, Base Excess 10 H, O2 Saturation 95, ABG pCO2 72.8 H*, ABG pO2 88, Reggie Test Positive, O2 Delivery Device Cannula, Liter Flow 4.0 08/12/20 15:15: MRSA (PCR) Negative 08/12/20 15:28: POC Glucose 107 08/12/20 16:00: Troponin I 0.029 08/12/20 18:12: POC Glucose 99 08/12/20 19:20: Troponin I 0.030 08/12/20 21:52: POC Glucose 107 08/12/20 23:05: Troponin I 0.034 08/13/20 03:50: Sodium 136, Potassium 3.8, Chloride 95 L, Carbon Dioxide 39.0 H, Anion Gap 2 L, BUN 25 H, Creatinine 0.85, Estim Creat Clear Calc 77.35, Est GFR (MDRD) Af Amer 111, Est GFR (MDRD) Non-Af 92, BUN/Creatinine Ratio 29.3 H, Glucose 137 H, Calcium 9.0, Magnesium 1.5 L, Triglycerides 58, Cholesterol 98, LDL Cholesterol 47, VLDL Cholesterol 12, HDL Cholesterol 39 L 08/13/20 03:50: WBC 16.4 H, RBC 3.63 L, Hgb 10.7 L, Hct 34.1 L, MCV 93.9, MCH 29.5, MCHC 31.4 L D, RDW Std Deviation 47.1 H, RDW Coeff of Sacha 13.7, Plt Count 323, MPV 10.9, Immature Gran % (Auto) 0.600, Neut % (Auto) 87.4 H, Lymph % ( Auto) 3.7 L, [place] % (Auto) 6.5, Eos % (Auto) 1.4, Baso % (Auto) 0.4, Absolute Neuts (auto) 14.3 H, Absolute Lymphs (auto) 0.60 L, Nucleated RBC % 0 08/13/20 07:10: Specimen Type ART, Sample Site L Radial, pH 7.44, Bicarbonate Actual 39.3 H, Total CO2 41, Base Excess 15 H, O2 Saturation 89 L, ABG pCO2 58.5 H, ABG pO2 56 L, Reggie Test Positive, O2 Delivery Device Cannula, Liter Flow 2.0 Current Medications Acetaminophen (Acetaminophen 325 Mg Tablet) 650 mg PO Q6H PRN PRN PRN Reason: Pain Score 1-10/Temp > 100.7 F Al Hydroxide/Mg Hydroxide (Mag Hydrox/Al Hydrox/Simeth 30 Ml Udc) 30 ml PO Q6H PRN PRN PRN Reason: Gastric Burning Albuterol Sulfate (Albuterol 2.5 Mg/3 Ml Vial.Neb.) 2.5 mg INHALATION Q2H PRN PRN PRN Reason: SOB/Wheezing Aspirin (Aspirin E.C. 81 Mg Tablet) 81 mg PO DAILYCM JOSIE Enoxaparin Sodium (Enoxaparin 40 Mg/0.4 Ml Syringe) 40 mg SC DAILY JOSIE Heparin Sodium (Beef Lung) (Heparin Pf Lock 10 Units/Ml 50 Units/5 Ml Syringe) 50 units IV UD PRN PRN Reason: PICC Line Heparin Flush Hydralazine HCl (Hydralazine 20 Mg/Ml Vial) 10 mg IV Q4H PRN PRN PRN Reason: BLOOD PRESSURE ELEVATION Sodium Chloride () 250 mls @ 15 mls/hr IV .[id number] PRN PRN Reason: Additional IVPB Infusion Furosemide 500 mg/ N/A 50 mls @ 0.5 mls/hr CONT INF .Q100H [facility] Stop: 08/16/20 17:59 Last Infusion: 08/13/20 06:34 Dose: 10 mg/hr, 1 mls/hr Documented by: Piperacillin Sod/Tazobactam (Sod 3.375 gm/ Sodium Chloride) 50 mls @ 12.5 mls/hr IV Q8 JOSIE Last Admin: 08/13/20 06:10 Dose: 12.5 mls/hr Documented by: Vancomycin IV Pharmacy to Dose (1 ea/ Sodium Chloride) 500 mls @ 250 mls/hr IV PRN PRN; Protocol PRN Reason: Rx to Dose Vancomycin HCl (Vancomycin) 1,000 mg in 200 mls @ 200 mls/hr IV Q12H [facility] Last Infusion: 08/13/20 03:03 Dose: Infused Documented by: Magnesium Sulfate () 4 gm in 100 mls @ 25 mls/hr IV X1 ONE Stop: 08/13/20 10:48 Insulin Human Lispro (Insulin Lispro 100 Unit/Ml Insuln.Pen) 0 unit SC ACHS [facility]; Protocol Losartan Potassium (Losartan Potassium 50 Mg Tablet) 50 mg PO DAILY [facility] Metoprolol Succinate (Metoprolol(Xl)Succ 25 Mg Tablet) 12.5 mg PO DAILY [facility] Montelukast Sodium (Montelukast 10 Mg Tablet) 10 mg PO DAILY [facility] Morphine Sulfate (Morphine 2 Mg/Ml Syringe) 2 mg IV Q3H PRN PRN PRN Reason: Pain Score 6-10/10/resp failur Oxycodone HCl (Oxycodone 5 Mg Tablet) 5 mg PO Q4H PRN PRN PRN Reason: Pain Score 4-5 Pantoprazole Sodium (Pantoprazole Sodium 40 Mg Tablet) 40 mg PO DAILY [facility] Prochlorperazine Edisylate (Prochlorperazine 10 Mg/2 Ml Vial) 5 mg IV Q4H PRN PRN PRN Reason: Breakthrough Nausea/Vomiting Sodium Chloride (0.9% Saline Lock 10 Ml Syringe) 10 - 40 ml IV UD PRN PRN Reason: Open End PICC Flush Last Admin: 08/13/20 04:11 Dose: 40 ml Documented by: Sodium Chloride (0.9 % Nacl (Sterile) Posiflush 10 Ml) 10 - 40 ml IV UD PRN PRN Reason: Port access or dressing change Sodium Chloride (0.9% Saline Lock 10 Ml Syringe) 10 - 40 ml IV UD PRN PRN Reason: SALINE FLUSH Assessment/Plan Active and Suspected Problems (Last Updated 07/30/20 @ 13:[address] Fly Taylor MD) Osteomyelitis of great toe of right foot (Acute) Acute hypoxic respiratory failure (Acute) Acute on chronic systolic and diastolic heart failure, NYHA class 3 (Acute) RECOMMENDATIONS: 1. Obtain ABG to evaluate ventilation status 2. Supplement magnesium 3. Recheck electrolytes this afternoon 4. Antibiotics per infectious disease 5. Obtain bedside swallow prior to p.o. intake 6. Transition blood sugars to before every meal and at bedtime IMPRESSIONS: 1. Acute combined respiratory failure Clinical suspicion for a significant component of acute on chronic combi christina heart failure leading to pulmonary edema with pleural effusion. However, patient did have some hypercarbia in the ER which may be secondary to respiratory muscle fatigue. Will obtain an ABG this morning to ensure this is not worsening. Failure to comply with BiPAP therapy does complicate management. Clinical suspicion that Lasix drip can be discontinued and treated with intermittent dosing. 2. Acute on chronic combined CHF/nonsustained V. tach/peripheral vascular disease/carotid artery disease status post right carotid endarterectomy Patient has responded to diuretic therapy well. May need to hold losartan given need for diuretic therapy. Likely okay to resume beta-kam from my perspective. Patient has had some nonsustained V. tach and magnesium was marginal. Will replete. Repeat electrolytes this afternoon. 3. Acute metabolic encephalopathy/delirium Multiple possible etiologies. Will increase nasal cannula oxygen to help with O2 status. Patient also is at risk for electrolyte abnormalities. Patient with significant peripheral vascular disease and lower extremity ulcer. Patient was on ertapenem, but was changed to Vanco and Zosyn. ID to see today. 4. Diabetes mellitus type 2 Patient has not required any coverage. Likely okay to transition to p.o. diet and transition to before every meal and at bedtime blood sugar checks with sliding scale insulin. 5. Hypertension/hyperlipidemia/GERD/advanced age/protracted hospitalization Complicates care, management, recovery and prognosis. Hypertensive medications as discussed above. Okay to continue with other baseline medications. Clinical suspicion for a need of therapy following this hospitalization. Case management is aware. Inpatient E&M: [id number] Init Hosp L3
--- NOTE | 2020-08-13 07:20 | PCM.PN.HOSP ---
Patient Problems: Active and Suspected Problems (Last Updated 07/30/20 @ 13:[address] Fly Taylor MD) Osteomyelitis of great toe of right foot (Acute) Acute hypoxic respiratory failure (Acute) Acute on chronic systolic and diastolic heart failure, NYHA class 3 (Acute) Reason for Visit: Follow-up for acute hypoxic respiratory failure Objective: Patient had good diuresis, negative fluid balance 6100 mL. Blood pressure was elevated yesterday evening 173/87, got controlled in the morning 140/72 patient 92% on 1 L of oxygen. Shortness of breath is improved. No chest pain. Patient was on BiPAP last night. Physical exam Physical exam General: Alert, awake oriented x3. HEENT: Atraumatic, PERRLA, EOMI, Normocephalic Oral: No Gingival or Mucosal Lesions/ Ulcerations Neck: Supple, bilateral JVD, Negative Carotid Bruits Lungs: Air entry fairly diminished in bilateral lung bases. Bilateral coarse crepitations. Tachypneic, mild hypoxia Cardiovascular: Regular rate, Regular Rhythm, Normal S1, Normal S2, No murmurs. secured entrance monitor sinus rhythm with multiple PVCs. Distal pulses of right popliteal, PT and DP is not palpable Abdomen: Bowel Sounds Present, Soft, Non Tender, Non-Distended : No renal angle tenderness. No suprapubic tenderness. Extremities: Bilateral lower extremity 2+ edema up to knee level, Capillary Refill Less than 3 Seconds right arm PICC line Skin: Chronic ulcer of right great toe with black necrotic skin patch near toenail. Musculoskeletal: No Tenderness to Palpation of Joints or Extremities Neurological: Cranial nerves II-XII grossly intact, Deep Tendon Reflexes 2+/4 and Symmetrical, Neuro grossly intact Psych/Mental Status: Drowsy Vitals/I&O's: Vital Signs Temp Pulse Resp BP Pulse Ox 96.7 F L 57 L 16 140/72 H 96 08/13/20 04:00 08/13/20 06:00 08/13/20 06:00 08/13/20 06:00 08/13/20 06:00 Oxygen Flow Rate (L/min) 1 Oxygen Delivery Method Nasal Cannula Weight: 190 lb 11.198 oz Body Mass Index (BMI) 27.6 Intake and Output for Last 24 Hours 08/11/20 08/12/20 08/13/20 23:59 23:59 23:59 Intake Total 375 / 375 324.47 / 324.47 Output Total 4650 / 4650 2200 / 2200 Balance -4275 / -4275 -1875.53 / -1875.53 Microbiology Past 72 Hours 08/12/20 11:35 Mucosa - Nose SARS-CoV-2 Antigen (Rapid) - Final Laboratory Results 08/12/20 11:05: WBC 12.3 H, RBC 3.61 L, Hgb 10.3 L, Hct 34.7 L, MCV 96.1 H, MCH 28.5, MCHC 29.7 L, RDW Std Deviation 49.3 H, RDW Coeff of Sacha 14.0, Plt Count 298, MPV 10.5, Immature Gran % (Auto) 0.600, Neut % (Auto) 88.2 H, Lymph % (Auto) 3.2 L, Sully % (Auto) 6.2, Eos % (Auto) 1.3, Baso % (Auto) 0.5, Absolute Neuts (auto) 10.9 H, Absolute Lymphs (auto) 0.40 L, Nucleated RBC % 0 08/12/20 11:05: PT 15.4 H, INR 1.3, APTT 40.1 H 08/12/20 11:05: Sodium 138, Potassium 4.5, Chloride 104, Carbon Dioxide 34.0 H, Anion Gap 0 L, BUN 28 H, Creatinine 0.75, Estim Creat Clear Calc 65.74, Est GFR (MDRD) Af Amer 129, Est GFR (MDRD) Non-Af 106, BUN/Creatinine Ratio 37.2 H, Glucose 157 H, Calcium 8.9, Total Bilirubin 0.40, AST 25, ALT 24, Alkaline Phosphatase 86, Troponin I 0.025, Total Protein 7.0, Albumin 2.2 L, Globulin 4.8 H, Albumin/Globulin Ratio 0.5 L 08/12/20 11:05: Lactic Acid 1.0 08/12/20 11:05: B-Natriuretic Peptide 568.2 H 08/12/20 11:05: Magnesium 1.8 08/12/20 13:50: Urine Color Yellow, Urine Clarity Clear, Urine pH 5.0, Ur Specific [place] 1.025, Urine Protein 100 H, Urine Glucose (UA) Normal, Urine Ketones Negative, Urine Occult Blood Negative, Urine Nitrite Negative, Urine Bilirubin Negative, Urine Urobilinogen Normal, Ur Leukocyte Esterase Negative, Urine RBC 0 SEEN, Urine WBC 0 SEEN, Ur Squamous Epith Cells 0 SEEN, Urine Bacteria 0 SEEN, Urine Mucus 0 SEEN 08/12/20 14:21: Specimen Type ART, Sample Site L Radial, pH 7.31 L, Bicarbonate Actual 36.6 H, Total CO2 39, Base Excess 10 H, O2 Saturation 95, ABG pCO2 72.8 H*, ABG pO2 88, Reggie Test Positive, O2 Delivery Device Cannula, Liter Flow 4.0 08/12/20 15:15: MRSA (PCR) Negative 08/12/20 15:28: POC Glucose 107 08/12/20 16:00: Troponin I 0.029 08/12/20 18:12: POC Glucose 99 08/12/20 19:20: Troponin I 0.030 08/12/20 21:52: POC Glucose 107 08/12/20 23:05: Troponin I 0.034 08/13/20 03:50: Sodium 136, Potassium 3.8, Chloride 95 L, Carbon Dioxide 39.0 H, Anion Gap 2 L, BUN 25 H, Creatinine 0.85, Estim Creat Clear Calc 77.35, Est GFR (MDRD) Af Amer 111, Est GFR (MDRD) Non-Af 92, BUN/Creatinine Ratio 29.3 H, Glucose 137 H, Calcium 9.0, Magnesium 1.5 L, Triglycerides 58, Cholesterol 98, LDL Cholesterol 47, VLDL Cholesterol 12, HDL Cholesterol 39 L 08/13/20 03:50: WBC 16.4 H, RBC 3.63 L, Hgb 10.7 L, Hct 34.1 L, MCV 93.9, MCH 29.5, MCHC 31.4 L D, RDW Std Deviation 47.1 H, RDW Coeff of Sacha 13.7, Plt Count 323, MPV 10.9, Immature Gran % (Auto) 0.600, Neut % (Auto) 87.4 H, Lymph % (Auto) 3.7 L, Sully % (Auto) 6.5, Eos % (Auto) 1.4, Baso % (Auto) 0.4, Absolute Neuts (auto) 14.3 H, Absolute Lymphs (auto) 0.60 L, Nucleated RBC % 0 08/13/20 07:10: Specimen Type ART, Sample Site L Radial, pH 7.44, Bicarbonate Actual 39.3 H, Total CO2 41, Base Excess 15 H, O2 Saturation 89 L, ABG pCO2 58.5 H, ABG pO2 56 L, Reggie Test Positive, O2 Delivery Device Cannula, Liter Flow 2.0 Current Medications Acetaminophen (Acetaminophen 325 Mg Tablet) 650 mg PO Q6H PRN PRN PRN Reason: Pain Score 1-10/Temp > 100.7 F Al Hydroxide/Mg Hydroxide (Mag Hydrox/Al Hydrox/Simeth 30 Ml Udc) 30 ml PO Q6H PRN PRN PRN Reason: Gastric Burning Albuterol Sulfate (Albuterol 2.5 Mg/3 Ml Vial.Neb.) 2.5 mg INHALATION Q2H PRN PRN PRN Reason: SOB/Wheezing Aspirin (Aspirin E.C. 81 Mg Tablet) [facility] Enoxaparin Sodium (Enoxaparin 40 Mg/0.4 Ml Syringe) 40 mg SC DAILY [facility] Heparin Sodium (Beef Lung) (Heparin Pf Lock 10 Units/Ml 50 Units/5 Ml Syringe) 50 units IV UD PRN PRN Reason: PICC Line Heparin Flush Hydralazine HCl (Hydralazine 20 Mg/Ml Vial) 10 mg IV Q4H PRN PRN PRN Reason: BLOOD PRESSURE ELEVATION Sodium Chloride () 250 mls @ 15 mls/hr IV .[id number] PRN PRN Reason: Additional IVPB Infusion Furosemide 500 mg/ N/A 50 mls @ 0.5 mls/hr CONT INF .Q100H [facility] Stop: 08/16/20 17:59 Last Infusion: 08/13/20 06:34 Dose: 10 mg/hr, 1 mls/hr Documented by: Piperacillin Sod/Tazobactam (Sod 3.375 gm/ Sodium Chloride) 50 mls @ 12.5 mls/hr IV Q8 [facility] Last Admin: 08/13/20 06:10 Dose: 12.5 mls/hr Documented by: Vancomycin IV Pharmacy to Dose (1 ea/ Sodium Chloride) 500 mls @ 250 mls/hr IV PRN PRN; Protocol PRN Reason: Rx to Dose Vancomycin HCl (Vancomycin) 1,000 mg in 200 mls @ 200 mls/hr IV Q12H [facility] Last Infusion: 08/13/20 03:03 Dose: Infused Documented by: Magnesium Sulfate () 4 gm in 100 mls @ 25 mls/hr IV X1 ONE Stop: 08/13/20 10:48 Insulin Human Lispro (Insulin Lispro 100 Unit/Ml Insuln.Pen) 0 unit SC ACHS [facility]; Protocol Losartan Potassium (Losartan Potassium 50 Mg Tablet) 50 mg PO DAILY [facility] Metoprolol Succinate (Metoprolol(Xl)Succ 25 Mg Tablet) 12.5 mg PO DAILY [facility] Montelukast Sodium (Montelukast 10 Mg Tablet) 10 mg PO DAILY [facility] Morphine Sulfate (Morphine 2 Mg/Ml Syringe) 2 mg IV Q3H PRN PRN PRN Reason: Pain Score 6-10/10/resp failur Oxycodone HCl (Oxycodone 5 Mg Tablet) 5 mg PO Q4H PRN PRN PRN Reason: Pain Score 4-5 Pantoprazole Sodium (Pantoprazole Sodium 40 Mg Tablet) 40 mg PO DAILY [facility] Prochlorperazine Edisylate (Prochlorperazine 10 Mg/2 Ml Vial) 5 mg IV Q4H PRN PRN PRN Reason: Breakthrough Nausea/Vomiting Sodium Chloride (0.9% Saline Lock 10 Ml Syringe) 10 - 40 ml IV UD PRN PRN Reason: Open End PICC Flush Last Admin: 08/13/20 04:11 Dose: 40 ml Documented by: Sodium Chloride (0.9 % Nacl (Sterile) Posiflush 10 Ml) 10 - 40 ml IV UD PRN PRN Reason: Port access or dressing change Sodium Chloride (0.9% Saline Lock 10 Ml Syringe) 10 - 40 ml IV UD PRN PRN Reason: SALINE FLUSH STROKE Vital Signs/Narrative: Vital Signs Temp Pulse Resp BP Pulse Ox 08/13/20 06:00 57 L 16 140/72 H 96 08/13/20 05:00 76 14 143/65 H 92 08/13/20 04:00 96.7 F L 73 15 160/73 H 92 Medical Necessity - Tobacco Use Smoking Status: Never smoker Assessment/Plan All Active Problems (Last Updated 07/30/20 @ 13:[address] Fly Taylor MD) Osteomyelitis of great toe of right foot (Acute) Acute hypoxic respiratory failure (Acute) Acute on chronic systolic and diastolic heart failure, NYHA class 3 (Acute) The patient is a 80 year old M with multiple comorbidities and recent hospitalization from 07/22?07/31 for near syncope, right great toe diabetic ulcer osteomyelitis, peripheral occlusive right lower extremity arterial disease was sent from TCU to ER for evaluation of worsening of shortness of breath. As per triage note, patient shortness of breath is not improving with pneumonia, diagnosed 08/03 and osteomyelitis of right toes on IV ertapenem. EKG shows normal sinus rhythm with first-degree AV block, RBBB, LAD, LVH with repolarization abnormality and multiple PVCs at 81 bpm. Chest x-ray AP portable individually reviewed and shows diffuse alveolar opacities in both lungs, central congestion, pulmonary edema. Clinically it looks worse than previous chest x-ray of 08/09. 1. Acute hypoxic and hypercarbic respiratory failure with respiratory distress secondary to bilateral pulmonary edema complicated with recent pneumonia: Patient is being admitted in ICU. Leukocytosis with relative neutrophilia and lymphopenia. ABG 7.31/73/88/39 on 4 L of oxygen. Pulmonary consult. Patient had 40 mg mg IV bolus and then 10 mg/h infusion. Consult directory compiler. On BiPAP as needed and at bedtime. 08/13: Repeat ABG 7.4 4/58/56 on 2 L of oxygen. The oxygen has improved, currently 4 L titrate as per pulse ox. Patient hemodynamically stable on transfer to PCU floor 2. Acute on chronic systolic and diastolic heart failure: Patient recently had echo on 07/23/2020. EF 25 to 30% with a stage I diastolic dysfunction. Hypokinesis of inferior wall, lateral wall and septum, LA mildly enlarged. Normal right atrium. Trivial MR no significant valvular abnormality reported. Heart failure core measures including intake and output, fluid restriction less than 1500 mL, daily weight monitoring, kidney and electrolytes monitoring. 08/13: Patient on aspirin, losartan continued. Lasix gradually tapered and discontinued. Lasix 40 mg IV twice daily. Resume metoprolol succinate 3. Acute encephalopathy most likely metabolic/infectious, multiple etiologies: We will treat the underlying cause. 08/13: Patient was still confused in the morning as per nursing staff. PCO2 has improved. 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 Patient had MRI positive of acute osteomyelitis but bone biopsy was negative. Patient is being managed by drop wire operator Dr. Agarwal and ID Dr. Garcia. They are consulted. Patient also had right lower extremity angiogram during last hospital stay by Dr. Suarez and found chronic occlusion with collaterals at infragenicular level. PCI/angioplasty not feasible. Patient is on ertapenem through right arm PICC line. Antibiotic changed to IV vancomycin and Zosyn pending further ID recommendation. 08/13: MRSA nasal screen negative. Urine culture no growth. Blood cultures x2 are pending. Prelim sputum culture 1+ white cells with no growth. SARS-CoV-2 rapid antigen negative on 08/12, 08/03 and 07/22. Respiratory panel negative on 08/03 4. Type 2 diabetes [id number] every 4 hourly with sliding scale Humalog insulin Hemoglobin A1c 5.9%. Accu-Cheks are well controlled. 5. CAD with history of CABG/ischemic cardiomyopathy-on aspirin continued. Allergy to statin. Patient had elevated troponin during previous hospitalization and had a stress test on 07/23 which showed no evidence of ischemia. 6. Carotid artery disease with history of right carotid endarterectomy. 7. Hypertension-stable, continue losartan regimen. 8. Hyperlipidemia- allergy to statin. 9. GERD-continue PPI. 10. 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 After discussion of benefits/risks procedures involved with full code, DNR CC arrest and DNR CC, the patient opted for DNR-CC Arrest with intubation. Patient is drowsy and lethargic but he said he he prefers not intubated until last resort. Patient does not want chest compression/CPR. Total time spent in [id number] encounter in discussion of advanced directive 16 minutes. Clinical Impression(s) from Imaging Studies Chest X-Ray 08/12/20 12:07 IMPRESSION: No change from 08/09/2020. Microbiology Past 72 Hours 08/12/20 14:45 Sputum, Induced/Lukens Gram Stain - Final 08/12/20 14:45 Sputum, Induced/Lukens Respiratory Culture - Preliminary Culture exhibits no growth. 08/12/20 13:50 Urine, Clean Catch Urine Culture - Preliminary Culture exhibits no growth. 08/12/20 11:35 Mucosa - Nose SARS-CoV-2 Antigen (Rapid) - Final Laboratory Results 08/12/20 15:15: MRSA (PCR) Negative 08/12/20 16:00: Troponin I 0.029 08/12/20 18:12: POC Glucose 99 08/12/20 19:20: Troponin I 0.030 08/12/20 21:52: POC Glucose 107 08/12/20 23:05: Troponin I 0.034 08/13/20 03:50: Sodium 136, Potassium 3.8, Chloride 95 L, Carbon Dioxide 39.0 H, Anion Gap 2 L, BUN 25 H, Creatinine 0.85, Estim Creat Clear Calc 77.35, Est GFR (MDRD) Af Amer 111, Est GFR (MDRD) Non-Af 92, BUN/Creatinine Ratio 29.3 H, Glucose 137 H, Calcium 9.0, Magnesium 1.5 L, Triglycerides 58, Cholesterol 98, LDL Cholesterol 47, VLDL Cholesterol 12, HDL Cholesterol 39 L 08/13/20 03:50: WBC 16.4 H, RBC 3.63 L, Hgb 10.7 L, Hct 34.1 L, MCV 93.9, MCH 29.5, MCHC 31.4 L D, RDW Std Deviation 47.1 H, RDW Coeff of Sacha 13.7, Plt Count 323, MPV 10.9, Immature Gran % (Auto) 0.600, Neut % (Auto) 87.4 H, Lymph % (Auto) 3.7 L, Sully % (Auto) 6.5, Eos % (Auto) 1.4, Baso % (Auto) 0.4, Absolute Neuts (auto) 14.3 H, Absolute Lymphs (auto) 0.60 L, Nucleated RBC % 0 08/13/20 07:10: Specimen Type ART, Sample Site L Radial, pH 7.44, Bicarbonate Actual 39.3 H, Total CO2 41, Base Excess 15 H, O2 Saturation 89 L, ABG pCO2 58.5 H, ABG pO2 56 L, Reggie Test Positive, O2 Delivery Device Cannula, Liter Flow 2.0 08/13/20 08:37: POC Glucose 138 H 08/13/20 11:41: POC Glucose 141 H 08/13/20 14:21: Sodium 135 L, Potassium 3.9, Chloride 95 L, Carbon Dioxide 37.0 H, Anion Gap 3 L, BUN 25 H, Creatinine 1.01, Estim Creat Clear Calc 65.09, Est GFR (MDRD) Af Amer 92, Est GFR (MDRD) Non-Af 76, BUN/Creatinine Ratio 24.8 H, Glucose 215 H, Calcium 9.0, Phosphorus 3.5, Magnesium 2.2 Inpatient E&M: 88600 Subs Hosp L2
[2020-08-13] MEDS: Magnesium Sulfate 4gm/100mL 4 GM/100 ML IV.SOLN. IV (08:00)
[2020-08-13] MEDS: Montelukast 10 MG Tablet PO (08:23)
[2020-08-13] MEDS: Aspirin E.C. 81 MG Tablet PO (08:23)
[2020-08-13] MEDS: Losartan Potassium 25 MG Tablet PO (08:23)
[2020-08-13] MEDS: Metoprolol(XL)Succ 25 MG Tablet 12.5 MG PO (08:24)
[2020-08-13] MEDS: Pantoprazole Sodium 40 MG Tablet PO (08:24)
[2020-08-13] MEDS: Enoxaparin 40 MG/0.4 ML Syringe SC (08:24)
[2020-08-13 08:40] LABS: Bedside Glucose 138 mg/dL (70-110)
--- NOTE | 2020-08-13 10:20 | CASEMGMT ---
SW spoke w/Migdalia from TCU, they will be able to take pt back. In reviewing notes, pt may need longer than he can stay in TCU. As per RN, pt is having some confusion today so MIRTHA called pt's son. MIRTHA called son Emanuel, spoke w/micky about plan from here, to return to TCU vs going to a different fdc, as pt may need longer than what is available in TCU. After some discussion, son would like for pt to return to TCU with the hope that pt may still be able to return home from TCU. Son states pt has until September 05 in TCU and was told if pt is close to being able to go home at that time, they may be able to give him a little more time. Son states he did complete the Medicaid application for pt as well and will give to SW in TCU, states however that they do not wan to to sell pt's home. Son states family wants pt's home to be available, even if pt needs to go to a fdc for a longer amount of time, in the hope he can return home. Son explains pt wants to ultimately return home and they will support this. SW offered support to son. For now, plan will continue to be for pt to go to TCU from here. SW spoke w/Migdalia on TCU referral phone to confirm plan, they will continue to have a bed for pt. Plan: TCU at discharge.
--- NOTE | 2020-08-13 10:24 | CASEMGMT ---
[facility] CM Readmission Note Previous Admission: 07/22/20-07/31/20 Diagnosis: NSTEMI, osteomylitis foot DC Disposition: TCU Current Admission Readmission Date: 08/12/20 Presentation: severe respiratory distress Diagnosis: Pulmonary Edema, Pneumonia Pt was transferred from TCU to ER for worsening respiratory status. Pt was placed on Bipap, Lasix gtt. Patient was not ordered Lasix on dc from index admission or in TCU. Pt has listed medical history of NSTEMI, Ischemic cardiomyopathy with EF 25-30% on echo of 07/23/29. Pt's weight on admission to TCU was 91.27 kg and 92.2 kg on admission 08/12/20 DC Plan: TCU Cindy ZARAGOZA RN ACM
[2020-08-13 11:50] LABS: Bedside Glucose 141 mg/dL (70-110)
--- NOTE | 2020-08-13 13:31 | NURSING ---
wound photo: right great toe
--- NOTE | 2020-08-13 13:32 | NURSING ---
wound photo: right great toe
--- NOTE | 2020-08-13 13:33 | NURSING ---
wound photo: buttocks
[2020-08-13 14:40] LABS: BUN 25 mg/dL (7-18); Creatinine, Serum 1.01 mg/dL (0.70-1.30); EST Glomerular Filtration Rate 76 mL/min (>60); Estimated Creatinine Clearance 65.09 ml/min; Glucose 215 mg/dL (74-106)
[2020-08-13 14:41] LABS: Anion Gap 3 (5-15); BUN/Creat Ratio 24.8 RATIO (10-20); Chloride 95 mmol/L (98-107); Est Glom Filt Rate - Afr Amer 92 mL/min (>60); Magnesium 2.2 mg/dL (1.6-2.6); Phosphorus 3.5 mg/dL (2.5-4.9); Potassium 3.9 mmol/L (3.5-5.1); Sodium Level 135 mmol/L (136-145)
--- NOTE | 2020-08-13 16:27 | PCM.PN.ID ---
Patient Problems: Active and Suspected Problems (Last Updated 07/30/20 @ 13:[address] Fly Taylor MD) Osteomyelitis of great toe of right foot (Acute) Acute hypoxic respiratory failure (Acute) Acute on chronic systolic and diastolic heart failure, NYHA class 3 (Acute) Subjective: Moved from TCU, given lasix, breathing better, no fever - Physical Exam Vitals/I&O's: Vital Signs Temp Pulse Resp BP Pulse Ox 97.5 F L 82 18 143/58 H 95 08/13/20 11:45 08/13/20 11:45 08/13/20 11:45 08/13/20 11:45 08/13/20 11:45 Oxygen Flow Rate (L/min) 1 Oxygen Delivery Method Nasal Cannula Weight: 86.5 kg Body Mass Index (BMI) 27.6 Intake and Output for Last 24 Hours 08/11/20 08/12/20 08/13/20 23:59 23:59 23:59 Intake Total 375 / 375 677.89 / 677.89 Output Total 4650 / 4650 2200 / 2200 Balance -4275 / -4275 -1522.11 / -1522.11 General: Alert, Cooperative, No apparent distress Lungs: Diminished Cardiovascular: Regular rate, Regular Rhythm Abdomen: Soft, Non Tender, Non-Distended Skin: Ulcer/ Wound - reviewed toe photos Microbiology Past 72 Hours 08/12/20 14:45 Sputum, Induced/Lukens Gram Stain - Final 08/12/20 14:45 Sputum, Induced/Lukens Respiratory Culture - Preliminary Culture exhibits no growth. 08/12/20 13:50 Urine, Clean Catch Urine Culture - Preliminary Culture exhibits no growth. 08/12/20 11:35 Mucosa - Nose SARS-CoV-2 Antigen (Rapid) - Final Laboratory Results 08/12/20 15:15: MRSA (PCR) Negative 08/12/20 16:00: Troponin I 0.029 08/12/20 18:12: POC Glucose 99 08/12/20 19:20: Troponin I 0.030 08/12/20 21:52: POC Glucose 107 08/12/20 23:05: Troponin I 0.034 08/13/20 03:50: Sodium 136, Potassium 3.8, Chloride 95 L, Carbon Dioxide 39.0 H, Anion Gap 2 L, BUN 25 H, Creatinine 0.85, Estim Creat Clear Calc 77.35, Est GFR (MDRD) Af Amer 111, Est GFR (MDRD) Non-Af 92, BUN/Creatinine Ratio 29.3 H, Glucose 137 H, Calcium 9.0, Magnesium 1.5 L, Triglycerides 58, Cholesterol 98, LDL Cholesterol 47, VLDL Cholesterol 12, HDL Cholesterol 39 L 08/13/20 03:50: WBC 16.4 H, RBC 3.63 L, Hgb 10.7 L, Hct 34.1 L, MCV 93.9, MCH 29.5, MCHC 31.4 L D, RDW Std Deviation 47.1 H, RDW Coeff of Sacha 13.7, Plt Count 323, MPV 10.9, Immature Gran % (Auto) 0.600, Neut % (Auto) 87.4 H, Lymph % (Auto) 3.7 L, [place] % (Auto) 6.5, Eos % (Auto) 1.4, Baso % (Auto) 0.4, Absolute Neuts (auto) 14.3 H, Absolute Lymphs (auto) 0.60 L, Nucleated RBC % 0 08/13/20 07:10: Specimen Type ART, Sample Site L Radial, pH 7.44, Bicarbonate Actual 39.3 H, Total CO2 41, Base Excess 15 H, O2 Saturation 89 L, ABG pCO2 58.5 H, ABG pO2 56 L, Reggie Test Positive, O2 Delivery Device Cannula, Liter Flow 2.0 08/13/20 08:37: POC Glucose 138 H 08/13/20 11:41: POC Glucose 141 H 08/13/20 14:21: Sodium 135 L, Potassium 3.9, Chloride 95 L, Carbon Dioxide 37.0 H, Anion Gap 3 L, BUN 25 H, Creatinine 1.01, Estim Creat Clear Calc 65.09, Est GFR (MDRD) Af Amer 92, Est GFR (MDRD) Non-Af 76, BUN/Creatinine Ratio 24.8 H, Glucose 215 H, Calcium 9.0, Phosphorus 3.5, Magnesium 2.2 Current Medications Acetaminophen (Acetaminophen 325 Mg Tablet) 650 mg PO Q6H PRN PRN PRN Reason: Pain Score 1-10/Temp > 100.7 F Al Hydroxide/Mg Hydroxide (Mag Hydrox/Al Hydrox/Simeth 30 Ml Udc) 30 ml PO Q6H PRN PRN PRN Reason: Gastric Burning Albuterol Sulfate (Albuterol 2.5 Mg/3 Ml Vial.Neb.) 2.5 mg INHALATION Q2H PRN PRN PRN Reason: SOB/Wheezing Aspirin (Aspirin E.C. 81 Mg Tablet) 81 mg PO DAILYCM [facility] Last Admin: 08/13/20 08:23 Dose: 81 mg Documented by: Enoxaparin Sodium (Enoxaparin 40 Mg/0.4 Ml Syringe) 40 mg SC DAILY [facility] Last Admin: 08/13/20 08:24 Dose: 40 mg Documented by: Furosemide (Furosemide 40 Mg/4 Ml Vial) 40 mg IV BID@1000,1800 [facility] Heparin Sodium (Beef Lung) (Heparin Pf Lock 10 Units/Ml 50 Units/5 Ml Syringe) 50 units IV UD PRN PRN Reason: PICC Line Heparin Flush Hydralazine HCl (Hydralazine 20 Mg/Ml Vial) 10 mg IV Q4H PRN PRN PRN Reason: BLOOD PRESSURE ELEVATION Sodium Chloride () 250 mls @ 15 mls/hr IV .[id number] PRN PRN Reason: Additional IVPB Infusion Piperacillin Sod/Tazobactam (Sod 3.375 gm/ Sodium Chloride) 50 mls @ 12.5 mls/hr IV Q8 [facility] Last Admin: 08/13/20 13:44 Dose: 12.5 mls/hr Documented by: Insulin Human Lispro (Insulin Lispro 100 Unit/Ml Insuln.Pen) 0 unit SC ACHS [facility]; Protocol Last Admin: 08/13/20 12:03 Dose: Not Given Documented by: Losartan Potassium (Losartan Potassium 25 Mg Tablet) 25 mg PO DAILY [facility] Last Admin: 08/13/20 08:23 Dose: 25 mg Documented by: Metoprolol Succinate (Metoprolol(Xl)Succ 25 Mg Tablet) 12.5 mg PO DAILY [facility] Last Admin: 08/13/20 08:24 Dose: 12.5 mg Documented by: Montelukast Sodium (Montelukast 10 Mg Tablet) 10 mg PO DAILY [facility] Last Admin: 08/13/20 08:23 Dose: 10 mg Documented by: Morphine Sulfate (Morphine 2 Mg/Ml Syringe) 2 mg IV Q3H PRN PRN PRN Reason: Pain Score 6-10/10/resp failur Nutritional Formula (Nutritional Supplement (Christian) Packet) 1 packet PO BIDCM [facility] Oxycodone HCl (Oxycodone 5 Mg Tablet) 5 mg PO Q4H PRN PRN PRN Reason: Pain Score 4-5 Pantoprazole Sodium (Pantoprazole Sodium 40 Mg Tablet) 40 mg PO DAILY [facility] Last Admin: 08/13/20 08:24 Dose: 40 mg Documented by: Prochlorperazine Edisylate (Prochlorperazine 10 Mg/2 Ml Vial) 5 mg IV Q4H PRN PRN PRN Reason: Breakthrough Nausea/Vomiting Sodium Chloride (0.9% Saline Lock 10 Ml Syringe) 10 - 40 ml IV UD PRN PRN Reason: Open End PICC Flush Last Admin: 08/13/20 13:44 Dose: 20 ml Documented by: Sodium Chloride (0.9 % Nacl (Sterile) Posiflush 10 Ml) 10 - 40 ml IV UD PRN PRN Reason: Port access or dressing change Sodium Chloride (0.9% Saline Lock 10 Ml Syringe) 10 - 40 ml IV UD PRN PRN Reason: SALINE FLUSH Medical Necessity - Tobacco Use Smoking Status: Never smoker Route of nutrition/ use of supplements: [] Nutritional Intake: [] IV Site: [] Rosenberg Catheter: [] - Assessment/Plan Antibiotics: [] Assessment/Plan: [] Active and Suspected Problems (Last Updated 07/30/20 @ 13:[address] 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 Carbajal neg so far. Poor bloodflow, angio done and no intervention able to be performed. Cx with MSSA and anaerobes. Has picc, has been on unasyn. Stop date 09/04/20. At TCU, CXR and hypoxia worsened, levaquin added for empiric pneumonia coverage. Now moved to hospital, changed to vanc/zosyn, given lasix. Cxs neg so far, MRSA pcr neg, will stop vanc today. Will follow
[2020-08-13] MEDS: Insulin Lispro 100 UNIT/ML INSULN.PEN SC ×2 (17:44→22:58)
[2020-08-13] MEDS: Furosemide 40 MG/4 ML Vial IV (17:44)
[2020-08-13 18:06] LABS: Bedside Glucose 230 mg/dL (70-110)
[2020-08-14] VITALS (11 sets, daily range): BP systolic 132–159; BP diastolic 66–87; PULSE 56–89; RESP 16–18; TEMP 36.3–36.7; O2SAT 94–100
[2020-08-14 00:16] LABS: Bedside Glucose 226 mg/dL (70-110)
[2020-08-14 06:06] LABS: Absolute Lymphocyte Count 0.81 X10^3/uL (0.83-4.51); Absolute Neutrophil Count 12.1 X10^3/uL (2.0-7.7); Basophil# 0.07 X10^3/uL; Basophil% 0.5 % (0-1); Hematocrit 35.6 % (40-54); Hemoglobin 10.9 g/dL (13.0-16.5); Lymphocyte # 0.81 X10^3/ul (4.0); Lymphocyte % 5.4 % (19-41); Mean Corp Hgb Conc 30.6 g/dL (32-36); Mean Corpuscular Hgb 28.7 pg (27.0-32.0); Mean Corpuscular Volume 93.7 fL (80-94); Mean Platelet Vol. 10.4 fl (6.2-12.0); Monocyte# 1.23 X10^3/uL; Monocyte% 8.3 % (0-10); NRBC Flagged by Analyzer 0 % (0-5); Neutrophil # 12.09 X10^3/uL (2.7-7.7); Neutrophil % 81.3 % (47-70); Platelet Count 308 K/mm3 (150-450); RBC Distribution Width CV 13.9 % (11.6-14.6); RBC Distribution Width SD 47.8 fl (35.1-43.9); White Blood Count 14.9 K/mm3 (4.4-11.0)
[2020-08-14 06:38] LABS: Anion Gap 4 (5-15); BUN 38 mg/dL (7-18); BUN/Creat Ratio 32.5 RATIO (10-20); Calcium,Total 8.9 mg/dL (8.5-10.1); Chloride 94 mmol/L (98-107); Creatinine, Serum 1.17 mg/dL (0.70-1.30); EST Glomerular Filtration Rate 64 mL/min (>60); Est Glom Filt Rate - Afr Amer 77 mL/min (>60); Estimated Creatinine Clearance 56.19 ml/min; Glucose 136 mg/dL (74-106); Phosphorus 3.5 mg/dL (2.5-4.9); Potassium 3.8 mmol/L (3.5-5.1); Sodium Level 138 mmol/L (136-145)
[2020-08-14 06:50] LABS: Bedside Glucose 144 mg/dL (70-110)
--- NOTE | 2020-08-14 08:39 | PCM.PN.PUL ---
Patient Problems: Active and Suspected Problems (Last Updated 07/30/20 @ 13:[address] Fly Taylor MD) Osteomyelitis of great toe of right foot (Acute) Acute hypoxic respiratory failure (Acute) Acute on chronic systolic and diastolic heart failure, NYHA class 3 (Acute) Subjective: Patient transferred out of the intensive care unit yesterday. No acute issues were reviewed overnight. Patient does not have recollection of seeing me yesterday, but states he feels subjectively improved. Patient is not reporting any pain at this time. Patient is requiring only 2 L nasal cannula to maintain saturations. - Physical Exam Vitals/I&O's: Vital Signs Temp Pulse Resp BP Pulse Ox 36.4 C L 69 18 132/67 H 94 08/14/20 05:10 08/14/20 07:43 08/14/20 05:10 08/14/20 05:10 08/14/20 07:24 Oxygen Flow Rate (L/min) 2 Oxygen Delivery Method Nasal Cannula Weight: 85.2 kg Body Mass Index (BMI) 27.6 Intake and Output for Last 24 Hours 08/12/20 08/13/20 08/14/20 23:59 23:59 23:59 Intake Total 375 / 375 1101.22 / 1101.22 36.67 / 36.67 Output Total 4650 / 4650 2650 / 2950 675 / 675 Balance -4275 / -4275 -1548.78 / -1848.78 -638.33 / -638.33 General: Alert, Cooperative, No apparent distress, - - Appears stated age. Clearer speech today HEENT: Atraumatic, PERRLA, EOMI, Normocephalic, - - No scleral icterus or injection noted Oral: Moist Mucosa, No Gingival or Mucosal Lesions/ Ulcerations Neck: Supple, No JVD, No Nodes, Trachea Midline Lungs: No rhonchi, No wheeze, No rales, Diminished, - - Symmetric expansion Cardiovascular: Regular rate, Regular Rhythm, Normal S1, Normal S2, No murmurs, No rub noted, No Gallop Abdomen: Bowel Sounds Present, Soft, Non Tender, Non-Distended Extremities: No clubbing, No cyanosis, No edema Skin: - - No change compared to yesterday Musculoskeletal: No Tenderness to Palpation of Joints or Extremities Lymphatic: No Cervical, Supraclavicular, or Inguinal Adenopathy Neurological: Cranial nerves II-XII grossly intact, Neuro grossly intact, Motor Exam 5/5 strength throughout Psych/Mental Status: Normal Affect, Appropriate Microbiology Past 72 Hours 08/12/20 13:50 Urine, Clean Catch Urine Culture - Final Culture exhibits no growth. 08/12/20 11:10 Blood Culture (Wb) - Pic Blood Culture - Preliminary No growth in 48 hours. 08/12/20 11:05 Blood Culture (Wb) - Right Hand Blood Culture - Preliminary No growth in 48 hours. 08/12/20 14:45 Sputum, Induced/Lukens Gram Stain - Final 08/12/20 14:45 Sputum, Induced/Lukens Respiratory Culture - Preliminary Culture exhibits no growth. 08/12/20 11:35 Mucosa - Nose SARS-CoV-2 Antigen (Rapid) - Final Laboratory Results 08/13/20 08:37: POC Glucose 138 H 08/13/20 11:41: POC Glucose 141 H 08/13/20 14:21: Sodium 135 L, Potassium 3.9, Chloride 95 L, Carbon Dioxide 37.0 H, Anion Gap 3 L, BUN 25 H, Creatinine 1.01, Estim Creat Clear Calc 65.09, Est GFR (MDRD) Af Amer 92, Est GFR (MDRD) Non-Af 76, BUN/Creatinine Ratio 24.8 H, Glucose 215 H, Calcium 9.0, Phosphorus 3.5, Magnesium 2.2 08/13/20 17:39: POC Glucose 230 H 08/13/20 22:57: POC Glucose 226 H 08/14/20 05:55: WBC 14.9 H, RBC 3.80 L, Hgb 10.9 L, Hct 35.6 L, MCV 93.7, MCH 28.7, MCHC 30.6 L, RDW Std Deviation 47.8 H, RDW Coeff of Sacha 13.9, Plt Count 308, MPV 10.4, Immature Gran % (Auto) 0.500, Neut % (Auto) 81.3 H, Lymph % (Auto) 5.4 L, [place] % (Auto) 8.3, Eos % (Auto) 4.0, Baso % (Auto) 0.5, Absolute Neuts (auto) 12.1 H, Absolute Lymphs (auto) 0.81 L, Nucleated RBC % 0 08/14/20 05:55: Sodium 138, Potassium 3.8, Chloride 94 L, Carbon Dioxide 40.0 H, Anion Gap 4 L, BUN 38 H, Creatinine 1.17, Estim Creat Clear Calc 56.19, Est GFR (MDRD) Af Amer 77, Est GFR (MDRD) Non-Af 64, BUN/Creatinine Ratio 32.5 H, Glucose 136 H, Calcium 8.9, Phosphorus 3.5, Magnesium 2.0 08/14/20 06:44: POC Glucose 144 H Current Medications Acetaminophen (Acetaminophen 325 Mg Tablet) 650 mg PO Q6H PRN PRN PRN Reason: Pain Score 1-10/Temp > 100.7 F Al Hydroxide/Mg Hydroxide (Mag Hydrox/Al Hydrox/Simeth 30 Ml Udc) 30 ml PO Q6H PRN PRN PRN Reason: Gastric Burning Albuterol Sulfate (Albuterol 2.5 Mg/3 Ml Vial.Neb.) 2.5 mg INHALATION Q2H PRN PRN PRN Reason: SOB/Wheezing Aspirin (Aspirin E.C. 81 Mg Tablet) 81 mg PO DAILYCM [facility] Last Admin: 08/13/20 08:23 Dose: 81 mg Documented by: Enoxaparin Sodium (Enoxaparin 40 Mg/0.4 Ml Syringe) 40 mg SC DAILY [facility] Last Admin: 08/13/20 08:24 Dose: 40 mg Documented by: Furosemide (Furosemide 40 Mg/4 Ml Vial) 40 mg IV BID@1000,1800 [facility] Last Admin: 08/13/20 17:44 Dose: 40 mg Documented by: Heparin Sodium (Beef Lung) (Heparin Pf Lock 10 Units/Ml 50 Units/5 Ml Syringe) 50 units IV UD PRN PRN Reason: PICC Line Heparin Flush Hydralazine HCl (Hydralazine 20 Mg/Ml Vial) 10 mg IV Q4H PRN PRN PRN Reason: BLOOD PRESSURE ELEVATION Sodium Chloride () 250 mls @ 15 mls/hr IV .[id number] PRN PRN Reason: Additional IVPB Infusion Piperacillin Sod/Tazobactam (Sod 3.375 gm/ Sodium Chloride) 50 mls @ 12.5 mls/hr IV Q8 [facility] Last Admin: 08/14/20 05:59 Dose: 12.5 mls/hr Documented by: Insulin Human Lispro (Insulin Lispro 100 Unit/Ml Insuln.Pen) 0 unit SC ACHS [facility]; Protocol Last Admin: 08/14/20 06:45 Dose: Not Given Documented by: Losartan Potassium (Losartan Potassium 25 Mg Tablet) 25 mg PO DAILY [facility] Last Admin: 08/13/20 08:23 Dose: 25 mg Documented by: Metoprolol Succinate (Metoprolol(Xl)Succ 25 Mg Tablet) 12.5 mg PO DAILY [facility] Last Admin: 08/13/20 08:24 Dose: 12.5 mg Documented by: Montelukast Sodium (Montelukast 10 Mg Tablet) 10 mg PO DAILY [facility] Last Admin: 08/13/20 08:23 Dose: 10 mg Documented by: Morphine Sulfate (Morphine 2 Mg/Ml Syringe) 2 mg IV Q3H PRN PRN PRN Reason: Pain Score 6-10/10/resp failur Nutritional Formula (Nutritional Supplement (Christian) Packet) 1 packet PO BIDCM [facility] Last Admin: 08/13/20 17:44 Dose: 1 packet Documented by: Oxycodone HCl (Oxycodone 5 Mg Tablet) 5 mg PO Q4H PRN PRN PRN Reason: Pain Score 4-5 Pantoprazole Sodium (Pantoprazole Sodium 40 Mg Tablet) 40 mg PO DAILY [facility] Last Admin: 08/13/20 08:24 Dose: 40 mg Documented by: Prochlorperazine Edisylate (Prochlorperazine 10 Mg/2 Ml Vial) 5 mg IV Q4H PRN PRN PRN Reason: Breakthrough Nausea/Vomiting Sodium Chloride (0.9% Saline Lock 10 Ml Syringe) 10 - 40 ml IV UD PRN PRN Reason: Open End PICC Flush Last Admin: 08/13/20 17:44 Dose: 10 ml Documented by: Sodium Chloride (0.9 % Nacl (Sterile) Posiflush 10 Ml) 10 - 40 ml IV UD PRN PRN Reason: Port access or dressing change Sodium Chloride (0.9% Saline Lock 10 Ml Syringe) 10 - 40 ml IV UD PRN PRN Reason: SALINE FLUSH Medical Necessity - Tobacco Use Smoking Status: Never smoker Assessment/Plan All Active Problems (Last Updated 07/30/20 @ 13:[address] Fly Taylor MD) Osteomyelitis of great toe of right foot (Acute) Acute hypoxic respiratory failure (Acute) Acute on chronic systolic and diastolic heart failure, NYHA class 3 (Acute) RECOMMENDATIONS: 1. Mobilize and incentive spirometer as tolerated 2. Continue Lasix twice daily for now 3. Recheck electrolytes on a daily basis 4. Antibiotics per infectious disease 5. Wean oxygen as tolerated. Walking oximetry prior to discharge IMPRESSIONS: 1. Acute combined respiratory failure Clinical suspicion for a significant component of acute on chronic combined heart failure leading to pulmonary edema with pleural effusion. However, patient did have some hypercarbia in the ER which may be secondary to respiratory muscle fatigue. Patient has responded well to diuretic therapy. This indicates a significant component of acute on chronic combined CHF as an etiology. Patient does have positive cultures, but this may be secondary to his toe infection. Infectious disease is following. 2. Acute on chronic combined CHF/nonsustained V. tach/peripheral vascular disease/carotid artery disease status post right carotid endarterectomy Patient has responded to diuretic therapy well. Patient appears to have responded well to magnesium supplementation. Could likely transition Lasix to p.o. twice daily, but defer to hospitalist. 3. Acute metabolic encephalopathy/delirium Improving. Multiple possible etiologies. Will increase nasal cannula oxygen to help with O2 status. Patient also is at risk for electrolyte abnormalities. Patient with significant peripheral vascular disease and lower extremity ulcer. Patient was on ertapenem, but was changed to Vanco and Zosyn. ID to see today. 4. Diabetes mellitus type 2 Patient has not required any coverage. Likely okay to transition to p.o. diet and transition to before every meal and at bedtime blood sugar checks with sliding scale insulin. 5. Hypertension/hyperlipidemia/GERD/advanced age/protracted hospitalization Complicates care, management, recovery and prognosis. Hypertensive medications as discussed above. Okay to continue with other baseline medications. Clinical suspicion for a need of therapy following this hospitalization. Case management is aware. Inpatient E&M: 89189 Subs Hosp L2
[2020-08-14] MEDS: Aspirin E.C. 81 MG Tablet PO (09:20)
[2020-08-14] MEDS: Enoxaparin 40 MG/0.4 ML Syringe SC (09:21)
[2020-08-14] MEDS: Metoprolol(XL)Succ 25 MG Tablet 12.5 MG PO (09:21)
[2020-08-14] MEDS: Furosemide 40 MG/4 ML Vial IV ×2 (09:21→17:12)
[2020-08-14] MEDS: Losartan Potassium 25 MG Tablet PO (09:21)
[2020-08-14] MEDS: Montelukast 10 MG Tablet PO (09:21)
[2020-08-14] MEDS: Pantoprazole Sodium 40 MG Tablet PO (09:21)
[2020-08-14] MEDS: Insulin Lispro 100 UNIT/ML INSULN.PEN SC ×3 (11:37→21:40)
[2020-08-14 14:36] LABS: Bedside Glucose 189 mg/dL (70-110)
--- NOTE | 2020-08-14 16:04 | PN_ITS ---
Patient Problems: Active and Suspected Problems (Last Updated 07/30/20 @ 13:[address] Fly Taylor MD) Osteomyelitis of great toe of right foot (Acute) Acute hypoxic respiratory failure (Acute) Acute on chronic systolic and diastolic heart failure, NYHA class 3 (Acute) Reason for Visit: CHF Subjective: Breathing well. Vitals/I&O's: Vital Signs Temp Pulse Resp BP Pulse Ox 36.7 C 77 16 157/87 H 100 08/14/20 11:10 08/14/20 15:46 08/14/20 11:10 08/14/20 11:10 08/14/20 11:10 Oxygen Flow Rate (L/min) 1 Oxygen Delivery Method Nasal Cannula Weight: 85.2 kg Body Mass Index (BMI) 27.6 Intake and Output for Last 24 Hours 08/12/20 08/13/20 08/14/20 23:59 23:59 23:59 Intake Total 375 / 375 1101.22 / 1101.22 328.67 / 328.67 Output Total 4650 / 4650 2650 / 2950 1675 / 1675 Balance -4275 / -4275 -1548.78 / -1848.78 -1346.33 / -1346.33 General: Alert, No apparent distress HEENT: Atraumatic, Normocephalic Oral: Moist Mucosa, No Gingival or Mucosal Lesions/ Ulcerations Neck: No Nodes, Thyroid Normal Size and Texture Lungs: Normal air movement, - - coarse breath sounds Cardiovascular: Regular rate, Regular Rhythm, Normal S1, Normal S2, No murmurs Abdomen: Bowel Sounds Present, Soft, Non Tender, Non-Distended, No Hepato- splenomegaly Extremities: No edema, No Calf Tenderness Skin: No rashes, No breakdown Psych/Mental Status: Normal Affect, Appropriate Microbiology Past 72 Hours 08/12/20 14:45 Sputum, Induced/Lukens Gram Stain - Final 08/12/20 14:45 Sputum, Induced/Lukens Respiratory Culture - Final Yeast, not Marissa albicans 08/12/20 13:50 Urine, Clean Catch Urine Culture - Final Culture exhibits no growth. 08/12/20 11:10 Blood Culture (Wb) - Pic Blood Culture - Preliminary No growth in 48 hours. 08/12/20 11:05 Blood Culture (Wb) - Right Hand Blood Culture - Preliminary No growth in 48 hours. 08/12/20 11:35 Mucosa - Nose SARS-CoV-2 Antigen (Rapid) - Final Laboratory Results 08/13/20 17:39: POC Glucose 230 H 08/13/20 22:57: POC Glucose 226 H 08/14/20 05:55: WBC 14.9 H, RBC 3.80 L, Hgb 10.9 L, Hct 35.6 L, MCV 93.7, MCH 28.7, MCHC 30.6 L, RDW Std Deviation 47.8 H, RDW Coeff of Sacha 13.9, Plt Count 308, MPV 10.4, Immature Gran % (Auto) 0.500, Neut % (Auto) 81.3 H, Lymph % (Auto) 5.4 L, [place] % (Auto) 8.3, Eos % (Auto) 4.0, Baso % (Auto) 0.5, Absolute Neuts (auto) 12.1 H, Absolute Lymphs (auto) 0.81 L, Nucleated RBC % 0 08/14/20 05:55: Sodium 138, Potassium 3.8, Chloride 94 L, Carbon Dioxide 40.0 H, Anion Gap 4 L, BUN 38 H, Creatinine 1.17, Estim Creat Clear Calc 56.19, Est GFR (MDRD) Af Amer 77, Est GFR (MDRD) Non-Af 64, BUN/Creatinine Ratio 32.5 H, Glucose 136 H, Calcium 8.9, Phosphorus 3.5, Magnesium 2.0 08/14/20 06:44: POC Glucose 144 H 08/14/20 11:36: POC Glucose 189 H Current Medications Acetaminophen (Acetaminophen 325 Mg Tablet) 650 mg PO Q6H PRN PRN PRN Reason: Pain Score 1-10/Temp > 100.7 F Al Hydroxide/Mg Hydroxide (Mag Hydrox/Al Hydrox/Simeth 30 Ml Udc) 30 ml PO Q6H PRN PRN PRN Reason: Gastric Burning Albuterol Sulfate (Albuterol 2.5 Mg/3 Ml Vial.Neb.) 2.5 mg INHALATION Q2H PRN PRN PRN Reason: SOB/Wheezing Aspirin (Aspirin E.C. 81 Mg Tablet) [facility] Admin: 08/14/20 09:20 Dose: 81 mg Documented by: Enoxaparin Sodium (Enoxaparin 40 Mg/0.4 Ml Syringe) 40 mg SC DAILY [facility] [place] Last Admin: 08/14/20 09:21 Dose: 40 mg Documented by: Furosemide (Furosemide 40 Mg/4 Ml Vial) 40 mg IV BID@1000,1800 [facility] Last Admin: 08/14/20 09:21 Dose: 40 mg Documented by: Heparin Sodium (Beef Lung) (Heparin Pf Lock 10 Units/Ml 50 Units/5 Ml Syringe) 50 units IV UD PRN PRN Reason: PICC Line Heparin Flush Hydralazine HCl (Hydralazine 20 Mg/Ml Vial) 10 mg IV Q4H PRN PRN PRN Reason: BLOOD PRESSURE ELEVATION Sodium Chloride () 250 mls @ 15 mls/hr IV .[id number] PRN PRN Reason: Additional IVPB Infusion Last Infusion: 08/14/20 13:52 Dose: 0 mls/hr Documented by: Piperacillin Sod/Tazobactam (Sod 3.375 gm/ Sodium Chloride) 50 mls @ 12.5 mls/hr IV Q8 [facility] Last Admin: 08/14/20 13:33 Dose: 12.5 mls/hr Documented by: Insulin Human Lispro (Insulin Lispro 100 Unit/Ml Insuln.Pen) 0 unit SC [facility] [place]; Protocol Last Admin: 08/14/20 11:37 Dose: 2 units Documented by: Losartan Potassium (Losartan Potassium 25 Mg Tablet) 25 mg PO DAILY [facility] Last Admin: 08/14/20 09:21 Dose: 25 mg Documented by: Metoprolol Succinate (Metoprolol(Xl)Succ 25 Mg Tablet) 12.5 mg PO DAILY [facility] Last Admin: 08/14/20 09:21 Dose: 12.5 mg Documented by: Montelukast Sodium (Montelukast 10 Mg Tablet) 10 mg PO DAILY [facility] [place] Last Admin: 08/14/20 09:21 Dose: 10 mg Documented by: Morphine Sulfate (Morphine 2 Mg/Ml Syringe) 2 mg IV Q3H PRN PRN PRN Reason: Pain Score 6-10/10/resp failur Nutritional Formula (Nutritional Supplement (Christian) Packet) 1 packet PO BIDCM [facility] [place] Last Admin: 08/14/20 09:20 Dose: 1 packet Documented by: Oxycodone HCl (Oxycodone 5 Mg Tablet) 5 mg PO Q4H PRN PRN PRN Reason: Pain Score 4-5 Pantoprazole Sodium (Pantoprazole Sodium 40 Mg Tablet) 40 mg PO DAILY [facility] Last Admin: 08/14/20 09:21 Dose: 40 mg Documented by: Prochlorperazine Edisylate (Prochlorperazine 10 Mg/2 Ml Vial) 5 mg IV Q4H PRN PRN PRN Reason: Breakthrough Nausea/Vomiting Sodium Chloride (0.9% Saline Lock 10 Ml Syringe) 10 - 40 ml IV UD PRN PRN Reason: Open End PICC Flush Last Admin: 08/13/20 17:44 Dose: 10 ml Documented by: Sodium Chloride (0.9 % Nacl (Sterile) Posiflush 10 Ml) 10 - 40 ml IV UD PRN PRN Reason: Port access or dressing change Sodium Chloride (0.9% Saline Lock 10 Ml Syringe) 10 - 40 ml IV UD PRN PRN Reason: SALINE FLUSH STROKE Vital Signs/Narrative: Vital Signs Pulse 08/14/20 15:46 77 08/14/20 13:26 56 L Medical Necessity - Tobacco Use Smoking Status: Never smoker Assessment/Plan All Active Problems (Last Updated 07/30/20 @ 13:[address] Fly Taylor MD) Osteomyelitis of great toe of right foot (Acute) Acute hypoxic respiratory failure (Acute) Acute on chronic systolic and diastolic heart failure, NYHA class 3 (Acute) 1. acute hypoxic and hypercapnic respiratory failure * 2/2 CHF exacerbation +/- pneumonia * oxygen weaned down * speech therapy eval pending 2. acute HFrEF * EF 25-30% * on IV furosemide * on losartan and metoprolol succinate 3. Right first toe OM * abx through 09/04/2020 (was on amp/SB) 4. presumed gram negative pneumonia * on pip/tazo * pulm toilet 5. presumed movement disorder * PD v PSP v MSA * previously recommended follow up with neurologic specialist * pt will need a geriatric driving assessment before he drives again 6. VTE prophylaxis: LMWH Inpatient E&M: [id number] Subs Hosp L2
[2020-08-14] MEDS: 0.9% Saline Lock 10 ML Syringe IV (17:13)
[2020-08-14 17:26] LABS: Bedside Glucose 244 mg/dL (70-110)
[2020-08-14 22:20] LABS: Bedside Glucose 185 mg/dL (70-110)
[2020-08-15] VITALS (8 sets, daily range): BP systolic 105–146; BP diastolic 56–71; PULSE 64–89; RESP 18; TEMP 36.3–36.4; O2SAT 95–99
[2020-08-15] MEDS: 0.9% Saline Lock 10 ML Syringe IV ×2 (06:37→09:17)
[2020-08-15] MEDS: Insulin Lispro 100 UNIT/ML INSULN.PEN SC ×3 (06:44→16:30)
[2020-08-15 06:50] LABS: Bedside Glucose 164 mg/dL (70-110)
--- NOTE | 2020-08-15 07:56 | PCS.PANDOC ---
PANDEMIC DOCUMENTATION INITIATED: Date: 08/12/2020 Time: 9169
[2020-08-15 07:59] LABS: Anion Gap 2 (5-15); BUN 41 mg/dL (7-18); BUN/Creat Ratio 37.6 RATIO (10-20); Calcium,Total 8.8 mg/dL (8.5-10.1); Chloride 96 mmol/L (98-107); Creatinine, Serum 1.09 mg/dL (0.70-1.30); EST Glomerular Filtration Rate 69 mL/min (>60); Est Glom Filt Rate - Afr Amer 84 mL/min (>60); Estimated Creatinine Clearance 60.32 ml/min; Glucose 172 mg/dL (74-106); Potassium 3.7 mmol/L (3.5-5.1); Sodium Level 139 mmol/L (136-145)
[2020-08-15] MEDS: Montelukast 10 MG Tablet PO (09:15)
[2020-08-15] MEDS: Pantoprazole Sodium 40 MG Tablet PO (09:15)
[2020-08-15] MEDS: Aspirin E.C. 81 MG Tablet PO (09:15)
[2020-08-15] MEDS: Metoprolol(XL)Succ 25 MG Tablet 12.5 MG PO (09:15)
[2020-08-15] MEDS: Losartan Potassium 25 MG Tablet PO (09:16)
[2020-08-15] MEDS: Enoxaparin 40 MG/0.4 ML Syringe SC (09:16)
[2020-08-15] MEDS: Furosemide 40 MG/4 ML Vial IV (09:17)
--- NOTE | 2020-08-15 09:45 | PN_ITS ---
Patient Problems: Active and Suspected Problems (Last Updated 07/30/20 @ 13:[address] Fly Taylor MD) Osteomyelitis of great toe of right foot (Acute) Acute hypoxic respiratory failure (Acute) Acute on chronic systolic and diastolic heart failure, NYHA class 3 (Acute) Subjective: Patient did well overnight. No acute issues were reported. Patient feels subjectively improved compared to previous. Patient is still requiring 1 L nasal cannula to maintain saturations. Patient denies any nausea. - Physical Exam Vitals/I&O's: Vital Signs Temp Pulse Resp BP Pulse Ox 36.4 C L 86 18 105/63 95 08/15/20 09:20 08/15/20 09:20 08/15/20 09:20 08/15/20 09:20 08/15/20 09:20 Oxygen Flow Rate (L/min) 1 Oxygen Delivery Method Nasal Cannula Weight: 84.3 kg Body Mass Index (BMI) 27.6 Intake and Output for Last 24 Hours 08/13/20 08/14/20 08/15/20 23:59 23:59 23:59 Intake Total 1101.22 / 1101.22 998.67 / 1118.67 414.75 / 414.75 Output Total 2650 / 2950 2475 / 3025 900 / 900 Balance -1548.78 / -1848.78 -1476.33 / -1906.33 -485.25 / -485.25 General: Alert, Cooperative, No apparent distress, - - Slight dysarthria. No conversational dyspnea. HEENT: Atraumatic, PERRLA, EOMI, Normocephalic, - - No scleral icterus or injection noted Oral: Moist Mucosa, No Gingival or Mucosal Lesions/ Ulcerations Neck: Supple, No JVD, No Nodes, Trachea Midline Lungs: No rhonchi, No wheeze, No rales, Diminished Cardiovascular: Regular rate, Regular Rhythm, Normal S1, Normal S2, Murmur, No rub noted, No Gallop Abdomen: Bowel Sounds Present, Soft, Non Tender, Non-Distended Extremities: No clubbing, No cyanosis, Edema Skin: - - No change compared to previous. Big toe is dressed Musculoskeletal: No Tenderness to Palpation of Joints or Extremities Lymphatic: No Cervical, Supraclavicular, or Inguinal Adenopathy Neurological: Cranial nerves II-XII grossly intact, Neuro grossly intact, Motor Exam 5/5 strength throughout Psych/Mental Status: Alert and oriented to time, place, person, mood and affect Microbiology Past 72 Hours 08/12/20 14:45 Sputum, Induced/Lukens Gram Stain - Final 08/12/20 14:45 Sputum, Induced/Lukens Respiratory Culture - Final Yeast, not Marissa albicans 08/12/20 13:50 Urine, Clean Catch Urine Culture - Final Culture exhibits no growth. 08/12/20 11:10 Blood Culture (Wb) - Pic Blood Culture - Preliminary No growth in 48 hours. 08/12/20 11:05 Blood Culture (Wb) - Right Hand Blood Culture - Preliminary No growth in 48 hours. 08/12/20 11:35 Mucosa - Nose SARS-CoV-2 Antigen (Rapid) - Final Laboratory Results 08/14/20 11:36: POC Glucose 189 H 08/14/20 17:07: POC Glucose 244 H 08/14/20 21:39: POC Glucose 185 H 08/15/20 06:43: POC Glucose 164 H 08/15/20 07:25: Sodium 139, Potassium 3.7, Chloride 96 L, Carbon Dioxide 41.0 H, Anion Gap 2 L, BUN 41 H, Creatinine 1.09, Estim Creat Clear Calc 60.32, Est GFR (MDRD) Af Amer 84, Est GFR (MDRD) Non-Af 69, BUN/Creatinine Ratio 37.6 H, Glucose 172 H, Calcium 8.8 Current Medications Acetaminophen (Acetaminophen 325 Mg Tablet) 650 mg PO Q6H PRN PRN PRN Reason: Pain Score 1-10/Temp > 100.7 F Al Hydroxide/Mg Hydroxide (Mag Hydrox/Al Hydrox/Simeth 30 Ml Udc) 30 ml PO Q6H PRN PRN PRN Reason: Gastric Burning Albuterol Sulfate (Albuterol 2.5 Mg/3 Ml Vial.Neb.) 2.5 mg INHALATION Q2H PRN PRN PRN Reason: SOB/Wheezing Aspirin (Aspirin E.C. 81 Mg Tablet) [facility] Last Admin: 08/15/20 09:15 Dose: 81 mg Documented by: Enoxaparin Sodium (Enoxaparin 40 Mg/0.4 Ml Syringe) 40 mg SC DAILY [facility] Last Admin: 08/15/20 09:16 Dose: 40 mg Documented by: Furosemide (Furosemide 40 Mg/4 Ml Vial) 40 mg IV BID@1000,1800 [facility] Last Admin: 08/15/20 09:17 Dose: 40 mg Documented by: Heparin Sodium (Beef Lung) (Heparin Pf Lock 10 Units/Ml 50 Units/5 Ml Syringe) 50 units IV UD PRN PRN Reason: PICC Line Heparin Flush Hydralazine HCl (Hydralazine 20 Mg/Ml Vial) 10 mg IV Q4H PRN PRN PRN Reason: BLOOD PRESSURE ELEVATION Sodium Chloride () 250 mls @ 15 mls/hr IV .[id number] PRN PRN Reason: Additional IVPB Infusion Last Infusion: 08/15/20 03:00 Dose: 0 mls/hr Documented by: Piperacillin Sod/Tazobactam (Sod 3.375 gm/ Sodium Chloride) 50 mls @ 12.5 mls/hr IV Q8 [facility] Last Admin: 08/15/20 06:37 Dose: 12.5 mls/hr Documented by: Insulin Human Lispro (Insulin Lispro 100 Unit/Ml Insuln.Pen) 0 unit SC ACHS [facility]; Protocol Last Admin: 08/15/20 06:44 Dose: 2 units Documented by: Losartan Potassium (Losartan Potassium 25 Mg Tablet) 25 mg PO DAILY [facility] Last Admin: 08/15/20 09:16 Dose: 25 mg Documented by: Metoprolol Succinate (Metoprolol(Xl)Succ 25 Mg Tablet) 12.5 mg PO DAILY [facility] Last Admin: 08/15/20 09:15 Dose: 12.5 mg Documented by: Montelukast Sodium (Montelukast 10 Mg Tablet) 10 mg PO DAILY [facility] Last Admin: 08/15/20 09:15 Dose: 10 mg Documented by: Morphine Sulfate (Morphine 2 Mg/Ml Syringe) 2 mg IV Q3H PRN PRN PRN Reason: Pain Score 6-10/10/resp failur Nutritional Formula (Nutritional Supplement (Christian) Packet) 1 packet PO BIDCM [facility] Last Admin: 08/15/20 09:16 Dose: 1 packet Documented by: Oxycodone HCl (Oxycodone 5 Mg Tablet) 5 mg PO Q4H PRN PRN PRN Reason: Pain Score 4-5 Pantoprazole Sodium (Pantoprazole Sodium 40 Mg Tablet) 40 mg PO DAILY [facility] Last Admin: 08/15/20 09:15 Dose: 40 mg Documented by: Prochlorperazine Edisylate (Prochlorperazine 10 Mg/2 Ml Vial) 5 mg IV Q4H PRN PRN PRN Reason: Breakthrough Nausea/Vomiting Sodium Chloride (0.9% Saline Lock 10 Ml Syringe) 10 - 40 ml IV UD PRN PRN Reason: Open End PICC Flush Last Admin: 08/15/20 09:17 Dose: 10 ml Documented by: Sodium Chloride (0.9 % Nacl (Sterile) Posiflush 10 Ml) 10 - 40 ml IV UD PRN PRN Reason: Port access or dressing change Sodium Chloride (0.9% Saline Lock 10 Ml Syringe) 10 - 40 ml IV UD PRN PRN Reason: SALINE FLUSH Medical Necessity - Tobacco Use Smoking Status: Never smoker Assessment/Plan All Active Problems (Last Updated 07/30/20 @ 13:[address] Fly Taylor MD) Osteomyelitis of great toe of right foot (Acute) Acute hypoxic respiratory failure (Acute) Acute on chronic systolic and diastolic heart failure, NYHA class 3 (Acute) RECOMMENDATIONS: 1. Mobilize and incentive spirometer as tolerated 2. Consider decrease in Lasix therapy 3. Recheck electrolytes on a daily basis 4. Antibiotics per infectious disease 5. Wean oxygen as tolerated. Walking oximetry prior to discharge 6. Hemodynamically stable on minimal nasal cannula oxygen. Will sign off from a pulmonary perspective IMPRESSIONS: 1. Acute combined respiratory failure Clinical suspicion for a significant component of acute on chronic combined heart failure leading to pulmonary edema with pleural effusion. However, patient did have some hypercarbia in the ER which may be secondary to respiratory muscle fatigue. Patient has responded well to diuretic therapy, but appears to be developing a contraction alkalosis. Consider decreasing diuretics. This indicates a significant component of acute on chronic combined CHF as an etiology. Patient does have positive cultures, but this may be secondary to his toe infection. Infectious disease is following. 2. Acute on chronic combined CHF/nonsustained V. tach/peripheral vascular disease/carotid artery disease status post right carotid endarterectomy Patient has responded to diuretic therapy well. Patient appears to have responded well to magnesium supplementation. Will likely need to decrease diuretic dosing given the development of contraction alkalosis. 3. Acute metabolic encephalopathy/delirium Improving. Multiple possible etiologies. Will increase nasal cannula oxygen to help with O2 status. Patient also is at risk for electrolyte abnormalities. Patient with significant peripheral vascular disease and lower extremity ulcer. Patient was on ertapenem, but was changed to Vanco and Zosyn. ID to see today. 4. Diabetes mellitus type 2 Patient has not required any coverage. On p.o. diet and coverage before every meal and at bedtime blood sugar checks with sliding scale insulin. 5. Hypertension/hyperlipidemia/GERD/advanced age/protracted hospitalization Complicates care, management, recovery and prognosis. Hypertensive medications as discussed above. Okay to continue with other baseline medications. Clinical suspicion for a need of therapy following this hospitalization. Case management is aware. Inpatient E&M: 21759 Subs Hosp L2
[2020-08-15 11:30] LABS: Bedside Glucose 278 mg/dL (70-110)
--- NOTE | 2020-08-15 11:45 | PN_ITS ---
Patient Problems: Active and Suspected Problems (Last Updated 07/30/20 @ 13:[address] Fly Taylor MD) Osteomyelitis of great toe of right foot (Acute) Acute hypoxic respiratory failure (Acute) Acute on chronic systolic and diastolic heart failure, NYHA class 3 (Acute) Reason for Visit: CHF Subjective: Breathing well on 1 liter NC. Vitals/I&O's: Vital Signs Temp Pulse Resp BP Pulse Ox 36.4 C L 86 18 105/63 95 08/15/20 09:20 08/15/20 09:20 08/15/20 09:20 08/15/20 09:20 08/15/20 09:20 Oxygen Flow Rate (L/min) 1 Oxygen Delivery Method Nasal Cannula Weight: 84.3 kg Body Mass Index (BMI) 27.6 Intake and Output for Last 24 Hours 08/13/20 08/14/20 08/15/20 23:59 23:59 23:59 Intake Total 1101.22 / 1101.22 998.67 / 1118.67 464.75 / 464.75 Output Total 2650 / 2950 2475 / 3025 900 / 900 Balance -1548.78 / -1848.78 -1476.33 / -1906.33 -435.25 / -435.25 General: Alert, No apparent distress, - - hypophonia. masked facies. HEENT: Atraumatic, Normocephalic Oral: Moist Mucosa, No Gingival or Mucosal Lesions/ Ulcerations Neck: No Nodes, Thyroid Normal Size and Texture Lungs: Clear to auscultation, Normal air movement, No rhonchi, No wheeze Cardiovascular: Regular rate, Regular Rhythm, Normal S1, Normal S2 Abdomen: Bowel Sounds Present, Soft, Non Tender, Non-Distended, No Hepato- splenomegaly Extremities: No edema, No Calf Tenderness Skin: No rashes, No breakdown Psych/Mental Status: Normal Affect, Appropriate Microbiology Past 72 Hours 08/12/20 14:45 Sputum, Induced/Lukens Gram Stain - Final 08/12/20 14:45 Sputum, Induced/Lukens Respiratory Culture - Final Yeast, not Marissa albicans 08/12/20 13:50 Urine, Clean Catch Urine Culture - Final Culture exhibits no growth. 08/12/20 11:10 Blood Culture (Wb) - Pic Blood Culture - Preliminary No growth in 48 hours. 08/12/20 11:05 Blood Culture (Wb) - Right Hand Blood Culture - Preliminary No growth in 48 hours. 08/12/20 11:35 Mucosa - Nose SARS-CoV-2 Antigen (Rapid) - Final Laboratory Results 08/14/20 11:36: POC Glucose 189 H 08/14/20 17:07: POC Glucose 244 H 08/14/20 21:39: POC Glucose 185 H 08/15/20 06:43: POC Glucose 164 H 08/15/20 07:25: Sodium 139, Potassium 3.7, Chloride 96 L, Carbon Dioxide 41.0 H, Anion Gap 2 L, BUN 41 H, Creatinine 1.09, Estim Creat Clear Calc 60.32, Est GFR (MDRD) Af Amer 84, Est GFR (MDRD) Non-Af 69, BUN/Creatinine Ratio 37.6 H, Glucose 172 H, Calcium 8.8 08/15/20 11:25: POC Glucose 278 H Current Medications Acetaminophen (Acetaminophen 325 Mg Tablet) 650 mg PO Q6H PRN PRN PRN Reason: Pain Score 1-10/Temp > 100.7 F Al Hydroxide/Mg Hydroxide (Mag Hydrox/Al Hydrox/Simeth 30 Ml Udc) 30 ml PO Q6H PRN PRN PRN Reason: Gastric Burning Albuterol Sulfate (Albuterol 2.5 Mg/3 Ml Vial.Neb.) 2.5 mg INHALATION Q2H PRN PRN PRN Reason: SOB/Wheezing Aspirin (Aspirin E.C. 81 Mg Tablet) [facility] Last Admin: 08/15/20 09:15 Dose: 81 mg Documented by: Enoxaparin Sodium (Enoxaparin 40 Mg/0.4 Ml Syringe) 40 mg SC DAILY [facility] Last Admin: 08/15/20 09:16 Dose: 40 mg Documented by: Furosemide (Furosemide 40 Mg/4 Ml Vial) 40 mg IV BID@1000,1800 [facility] Last Admin: 08/15/20 09:17 Dose: 40 mg Documented by: Heparin Sodium (Beef Lung) (Heparin Pf Lock 10 Units/Ml 50 Units/5 Ml Syringe) 50 units IV UD PRN PRN Reason: PICC Line Heparin Flush Hydralazine HCl (Hydralazine 20 Mg/Ml Vial) 10 mg IV Q4H PRN PRN PRN Reason: BLOOD PRESSURE ELEVATION Sodium Chloride () 250 mls @ 15 mls/hr IV .[id number] PRN PRN Reason: Additional IVPB Infusion Last Infusion: 08/15/20 03:00 Dose: 0 mls/hr Documented by: Piperacillin Sod/Tazobactam (Sod 3.375 gm/ Sodium Chloride) 50 mls @ 12.5 mls/hr IV Q8 [facility] Last Infusion: 08/15/20 10:37 Dose: Infused Documented by: Insulin Human Lispro (Insulin Lispro 100 Unit/Ml Insuln.Pen) 0 unit SC ACHS [facility]; Protocol Last Admin: 08/15/20 11:26 Dose: 6 units Documented by: Losartan Potassium (Losartan Potassium 25 Mg Tablet) 25 mg PO DAILY [facility] Last Admin: 08/15/20 09:16 Dose: 25 mg Documented by: Metoprolol Succinate (Metoprolol(Xl)Succ 25 Mg Tablet) 12.5 mg PO DAILY [facility] Last Admin: 08/15/20 09:15 Dose: 12.5 mg Documented by: Montelukast Sodium (Montelukast 10 Mg Tablet) 10 mg PO DAILY [facility] Last Admin: 08/15/20 09:15 Dose: 10 mg Documented by: Morphine Sulfate (Morphine 2 Mg/Ml Syringe) 2 mg IV Q3H PRN PRN PRN Reason: Pain Score 6-10/10/resp failur Nutritional Formula (Nutritional Supplement (Christian) Packet) 1 packet PO BIDCM [facility] Last Admin: 08/15/20 09:16 Dose: 1 packet Documented by: Oxycodone HCl (Oxycodone 5 Mg Tablet) 5 mg PO Q4H PRN PRN PRN Reason: Pain Score 4-5 Pantoprazole Sodium (Pantoprazole Sodium 40 Mg Tablet) 40 mg PO DAILY [facility] Last Admin: 08/15/20 09:15 Dose: 40 mg Documented by: Prochlorperazine Edisylate (Prochlorperazine 10 Mg/2 Ml Vial) 5 mg IV Q4H PRN PRN PRN Reason: Breakthrough Nausea/Vomiting Sodium Chloride (0.9% Saline Lock 10 Ml Syringe) 10 - 40 ml IV UD PRN PRN Reason: Open End PICC Flush Last Admin: 08/15/20 09:17 Dose: 10 ml Documented by: Sodium Chloride (0.9 % Nacl (Sterile) Posiflush 10 Ml) 10 - 40 ml IV UD PRN PRN Reason: Port access or dressing change Sodium Chloride (0.9% Saline Lock 10 Ml Syringe) 10 - 40 ml IV UD PRN PRN Reason: SALINE FLUSH STROKE Vital Signs/Narrative: Vital Signs Temp Pulse Resp BP Pulse Ox 08/15/20 09:20 36.4 C L 86 18 105/63 95 08/15/20 09:15 86 105/63 Medical Necessity - Tobacco Use Smoking Status: Never smoker Assessment/Plan All Active Problems (Last Updated 07/30/20 @ 13:[address] Fly Taylor MD) Osteomyelitis of great toe of right foot (Acute) Acute hypoxic respiratory failure (Acute) Acute on chronic systolic and diastolic heart failure, NYHA class 3 (Acute) 1. acute hypoxic and hypercapnic respiratory failure * 2/2 CHF exacerbation doubt pneumonia * No fever, has had leukocytosis since 07/26/2020 * oxygen weaned down very well. * speech therapy eval pending * sputum culture shows yeast, likely contaminant. 2. acute HFrEF * EF 25-30% * change furosemide to PO * on losartan and metoprolol succinate 3. Right first toe OM * abx through 09/04/2020 (was on amp/SB) 4. presumed gram negative pneumonia * ruled out * on pip/tazo * pulm toilet 5. PAD * not amenable to surgery 7. presumed movement disorder * PD v PSP v MSA * previously recommended follow up with neurologic specialist * pt will need a geriatric driving assessment before he drives again 8. VTE prophylaxis: LMWH 9. DC planning back to TCU Inpatient E&M: [id number] Subs Hosp L2
--- NOTE | 2020-08-15 14:26 | TREXTCAR_ITS ---
- Diet 08/13/20 08:43 Diet: Cardiac: Calorie-Controlled Food consistency:: Soft & Bite Sized Liquid Consistency:: Regular/Thin Dietary Modifications:: Sodium Restricted Is pt able to select menu?: Yes Fluid restriction:: 1500 mL Diet Comments: Supervision at meals, frequent oral care, sips 1 at a time How many daily calories?: 1800 calorie Will recommend soft & bite sized textures / thin liquids with aspiration precautions for supervision at meals, sips 1 at a time, small bites/sips, alternate liquids and solids, upright 90 degrees for po intake and remain upright 30-60 minutes following meals, frequent oral care. - Routine Orders/Code Status Routine Lab Work: [facility] - Wound(s) generalized Wound Type: scabs R great toe Wound Type: Neuropathic/Diabetic Foot Ulcer Dressing Change: Dry Sterile Dressing coccyx Wound Type: Pressure Injury Dressing Change: Mepilex - Therapies Physical Therapy: Eval and Treat Occupational Therapy: Eval and Treat Speech Therapy: Eval and Treat - Allergies/Procedures Done in Hospital Allergies/Adverse Reactions: Allergies [id number] Reductase Inhibitor Adverse Reaction (Severe, Verified 08/12/20 10:51) mylagias lisinopril Adverse Reaction (Verified 08/12/20 10:51) cough - Type of Care/Length of Stay Estimated LOS: Convalescent Care Less Than 30 days Type of Care Needed: Skilled Rehab Potential: Fair Prognosis: Fair - Additional Orders/Day of Discharge Day of Discharge: 08/15/20 - Dietary and Speech Recommendations Dietitian Recommendations/Changes: Will change diet to 1800 calorie; cardiac/sodium-restricted with 1500 ml FR d/t pmhx. Will order Christian BID for wound healing. - Follow Up Care Primary Care Physician: Karen Lowe MD [Primary Care Provider] - Within 2 Weeks Please Follow Up With: Movement Disorder Neurologist When: at [facility] or in 1-2 months Please Follow Up With: Geriatric driving assessment When: PRN, if pt plans to drive again.
--- NOTE | 2020-08-15 14:29 | DS.PCM_ITS ---
Discharge Date and Diagnosis - Problem List Patient Problems: Active and Suspected Problems (Last Updated 07/30/20 @ 13:[address] Fly Taylor MD) Osteomyelitis of great toe of right foot (Acute) Acute hypoxic respiratory failure (Acute) Acute on chronic systolic and diastolic heart failure, NYHA class 3 (Acute) Date of Admission: 08/12/20 Date of Discharge: 08/15/20 - Primary Discharge Diagnosis Acute Problems: Active Problems (Last Updated 07/30/20 @ 13:[address] Fly Taylor MD) Osteomyelitis of great toe of right foot (Acute) Acute hypoxic respiratory failure (Acute) Acute on chronic systolic and diastolic heart failure, NYHA class 3 (Acute) - Secondary Discharge Diagnosis Chronic Problems: Chronic Problems (Last Updated 07/30/20 @ 13:[address] 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 evidence of necrosis (Chronic) Pleural effusion on left (Chronic) loculated per CT Chest 07/2019 thoracentesis 07/2019 Mass of right lung (Chronic) bronchoscopy 07/2019 Old inferior wall myocardial infarction (Chronic) Atherosclerotic heart disease of [place] coronary artery without angina pectoris (Chronic) History of non-ST elevation myocardial infarction (NSTEMI) (Chronic 07/21/17) Ischemic cardiomyopathy (Chronic) H/O coronary artery bypass surgery (Chronic 08/04/17) History of CVA (cerebrovascular accident) (Chronic 07/2017) Right bundle branch block (RBBB) (Chronic) Carotid artery stenosis (Chronic) R CEA 2018 Essential (primary) hypertension (Chronic) Claudication of both lower extremities (Chronic) Peripheral vascular occlusive disease (Chronic) RLE Hospital Course and Treatment Imaging Results: Clinical Impression(s) from Imaging Studies Chest X-Ray 08/12/20 12:07 IMPRESSION: No change from 08/09/2020. Electronically Signed: See Pineda MD at 12:52 EST Tel , Service support , Consultations 08/12/20 17:24 Consult: Onc/Wound/wet suit gluer Routine Comment: Reason for Consult:: multiple wounds CCM: Wil ID: [id number] Operations: None Procedures: None Summary of Care Provided: The patient is a 80 year old M presents with shortness of breath. Patient was hypoxic temporarily required BiPAP but did improve. Patient was treated for both CHF and pneumonia but never had a fever. Unlikely patient had pneumonia but is most likely CHF. While the patient was in the transitional care unit was changed over from Unasyn over to ertapenem. Patient will be changed back to ampicillin/sulbactam upon repeat turn to a nursing home facility. Patient will be on furosemide 40 mg daily with potassium supplementation. 1. acute hypoxic and hypercapnic respiratory failure * 2/2 CHF exacerbation doubt pneumonia * No fever, has had leukocytosis since 07/26/2020 * oxygen weaned down very well. * speech therapy eval pending * sputum culture shows yeast, likely contaminant. 2. acute HFrEF * EF 25-30% * change furosemide to PO * on losartan and metoprolol succinate 3. Right first toe OM * abx through 09/04/2020 (was on amp/SB) 4. presumed gram negative pneumonia * ruled out * pulm toilet 5. PAD * not amenable to surgery 7. presumed movement disorder * PD v PSP v MSA * previously recommended follow up with neurologic specialist * pt will need a geriatric driving assessment before he drives again[] Patient Problems: Active and Suspected Problems (Last Updated 07/30/20 @ 13:[address] Fly Taylor MD) Osteomyelitis of great toe of right foot (Acute) Acute hypoxic respiratory failure (Acute) Acute on chronic systolic and diastolic heart failure, NYHA class 3 (Acute) - Physical Exam Vitals/I&O's: Vital Signs Temp Pulse Resp BP Pulse Ox 36.4 C L 86 18 105/63 95 08/15/20 09:20 08/15/20 09:20 08/15/20 09:20 08/15/20 09:20 08/15/20 09:20 Oxygen Flow Rate (L/min) 1 Oxygen Delivery Method Nasal Cannula Weight: 84.3 kg Body Mass Index (BMI) 27.6 Intake and Output for Last 24 Hours 08/13/20 08/14/20 08/15/20 23:59 23:59 23:59 Intake Total 1101.22 / 1101.22 998.67 / 1118.67 664.75 / 664.75 Output Total 2650 / 2950 2475 / 3025 1275 / 1275 Balance -1548.78 / -1848.78 -1476.33 / -1906.33 -610.25 / -610.25 Microbiology Past 72 Hours 08/12/20 14:45 Sputum, Induced/Lukens Gram Stain - Final 08/12/20 14:45 Sputum, Induced/Lukens Respiratory Culture - Final Yeast, not Marissa albicans 08/12/20 13:50 Urine, Clean Catch Urine Culture - Final Culture exhibits no growth. 08/12/20 11:10 Blood Culture (Wb) - Pic Blood Culture - Preliminary No growth in 48 hours. 08/12/20 11:05 Blood Culture (Wb) - Right Hand Blood Culture - Preliminary No growth in 48 hours. 08/12/20 11:35 Mucosa - Nose SARS-CoV-2 Antigen (Rapid) - Final Laboratory Results 08/14/20 11:36: POC Glucose 189 H 08/14/20 17:07: POC Glucose 244 H 08/14/20 21:39: POC Glucose 185 H 08/15/20 06:43: POC Glucose 164 H 08/15/20 07:25: Sodium 139, Potassium 3.7, Chloride 96 L, Carbon Dioxide 41.0 H, Anion Gap 2 L, BUN 41 H, Creatinine 1.09, Estim Creat Clear Calc 60.32, Est GFR (MDRD) Af Amer 84, Est GFR (MDRD) Non-Af 69, BUN/Creatinine Ratio 37.6 H, Glucose 172 H, Calcium 8.8 08/15/20 11:25: POC Glucose 278 H Current Medications Acetaminophen (Acetaminophen 325 Mg Tablet) 650 mg PO Q6H PRN PRN PRN Reason: Pain Score 1-10/Temp > 100.7 F Al Hydroxide/Mg Hydroxide (Mag Hydrox/Al Hydrox/Simeth 30 Ml Udc) 30 ml PO Q6H PRN PRN PRN Reason: Gastric Burning Albuterol Sulfate (Albuterol 2.5 Mg/3 Ml Vial.Neb.) 2.5 mg INHALATION Q2H PRN PRN PRN Reason: SOB/Wheezing Aspirin (Aspirin E.C. 81 Mg Tablet) [facility] Last Admin: 08/15/20 09:15 Dose: 81 mg Documented by: Enoxaparin Sodium (Enoxaparin 40 Mg/0.4 Ml Syringe) 40 mg SC DAILY [facility] Last Admin: 08/15/20 09:16 Dose: 40 mg Documented by: Furosemide (Furosemide 40 Mg Tablet) 40 mg PO BID@1000,1800 [facility] Heparin Sodium (Beef Lung) (Heparin Pf Lock 10 Units/Ml 50 Units/5 Ml Syringe) 50 units IV UD PRN PRN Reason: PICC Line Heparin Flush Hydralazine HCl (Hydralazine 20 Mg/Ml Vial) 10 mg IV Q4H PRN PRN PRN Reason: BLOOD PRESSURE ELEVATION Sodium Chloride () 250 mls @ 15 mls/hr IV .[id number] PRN PRN Reason: Additional IVPB Infusion Last Infusion: 08/15/20 03:00 Dose: 0 mls/hr Documented by: Insulin Human Lispro (Insulin Lispro 100 Unit/Ml Insuln.Pen) 0 unit SC ACHS SC H; Protocol Last Admin: 08/15/20 11:26 Dose: 6 units Documented by: Losartan Potassium (Losartan Potassium 25 Mg Tablet) 25 mg PO DAILY [facility] Last Admin: 08/15/20 09:16 Dose: 25 mg Documented by: Metoprolol Succinate (Metoprolol(Xl)Succ 25 Mg Tablet) 12.5 mg PO DAILY [facility] Last Admin: 08/15/20 09:15 Dose: 12.5 mg Documented by: Montelukast Sodium (Montelukast 10 Mg Tablet) 10 mg PO DAILY [facility] Last Admin: 08/15/20 09:15 Dose: 10 mg Documented by: Morphine Sulfate (Morphine 2 Mg/Ml Syringe) 2 mg IV Q3H PRN PRN PRN Reason: Pain Score 6-10/10/resp failur Nutritional Formula (Nutritional Supplement (Christian) Packet) [facility] Last Admin: 08/15/20 09:16 Dose: 1 packet Documented by: Oxycodone HCl (Oxycodone 5 Mg Tablet) 5 mg PO Q4H PRN PRN PRN Reason: Pain Score 4-5 Pantoprazole Sodium (Pantoprazole Sodium 40 Mg Tablet) 40 mg PO DAILY [facility] Last Admin: 08/15/20 09:15 Dose: 40 mg Documented by: Prochlorperazine Edisylate (Prochlorperazine 10 Mg/2 Ml Vial) 5 mg IV Q4H PRN PRN PRN Reason: Breakthrough Nausea/Vomiting Sodium Chloride (0.9% Saline Lock 10 Ml Syringe) 10 - 40 ml IV UD PRN PRN Reason: Open End PICC Flush Last Admin: 08/15/20 09:17 Dose: 10 ml Documented by: Sodium Chloride (0.9 % Nacl (Sterile) Posiflush 10 Ml) 10 - 40 ml IV UD PRN PRN Reason: Port access or dressing change Sodium Chloride (0.9% Saline Lock 10 Ml Syringe) 10 - 40 ml IV UD PRN PRN Reason: SALINE FLUSH Discharge Diet: Low fat/ Low Cholesterol, 6 Cup Fluid Restriction Home Medications: Medications to take at Discharge ascorbic acid (vitamin C) 1,000 mg tablet 1 g PO DAILY tab 11/15/19 aspirin 81 mg tablet,delayed release 81 mg PO DAILY 11/15/19 chromium picolinate 1,000 mcg tablet 1,000 mcg PO DAILY 11/15/19 pantoprazole 40 mg tablet,delayed release 40 mg PO DAILY tab 11/15/19 montelukast 10 mg tablet 10 mg PO DAILY 05/16/20 Losartan Potassium [Cozaar] 25 mg PO DAILY 07/31/20 0.9 % Sodium Chloride [Sodium Chloride] 10 - 40 ml IV PRN PRN 08/12/20 Bisacodyl 10 mg RC DAILY PRN PRN 08/12/20 Heparin Sodium,Porcine/Pf [Heparin Flush 10 Units/ml Syr] 50 unit IV PRN PRN 08/12/20 Insulin Human 75/25 [Humalog Mix 75-25 Kwikpen (BKC)] 10 unit SQ DINNER 08/12/20 Insulin Lispro Protamin/Lispro [Insulin Lispro Mix 75-25 Kwkpn] 20 unit SQ BREAKFAST 08/12/20 Metoprolol Succinate 12.5 mg PO DAILY 08/12/20 Acetaminophen [Tylenol Tablet] 650 mg PO Q6H PRN PRN tab 08/15/20 Ampicillin Sodium/Sulbactam Na [Unasyn 3 gm Vial] 3 gm IJ Q8 #1 vial 08/15/20 Furosemide [Lasix] 40 mg PO DAILY #30 tablet 08/15/20 Insulin Lispro [Humalog KwikPen] See Protocol SC ACHS insuln.pen 08/15/20 Potassium Chloride [K-Dur] 10 meq PO DAILY #30 tablet 08/15/20 Following Prescriptions Were Given to Patient: Potassium Chloride [K-Dur] 10 meq PO DAILY #30 tablet Furosemide [Lasix] 40 mg PO DAILY #30 tablet Ampicillin Sodium/Sulbactam Na [Unasyn 3 gm Vial] 3 gm IJ Q8 #1 vial Primary Care Physician: Karen Lowe MD [Primary Care Provider] - Within 2 Weeks Please Follow Up With: Movement Disorder Neurologist When: at [facility] or in 1-2 months Please Follow Up With: Geriatric driving assessment When: PRN, if pt plans to drive again. Disposition: [facility] facility Minutes spent on discharge:: 32 Patient Condition:: Fair Medical Necessity - Tobacco Use Smoking Status: Never smoker Meaningful Use Info Meaningful Use Diagnoses (Choose all that apply): CHF - CHF ANDRE/ARB ordered at discharge?: Yes Documented LVEF (%): 25 Inpatient E&M: [id number] Disch Hosp
--- NOTE | 2020-08-15 15:38 | CASEMGMT ---
Patient is ready for discharge back to TCU. SW called patient's son and let him know. He asked what room patient will go to and SW was not sure, but SW can ask and then call him back. MIRTHA found out patient was going to go to room 8. MIRTHA called Emanuel back and let him know. He thanked SW for the assistance and letting him know about the discharge. SW went to patient's room to notify him, but he was sleeping. Plan; d/c back to [facility] TCU under skilled level of care. Stephie BERUMEN ONCOLOGY TECHNICIAN
[2020-08-15 16:40] LABS: Bedside Glucose 213 mg/dL (70-110)
[2020-08-15] MEDS: Furosemide 40 MG Tablet PO (17:33)
--- NOTE | 2020-08-15 17:36 | PCM.PN.ID ---
Patient Problems: Active and Suspected Problems (Last Updated 07/30/20 @ 13:[address] Fly Taylor MD) Osteomyelitis of great toe of right foot (Acute) Acute hypoxic respiratory failure (Acute) Acute on chronic systolic and diastolic heart failure, NYHA class 3 (Acute) Subjective: Sleeping this afternoon, no fever - Physical Exam Vitals/I&O's: Vital Signs Temp Pulse Resp BP Pulse Ox 97.3 F L 64 18 137/56 H 99 08/15/20 15:05 08/15/20 15:05 08/15/20 15:05 08/15/20 15:05 08/15/20 15:05 Oxygen Flow Rate (L/min) 1 Oxygen Delivery Method Nasal Cannula Weight: 84.3 kg Body Mass Index (BMI) 27.6 Intake and Output for Last 24 Hours 08/13/20 08/14/20 08/15/20 23:59 23:59 23:59 Intake Total 1101.22 / 1101.22 998.67 / 1118.67 664.75 / 664.75 Output Total 2650 / 2950 2475 / 3025 1275 / 1275 Balance -1548.78 / -1848.78 -1476.33 / -1906.33 -610.25 / -610.25 General: No apparent distress Lungs: Clear to auscultation, Normal air movement Cardiovascular: Regular rate, Regular Rhythm Abdomen: Soft, Non Tender, Non-Distended Skin: No rashes Microbiology Past 72 Hours 08/12/20 14:45 Sputum, Induced/Lukens Gram Stain - Final 08/12/20 14:45 Sputum, Induced/Lukens Respiratory Culture - Final Yeast, not Marissa albicans 08/12/20 13:50 Urine, Clean Catch Urine Culture - Final Culture exhibits no growth. 08/12/20 11:10 Blood Culture (Wb) - Pic Blood Culture - Preliminary No growth in 48 hours. 08/12/20 11:05 Blood Culture (Wb) - Right Hand Blood Culture - Preliminary No growth in 48 hours. Laboratory Results 08/14/20 21:39: POC Glucose 185 H 08/15/20 06:43: POC Glucose 164 H 08/15/20 07:25: Sodium 139, Potassium 3.7, Chloride 96 L, Carbon Dioxide 41.0 H, Anion Gap 2 L, BUN 41 H, Creatinine 1.09, Estim Creat Clear Calc 60.32, Est GFR (MDRD) Af Amer 84, Est GFR (MDRD) Non-Af 69, BUN/Creatinine Ratio 37.6 H, Glucose 172 H, Calcium 8.8 08/15/20 11:25: POC Glucose 278 H 08/15/20 16:27: POC Glucose 213 H Current Medications Acetaminophen (Acetaminophen 325 Mg Tablet) 650 mg PO Q6H PRN PRN PRN Reason: Pain Score 1-10/Temp > 100.7 F Al Hydroxide/Mg Hydroxide (Mag Hydrox/Al Hydrox/Simeth 30 Ml Udc) 30 ml PO Q6H PRN PRN PRN Reason: Gastric Burning Albuterol Sulfate (Albuterol 2.5 Mg/3 Ml Vial.Neb.) 2.5 mg INHALATION Q2H PRN PRN PRN Reason: SOB/Wheezing Aspirin (Aspirin E.C. 81 Mg Tablet) [facility] Last Admin: 08/15/20 09:15 Dose: 81 mg Documented by: Enoxaparin Sodium (Enoxaparin 40 Mg/0.4 Ml Syringe) 40 mg SC DAILY [facility] Last Admin: 08/15/20 09:16 Dose: 40 mg Documented by: Furosemide (Furosemide 40 Mg Tablet) 40 mg PO BID@1000,1800 [facility] Last Admin: 08/15/20 17:33 Dose: 40 mg Documented by: Heparin Sodium (Beef Lung) (Heparin Pf Lock 10 Units/Ml 50 Units/5 Ml Syringe) 50 units IV UD PRN PRN Reason: PICC Line Heparin Flush Hydralazine HCl (Hydralazine 20 Mg/Ml Vial) 10 mg IV Q4H PRN PRN PRN Reason: BLOOD PRESSURE ELEVATION Sodium Chloride () 250 mls @ 15 mls/hr IV .[id number] PRN PRN Reason: Additional IVPB Infusion Last Infusion: 08/15/20 16:18 Dose: Infused Documented by: Ampicillin Sodium/Sulbactam (Sodium 3 gm/ Sodium Chloride) 112 mls @ 150 mls/hr IV Q8 [facility] Insulin Human Lispro (Insulin Lispro 100 Unit/Ml Insuln.Pen) 0 unit SC ACHS [facility]; Protocol Last Admin: 08/15/20 16:30 Dose: 4 units Documented by: Losartan Potassium (Losartan Potassium 25 Mg Tablet) 25 mg PO DAILY [facility] Last Admin: 08/15/20 09:16 Dose: 25 mg Documented by: Metoprolol Succinate (Metoprolol(Xl)Succ 25 Mg Tablet) 12.5 mg PO DAILY [facility] Last Admin: 08/15/20 09:15 Dose: 12.5 mg Documented by: Montelukast Sodium (Montelukast 10 Mg Tablet) 10 mg PO DAILY [facility] Last Admin: 08/15/20 09:15 Dose: 10 mg Documented by: Morphine Sulfate (Morphine 2 Mg/Ml Syringe) 2 mg IV Q3H PRN PRN PRN Reason: Pain Score 6-10/10/resp failur Nutritional Formula (Nutritional Supplement (Christian) Packet) 1 packet PO BIDCM [facility] Last Admin: 08/15/20 16:30 Dose: 1 packet Documented by: Oxycodone HCl (Oxycodone 5 Mg Tablet) 5 mg PO Q4H PRN PRN PRN Reason: Pain Score 4-5 Pantoprazole Sodium (Pantoprazole Sodium 40 Mg Tablet) 40 mg PO DAILY [facility] Last Admin: 08/15/20 09:15 Dose: 40 mg Documented by: Prochlorperazine Edisylate (Prochlorperazine 10 Mg/2 Ml Vial) 5 mg IV Q4H PRN PRN PRN Reason: Breakthrough Nausea/Vomiting Sodium Chloride (0.9% Saline Lock 10 Ml Syringe) 10 - 40 ml IV UD PRN PRN Reason: Open End PICC Flush Last Admin: 08/15/20 09:17 Dose: 10 ml Documented by: Sodium Chloride (0.9 % Nacl (Sterile) Posiflush 10 Ml) 10 - 40 ml IV UD PRN PRN Reason: Port access or dressing change Sodium Chloride (0.9% Saline Lock 10 Ml Syringe) 10 - 40 ml IV UD PRN PRN Reason: SALINE FLUSH Medical Necessity - Tobacco Use Smoking Status: Never smoker Route of nutrition/ use of supplements: [] Nutritional Intake: [] IV Site: [] Rosenberg Catheter: [] - Assessment/Plan Antibiotics: [] Assessment/Plan: [] Active and Suspected Problems (Last Updated 07/30/20 @ 13:[address] 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 Carbajal neg so far. Poor bloodflow, angio done and no intervention able to be performed. Cx with MSSA and anaerobes. Has picc, has been on unasyn. Stop date 09/04/20. At TCU, CXR and hypoxia worsened, levaquin added for empiric pneumonia coverage. Now moved to hospital, changed to vanc/zosyn, given lasix. Cxs neg so far, MRSA pcr neg, breathing much better. Transferring back to TCU today, cont unasyn until 09/04/20. Will follow as needed
== END 2020-08-15 18:30 | disposition skilled nursing facility (03) | DRG 291 ==
LOC: ED 11:03 → ICU 14:20 → PCU 08-14 07:01 → ICU 08-14 08:44
PROVIDERS: Internal Medicine Critical Care Medicine; Admitting Provider Internal Medicine; Emergency Provider Emergency Medicine; PCP Internal Medicine
DX: I11.0 Hypertensive heart disease with heart failure (principal); J96.02 Acute respiratory failure with hypercapnia; J96.01 Acute respiratory failure with hypoxia; G93.41 Metabolic encephalopathy; M86.171 Other acute osteomyelitis, right ankle and foot; I47.2 Ventricular tachycardia; I50.43 Acute on chronic combined systolic (congestive) and diastolic (congestive) heart failure; I25.10 Atherosclerotic heart disease of native coronary artery without angina pectoris; E11.69 Type 2 diabetes mellitus with other specified complication; E11.621 Type 2 diabetes mellitus with foot ulcer; I25.5 Ischemic cardiomyopathy; E11.51 Type 2 diabetes mellitus with diabetic peripheral angiopathy without gangrene; E78.5 Hyperlipidemia, unspecified; I25.2 Old myocardial infarction; I44.0 Atrioventricular block, first degree; I45.10 Unspecified right bundle-branch block; L97.514 Non-pressure chronic ulcer of other part of right foot with necrosis of bone; K21.9 Gastro-esophageal reflux disease without esophagitis; Z87.01 Personal history of pneumonia (recurrent); Z95.1 Presence of aortocoronary bypass graft; R29.6 Repeated falls
CPT/HCPCS: 36415; 36592; 36600; 71045; 80048; 80053; 80061; 81001; 82803; 82962; 83605; 83735; 83880; 84100; 84484; 85025; 85610; 85730; 87040; 87070; 87086; 87205; 87426; 87641; 92610; 93005; 94002; 97162; 97166; 99251; 99284; J7050; A4216; G0463; J1940

== ENCOUNTER 2020-08-15 18:45 | Inpatient (IN) | payer MEDICARE, OTHER, SELFPAY ==
[2020-08-12 14:15] VITALS: BMI 27.6
[2020-08-15 18:54] VITALS: BP 132/62; PULSE 73; PULSE 76; RESP 16; TEMP 36.2; O2SAT 97; O2SAT 98; BMI 25.6
--- NOTE | 2020-08-15 21:08 | HP.PCM_ITS ---
Problem List (1) Acute respiratory failure with hypoxia Status: Acute (2) Acute on chronic systolic congestive heart failure Status: Acute (3) Pneumonia Status: Acute (4) Debility Status: Acute (5) Multiple falls Status: Chronic (6) Osteomyelitis of great toe of right foot Status: Acute (7) Peripheral arterial occlusive disease Status: Chronic (8) Hypertension Status: Chronic (9) Stroke Status: Chronic (10) Hyperlipidemia Status: Chronic (11) Diabetes mellitus Status: Chronic (12) CAD (coronary artery disease) Status: Chronic Qualifiers: (13) Carotid artery stenosis Status: Chronic Qualifiers: Comment: R CEA 2017 History of Present Illness Date of Admission: 08/15/20 Chief Complaint: Here for rehabilitation, strengthening, intravenous antibiotics, prior to discharge home alone. 08/12/2020 The patient is a 80 year old Male TCU resident with MSSA osteomyelitis of right great toe on intravenous antibiotics presented to [facility] Emergency Department with shortness of breath. Vancomycin added to Levaquin, Unasyn for bilateral pneumonia. Lasix given for fluid overload. 08/12/2020 Admit to ICU. Lasix drip for acute systolic congestive heart failure. BiPAP for acute respiratory failure. Vancomycin, Zosyn IV for pneumonia, MSSA osteomyelitis right great toe. 08/13/2020 Pulmonary recommended ABG, magnesium supplement, consult infectious disease, bedside swallow to rule out aspiration. 08/14/2020 Wean oxygen for acute respiratory failure. Lasix IV for acute systolic congestive heart failure. Zosyn for gram negative pneumonia, MSSA osteomyelitis right great toe. 08/15/2020 Oxygen weaning well. Speech Therapy pending. Yeast in sputum, contaminant. Lasix IV changed to Lasix PO. Gram negative pneumonia ruled out. Infectious Disease recommending Unasyn thru 09/04/2020 for MSSA osteomyelitis right great toe. 08/15/2020 Admit to TCU with debility, here for rehabilitation, strengthening, intravenous antibiotics, prior to discharge home alone. Past Medical History Past Medical History (Chronic Problems): Chronic Problems (Last Updated 07/30/20 @ 13:[address] 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 evidence of necrosis (Chronic) Pleural effusion on left (Chronic) loculated per CT Chest 07/2019 thoracentesis 07/2019 Mass of right lung (Chronic) bronchoscopy 07/2019 Old inferior wall myocardial infarction (Chronic) Atherosclerotic heart disease of [place] coronary artery without angina pectoris (Chronic) History of non-ST elevation myocardial infarction (NSTEMI) (Chronic 07/21/17) Ischemic cardiomyopathy (Chronic) H/O coronary artery bypass surgery (Chronic 08/04/17) History of CVA (cerebrovascular accident) (Chronic 07/2017) Right bundle branch block (RBBB) (Chronic) Carotid artery stenosis (Chronic) R CEA 2018 Essential (primary) hypertension (Chronic) Claudication of both lower extremities (Chronic) Peripheral vascular occlusive disease (Chronic) RLE Medical History: Medical History (Last Updated 07/30/20 @ 13:[address] Fly Taylor MD) Pleural effusion on left (Chronic) J90 loculated per CT Chest 07/2019 thoracentesis 07/2019 Mass of right lung (Chronic) R91.8 bronchoscopy 07/2019 Old inferior wall myocardial infarction (Chronic) I25.2 Atherosclerotic heart disease of [place] coronary artery without angina pectoris (Chronic) I25.10 History of non-ST elevation myocardial infarction (NSTEMI) (Chronic) Onset Date: 07/21/17 I25.2 Ischemic cardiomyopathy (Chronic) I25.5 History of CVA (cerebrovascular accident) (Chronic) Onset Date: 07/2017 Z86.73 Right bundle branch block (RBBB) (Chronic) I45.10 Carotid artery stenosis (Chronic) I65.29 R CEA 2018 Essential (primary) hypertension (Chronic) I10 Claudication of both lower extremities (Chronic) I73.9 Peripheral vascular occlusive disease (Chronic) I73.9 RLE DM2 (diabetes mellitus, type 2) E11.9 Hepatic steatosis K76.0 Hydrocele, right N43.3 Pleural effusion (Inactive) J90 Allergies Nglgzgy-Xgh-Eti Reductase Inhibitor Adverse Reaction (Severe, Verified 08/12/20 10:51) mylagias lisinopril Adverse Reaction (Verified 08/12/20 10:51) cough Home Medications: Ambulatory Orders Medication Instructions Recorded ascorbic acid (vitamin C) 1,000 mg 1 g PO DAILY tab 11/15/19 tablet aspirin 81 mg tablet,delayed 81 mg PO DAILY 11/15/19 release chromium picolinate 1,000 mcg 1,000 mcg PO DAILY 11/15/19 tablet pantoprazole 40 mg tablet,delayed 40 mg PO DAILY tab 11/15/19 release montelukast 10 mg tablet 10 mg PO DAILY 05/16/20 Losartan Potassium [Cozaar] 25 mg PO DAILY 07/31/20 0.9 % Sodium Chloride [Sodium 10 - 40 ml IV PRN PRN 08/12/20 Chloride] Bisacodyl 10 mg RC DAILY PRN PRN 08/12/20 Heparin Sodium,Porcine/Pf [Heparin 50 unit IV PRN PRN 08/12/20 Flush 10 Units/ml Syr] Insulin Human 75/25 [Humalog Mix 10 unit SQ DINNER 08/12/20 75-25 Kwikpen (BKC)] Insulin Lispro Protamin/Lispro 20 unit SQ BREAKFAST 08/12/20 [Insulin Lispro Mix 75-25 Kwkpn] Metoprolol Succinate 12.5 mg PO DAILY 08/12/20 Acetaminophen [Tylenol Tablet] 650 mg PO Q6H PRN PRN tab 08/15/20 Ampicillin Sodium/Sulbactam Na 3 gm IJ Q8 08/15/20 [Unasyn 3 gm Vial] Furosemide [Lasix] 40 mg PO DAILY 08/15/20 Insulin Lispro [Humalog KwikPen] See Protocol SC ACHS 08/15/20 Potassium Chloride [K-Dur] 10 meq PO DAILY 08/15/20 Surgical History: Surgical History (Last Updated 07/30/20 @ 13:[address] Fly Taylor MD) H/O coronary artery bypass surgery (Chronic) Onset Date: 08/04/17 Z95.1 History of bronchoscopy Onset Date: 08/25/19 Z98.890 LUNG, RIGHT LOWER LOBE, BIOPSY - FEATURES SUGGEST ORGANIZING INFLAMMATION. SEE COMMENT. 08/25/2019 COMMENT; There is no evidence of malignancy. Immunohistochemical stain for S100 is negative for Langerhans cells. Special stains for AFB and GMS were negative for fungal elements and mycobacteria, respectively. History of right-sided carotid endarterectomy Onset Date: 09/24/17 Z98.890 09/24/[address] Reyes @ [facility] History of thoracentesis Onset Date: 07/2019 Z98.890 left Surgical History: coronary bypass surgery - x 3., - - Right CEA. Psychiatric History: No pertinent psych hx Lives: Alone Smoking Status: Former smoker Alcohol: None Drugs: None - *Family History Maternal History Items: - - Patient denies any market maternal family history including heart disease, diabetes, cancer. Paternal History Items: Heart Disease Review of Systems Constitutional: Denies: Chills, Fever, Weight Change HEENT: Denies: Head Aches, Sinus Congestion, Sinus Drainage Cardiovascular: Denies: Chest Pain, Palpitations Respiratory: Denies: Cough, Shortness of breath at rest, Sputum production Gastrointestinal: Denies: Abdominal Pain, Nausea, Vomiting Genitourinary: Denies: Dysuria Musculoskeletal: Denies: Joint Pain, Joint Tenderness Skin: Denies: Rash, Wounds Neurological: Denies: Numbness, Tingling, Focal weakness Psychiatric: Denies: Anxiety, Depression, Homicidal Ideations, Suicidal Ideations Hematologic/ Lymphatic: Denies: Easy Bruising, Easy Bleeding VTE Information - Inpt Only VTE Present on Admission: No VTE Mechan Device Prophylaxis: Knee High SYED Hose VTE Pharm Prophylaxis ordered?: Yes Patient Problems: Active and Suspected Problems (Last Updated 07/30/20 @ 13:[address] Fly Taylor MD) Debility (Acute) Osteomyelitis of great toe of right foot (Acute) Acute respiratory failure with hypoxia (Acute) Acute on chronic systolic congestive heart failure (Acute) Pneumonia (Acute) - Physical Exam Vitals/I&O's: Vital Signs Temp Pulse Resp BP Pulse Ox 97.2 F L 73 16 132/62 H 98 08/15/20 18:54 08/15/20 18:54 08/15/20 18:54 08/15/20 18:54 08/15/20 18:54 Oxygen Flow Rate (L/min) 2 Oxygen Delivery Method Room Air Weight: 85.729 kg Body Mass Index (BMI) 25.6 General: Alert, Oriented x3, Cooperative HEENT: Atraumatic, PERRLA, EOMI, Normocephalic Neck: Supple, No JVD, Negative Carotid Bruits Lungs: Clear to auscultation, Normal air movement Cardiovascular: Regular rate, No murmurs Abdomen: Bowel Sounds Present, Soft, Non Tender Extremities: No edema, Capillary Refill Less than 3 Seconds, - - Right upper extremity PICC line, right great toe dressed. Skin: No rashes, No breakdown Musculoskeletal: No Tenderness to Palpation of Joints or Extremities Neurological: Cranial nerves II-XII grossly intact Psych/Mental Status: Normal Affect, Appropriate Current Medications Acetaminophen (Acetaminophen 325 Mg Tablet) 650 mg PO Q6H PRN PRN PRN Reason: Pain Score 1-10/Temp > 100.7 F Ascorbic Acid (Ascorbic Acid 500 Mg Tablet) 1,000 mg PO DAILY [facility] Aspirin (Aspirin E.C. 81 Mg Tablet) 81 mg PO DAILYCM [facility] Bisacodyl (Bisacodyl 10 Mg Suppository) 10 mg RECTAL DAILY PRN PRN PRN Reason: Constipation Furosemide (Furosemide 40 Mg Tablet) 40 mg PO DAILY [facility] Heparin Sodium (Beef Lung) (Heparin Pf Lock 10 Units/Ml 50 Units/5 Ml Syringe) 50 units IV UD PRN PRN Reason: HEPARIN FLUSH Ampicillin Sodium/Sulbactam (Sodium 3 gm/ Sodium Chloride) 112 mls @ 150 mls/hr IV Q8 JOSIE Stop: 09/04/20 22:01 Insulin Human Lispro (Insulin Lispro 100 Unit/Ml Insuln.Pen) 0 unit SC ACHS JOSIE; Protocol Insulin Lispro Protam/Lispro Human (Insulin Human 75/25 Kwickpen) 10 unit SC DINNER [facility] Insulin Lispro Protam/Lispro Human (Insulin Human 75/25 Kwickpen) 20 unit SC BREAKFAST [facility] Losartan Potassium (Losartan Potassium 25 Mg Tablet) 25 mg PO DAILY [facility] Metoprolol Succinate (Metoprolol(Xl)Succ 25 Mg Tablet) 12.5 mg PO DAILY [facility] Montelukast Sodium (Montelukast 10 Mg Tablet) 10 mg PO DAILY [facility] Nutritional Formula (Nutritional Supplement (Christian) Packet) 1 packet PO BIDCM [facility] Pantoprazole Sodium (Pantoprazole Sodium 40 Mg Tablet) 40 mg PO DAILY [facility] Potassium Chloride (Potassium Chloride 10 Meq Tablet) 10 meq PO DAILYCM [facility] Sodium Chloride (0.9% Nacl Picc Flush) 10 - 40 ml IV UD PRN PRN Reason: PICC FLUSH Assessment/Plan All Active Problems (Last Updated 07/30/20 @ 13:[address] Fly Taylor MD) Debility (Acute) Osteomyelitis of great toe of right foot (Acute) Acute hypoxic respiratory failure (Acute) Acute on chronic systolic and diastolic heart failure, NYHA class 3 (Acute) Acute respiratory failure with hypoxia (Acute) Acute on chronic systolic congestive heart failure (Acute) Pneumonia (Acute) 80 year old male with below past medical history hospitalized for acute hypoxic respiratory failure secondary to acute on chronic systolic congestive heart failure, complicated by MSSA osteomyelitis right great toe, Peripheral arterial occlusive disease, admitted to TCU with debility, here for rehabilitation, strengthening, intravenous antibiotics, prior to discharge home alone. * Debility - PT/OT. * Pain - Tylenol 1000MG Q6H PRN pain (1-10). * Bowel - Senna/colace 1 tablet BID, Dulcolax 10MG NM daily PRN. * Adult immunization - Administer Prevnar 13, Pneumovax 23, Fluzone, COVID19 vaccine as appropriate. * DVT prophylaxis - Lovenox 40MG SC daily. * MSSA osteomyelitis right great toe - Unasyn 3GM IV Q8H thru 09/04/2020. * Vitamin C deficiency - Vitamin C 1000MG daily. * Coronary Artery Disease - Metoprolol succinate 12.5MG daily, Losartan 25MG daily, Aspirin 81MG daily. * Chronic systolic congestive heart failure - Metoprolol succinate 12.5MG daily, Losartan 25MG daily, Lasix 40MG daily. * Diabetes Mellitus II - Humalog 75/25 20 units AM, 10 units PM. * Allergic rhinitis - Singulair 10MG daily. * Nutrition - Christian 1 packet BID. * GERD - Pantoprazole 40MG daily. * Hypokalemia - K-Dur 10MEQ daily.
[2020-08-15 22:06] LABS: Bedside Glucose 181 mg/dL (70-110)
[2020-08-15] MEDS: 0.9% NaCl PICC Flush IV (22:06)
[2020-08-16] MEDS: Bisacodyl 10 MG Suppository RECTAL (01:58)
[2020-08-16 02:25] VITALS: BP 140/66; PULSE 78; RESP 16; TEMP 36.3; O2SAT 97
[2020-08-16 05:11] VITALS: PULSE 66
[2020-08-16] MEDS: Furosemide 40 MG Tablet PO (05:11)
[2020-08-16] MEDS: Ascorbic Acid 500 MG Tablet 1000 MG PO (05:11)
[2020-08-16] MEDS: Metoprolol(XL)Succ 25 MG Tablet 12.5 MG PO (05:11)
[2020-08-16] MEDS: Senna/Docusate Sodium 1 Tablet PO ×2 (05:11→18:09)
[2020-08-16] MEDS: Losartan Potassium 25 MG Tablet PO (05:12)
[2020-08-16] MEDS: Menthol/Lanolin/Calamine/Znox 113 GM Tube 1 APPLIC TOPICAL ×2 (05:12→21:29)
[2020-08-16] MEDS: Montelukast 10 MG Tablet PO (05:12)
[2020-08-16] MEDS: Nystatin Powder 15gm Bottle 1 APPLIC TOPICAL ×2 (05:12→21:27)
[2020-08-16] MEDS: Enoxaparin 40 MG/0.4 ML Syringe SC (05:12)
[2020-08-16] MEDS: Pantoprazole Sodium 40 MG Tablet PO (05:12)
[2020-08-16 05:38] LABS: Absolute Lymphocyte Count 0.71 X10^3/uL (0.83-4.51); Absolute Neutrophil Count 9.9 X10^3/uL (2.0-7.7); Basophil# 0.05 X10^3/uL; Basophil% 0.4 % (0-1); Eosinophil# 0.72 X10^3/uL; Eosinophils% 5.8 % (0-5); Hematocrit 33.2 % (40-54); Hemoglobin 10.2 g/dL (13.0-16.5); Lymphocyte # 0.71 X10^3/ul (4.0); Lymphocyte % 5.7 % (19-41); Mean Corp Hgb Conc 30.7 g/dL (32-36); Mean Corpuscular Hgb 29.1 pg (27.0-32.0); Mean Corpuscular Volume 94.6 fL (80-94); Mean Platelet Vol. 10.7 fl (6.2-12.0); Monocyte# 1.01 X10^3/uL; Monocyte% 8.1 % (0-10); NRBC Flagged by Analyzer 0 % (0-5); Neutrophil # 9.88 X10^3/uL (2.7-7.7); Neutrophil % 79.2 % (47-70); Platelet Count 277 K/mm3 (150-450); RBC Distribution Width CV 14.3 % (11.6-14.6); RBC Distribution Width SD 49.1 fl (35.1-43.9); Red Blood Count 3.51 M/mm3 (4.6-6.2); White Blood Count 12.5 K/mm3 (4.4-11.0)
[2020-08-16 05:54] LABS: Anion Gap 3 (5-15); BUN 43 mg/dL (7-18); BUN/Creat Ratio 42.6 RATIO (10-20); Calcium,Total 8.6 mg/dL (8.5-10.1); Chloride 95 mmol/L (98-107); Creatinine, Serum 1.01 mg/dL (0.70-1.30); EST Glomerular Filtration Rate 76 mL/min (>60); Est Glom Filt Rate - Afr Amer 92 mL/min (>60); Estimated Creatinine Clearance 65.09 ml/min; Glucose 168 mg/dL (74-106); Potassium 3.5 mmol/L (3.5-5.1); Sodium Level 138 mmol/L (136-145)
[2020-08-16 06:26] LABS: Bedside Glucose 195 mg/dL (70-110)
[2020-08-16] MEDS: Insulin Human 75/25 Kwickpen 20 UNIT SC (09:01)
[2020-08-16] MEDS: Aspirin E.C. 81 MG Tablet PO (09:04)
--- NOTE | 2020-08-16 09:28 | PCM.PN.ID ---
Patient Problems: Active and Suspected Problems (Last Updated 07/30/20 @ 13:[address] Fly Taylor MD) Debility (Acute) Osteomyelitis of great toe of right foot (Acute) Acute respiratory failure with hypoxia (Acute) Acute on chronic systolic congestive heart failure (Acute) Pneumonia (Acute) - Physical Exam Vitals/I&O's: Vital Signs Temp Pulse Resp BP Pulse Ox 97.4 F L 66 16 140/66 H 97 08/16/20 02:25 08/16/20 05:11 08/16/20 02:25 08/16/20 02:25 08/16/20 02:25 Oxygen Flow Rate (L/min) 2 Oxygen Delivery Method Nasal Cannula Weight: 85.729 kg Body Mass Index (BMI) 25.6 Intake and Output for Last 24 Hours 08/14/20 08/15/20 08/16/20 23:59 23:59 23:59 Intake Total 112 / 112 112 / 112 Output Total 575 / 575 Balance 112 / 112 -463 / -463 Laboratory Results 08/15/20 22:01: POC Glucose 181 H 08/16/20 05:20: WBC 12.5 H, RBC 3.51 L, Hgb 10.2 L, Hct 33.2 L, MCV 94.6 H, MCH 29.1, MCHC 30.7 L, RDW Std Deviation 49.1 H, RDW Coeff of Sacha 14.3, Plt Count 277, MPV 10.7, Immature Gran % (Auto) 0.800, Neut % (Auto) 79.2 H, Lymph % (Auto) 5.7 L, Bertie % (Auto) 8.1, Eos % (Auto) 5.8 H, Baso % (Auto) 0.4, Absolute Neuts (auto) 9.9 H, Absolute Lymphs (auto) 0.71 L, Nucleated RBC % 0 08/16/20 05:20: Sodium 138, Potassium 3.5, Chloride 95 L, Carbon Dioxide 40.0 H, Anion Gap 3 L, BUN 43 H, Creatinine 1.01, Estim Creat Clear Calc 65.09, Est GFR (MDRD) Af Amer 92, Est GFR (MDRD) Non-Af 76, BUN/Creatinine Ratio 42.6 H, Glucose 168 H, Calcium 8.6 08/16/20 06:07: POC Glucose 195 H Current Medications Acetaminophen (Acetaminophen 500 Mg Tablet) 1,000 mg PO Q6H PRN PRN PRN Reason: Pain Score 1-10 Ascorbic Acid (Ascorbic Acid 500 Mg Tablet) 1,000 mg PO DAILY [facility] Last Admin: 08/16/20 05:11 Dose: 1,000 mg Documented by: Aspirin (Aspirin E.C. 81 Mg Tablet) 81 mg PO DAILYCM [facility] Last Admin: 08/16/20 09:04 Dose: 81 mg Documented by: Bisacodyl (Bisacodyl 10 Mg Suppository) 10 mg RECTAL DAILY PRN PRN PRN Reason: Constipation Last Admin: 08/16/20 01:58 Dose: 10 mg Documented by: Calamine/Phenol (Menthol/Lanolin/Calamine/Znox 113 Gm Tube) 1 applic TOPICAL 0600,2200 [facility]; Protocol Last Admin: 08/16/20 05:12 Dose: 1 applicatio Documented by: Enoxaparin Sodium (Enoxaparin 40 Mg/0.4 Ml Syringe) 40 mg SC DAILY@0600 [facility] Last Admin: 08/16/20 05:12 Dose: 40 mg Documented by: Furosemide (Furosemide 40 Mg Tablet) 40 mg PO DAILY [facility] Last Admin: 08/16/20 05:11 Dose: 40 mg Documented by: Heparin Sodium (Beef Lung) (Heparin Pf Lock 10 Units/Ml 50 Units/5 Ml Syringe) 50 units IV UD PRN PRN Reason: HEPARIN FLUSH Heparin Sodium (Beef Lung) (Heparin Pf Lock 10 Units/Ml 50 Units/5 Ml Syringe) 50 units IV UD PRN PRN Reason: PICC Line Heparin Flush Ampicillin Sodium/Sulbactam (Sodium 3 gm/ Sodium Chloride) 112 mls @ 150 mls/hr IV Q8 [facility] Stop: 09/04/20 22:01 Last Infusion: 08/16/20 05:54 Dose: Infused Documented by: Sodium Chloride () 250 mls @ 15 mls/hr IV .[id number] PRN PRN Reason: Saline Flush Insulin Lispro Protam/Lispro Human (Insulin Human 75/25 Kwickpen) 10 unit SC DINNER [facility] Insulin Lispro Protam/Lispro Human (Insulin Human 75/25 Kwickpen) 20 unit SC BREAKFAST [facility] Last Admin: 08/16/20 09:01 Dose: 20 u Documented by: Losartan Potassium (Losartan Potassium 25 Mg Tablet) 25 mg PO DAILY [facility] Last Admin: 08/16/20 05:12 Dose: 25 mg Documented by: Metoprolol Succinate (Metoprolol(Xl)Succ 25 Mg Tablet) 12.5 mg PO DAILY [facility] Last Admin: 08/16/20 05:11 Dose: 12.5 mg Documented by: Montelukast Sodium (Montelukast 10 Mg Tablet) 10 mg PO DAILY [facility] Last Admin: 08/16/20 05:12 Dose: 10 mg Documented by: Multi-Ingredient Cream (Mineral Oil/Petrolatum,White Jar) 1 applic TOPICAL 0600,1800 [facility]; Protocol Last Admin: 08/16/20 05:12 Dose: 1 applicatio Documented by: Nutritional Formula (Nutritional Supplement (Christian) Packet) [facility] Last Admin: 08/16/20 09:04 Dose: 1 packet Documented by: Nystatin (Nystatin Powder 15gm Bottle) 1 applic TOPICAL 0600,2200 [facility]; Protocol Last Admin: 08/16/20 05:12 Dose: 1 applicatio Documented by: Pantoprazole Sodium (Pantoprazole Sodium 40 Mg Tablet) 40 mg PO DAILY [facility] Last Admin: 08/16/20 05:12 Dose: 40 mg Documented by: Potassium Chloride (Potassium Chloride 10 Meq Tablet) 10 meq [facility] Last Admin: 08/16/20 09:04 Dose: 10 meq Documented by: Senna/Docusate Sodium (Senna/Docusate Sodium 1 Tablet) 1 tablet PO BID [facility] Last Admin: 08/16/20 05:11 Dose: 1 tablet Documented by: Sodium Chloride (0.9% Nacl Picc Flush) 10 - 40 ml IV UD PRN PRN Reason: PICC FLUSH Last Admin: 08/15/20 22:06 Dose: 30 ml Documented by: Sodium Chloride (0.9% Saline Lock 10 Ml Syringe) 10 - 40 ml IV UD PRN PRN Reason: Open End PICC Flush Sodium Chloride (0.9 % Nacl (Sterile) Posiflush 10 Ml) 10 - 40 ml IV UD PRN PRN Reason: Port access or dressing change Tuberculin PPD (Tuberculin,Purif.Prot.Deriv. 50 Tu/Ml Vial) 5 tu ID [id number] ONE Stop: 08/16/20 10:01 Medical Necessity - Tobacco Use Smoking Status: Former smoker Route of nutrition/ use of supplements: [] Nutritional Intake: [] IV Site: [] Rosenberg Catheter: [] - Assessment/Plan Antibiotics: [] Assessment/Plan: [] Active and Suspected Problems (Last Updated 07/30/20 @ 13:[address] Fly Taylor MD) Debility (Acute) Osteomyelitis of great toe of right foot (Acute) Acute respiratory failure with hypoxia (Acute) Acute on chronic systolic congestive heart failure (Acute) Pneumonia (Acute) Moved to TCU. 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 Raven garvey so far. Poor bloodflow, angio done and no intervention able to be performed. Cx with MSSA and anaerobes. Cont unasyn until 09/04/20. Will continue to follow
[2020-08-16 10:00] VITALS: PULSE 79; RESP 16
--- NOTE | 2020-08-16 10:32 | PN_ITS ---
Patient Problems: Active and Suspected Problems (Last Updated 07/30/20 @ 13:[address] Fly Taylor MD) Debility (Acute) Osteomyelitis of great toe of right foot (Acute) Acute respiratory failure with hypoxia (Acute) Acute on chronic systolic congestive heart failure (Acute) Pneumonia (Acute) Subjective: Patient seen and examined bedside. Patient denies any new pedal complaints. Patient denies any nausea, fever, chills, chest pain, shortness of breath, cough, streaking, purulence, vomiting. Patient states that he has no pain in his toe - Physical Exam Vitals/I&O's: Vital Signs Temp Pulse Resp BP Pulse Ox 97.4 F L 66 16 140/66 H 97 08/16/20 02:25 08/16/20 05:11 08/16/20 02:25 08/16/20 02:25 08/16/20 02:25 Oxygen Flow Rate (L/min) 2 Oxygen Delivery Method Nasal Cannula Weight: 85.729 kg Body Mass Index (BMI) 25.6 Intake and Output for Last 24 Hours 08/14/20 08/15/20 08/16/20 23:59 23:59 23:59 Intake Total 112 / 112 352 / 352 Output Total 575 / 575 Balance 112 / 112 -223 / -223 General: Alert, Oriented x3 HEENT: Atraumatic Extremities: No clubbing, No cyanosis, No Calf Tenderness, Cool - Especially at toes, Diminished Peripheral Pulses, Edema - Pitting bilateral ankles Skin: Ulcer/ Wound - Right foot dorsal and tuft of hallux necrotic tissue area stable without signs of infection, no surrounding erythema or edema, probe to bone, no drainage, - - Dorsal right foot scab stable no signs of infections, hairless, atrophic skin, thin skin Musculoskeletal: Muscle Wasting, - - No pain with compression or manipulation of the right hallux Neurological: - - Decreased epicritic sensation Psych/Mental Status: Normal Affect, Appropriate Laboratory Results 08/15/20 22:01: POC Glucose 181 H 08/16/20 05:20: WBC 12.5 H, RBC 3.51 L, Hgb 10.2 L, Hct 33.2 L, MCV 94.6 H, MCH 29.1, MCHC 30.7 L, RDW Std Deviation 49.1 H, RDW Coeff of Sacha 14.3, Plt Count 277, MPV 10.7, Immature Gran % (Auto) 0.800, Neut % (Auto) 79.2 H, Lymph % (Auto) 5.7 L, [place] % (Auto) 8.1, Eos % (Auto) 5.8 H, Baso % (Auto) 0.4, Absolute Neuts (auto) 9.9 H, Absolute Lymphs (auto) 0.71 L, Nucleated RBC % 0 08/16/20 05:20: Sodium 138, Potassium 3.5, Chloride 95 L, Carbon Dioxide 40.0 H, Anion Gap 3 L, BUN 43 H, Creatinine 1.01, Estim Creat Clear Calc 65.09, Est GFR (MDRD) Af Amer 92, Est GFR (MDRD) Non-Af 76, BUN/Creatinine Ratio 42.6 H, Glucose 168 H, Calcium 8.6 08/16/20 06:07: POC Glucose 195 H Current Medications Acetaminophen (Acetaminophen 500 Mg Tablet) 1,000 mg PO Q6H PRN PRN PRN Reason: Pain Score 1-10 Ascorbic Acid (Ascorbic Acid 500 Mg Tablet) 1,000 mg PO DAILY [facility] Last Admin: 08/16/20 05:11 Dose: 1,000 mg Documented by: Aspirin (Aspirin E.C. 81 Mg Tablet) [facility] Last Admin: 08/16/20 09:04 Dose: 81 mg Documented by: Bisacodyl (Bisacodyl 10 Mg Suppository) 10 mg RECTAL DAILY PRN PRN PRN Reason: Constipation Last Admin: 08/16/20 01:58 Dose: 10 mg Documented by: Calamine/Phenol (Menthol/Lanolin/Calamine/Znox 113 Gm Tube) 1 applic TOPICAL 0600,2200 [facility]; Protocol Last Admin: 08/16/20 05:12 Dose: 1 applicatio Documented by: Enoxaparin Sodium (Enoxaparin 40 Mg/0.4 Ml Syringe) 40 mg SC DAILY@0600 [facility] Last Admin: 08/16/20 05:12 Dose: 40 mg Documented by: Furosemide (Furosemide 40 Mg Tablet) 40 mg PO DAILY [facility] Last Admin: 08/16/20 05:11 Dose: 40 mg Documented by: Heparin Sodium (Beef Lung) (Heparin Pf Lock 10 Units/Ml 50 Units/5 Ml Syringe) 50 units IV UD PRN PRN Reason: HEPARIN FLUSH Heparin Sodium (Beef Lung) (Heparin Pf Lock 10 Units/Ml 50 Units/5 Ml Syringe) 50 units IV UD PRN PRN Reason: PICC Line Heparin Flush Ampicillin Sodium/Sulbactam (Sodium 3 gm/ Sodium Chloride) 112 mls @ 150 mls/hr IV Q8 [facility] Stop: 09/04/20 22:01 Last Infusion: 08/16/20 05:54 Dose: Infused Documented by: Sodium Chloride () 250 mls @ 15 mls/hr IV .[id number] PRN PRN Reason: Saline Flush Insulin Lispro Protam/Lispro Human (Insulin Human 75/25 [place]) 10 unit SC DINNER [facility] Insulin Lispro Protam/Lispro Human (Insulin Human 75/25 [place]) 20 unit SC BREAKFAST [facility] Last Admin: 08/16/20 09:01 Dose: 20 u Documented by: Losartan Potassium (Losartan Potassium 25 Mg Tablet) 25 mg PO DAILY [facility] Last Admin: 08/16/20 05:12 Dose: 25 mg Documented by: Metoprolol Succinate (Metoprolol(Xl)Succ 25 Mg Tablet) 12.5 mg PO DAILY [facility] Last Admin: 08/16/20 05:11 Dose: 12.5 mg Documented by: Montelukast Sodium (Montelukast 10 Mg Tablet) 10 mg PO DAILY [facility] Last Admin: 08/16/20 05:12 Dose: 10 mg Documented by: Multi-Ingredient Cream (Mineral Oil/Petrolatum,White Jar) 1 applic TOPICAL 0600,1800 [facility]; Protocol Last Admin: 08/16/20 05:12 Dose: 1 applicatio Documented by: Nutritional Formula ([facility]utritional Supp[facility] (Christian) Packet) [facility] Last Admin: 08/16/20 09:04 Dose: 1 packet Documented by: Nystatin (Nystatin Powder 15gm Bottle) 1 applic TOPICAL 0600,2200 [facility]; Protocol Last Admin: 08/16/20 05:12 Dose: 1 applicatio Documented by: Pantoprazole Sodium (Pantoprazole Sodium 40 Mg Tablet) 40 mg PO DAILY [facility] Last Admin: 08/16/20 05:12 Dose: 40 mg Documented by: Potassium Chloride (Potassium Chloride 10 Meq Tablet) [facility]q [facility] Last Admin: 08/16/20 09:04 Dose: 10 meq Documented by: Senna/Docusate Sodium (Senna/Docusate Sodium 1 Tablet) 1 tablet PO BID [facility] Last Admin: 08/16/20 05:11 Dose: 1 tablet Documented by: Sodium Chloride (0.9% Nacl Picc Flush) 10 - 40 ml IV UD PRN PRN Reason: PICC FLUSH Last Admin: 08/15/20 22:06 Dose: 30 ml Documented by: Sodium Chloride (0.9% Saline Lock 10 Ml Syringe) 10 - 40 ml IV UD PRN PRN Reason: Open End PICC Flush Sodium Chloride (0.9 % Nacl (Sterile) Posiflush 10 Ml) 10 - 40 ml IV UD PRN PRN Reason: Port access or dressing change Medical Necessity - Tobacco Use Smoking Status: Former smoker Assessment/Plan All Active Problems (Last Updated 07/30/20 @ 13:[address] 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 Reviewed diagnostic data. We have discussed/consulted with Dr. Suarez who performed lower extremity angiogram - Patient has poor arterial flow to toe and foot, and has very questionable healing potential for any toe or partial foot amputation. Right 1st toe is dry and stable at this time. We discussed the options and with patient permission discussed with patient's son Emanuel previously. At this time we have decided we will continue to perform monitoring of the toe, let it demarcate, perform local wound care, as well as offloading; and patient also on antibiotics at this time - followed by Dr. Garcia/ID. Patient understands eventually he may require an amputation. Continue daily dressing changes with betadine covered by DSD. Continue with antibiotic therapy per Infectious Disease/ID service. Discussed with Dr. Garcia. No weightbearing to right forefoot, ok to put weight on right heel for transitions only. Patient has surgical shoe to assist in this endeavor Podiatry will continue to follow. Please contact if any concerns.
[2020-08-16] MEDS: Tuberculin,Purif.prot.deriv. 50 TU/ML Vial 5 ML ID (10:53)
[2020-08-16 11:21] LABS: Bedside Glucose 220 mg/dL (70-110)
--- NOTE | 2020-08-16 13:21 | CASEMGMT ---
Addendum entered by Olga Templeton 08/16/20 13:25: Family provided completed Medicaid application. Submitted to S 08/14. Family provided choices for SNFs if needed at [place]. Will refer closer to [place]. PT remains on IV ATB until 09/04. Original Note: Social Work Discussed code status with pt. Pt wishes to be DNR-CCA, with intubation. Nursing notified. Olga Templeton, PHP CONSULTANT FORMULA TECHNICIAN
--- NOTE | 2020-08-16 13:29 | NURSING ---
Resident and family updated on current COVID status on the unit.
[2020-08-16 14:06] VITALS: BP 138/63; PULSE 80; RESP 18; TEMP 36.3; O2SAT 96
[2020-08-16] MEDS: 0.9% NaCl PICC Flush IV ×3 (14:27→21:33)
--- NOTE | 2020-08-16 15:05 | PHA.CONS_ITS ---
<Kyle Mcleani - Last Filed: 08/16/20 15:05> Progress Note - Pharmacy Subjective: TCU Admission Objective: Allergies Zcovauc-Imv-Fyk Reductase Inhibitor Adverse Reaction (Severe, Verified 08/12/20 10:51) mylagias lisinopril Adverse Reaction (Verified 08/12/20 10:51) cough Current Medications Generic Name Dose Route Start Last Admin Trade Name Freq PRN Reason Stop Dose Admin Acetaminophen 1,000 mg 08/15/20 21:23 Acetaminophen 500 Mg Tablet PO Q6H PRN PRN Pain Score 1-10 Ascorbic Acid 1,000 mg 08/16/20 06:00 08/16/20 05:11 Ascorbic Acid 500 Mg Tablet PO 1,000 mg DAILY [facility] Administration Aspirin 81 mg 08/16/20 08:00 08/16/20 09:04 Aspirin E.C. 81 Mg Tablet PO 81 mg DAILYCM [facility] Administration Bisacodyl 10 mg 08/15/20 19:30 08/16/20 01:58 Bisacodyl 10 Mg Suppository RECTAL 10 mg DAILY PRN PRN Administration Constipation Calamine/Phenol 1 applic 08/16/20 06:00 08/16/20 05:12 Menthol/Lanolin/Calamine/Znox 113 Gm Tube TOPICAL 1 applicatio 0600,2200 [facility] Administration Protocol Enoxaparin Sodium 40 mg 08/16/20 06:00 08/16/20 05:12 Enoxaparin 40 Mg/0.4 Ml Syringe SC 40 mg DAILY@0600 [facility] Administration Furosemide 40 mg 08/16/20 06:00 08/16/20 05:11 Furosemide 40 Mg Tablet PO 40 mg DAILY [facility] Administration Heparin Sodium (Beef Lung) 50 units 08/15/20 19:45 Heparin Pf Lock 10 Units/Ml 50 Units/5 Ml Syringe IV UD PRN HEPARIN FLUSH Heparin Sodium (Beef Lung) 50 units 08/15/20 21:17 Heparin Pf Lock 10 Units/Ml 50 Units/5 Ml Syringe IV UD PRN PICC Line Heparin Flush Ampicillin Sodium/Sulbactam 112 mls @ 150 mls/hr 08/15/20 22:00 08/16/20 14:23 Sodium 3 gm/ Sodium Chloride IV 09/04/20 22:01 150 mls/hr Q8 [facility] Administration Sodium Chloride 250 mls @ 15 mls/hr 08/15/20 22:11 IV .[id number] PRN Saline Flush Insulin Lispro Protam/Lispro Human 10 unit 08/16/20 17:00 Insulin Human 75/25 [place] SC DINNER [facility] Insulin Lispro Protam/Lispro Human 20 unit 08/16/20 08:00 08/16/20 09:01 Insulin Human 75/25 [place] SC 20 u BREAKFAST [facility] Administration Losartan Potassium 25 mg 08/16/20 06:00 08/16/20 05:12 Losartan Potassium 25 Mg Tablet PO 25 mg DAILY [facility] Administration Metoprolol Succinate 12.5 mg 08/16/20 06:00 08/16/20 05:11 Metoprolol(Xl)Succ 25 Mg Tablet PO 12.5 mg DAILY [facility] Administration Montelukast Sodium 10 mg 08/16/20 06:00 08/16/20 05:12 Montelukast 10 Mg Tablet PO 10 mg DAILY [facility] Administration Multi-Ingredient Cream 1 applic 08/16/20 06:00 08/16/20 05:12 Mineral Oil/Petrolatum,White Jar TOPICAL 1 applicatio 0600,1800 [facility] Administration Protocol Nutritional Formula 1 packet 08/16/20 08:00 08/16/20 09:04 Nutritional Supplement (Christian) Packet PO 1 packet BIDCM [facility] Administration Nystatin 1 applic 08/16/20 06:00 08/16/20 05:12 Nystatin Powder 15gm Bottle TOPICAL 1 applicatio 0600,2200 [facility] Administration Protocol Pantoprazole Sodium 40 mg 08/16/20 06:00 08/16/20 05:12 Pantoprazole Sodium 40 Mg Tablet PO 40 mg DAILY [facility] Administration Potassium Chloride 10 meq 08/16/20 08:00 08/16/20 09:04 Potassium Chloride 10 Meq Tablet PO 10 meq DAILYCM [facility] Administration Senna/Docusate Sodium 1 tablet 08/16/20 06:00 08/16/20 05:11 Senna/Docusate Sodium 1 Tablet PO 1 tablet BID [facility] Administration Sodium Chloride 10 - 40 ml 08/15/20 19:45 08/16/20 14:27 0.9% Nacl Picc Flush IV 20 ml UD PRN Administration PICC FLUSH Sodium Chloride 10 - 40 ml 08/15/20 21:17 0.9% Saline Lock 10 Ml Syringe IV UD PRN Open End PICC Flush Sodium Chloride 10 - 40 ml 08/15/20 21:17 0.9 % Nacl (Sterile) Posiflush 10 Ml IV UD PRN Port access or dressing change Problem List (Last Updated 07/30/20 @ 13:[address] Fly Taylor MD) Debility (Acute) Multiple falls (Chronic) Osteomyelitis of great toe of right foot (Acute) Peripheral arterial occlusive disease (Chronic) Hypertension (Chronic) Stroke (Chronic) Hyperlipidemia (Chronic) Diabetes mellitus (Chronic) Acute respiratory failure with hypoxia (Acute) Acute on chronic systolic congestive heart failure (Acute) Pneumonia (Acute) CAD (coronary artery disease) (Chronic) Carotid artery stenosis (Chronic) Vital Signs Temp Pulse Resp BP Pulse Ox 97.4 F L 80 18 138/63 H 96 08/16/20 14:06 08/16/20 14:06 08/16/20 14:06 08/16/20 14:06 08/16/20 14:06 Oxygen Flow Rate (L/min) 2 Oxygen Delivery Method Nasal Cannula Weight: 85.729 kg Body Mass Index (BMI) 25.6 Sodium 138 mmol/L (136-145) 08/16/20 05:20 Potassium 3.5 mmol/L (3.5-5.1) 08/16/20 05:20 Chloride 95 mmol/L (98-107) L 08/16/20 05:20 Carbon Dioxide 40.0 mmol/L (21.0-32.0) H 08/16/20 05:20 Anion Gap 3 (5-15) L 08/16/20 05:20 BUN 43 mg/dL (7-18) H 08/16/20 05:20 Creatinine 1.01 mg/dL (0.70-1.30) 08/16/20 05:20 Est GFR (MDRD) Af Amer 92 mL/min (>60) 08/16/20 05:20 Est GFR (MDRD) Non-Af 76 mL/min (>60) 08/16/20 05:20 BUN/Creatinine Ratio 42.6 RATIO (10-20) H 08/16/20 05:20 Glucose 168 mg/dL (74-106) H 08/16/20 05:20 Assessment/Plan: 1. Pain: acetaminophen 1000mg PO Q6H PRN pain 1-05/05. Please continue to monitor for pain and PRN usage. 2. MSSA osteomyelitis right great toe: ampicillin/sulbactam 3gm IV Q8H thru 09/04/20. Please continue to monitor for S/S of infection, cultures, diarrhea, and renal function. 3. CAD/CHF: metoprolol succinate 12.5mg PO daily, losartan 25mg PO daily, aspirin 81mg PO dailyCM, furosemide 40mg PO daily. Please continue to monitor BP (last 144/66), HR (last 79), potassium levels (last 3.5 mmol/L), S/S of bleeding, and edema. 4. Diabetes mellitus II: Humalog mix 75/25 20 units SC with breakfast and 10 units with dinner. Please continue to monitor blood glucose (last 220 mg/dL), S/S of hypoglycemia, and hemoglobin A1c (last 5.9% 07/24/20). 5. Allergic rhinitis: montelukast 10mg PO daily. Please continue to monitor. 6. GERD: pantoprazole 40mg PO daily. Please continue to monitor for S/S of GERD and diarrhea. 7. Vitamin C deficiency/hypokalemia: ascorbic acid 1000mg PO daily and potassium chloride 10mEq PO dailyCM. Please continue to monitor potassium levels (last 3.5 mmol/L). Psychotropic Medications: None Unnecessary Medications: None Bowel Regimen: senna/docusate 1T PO BID and bisacodyl 10mg NH daily PRN constipation. Please continue to monitor for constipation and PRN usage. Date of Note:: 08/16/20 - Provider Comments Provider responsibility: Provider responsible to enter orders to implement recommendations <Vishal Alejo Chi - Last Filed: 08/16/20 15:54> Progress Note - Pharmacy Subjective: [] Objective: Allergies Otbooph-Jkj-Oup Reductase Inhibitor Adverse Reaction (Severe, Verified 08/12/20 10:51) mylagias lisinopril Adverse Reaction (Verified 08/12/20 10:51) cough Current Medications Generic Name Dose Route Start Last Admin Trade Name Freq PRN Reason Stop Dose Admin Acetaminophen 1,000 mg 08/15/20 21:23 Acetaminophen 500 Mg Tablet PO Q6H PRN PRN Pain Score 1-10 Ascorbic Acid 1,000 mg 08/16/20 06:00 08/16/20 05:11 Ascorbic Acid 500 Mg Tablet PO 1,000 mg DAILY [facility] Administration Aspirin 81 mg 08/16/20 08:00 08/16/20 09:04 Aspirin E.C. 81 Mg Tablet PO 81 mg DAILYCM [facility] Administration Bisacodyl 10 mg 08/15/20 19:30 08/16/20 01:58 Bisacodyl 10 Mg Suppository RECTAL 10 mg DAILY PRN PRN Administration Constipation Calamine/Phenol 1 applic 08/16/20 06:00 08/16/20 05:12 Menthol/Lanolin/Calamine/Znox 113 Gm Tube TOPICAL 1 applicatio 0600,2200 [facility] Administration Protocol Enoxaparin Sodium 40 mg 08/16/20 06:00 08/16/20 05:12 Enoxaparin 40 Mg/0.4 Ml Syringe SC 40 mg DAILY@0600 [facility] Administration Furosemide 40 mg 08/16/20 06:00 08/16/20 05:11 Furosemide 40 Mg Tablet PO 40 mg DAILY [facility] Administration Heparin Sodium (Beef Lung) 50 units 08/15/20 19:45 Heparin Pf Lock 10 Units/Ml 50 Units/5 Ml Syringe IV UD PRN HEPARIN FLUSH Heparin Sodium (Beef Lung) 50 units 08/15/20 21:17 Heparin Pf Lock 10 Units/Ml 50 Units/5 Ml Syringe IV UD PRN PICC Line Heparin Flush Ampicillin Sodium/Sulbactam 112 mls @ 150 mls/hr 08/15/20 22:00 08/16/20 15:36 Sodium 3 gm/ Sodium Chloride IV 09/04/20 22:01 Infused Q8 [facility] Infusion Sodium Chloride 250 mls @ 15 mls/hr 08/15/20 22:11 IV .[id number] PRN Saline Flush Insulin Lispro Protam/Lispro Human 10 unit 08/16/20 17:00 Insulin Human 75/25 [place] SC DINNER [facility] Insulin Lispro Protam/Lispro Human 20 unit 08/16/20 08:00 08/16/20 09:01 Insulin Human 75/25 [place] SC 20 u BREAKFAST [facility] Administration Losartan Potassium 25 mg 08/16/20 06:00 08/16/20 05:12 Losartan Potassium 25 Mg Tablet PO 25 mg DAILY [facility] Administration Metoprolol Succinate 12.5 mg 08/16/20 06:00 08/16/20 05:11 Metoprolol(Xl)Succ 25 Mg Tablet PO 12.5 mg DAILY [facility] Administration Montelukast Sodium 10 mg 08/16/20 06:00 08/16/20 05:12 Montelukast 10 Mg Tablet PO 10 mg DAILY [facility] Administration Multi-Ingredient Cream 1 applic 08/16/20 06:00 08/16/20 05:12 Mineral Oil/Petrolatum,White Jar TOPICAL 1 applicatio 0600,1800 [facility] Administration Protocol Nutritional Formula 1 packet 08/16/20 08:00 08/16/20 09:04 Nutritional Supplement (Christian) Packet PO 1 packet BIDCM [facility]IE Administration Nystatin 1 applic 08/16/20 06:00 08/16/20 05:12 Nystatin Powder 15gm Bottle TOPICAL 1 applicatio 0600,2200 [facility] Administration Protocol Pantoprazole Sodium 40 mg 08/16/20 06:00 08/16/20 05:12 Pantoprazole Sodium 40 Mg Tablet PO 40 mg DAILY [facility] Administration Potassium Chloride 10 meq 08/16/20 08:00 08/16/20 09:04 Potassium Chloride 10 Meq Tablet PO 10 meq DAILYCM [facility]IE Administration Senna/Docusate Sodium 1 tablet 08/16/20 06:00 08/16/20 05:11 Senna/Docusate Sodium 1 Tablet PO 1 tablet BID [facility] Administration Sodium Chloride 10 - 40 ml 08/15/20 19:45 08/16/20 15:35 0.9% Nacl Picc Flush IV 20 ml UD PRN Administration PICC FLUSH Sodium Chloride 10 - 40 ml 08/15/20 21:17 0.9% Saline Lock 10 Ml Syringe IV UD PRN Open End PICC Flush Sodium Chloride 10 - 40 ml 08/15/20 21:17 0.9 % Nacl (Sterile) Posiflush 10 Ml IV UD PRN Port access or dressing change Problem List (Last Updated 07/30/20 @ 13:[address] Fly Taylor MD) Debility (Acute) Multiple falls (Chronic) Osteomyelitis of great toe of right foot (Acute) Peripheral arterial occlusive disease (Chronic) Hypertension (Chronic) Stroke (Chronic) Hyperlipidemia (Chronic) Diabetes mellitus (Chronic) Acute respiratory failure with hypoxia (Acute) Acute on chronic systolic congestive heart failure (Acute) Pneumonia (Acute) CAD (coronary artery disease) (Chronic) Carotid artery stenosis (Chronic) Vital Signs Temp Pulse Resp BP Pulse Ox 97.4 F L 80 18 138/63 H 96 08/16/20 14:06 08/16/20 14:06 08/16/20 14:06 08/16/20 14:06 08/16/20 14:06 Oxygen Flow Rate (L/min) 2 Oxygen Delivery Method Nasal Cannula Weight: 85.729 kg Body Mass Index (BMI) 25.6 Sodium 138 mmol/L (136-145) 08/16/20 05:20 Potassium 3.5 mmol/L (3.5-5.1) 08/16/20 05:20 Chloride 95 mmol/L (98-107) L 08/16/20 05:20 Carbon Dioxide 40.0 mmol/L (21.0-32.0) H 08/16/20 05:20 Anion Gap 3 (5-15) L 08/16/20 05:20 BUN 43 mg/dL (7-18) H 08/16/20 05:20 Creatinine 1.01 mg/dL (0.70-1.30) 08/16/20 05:20 Est GFR (MDRD) Af Amer 92 mL/min (>60) 08/16/20 05:20 Est GFR (MDRD) Non-Af 76 mL/min (>60) 08/16/20 05:20 BUN/Creatinine Ratio 42.6 RATIO (10-20) H 08/16/20 05:20 Glucose 168 mg/dL (74-106) H 08/16/20 05:20 Assessment/Plan: Psychotropic Medications: Unnecessary Medications: Bowel Regimen: - Provider Comments Provider responsibility: Provider responsible to enter orders to implement recommendations Provider Comments to Recommendations by Pharmacy: Agree
[2020-08-16 16:51] LABS: Bedside Glucose 135 mg/dL (70-110)
[2020-08-16] MEDS: Insulin Human 75/25 Kwickpen 10 UNIT SC (18:06)
--- NOTE | 2020-08-16 18:56 | NURSING ---
1830-states the food is stringy and chokes him, given jello and vanilla pudding and enc this.
[2020-08-16 21:20] LABS: Bedside Glucose 240 mg/dL (70-110)
--- NOTE | 2020-08-16 22:13 | NURSING ---
Patient's son called in and asking questions on COVID Vaccine. Son Emanuel Educated on Vaccine and answered questions Emanuel had. Emanuel is also concerned in patients condition if he should even receive vaccine.
[2020-08-17] MEDS: Menthol/Lanolin/Calamine/Znox 113 GM Tube 1 APPLIC TOPICAL ×2 (06:06→21:35)
[2020-08-17] MEDS: Nystatin Powder 15gm Bottle 1 APPLIC TOPICAL ×2 (06:07→21:35)
[2020-08-17] MEDS: Losartan Potassium 25 MG Tablet PO (06:09)
[2020-08-17] MEDS: Furosemide 40 MG Tablet PO (06:09)
[2020-08-17] MEDS: Pantoprazole Sodium 40 MG Tablet PO (06:10)
[2020-08-17] MEDS: Senna/Docusate Sodium 1 Tablet PO ×2 (06:10→17:41)
[2020-08-17 06:11] VITALS: BP 133/88; PULSE 92
[2020-08-17] MEDS: Metoprolol(XL)Succ 25 MG Tablet 12.5 MG PO (06:11)
[2020-08-17] MEDS: Montelukast 10 MG Tablet PO (06:11)
[2020-08-17] MEDS: Enoxaparin 40 MG/0.4 ML Syringe SC (06:13)
[2020-08-17 06:52] VITALS: BP 133/88; PULSE 95; RESP 18; TEMP 36.3; O2SAT 93
[2020-08-17 07:00] LABS: Bedside Glucose 176 mg/dL (70-110)
[2020-08-17] MEDS: Aspirin E.C. 81 MG Tablet PO (08:16)
[2020-08-17] MEDS: Insulin Human 75/25 Kwickpen 20 UNIT SC (08:16)
[2020-08-17] MEDS: Ascorbic Acid 500 MG Tablet 1000 MG PO (08:17)
--- NOTE | 2020-08-17 10:55 | NURSING ---
wound photo: right great toe
[2020-08-17 10:56] LABS: Bedside Glucose 166 mg/dL (70-110)
--- NOTE | 2020-08-17 10:56 | NURSING ---
wound photo: right great toe
--- NOTE | 2020-08-17 10:57 | NURSING ---
wound photo: buttocks
[2020-08-17 14:03] VITALS: BP 161/74; PULSE 92; RESP 15; TEMP 36.2; O2SAT 97
--- NOTE | 2020-08-17 14:55 | PN.ID_ITS ---
Patient Problems: Active and Suspected Problems (Last Updated 07/30/20 @ 13:[address] Fly Taylor MD) Debility (Acute) Osteomyelitis of great toe of right foot (Acute) Acute respiratory failure with hypoxia (Acute) Acute on chronic systolic congestive heart failure (Acute) Pneumonia (Acute) Subjective: Feeling ok, no fever, breathing fine - Physical Exam Vitals/I&O's: Vital Signs Temp Pulse Resp BP Pulse Ox 97.2 F L 92 15 161/74 H 97 08/17/20 14:03 08/17/20 14:03 08/17/20 14:03 08/17/20 14:03 08/17/20 14:03 Oxygen Flow Rate (L/min) 2 Oxygen Delivery Method Nasal Cannula Weight: 85.729 kg Body Mass Index (BMI) 25.6 Intake and Output for Last 24 Hours 08/15/20 08/16/20 08/17/20 23:59 23:59 23:59 Intake Total 112 / 112 1296 / 1296 432 / 432 Output Total 1275 / 1275 650 / 650 Balance 112 / 112 -218 / -218 General: Alert, Cooperative, No apparent distress Lungs: Clear to auscultation, Normal air movement Cardiovascular: Regular rate, Regular Rhythm Abdomen: Soft, Non Tender, Non-Distended Skin: Ulcer/ Wound - reviewed photo Laboratory Results 08/16/20 16:17: POC Glucose 135 H 08/16/20 21:07: POC Glucose 240 H 08/17/20 06:08: POC Glucose 176 H 08/17/20 10:43: POC Glucose 166 H Current Medications Acetaminophen (Acetaminophen 500 Mg Tablet) 1,000 mg PO Q6H PRN PRN PRN Reason: Pain Score 1-10 Ascorbic Acid (Ascorbic Acid 500 Mg Tablet) 1,000 mg PO DAILY@0800 [facility] Last Admin: 08/17/20 08:17 Dose: 1,000 mg Documented by: Aspirin (Aspirin E.C. 81 Mg Tablet) [facility] Last Admin: 08/17/20 08:16 Dose: 81 mg Documented by: Bisacodyl (Bisacodyl 10 Mg Suppository) 10 mg RECTAL DAILY PRN PRN PRN Reason: Constipation Last Admin: 08/16/20 01:58 Dose: 10 mg Documented by: Calamine/Phenol (Menthol/Lanolin/Calamine/Znox 113 Gm Tube) 1 applic TOPICAL 0600,2200 [facility]; Protocol Last Admin: 08/17/20 06:06 Dose: 1 applicatio Documented by: Enoxaparin Sodium (Enoxaparin 40 Mg/0.4 Ml Syringe) 40 mg SC DAILY@0600 [facility] Last Admin: 08/17/20 06:13 Dose: 40 mg Documented by: Furosemide (Furosemide 40 Mg Tablet) 40 mg PO DAILY [facility] Last Admin: 08/17/20 06:09 Dose: 40 mg Documented by: Heparin Sodium (Beef Lung) (Heparin Pf Lock 10 Units/Ml 50 Units/5 Ml Syringe) 50 units IV UD PRN PRN Reason: HEPARIN FLUSH Heparin Sodium (Beef Lung) (Heparin Pf Lock 10 Units/Ml 50 Units/5 Ml Syringe) 50 units IV UD PRN PRN Reason: PICC Line Heparin Flush Ampicillin Sodium/Sulbactam (Sodium 3 gm/ Sodium Chloride) 112 mls @ 150 mls/hr IV Q8 [facility] Stop: 09/04/20 22:01 Last Infusion: 08/17/20 08:17 Dose: Infused Documented by: Sodium Chloride () 250 mls @ 15 mls/hr IV .[id number] PRN PRN Reason: Saline Flush Insulin Lispro Protam/Lispro Human (Insulin Human 75/25 [place]) 10 unit SC DINNER [facility] Last Admin: 08/16/20 18:06 Dose: 10 units Documented by: Insulin Lispro Protam/Lispro Human (Insulin Human 75/25 Kwickpen) 20 unit SC BREAKFAST [facility] Last Admin: 08/17/20 08:16 Dose: 20 u Documented by: Losartan Potassium (Losartan Potassium 25 Mg Tablet) 25 mg PO DAILY [facility] Last Admin: 08/17/20 06:09 Dose: 25 mg Documented by: Metoprolol Succinate (Metoprolol(Xl)Succ 25 Mg Tablet) 12.5 mg PO DAILY [facility] Last Admin: 08/17/20 06:11 Dose: 12.5 mg Documented by: Montelukast Sodium (Montelukast 10 Mg Tablet) 10 mg PO DAILY [facility] Last Admin: 08/17/20 06:11 Dose: 10 mg Documented by: Multi-Ingredient Cream (Mineral Oil/Petrolatum,White Jar) 1 applic TOPICAL 0600,1800 [facility]; Protocol Last Admin: 08/17/20 06:08 Dose: 1 applicatio Documented by: Nutritional Formula (Nutritional Supplement (Christian) Packet) 1 packet PO BIDCM [facility] Last Admin: 08/17/20 08:17 Dose: 1 packet Documented by: Nystatin (Nystatin Powder 15gm Bottle) 1 applic TOPICAL 0600,2200 [facility]; Protocol Last Admin: 08/17/20 06:07 Dose: 1 applicatio Documented by: Pantoprazole Sodium (Pantoprazole Sodium 40 Mg Tablet) 40 mg PO DAILY [facility] Last Admin: 08/17/20 06:10 Dose: 40 mg Documented by: Potassium Chloride (Potassium Chloride 10 Meq Tablet) 10 meq PO DAILYCM [facility] Last Admin: 08/17/20 08:16 Dose: 10 meq Documented by: Senna/Docusate Sodium (Senna/Docusate Sodium 1 Tablet) 1 tablet PO BID [facility] Last Admin: 08/17/20 06:10 Dose: 1 tablet Documented by: Sodium Chloride (0.9% Nacl Picc Flush) 10 - 40 ml IV UD PRN PRN Reason: PICC FLUSH Last Admin: 08/16/20 21:33 Dose: 20 ml Documented by: Sodium Chloride (0.9% Saline Lock 10 Ml Syringe) 10 - 40 ml IV UD PRN PRN Reason: Open End PICC Flush Sodium Chloride (0.9 % Nacl (Sterile) Posiflush 10 Ml) 10 - 40 ml IV UD PRN PRN Reason: Port access or dressing change Medical Necessity - Tobacco Use Smoking Status: Former smoker Route of nutrition/ use of supplements: [] Nutritional Intake: [] IV Site: [] Rosenberg Catheter: [] - Assessment/Plan Antibiotics: [] Assessment/Plan: [] Active and Suspected Problems (Last Updated 07/30/20 @ 13:[address] Fly Taylor MD) Debility (Acute) Osteomyelitis of great toe of right foot (Acute) Acute respiratory failure with hypoxia (Acute) Acute on chronic systolic congestive heart failure (Acute) Pneumonia (Acute) Moved to TCU. 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 Raven garvey so far. Poor blood flow, angio done and no intervention able to be performed. Cx with MSSA and anaerobes. Cont unasyn until 09/04/20. Pt refused covid vaccine, discussed risks and benefits, and recommended he get it; he will think about it. Will continue to follow
[2020-08-17] MEDS: 0.9% NaCl PICC Flush IV ×3 (16:30→22:27)
[2020-08-17 17:36] LABS: Bedside Glucose 194 mg/dL (70-110)
[2020-08-17] MEDS: Insulin Human 75/25 Kwickpen 10 UNIT SC (17:41)
[2020-08-17 21:21] LABS: Bedside Glucose 196 mg/dL (70-110)
[2020-08-17 22:05] VITALS: PULSE 80; RESP 18; O2SAT 96
[2020-08-18 04:51] VITALS: BP 131/54; PULSE 78; RESP 18; TEMP 36.7; O2SAT 95
[2020-08-18 04:56] VITALS: BP 131/54; PULSE 78
[2020-08-18] MEDS: Metoprolol(XL)Succ 25 MG Tablet 12.5 MG PO (04:56)
[2020-08-18] MEDS: Senna/Docusate Sodium 1 Tablet PO ×2 (04:56→17:31)
[2020-08-18] MEDS: Enoxaparin 40 MG/0.4 ML Syringe SC (04:57)
[2020-08-18] MEDS: Montelukast 10 MG Tablet PO (04:58)
[2020-08-18] MEDS: Pantoprazole Sodium 40 MG Tablet PO (04:58)
[2020-08-18] MEDS: Losartan Potassium 25 MG Tablet PO (04:58)
[2020-08-18] MEDS: Furosemide 40 MG Tablet PO (04:59)
[2020-08-18] MEDS: Menthol/Lanolin/Calamine/Znox 113 GM Tube 1 APPLIC TOPICAL ×2 (05:01→22:02)
[2020-08-18] MEDS: 0.9% NaCl PICC Flush IV ×3 (05:07→19:55)
[2020-08-18] MEDS: Nystatin Powder 15gm Bottle 1 APPLIC TOPICAL ×2 (05:14→22:03)
[2020-08-18 06:26] LABS: Bedside Glucose 197 mg/dL (70-110)
[2020-08-18] MEDS: Insulin Human 75/25 Kwickpen 20 UNIT SC (08:51)
[2020-08-18] MEDS: Aspirin E.C. 81 MG Tablet PO (08:52)
[2020-08-18] MEDS: Ascorbic Acid 500 MG Tablet 1000 MG PO (08:52)
--- NOTE | 2020-08-18 10:31 | PCA ---
supervised pt with breakfast this morning mid way through his meal pt began coughing with each bite this aide has never experienced cough with meals before now with pt, so i asked pt if it was normal for him to cough between bites of food, pt stated that it is hereditary sometimes he does cough with meals and sometimes he doesn't.
--- NOTE | 2020-08-18 15:30 | NURSING ---
Addendum entered by Katina Kelly 08/18/20 15:31: rash noted to trunk and down into groin/thigh. recently received dose of unasyn. MD notified. see orders. Original Note: pt resting in bed, labored breathing noted. RR elevated at 26/minute. O2 sat 97% on 2L NC. MD notified. xray ordered.
[2020-08-18 15:36] VITALS: BP 151/79; PULSE 103; RESP 36; TEMP 36.4; O2SAT 97
--- NOTE | 2020-08-18 16:05 | RAD_ITS ---
STUDY: X-RAY CHEST REASON FOR EXAM: Male, 80 years old. SOB, CHF, RECENT PNEUMONIA TECHNIQUE: AP COMPARISON: 08/12/2020 FINDINGS: Right arm PICC is stable. Multilobar airspace disease involving predominantly the right upper lobe and bilateral lung bases table. Stable left larger than right pleural effusions. Normal size heart. Sternal wires and mediastinal surgical clips compatible with prior CABG. Normal visualized aortic arch and descending thoracic aorta. No acute bony process. There is no demonstrated abnormality of the visualized soft tissue structures of the upper abdomen. RAD/Chest PA and Lateral IMPRESSION: 1. Stable exam. Multilobar airspace disease suggesting pneumonia, edema or ARDS. Electronically Signed: Eyad Chung MD (Bro[place]) at 16:25 EST , Service support ,
[2020-08-18 16:45] LABS: Bedside Glucose 181 mg/dL (70-110)
[2020-08-18 17:28] VITALS: BP 142/68; PULSE 85; RESP 24; TEMP 36.2; O2SAT 94
[2020-08-18] MEDS: Loratadine 10 MG Tablet PO (17:30)
[2020-08-18] MEDS: Insulin Human 75/25 Kwickpen 10 UNIT SC (17:31)
--- NOTE | 2020-08-18 18:13 | NURSING ---
updated patients son, Emanuel on patient current status as per his request. per Emanuel, he would like called with any changes with his father at anytime.
--- NOTE | 2020-08-18 18:58 | NURSING ---
chest xray report called to dr staples, new order iv lasix 60mg x1 now
[2020-08-18] MEDS: Furosemide 100 MG/10 ML Vial 60 MG IV (19:54)
[2020-08-18 22:01] LABS: Bedside Glucose 236 mg/dL (70-110)
[2020-08-19 05:00] VITALS: BP 150/89; PULSE 82; RESP 18; TEMP 36.6; O2SAT 94
[2020-08-19 05:01] LABS: Bedside Glucose 183 mg/dL (70-110)
[2020-08-19 05:06] VITALS: BP 150/89; PULSE 82
[2020-08-19] MEDS: Montelukast 10 MG Tablet PO (05:06)
[2020-08-19] MEDS: Senna/Docusate Sodium 1 Tablet PO ×2 (05:06→17:42)
[2020-08-19] MEDS: Metoprolol(XL)Succ 25 MG Tablet 12.5 MG PO (05:06)
[2020-08-19] MEDS: Enoxaparin 40 MG/0.4 ML Syringe SC (05:06)
[2020-08-19] MEDS: Furosemide 40 MG Tablet PO (05:06)
[2020-08-19] MEDS: Menthol/Lanolin/Calamine/Znox 113 GM Tube 1 APPLIC TOPICAL ×2 (05:07→21:21)
[2020-08-19] MEDS: Pantoprazole Sodium 40 MG Tablet PO (05:07)
[2020-08-19] MEDS: Losartan Potassium 25 MG Tablet PO (05:07)
[2020-08-19] MEDS: Nystatin Powder 15gm Bottle 1 APPLIC TOPICAL ×2 (05:08→21:21)
[2020-08-19 06:26] LABS: Bedside Glucose 180 mg/dL (70-110)
[2020-08-19 08:10] LABS: Anion Gap 2 (5-15); BUN 38 mg/dL (7-18); BUN/Creat Ratio 40.7 RATIO (10-20); Chloride 98 mmol/L (98-107); Creatinine, Serum 0.93 mg/dL (0.70-1.30); EST Glomerular Filtration Rate 83 mL/min (>60); Est Glom Filt Rate - Afr Amer 100 mL/min (>60); Estimated Creatinine Clearance 70.69 ml/min; Glucose 180 mg/dL (74-106); Potassium 3.8 mmol/L (3.5-5.1); Sodium Level 140 mmol/L (136-145)
[2020-08-19] MEDS: Ascorbic Acid 500 MG Tablet 1000 MG PO (08:12)
[2020-08-19] MEDS: Aspirin E.C. 81 MG Tablet PO (08:13)
[2020-08-19] MEDS: Insulin Human 75/25 Kwickpen 20 UNIT SC (08:19)
[2020-08-19] MEDS: Furosemide 40 MG/4 ML Vial IV ×2 (10:02→17:43)
[2020-08-19] MEDS: 0.9% NaCl PICC Flush IV ×3 (10:03→17:43)
[2020-08-19 11:31] LABS: Bedside Glucose 207 mg/dL (70-110)
[2020-08-19 14:38] VITALS: BP 138/71; PULSE 77; RESP 22; TEMP 35.9; O2SAT 94
[2020-08-19 16:26] LABS: Bedside Glucose 180 mg/dL (70-110)
[2020-08-19] MEDS: Insulin Human 75/25 Kwickpen 10 UNIT SC (17:41)
[2020-08-19] MEDS: SACUBITRIL/VALSARTAN 24/26 MG TABLET 1 EACH PO (17:43)
[2020-08-19 20:48] VITALS: PULSE 93
[2020-08-19 21:16] LABS: Bedside Glucose 249 mg/dL (70-110)
[2020-08-19 21:19] VITALS: BP 135/66; PULSE 91; RESP 38; TEMP 36.3; O2SAT 92
--- NOTE | 2020-08-19 22:30 | NURSING ---
DR HARPER MADE AWARE OF PT'S INCREASED WORK OF BREATHING. THIS RN WAS ADVISED TO SEND PT TO ED FOR ADDITIONAL EVAL.
[2020-08-20 05:48] VITALS: BP 145/67; PULSE 87; RESP 28; TEMP 36.3; O2SAT 92
[2020-08-20] MEDS: Enoxaparin 40 MG/0.4 ML Syringe SC (05:59)
[2020-08-20] MEDS: Menthol/Lanolin/Calamine/Znox 113 GM Tube 1 APPLIC TOPICAL ×2 (05:59→21:00)
[2020-08-20 06:00] VITALS: PULSE 88
[2020-08-20] MEDS: Senna/Docusate Sodium 1 Tablet PO ×2 (06:00→17:30)
[2020-08-20] MEDS: Pantoprazole Sodium 40 MG Tablet PO (06:00)
[2020-08-20] MEDS: Metoprolol(XL)Succ 25 MG Tablet 12.5 MG PO (06:00)
[2020-08-20] MEDS: SACUBITRIL/VALSARTAN 24/26 MG TABLET 1 EACH PO ×2 (06:00→17:30)
[2020-08-20] MEDS: Nystatin Powder 15gm Bottle 1 APPLIC TOPICAL ×2 (06:01→20:59)
[2020-08-20] MEDS: Montelukast 10 MG Tablet PO (06:01)
[2020-08-20] MEDS: 0.9% NaCl PICC Flush IV ×5 (06:02→23:27)
[2020-08-20 06:51] LABS: Bedside Glucose 178 mg/dL (70-110)
[2020-08-20 07:21] VITALS: O2SAT 92
[2020-08-20] MEDS: Insulin Human 75/25 Kwickpen 20 UNIT SC (08:21)
[2020-08-20] MEDS: Aspirin E.C. 81 MG Tablet PO (08:21)
[2020-08-20] MEDS: Ascorbic Acid 500 MG Tablet 1000 MG PO (08:22)
[2020-08-20] MEDS: Furosemide 40 MG/4 ML Vial IV ×3 (10:07→23:28)
--- NOTE | 2020-08-20 11:20 | NURSING ---
wound photo: right great toe
--- NOTE | 2020-08-20 11:20 | NURSING ---
wound photo: right great toe
[2020-08-20 11:21] LABS: Bedside Glucose 173 mg/dL (70-110)
--- NOTE | 2020-08-20 13:38 | CASEMGMT ---
Social Work Received Medicaid pending # from [facility]. #[id number]. Family requested SNF referrals to [facility], [facility] and [facility]. Notified son that [facility] and [facility] are not currently taking admissions. Referral made to [facility]. Inquired of other SNFs to refer to. Will continue to follow. Olga Templeton, JONATHAN NOBLEW
[2020-08-20 14:00] VITALS: BP 127/61; PULSE 73; RESP 20; TEMP 36.4; O2SAT 94
--- NOTE | 2020-08-20 14:26 | PCM.PROGNOTE ---
Patient Problems: Active and Suspected Problems (Last Updated 07/30/20 @ 13:[address] Fly Taylor MD) Debility (Acute) Osteomyelitis of great toe of right foot (Acute) Acute respiratory failure with hypoxia (Acute) Acute on chronic systolic congestive heart failure (Acute) Pneumonia (Acute) - Physical Exam Vitals/I&O's: Vital Signs Temp Pulse Resp BP Pulse Ox 97.6 F L 73 20 H 127/61 H 94 08/20/20 14:00 08/20/20 14:00 08/20/20 14:00 08/20/20 14:00 08/20/20 14:00 Oxygen Flow Rate (L/min) 2 Oxygen Delivery Method Nasal Cannula Weight: 87.09 kg Body Mass Index (BMI) 25.6 Intake and Output for Last 24 Hours 08/18/20 08/19/20 08/20/20 23:59 23:59 23:59 Intake Total 601.0 / 601.0 1305.0 / 1305.0 592 / 592 Output Total 1025 / 1025 3475 / 3475 400 / 400 Balance -424.0 / -424.0 -2170.0 / -2170.0 192 / 192 General: Cooperative, No apparent distress Extremities: - - Right 1st toe with dry necrosis to the distal aspect, no drainage, there is no erythema, no streaking, no maloder, nothing wet - it is dry and stable. There are no other open lesions or areas, necrosis or tissue breakdown bilateral foot or ankle. No pain to foot or ankle bilateral. Microbiology Past 72 Hours 08/20/20 11:35 Nasal Secretion SARS-CoV-2 Antigen (Rapid) - Final Laboratory Results 08/19/20 16:15: POC Glucose 180 H 08/19/20 21:01: POC Glucose 249 H 08/20/20 06:32: POC Glucose 178 H 08/20/20 11:14: POC Glucose 173 H Current Medications Acetaminophen (Acetaminophen 500 Mg Tablet) 1,000 mg PO Q6H PRN PRN PRN Reason: Pain Score 1-10 Ascorbic Acid (Ascorbic Acid 500 Mg Tablet) 1,000 mg PO DAILY@0800 [facility] Last Admin: 08/20/20 08:22 Dose: 1,000 mg Documented by: Aspirin (Aspirin E.C. 81 Mg Tablet) [facility] Last Admin: 08/20/20 08:21 Dose: 81 mg Documented by: Bisacodyl (Bisacodyl 10 Mg Suppository) 10 mg RECTAL DAILY PRN PRN PRN Reason: Constipation Last Admin: 08/16/20 01:58 Dose: 10 mg Documented by: Calamine/Phenol (Menthol/Lanolin/Calamine/Znox 113 Gm Tube) 1 applic TOPICAL 0600,2200 [facility]; Protocol Last Admin: 08/20/20 05:59 Dose: 1 applicatio Documented by: Enoxaparin Sodium (Enoxaparin 40 Mg/0.4 Ml Syringe) 40 mg SC DAILY@0600 [facility] Last Admin: 08/20/20 05:59 Dose: 40 mg Documented by: Furosemide (Furosemide 40 Mg/4 Ml Vial) 40 mg IV BID@1000,1800 [facility] Last Admin: 08/20/20 10:07 Dose: 40 mg Documented by: Heparin Sodium (Beef Lung) (Heparin Pf Lock 10 Units/Ml 50 Units/5 Ml Syringe) 50 units IV UD PRN PRN Reason: HEPARIN FLUSH Heparin Sodium (Beef Lung) (Heparin Pf Lock 10 Units/Ml 50 Units/5 Ml Syringe) 50 units IV UD PRN PRN Reason: PICC Line Heparin Flush Ampicillin Sodium/Sulbactam (Sodium 3 gm/ Sodium Chloride) 112 mls @ 150 mls/hr IV Q8 [facility] Stop: 09/04/20 22:01 Last Admin: 08/20/20 13:18 Dose: 150 mls/hr Documented by: Sodium Chloride () 250 mls @ 15 mls/hr IV .[id number] PRN PRN Reason: Saline Flush Last Infusion: 08/20/20 13:19 Dose: 0 mls/hr Documented by: Insulin Lispro Protam/Lispro Human (Insulin Human 75/25 Kwickpen) 10 unit SC DINNER [facility] Last Admin: 08/19/20 17:41 Dose: 10 units Documented by: Insulin Lispro Protam/Lispro Human (Insulin Human 75/25 [place]wickpen) 20 unit SC BREAKFAST [facility] Last Admin: 08/20/20 08:21 Dose: 20 u Documented by: Metoprolol Succinate (Metoprolol(Xl)Succ 25 Mg Tablet) 12.5 mg PO DAILY [facility] Last Admin: 08/20/20 06:00 Dose: 12.5 mg Documented by: Montelukast Sodium (Montelukast 10 Mg Tablet) 10 mg PO DAILY [facility] Last Admin: 08/20/20 06:01 Dose: 10 mg Documented by: Multi-Ingredient Cream (Mineral Oil/Petrolatum,White Jar) 1 applic TOPICAL 0600,1800 [facility]; Protocol Last Admin: 08/20/20 06:01 Dose: 1 applicatio Documented by: Nutritional Formula (Nutritional Supplement (Christian) Packet) [facility] Last Admin: 08/20/20 08:22 Dose: 1 packet Documented by: Nystatin (Nystatin Powder 15gm Bottle) 1 applic TOPICAL 0600,2200 [facility]; Protocol Last Admin: 08/20/20 06:01 Dose: 1 applicatio Documented by: Pantoprazole Sodium (Pantoprazole Sodium 40 Mg Tablet) 40 mg PO DAILY [facility] Last Admin: 08/20/20 06:00 Dose: 40 mg Documented by: Potassium Chloride (Potassium Chloride 10 Meq Tablet) [facility]q [facility] Last Admin: 08/20/20 08:22 Dose: 10 meq Documented by: Sacubitril/Valsartan (Sacubitril/Valsartan 24/26 Mg Tablet) 1 each PO BID [facility] Stop: 09/02/20 18:01 Last Admin: 08/20/20 06:00 Dose: 1 each Documented by: Sacubitril/Valsartan (Sacubitril/Valsartan 49-51 Mg Tablet) 1 each PO BID [facility] Stop: 09/17/20 18:01 Sacubitril/Valsartan (Sacubitril/Valsartan 97-103 Mg Tablet) 1 each PO BID [facility] Senna/Docusate Sodium (Senna/Docusate Sodium 1 Tablet) 1 tablet PO BID [facility] Last Admin: 08/20/20 06:00 Dose: 1 tablet Documented by: Sodium Chloride (0.9% Nacl Picc Flush) 10 - 40 ml IV UD PRN PRN Reason: PICC FLUSH Last Admin: 08/20/20 13:19 Dose: 20 ml Documented by: Sodium Chloride (0.9% Saline Lock 10 Ml Syringe) 10 - 40 ml IV UD PRN PRN Reason: Open End PICC Flush Sodium Chloride (0.9 % Nacl (Sterile) Posiflush 10 Ml) 10 - 40 ml IV UD PRN PRN Reason: Port access or dressing change Medical Necessity - Tobacco Use Smoking Status: Former smoker Assessment/Plan All Active Problems (Last Updated 07/30/20 @ 13:[address] 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 Reviewed diagnostic data. We have discussed/consulted with Dr. Suarez who performed lower extremity angiogram - Patient has very poor arterial flow to toe and foot, and has very questionable healing potential for any toe or partial foot amputation. Right 1st toe is dry and stable at this time. We discussed the options and with patient permission discussed with patient's son Emanuel...at this time we have decided we will continue to monitor the toe, continue to let demarcate, perform local wound care, as well as offloading; and patient also on antibiotics at this time - followed by Dr. Garcia/ID. Patient understands eventually he may require an amputation. Continue daily dressing changes with betadine covered by DSD. Continue with antibiotic therapy per Infectious Disease/ID service. Discussed with Dr. Garcia. No weightbearing to right forefoot, ok to put weight on right heel for transitions only. Podiatry will continue to follow. Please contact if any concerns.
--- NOTE | 2020-08-20 16:16 | CHAPLAIN ---
Type of Pastoral Visit ___ Initial Visit _x__ Follow-up Visit ___ On-call Visit ___ General Patient Visit ___ Spiritual Assessment ___ Family Conference ___ Bereavement ___ Rapid Response ___ Code Blue ___ Other (describe below) Pastoral Care Referral From _x__ Patient ___ Family ___ Nurse ___ Physician ___ Database Engineer ___ Inspector Dials ___ Other (describe below) Sacrament/Intervention _x__ Active listening ___ Anointing ___ Denominational ___ Bereavement ___ Communion _x__ Pham exploration ___ ___ Life review _x__ Prayer ___ Reconciliation ___ Sacrament of Sick _x__ Supportive presence ___ Wedding ___ Other (describe below) Pastoral Comments this was a follow up visit; pt lies still in bed with eyes open but he closes them often during visit; otherwise pt does not move; pt states at very beginning that I'm not going to be here long and states that means he is going to before very long; asked about patient feelings and also about his desires for this time; pt speaks with confidence that this (dying soon) is good and heaven is going to be really good; pt affirms his pham in the Bible and what it says about going to heaven; pt says that his has and he will be with her again; pt says he does not have other concerns or worries about this; pt welcomes presence and prayer
[2020-08-20 16:31] LABS: Bedside Glucose 117 mg/dL (70-110)
[2020-08-20] MEDS: Insulin Human 75/25 Kwickpen 10 UNIT SC (17:32)
[2020-08-20] MEDS: 0.9% Saline Lock 10 ML Syringe IV (21:03)
[2020-08-20 21:25] VITALS: BP 152/77; PULSE 96; RESP 21; TEMP 35.8; O2SAT 93
[2020-08-20 21:30] VITALS: O2SAT 93
[2020-08-20] MEDS: Acetaminophen 500 MG Tablet 1000 MG PO (21:42)
--- NOTE | 2020-08-20 22:02 | NURSING ---
Pt c/o more short of breath this evening, resp at 21, pox 90% on 2L, o2 increased to 3L, pox up to 93%. crackles/rhonchi noted, please see vitals. Dr. Alejo notified, new order for x1 Lasix.
[2020-08-21 06:26] LABS: Bedside Glucose 102 mg/dL (70-110)
[2020-08-21] MEDS: Nystatin Powder 15gm Bottle 1 APPLIC TOPICAL (06:36)
[2020-08-21] MEDS: Menthol/Lanolin/Calamine/Znox 113 GM Tube 1 APPLIC TOPICAL (06:36)
[2020-08-21] MEDS: Enoxaparin 40 MG/0.4 ML Syringe SC (06:37)
[2020-08-21] MEDS: 0.9% NaCl PICC Flush IV ×2 (06:42→10:52)
[2020-08-21 06:45] VITALS: O2SAT 96
[2020-08-21 06:51] VITALS: BP 140/66; PULSE 58; RESP 15; TEMP 35.9; O2SAT 98
--- NOTE | 2020-08-21 07:27 | NURSING ---
All PO am meds held due to lethargy and poor po intake.
[2020-08-21 08:11] VITALS: BP 140/66; PULSE 58
--- NOTE | 2020-08-21 08:28 | DCINST_ITS ---
- Discharge Diagnoses Current Active Problems: Current Active and Chronic Problems (Last Updated 07/30/20 @ 13:[address] Fly Taylor MD) Debility (Acute) Multiple falls (Chronic) Osteomyelitis of great toe of right foot (Acute) Peripheral arterial occlusive disease (Chronic) Hypertension (Chronic) Stroke (Chronic) Hyperlipidemia (Chronic) Diabetes mellitus (Chronic) Acute respiratory failure with hypoxia (Acute) Acute on chronic systolic congestive heart failure (Acute) Pneumonia (Acute) CAD (coronary artery disease) (Chronic) Carotid artery stenosis (Chronic) R CEA 2017 You will use the following diet at home:: No restrictions, Regular Your food should be the consistency of: Regular Your liquids should be the consistency of: Regular/Thin Allergies/Adverse Reactions: Allergies Dxqwpxw-Oeg-Pny Reductase Inhibitor Adverse Reaction (Severe, Verified 08/19/20 23:09) mylagias lisinopril Adverse Reaction (Verified 08/19/20 23:09) cough Medications to take at Discharge Insulin Human 75/25 [Humalog Mix 75-25 Kwikpen (BKC)] 10 unit SQ DINNER 08/12/20 Insulin Lispro Protamin/Lispro [Insulin Lispro Mix 75-25 Kwkpn] 20 unit SQ BREAKFAST 08/12/20 Insulin Human 75/25 [Humalog Mix 75-25 Kwikpen (BKC)] 20 unit SQ BREAKFAST 08/19/20 Primary Care Physician: Karen Lowe MD [Primary Care Provider] - Please follow up with your Primary Care Physician in: N/A. Test Results: Test results from this visit will be discussed in further detail at your follow- up appointment, if applicable. Please Follow Up With: Karen Lowe MD When: N/A. Please Follow Up With: Movement Disorder Neurologist When: N/A. Please Follow Up With: Geriatric driving assessment When: N/A. Proposed Discharge Date: 08/21/20
--- NOTE | 2020-08-21 08:29 | PCM.DC.SUM ---
Discharge Date and Diagnosis - Problem List Patient Problems: Active and Suspected Problems (Last Updated 07/30/20 @ 13:[address] Fly Taylor MD) Debility (Acute) Osteomyelitis of great toe of right foot (Acute) Acute respiratory failure with hypoxia (Acute) Acute on chronic systolic congestive heart failure (Acute) Pneumonia (Acute) Date of Admission: 08/15/20 Date of Discharge: 08/21/20 - Primary Discharge Diagnosis Acute Problems: Active Problems (Last Updated 07/30/20 @ 13:[address] Fly Taylor MD) Debility (Acute) Osteomyelitis of great toe of right foot (Acute) Acute respiratory failure with hypoxia (Acute) Acute on chronic systolic congestive heart failure (Acute) Pneumonia (Acute) - Secondary Discharge Diagnosis Chronic Problems: Chronic Problems (Last Updated 07/30/20 @ 13:[address] 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 evidence of necrosis (Chronic) Pleural effusion on left (Chronic) loculated per CT Chest 07/2019 thoracentesis 07/2019 Mass of right lung (Chronic) bronchoscopy 07/2019 Old inferior wall myocardial infarction (Chronic) Atherosclerotic heart disease of kaibab coronary artery without angina pectoris (Chronic) History of non-ST elevation myocardial infarction (NSTEMI) (Chronic 07/21/17) Ischemic cardiomyopathy (Chronic) H/O coronary artery bypass surgery (Chronic 08/04/17) History of CVA (cerebrovascular accident) (Chronic 07/2017) Right bundle branch block (RBBB) (Chronic) Carotid artery stenosis (Chronic) R CEA 2017 Essential (primary) hypertension (Chronic) Claudication of both lower extremities (Chronic) Peripheral vascular occlusive disease (Chronic) [facility] Hospital Course and Treatment Consultations 08/16/20 01:50 Consult: Onc/Wound/medical assistant dermatology Routine Comment: Reason for Consult:: Coccyx pressure injury; Right Great Toe Operations: None Procedures: None Summary of Care Provided: The patient is a 80 year old Male with below past medical history hospitalized for acute hypoxic respiratory failure secondary to acute on chronic systolic congestive heart failure, complicated by MSSA osteomyelitis right great toe, Peripheral arterial occlusive disease, admitted to TCU with debility, here for rehabilitation, strengthening, intravenous antibiotics, prior to discharge home alone. Resident actively dying. Discharge home with hospice. Patient Problems: Active and Suspected Problems (Last Updated 07/30/20 @ 13:[address] Fly Taylor MD) Debility (Acute) Osteomyelitis of great toe of right foot (Acute) Acute respiratory failure with hypoxia (Acute) Acute on chronic systolic congestive heart failure (Acute) Pneumonia (Acute) - Physical Exam Vitals/I&O's: Vital Signs Temp Pulse Resp BP Pulse Ox 96.7 F L 58 L 15 140/66 H 98 08/21/20 06:51 08/21/20 08:11 08/21/20 06:51 08/21/20 08:11 08/21/20 06:51 Oxygen Flow Rate (L/min) 3 Oxygen Delivery Method Nasal Cannula Weight: 87.09 kg Body Mass Index (BMI) 25.6 Intake and Output for Last 24 Hours 08/19/20 08/20/20 08/21/20 23:59 23:59 23:59 Intake Total 1305.0 / 1305.0 983 / 983 222 / 222 Output Total 3475 / 3475 1999 / 1999 1025 / 1025 Balance -2170.0 / -2170.0 -1017 / -1017 -803 / -803 Microbiology Past 72 Hours 08/20/20 11:35 Nasal Secretion SARS-CoV-2 Antigen (Rapid) - Final Laboratory Results 08/20/20 11:14: POC Glucose 173 H 08/20/20 16:27: POC Glucose 117 H 08/21/20 06:14: POC Glucose 102 Current Medications Acetaminophen (Acetaminophen 500 Mg Tablet) 1,000 mg PO Q6H PRN PRN PRN Reason: Pain Score 1-10 Last Admin: 08/20/20 21:42 Dose: 1,000 mg Documented by: Ascorbic Acid (Ascorbic Acid 500 Mg Tablet) 1,000 mg PO DAILY@0800 [facility] Last Admin: 08/21/20 08:12 Dose: Not Given Documented by: Aspirin (Aspirin E.C. 81 Mg Tablet) 81 mg PO DAILYCM [facility] Last Admin: 08/21/20 08:11 Dose: Not Given Documented by: Bisacodyl (Bisacodyl 10 Mg Suppository) 10 mg RECTAL DAILY PRN PRN PRN Reason: Constipation Last Admin: 08/16/20 01:58 Dose: 10 mg Documented by: Calamine/Phenol (Menthol/Lanolin/Calamine/Znox 113 Gm Tube) 1 applic TOPICAL 0600,2200 [facility]; Protocol Last Admin: 08/21/20 06:36 Dose: 1 applicatio Documented by: Enoxaparin Sodium (Enoxaparin 40 Mg/0.4 Ml Syringe) 40 mg SC DAILY@0600 [facility] Last Admin: 08/21/20 06:37 Dose: 40 mg Documented by: Furosemide (Furosemide 40 Mg/4 Ml Vial) 40 mg IV BID@1000,1800 [facility] Last Admin: 08/20/20 17:30 Dose: 40 mg Documented by: Heparin Sodium (Beef Lung) (Heparin Pf Lock 10 Units/Ml 50 Units/5 Ml Syringe) 50 units IV UD PRN PRN Reason: HEPARIN FLUSH Heparin Sodium (Beef Lung) (Heparin Pf Lock 10 Units/Ml 50 Units/5 Ml Syringe) 50 units IV UD PRN PRN Reason: PICC Line Heparin Flush Ampicillin Sodium/Sulbactam (Sodium 3 gm/ Sodium Chloride) 112 mls @ 150 mls/hr IV Q8 [facility] Stop: 09/04/20 22:01 Last Infusion: 08/21/20 08:12 Dose: Infused Documented by: Sodium Chloride () 250 mls @ 15 mls/hr IV .[id number] PRN PRN Reason: Saline Flush Last Infusion: 08/20/20 15:37 Dose: 0 mls/hr Documented by: Insulin Lispro Protam/Lispro Human (Insulin Human 75/25 Kwickpen) 10 unit SC DINNER [facility] Last Admin: 08/20/20 17:32 Dose: 10 units Documented by: Insulin Lispro Protam/Lispro Human (Insulin Human 75/25 Kwickpen) 20 unit SC BREAKFAST [facility] Last Admin: 08/21/20 08:11 Dose: Not Given Documented by: Metoprolol Succinate (Metoprolol(Xl)Succ 25 Mg Tablet) 12.5 mg PO DAILY [facility] Last Admin: 08/21/20 08:11 Dose: Not Given Documented by: Montelukast Sodium (Montelukast 10 Mg Tablet) 10 mg PO DAILY [facility] Last Admin: 08/21/20 08:11 Dose: Not Given Documented by: Multi-Ingredient Cream (Mineral Oil/Petrolatum,White Jar) 1 applic TOPICAL 0600,1800 [facility]; Protocol Last Admin: 08/21/20 06:36 Dose: 1 applicatio Documented by: Nutritional Formula (Nutritional Supplement (Christian) Packet) [facility] Last Admin: 08/21/20 08:12 Dose: Not Given Documented by: Nystatin (Nystatin Powder 15gm Bottle) 1 applic TOPICAL 0600,2200 [facility]; Protocol Last Admin: 08/21/20 06:36 Dose: 1 applicatio Documented by: Pantoprazole Sodium (Pantoprazole Sodium 40 Mg Tablet) 40 mg PO DAILY [facility] Last Admin: 08/21/20 08:10 Dose: Not Given Documented by: Potassium Chloride (Potassium Chloride 10 Meq Tablet) [facility]q [facility] Last Admin: 08/21/20 08:12 Dose: Not Given Documented by: Sacubitril/Valsartan (Sacubitril/Valsartan 24/26 Mg Tablet) 1 each PO BID [facility] Stop: 09/02/20 18:01 Last Admin: 08/21/20 08:10 Dose: Not Given Documented by: Sacubitril/Valsartan (Sacubitril/Valsartan 49-51 Mg Tablet) 1 each PO BID [facility] Stop: 09/17/20 18:01 Sacubitril/Valsartan (Sacubitril/Valsartan 97-103 Mg Tablet) 1 each PO BID [facility] Senna/Docusate Sodium (Senna/Docusate Sodium 1 Tablet) 1 tablet PO BID [facility] Last Admin: 08/21/20 08:10 Dose: Not Given Documented by: Sodium Chloride (0.9% Nacl Picc Flush) 10 - 40 ml IV UD PRN PRN Reason: PICC FLUSH Last Admin: 08/21/20 06:42 Dose: 10 ml Documented by: Sodium Chloride (0.9% Saline Lock 10 Ml Syringe) 10 - 40 ml IV UD PRN PRN Reason: Open End PICC Flush Last Admin: 08/20/20 21:03 Dose: 20 ml Documented by: Sodium Chloride (0.9 % Nacl (Sterile) Posiflush 10 Ml) 10 - 40 ml IV UD PRN PRN Reason: Port access or dressing change Discharge Diet: No Restrictions Home Medications: Medications to take at Discharge Insulin Human 75/25 [Humalog Mix 75-25 Kwikpen (BKC)] 10 unit SQ DINNER 08/12/20 Insulin Lispro Protamin/Lispro [Insulin Lispro Mix 75-25 Kwkpn] 20 unit SQ BREAKFAST 08/12/20 Insulin Human 75/25 [Humalog Mix 75-25 Kwikpen (BKC)] 20 unit SQ BREAKFAST 08/19/20 Primary Care Physician: Karen Lowe MD [Primary Care Provider] - Please follow up with your Primary Care Physician in: N/A. Please Follow Up With: Karen Lowe MD When: N/A. Please Follow Up With: Movement Disorder Neurologist When: N/A. Please Follow Up With: Geriatric driving assessment When: N/A. Disposition: Home with Hospice Minutes spent on discharge:: 30 Patient Condition:: Poor Medical Necessity - Tobacco Use Smoking Status: Former smoker Meaningful Use Info Meaningful Use Diagnoses (Choose all that apply): None applicable
[2020-08-21 09:06] LABS: Absolute Lymphocyte Count 0.69 X10^3/uL (0.83-4.51); Absolute Neutrophil Count 11.8 X10^3/uL (2.0-7.7); Basophil% 0.7 % (0-1); Eosinophil# 1.52 X10^3/uL; Eosinophils% 9.9 % (0-5); Hematocrit 35.1 % (40-54); Hemoglobin 10.9 g/dL (13.0-16.5); Lymphocyte # 0.69 X10^3/ul (4.0); Lymphocyte % 4.5 % (19-41); Mean Corp Hgb Conc 31.1 g/dL (32-36); Mean Corpuscular Hgb 29.6 pg (27.0-32.0); Mean Corpuscular Volume 95.4 fL (80-94); Mean Platelet Vol. 11.1 fl (6.2-12.0); Monocyte# 1.12 X10^3/uL; Monocyte% 7.3 % (0-10); NRBC Flagged by Analyzer 0 % (0-5); Neutrophil # 11.78 X10^3/uL (2.7-7.7); Neutrophil % 77.1 % (47-70); Platelet Count 301 K/mm3 (150-450); RBC Distribution Width CV 14.7 % (11.6-14.6); RBC Distribution Width SD 50.6 fl (35.1-43.9); Red Blood Count 3.68 M/mm3 (4.6-6.2); White Blood Count 15.3 K/mm3 (4.4-11.0)
[2020-08-21 09:18] LABS: Anion Gap 2 (5-15); BUN 35 mg/dL (7-18); BUN/Creat Ratio 38.7 RATIO (10-20); Calcium,Total 8.5 mg/dL (8.5-10.1); Chloride 98 mmol/L (98-107); EST Glomerular Filtration Rate 86 mL/min (>60); Est Glom Filt Rate - Afr Amer 104 mL/min (>60); Estimated Creatinine Clearance 73.05 ml/min; Glucose 94 mg/dL (74-106); Potassium 3.6 mmol/L (3.5-5.1); Sodium Level 143 mmol/L (136-145)
--- NOTE | 2020-08-21 09:45 | CASEMGMT ---
Addendum entered by Olga Templeton 08/21/20 10:35: [facility] has family meeting scheduled and DME delivery set. Scheduled cot transport through [facility] at 2 pm. Notified hospice and son. Plan: DC home with [facility] 08/21 Original Note: Social Work Dr. Alejo spoke with nursing- pt declining and requesting to hold therapy. Sammie Alejo spoke with son and pt about home on hospice this date. All agreeable. Spoke with son to answer questions and explain hospice services/process. Son appreciative. Referral made to [facility]. Will continue to follow. Olga Templeton, JONATHAN NOBLEW
[2020-08-21] MEDS: Furosemide 40 MG/4 ML Vial IV (10:39)
[2020-08-21 10:41] LABS: Bedside Glucose 102 mg/dL (70-110)
[2020-08-21 10:56] VITALS: PULSE 82; RESP 18; O2SAT 94
[2020-08-21 13:22] VITALS: BP 138/75; PULSE 86; RESP 17; TEMP 36.4; O2SAT 98
[2020-08-21 16:35] VITALS: BP 125/79; PULSE 93; RESP 18; TEMP 36.3; O2SAT 98
--- NOTE | 2020-08-28 08:48 | MDS.RN ---
Information for the mds was obtained from review of the clinical record, interview of resident, staff, and direct observation of resident's care.
== END 2020-08-21 16:30 | disposition hospice, home (50) | DRG 638 ==
PROVIDERS: Admitting Provider Family Medicine Geriatric Medicine; PCP Internal Medicine; Visit Provider Family Medicine Geriatric Medicine
DX: E11.69 Type 2 diabetes mellitus with other specified complication (principal); L97.516 Non-pressure chronic ulcer of other part of right foot with bone involvement without evidence of necrosis; I50.42 Chronic combined systolic (congestive) and diastolic (congestive) heart failure; M86.171 Other acute osteomyelitis, right ankle and foot; E11.51 Type 2 diabetes mellitus with diabetic peripheral angiopathy without gangrene; E11.40 Type 2 diabetes mellitus with diabetic neuropathy, unspecified; E11.621 Type 2 diabetes mellitus with foot ulcer; E78.5 Hyperlipidemia, unspecified; I11.0 Hypertensive heart disease with heart failure; I25.10 Atherosclerotic heart disease of native coronary artery without angina pectoris; I25.2 Old myocardial infarction; B95.61 Methicillin susceptible Staphylococcus aureus infection as the cause of diseases classified elsewhere; K21.9 Gastro-esophageal reflux disease without esophagitis; E87.6 Hypokalemia; R29.6 Repeated falls; Z87.891 Personal history of nicotine dependence; L89.151 Pressure ulcer of sacral region, stage 1
CPT/HCPCS: 71046; 80048; 82962; 85025; 87426; 92523; 92526; 92610; 97110; 97162; 97166; 97530; 97535; J7050; A4216; J0295; J1940

== ENCOUNTER 2020-08-19 22:49 | Emergency (ER) | payer MEDICARE, OTHER, SELFPAY ==
[2020-08-15 18:54] VITALS: BMI 25.6
[2020-08-19 22:51] VITALS: BP 171/78; PULSE 87; RESP 33; TEMP 36.3; O2SAT 93; BMI 24.4
--- NOTE | 2020-08-19 23:13 | EKG12_ITS ---
Test Reason : SOB Blood Pressure : / mmHG Vent. Rate : 085 BPM Atrial Rate : 085 BPM P-R Int : 232 ms QRS Dur : 134 ms QT Int : 420 ms P-R-T Axes : 073 -56 114 degrees QTc Int : 499 ms Sinus rhythm with sinus arrhythmia with 1st degree A-V block Left axis deviation Right bundle branch block Possible Left ventricular hypertrophy with repolarization abnormality Possible Lateral infarct , age undetermined Inferior infarct , ahe undetermined, cannot be excluded Abnormal ECG Confirmed by LUISA URENA, CARLOS ([id number]), multimedia editor YASSINE THURMAN ([id number]) on 08/22/2020 11:03:21 AM Referred By: HENRY Confirmed By:CARLOS MORAN MD
--- NOTE | 2020-08-19 23:13 | RAD_ITS ---
PT INCREASED SOB FROM [facility] TCU. PT STARTED ON LASIX BID TODAY FOR CHF. SOB/ WORK OF BREATHING WORSENING PER NURSING STAFF EXAMINATION/TECHNIQUE: XR Chest 1 View: COMPARISON: August 18, 2020 FINDINGS: LINES/DEVICES: Right sided PICC line in similar position to prior study. LUNGS: Again noted are bilateral airspace opacities greatest in the right upper lobe. Overall appearance is similar to prior study. Left greater than right pleural effusion similar MEDIASTINUM AND CARDIOVASCULAR STRUCTURES: Cardiac silhouette not enlarged. Central airways and mediastinal contour are unremarkable. BONES AND SOFT TISSUES: Midline sternotomy wires RAD/Chest 1 View (Portable) IMPRESSION: No significant change in bilateral airspace opacities when compared to prior study Left greater than right pleural effusion similar at 0003 Reported and signed by: Zina Carrasco DO Electronically Signed: Zina Carrasco DO at 0:02 EST Tel , Service support ,
--- NOTE | 2020-08-19 23:15 | ED.DCSUM_ITS ---
History of Present Illness Chief Complaint: Shortness of Breath Informant: Patient Narrative: Patient sent down from transitional care unit for increased work of breathing. They diuresed 3 L all from today with diuretics. He has no complaints at this time. He states sometimes he feels short of breath. He is not short of breath currently. He is on 1 L nasal cannula oxygen. He was recently admitted for CHF. He has a PICC line in his right arm for osteomyelitis. He was recently admitted to the hospital for CHF and pneumonia ruled out. On chronic Unasyn for his osteomyelitis. He recently finished antibiotics for pneumonia as well. Denies any fevers or chills. They have been given him diuretic today and diuresed him well. He denies any increased weight gain but is not sure. He appears to be a poor historian. Denies any chest pain or other symptoms - Past Medical History (1) Acute hypoxic respiratory failure Status: Acute (2) Acute on chronic systolic and diastolic heart failure, NYHA class 3 Status: Acute (3) Acute on chronic systolic congestive heart failure Status: Acute (4) Acute respiratory failure with hypoxia Status: Acute (5) Debility Status: Acute (6) Osteomyelitis of great toe of right foot Status: Acute (7) Pneumonia Status: Acute (8) Atherosclerotic heart disease of chilk[place] coronary artery without angina pectoris Status: Chronic (9) CAD (coronary artery disease) Status: Chronic (10) Carotid artery stenosis Status: Chronic Comment: R CEA 2017 (11) 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 Status: Chronic (12) 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 (13) Diabetes mellitus Status: Chronic (14) 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 without evidence of necrosis Status: Chronic (15) Elevated troponin Status: Chronic (16) Elevation of cardiac enzymes Status: Chronic Comment: Normal stress test (17) Essential (primary) hypertension Status: Chronic (18) H/O coronary artery bypass surgery Status: Chronic (19) History of CVA (cerebrovascular accident) Status: Chronic (20) History of non-ST elevation myocardial infarction (NSTEMI) Status: Chronic (21) Hyperlipidemia Status: Chronic (22) Hypertension Status: Chronic (23) Ischemic cardiomyopathy Status: Chronic (24) Mass of right lung Status: Chronic Comment: bronchoscopy 07/2019 (25) Multiple falls Status: Chronic (26) Near syncope Status: Chronic (27) 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 (28) Peripheral arterial occlusive disease Status: Chronic (29) Peripheral vascular occlusive disease Status: Chronic Comment: RLE (30) Pleural effusion on left Status: Chronic Comment: loculated per CT Chest 07/2019 thoracentesis 07/2019 (31) Right bundle branch block (RBBB) Status: Chronic (32) Stroke Status: Chronic Past Medical History - Allergies and Home Meds Allergies/Adverse Reactions: Allergies Xnpbnsf-Eat-Uvl Reductase Inhibitor Adverse Reaction (Severe, Verified 08/19/20 23:09) mylagias lisinopril Adverse Reaction (Verified 08/19/20 23:09) cough Primary Care Physician: Karen Lowe MD [Primary Care Provider] - Prior records reviewed: Yes Past Medical History: - - See problem list Surgical History: coronary bypass surgery - x 3., - - Right CEA. Smoking Status: Former smoker Alcohol: None Drugs: None - Family History Maternal Family History: Reports: - - Patient denies any market maternal family history including heart disease, diabetes, cancer. Paternal Family History: Reports: Heart Disease Review of Systems General: Denies: Chills, Fever, Sweats Eyes: Denies: Visual changes - bilaterally, Diplopia ENT: Denies: Rhinorrhea, Sore throat Cardiovascular: Denies: Chest pain, Palpitations Respiratory: Reports: Dyspnea. Denies: Cough, Dyspnea on exertion Gastrointestinal: Denies: Abdominal pain, Nausea, Vomiting, Diarrhea, Melena, Hematochezia Genitourinary: Denies: Dysuria, Hematuria, Frequency Musculoskeletal: Denies: Back pain, Extremity Pain Skin: Denies: Rash, Wounds Neurological: Reports: Weakness. Denies: Headache, Numbness Physical Exam Vital Signs/Narrative: Vital Signs Temp Pulse Resp BP Pulse Ox 08/19/20 22:51 97.3 F L 87 33 H 171/78 H 93 General: Well nourished, Well developed, No Acute Distress, - - She appears tired Head: Normocephalic, Atraumatic Eyes: Perrl, EOMI ENT: Moist mucous membranes, No rhinorrhea Neck: Supple, Nontender Cardiovascular: Regular rate, Regular rhythm, No murmurs Respiratory: CTA bilaterally, Chest nontender, - - Very mild tachypnea. Negative for: Retractions Abdomen: Soft, Nontender, Nondistended, Normal bowel sounds Back: Nontender, Normal Inspection Extremities: Nontender, No edema, - - Great toe is wrapped without any redness Skin: Normal color, No rash Neurological: Alert, Oriented x3, Cranial nerves II-XII grossly intact, Normal Strength, Normal Sensation Psychological: Normal affect, Normal Mood Diagnostic/Tx/Re-eval - Medical Decision Making Upon arrival patient resting comfortably on nasal cannula oxygen 1 L. Does not appear in any significant respiratory distress. Lab work chest x-ray EKG obtained. Lab work shows a leukocytosis of 20,000 but the patient has a history of chronic leukocytosis. He is on Unasyn for treatment of osteomyelitis which does not appear worse. He is followed by ID. Chest x-ray shows chronic infiltrates however these are chronic and there is no acute findings to suggest any worsening. Patient has an initial troponin of 0.0 6 repeat 4 hours later 0.04. Is gone down. He has a history of mildly elevated troponins in the past. Last month he had a mildly elevated troponin was admitted and had a negative stress test cardiac rule out. Patient has chronic CHF given Lasix. He did diurese approximately 0.5 L more. He is on chronic Lasix. He takes Lovenox th erefore I do not feel he has a PE. Reevaluation he is sleeping comfortably with a pulse ox in the mid 90s on nasal cannula. I do not think he needs to be readmitted to the hospital. He was just discharged from the hospital. We will be discharged back to the TCU for further work-up and treatment. EKG shows sinus rhythm with sinus arrhythmia first-degree AV block rate of 85. Right bundle branch block noted. Unchanged from previous EKG. No acute STEMI. ED Disposition - Plan for ED Patient: Disposition: Order Selector Acute Care Diagnosis: Chronic congestive heart failure Instructions: ED Heart Failure, Congestive (CHF) Referrals: Karen Lowe MD [Primary Care Provider] -
[2020-08-19 23:37] LABS: Anion Gap 0 (5-15); BUN 40 mg/dL (7-18); BUN/Creat Ratio 41.5 RATIO (10-20); Calcium,Total 8.9 mg/dL (8.5-10.1); Chloride 96 mmol/L (98-107); Creatinine, Serum 0.96 mg/dL (0.70-1.30); EST Glomerular Filtration Rate 80 mL/min (>60); Est Glom Filt Rate - Afr Amer 97 mL/min (>60); Estimated Creatinine Clearance 68.48 ml/min; Glucose 216 mg/dL (74-106); Potassium 3.9 mmol/L (3.5-5.1); Sodium Level 138 mmol/L (136-145)
[2020-08-19 23:40] LABS: Absolute Lymphocyte Count 0.56 X10^3/uL (0.83-4.51); Absolute Neutrophil Count 17.3 X10^3/uL (2.0-7.7); Basophil% 0.5 % (0-1); Eosinophils% 6.3 % (0-5); Hematocrit 33.6 % (40-54); Hemoglobin 10.3 g/dL (13.0-16.5); Lymphocyte # 0.56 X10^3/ul (4.0); Lymphocyte % 2.7 % (19-41); Mean Corp Hgb Conc 30.7 g/dL (32-36); Mean Corpuscular Hgb 29.5 pg (27.0-32.0); Mean Corpuscular Volume 96.3 fL (80-94); Mean Platelet Vol. 11.3 fl (6.2-12.0); Monocyte# 1.23 X10^3/uL; NRBC Flagged by Analyzer 0 % (0-5); Neutrophil # 17.31 X10^3/uL (2.7-7.7); Neutrophil % 83.9 % (47-70); POSITIVE DIFFERENTIAL YES; Platelet Count 309 K/mm3 (150-450); RBC Distribution Width CV 14.6 % (11.6-14.6); RBC Distribution Width SD 50.9 fl (35.1-43.9); Red Blood Count 3.49 M/mm3 (4.6-6.2); White Blood Count 20.6 K/mm3 (4.4-11.0)
[2020-08-19 23:41] LABS: Differential Indicated SCAN CRITERIA MET
[2020-08-19] MEDS: Alteplase 2 MG/2 ML Vial IV (23:49)
[2020-08-20] VITALS (7 sets, daily range): BP systolic 138–160; BP diastolic 66–82; PULSE 72–84; RESP 20–31; TEMP 36.2; O2SAT 92–97
[2020-08-20] MEDS: Furosemide 20 MG/2 ML VIAL IV (02:42)
== END 2020-08-20 05:32 ==
PROVIDERS: Emergency Provider Emergency Medicine; PCP Internal Medicine
DX: I50.22 Chronic systolic (congestive) heart failure (principal); I25.10 Atherosclerotic heart disease of native coronary artery without angina pectoris; E11.51 Type 2 diabetes mellitus with diabetic peripheral angiopathy without gangrene; Z95.1 Presence of aortocoronary bypass graft; Z87.891 Personal history of nicotine dependence; Z86.73 Personal history of transient ischemic attack (TIA), and cerebral infarction without residual deficits
CPT/HCPCS: 36592; 71045; 80048; 84484; 85025; 87040; 93005; 96374; 96375; 99282; J2997; A4216; J1940